=== PATIENT | female | born 1985 | race Caucasian/White ===

== ENCOUNTER → 2016-11-08 | Outpatient (CLI) | payer OTHER ==
[~2016-11-08] MED LIST: AMOX500C3 PO; BUDE1CAP6 PO; GADAVIST IV PRN; GLUCAGON FOR INJ 1 MG VIAL IM SCH; NURSING VERBAL MED ORDER ONE
--- NOTE | 2016-11-08 19:42 | DIAGNOSTIC IMAGING REPORT ---
MRI OF THE ABDOMEN AND PELVIS WITH AND WITHOUT CONTRAST ENTEROGRAPHY PROTOCOL CLINICAL HISTORY: Crohn's disease. COMPARISON STUDY: CT of the abdomen and pelvis July 19, [address] of the pelvis July 25, 2016. TECHNIQUE: Initially, the patient ingested oral contrast. Utilizing 1.5 Amy magnet and dedicated coil, multiplanar, multi echo imaging of the abdomen and pelvis was performed pre and postcontrast administration. Injection of 4.5 cc of Gadavist IV was uneventful. Post contrast imaging was performed utilizing dynamic enhancement. 1 mg of glucagon was administered IM at 11:12 AM. FINDINGS: There is a right lower quadrant diverting ileostomy. There are findings suggestive of a partial colectomy. Anorectal wall thickening and enhancement have likely improved since CT of July 25, 2016. Note is again made of indistinctness of the fat plane between the rectum and the levator musculature. A left perianal fistula with tiny associated 1.1 cm perianal abscess is noted. There is also a right perianal fistula. Several suspected perirectal fistulae are again noted. Associated inflammation is diminished since prior exams. There is no evidence for a bowel obstruction. No additional areas of bowel wall thickening are noted. There is no fluid within the abdomen. The liver, spleen, adrenal glands, kidneys and pancreas are normal. There is no hydronephrosis. Note is made of a cystic septated left adnexal lesion that measures 8.3 x 5.1 x 6 cm. This is similar to CT of July 25, 2016. Skeletal structures are unremarkable. IMPRESSION: 1. Findings consistent with a right lower quadrant diverting ileostomy and suspected partial colectomy. Anorectal wall thickening which has likely improved since CT of July 25, 2016. No additional sites of bowel wall thickening. No bowel obstruction. 2. Bilateral perianal fistulae with a small associated 1 cm left perianal abscess. Several perirectal fistulae. Associated inflammation has improved since prior exam. 3. No change in the 8.3 x 5.1 x 6 cm cystic septated left adnexal lesion. This could reflect a cystic ovarian lesion or peritoneal inclusion cyst. A follow-up pelvic ultrasound in 6 weeks is recommended. Electronically signed by: Car Gong M.D. 11/08/2016 7:40 PM Dictated Date/Time: 11/08/2016 11:57 AM
== END | disposition home or self-care (01) ==
LOC: C.MRI 09:34
PROVIDERS: ATTEND Internal Medicine Gastroenterology
DX: K50.90 Crohn's disease, unspecified, without complications (principal); K60.3 Anal fistula; K61.0 Anal abscess

== ENCOUNTER 2019-06-17 13:55 | Inpatient (IN) ==
--- OUTSIDE RECORDS SUMMARY | 2019-06-17 13:59 | External Medical Summary | Continuity of Care Document ---
:1985 Author Name Racquel Geiger, Provider Address Unavailable Unavailable , Care Team Providers Name Role Phone Mary Ellen Bolaños PA-C Unavailable [email or web address] WALKER Unavailable Unavailable Unavailable Unavailable Unavailable Problems Arthritis (716.90) (M19.90) Crohn's disease (555.9) (K50.90) Tachycardia-bradycardia (427.81) (I49.5) Pelvic mass in female (789.30) (R19.00) Allergies and Adverse Reactions Buffered Aspirin TABS (Allergy) Humira Pen KIT (Allergy) Ibuprofen CAPS (Allergy) Ketorolac TABS (Allergy) NSAIDs (Allergy) Remicade SOLR (Allergy) Sulfa Drugs (Allergy) Ultram TABS (Allergy) Medications Ferrous Sulfate 325 (65 Fe) MG Oral Tablet; TAKE 1 TABLET 3 TIMES DAILY. Start: 05-Jul-2015 Refills: 0 Multi Vitamin/Minerals TABS; TAKE 1 TABLET DAILY. Refills: 0 Procedures History of Small Bowel Resection Status: Completed History of Ileostomy Status: Completed History of Anal Fistulectomy Status: Com pleted Immunizations Immunizations not documented Family History Unknown Family Member Family history of Colon Cancer (V16.0) Status: Active C omments: Family History Family history of Cancer Status: Active Comments: Famil y History Mother Family history of cardiac disorder (V17.49) (Z82.49) Status: Active Grandfather Family history of cardiac disorder (V17.49) (Z82.49) Status: Active Social History - Smoking Status Smoker. current status unknown Plan of Treatment Planned Observations Planned Goals not documented Results No Known Results Results not documented Encounters Appointment; Mary Ellen Bolaños PA-C 03-Dec-2016 15:40 Encounter Diagnosis: Problem not documented
[2019-06-17 14:32] LABS: Partial Thromboplastin Ratio 0.8; Partial Thromboplastin Time 22.8 Seconds (21.0-31.0); Prothrombin Time 9.8 Seconds (9.0-12.0)
--- NOTE | 2019-06-17 14:36 | XRay Report ---
XR chest 1V portable CLINICAL HISTORY: sob dyspnea COMPARISON STUDY: 07/19/2015 FINDINGS: The bones soft tissues and hemidiaphragms are normal. The cardiomediastinal silhouette is n ormal. The lungs are clear. The pulmonary vasculature is normal. IMPRESSION: Negative chest. The above report was generated using voice recognition software. It may contain grammatical, syntax or spelling errors. Electronically signed by: Nathaniel Rivas M.D. 06/17/2019 2:35 PM
[2019-06-17 14:44] LABS: Albumin Level 3.2 gm/dl (3.4-5.0); BUN Creatinine Ratio 10.3 (10-20); Calcium 8.7 mg/dl (8.5-10.1); Creatinine Clr Calc Pharmacy 74.7 ml/min; Est GFR (African American) 107.5; Est GFR (Non-African American) 92.7; Potassium 3.6 mmol/L (3.5-5.1)
[2019-06-17 14:47] LABS: Albumin Globulin Ratio 0.7 (0.9-2); Bilirubin,Total 0.3 mg/dl (0.2-1); Globulin 4.6 gm/dl (2.5-4.0); Total Protein 7.8 gm/dl (6.4-8.2)
[2019-06-17] MEDS ORDERED: SODIUM CHLORIDE 0.9% 250 ML IV PRN (15:05)
[2019-06-17 15:26] LABS: Hematocrit (blood only) 21.3 % (37-47); Hemoglobin 5.3 g/dL (12.0-16.0); Mean Corpuscular Hgb Conc 24.9 g/dL (32-36); Platelet Count 299 K/uL (130-400); Red Blood Count 3.61 M/uL (4.2-5.4); White Blood Count 9.27 K/uL (4.8-10.8)
[2019-06-17 15:27] LABS: Anisocytosis Present; Basophils # (auto) 0.02 K/uL (0-0.2); Basophils % (auto) 0.2 %; Eosinophils % (auto) 1.1 %; Hypochromasia Present; Immature Granulocytes # (auto) 0.03 K/uL (0.00-0.02); Immature Granulocytes % (auto) 0.3 %; Lymphocytes # (auto) 1.11 K/uL (1.2-3.4); Microcytosis Present; Monocytes # (auto) 0.68 K/uL (0.11-0.59); Monocytes % (auto) 7.3 %; Neutrophils # (auto) 7.33 K/uL (1.4-6.5); Neutrophils % (auto) 79.1 %; Ovalocytes 1+; Schistocytes 1+
[2019-06-17 16:33] LABS: NT Pro B Type Natriuretic Pept 195 pg/ml (0-450); Troponin I < 0.015 ng/ml (0-0.045)
--- NOTE | 2019-06-17 17:14 | History & Physical Report ---
Date of Service June 17, 2019 Assessment & Plan (1) Severe anemia: Admit to inpatient on telemetry 3 units of crossmatched blood ordered in the ER and started there, continue orders. CBC every 12 hours DVT prophylaxis KATHRIN pichardo and Scd-s Iron study pending Full code Present on Admission?: Yes (2) Crohn disease: Stable patient is not taking any medication this time. Present on Admission?: Yes History of Present Illness Chief Complaint: severe anemia Primary Care Provider: Salome Molina 33 years old female with past medical history of Crohn disease and stoma placed 20 years ago prior drug abuse now on Suboxone presents to the emergency room after she was called by her PCP and informed that she has very low hemoglobin she will go to the emergency room as soon as possible. Patient reports that last night she went to [facility] [place] where she was checked and discharge in the morning. Patient H&H at that point was 5.2 and rechecked in the ER 5.3 /21.3. While in the ER patient was mildly tachycardic and blood bank was informed to secure 3 units of blood. Since patient received blood in the past and has antibodies 3 units were not given right away. Decision was made to admit patient on telemetry for blood transfusion. Allergies Allergy/AdvReac Type Severity Reaction Status Date / Time aspirin Allergy Severe ANAPHYLAXIS Unverified 06/17/19 14:57 infliximab Allergy Severe ANAPHYLAXIS Verified 06/17/19 14:57 NSAIDS (Non-Steroidal Allergy Unknown THROAT Verified 06/17/19 14:57 Anti-Inflamma SWELLING Sulfa (Sulfonamide Allergy Unknown throat Unverified 06/17/19 14:57 Antibiotics) swelling azathioprine AdvReac Unknown MIGRAINE Verified 06/17/19 14:57 Home Medications Home Medications Medication Instructions Recorded Confirmed Type acetaminophen [Tylenol] 650 - 975 mg PO TID PRN 06/17/19 06/17/19 History buprenorphine-naloxone [Suboxone] 0.5 film SUBLINGUAL TID 06/17/19 06/17/19 History Past Med/Surg History Medical History Crohn disease (Chronic) Rheumatoid arthritis (Chronic) History of MRSA infection (Chronic) "per records" Crohn's disease of colon with fistula (Acute) Endometriosis (Chronic) Surgical History H/O colectomy (Chronic) "total colectomy with ileoanal anastomosis 03/2006" Family History Other Blood clot in vein Social History Preferred Language: Pakistani Communication Ability: Effective 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 Beliefs That Will Affect Care: None Current Living Situation: Family Other Information That Helps Us Care for You: No Feels Safe at Home: Yes Safety Concerns: Feels Safe At This Time Smoking Status: Current every day smoker Tobacco Type: cigarettes ; Do You Dip or Chew Tobacco: No ; Second Hand Exposure: No ; Tobacco Cessation Education Requested by Patient: No Hx Alcohol Use: No Hx Substance Use: No Review of Systems Review of Systems: All systems reviewed & are unremarkable except as noted in HPI & below Physical Exam Constitutional: WD/WN, vitals as above well developed and + frail appearing Eyes: PERRL, conjunctivae normal, anicteric sclerae ENMT: external ear and nose normal, oropharynx normal Neck: trachea midline, no thyromegaly Respiratory: normal respiratory effort, lungs clear to auscultation Cardiovascular: RRR, no murmur, no edema Chest (Breasts): normal inspection/palpation of breasts Gastrointestinal (Abdomen): normal bowel sounds, soft, nontender, no hepatosplenomegaly Right-sided stoma, emptying properly clean dry and intact Musculoskeletal: no cyanosis or clubbing, extremities motor strength 5/5 Skin: no rashes, warm and dry Neurologic: patellar DTR's 2+ bilat, sensation intact Psychiatric: A+Ox3, euthymic affect Genitourinary: no vaginal lesions, no adnexal mass Lymphatic: no cervical or axillary lymphadenopathy Results & Data Vital Signs (Past 12 Hours) Vital Signs Temp Pulse Pulse Resp BP BP Pulse Ox 06/17/19 14:41 105 H 19 107/73 100 06/17/19 13:58 37.4 C 115 H 18 142/82 H 100 Code Status & VTE Plan Code Status Full code VTE Prophylaxis Plan VTE Prophylaxis will be ordered: No PG Care Time/CCT Total # of Minutes Spent Total Time Spent with Patient: Total time spent is greater than 50% in coordination of care (as documented) at patient's floor/unit and/or counseling patient:
[2019-06-17] MEDS ORDERED: POLYETHYLENE (MIRALAX) 17 GM PACK PO PRN (20:17)
[2019-06-17] MEDS ORDERED: ACETAMINOPHEN 325 MG TAB PO PRN (20:17)
[2019-06-17] MEDS ORDERED: ZOLPIDEM TARTRATE 5 MG TAB PO PRN (20:17)
[2019-06-17] MEDS ORDERED: ALUMINUM/MAGNESIUM SUSP 30 ML UDC PO PRN (20:17)
[2019-06-17] MEDS ORDERED: MAGNESIUM HYDROXIDE SUSP 30 ML UDC PO PRN (20:17)
[2019-06-17] MEDS ORDERED: BUPRENORPHINE NALOXONE SL SCH (21:00)
[2019-06-17] MEDS: BUPRENORPHINE/NALOXONE 8/2 MG TAB SL SCH (22:19)
--- NOTE | 2019-06-17 23:45 | Emergency Department Note ---
Entered by Raleigh Wilson acting as a scribe for Ignacio Ruiz MD ED Provider Note CHIEF COMPLAINT: Abnormal labs HISTORY OF PRESENT ILLNESS: The patient is a 33 year old female who presents to the Emergency Room with complaints of a constant low blood count shown on blood work she had done yesterday while at [facility]. The patient states that she originally went to the hospital after 4 days of constant lower extremity swelling. She notes she was on a water pill for 4 days however it did not improve her symptoms. The patient also notes that she has swelling and numbness that extends through her entire left lower extremity up to her hip. The patient reports she has a family history of blood clots so she believed that was the problem. She also notes that she feels some chest heaviness due to the fluid overload. While at [place] she had an unremarkable ultrasound however her lab work suggested that she did have a clot. The patient does have a history of Crohn's disease so she has had multiple blood transfusions for anemia. Since her Crohn's diagnosis, she had a colon resection and an ileostomy placed so she no longer is experiencing any hematochezia. She denies any blood in her ostomy bag. 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 Pt denies LOC, headache, fevers, chills, diaphoresis, visual changes, neck pain, breathing difficulties, nausea, vomiting, abdominal pain, back pain, melena, hematochezia, urinary symptoms, numbness, weakness, lymphadenopathy, rash, or other complaints. REVIEW OF SYSTEMS: See HPI for pertinent positives and negatives. A total of ten systems were reviewed and were otherwise negative. PMHx/PSHx: Crohn disease, RA, MRSA, Colectomy, Endometriosis SOCIAL HISTORY: Patient lives at home. PHYSICAL EXAM: GENERAL: Awake, alert, well-appearing, in no distress HENT: Normocephalic, atraumatic. Oropharynx unremarkable. EYES: Normal conjunctiva. Sclera non-icteric. NECK: Inspection normal. Non-tender. Supple. No nuchal rigidity. FROM. No masses. RESPIRATORY: Clear to auscultation. No wheezes. No rales. Normal respiratory effort. CARDIAC: Tachycardic rate. Normal rhythm. No murmurs. No rubs. Extremities warm and well perfused. Pulses equal. No JVD. GI: Soft, non-distended. No tenderness to palpation. No rebound or guarding. No masses. Ileostomy in the right lower quadrant. RECTAL: Deferred. MUSCULOSKELETAL: Atraumatic. Chest examination reveals no tenderness. The back is symmetrical on inspection without obvious abnormality. There is no CVA tende rness to palpation. No joint edema. LOWER EXTREMITIES: Calves are non-tender. 1+ bilateral edema, worse on the left. No discoloration. NEURO: Normal sensorium. No sensory or motor deficits noted. SKIN: Pale. No rash or jaundice noted. EMERGENCY DEPARTMENT COURSE: 1412: Past medical records reviewed. The patient was evaluated in room C09, and a complete history and physical examination were performed. 1510: I reevaluated and updated the patient. She consented to the blood transfusion. 1517: I spoke to Dr. Abreu - [facility] Hospitalist about the patient's case. She wi ll be accepting the patient for further evaluation. MEDICAL DECISION MAKING: C9 Prior records/ancillary studies reviewed. History of Crohn's. Ileostomy. Nursing notes reviewed and agree them. The patient's history was concerning for abnormal labs, leg swelling, and possi ble severe anemia. Differential diagnosis: Etiologies such as severe anemia, metabolic, infection, hypo/hyperglycemia, electrolyte abnormalities, cardiac sources, intracerebral event, toxicologic, , as well as others were entertained. Physical examination: As above. ER treatment provided: IV Lock Packed red blood cell transfusion. The patient was consented. 3 units of packed red blood cells ordered. On reassessment the patient felt better. Diagnostics interpretation by me: ECG: No acute ischemia. Sinus rhythm. The labs revealed severe anemia on CBC with hemoglobin of 5.3. No leukocytosis. The patient does not have any significant abnormalities for chemistry panel. Imaging studies: Chest x-ray was performed and was negative. Patient has severe anemia. She will need to be transfused. She was consented. I gave my usual and customary discussion regarding this issue. Consultation: A consultation was placed with the [facility] hospitalist. The case was discussed and diagnostics were reviewed. The patient was evaluated in the ER for further treatment. CRITICAL CARE: I have personally spent greater than 30 minutes of critical care time in the direct management of this patient. This includes bedside care, interpretation of diagnostic studies, and testing, discussion with consultants, patient, and family members, and other required patient management activities. This 30 minutes is in excess of all separately billable procedures. IMPRESSION: Severe anemia PLAN: Being evaluated by hospitalist The ivyibe's documentation has been prepared under my direction and personally reviewed by me in its entirety. I confirm that the note above accurately reflects all work, treatment, procedures, and medical decision making performed by me. 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 Beliefs That Will Affect Care: None Current Living Situation: Family Other Information That Helps Us Care for You: No Feels Safe at Home: Yes Safety Concerns: Feels Safe At This Time Smoking Status: Current every day smoker Tobacco Type: cigarettes ; Do You Dip or Chew Tobacco: No ; Second Hand Exposure: No ; Tobacco Cessation Education Requested by Patient: No Hx Alcohol Use: No Hx Substance Use: No Results & Data Vital Signs Vital Signs - 24 hr 06/17/19 13:58 06/17/19 14:41 06/17/19 15:00 Temperature 37.4 C Temperature Source Oral Sepsis Recent Fever Within 48 Hours No Sepsis New/Unexplained Change in Mental Status No Sepsis Action Taken by Nursing No Action Required Pulse Rate 115 H 93 H Pulse Rate [Apical] 105 H Pulse Rate from SpO2 Sensor Respiratory Rate 18 19 18 Respiratory Effort / Characteristics Non-Labored Spontaneous Respiratory Depth Normal Normal Respiratory Pattern Regular Blood Pressure 142/82 H Blood Pressure [Right Arm] 107/73 Blood Pressure Mean 102 Blood Pressure Mean [Right Arm] 84 Pulse Oximetry 100 100 Oxygen Delivery Method Room Air Room Air 06/17/19 15:03 06/17/19 15:30 06/17/19 16:00 Temperature Temperature Source Sepsis Recent Fever Within 48 Hours Sepsis New/Unexplained Change in Mental Status Sepsis Action Taken by Nursing Pulse Rate 108 H 83 82 Pulse Rate [Apical] Pulse Rate from SpO2 Sensor 109 H 82 80 Respiratory Rate 22 14 13 Respiratory Effort / Characteristics Respiratory Depth Respiratory Pattern Blood Pressure 114/62 100/57 L 144/95 H Blood Pressure [Right Arm] Blood Pressure Mean 79 71 111 Blood Pressure Mean [Right Arm] Pulse Oximetry 100 99 100 Oxygen Delivery Method 06/17/19 16:30 06/17/19 17:00 06/17/19 17:15 Temperature Temperature Source Sepsis Recent Fever Within 48 Hours Sepsis New/Unexplained Change in Mental Status Sepsis Action Taken by Nursing Pulse Rate 77 72 88 Pulse Rate [Apical] Pulse Rate from SpO2 Sensor 79 72 Respiratory Rate 13 10 L 15 Respiratory Effort / Characteristics Respiratory Depth Respiratory Pattern Blood Pressure 128/83 Blood Pressure [Right Arm] Blood Pressure Mean 98 Blood Pressure Mean [Right Arm] Pulse Oximetry 100 100 Oxygen Delivery Method Home Medications Current Medication List: was personally reviewed by me Laboratory Data Attestation: I reviewed the patient's lab results. Result diagrams: 06/17/19 14:15 06/17/19 14:15 Lab Results 06/17/19 06/17/19 06/17/19 Range/Units 14:15 14:15 14:15 WBC 9.27 (4.8-10.8) K/uL RBC 3.61 L (4.2-5.4) M/uL Hgb 5.3 L* (12.0-16.0) g/dL Hct 21.3 L (37-47) % MCV 59.0 L (80-100) fL MCH 14.7 L (25-34) pg MCHC 24.9 L (32-36) g/dL Plt Count 299 (130-400) K/uL Immature Gran % (Auto) 0.3 % Neut % (Auto) 79.1 % Lymph % (Auto) 12.0 % [place] % (Auto) 7.3 % Eos % (Auto) 1.1 % Baso % (Auto) 0.2 % Immature Gran # (Auto) 0.03 H (0.00-0.02) K/uL Neut # (Auto) 7.33 H (1.4-6.5) K/uL Lymph # (Auto) 1.11 L (1.2-3.4) K/uL [place] # (Auto) 0.68 H (0.11-0.59) K/uL Eos # (Auto) 0.10 (0-0.5) K/uL Baso # (Auto) 0.02 (0-0.2) K/uL Hypochromasia Present Anisocytosis Present Microcytosis Present Ovalocytes 1+ Schistocytes 1+ PT 9.8 (9.0-12.0) Seconds INR 1.0 (0.9-1.1) APTT 22.8 (21.0-31.0) Seconds PTT Ratio 0.8 Sodium 137 (136-145) mmol/L Potassium 3.6 (3.5-5.1) mmol/L Chloride 105 (98-107) mmol/L Carbon Dioxide 25 (21-32) mmol/L Anion Gap 7.0 (3-11) BUN 8 (7-18) mg/dl Creatinine 0.82 (0.6-1.2) mg/dl Est Cr Clr Drug Dosing 74.7 ml/min Est GFR ( Amer) 107.5 Est GFR (Non-Af Amer) 92.7 BUN/Creatinine Ratio 10.3 (10-20) Glucose 109 H (70-99) mg/dl Calcium 8.7 (8.5-10.1) mg/dl Total Bilirubin 0.3 (0.2-1) mg/dl AST 9 L (15-37) U/L ALT 9 L (12-78) U/L Alkaline Phosphatase 101 (45-117) U/L Troponin I (0-0.045) ng/ml NT-Pro-B Natriuret Pep (0-450) pg/ml Total Protein 7.8 (6.4-8.2) gm/dl Albumin 3.2 L (3.4-5.0) gm/dl Globulin 4.6 H (2.5-4.0) gm/dl Albumin/Globulin Ratio 0.7 L (0.9-2) Blood Type Antibody Screen Crossmatch 06/17/19 06/17/19 Range/Units 14:15 14:15 WBC (4.8-10.8) K/uL RBC (4.2-5.4) M/uL Hgb (12.0-16.0) g/dL Hct (37-47) % MCV (80-100) fL MCH (25-34) pg MCHC (32-36) g/dL Plt Count (130-400) K/uL Immature Gran % (Auto) % Neut % (Auto) % Lymph % (Auto) % [place] % (Auto) % Eos % (Auto) % Baso % (Auto) % Immature Gran # (Auto) (0.00-0.02) K/uL Neut # (Auto) (1.4-6.5) K/uL Lymph # (Auto) (1.2-3.4) K/uL [place] # (Auto) (0.11-0.59) K/uL Eos # (Auto) (0-0.5) K/uL Baso # (Auto) (0-0.2) K/uL Hypochromasia Anisocytosis Microcytosis Ovalocytes Schistocytes PT (9.0-12.0) Seconds INR (0.9-1.1) APTT (21.0-31.0) Seconds PTT Ratio Sodium (136-145) mmol/L Potassium (3.5-5.1) mmol/L Chloride (98-107) mmol/L Carbon Dioxide (21-32) mmol/L Anion Gap (3-11) BUN (7-18) mg/dl Creatinine (0.6-1.2) mg/dl Est Cr Clr Drug Dosing ml/min Est GFR ( Amer) Est GFR (Non-Af Amer) BUN/Creatinine Ratio (10-20) Glucose (70-99) mg/dl Calcium (8.5-10.1) mg/dl Total Bilirubin (0.2-1) mg/dl AST (15-37) U/L ALT (12-78) U/L Alkaline Phosphatase (45-117) U/L Troponin I < 0.015 (0-0.045) ng/ml NT-Pro-B Natriuret Pep 195 (0-450) pg/ml Total Protein (6.4-8.2) gm/dl Albumin (3.4-5.0) gm/dl Globulin (2.5-4.0) gm/dl Albumin/Globulin Ratio (0.9-2) Blood Type B Positive Antibody Screen NEGATIVE Crossmatch See Detail Administered Medications Buprenorphine/Naloxone (Suboxone 8 Mg/2 Mg) 0.5 tab SL TID XENA Stop: 07/17/19 20:59 Last Admin: 06/17/19 22:19 Dose: 0.5 tab Documented by: [id number] Imaging Data Radiologist's Impression: Radiology results as stated below per my review and the radiologist's interpretation: XR chest 1V portable CLINICAL HISTORY: sob dyspnea COMPARISON STUDY: 07/19/2015 FINDINGS: The bones soft tissues and hemidiaphragms are normal. The cardiomediastinal silhouette is normal. The lungs are clear. The pulmonary vasculature is normal. IMPRESSION: Negative chest. The above report was generated using voice recognition software. It may contain grammatical, syntax or spelling errors. Electronically signed by: Nathaniel Rivas M.D. 06/17/2019 2:35 PM ECG Data Attestation: I personally reviewed and interpreted this ECG as follows: Indication: other (Abnormal labs) Rate (beats per minute): 107 Rhythm: sinus tachycardia Findings: + Q waves (Anterioseptal); no PAC, no PVC, no ST depression, no ST elevation and no ectopy Blood Pressure Blood Pressure Findings: Normal blood pressure Discharge Plan Visit Data *Final* Discharge Date/Time: 06/17/19 19:20 Chief Complaint: Abnormal Labs/Diagnostic Testing Stated Complaint: LOW HEMOGLOBIN, INFECTION ED Provider: Ignacio Ruiz Discharge Problem: Severe anemia Patient Disposition: Admitted As Inpatient Discharge Instructions Interventions: ED Discharge Assessment Last Done: 06/17/19 19:20 The scribe's documentation has been prepared under my direction and personally reviewed by me in its entirety. I confirm that the note above accurately reflects all work, treatment, procedures, and medical decision making performed by me.
[2019-06-18 07:06] LABS: Hematocrit (blood only) 33.3 % (37-47); Hemoglobin 9.9 g/dL (12.0-16.0); Mean Corpuscular Hgb Conc 29.7 g/dL (32-36); Mean Corpuscular Volume 70.9 fL (80-100); Platelet Count 217 K/uL (130-400); RDW Coefficient of Variation 28.3 % (11.5-14.5); RDW Standard Deviation 72.9 fL (36.4-46.3)
[2019-06-18 07:29] LABS: Albumin Level 2.7 gm/dl (3.4-5.0); BUN Creatinine Ratio 13.4 (10-20); Calcium 8.1 mg/dl (8.5-10.1); Est GFR (African American) 138.4; Est GFR (Non-African American) 119.4; Potassium 4.1 mmol/L (3.5-5.1)
[2019-06-18 07:31] LABS: Anisocytosis Present; Basophils # (auto) 0.02 K/uL (0-0.2); Basophils % (auto) 0.3 %; Eosinophils # (auto) 0.19 K/uL (0-0.5); Eosinophils % (auto) 2.6 %; Hypochromasia Present; Immature Granulocytes # (auto) 0.01 K/uL (0.00-0.02); Immature Granulocytes % (auto) 0.1 %; Lymphocytes # (auto) 0.97 K/uL (1.2-3.4); Lymphocytes % (auto) 13.1 %; Microcytosis Present; Monocytes # (auto) 0.58 K/uL (0.11-0.59); Monocytes % (auto) 7.8 %; Neutrophils # (auto) 5.63 K/uL (1.4-6.5); Neutrophils % (auto) 76.1 %; Poikilocytosis Present; Polychromasia 2+; Reticulocyte % 0.8 % (0.5-2.0); Reticulocytes # 0.04 10^6/uL (0.02-0.10)
[2019-06-18 07:33] LABS: Albumin Globulin Ratio 0.6 (0.9-2); Bilirubin,Total 0.7 mg/dl (0.2-1); Globulin 4.2 gm/dl (2.5-4.0); Total Protein 6.9 gm/dl (6.4-8.2)
[2019-06-18] MEDS: BUPRENORPHINE/NALOXONE 8/2 MG TAB SL SCH ×2 (08:11→13:16)
[2019-06-18 08:23] LABS: Folate (Folic Acid) 11.74 ng/ml (>5.38)
[2019-06-18] MEDS ORDERED: CYANOCOBALAMIN 500 MCG TABLET (VITAMIN B-12) PO SCH (11:00)
[2019-06-18] MEDS ORDERED: IRON SUCROSE 100 MG in 0.9 % SODIUM CHLORIDE 100 ML IV SCH (11:30)
--- NOTE | 2019-06-20 15:36 | Discharge Summary ---
Date of Service June 20, 2019 Admission HPI Per Admitting Provider 33 year old female with past medical history of Crohn's disease and ileostomy placed 20 years ago along with prior drug abuse (now on Suboxone) presents to the emergency room after she was called by her PCP and informed that she had very low hemoglobin. Hb at time of [facility] ER presentation was 5.3. Denies any recent change in the appearance of her stool (no melena or bright red blood). She also reports her Crohn's has been inactive for some time. Principal Diagnosis severe iron deficiency anemia Discharge Exam Constitutional + thin; no acute distress ENMT external ear and nose normal, oropharynx normal Respiratory normal respiratory effort, lungs clear to auscultation Cardiovascular Rate/Rhythm: regular rate and regular rhythm Heart Sounds: normal S1 and normal S2; no murmur Vessels: posterior tibial pulses present and dorsalis pedis pulses present; no JVD Extremities: no edema Gastrointestinal (Abdomen) normal bowel sounds, soft, nontender, no hepatosplenomegaly ileostomy in place with yellow/brown stool; no gross blood; no melena Skin no rashes, warm and dry Psychiatric A+Ox3, euthymic affect Discharge Data Allergies Allergy/AdvReac Type Severity Reaction Status Date / Time aspirin Allergy Severe ANAPHYLAXIS Unverified 06/17/19 14:57 infliximab Allergy Severe ANAPHYLAXIS Verified 06/17/19 14:57 NSAIDS (Non-Steroidal Allergy Unknown THROAT Verified 06/17/19 14:57 Anti-Inflamma SWELLING Sulfa (Sulfonamide Allergy Unknown throat Unverified 06/17/19 14:57 Antibiotics) swelling azathioprine AdvReac Unknown MIGRAINE Verified 06/17/19 14:57 Procedures Performed 1. 3 units PRBCs 2. fecal occult blood NEGATIVE 3. IV venofer x 1 infusion Hospital Course (1) Iron deficiency anemia: The patient's presenting Hb was 5.3, improving to 9.9 post-transfusion of 3 units PRBCs. She tolerated the blood well without reaction or volume overload. Ferritin was 2 c/w severe iron deficiency B12 level was low-normal in the low 300s. Folate was normal. Stool from her ileostomy was heme negative. She does not have regular menses. She reports having had a total colectomy and also a large portion of her small bowel removed in the past because of her Crohn's disease. Thus, she is likely NOT absorbing any dietary iron (or b12) leading to her anemia. Venofer x 1 was given while hospitalized in addition to the PRBCs. She will be set up with Dr Murray Warren at the [facility] for ongoing treatment of her severe anemia. She will likely need additional runs of IV iron. I asked her to also take oral vitamin B12 daily at home. She may need parentera l injections of this. (2) Crohn disease: quiescent. has not had regular follow-up for this in some time. she was previously followed by GI out of the [facility] in [place]. recommended that she re-establish care with GI. (3) Ileostomy status: no issues. ostomy functioning well. Total Time Total Time Spent Total Time Spent (In Minutes): 40 Total Time Includes: Examination of the Patient, Discharge Planning, Medication Reconciliation and Communication With Other Providers (oncology/hematology) Discharge Plan Discharge Items Patient Disposition: Home - Self-Care Reason For Visit: SEVERE ANEMIA Discharge Diagnosis: severe iron deficiency anemia requiring 3 units of blood Discharge Goals: Diagnostic testing and Therapeutic intervention Activity: As commented below Activity Comment: avoid strenuous activities for 3-4 days then gradually increase activity Non-emergency contact: Primary Care Provider and Specialist Call non-emergency contact if: you have any medication questions, your symptoms worsen and your temperature is above 100.5 Follow-up/Referrals: Murray Warren DO [Physician] - 06/19/19 12:30 pm (An appointment has been made on your behalf with [facility] [place] [facility] to manage your anemia. Your appointment is at 12:30pm but the nurse will need to meet with you beginning at 12:20pm to complete paperwork for first appointment. Please call the office with questions or concerns. Thank you! ) Salome Molina PA-C [Primary Care Provider] - 07/01/19 11:15 am (An appointment has been made at your PCP's office on your behalf. Please call the office with any questions or concerns.) Diet: Low Fiber Addtl Provider Instructions: You were admitted for severe iron deficiency anemia. Your initial hemoglobin was 5.3, improving to 9.9 at time of discharge. Your iron deficiency is likely due to inability to absorb iron from your diet because of prior bowel resections. Your stool was NEGATIVE for blood making blood loss from your GI tract less likely. You will likely need additional IV iron infusions. Your b12 level was also low-normal. Recommendations - 1. see the [facility] at [facility] to discuss additional IV iron infusions. 2. see your GI doctor in [place] to ensure your Crohn's disease is controlled/stable. I would do this in the next 2-3 weeks. 3. take [id number] vitamin B12 1000mcg daily - perhaps indefinitely. You may need injections of this - you can discuss this with the ribbon blocker (blood specialist). 4. follow-up with your family doctor as scheduled (see separate section). Return to [facility] if - -you have dizziness or lightheadedness -you have palpitations/rapid heart beating -you have shortness of breath -you have worsening swelling of your feet/ankles -you have blood in your ostomy bag (dark stool/black stool or bright red blood) -any other concerns Prescriptions: New cyanocobalamin (vitamin B-12) [Vitamin B-12] 500 mcg Tablet 1,000 mcg PO QAM Qty: 60 RF: 0 Continued acetaminophen [Tylenol] 325 mg Tablet 650 - 975 mg PO TID PRN (Reason: Pain) RF: 0 buprenorphine-naloxone [Suboxone] 8-2 mg film 0.5 film sublingual TID RF: 0 Stand-Alone Forms: My [facility] [employer] [facility]/Other Patient Handouts: Vitamin B12 Cyanocobalamin Oral tablet extended- release, Hemoglobin Discharge Orders: Discharge Order (Routine); Ordered 06/18/19 Ordered By: Chapin Garcia Admission Data Admit Date/Time: 06/17/19 17:22 Attending Provider: Chapin Garcia Admit Provider: Deedee Abreu Primary Care Provider: Salome Molina Other Providers: Deedee Abreu Service: Telemetry Other Interventions: Discharge Summary Assessment (RN) Last Done: 06/18/19 15:06 Pending Studies at Discharge: No DC Date/Time DO NOT enter until pt leaves facility: 06/18/19 15:59
== END 2019-06-18 15:59 | disposition home or self-care (01) | DRG 812 ==
LOC: ED 13:55 → SUATTDRO 17:22 → 2S 17:22

== ENCOUNTER 2022-08-26 14:53 | Observation (INO) ==
[2022-08-26 16:06] LABS: Basophils # (auto) 0.01 K/uL (0-0.2); Basophils % (auto) 0.2 %; Eosinophils # (auto) 0.02 K/uL (0-0.50); Eosinophils % (auto) 0.4 %; Hematocrit (blood only) 39.5 % (34.1-44.9); Hemoglobin 12.7 g/dl (12.0-16.0); Immature Granulocytes # (auto) 0.02 K/uL (0.00-0.02); Immature Granulocytes % (auto) 0.4 %; Lymphocytes # (auto) 0.86 K/uL (1.2-3.4); Mean Corpuscular Hemoglobin 26.3 pg (25.0-34.0); Mean Corpuscular Hgb Conc 32.2 g/dL (32.0-36.0); Mean Corpuscular Volume 81.8 fL (80.0-100.0); Monocytes # (auto) 0.35 K/uL (0.24-0.82); Monocytes % (auto) 7.3 %; Neutrophils # (auto) 3.52 K/uL (1.4-6.5); Neutrophils % (auto) 73.7 %; Platelet Count 176 K/uL (130-400); RDW Coefficient of Variation 17.4 % (11.5-14.5); RDW Standard Deviation 51.6 fL (36.4-46.3); Red Blood Count 4.83 M/uL (3.93-5.22); White Blood Count 4.78 K/ul (4.8-10.8)
--- NOTE | 2022-08-26 16:24 | Emergency Department Note ---
Impression & Plan Abdominal pain, Crohn disease, UTI (urinary tract infection), Acute hypokalemia, Metabolic acidosis ED Provider Note NAME: JANAY GIL AGE: 36 SEX: F : 1985 ARRIVES VIA: Ambulance INFORMANT: Patient ED PROVIDER(S): Pérez Vidal DO CHIEF COMPLAINT: abdominal pain HPI: Patient is a 36-year-old female with a past medical history of Crohn's disease with ileostomy, endometriosis, left ovarian mass which she is trying to schedule with [facility] for resection as they believe this is cancerous. This was discovered in May and has tripled in size. She denies any headache or change in vision. No chest pain or shortness of breath. Pain is a 10 out of 10 on the left side where her pain typically is but now has rotated to the right lower quadrant which is new. She has been having normal output through her ileostomy. She admits to dysuria urgency and frequency which has been present the whole time. No other exacerbating or remitting factors. She has not been able to keep anything down for the past 2 days. ROS: See above HPI for pertinent positives & negatives. A total of 10 systems reviewed and were otherwise negative. PAST MEDICAL HISTORY:See Below PAST SURGICAL HISTORY:See Below FAMILY HISTORY:See Below SOCIAL HISTORY:See Below HOME MEDICATIONS:See Below ALLERGIES:See Below VITALS:See Below PHYSICAL EXAMINATION: GENERAL: Sitting up in bed, alert, chronically ill-appearing, malnourished, cachectic EYE EXAM: normal conjunctiva. OROPHARYNX: no exudate, no erythema, lips, buccal mucosa, and tongue normal and mucous membranes are moist NECK: supple, no nuchal rigidity, no adenopathy, non-tender LUNGS: Clear to auscultation. Normal chest wall mechanics HEART: no murmurs, S1 normal and S2 normal ABDOMEN: abdomen soft, mild diffuse tenderness with ileum ostomy in right lower quadrant with the fourth of the bag filled UPPER EXTREMITIES: upper extremities are grossly normal. LOWER EXTREMITIES: No pitting edema. NEURO EXAM: Normal sensorium, cranial nerves II-XII grossly intact, normal speech, no gross weakness of arms, no gross weakness of legs. MEDICAL DECISION MAKING: Patient is a 36-year-old female who presents ER for abdominal pain which is chronic on the left side and new on the right side associate with nausea and vomiting. IV was established blood work was obtained. Labs show no significant anemia. Mild leukopenia at 4. BMP with a hypokalemia 2.7. Metabolic acidosis with a CO2 of 17. Glucose was significant low at 59. She was placed on D5 normal saline. She was given bolus of IV fluids. LFTs was unremarkable. Lipase was normal. UA does suggest a UTI. COVID was negative. Patient was given IV morphine. CT did not appear to be significantly changed from previous. She was updated bedside. Discussed with the hospitalist for further evaluation. Triage Nursing notes reviewed. Limited review of prior medical records performed Vital Signs: reviewed and remarkable for no significant abnormalities Differential diagnosis: Differential diagnoses includes but is not limited to gastritis, peptic ulcer disease, GERD, gallbladder disease, pancreatitis, small bowel obstruction, acute coronary syndrome, pericarditis, ischemic bowel, irritable bowel disease, irritable bowel syndrome, appendicitis, diverticulitis, malignancy, hernia, urinary tract infection, torsion, /ectopic (if female), perforation, trauma, infectious. ER treatment provided: See below Diagnostics interpreted by me: ECG: none Cardiac Monitoring: An order was placed for continuous cardiac monitoring. The monitor shows a rate of 91 with sinus rhythm. Laboratory studies: As stated above and show below. Imaging studies: CT abdomen pelvis without significant change from previous Consultation(s): Discussed with Vanessa Cooper for further evaluation Procedures: none Critical Care: None Past Med/Surg History Medical History (Updated 08/26/22 @ 21:06 by Pérez Vidal DO) Crohn disease Crohn's disease of colon with fistula Endometriosis History of MRSA infection "per records" Rheumatoid arthritis Surgical History H/O colectomy "total colectomy with ileoanal anastomosis 03/2006" Family History Other Blood clot in vein Social History Smoking Status: Current every day smoker Tobacco Type: Cigarettes Second Hand Exposure: No; Hx Alcohol Use: No Hx Substance Use: No Preferred Language: Tajik Communication Ability: Effective [employer] Required: No Beliefs That Will Affect Care: None Current Living Situation: Family Feels Safe at Home: Yes Assistive Devices: None Allergies Allergies Allergy/AdvReac Type Severity Reaction Status Date / Time aspirin Allergy Severe ANAPHYLAXIS Unverified 06/17/19 14:57 infliximab Allergy Severe ANAPHYLAXIS Verified 06/17/19 14:57 NSAIDS (Non-Steroidal Allergy Unknown THROAT Verified 06/17/19 14:57 Anti-Inflamma SWELLING Sulfa (Sulfonamide Allergy Unknown throat Unverified 06/17/19 14:57 Antibiotics) swelling azathioprine AdvReac Unknown MIGRAINE Verified 06/17/19 14:57 Home Meds Home Medications Medication Instructions Recorded Confirmed acetaminophen 500 mg tablet 1,000 mg PO Q6H PRN Pain 08/26/22 08/26/22 (Tylenol Extra Strength) buprenorphine HCl 8 mg sublingual 4 mg sublingual TID 08/26/22 08/26/22 tablet cefpodoxime 200 mg tablet 200 mg PO BID 08/26/22 08/26/22 cyanocobalamin (vitamin B-12) 1,000 mcg IM MO 08/26/22 08/26/22 1,000 mcg/mL injection solution epinephrine 0.3 mg/0.3 mL 0.3 mg IM Q4H PRN Allergic Reaction 08/26/22 08/26/22 injection, auto-injector fluticasone fur. 200 mcg-umeclid 1 inh inhalation DAILY 08/26/22 08/26/22 62.5 mcg-vilant 25 mcg inhalat.powder (Trelegy Ellipta) magnesium oxide 400 mg (241.3 mg 400 mg PO DAILY 08/26/22 08/26/22 magnesium) tablet potassium chloride 20 mEq 20 meq PO DAILY 08/26/22 08/26/22 tablet,extended release(part/cryst) Previous Rx's Medication Instructions Recorded cyanocobalamin (vitamin B-12) 500 1,000 mcg PO QAM #60 tabs 06/18/19 mcg tablet (Vitamin B-12) Results & Data (ED) Vital Signs Vital Signs - 24 hr 08/26/22 15:03 08/26/22 15:42 08/26/22 15:43 Temperature 37.0 C Temperature Source Oral Pulse Rate 112 H 91 H Pulse Rate from SpO2 Sensor Pulse Rhythm Regular Pulse Strength Normal Respiratory Rate 18 14 Respiratory Effort / Characteristics Non-Labored Spontaneous Respiratory Depth Normal Respiratory Pattern Regular Blood Pressure 111/74 100/74 Blood Pressure Mean 86 82 Blood Pressure Position Sitting Pulse Oximetry 98 95 95 Oxygen Delivery Method Room Air Room Air Sepsis Recent Fever Within 48 Hours No Sepsis New/Unexplained Change in Mental Status No Sepsis Action Taken by Nursing No Action Required 08/26/22 16:00 08/26/22 17:00 08/26/22 18:30 Temperature Temperature Source Pulse Rate 86 68 60 Pulse Rate from SpO2 Sensor 66 Pulse Rhythm Pulse Strength Respiratory Rate 14 15 16 Respiratory Effort / Characteristics Respiratory Depth Respiratory Pattern Blood Pressure 103/73 92/57 L 93/69 L Blood Pressure Mean 83 68 77 Blood Pressure Position Pulse Oximetry 96 100 100 Oxygen Delivery Method Sepsis Recent Fever Within 48 Hours Sepsis New/Unexplained Change in Mental Status Sepsis Action Taken by Nursing 08/26/22 19:01 08/26/22 19:30 08/26/22 20:00 Temperature Temperature Source Pulse Rate 55 L 67 71 Pulse Rate from SpO2 Sensor 57 L 66 Pulse Rhythm Pulse Strength Respiratory Rate 15 17 15 Respiratory Effort / Characteristics Respiratory Depth Respiratory Pattern Blood Pressure 81/60 L 109/74 99/65 L Blood Pressure Mean 67 85 76 Blood Pressure Position Pulse Oximetry 100 97 97 Oxygen Delivery Method Room Air Room Air Sepsis Recent Fever Within 48 Hours Sepsis New/Unexplained Change in Mental Status Sepsis Action Taken by Nursing 08/26/22 20:30 08/26/22 21:00 Temperature Temperature Source Pulse Rate 79 75 Pulse Rate from SpO2 Sensor Pulse Rhythm Pulse Strength Respiratory Rate 17 19 Respiratory Effort / Characteristics Respiratory Depth Respiratory Pattern Blood Pressure 113/72 107/75 Blood Pressure Mean 85 85 Blood Pressure Position Pulse Oximetry 96 98 Oxygen Delivery Method Room Air Room Air Sepsis Recent Fever Within 48 Hours Sepsis New/Unexplained Change in Mental Status Sepsis Action Taken by Nursing Laboratory Data Result diagrams: 08/26/22 15:00 08/26/22 17:15 Lab Results 08/26/22 08/26/22 08/26/22 Range/Units 15:00 15:00 15:35 WBC 4.78 L (4.8-10.8) K/ul RBC 4.83 (3.93-5.22) M/uL Hgb 12.7 (12.0-16.0) g/dl POC Hgb (12.0-16.0) g/dl Hct 39.5 (34.1-44.9) % POC Hct (37-47) % MCV 81.8 (80.0-100.0) fL MCH 26.3 (25.0-34.0) pg MCHC 32.2 (32.0-36.0) g/dL RDW Std Deviation 51.6 H (36.4-46.3) fL RDW Coeff of Qu[place] 17.4 H (11.5-14.5) % Plt Count 176 (130-400) K/uL MPV 11.0 (9.4-12.3) fL Immature Gran % (Auto) 0.4 % Neut % (Auto) 73.7 % Lymph % (Auto) 18.0 % Bell % (Auto) 7.3 % Eos % (Auto) 0.4 % Baso % (Auto) 0.2 % Neut # (Auto) 3.52 (1.4-6.5) K/uL Lymph # (Auto) 0.86 L (1.2-3.4) K/uL Bell # (Auto) 0.35 (0.24-0.82) K/uL Eos # (Auto) 0.02 (0-0.50) K/uL Baso # (Auto) 0.01 (0-0.2) K/uL Immature Gran # (Auto) 0.02 (0.00-0.02) K/uL POC Sodium (135-144) mmol/L Sodium Cancelled POC Potassium (3.3-5.0) mmol/L Potassium Cancelled POC Chloride (101-112) mmol/L Chloride Cancelled Carbon Dioxide Cancelled POC Total CO2 (24-31) mmol/L Anion Gap Cancelled POC Anion Gap (16-25) mmol/L POC BUN (7-18) mg/dl BUN Cancelled Creatinine Cancelled POC Creatinine (0.6-1.3) mg/dl Est Cr Clr Drug Dosing Cancelled Est GFR ( Amer) Cancelled Est GFR (Non-Af Amer) Cancelled BUN/Creatinine Ratio Cancelled Glucose Cancelled POC Glucose (70-99) mg/dl POC Glucose (other) (70-99) mg/dl Calcium Cancelled POC Ioniz Calcium Saadia (1.12-1.32) mmol/l Magnesium (1.7-2.4) mg/dl Total Bilirubin Cancelled AST Cancelled ALT Cancelled Alkaline Phosphatase Cancelled Total Protein Cancelled Albumin Cancelled Globulin Cancelled Albumin/Globulin Ratio Cancelled Lipase Cancelled Urine Color Dark Yellow Urine Appearance Cloudy A (Clear) Urine pH 7.0 (4.5-7.5) Ur Specific [place] 1.029 (1.000-1.030) Urine Protein 2+ H (Negative) Urine Glucose (UA) Negative (Negative) Urine Ketones Trace H (Negative) Urine Blood 2+ H (Negative) Urine Nitrite Negative (Negative) Urine Bilirubin Negative (Negative) Urine Urobilinogen Negative (Negative) Ur Leukocyte Esterase 3+ H (Negative) Urine WBC (Auto) >30 H (0-5) /hpf Urine RBC (Auto) 10-30 H (0-4) /hpf U Hyaline Cast (Auto) 1-5 (0-5) /lpf U Epithel Cells (Auto) 10-20 H (0-5) /lpf Urine Bacteria (Auto) Negative (Negative) POC Ur Test (NEG) SARS-CoV-2, RNA, NAAT (NEGATIVE) 08/26/22 08/26/22 08/26/22 Range/Units 15:35 17:15 17:15 WBC (4.8-10.8) K/ul RBC (3.93-5.22) M/uL Hgb (12.0-16.0) g/dl POC Hgb (12.0-16.0) g/dl Hct (34.1-44.9) % POC Hct (37-47) % MCV (80.0-100.0) fL MCH (25.0-34.0) pg MCHC (32.0-36.0) g/dL RDW Std Deviation (36.4-46.3) fL RDW Coeff of Quoc (11.5-14.5) % Plt Count (130-400) K/uL MPV (9.4-12.3) fL Immature Gran % (Auto) % Neut % (Auto) % Lymph % (Auto) % Bell % (Auto) % Eos % (Auto) % Baso % (Auto) % Neut # (Auto) (1.4-6.5) K/uL Lymph # (Auto) (1.2-3.4) K/uL Bell # (Auto) (0.24-0.82) K/uL Eos # (Auto) (0-0.50) K/uL Baso # (Auto) (0-0.2) K/uL Immature Gran # (Auto) (0.00-0.02) K/uL POC Sodium (135-144) mmol/L Sodium 141 POC Potassium (3.3-5.0) mmol/L Potassium 2.7 L POC Chloride (101-112) mmol/L Chloride 119 H Carbon Dioxide 17 L POC Total CO2 (24-31) mmol/L Anion Gap 5 POC Anion Gap (16-25) mmol/L POC BUN (7-18) mg/dl BUN 8 Creatinine 0.48 L POC Creatinine (0.6-1.3) mg/dl Est Cr Clr Drug Dosing 106.6 Est GFR ( Amer) 144.2 Est GFR (Non-Af Amer) 124.4 BUN/Creatinine Ratio 16.7 Glucose 58 L POC Glucose (70-99) mg/dl POC Glucose (other) (70-99) mg/dl Calcium 6.1 L POC Ioniz Calcium Saadia (1.12-1.32) mmol/l Magnesium 1.7 (1.7-2.4) mg/dl Total Bilirubin 0.2 AST 8 L ALT 5 L Alkaline Phosphatase 46 Total Protein 5.1 L Albumin 2.8 L Globulin 2.3 L Albumin/Globulin Ratio 1.2 Lipase 31 Urine Color Urine Appearance (Clear) Urine pH (4.5-7.5) Ur Specific [place] (1.000-1.030) Urine Protein (Negative) Urine Glucose (UA) (Negative) Urine Ketones (Negative) Urine Blood (Negative) Urine Nitrite (Negative) Urine Bilirubin (Negative) Urine Urobilinogen (Negative) Ur Leukocyte Esterase (Negative) Urine WBC (Auto) (0-5) /hpf Urine RBC (Auto) (0-4) /hpf U Hyaline Cast (Auto) (0-5) /lpf U Epithel Cells (Auto) (0-5) /lpf Urine Bacteria (Auto) (Negative) POC Ur Test NEG (NEG) SARS-CoV-2, RNA, NAAT (NEGATIVE) 08/26/22 08/26/22 08/26/22 Range/Units 17:22 19:27 20:25 WBC (4.8-10.8) K/ul RBC (3.93-5.22) M/uL Hgb (12.0-16.0) g/dl POC Hgb 8.8 L (12.0-16.0) g/dl Hct (34.1-44.9) % POC Hct 26 L (37-47) % MCV (80.0-100.0) fL MCH (25.0-34.0) pg MCHC (32.0-36.0) g/dL RDW Std Deviation (36.4-46.3) fL RDW Coeff of Quoc (11.5-14.5) % Plt Count (130-400) K/uL MPV (9.4-12.3) fL Immature Gran % (Auto) % Neut % (Auto) % Lymph % (Auto) % Bell % (Auto) % Eos % (Auto) % Baso % (Auto) % Neut # (Auto) (1.4-6.5) K/uL Lymph # (Auto) (1.2-3.4) K/uL Bell # (Auto) (0.24-0.82) K/uL Eos # (Auto) (0-0.50) K/uL Baso # (Auto) (0-0.2) K/uL Immature Gran # (Auto) (0.00-0.02) K/uL POC Sodium 145 H (135-144) mmol/L Sodium POC Potassium 2.6 L (3.3-5.0) mmol/L Potassium POC Chloride 116 H (101-112) mmol/L Chloride Carbon Dioxide POC Total CO2 16 L (24-31) mmol/L Anion Gap POC Anion Gap 17.0 (16-25) mmol/L POC BUN 6 L (7-18) mg/dl BUN Creatinine POC Creatinine 0.5 L (0.6-1.3) mg/dl Est Cr Clr Drug Dosing Est GFR ( Amer) Est GFR (Non-Af Amer) BUN/Creatinine Ratio Glucose POC Glucose 108 H (70-99) mg/dl POC Glucose (other) 59 L* (70-99) mg/dl Calcium POC Ioniz Calcium [place] 0.93 L (1.12-1.32) mmol/l Magnesium (1.7-2.4) mg/dl Total Bilirubin AST ALT Alkaline Phosphatase Total Protein Albumin Globulin Albumin/Globulin Ratio Lipase Urine Color Urine Appearance (Clear) Urine pH (4.5-7.5) Ur Specific [place] (1.000-1.030) Urine Protein (Negative) Urine Glucose (UA) (Negative) Urine Ketones (Negative) Urine Blood (Negative) Urine Nitrite (Negative) Urine Bilirubin (Negative) Urine Urobilinogen (Negative) Ur Leukocyte Esterase (Negative) Urine WBC (Auto) (0-5) /hpf Urine RBC (Auto) (0-4) /hpf U Hyaline Cast (Auto) (0-5) /lpf U Epithel Cells (Auto) (0-5) /lpf Urine Bacteria (Auto) (Negative) POC Ur Test (NEG) SARS-CoV-2, RNA, NAAT NEGATIVE (NEGATIVE) Administered Medications Dextrose/Sodium Chloride (D5w And Nss) 1,000 mls @ 125 mls/hr IV .Q8H XENA Stop: 09/25/22 18:59 Last Admin: 08/26/22 19:16 Dose: 125 mls/hr Documented By: MILDRED Discontinued Medications Sodium Chloride (Nss 1000ml) 2,000 mls @ 999 mls/hr IV .Q2H1M ONE Stop: 08/26/22 18:25 Last Infusion: 08/26/22 18:40 Dose: 0 mls/hr Documented By: Admin: 08/26/22 16:32 Dose: 999 mls/hr Documented By: TEREZA Potassium Chloride (K Vickey / Wtr) 10 meq in 100 mls @ 100 mls/hr IV Q1H XENA; Protocol Stop: 08/26/22 20:59 Last Admin: 08/26/22 20:18 Dose: 100 mls/hr Documented By: Infusion: 08/26/22 20:16 Dose: 100 mls/hr Documented By: Admin: 08/26/22 19:16 Dose: 100 mls/hr Documented By: MILDRED Magnesium Sulfate/Dextrose (Magnesium Sulfate / D5w) 1 gm in 100 mls @ 50 mls/hr IV ONE ONE Stop: 08/26/22 20:46 Last Infusion: 08/26/22 21:00 Dose: 0 mls/hr Documented By: Admin: 08/26/22 19:16 Dose: 50 mls/hr Documented By: MILDRED Ceftriaxone Sodium (Rocephin) 2,000 mg in 70 mls @ 140 mls/hr IV NOW STA Stop: 08/26/22 20:43 Last Infusion: 08/26/22 20:49 Dose: 0 mls/hr Documented By: Admin: 08/26/22 20:19 Dose: 140 mls/hr Documented By: MILDRED Ioversol (Optiray 350 100ml) 88 ml IV ONCE ONE Stop: 08/26/22 18:04 Last Admin: 08/26/22 18:05 Dose: 88 ml Documented By: JAMIE Morphine Sulfate (Morphine Sulfate 4 Mg/Ml 1 Ml Carp\\Vial) 4 mg IV NOW STA Stop: 08/26/22 16:26 Last Admin: 08/26/22 16:32 Dose: 4 mg Documented By: TEREZA Morphine Sulfate (Morphine Sulfate 10 Mg/Ml Carp/Vial) 6 mg IV NOW STA Stop: 08/26/22 20:11 Last Admin: 08/26/22 20:16 Dose: 6 mg Documented By: MILDRED Ondansetron HCl (Ondansetron Inj 2 Mg/Ml 2 Ml Vial) 4 mg IV NOW STA Stop: 08/26/22 16:26 Last Admin: 08/26/22 16:32 Dose: 4 mg Documented By: TEREZA Ondansetron HCl (Ondansetron Inj 2 Mg/Ml 2 Ml Vial) 4 mg IV NOW STA Stop: 08/26/22 20:11 Last Admin: 08/26/22 20:16 Dose: 4 mg Documented By: MILDRED Imaging Data Radiologist's Impression: Abdomen/Pelvis CT 08/26/22 16:24 CT SCAN OF THE ABDOMEN AND PELVIS WITH IV CONTRAST CLINICAL HISTORY: Generalized abdominal pain. COMPARISON STUDY: Abdominal CT dated 07/19/2015. TECHNIQUE: Following the IV administration of 88 cc of Optiray 350, CT scan of the abdomen and pelvis is performed from the lung bases to the proximal femora. Images are reviewed in the axial, sagittal, and coronal planes. IV contrast was administered without complication. A dose lowering technique was utilized adhering to the principles of ALARA. CT DOSE: 246.84 mGy.cm FINDINGS: Lung bases: The heart is normal in size and without pericardial effusion. The lung bases are clear. Liver: The contrast-enhanced liver is enlarged, measuring 20.0 cm in length. The liver is otherwise normal in contour and attenuation. Fatty infiltration is seen adjacent to the falciform ligament. There is no intrahepatic biliary ductal dilatation. The hepatic veins and portal veins are patent. There is mild periportal edema. Gallbladder: Unremarkable. Spleen: Normal in size and attenuation. Pancreas: Unremarkable. Adrenal glands: Unremarkable. Kidneys: The contrast enhanced kidneys are normal in size and without hydronephrosis. The kidneys enhance symmetrically. Abdominal vasculature: The abdominal aorta is normal in course and caliber. Bowel: There is postoperative change from a subtotal colectomy with a rectal pouch formation and right lower quadrant ileostomy. No bowel obstruction is seen. Productive fatty change is seen surrounding the rectum. No thick-walled or hyperemic small bowel loops are suggested. There are bilateral fluid-containing tract seen extending from the perianal soft tissues to the dermal surface along the inferior gluteal crease consistent with perianal fistulas. There is overly ing dermal thickening. Mild infiltration suggests surrounding cellulitis. Peritoneum: There is no intraperitoneal free air or abdominal ascites. Lymphadenopathy: None. Pelvic viscera: The bladder wall appears circumferentially thickened. The uterus is normal as visualized. An involuting follicle is seen in the right ovary. A cystic lesion containing internal septations is again seen in the left ovary. This measures approximately 12 x 8 x 10 cm and causes mass effect within the pelvis. There is a 1.7 cm enhancing mural nodule seen on image #297. Skeletal structures: No lytic or blastic lesions are seen. IMPRESSION: 1. There is postoperative change from subtotal colectomy with right lower quadrant ileostomy and rectal pouch formation. No bowel obstruction is identified. 2. No thick-walled or hyperemic small bowel is identified. 3. 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 These were also seen on the 2015 examination. Correlate clinically for evidence of surrounding cellulitis. 4. A septated cystic left ovarian lesion linear with enhancing mural nodule is noted in the left adnexa. Ovarian neoplasm is the diagnosis of exclusion. Gynecological surgical assessment is advised. 5. The bladder wall appears circumferentially thickened. Correlate with clinical findings and urinalysis. 6. Hepatomegaly. 7. Additional findings as above. ACT 112: Negative or not required by law. Electronically signed by: Olivier Camarena M.D. 08/26/2022 8:11 PM Discharge Plan Visit Data Chief Complaint: Abdominal Pain ED Provider: Pérez Vidal Discharge Problem: Abdominal pain, Crohn disease, UTI (urinary tract infection), Acute hypokalemia, Metabolic acidosis Forms Stand Alone Forms: My [employer] Prescriptions Prescriptions: No Action cyanocobalamin (vitamin B-12) [Vitamin B-12] 500 mcg Tablet 1,000 mcg PO QAM Qty: 60 0RF Rx Instructions: purchase over the counter cefpodoxime 200 mg tablet 200 mg PO BID acetaminophen [Tylenol Extra Strength] 500 mg Tablet 1,000 mg PO Q6H PRN (Reason: Pain) potassium chloride 20 mEq tablet,ER particles/crystals 20 meq PO DAILY magnesium oxide 400 mg (241.3 mg magnesium) tablet 400 mg PO DAILY cyanocobalamin (vitamin B-12) [Vitamin B-12] 1,000 mcg/mL Solution 1,000 mcg IM MO epinephrine [Epi E-Z Pen] 0.3 mg/0.3 mL Auto-Injector 0.3 mg IM Q4H PRN (Reason: Allergic Reaction) buprenorphine HCl 8 mg tablet, sublingual 4 mg SUBLINGUAL TID Rx Instructions: Dr hopkins says 1/2 tab daily, patient says she takes 1/2 tid. Trelegy Ellipta 200-62.5-25 mcg blister with device 1 inh INHALATION DAILY Referrals Referrals: Salome Molina PA-C [Primary Care Provider] -
[2022-08-26] MEDS ORDERED: MoRPHine SULFATE 4 MG/ML 1 ML CARP\\VIAL IV STA (16:25)
[2022-08-26] MEDS ORDERED: ONDANSETRON INJ 2 MG/ML 2 ML VIAL IV STA ×2 (16:25→20:10)
[2022-08-26] MEDS ORDERED: SODIUM CHLORIDE 0.9% 1000ML 2,000 ML IV ONE (16:25)
[2022-08-26 16:56] LABS: Appearance Urine Cloudy (Clear); Bacteria Urine Automated Negative (Negative); Bilirubin Urine Negative (Negative); Blood Urine 2+ (Negative); Color Urine Dark Yellow; Glucose Urine UA Negative (Negative); Ketones Urine Trace (Negative); Leukocyte Esterase Urine 3+ (Negative); Nitrite Urine Negative (Negative); Protein Urine 2+ (Negative); Specific Gravity Urine 1.029 (1.000-1.030); Urobilinogen Urine Negative (Negative); WBC Urine Automated >30 /hpf (0-5)
[2022-08-26 17:36] LABS: iSTAT Creatinine 0.5 mg/dl (0.6-1.3); iSTAT Hemoglobin 8.8 g/dl (12.0-16.0); iSTAT Ionized Calcium 0.93 mmol/l (1.12-1.32); iSTAT Potassium 2.6 mmol/L (3.3-5.0)
[2022-08-26] MEDS ORDERED: OPTIRAY 350 100ml IV ONE (18:03)
[2022-08-26 18:16] LABS: Albumin Globulin Ratio 1.2 (0.9-2); Albumin Level 2.8 gm/dl (3.4-5.0); BUN Creatinine Ratio 16.7 (10-20); Bilirubin,Total 0.2 mg/dl (0.2-1.0); Calcium 6.1 mg/dl (8.5-10.1); Creatinine Clr Calc Pharmacy 106.6 ml/min; Est GFR (African American) 144.2 ml/min; Est GFR (Non-African American) 124.4 ml/min; Globulin 2.3 gm/dl (2.5-4.0); Potassium 2.7 mmol/L (3.5-5.1); Total Protein 5.1 gm/dl (6.0-8.3)
[2022-08-26] MEDS ORDERED: MAGNESIUM SULFATE / D5W 1 GM/100 ML BAG IV ONE (18:47)
[2022-08-26] MEDS ORDERED: D5W AND NSS 1,000 ML IV SCH ×2 (19:00→23:05)
[2022-08-26] MEDS: POTASSIUM CHLORIDE / WTR 10 MEQ/100 ML PLCT IV SCH ×2 (19:16→20:18)
[2022-08-26] MEDS ORDERED: MoRPHine SULFATE 10 MG/ML CARP/VIAL IV STA (20:10)
--- NOTE | 2022-08-26 20:13 | CT Scan Report ---
CT SCAN OF THE ABDOMEN AND PELVIS WITH IV CONTRAST CLINICAL HISTORY: Generalized abdominal pain. COMPARISON STUDY: Abdominal CT dated 07/19/2015. TECHNIQUE: Following the IV administration of 88 cc of Optiray 350, CT scan of the abdomen and pelvi s is performed from the lung bases to the proximal femora. Images are reviewed in the axial, sagittal , and coronal planes. IV contrast was administered without complication. A dose lowering technique wa s utilized adhering to the principles of ALARA. CT DOSE: 246.84 mGy.cm FINDINGS: Lung bases: The heart is normal in size and without pericardial effusion. The lung bases are clear. Liver: The contrast-enhanced liver is enlarged, measuring 20.0 cm in length. The liver is otherwise n ormal in contour and attenuation. Fatty infiltration is seen adjacent to the falciform ligament. Ther e is no intrahepatic biliary ductal dilatation. The hepatic veins and portal veins are patent. There is mild periportal edema. Gallbladder: Unremarkable. Spleen: Normal in size and attenuation. Pancreas: Unremarkable. Adrenal glands: Unremarkable. Kidneys: The contrast enhanced kidneys are normal in size and without hydronephrosis. The kidneys enh ance symmetrically. Abdominal vasculature: The abdominal aorta is normal in course and caliber. Bowel: There is postoperative change from a subtotal colectomy with a rectal pouch formation and righ t lower quadrant ileostomy. No bowel obstruction is seen. Productive fatty change is seen surrounding the rectum. No thick-walled or hyperemic small bowel loops are suggested. There are bilateral fluid- containing tract seen extending from the perianal soft tissues to the dermal surface along the inferi or gluteal crease consistent with perianal fistulas. There is overlying dermal thickening. Mild infil tration suggests surrounding cellulitis. Peritoneum: There is no intraperitoneal free air or abdominal ascites. Lymphadenopathy: None. Pelvic viscera: The bladder wall appears circumferentially thickened. The uterus is normal as visuali zed. An involuting follicle is seen in the right ovary. A cystic lesion containing internal septation s is again seen in the left ovary. This measures approximately 12 x 8 x 10 cm and causes mass effect within the pelvis. There is a 1.7 cm enhancing mural nodule seen on image #297. Skeletal structures: No lytic or blastic lesions are seen. IMPRESSION: 1. There is postoperative change from subtotal colectomy with right lower quadrant ileostomy and rect al pouch formation. No bowel obstruction is identified. 2. No thick-walled or hyperemic small bowel is identified. 3. 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 These were also seen on the 2015 examination. Correlate cli nically for evidence of surrounding cellulitis. 4. A septated cystic left ovarian lesion linear with enhancing mural nodule is noted in the left adne xa. Ovarian neoplasm is the diagnosis of exclusion. Gynecological surgical assessment is advised. 5. The bladder wall appears circumferentially thickened. Correlate with clinical findings and urinaly sis. 6. Hepatomegaly. 7. Additional findings as above. ACT 112: Negative or not required by law. Electronically signed by: Olivier Camarena M.D. 08/26/2022 8:11 PM
[2022-08-26] MEDS ORDERED: cefTRIAXone SODIUM 2,000 MG/70 ML BAG IV STA (20:14)
--- NOTE | 2022-08-26 20:59 | History & Physical Report ---
Date of Service August 26, 2022 Assessment & Plan (1) Hypoglycemia: Plan: BSG on arrival=54, improving with infusion of D5+NSS -Fingerstick q 2 hours -Continue D5+NSS at 80mL/hr (2) Acute hypokalemia: Plan: K=2.7 -Potassium chloride elixir 80mEq -IVF + 10mEq KCl -Repeat chemistry in AM (3) Hypocalcemia: Plan: Low ionized calcium -2gm calcium -Repeat level in AM (4) Abdominal pain: Plan: Etiology most likely multifactorial. Patient with Crohns, Endometriosis and expanding ovarian mass -Consider Seat Maker Consultation -Morphine PRN based on pain scale -Zofran PRN -Reglan PRN (5) Crohn's disease of colon with fistula: Plan: Noted -Ileostomy management (6) Endometriosis: Plan: Noted (7) Lesion of ovary: Plan: Patient with expanding left ovarian mass, told that it was malignant based on imaging changes, rate of growth. She is supposed to be treated at [facility] -Seat Maker consultation -Consider referral to [facility] after acute issues are managed. History of Present Illness Chief Complaint: abdominal pain, early satiety Primary Care Provider: Salome Jesse Black is a 36yo female with history of Crohns disease s/p colectomy with ileostomy placement over 20 years ago, Endometriosis and RA presenting with abdominal pain and early satiety. Patient was recently found to have a large ovarian mass which has grown quite large on repeat imaging. She has been told that the mass is most likely an ovarian malignancy. She has been referred to [facility] and is to go early next month for resection (September 12). She reports diffuse abdominal pain and pressure after meals as well as early satiety. Lately she notes that if she eats a normal meal then she develops severe abdominal pain, nausea and vomiting. She has been trying to eat frequent small meals. Unfortunately, over the last 2-3 days her symptoms have progressed. Yesterday she tried to eat some [place] yogurt. She took 2 bites and promptly vomited. Throughout the rest of the day she took small sips of clear liquids - broth, juice and water - and was able to tolerate oral intake. This morning she tried again to eat some yogurt - and vomited after the second bite. She has had intermittent nausea since as well as a pulling sensation in her abdomen. She has felt intermittent subjective fevers, chills and shakes as well as dizziness. Denies chest pain, palpitations, cough, SOB, diarrhea. Upon arrival to the ER patient found to be hypoglycemic with BSG of 54. Also with hypokalemia with K=2.7. ER Course: Ceftriaxone 2gm, KCL 20mEq, Zofran 4mg IV x 2L, Morphine 6mg IV + 4mg IV, Magnesium sulfate 1gm, D5 + NSS x 2L Allergies Allergy/AdvReac Type Severity Reaction Status Date / Time aspirin Allergy Severe ANAPHYLAXIS Unverified 08/26/22 21:10 infliximab Allergy Severe ANAPHYLAXIS Verified 08/26/22 21:10 NSAIDS (Non-Steroidal Allergy Unknown THROAT Verified 08/26/22 21:10 Anti-Inflamma SWELLING Sulfa (Sulfonamide Allergy Unknown throat Unverified 08/26/22 21:10 Antibiotics) swelling bee venom protein (honey bee) Allergy Anaphylaxis Verified 08/26/22 21:11 azathioprine AdvReac Unknown MIGRAINE Verified 08/26/22 21:10 Home Medications Medication Instructions Recorded Confirmed Type acetaminophen 500 mg tablet 1,000 mg PO Q6H PRN Pain 08/26/22 08/26/22 History (Tylenol Extra Strength) buprenorphine HCl 8 mg sublingual 4 mg sublingual TID 08/26/22 08/26/22 History tablet cefpodoxime 200 mg tablet 200 mg PO BID 08/26/22 08/26/22 History cyanocobalamin (vitamin B-12) 1,000 mcg IM MO 08/26/22 08/26/22 History 1,000 mcg/mL injection solution epinephrine 0.3 mg/0.3 mL 0.3 mg IM Q4H PRN Allergic Reaction 08/26/22 08/26/22 History injection, auto-injector fluticasone fur. 200 mcg-umeclid 1 inh inhalation DAILY 08/26/22 08/26/22 History 62.5 mcg-vilant 25 mcg inhalat.powder (Trelegy Ellipta) magnesium oxide 400 mg (241.3 mg 400 mg PO DAILY 08/26/22 08/26/22 History magnesium) tablet potassium chloride 20 mEq 20 meq PO DAILY 08/26/22 08/26/22 History tablet,extended release(part/cryst) Past Med/Surg History Medical History (Updated 08/26/22 @ 22:40 by Danelle Cooper DO) Crohn disease Crohn's disease of colon with fistula Endometriosis History of MRSA infection "per records" Rheumatoid arthritis Surgical History H/O colectomy "total colectomy with ileoanal anastomosis 03/2006" Family History Other Blood clot in vein Social History Smoking Status: Current every day smoker Tobacco Type: Cigarettes Second Hand Exposure: No; Hx Alcohol Use: No Hx Substance Use: No Preferred Language: Swiss Communication Ability: Effective Reimbursement Representative Required: No Beliefs That Will Affect Care: None Current Living Situation: Family Feels Safe at Home: Yes Assistive Devices: None Review of Systems Review of Systems: All systems reviewed & are unremarkable except as noted in HPI & below Physical Exam Physical Exam: General: patient frail and cachectic in appearance, tearful, NAD, AA&O x 4 Skin: warm, dry, intact, no rashes or lesions HEENT: NC/AT, PERRL, EOMI, anicteric sclera, conjunctiva without injection, external ear normal to inspection and nontender, nares patent, dry mucus membranes, dentition intact, no oropharyngeal lesions, neck supple, trachea midline, no LAD, no thyromegaly, no JVD Heart: +S1/S2, regular, no m/r/g Lungs: equal air entry bilaterally, no rales/rhonchi/wheezes Abd: +BS, soft, diffusely tender without rebound/guarding or peritoneal signs, ileostomy in place Ext: warm, 2+ pulses in UE/LE bilaterally, no clubbing/cyanosis or edema Neuro: nonfocal, patient AA&O x 4, speech intact, no facial droop, moving all extremities on command with equal strength 5/5 Results & Data Results & Data ([facility]) Vital Signs (Past 12 Hours) Vital Signs Temp Pulse Resp BP Pulse Ox O2 Del Method 08/26/22 20:00 71 15 99/65 L 97 Room Air 08/26/22 19:30 67 17 109/74 97 08/26/22 19:01 55 L 15 81/60 L 100 Room Air 08/26/22 18:30 60 16 93/69 L 100 08/26/22 17:00 68 15 92/57 L 100 08/26/22 16:00 86 14 103/73 96 08/26/22 15:43 91 H 14 100/74 95 08/26/22 15:42 95 Room Air 08/26/22 15:03 37.0 C 112 H 18 111/74 98 Room Air Laboratory Results Laboratory Results WBC 4.78 K/ul (4.8-10.8) L 08/26/22 15:00 RBC 4.83 M/uL (3.93-5.22) 08/26/22 15:00 Hgb 12.7 g/dl (12.0-16.0) 08/26/22 15:00 POC Hgb 8.8 g/dl (12.0-16.0) L 08/26/22 17:22 Hct 39.5 % (34.1-44.9) 08/26/22 15:00 POC Hct 26 % (37-47) L 08/26/22 17:22 MCV 81.8 fL (80.0-100.0) 08/26/22 15:00 MCH 26.3 pg (25.0-34.0) 08/26/22 15:00 MCHC 32.2 g/dL (32.0-36.0) 08/26/22 15:00 RDW Std Deviation 51.6 fL (36.4-46.3) H 08/26/22 15:00 RDW Coeff of Quoc 17.4 % (11.5-14.5) H 08/26/22 15:00 Plt Count 176 K/uL (130-400) 08/26/22 15:00 MPV 11.0 fL (9.4-12.3) 08/26/22 15:00 Immature Gran % (Auto) 0.4 % 08/26/22 15:00 Neut % (Auto) 73.7 % 08/26/22 15:00 Lymph % (Auto) 18.0 % 08/26/22 15:00 [place] % (Auto) 7.3 % 08/26/22 15:00 Eos % (Auto) 0.4 % 08/26/22 15:00 Baso % (Auto) 0.2 % 08/26/22 15:00 Neut # (Auto) 3.52 K/uL (1.4-6.5) 08/26/22 15:00 Lymph # (Auto) 0.86 K/uL (1.2-3.4) L 08/26/22 15:00 [place] # (Auto) 0.35 K/uL (0.24-0.82) 08/26/22 15:00 Eos # (Auto) 0.02 K/uL (0-0.50) 08/26/22 15:00 Baso # (Auto) 0.01 K/uL (0-0.2) 08/26/22 15:00 Immature Gran # (Auto) 0.02 K/uL (0.00-0.02) 08/26/22 15:00 POC Sodium 145 mmol/L (135-144) H 08/26/22 17:22 Sodium 141 mmol/L (136-145) 08/26/22 17:15 POC Potassium 2.6 mmol/L (3.3-5.0) L 08/26/22 17:22 Potassium 2.7 mmol/L (3.5-5.1) L 08/26/22 17:15 POC Chloride 116 mmol/L (101-112) H 08/26/22 17:22 Chloride 119 mmol/L (98-107) H 08/26/22 17:15 Carbon Dioxide 17 mmol/L (21-32) L 08/26/22 17:15 POC Total CO2 16 mmol/L (24-31) L 08/26/22 17:22 Anion Gap 5 (3-11) 08/26/22 17:15 POC Anion Gap 17.0 mmol/L (16-25) 08/26/22 17:22 POC BUN 6 mg/dl (7-18) L 08/26/22 17:22 BUN 8 mg/dl (6-23) 08/26/22 17:15 Creatinine 0.48 mg/dl (0.6-1.2) L 08/26/22 17:15 POC Creatinine 0.5 mg/dl (0.6-1.3) L 08/26/22 17:22 Est Cr Clr Drug Dosing 106.6 ml/min 08/26/22 17:15 Est GFR ( Amer) 144.2 ml/min 08/26/22 17:15 Est GFR (Non-Af Amer) 124.4 ml/min 08/26/22 17:15 BUN/Creatinine Ratio 16.7 (10-20) 08/26/22 17:15 Glucose 58 mg/dl (70-99(Fasting)) L 08/26/22 17:15 POC Glucose 108 mg/dl (70-99) H 08/26/22 20:25 POC Glucose (other) 59 mg/dl (70-99) L* 08/26/22 17:22 Calcium 6.1 mg/dl (8.5-10.1) L 08/26/22 17:15 POC Ioniz Calcium Sa[place] 0.93 mmol/l (1.12-1.32) L 08/26/22 17:22 Magnesium 1.7 mg/dl (1.7-2.4) 08/26/22 17:15 Total Bilirubin 0.2 mg/dl (0.2-1.0) 08/26/22 17:15 AST 8 U/L (13-39) L 08/26/22 17:15 ALT 5 U/L (7-52) L 08/26/22 17:15 Alkaline Phosphatase 46 U/L (34-104) 08/26/22 17:15 Total Protein 5.1 gm/dl (6.0-8.3) L 08/26/22 17:15 Albumin 2.8 gm/dl (3.4-5.0) L 08/26/22 17:15 Globulin 2.3 gm/dl (2.5-4.0) L 08/26/22 17:15 Albumin/Globulin Ratio 1.2 (0.9-2) 08/26/22 17:15 Lipase 31 U/L (11-82) 08/26/22 17:15 Urine Color Dark Yellow 08/26/22 15:35 Urine Appearance Cloudy (Clear) A 08/26/22 15:35 Urine pH 7.0 (4.5-7.5) 08/26/22 15:35 Ur Specific Tell 1.029 (1.000-1.030) 08/26/22 15:35 Urine Protein 2+ (Negative) H 08/26/22 15:35 Urine Glucose (UA) Negative (Negative) 08/26/22 15:35 Urine Ketones Trace (Negative) H 08/26/22 15:35 Urine Blood 2+ (Negative) H 08/26/22 15:35 Urine Nitrite Negative (Negative) 08/26/22 15:35 Urine Bilirubin Negative (Negative) 08/26/22 15:35 Urine Urobilinogen Negative (Negative) 08/26/22 15:35 Ur Leukocyte Esterase 3+ (Negative) H 08/26/22 15:35 Urine WBC (Auto) >30 /hpf (0-5) H 08/26/22 15:35 Urine RBC (Auto) 10-30 /hpf (0-4) H 08/26/22 15:35 U Hyaline Cast (Auto) 1-5 /lpf (0-5) 08/26/22 15:35 U Epithel Cells (Auto) 10-20 /lpf (0-5) H 08/26/22 15:35 Urine Bacteria (Auto) Negative (Negative) 08/26/22 15:35 POC Ur Test NEG (NEG) 08/26/22 15:35 SARS-CoV-2, RNA, NAAT NEGATIVE (NEGATIVE) 08/26/22 19:27 Impressions Abdomen/Pelvis CT 08/26/22 16:24 CT SCAN OF THE ABDOMEN AND PELVIS WITH IV CONTRAST CLINICAL HISTORY: Generalized abdominal pain. COMPARISON STUDY: Abdominal CT dated 07/19/2015. TECHNIQUE: Following the IV administration of 88 cc of Optiray 350, CT scan of the abdomen and pelvis is performed from the lung bases to the proximal femora. Images are reviewed in the axial, sagittal, and coronal planes. IV contrast was administered without complication. A dose lowering technique was utilized adhering to the principles of ALARA. CT DOSE: 246.84 mGy.cm FINDINGS: Lung bases: The heart is normal in size and without pericardial effusion. The lung bases are clear. Liver: The contrast-enhanced liver is enlarged, measuring 20.0 cm in length. The liver is otherwise normal in contour and attenuation. Fatty infiltration is seen adjacent to the falciform ligament. There is no intrahepatic biliary ductal dilatation. The hepatic veins and portal veins are patent. There is mild periportal edema. Gallbladder: Unremarkable. Spleen: Normal in size and attenuation. Pancreas: Unremarkable. Adrenal glands: Unremarkable. Kidneys: The contrast enhanced kidneys are normal in size and without hydronephrosis. The kidneys enhance symmetrically. Abdominal vasculature: The abdominal aorta is normal in course and caliber. Bowel: There is postoperative change from a subtotal colectomy with a rectal pouch formation and right lower quadrant ileostomy. No bowel obstruction is seen. Productive fatty change is seen surrounding the rectum. No thick-walled or hyperemic small bowel loops are suggested. There are bilateral fluid-containing tract seen extending from the perianal soft tissues to the dermal surface along the inferior gluteal crease consistent with perianal fistulas. There is overlying dermal thickening. Mild infiltration suggests surrounding cellulitis. Peritoneum: There is no intraperitoneal free air or abdominal ascites. Lymphadenopathy: None. Pelvic viscera: The bladder wall appears circumferentially thickened. The uterus is normal as visualized. An involuting follicle is seen in the right ovary. A cystic lesion containing internal septations is again seen in the left ovary. This measures approximately 12 x 8 x 10 cm and causes mass effect within the pelvis. There is a 1.7 cm enhancing mural nodule seen on image #[id number]. Skeletal structures: No lytic or blastic lesions are seen. IMPRESSION: 1. There is postoperative change from subtotal colectomy with right lower quadrant ileostomy and rectal pouch formation. No bowel obstruction is identified. 2. No thick-walled or hyperemic small bowel is identified. 3. 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 These were also seen on the 2015 examination. Correlate clinically for evidence of surrounding cellulitis. 4. A septated cystic left ovarian lesion linear with enhancing mural nodule is noted in the left adnexa. Ovarian neoplasm is the diagnosis of exclusion. Gynecological surgical assessment is advised. 5. The bladder wall appears circumferentially thickened. Correlate with clinical findings and urinalysis. 6. Hepatomegaly. 7. Additional findings as above. ACT 112: Negative or not required by law. Electronically signed by: Olivier Camarena M.D. 08/26/2022 8:11 PM Code Status & VTE Plan VTE Prophylaxis Plan VTE Prophylaxis will be ordered: Yes PG Care Time/CCT Total # of Minutes Spent Total Time Spent with Patient: Total time spent is greater than 50% in coordination of care (as documented) at patient's floor/unit and/or counseling patient: Coding Level of Care Code 99092 Initial Inpt Care Lvl 3 Diagnoses Hypoglycemia E16.2 Acute hypokalemia E87.6 Hypocalcemia E83.51 Abdominal pain R10.9 Crohn's disease of colon with fistula K50.113 Endometriosis N80.9 Lesion of ovary N83.9
[2022-08-26] MEDS ORDERED: METOCLOPRAMIDE HCL INJ 5 MG/ML 2 ML VIAL IV PRN (23:05)
[2022-08-26] MEDS ORDERED: GLUCOSE 40% GEL 15 GM TUBE PO PRN (23:05)
[2022-08-26] MEDS ORDERED: ONDANSETRON INJ 2 MG/ML 2 ML VIAL IV PRN (23:05)
[2022-08-26] MEDS ORDERED: GLUCOSE 10 TAB/TUBE PO PRN (23:05)
[2022-08-26] MEDS ORDERED: CARBOHYDRATES FOR HYPOGLYCEMIA PO PRN (23:05)
[2022-08-26] MEDS ORDERED: GLUCAGON FOR INJ 1 MG VIAL SQ PRN (23:05)
[2022-08-26] MEDS ORDERED: STAT IV STA (23:05)
[2022-08-26] MEDS ORDERED: ACETAMINOPHEN 325 MG TAB PO PRN (23:05)
[2022-08-26] MEDS ORDERED: DEXTROSE 50% 50 ML SYRINGE IV PRN (23:05)
[2022-08-26] MEDS ORDERED: CALCIUM GLUCONATE 10% 2,000 MG in DEXTROSE 5% 50 ML IV ONE (23:15)
[2022-08-26] MEDS ORDERED: POTASSIUM CHLORIDE 10 MEQ in D5W AND NSS 1,000 ML IV SCH (23:30)
[2022-08-26] MEDS: MoRPHine SULFATE 4 MG/ML 1 ML CARP\\VIAL IV PRN (23:32)
[2022-08-26] MEDS: POTASSIUM CHLORIDE 20 MEQ/15 ML UDC PO SCH (23:57)
[2022-08-26] MEDS: ENOXAPARIN INJ 30 MG/0.3 ML SYR SQ SCH (23:57)
--- NOTE | 2022-08-27 00:17 | OB/GYN Consultation ---
Date of Consultation August 26, 2022 Assessment & Plan (1) Lesion of ovary: -hard to say exactly how much of pt's symptoms are mass related as I do not have prior records to compare to but pt reports this is significantly larger than it was when first dx over the summer and strongly desires to get to [facility] for mass removal. Pt was able to be fairly active with her crohn's prior to the apparent rapid development and growth of this mass, so suspect a large part of her symptoms are mass related -Would not recommend acute surgical intervention of the mass at [facility] due to concern for malignancy and extent of pt's surgical history. Could consider tumor markers (Ca125, CEA, CA19-9) however pt is not sure if these were done prior and don't know that they would change her clinical course at this point given her plan for procedure at [facility]. Hard to say accuracy of these as well given the pt's GI history and lack of specificity associated with these markers. -Given the rapidity with which her pain has worsened and reported change in mass size, once the pt is medically stable from her other admitting concerns, would suggest either transfer to [facility] from [facility] for surgical management of this mass or more urgent outpatient follow up with [facility] arranged prior to discharge if unable to transfer. Pt reports that she would ideally be transferred to [facility] from [facility]. -Ample time was given to pt for questions, answered to apparent satisfaction. Please let taximeter repairer team know if any further questions arise History of Present Illness Reason for Consultation: Ovarian mass Requesting Physician: Dr. Cooper Attending Physician: Danelle Cooper, History of Present Illness 36 yo with history of crohn's s/p multiple bowel resections with ileostomy in place, endometriosis and ovarian mass is admitted to medicine team due to abdominal pain, early satiety and limited oral intake. Pt has a history of Crohn's s/p multiple bowel resections and surgical clean-outs with ileostomy in place. Reports she has had some surgeries where they examined her pelvis and found spots of endometriosis as well. Pt normally sees Dr. Szymanski's office for gynecology and I do not have any records. Thinks that she was first told about the mass when she was seen in the ER in [place] over the summer. She presented to the ER with chest pains and discharged, but then later told that she had had a heart attack by her outpatient physicians. At some point during this time a CT scan of her abdomen/pelvis was performed and she was told that she had an ovarian mass the size of a small grapefruit. She reports Dr. Szymanski's office consulted another machine tester who was hesitant to remove it and recommended referral elsewhere for surgical consult. She does not recall being told of lab workup/tumor markers She believes this was being arranged however has had worsening abdominal pain, pressure, and early satiety with meals over the last few months. Got to the point that she would vomit anything she tried to eat and so barely had any PO intake. Saw her PCP who encouraged her to try to eat small frequent meals and she has been able to do this. However, despite this, has still lost over 20lbs in the last 6 months unintentionally. notes that even with her Crohn's, she was always able to run and hold her nutrition fairly well. She notes increasing difficulty to maintain her h/h, iron and B12 levels over last few months. Postprandial pain and pressure significantly worsened last week and so she presented for evaluation at [place] again where she was told that the size of the mass had doubled to tripled in size and that they were almost certain of malignancy. Her PCP then attempted to arrange urgent referral to [facility] [place] however pt wanted to try to wait a week to get her house arranged but pain worsened today and so presented here. She says she is scheduled with them september 12. Imaging in the ER notes a large L ovarian cystic lesion measuring 12 x 8 x 10cm with internal septations and enhancing mural nodule. The lesion is causing mass effect within the pelvis She notes worsened early satiety as well as pain with eating, weight loss as above. She notes newly developed thyroid disease and the difficulty with iron and B12 in the last few months. Has had increased utis that she thinks are related to the mass pushing on her bladder. She reports that her ostomy output has actually remained stable throughout all of this. 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 Hx: , hx Reports a hx abnl paps Denies hx STIs Allergies Allergy/AdvReac Type Severity Reaction Status Date / Time aspirin Allergy Severe ANAPHYLAXIS Unverified 08/26/22 21:10 infliximab Allergy Severe ANAPHYLAXIS Verified 08/26/22 21:10 NSAIDS (Non-Steroidal Allergy Unknown THROAT Verified 08/26/22 21:10 Anti-Inflamma SWELLING Sulfa (Sulfonamide Allergy Unknown throat Unverified 08/26/22 21:10 Antibiotics) swelling bee venom protein (honey bee) Allergy Anaphylaxis Verified 08/26/22 21:11 azathioprine AdvReac Unknown MIGRAINE Verified 08/26/22 21:10 Home Medications Medication Instructions Recorded Confirmed Type acetaminophen 500 mg tablet 1,000 mg PO Q6H PRN Pain 08/26/22 08/26/22 History (Tylenol Extra Strength) buprenorphine HCl 8 mg sublingual 4 mg sublingual TID 08/26/22 08/26/22 History tablet cefpodoxime 200 mg tablet 200 mg PO BID 08/26/22 08/26/22 History cyanocobalamin (vitamin B-12) 1,000 mcg IM MO 08/26/22 08/26/22 History 1,000 mcg/mL injection solution epinephrine 0.3 mg/0.3 mL 0.3 mg IM Q4H PRN Allergic Reaction 08/26/22 08/26/22 History injection, auto-injector fluticasone fur. 200 mcg-umeclid 1 inh inhalation DAILY 08/26/22 08/26/22 History 62.5 mcg-vilant 25 mcg inhalat.powder (Trelegy Ellipta) magnesium oxide 400 mg (241.3 mg 400 mg PO DAILY 08/26/22 08/26/22 History magnesium) tablet potassium chloride 20 mEq 20 meq PO DAILY 08/26/22 08/26/22 History tablet,extended release(part/cryst) Patient History Medical History (Updated 08/26/22 @ 22:40 by Danelle Cooper DO) Crohn disease Crohn's disease of colon with fistula Endometriosis History of MRSA infection "per records" Rheumatoid arthritis Surgical History (Updated 08/27/22 @ 00:03 by Ebonie Rosales MD) H/O colectomy "total colectomy with ileoanal anastomosis 03/2006" H/O resection of large bowel multiple resections and clean outs History of rectal surgery "hundreds of fistula surgeries" S/P exploratory laparotomy endometriosis Family History Other Blood clot in vein Social History Smoking Status: Current every day smoker Tobacco Type: Cigarettes Second Hand Exposure: No; Hx Alcohol Use: No Hx Substance Use: No Preferred Language: Monegasque Communication Ability: Effective Stone Carriage Operator Required: No Beliefs That Will Affect Care: None Current Living Situation: Family Feels Safe at Home: Yes Assistive Devices: None Review of Systems Review of Systems: Neg except as noted in HPI Physical Exam Respiratory: normal respiratory effort; no respiratory distress and no labored breathing Gastrointestinal (Abdomen): Abd soft, ileostomy noted in RLQ. Midline vertical incision is noted, well healed -Minimal tenderness in RLQ underneath ostomy bag. LLQ has a fullness that I suspect to be the mass, moderately tender. No rebound or guarding Results & Data ([facility]) Vital Signs (Past 12 Hours) Vital Signs Temp Pulse Resp BP Pulse Ox O2 Del Method 08/26/22 22:00 74 14 106/77 98 Room Air 08/26/22 21:30 80 22 112/72 96 Room Air 08/26/22 22:07 Room Air 08/26/22 21:00 75 19 107/75 98 Room Air 08/26/22 20:30 79 17 113/72 96 Room Air 08/26/22 20:00 71 15 99/65 L 97 Room Air 08/26/22 19:30 67 17 109/74 97 08/26/22 19:01 55 L 15 81/60 L 100 Room Air 08/26/22 18:30 60 16 93/69 L 100 08/26/22 17:00 68 15 92/57 L 100 08/26/22 16:00 86 14 103/73 96 08/26/22 15:43 91 H 14 100/74 95 08/26/22 15:42 95 Room Air 08/26/22 15:03 98.6 F 112 H 18 111/74 98 Room Air Laboratory Results 08/26/22 08/26/22 08/26/22 Range/Units 23:47 20:25 19:27 WBC (4.8-10.8) K/ul RBC (3.93-5.22) M/uL Hgb (12.0-16.0) g/dl POC Hgb (12.0-16.0) g/dl Hct (34.1-44.9) % POC Hct (37-47) % MCV (80.0-100.0) fL MCH (25.0-34.0) pg MCHC (32.0-36.0) g/dL RDW Std Deviation (36.4-46.3) fL RDW Coeff of Quoc (11.5-14.5) % Plt Count (130-400) K/uL MPV (9.4-12.3) fL Immature Gran % (Auto) % Neut % (Auto) % Lymph % (Auto) % Wise % (Auto) % Eos % (Auto) % Baso % (Auto) % Neut # (Auto) (1.4-6.5) K/uL Lymph # (Auto) (1.2-3.4) K/uL Wise # (Auto) (0.24-0.82) K/uL Eos # (Auto) (0-0.50) K/uL Baso # (Auto) (0-0.2) K/uL Immature Gran # (Auto) (0.00-0.02) K/uL POC Sodium (135-144) mmol/L Sodium POC Potassium (3.3-5.0) mmol/L Potassium POC Chloride (101-112) mmol/L Chloride Carbon Dioxide POC Total CO2 (24-31) mmol/L Anion Gap POC Anion Gap (16-25) mmol/L POC BUN (7-18) mg/dl BUN Creatinine POC Creatinine (0.6-1.3) mg/dl Est Cr Clr Drug Dosing Est GFR ( Amer) Est GFR (Non-Af Amer) BUN/Creatinine Ratio Glucose POC Glucose 87 108 H (70-99) mg/dl POC Glucose (other) (70-99) mg/dl Calcium POC Ioniz Calcium [place] (1.12-1.32) mmol/l Phosphorus Magnesium (1.7-2.4) mg/dl Total Bilirubin AST ALT Alkaline Phosphatase Total Protein Albumin Globulin Albumin/Globulin Ratio Lipase Urine Color Urine Appearance (Clear) Urine pH (4.5-7.5) Ur Specific [place] (1.000-1.030) Urine Protein (Negative) Urine Glucose (UA) (Negative) Urine Ketones (Negative) Urine Blood (Negative) Urine Nitrite (Negative) Urine Bilirubin (Negative) Urine Urobilinogen (Negative) Ur Leukocyte Esterase (Negative) Urine WBC (Auto) (0-5) /hpf Urine RBC (Auto) (0-4) /hpf U Hyaline Cast (Auto) (0-5) /lpf U Epithel Cells (Auto) (0-5) /lpf Urine Bacteria (Auto) (Negative) POC Ur Test (NEG) SARS-CoV-2, RNA, NAAT NEGATIVE (NEGATIVE) 08/26/22 08/26/22 08/26/22 Range/Units 17:22 17:15 17:15 WBC (4.8-10.8) K/ul RBC (3.93-5.22) M/uL Hgb (12.0-16.0) g/dl POC Hgb 8.8 L (12.0-16.0) g/dl Hct (34.1-44.9) % POC Hct 26 L (37-47) % MCV (80.0-100.0) fL MCH (25.0-34.0) pg MCHC (32.0-36.0) g/dL RDW Std Deviation (36.4-46.3) fL RDW Coeff of Quoc (11.5-14.5) % Plt Count (130-400) K/uL MPV (9.4-12.3) fL Immature Gran % (Auto) % Neut % (Auto) % Lymph % (Auto) % Wise % (Auto) % Eos % (Auto) % Baso % (Auto) % Neut # (Auto) (1.4-6.5) K/uL Lymph # (Auto) (1.2-3.4) K/uL Wise # (Auto) (0.24-0.82) K/uL Eos # (Auto) (0-0.50) K/uL Baso # (Auto) (0-0.2) K/uL Immature Gran # (Auto) (0.00-0.02) K/uL POC Sodium 145 H (135-144) mmol/L Sodium POC Potassium 2.6 L (3.3-5.0) mmol/L Potassium POC Chloride 116 H (101-112) mmol/L Chloride Carbon Dioxide POC Total CO2 16 L (24-31) mmol/L Anion Gap POC Anion Gap 17.0 (16-25) mmol/L POC BUN 6 L (7-18) mg/dl BUN Creatinine POC Creatinine 0.5 L (0.6-1.3) mg/dl Est Cr Clr Drug Dosing Est GFR ( Amer) Est GFR (Non-Af Amer) BUN/Creatinine Ratio Glucose POC Glucose (70-99) mg/dl POC Glucose (other) 59 L* (70-99) mg/dl Calcium POC Ioniz Calcium [place] 0.93 L (1.12-1.32) mmol/l Phosphorus Pending Magnesium 1.7 (1.7-2.4) mg/dl Total Bilirubin AST ALT Alkaline Phosphatase Total Protein Albumin Globulin Albumin/Globulin Ratio Lipase Urine Color Urine Appearance (Clear) Urine pH (4.5-7.5) Ur Specific [place] (1.000-1.030) Urine Protein (Negative) Urine Glucose (UA) (Negative) Urine Ketones (Negative) Urine Blood (Negative) Urine Nitrite (Negative) Urine Bilirubin (Negative) Urine Urobilinogen (Negative) Ur Leukocyte Esterase (Negative) Urine WBC (Auto) (0-5) /hpf Urine RBC (Auto) (0-4) /hpf U Hyaline Cast (Auto) (0-5) /lpf U Epithel Cells (Auto) (0-5) /lpf Urine Bacteria (Auto) (Negative) POC Ur Test (NEG) SARS-CoV-2, RNA, NAAT (NEGATIVE) 08/26/22 08/26/22 08/26/22 Range/Units 17:15 15:35 15:35 WBC (4.8-10.8) K/ul RBC (3.93-5.22) M/uL Hgb (12.0-16.0) g/dl POC Hgb (12.0-16.0) g/dl Hct (34.1-44.9) % POC Hct (37-47) % MCV (80.0-100.0) fL MCH (25.0-34.0) pg MCHC (32.0-36.0) g/dL RDW Std Deviation (36.4-46.3) fL RDW Coeff of Quoc (11.5-14.5) % Plt Count (130-400) K/uL MPV (9.4-12.3) fL Immature Gran % (Auto) % Neut % (Auto) % Lymph % (Auto) % Wise % (Auto) % Eos % (Auto) % Baso % (Auto) % Neut # (Auto) (1.4-6.5) K/uL Lymph # (Auto) (1.2-3.4) K/uL Wise # (Auto) (0.24-0.82) K/uL Eos # (Auto) (0-0.50) K/uL Baso # (Auto) (0-0.2) K/uL Immature Gran # (Auto) (0.00-0.02) K/uL POC Sodium (135-144) mmol/L Sodium 141 POC Potassium (3.3-5.0) mmol/L Potassium 2.7 L POC Chloride (101-112) mmol/L Chloride 119 H Carbon Dioxide 17 L POC Total CO2 (24-31) mmol/L Anion Gap 5 POC Anion Gap (16-25) mmol/L POC BUN (7-18) mg/dl BUN 8 Creatinine 0.48 L POC Creatinine (0.6-1.3) mg/dl Est Cr Clr Drug Dosing 106.6 Est GFR ( Amer) 144.2 Est GFR (Non-Af Amer) 124.4 BUN/Creatinine Ratio 16.7 Glucose 58 L POC Glucose (70-99) mg/dl POC Glucose (other) (70-99) mg/dl Calcium 6.1 L POC Ioniz Calcium [place] (1.12-1.32) mmol/l Phosphorus Magnesium (1.7-2.4) mg/dl Total Bilirubin 0.2 AST 8 L ALT 5 L Alkaline Phosphatase 46 Total Protein 5.1 L Albumin 2.8 L Globulin 2.3 L Albumin/Globulin Ratio 1.2 Lipase 31 Urine Color Dark Yellow Urine Appearance Cloudy A (Clear) Urine pH 7.0 (4.5-7.5) Ur Specific [place] 1.029 (1.000-1.030) Urine Protein 2+ H (Negative) Urine Glucose (UA) Negative (Negative) Urine Ketones Trace H (Negative) Urine Blood 2+ H (Negative) Urine Nitrite Negative (Negative) Urine Bilirubin Negative (Negative) Urine Urobilinogen Negative (Negative) Ur Leukocyte Esterase 3+ H (Negative) Urine WBC (Auto) >30 H (0-5) /hpf Urine RBC (Auto) 10-30 H (0-4) /hpf U Hyaline Cast (Auto) 1-5 (0-5) /lpf U Epithel Cells (Auto) 10-20 H (0-5) /lpf Urine Bacteria (Auto) Negative (Negative) POC Ur Test NEG (NEG) SARS-CoV-2, RNA, NAAT (NEGATIVE) 08/26/22 08/26/22 Range/Units 15:00 15:00 WBC 4.78 L (4.8-10.8) K/ul RBC 4.83 (3.93-5.22) M/uL Hgb 12.7 (12.0-16.0) g/dl POC Hgb (12.0-16.0) g/dl Hct 39.5 (34.1-44.9) % POC Hct (37-47) % MCV 81.8 (80.0-100.0) fL MCH 26.3 (25.0-34.0) pg MCHC 32.2 (32.0-36.0) g/dL RDW Std Deviation 51.6 H (36.4-46.3) fL RDW Coeff of [place] 17.4 H (11.5-14.5) % Plt Count 176 (130-400) K/uL MPV 11.0 (9.4-12.3) fL Immature Gran % (Auto) 0.4 % Neut % (Auto) 73.7 % Lymph % (Auto) 18.0 % Wise % (Auto) 7.3 % Eos % (Auto) 0.4 % Baso % (Auto) 0.2 % Neut # (Auto) 3.52 (1.4-6.5) K/uL Lymph # (Auto) 0.86 L (1.2-3.4) K/uL Wise # (Auto) 0.35 (0.24-0.82) K/uL Eos # (Auto) 0.02 (0-0.50) K/uL Baso # (Auto) 0.01 (0-0.2) K/uL Immature Gran # (Auto) 0.02 (0.00-0.02) K/uL POC Sodium (135-144) mmol/L Sodium Cancelled POC Potassium (3.3-5.0) mmol/L Potassium Cancelled POC Chloride (101-112) mmol/L Chloride Cancelled Carbon Dioxide Cancelled POC Total CO2 (24-31) mmol/L Anion Gap Cancelled POC Anion Gap (16-25) mmol/L POC BUN (7-18) mg/dl BUN Cancelled Creatinine Cancelled POC Creatinine (0.6-1.3) mg/dl Est Cr Clr Drug Dosing Cancelled Est GFR ( Amer) Cancelled Est GFR (Non-Af Amer) Cancelled BUN/Creatinine Ratio Cancelled Glucose Cancelled POC Glucose (70-99) mg/dl POC Glucose (other) (70-99) mg/dl Calcium Cancelled POC Ioniz Calcium [place] (1.12-1.32) mmol/l Phosphorus Magnesium (1.7-2.4) mg/dl Total Bilirubin Cancelled AST Cancelled ALT Cancelled Alkaline Phosphatase Cancelled Total Protein Cancelled Albumin Cancelled Globulin Cancelled Albumin/Globulin Ratio Cancelled Lipase Cancelled Urine Color Urine Appearance (Clear) Urine pH (4.5-7.5) Ur Specific [place] (1.000-1.030) Urine Protein (Negative) Urine Glucose (UA) (Negative) Urine Ketones (Negative) Urine Blood (Negative) Urine Nitrite (Negative) Urine Bilirubin (Negative) Urine Urobilinogen (Negative) Ur Leukocyte Esterase (Negative) Urine WBC (Auto) (0-5) /hpf Urine RBC (Auto) (0-4) /hpf U Hyaline Cast (Auto) (0-5) /lpf U Epithel Cells (Auto) (0-5) /lpf Urine Bacteria (Auto) (Negative) POC Ur Test (NEG) SARS-CoV-2, RNA, NAAT (NEGATIVE) Diagnostic Findings FINDINGS: Lung bases: The heart is normal in size and without pericardial effusion. The lung bases are clear. Liver: The contrast-enhanced liver is enlarged, measuring 20.0 cm in length. The liver is otherwise normal in contour and attenuation. Fatty infiltration is seen adjacent to the falciform ligament. There is no intrahepatic biliary ductal dilatation. The hepatic veins and portal veins are patent. There is mild periportal edema. Gallbladder: Unremarkable. Spleen: Normal in size and attenuation. Pancreas: Unremarkable. Adrenal glands: Unremarkable. Kidneys: The contrast enhanced kidneys are normal in size and without hydronephrosis. The kidneys enhance symmetrically. Abdominal vasculature: The abdominal aorta is normal in course and caliber. Bowel: There is postoperative change from a subtotal colectomy with a rectal pouch formation and right lower quadrant ileostomy. No bowel obstruction is seen. Productive fatty change is seen surrounding the rectum. No thick-walled or hyperemic small bowel loops are suggested. There are bilateral fluid-containing tract seen extending from the perianal soft tissues to the dermal surface along the inferior gluteal crease consistent with perianal fistulas. There is overlying dermal thickening. Mild infiltration suggests surrounding cellulitis. Peritoneum: There is no intraperitoneal free air or abdominal ascites. Lymphadenopathy: None. Pelvic viscera: The bladder wall appears circumferentially thickened. The uterus is normal as visualized. An involuting follicle is seen in the right ovary. A cystic lesion containing internal septations is again seen in the left ovary. This measures approximately 12 x 8 x 10 cm and causes mass effect within the pelvis. There is a 1.7 cm enhancing mural nodule seen on image #297. Skeletal structures: No lytic or blastic lesions are seen. IMPRESSION: 1. There is postoperative change from subtotal colectomy with right lower quadrant ileostomy and rectal pouch formation. No bowel obstruction is identified. 2. No thick-walled or hyperemic small bowel is identified. 3. 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 These were also seen on the 2015 examination. Correlate clinically for evidence of surrounding cellulitis. 4. A septated cystic left ovarian lesion linear with enhancing mural nodule is noted in the left adnexa. Ovarian neoplasm is the diagnosis of exclusion. Gynecological surgical assessment is advised. 5. The bladder wall appears circumferentially thickened. Correlate with clinical findings and urinalysis. 6. Hepatomegaly. 7. Additional findings as above. ACT 112: Negative or not required by law. PG Care Time/CCT Total # of Minutes Spent Total Time Spent with Patient: Total time spent is greater than 50% in coordination of care (as documented) at patient's floor/unit and/or counseling patient: Coding Level of Care Code 32818 Inpt Consult Level 4 Diagnoses Lesion of ovary N83.9
[2022-08-27] MEDS: POTASSIUM CHLORIDE 20 MEQ/15 ML UDC PO SCH (02:33)
[2022-08-27] MEDS: MoRPHine SULFATE 2 MG/ML CARP IV PRN (02:37)
[2022-08-27 06:44] LABS: Hematocrit (blood only) 31.9 % (34.1-44.9); Hemoglobin 10.1 g/dl (12.0-16.0); Mean Corpuscular Hemoglobin 26.4 pg (25.0-34.0); Mean Corpuscular Hgb Conc 31.7 g/dL (32.0-36.0); Mean Corpuscular Volume 83.3 fL (80.0-100.0); Mean Platelet Volume 10.3 fL (9.4-12.3); Platelet Count 219 K/uL (130-400); RDW Coefficient of Variation 17.2 % (11.5-14.5); RDW Standard Deviation 52.2 fL (36.4-46.3); Red Blood Count 3.83 M/uL (3.93-5.22); White Blood Count 5.42 K/ul (4.8-10.8)
[2022-08-27] MEDS: buprenorphine HCL 2 MG SUBL SL SCH ×3 (08:07→21:04)
[2022-08-27] MEDS: MoRPHine SULFATE 4 MG/ML 1 ML CARP\\VIAL IV PRN ×4 (08:08→21:55)
[2022-08-27 08:20] LABS: BUN Creatinine Ratio 8.2 (10-20); Calcium 8.3 mg/dl (8.5-10.1); Creatinine Clr Calc Pharmacy 84.5 ml/min; Est GFR (African American) 133.3 ml/min; Potassium 4.2 mmol/L (3.5-5.1)
--- NOTE | 2022-08-27 14:39 | Hospitalist Progress Note ---
Date of Service August 27, 2022 Assessment & Plan (1) Abdominal pain: Plan: Etiology most likely multifactorial. Patient with Crohn's, endometriosis, and expanding ovarian mass. - Business Systems Developer consulted -> Advise that patient may have mass effect and recommend transfer to [facility]. However, patient with continued ostomy output, and in the late morning, she felt much better. She did not want acute transfer to [facility] and preferred to attempt to restart feeding and see if she could discharge home with follow-up as planned. She is capable of making this decision, and in this case, I agree in that she is in no distress, eating well, pain is under control. With clinical change, I do not see reason for urgent transfer. - Pain control PRN - Buprenorphine 4 mg SL TID standing for her hx of opiate use (2) Lesion of ovary: Plan: Patient with expanding left ovarian mass, told that it was malignant based on imaging changes, rate of growth. She is supposed to be treated at [place]. - Business Systems Developer consultation as below (3) Hypoglycemia: Plan: BSG on arrival=54, improved with infusion of D5+NSS. - Due to poor PO intake; now will liberalize diet and see how she does. (4) Acute hypokalemia: Plan: K=2.7. S/p potassium chloride elixir & IV repletion. - Monitor (5) Hypocalcemia: Plan: Low ionized calcium. - Replete PRN (6) Crohn's disease of colon with fistula: Plan: Noted. - Ileostomy management (7) Endometriosis: Plan: Noted Plan DVT ppx: Lovenox 30 mg HS Admission and Anticipated Discharge Date Admission Date: August 26, 2022 Subjective Doing well today. No major issues. Eating well and feeling more of an appetite. Reports no fevers/chills, chest pain, shortness of breath, abdominal pain, nausea, or vomiting. Physical Exam Constitutional: + thin and + frail appearing Eyes: EOM intact bilaterally; no conjunctival abnormality ENMT: external ear and nose normal, oropharynx normal Neck: trachea midline, no thyromegaly normal visual inspection Respiratory: normal respiratory effort, lungs clear to auscultation no respiratory distress Cardiovascular: RRR, no murmur, no edema Gastrointestinal (Abdomen): Inspection/Auscultation: abdomen normal to inspection; abdomen not distended Musculoskeletal: no cyanosis or clubbing, extremities motor strength 5/5 Skin: no rashes, warm and dry Neurologic: moves all extremities and awake Psychiatric: Orientation: alert, oriented to person and cooperative Results & Data Results & Data ([facility]) Vital Signs (Past 12 Hours) Vital Signs Temp Pulse Pulse Resp BP Pulse Ox O2 Del Method 08/27/22 11:17 36.8 C 61 16 107/67 95 Room Air 08/27/22 07:25 52 L 08/27/22 06:43 36.8 C 60 18 95/62 L 95 Room Air 08/27/22 04:39 36.8 C 62 18 98/63 L 97 Room Air 08/27/22 03:33 68 PG Care Time/CCT Total # of Minutes Spent Total Time Spent with Patient: Total time spent is greater than 50% in coordination of care (as documented) at patient's floor/unit and/or counseling patient: Coding Level of Care Code 24820 Subseq Hosp Care Lvl 2 Diagnoses Abdominal pain R10.9 Lesion of ovary N83.9 Hypoglycemia E16.2 Acute hypokalemia E87.6 Hypocalcemia E83.51 Crohn's disease of colon with fistula K50.113 Endometriosis N80.9
[2022-08-27] MEDS: ENOXAPARIN INJ 30 MG/0.3 ML SYR SQ SCH (21:05)
[2022-08-28] MEDS: MoRPHine SULFATE 2 MG/ML CARP IV PRN (07:42)
[2022-08-28] MEDS: buprenorphine HCL 2 MG SUBL SL SCH (07:42)
[2022-08-28 07:52] LABS: Hematocrit (blood only) 34.6 % (34.1-44.9); Hemoglobin 11.1 g/dl (12.0-16.0); Mean Corpuscular Hemoglobin 26.2 pg (25.0-34.0); Mean Corpuscular Hgb Conc 32.1 g/dL (32.0-36.0); Mean Corpuscular Volume 81.8 fL (80.0-100.0); Mean Platelet Volume 10.1 fL (9.4-12.3); Platelet Count 226 K/uL (130-400); RDW Coefficient of Variation 17.2 % (11.5-14.5); RDW Standard Deviation 50.7 fL (36.4-46.3); Red Blood Count 4.23 M/uL (3.93-5.22); White Blood Count 5.71 K/ul (4.8-10.8)
[2022-08-28 08:36] LABS: Albumin Globulin Ratio 1.2 (0.9-2); Albumin Level 3.6 gm/dl (3.4-5.0); BUN Creatinine Ratio 16.7 (10-20); Bilirubin,Total 0.2 mg/dl (0.2-1.0); Calcium 8.9 mg/dl (8.5-10.1); Creatinine Clr Calc Pharmacy 71.6 ml/min; Est GFR (African American) 123.1 ml/min; Est GFR (Non-African American) 106.2 ml/min; Magnesium 1.9 mg/dl (1.7-2.4); Phosphorus 4.7 mg/dl (2.5-4.9); Potassium 3.9 mmol/L (3.5-5.1); Total Protein 6.6 gm/dl (6.0-8.3)
--- NOTE | 2022-08-28 14:44 | Discharge Summary ---
Date of Service August 28, 2022 Admission HPI Per Admitting Provider Elsie Black is a 36yo female with history of Crohns disease s/p colectomy with ileostomy placement over 20 years ago, Endometriosis and RA presenting with abdominal pain and early satiety. Patient was recently found to have a large ovarian mass which has grown quite large on repeat imaging. She has been told that the mass is most likely an ovarian malignancy. She has been referred to [facility] and is to go early next month for resection (September 12). She reports diffuse abdominal pain and pressure after meals as well as early satiety. Lately she notes that if she eats a normal meal then she develops sev ere abdominal pain, nausea and vomiting. She has been trying to eat frequent small meals. Unfortunately, over the last 2-3 days her symptoms have progressed. Yesterday she tried to eat some Maltese yogurt. She took 2 bites and promptly vomited. Throughout the rest of the day she took small sips of clear liquids - broth, juice and water - and was able to tolerate oral intake. This morning she tried again to eat some yogurt - and vomited after the second bite. She has had intermittent nausea since as well as a pulling sensation in her abdomen. She has felt intermittent subjective fevers, chills and shakes as well as dizziness. Denies chest pain, palpitations, cough, SOB, diarrhea. Upon arrival to the ER patient found to be hypoglycemic with BSG of 54. Also with hypokalemia with K=2.7. ER Course: Ceftriaxone 2gm, KCL 20mEq, Zofran 4mg IV x 2L, Morphine 6mg IV + 4mg IV, Magnesium sulfate 1gm, D5 + NSS x 2L Principal Diagnosis Large ovarian mass causing nausea and vomiting Discharge Exam Constitutional + thin and + frail appearing Eyes EOM intact bilaterally; no conjunctival abnormality ENMT external ear and nose normal, oropharynx normal Neck trachea midline, no thyromegaly normal visual inspection Respiratory normal respiratory effort, lungs clear to auscultation no respiratory distress Cardiovascular RRR, no murmur, no edema Gastrointestinal (Abdomen) Inspection/Auscultation: abdomen normal to inspection; abdomen not distended Musculoskeletal no cyanosis or clubbing, extremities motor strength 5/5 Skin no rashes, warm and dry Neurologic moves all extremities and awake Psychiatric Orientation: alert, oriented to person and cooperative Discharge Data Allergies Allergy/AdvReac Type Severity Reaction Status Date / Time aspirin Allergy Severe ANAPHYLAXIS Unverified 08/26/22 21:10 infliximab Allergy Severe ANAPHYLAXIS Verified 08/26/22 21:10 NSAIDS (Non-Steroidal Allergy Unknown THROAT Verified 08/26/22 21:10 Anti-Inflamma SWELLING Sulfa (Sulfonamide Allergy Unknown throat Unverified 08/26/22 21:10 Antibiotics) swelling bee venom protein (honey bee) Allergy Anaphylaxis Verified 08/26/22 21:11 azathioprine AdvReac Unknown MIGRAINE Verified 08/26/22 21:10 Consultations 08/26/22 20:14 ED Decision to Admit Stat 08/26/22 22:47 Consult Gynecology Routine Ordered Studies 08/26/22 16:24 CT Abd and Pelvis [CT abd pelvis IV con only] Stat Hospital Course (1) Abdominal pain: Etiology most likely multifactorial. Patient with Crohn's, endometriosis, and expanding ovarian mass. - Intelligence Officer Basic consulted -> Advised that patient may have mass effect and recommend transfer to [facility]. However, patient with continued ostomy output, and in the late morning, she felt much better. She did not want acute transfer to [facility] and preferred to attempt to restart feeding and see if she could discharge home with follow-up as planned. She is capable of making this decision, and in this case, I agree in that she is in no distress, eating well, pain is under control. With clinical change, I do not see reason for urgent transfer. - Pain control PRN - Buprenorphine 4 mg SL TID standing for her hx of opiate use -> By 08/28, patient was eating full diet (small, frequent meals). Ostomy output remained unchanged. Pain under control with low-dose morphine IV. Desired discharge as she is getting tomorrow. Labs and vitals all stable. See no reason she cannot safely be discharged. She reports [facility] coordinator is scheduling her surgery sooner, so will likely be before Sep.12 in any event. I think she can safely be discharged and plan for close follow-up and surgery at [facility]. (2) Lesion of ovary: Patient with expanding left ovarian mass, told that it was malignant based on imaging changes, rate of growth. She is supposed to be treated at [facility]. - Intelligence Officer Basic consultation as above (3) Hypoglycemia: BSG on arrival=54, improved with infusion of D5+NSS. - Due to poor PO intake; resolved. (4) Acute hypokalemia: K=2.7. S/p potassium chloride elixir & IV repletion. - Monitor -> Resolved. (5) Hypocalcemia: Low ionized calcium. - Replete PRN (6) Crohn's disease of colon with fistula: Noted. - Ileostomy management (7) Endometriosis: Noted Plan DVT ppx: Lovenox 30 mg HS Total Time Total Time Spent Total Time Spent (In Minutes): 25 Discharge Plan Discharge Items Patient Disposition: Home - Self-Care Reason For Visit: ABDOMINAL PAIN, EARLY SATIENT Discharge Diagnosis: Abdominal pain, ovarian mass Activity: Resume your previous activity Non-emergency contact: Primary Care Provider Call non-emergency contact if: your pain is not controlled Follow-up/Referrals: Salome Molina PA-C [Primary Care Provider] - (PLEASE CALL YOUR PRIMARY CARE PROVIDER TO SCHEDULE A DISCHARGE FOLLOW-UP APPOINTMENT WITHIN 7-10 DAYS.) Diet: Regular Addtl Attending Provider Instructions: Ms. Black, You were admitted to the hospital with abdominal pain, nausea, and vomiting that all seem related to your known ovarian mass. Initially, we thought we might have to transfer you, but you are doing quite well, and are planning to follow up with [facility] next week. Please continue to eat small bites/small meals to help reduce the chance of further issues before your surgery in [place]. Please come back to the hospital with any further issues. Best of luck on your wed tomorrow! I hope the day is filled with happiness! Pending Studies at Discharge: No Stand-Alone Forms: My [facility] [employer], Smoking Cessation Medications and DC Order Prescriptions: New hydrocodone-acetaminophen 5-325 mg tablet 1 tab PO TID PRN (Reason: pain) Qty: 14 0RF Continued acetaminophen [Tylenol Extra Strength] 500 mg Tablet 1,000 mg PO Q6H PRN (Reason: Pain) potassium chloride 20 mEq tablet,ER particles/crystals 20 meq PO DAILY magnesium oxide 400 mg (241.3 mg magnesium) tablet 400 mg PO DAILY cyanocobalamin (vitamin B-12) 1,000 mcg/mL Solution 1,000 mcg IM MO epinephrine 0.3 mg/0.3 mL Auto-Injector 0.3 mg IM Q4H PRN (Reason: Allergic Reaction) buprenorphine HCl 8 mg tablet, sublingual 4 mg SUBLINGUAL TID Rx Instructions: Dr hopkins says 1/2 tab daily, patient says she takes 1/2 tid. Trelegy Ellipta 200-62.5-25 mcg blister with device 1 inh INHALATION DAILY Discontinued cefpodoxime 200 mg tablet 200 mg PO BID Discharge Orders: Discharge Order (Routine); Ordered 08/28/22 Ordered By: Bertrand Nelson/Other Patient Handouts: Abdominal Pain, ED Endometriosis Admission Data Admit Date/Time: 08/26/22 20:58 Attending Provider: Bertrand Oropeza Admit Provider: Danelle Cooper Primary Care Provider: Salome Molina Other Providers: Danelle Cooper ; Ebonie Rosales Other Interventions: Discharge Summary Assessment (RN) Last Done: 08/28/22 12:46 Coding Level of Care Code D/C DAY MANAGEMENT <30 MINS Diagnoses Abdominal pain R10.9 Lesion of ovary N83.9 Hypoglycemia E16.2 Acute hypokalemia E87.6 Hypocalcemia E83.51 Crohn's disease of colon with fistula K50.113 Endometriosis N80.9
== END 2022-08-28 13:18 | disposition home or self-care (01) ==
LOC: ED 14:53 → 2W 20:58 → INTOOBSV 20:58 → SUATTDRO 20:58 → 2W 22:07

== ENCOUNTER 2023-04-08 13:59 | Inpatient (IN) ==
[2023-04-08] MEDS ORDERED: ONDANSETRON INJ 2 MG/ML 2 ML VIAL IV STA (14:08)
[2023-04-08] MEDS ORDERED: SODIUM CHLORIDE 0.9% 1000ML 1,000 ML IV STA (14:08)
--- NOTE | 2023-04-08 14:13 | Emergency Department Note ---
Impression & Plan Small bowel obstruction, Vomiting ED Provider Note INFORMANT: Patient ED PROVIDER(S): Carlos Keys DO CHIEF COMPLAINT: Abdominal pain, nausea vomiting PLAN: Disposition: [] Outpatient prescription management: [none] Discussion with:[] MEDICAL DECISION MAKING: This is a 37-year-old female who presents to the ED with a chief complaint of abdominal pain, nausea and vomiting. The patient states that she typically has similar symptoms to this when she has a small bowel obstruction or partial small bowel obstruction. The patient has history of an ileostomy, Crohn's disease, colectomy and small bowel obstructions. The patient reports that her nausea and vomiting started this morning. She states that her abdominal pain started yesterday. The pain is in the left lower quadrant. She states that no output from her colostomy has been seen since yesterday morning. The patient has no other complaints at this time. Her vital signs show hypotension with a blood pressure of 86/22. The other vital signs are unremarkable. She is afebrile. She does have a colostomy in place. There is nothing in the bag. The patient has some tenderness primarily to the left lower quadrant on my exam. She does appear to be cachectic. She is otherwise in mild distress due to her pain. Awake alert and oriented. Lungs are clear. Heart is regular rate and rhythm. The patient CT scan shows small bowel obstruction. An EKG shows normal sinus rhythm. CBC did not show leukocytosis or anemia. Chemistry panel showed no electrolyte abnormality or kidney dysfunction. COVID test was negative. The patient was told the results of the test. She was hydrated with IV fluids. She was given 2 L normal saline as her blood pressure was low. She was also given IV Zofran and IV fentanyl. She will be seen by the hospitalist for further evaluation and care for her small bowel obstruction. Triage Nursing notes reviewed. Vital Signs: reviewed Prior /Outside records reviewed: [none] Differential diagnosis: Small bowel obstruction, pancreatitis, diverticulitis, appendicitis, dehydration, electrolyte abnormality, infection, other. Diagnostics, as interpreted by me: 12 lead ECG: Normal sinus rhythm rate of 86. No ST elevation. No PVCs. Normal QTc. Cardiac Monitoring ordered: [none] Medical decision rules: [none] Imaging studies: CT scan of the on pelvis: Small bowel obstruction Procedures: none. Critical care: none. HPI: See MDM above. PAST MEDICAL HISTORY: See Below PAST SURGICAL HISTORY: See Below SOCIAL HISTORY: See Below HOME MEDICATIONS:See Below ALLERGIES: See Below VITALS: See Below PHYSICAL EXAMINATION: See MDM for positive findings otherwise unremarkable. CONSTITUTIONAL/VITAL SIGNS: Reviewed GENERAL:done as appropriate INTEGUMENTARY: done as appropriate HEAD: done as appropriate EYES: done as appropriate RESPIRATORY: done as appropriate CARDIOVASCULAR:done as appropriate GI/ABDOMEN:done as appropriate EXTREMITIES: done as appropriate NEUROLOGICAL: done as appropriate PSYCHIATRIC:done as appropriate MUSCULOSKELETAL:done as appropriate TRIAGE NURSING DOCUMENTATION REVIEWED. Past Med/Surg History Medical History Crohn disease Crohn's disease of colon with fistula Endometriosis History of MRSA infection "per records" Rheumatoid arthritis Surgical History H/O colectomy "total colectomy with ileoanal anastomosis 03/2006" H/O resection of large bowel multiple resections and clean outs History of rectal surgery "hundreds of fistula surgeries" S/P exploratory laparotomy endometriosis Family History Other Blood clot in vein Social History Smoking Status: Current every day smoker Tobacco Type: Cigarettes Second Hand Exposure: No; Do You Dip or Chew Tobacco: No; Hx Alcohol Use: No Hx Substance Use: No Preferred Language: Peruvian Communication Ability: Effective Watch Assembly Inspector Required: No Beliefs That Will Affect Care: None Current Living Situation: Alone and Family Feels Safe at Home: Yes Assistive Devices: None Allergies Allergies Allergy/AdvReac Type Severity Reaction Status Date / Time aspirin Allergy Severe ANAPHYLAXIS Unverified 08/26/22 21:10 infliximab Allergy Severe ANAPHYLAXIS Verified 08/26/22 21:10 NSAIDS (Non-Steroidal Allergy Unknown THROAT Verified 08/26/22 21:10 Anti-Inflamma SWELLING Sulfa (Sulfonamide Allergy Unknown throat Unverified 08/26/22 21:10 Antibiotics) swelling bee venom protein (honey bee) Allergy Anaphylaxis Verified 08/26/22 21:11 azathioprine AdvReac Unknown MIGRAINE Verified 08/26/22 21:10 Home Meds Home Medications Medication Instructions Recorded Confirmed acetaminophen 500 mg tablet 1,000 mg PO Q6H PRN Pain 08/26/22 08/26/22 (Tylenol Extra Strength) buprenorphine HCl 8 mg sublingual 4 mg sublingual TID 08/26/22 08/26/22 tablet cyanocobalamin (vitamin B-12) 1,000 mcg IM MO 08/26/22 08/26/22 1,000 mcg/mL injection solution epinephrine 0.3 mg/0.3 mL 0.3 mg IM Q4H PRN Allergic Reaction 08/26/22 08/26/22 injection, auto-injector fluticasone fur. 200 mcg-umeclid 1 inh inhalation DAILY 08/26/22 08/26/22 62.5 mcg-vilant 25 mcg inhalat.powder (Trelegy Ellipta) magnesium oxide 400 mg (241.3 mg 400 mg PO DAILY 08/26/22 08/26/22 magnesium) tablet potassium chloride 20 mEq 20 meq PO DAILY 08/26/22 08/26/22 tablet,extended release(part/cryst) Previous Rx's Medication Instructions Recorded hydrocodone 5 mg-acetaminophen 325 1 tab PO TID PRN pain #14 tabs 08/28/22 mg tablet Results & Data (ED) Vital Signs Vital Signs - 24 hr 04/08/23 14:08 04/08/23 14:13 04/08/23 14:11 Temperature 36.5 C Temperature Source Oral Pulse Rate 91 H 85 85 Pulse Rate [Apical] Pulse Rate from SpO2 Sensor 85 Respiratory Rate 18 14 Respiratory Effort / Characteristics Non-Labored Respiratory Depth Normal Respiratory Pattern Regular Blood Pressure 86/62 L Blood Pressure [Left Arm] Blood Pressure Mean 70 Blood Pressure Mean [Left Arm] Pulse Oximetry 97 95 Oxygen Delivery Method Room Air Sepsis Recent Fever Within 48 Hours No Sepsis New/Unexplained Change in Mental Status N/A Sepsis Action Taken by Nursing No Action Required 04/08/23 14:30 04/08/23 15:21 04/08/23 15:22 Temperature Temperature Source Pulse Rate 85 Pulse Rate [Apical] 90 Pulse Rate from SpO2 Sensor 84 Respiratory Rate 15 16 Respiratory Effort / Characteristics Respiratory Depth Respiratory Pattern Blood Pressure Blood Pressure [Left Arm] 89/63 L Blood Pressure Mean Blood Pressure Mean [Left Arm] 71 Pulse Oximetry 98 98 98 Oxygen Delivery Method Room Air Room Air Sepsis Recent Fever Within 48 Hours Sepsis New/Unexplained Change in Mental Status Sepsis Action Taken by Nursing Laboratory Data 04/08/23 14:00 04/08/23 14:00 Lab Results 04/08/23 04/08/23 04/08/23 Range/Units 14:00 14:00 14:37 WBC 7.95 (4.8-10.8) K/ul RBC 4.25 (4.20-5.40) M/uL Hgb 9.3 L (12.0-16.0) g/dl Hct 30.4 L (37.0-47.0) % MCV 71.5 L (80.0-100.0) fL MCH 21.9 L (25.0-34.0) pg MCHC 30.6 L (32.0-36.0) g/dL RDW Std Deviation 46.1 (36.4-46.3) fL RDW Coeff of [place] 17.9 H (11.5-14.5) % Plt Count 461 H (130-400) K/uL MPV 9.3 L (9.4-12.4) fL Immature Gran % (Auto) 0.5 % Neut % (Auto) 85.3 % Lymph % (Auto) 5.8 % [place] % (Auto) 8.2 % Eos % (Auto) 0.1 % Baso % (Auto) 0.1 % Neut # (Auto) 6.78 H (1.40-6.50) K/uL Lymph # (Auto) 0.46 L (1.2-3.4) K/uL [place] # (Auto) 0.65 H (0.11-0.59) K/uL Eos # (Auto) 0.01 (0-0.50) K/uL Baso # (Auto) 0.01 (0-0.2) K/uL Immature Gran # (Auto) 0.04 (0.01-0.20) K/uL Ovalocytes 1+ Sodium 133 L (136-145) mmol/L Potassium 4.3 (3.5-5.1) mmol/L Chloride 98 (98-107) mmol/L Carbon Dioxide 25 (21-32) mmol/L Anion Gap 10 (3-11) BUN 21 (6-23) mg/dl Creatinine 0.68 (0.6-1.2) mg/dl Est Cr Clr Drug Dosing 67.0 ml/min Est GFR ( Amer) 127.7 ml/min Est GFR (Non-Af Amer) 110.2 ml/min BUN/Creatinine Ratio 30.9 H (10-20) Glucose 93 (70-99(Fasting)) mg/dl Calcium 8.3 L (8.6-10.3) mg/dl Total Bilirubin 0.5 (0.2-1.0) mg/dl AST 5 L (13-39) U/L ALT 4 L (7-52) U/L Alkaline Phosphatase 93 (34-104) U/L Total Protein 6.0 (6.0-8.3) gm/dl Albumin 2.5 L (3.4-5.0) gm/dl Globulin 3.5 (2.5-4.0) gm/dl Albumin/Globulin Ratio 0.7 L (0.9-2) Lipase 13 (11-82) U/L SARS-CoV-2, RNA, NAAT NEGATIVE (NEGATIVE) Administered Medications Fentanyl Citrate (Fentanyl Citrate Pf 100 Mcg/2 Ml Vial) 50 mcg IV Q15M PRN PRN Reason: Pain Stop: 04/22/23 14:07 Last Admin: 04/08/23 15:18 Dose: 50 mcg Documented By: ML Discontinued Medications Sodium Chloride (Nss 1000ml) 1,000 mls @ 999 mls/hr IV .Q1H1M STA Stop: 04/08/23 15:08 Last Admin: 04/08/23 15:18 Dose: 999 mls/hr Documented By: ML Ondansetron HCl (Ondansetron Inj 2 Mg/Ml 2 Ml Vial) 4 mg IV NOW STA Stop: 04/08/23 14:09 Last Admin: 04/08/23 15:18 Dose: 4 mg Documented By: ML Imaging Data Radiologist's Impression: Abdomen/Pelvis CT 04/08/23 14:[address] WITHOUT CONTRAST CT DOSE: 478.72 mGy.cm HISTORY: Acute nausea and vomiting vomiting, no colostomy output,?sbo TECHNIQUE: Multiaxial CT images of the abdomen and pelvis were performed without contrast. A dose lowering technique was utilized adhering to the principles of ALARA. COMPARISON STUDY: 02/23/2023 FINDINGS: Limited exam without the use of IV contrast. Decreased attenuation of the cardiac blood pool suggestive of anemia. Clear lung bases. No pneumatosis or pneumoperitoneum. The spleen measures 13.7 cm in length. Unremarkable pancreas, gallbladder and adrenal glands. Focal fatty infiltration of the left hepatic lobe adjacent to the falciform ligament again noted. Liver is otherwise unremarkable. Unremarkable kidneys. No hydronephrosis. Urinary bladder wall thickening with partial distention. Unremarkable uterus. Septated cystic left ovarian mass measures up to 7.6 x 4.9 cm, previously 11.9 x 9.3 cm. Posterior mural nodular focus measures 3.9 cm which appears new versus change from the prior study where there is a 1.7 cm mural nodule present. No abdominal aortic aneurysm or new lymphadenopathy. Postoperative changes of subtotal colectomy with right lower quadrant ileostomy and rectal pouch. 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 Circumferential wall thickening of the anus. Several loops of small bowel demonstrate air-fluid levels and are dilated measuring up to approximately 4 cm. Borderline enlarged mesenteric lymph nodes measure up to 11 mm., Stable Interloop edema with trace abdominal pelvic ascites. Several loops of small bowel demonstrate circumferential wall thickening. Transitioned decompressed loops again noted within the left lower abdomen. Unremarkable soft tissues. No acute fracture. IMPRESSION: 1. Limited exam without the use of contrast. Prior subtotal colectomy with right lower quadrant ileostomy and rectal pouch formation. 2. Small bowel obstruction is similar in appearance to the study from 02/23/2023, likely with transition point in the left lower quadrant. 3. Interloop edema with small volume of abdominal pelvic ascites. 4. Several borderline enlarged mesenteric lymph nodes may be reactive. 5. 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 6. Complex cystic left adnexal mass has decreased in size from prior with possible increased size of a mural nodule versus intralesional hemorrhage. Attention at follow-up recommended. 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 ACT 112: Negative or not required by law. The above report was generated using voice recognition software. It may contain grammatical, syntax or spelling errors. Electronically signed by: Renny Colon M.D. 04/08/2023 3:30 PM Discharge Plan Visit Data Chief Complaint: Abdominal Pain Stated Complaint: AB PAIN ED Provider: Carlos Keys Problem: Small bowel obstruction, Vomiting Patient Disposition: Being Evaluated by Hospitalist Forms Stand Alone Forms: [facility], [facility] Emergency Department, Important Visit Information Prescriptions Prescriptions: No Action acetaminophen [Tylenol Extra Strength] 500 mg Tablet 1,000 mg PO Q6H PRN (Reason: Pain) potassium chloride 20 mEq tablet,ER particles/crystals 20 meq PO DAILY magnesium oxide 400 mg (241.3 mg magnesium) tablet 400 mg PO DAILY cyanocobalamin (vitamin B-12) 1,000 mcg/mL Solution 1,000 mcg IM MO epinephrine 0.3 mg/0.3 mL Auto-Injector 0.3 mg IM Q4H PRN (Reason: Allergic Reaction) buprenorphine HCl 8 mg tablet, sublingual 4 mg SUBLINGUAL TID Rx Instructions: Dr hopkins says 1/2 tab daily, patient says she takes 1/2 tid. Trelegy Ellipta 200-62.5-25 mcg blister with device 1 inh INHALATION DAILY hydrocodone-acetaminophen 5-325 mg tablet 1 tab PO TID PRN (Reason: pain) Qty: 14 0RF Referrals Referrals: Salome Molina PA-C [Primary Care Provider] -
[2023-04-08 15:02] LABS: Hematocrit (blood only) 30.4 % (37.0-47.0); Hemoglobin 9.3 g/dl (12.0-16.0); Mean Corpuscular Hemoglobin 21.9 pg (25.0-34.0); Mean Corpuscular Hgb Conc 30.6 g/dL (32.0-36.0); Mean Corpuscular Volume 71.5 fL (80.0-100.0); Mean Platelet Volume 9.3 fL (9.4-12.4); Platelet Count 461 K/uL (130-400); RDW Coefficient of Variation 17.9 % (11.5-14.5); RDW Standard Deviation 46.1 fL (36.4-46.3); Red Blood Count 4.25 M/uL (4.20-5.40); White Blood Count 7.95 K/ul (4.8-10.8)
[2023-04-08 15:10] LABS: Albumin Globulin Ratio 0.7 (0.9-2); Albumin Level 2.5 gm/dl (3.4-5.0); BUN Creatinine Ratio 30.9 (10-20); Bilirubin,Total 0.5 mg/dl (0.2-1.0); Calcium 8.3 mg/dl (8.6-10.3); Est GFR (African American) 127.7 ml/min; Est GFR (Non-African American) 110.2 ml/min; Globulin 3.5 gm/dl (2.5-4.0); Potassium 4.3 mmol/L (3.5-5.1)
[2023-04-08] MEDS: fentaNYL citrate PF 100 MCG/2 ML VIAL IV PRN ×2 (15:18→19:41)
[2023-04-08 15:24] LABS: Basophils # (auto) 0.01 K/uL (0-0.2); Basophils % (auto) 0.1 %; Eosinophils # (auto) 0.01 K/uL (0-0.50); Eosinophils % (auto) 0.1 %; Immature Granulocytes # (auto) 0.04 K/uL (0.01-0.20); Immature Granulocytes % (auto) 0.5 %; Lymphocytes # (auto) 0.46 K/uL (1.2-3.4); Lymphocytes % (auto) 5.8 %; Monocytes # (auto) 0.65 K/uL (0.11-0.59); Monocytes % (auto) 8.2 %; Neutrophils # (auto) 6.78 K/uL (1.40-6.50); Neutrophils % (auto) 85.3 %; Ovalocytes 1+
--- NOTE | 2023-04-08 15:32 | CT Scan Report ---
ABDOMEN AND PELVIS CT WITHOUT CONTRAST CT DOSE: 478.72 mGy.cm HISTORY: Acute nausea and vomiting vomiting, no colostomy output,?sbo TECHNIQUE: Multiaxial CT images of the abdomen and pelvis were performed without contrast. A dose lo wering technique was utilized adhering to the principles of ALARA. COMPARISON STUDY: 02/23/2023 FINDINGS: Limited exam without the use of IV contrast. Decreased attenuation of the cardiac blood poo l suggestive of anemia. Clear lung bases. No pneumatosis or pneumoperitoneum. The spleen measures 13.7 cm in length. Unremarkable pancreas, gal lbladder and adrenal glands. Focal fatty infiltration of the left hepatic lobe adjacent to the falcif orm ligament again noted. Liver is otherwise unremarkable. Unremarkable kidneys. No hydronephrosis. U rinary bladder wall thickening with partial distention. Unremarkable uterus. Septated cystic left ova jack mass measures up to 7.6 x 4.9 cm, previously 11.9 x 9.3 cm. Posterior mural nodular focus measur es 3.9 cm which appears new versus change from the prior study where there is a 1.7 cm mural nodule p resent. No abdominal aortic aneurysm or new lymphadenopathy. Postoperative changes of subtotal colectomy with right lower quadrant ileostomy and rectal pouch. Unchanged appearance of the chronic bilateral peria nal fistulas which are fluid-filled. Circumferential wall thickening of the anus. Several loops of sm all bowel demonstrate air-fluid levels and are dilated measuring up to approximately 4 cm. Borderline enlarged mesenteric lymph nodes measure up to 11 mm., Stable Interloop edema with trace abdominal pe lvic ascites. Several loops of small bowel demonstrate circumferential wall thickening. Transitioned decompressed loops again noted within the left lower abdomen. Unremarkable soft tissues. No acute fra cture. IMPRESSION: 1. Limited exam without the use of contrast. Prior subtotal colectomy with right lower quadrant ileos ranjit and rectal pouch formation. 2. Small bowel obstruction is similar in appearance to the study from 02/23/2023, likely with transiti on point in the left lower quadrant. 3. Interloop edema with small volume of abdominal pelvic ascites. 4. Several borderline enlarged mesenteric lymph nodes may be reactive. 5. 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 6. Complex cystic left adnexal mass has decreased in size from prior with possible increased size of a mural nodule versus intralesional hemorrhage. Attention at follow-up recommended. Ovarian epithelia l neoplasm remains the diagnosis of exclusion. ACT 112: Negative or not required by law. The above report was generated using voice recognition software. It may contain grammatical, syntax o r spelling errors. Electronically signed by: Renny Colon M.D. 04/08/2023 3:30 PM
[2023-04-08] MEDS ORDERED: SODIUM CHLORIDE 0.9% 1000ML 1,000 ML IV ONE (15:42)
--- NOTE | 2023-04-08 16:20 | History & Physical Report ---
Date of Service April 08, 2023 Assessment & Plan (1) Small bowel obstruction: Plan: IV fluids, NPO, if further vomiting will consider NG tube but generally recurent episode have resolved without this with conservative management Consult general surgery. (2) Crohn disease: Plan: Patient reports stable not on any active treatment for this. (3) Iron deficiency anemia: Plan: Worsening microcytosis on labs. Suspect nutritional. No melena or bright red blood in stool. FOB ordered. Ferritin, iron sats, B12 and folate with AM labs (4) Severe protein-calorie malnutrition: Plan: Consult sponge buffer (5) Lesion of ovary: Plan: Follow up at [facility] - reportedly recently performed aspiration there - unknown results at time of admission. Plan VTE Prophylaxis - low risk Diet - NPO Disposition - admit to med/tele Admission and Anticipated Discharge Date Admission Date: April 08, 2023 History of Present Illness Chief Complaint: Abdominal pain Primary Care Provider: Salome Jesse Black is a 37 year old female with recurrent small bowel obstruction, ovarian mass (being worked up at [facility]) and Crohn's disease who presents to the ER with 2 days of worsening abdominal pain, nausea and vomiting. Pain in left lower quadrant, no radiation, worse on palpation. Possibly exacerbated after eating eggs. Reduced output from her ileostomy. No melena or bright red blood in stool. Allergies Allergy/AdvReac Type Severity Reaction Status Date / Time aspirin Allergy Severe ANAPHYLAXIS Unverified 08/26/22 21:10 infliximab Allergy Severe ANAPHYLAXIS Verified 08/26/22 21:10 NSAIDS (Non-Steroidal Allergy Unknown THROAT Verified 08/26/22 21:10 Anti-Inflamma SWELLING Sulfa (Sulfonamide Allergy Unknown throat Unverified 08/26/22 21:10 Antibiotics) swelling bee venom protein (honey bee) Allergy Anaphylaxis Verified 08/26/22 21:11 ketorolac [From Toradol] Allergy Swelling Verified 04/08/23 22:53 of Lip/Tongue/Throat azathioprine AdvReac Unknown MIGRAINE Verified 08/26/22 21:10 Home Medications Medication Instructions Recorded Confirmed Type acetaminophen 500 mg tablet 1,000 mg PO Q6H PRN Pain 08/26/22 08/26/22 History (Tylenol Extra Strength) cyanocobalamin (vitamin B-12) 1,000 mcg IM MO 08/26/22 08/26/22 History 1,000 mcg/mL injection solution epinephrine 0.3 mg/0.3 mL 0.3 mg IM Q4H PRN Allergic Reaction 08/26/22 08/26/22 History injection, auto-injector fluticasone fur. 200 mcg-umeclid 1 inh inhalation DAILY 08/26/22 08/26/22 History 62.5 mcg-vilant 25 mcg inhalat.powder (Trelegy Ellipta) magnesium oxide 400 mg (241.3 mg 400 mg PO DAILY 08/26/22 08/26/22 History magnesium) tablet potassium chloride 20 mEq 20 meq PO DAILY 08/26/22 08/26/22 History tablet,extended release(part/cryst) hydrocodone 5 mg-acetaminophen 325 1 tab PO TID PRN pain #14 tabs 08/28/22 Rx mg tablet buprenorphine HCl 8 mg sublingual mg sublingual BID 04/08/23 History tablet Past Med/Surg History Medical History Crohn disease Crohn's disease of colon with fistula Endometriosis History of MRSA infection "per records" Rheumatoid arthritis Surgical History H/O colectomy "total colectomy with ileoanal anastomosis 03/2006" H/O resection of large bowel multiple resections and clean outs History of rectal surgery "hundreds of fistula surgeries" S/P exploratory laparotomy endometriosis Family History Other Blood clot in vein Social History Smoking Status: Former smoker Tobacco Type: Cigarettes Second Hand Exposure: No; Do You Dip or Chew Tobacco: No; Hx Alcohol Use: No Hx Substance Use: No Preferred Language: Bengali Communication Ability: Effective 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 Beliefs That Will Affect Care: None Current Living Situation: Family Current Living Situation Comment: Lives at home with daughter Feels Safe at Home: Yes Safety Concerns: Feels Safe At This Time Assistive Devices: None Review of Systems Review of Systems: All systems reviewed & are unremarkable except as noted in HPI & below Physical Exam Constitutional: well developed; + not well nourished and no acute distress Eyes: + anicteric sclerae; normal pupil size ENMT: Mouth: + dry oral mucous membranes Neck: trachea midline, no thyromegaly Respiratory: normal respiratory effort, lungs clear to auscultation Cardiovascular: RRR, no murmur, no edema Gastrointestinal (Abdomen): Inspection/Auscultation: abdomen normal to inspection; abdomen not distended Percussion/Palpation: + abdomen tender and abdomen soft; no guarding and abdomen not rigid Musculoskeletal: Severe chronic muscle wasting Skin: no rashes, warm and dry Neurologic: moves all extremities and awake; not confused Psychiatric: A+Ox3, euthymic affect Genitourinary: no CVA tenderness Results & Data Results & Data Vital Signs (Past 12 Hours) Vital Signs Temp Pulse Pulse Resp BP BP Pulse Ox 04/08/23 15:49 95/62 L 04/08/23 15:22 98 04/08/23 15:21 90 16 89/63 L 98 04/08/23 14:30 85 15 98 04/08/23 14:11 85 14 95 04/08/23 14:13 85 04/08/23 14:08 36.5 C 91 H 18 86/62 L 97 O2 Del Method 04/08/23 15:49 04/08/23 15:22 Room Air 04/08/23 15:21 Room Air 04/08/23 14:30 04/08/23 14:11 04/08/23 14:13 04/08/23 14:08 Room Air Laboratory Results Abnormal lab results 04/08/23 04/08/23 Range/Units 14:00 14:00 Hgb 9.3 L (12.0-16.0) g/dl Hct 30.4 L (37.0-47.0) % MCV 71.5 L (80.0-100.0) fL MCH 21.9 L (25.0-34.0) pg MCHC 30.6 L (32.0-36.0) g/dL RDW Coeff of [place] 17.9 H (11.5-14.5) % Plt Count 461 H (130-400) K/uL MPV 9.3 L (9.4-12.4) fL Neut # (Auto) 6.78 H (1.40-6.50) K/uL Lymph # (Auto) 0.46 L (1.2-3.4) K/uL [place] # (Auto) 0.65 H (0.11-0.59) K/uL Sodium 133 L (136-145) mmol/L BUN/Creatinine Ratio 30.9 H (10-20) Calcium 8.3 L (8.6-10.3) mg/dl AST 5 L (13-39) U/L ALT 4 L (7-52) U/L Albumin 2.5 L (3.4-5.0) gm/dl Albumin/Globulin Ratio 0.7 L (0.9-2) Diagnostic Findings ABDOMEN AND PELVIS CT WITHOUT CONTRAST CT DOSE: 478.72 mGy.cm HISTORY: Acute nausea and vomiting vomiting, no colostomy output,?sbo TECHNIQUE: Multiaxial CT images of the abdomen and pelvis were performed without contrast. A dose lowering technique was utilized adhering to the principles of ALARA. COMPARISON STUDY: 02/23/2023 FINDINGS: Limited exam without the use of IV contrast. Decreased attenuation of the cardiac blood pool suggestive of anemia. Clear lung bases. No pneumatosis or pneumoperitoneum. The spleen measures 13.7 cm in length. Unremarkable pancreas, gallbladder and adrenal glands. Focal fatty infiltration of the left hepatic lobe adjacent to the falciform ligament again noted. Liver is otherwise unremarkable. Unremarkable kidneys. No hydronephrosis. Urinary bladder wall thickening with partial distention. Unremarkable uterus. Septated cystic left ovarian mass measures up to 7.6 x 4.9 cm, previously 11.9 x 9.3 cm. Posterior mural nodular focus measures 3.9 cm which appears new versus change from the prior study where there is a 1.7 cm mural nodule present. No abdominal aortic aneurysm or new lymphadenopathy. Postoperative changes of subtotal colectomy with right lower quadrant ileostomy and rectal pouch. 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 Circumferential wall thickening of the anus. Several loops of small bowel demonstrate air-fluid levels and are dilated measuring up to approximately 4 cm. Borderline enlarged mesenteric lymph nodes measure up to 11 mm., Stable Interloop edema with trace abdominal pelvic ascites. Several loops of small bowel demonstrate circumferential wall thickening. Transitioned decompressed loops again noted within the left lower abdomen. Unremarkable soft tissues. No acute fracture. IMPRESSION: 1. Limited exam without the use of contrast. Prior subtotal colectomy with right lower quadrant ileostomy and rectal pouch formation. 2. Small bowel obstruction is similar in appearance to the study from 02/23/2023, likely with transition point in the left lower quadrant. 3. Interloop edema with small volume of abdominal pelvic ascites. 4. Several borderline enlarged mesenteric lymph nodes may be reactive. 5. 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 6. Complex cystic left adnexal mass has decreased in size from prior with possib le increased size of a mural nodule versus intralesional hemorrhage. Attention at follow-up recommended. 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 Medications Administered ER Medications Given: NSS 1L bolus Fentanyl 50 mcg IV NSS 1L bolus Ondansetron 4mg IV ECG Rate (beats per minute): 86 Rhythm: normal sinus Findings: no acute ischemic change Comparison ECG Date: from (September 24, 2022) Change: the following changes noted (QRS shifted right) Code Status & VTE Plan Code Status Full PG Care Time/CCT Total # of Minutes Spent Total Time Spent with Patient: Total time spent is greater than 50% in coordination of care (as documented) at patient's floor/unit and/or counseling patient: Coding Level of Care Code 78789 INT INP/OBS CARE 2/55MIN Diagnoses Small bowel obstruction K56.609 Crohn disease K50.90 Iron deficiency anemia D50.9 Severe protein-calorie malnutrition E43 Lesion of ovary N83.9
--- NOTE | 2023-04-08 20:24 | Surgery Consultation ---
This case was discussed with the surgical PA. I agree with this plan. Date of Consultation April 08, 2023 Assessment & Plan (1) Small bowel obstruction: Patient has been admitted on the hospitalist service. We recommend proceeding as follows: Provide IV fluid for hydration Provide analgesics Provide antiemetics Implement n.p.o. status. I did explain to the patient the rationale for making her n.p.o. as any oral intake could exacerbate her abdominal pain due to her small bowel obstruction. I did discuss with the patient the possibility of placing an NG tube for gastric decompression to improve her symptomatology. The patient has refused this modality. If the patient does have worsening symptomatology we can potentially revisit this modality with the patient if she is agreeable. We will continue to follow along with additional recommendations to follow based on her clinical course as it unfolds History of Present Illness Reason for Consultation: Small bowel obstruction History of Present Illness This is a 37-year-old female with a complex medical history. The patient has a history of Crohn's disease for which she has undergone a total colectomy with an ileostomy and a rectal pouch performed greater than 20 years ago. Patient has also had multiple surgeries for perianal fistulas. The patient notes that she currently follows with a colorectal surgeon at the [facility] and she has an appointment this the this person in 2 days. The patient has a history of a left ovarian mass that she follows at [facility]. This mass was diagnosed approximately 1 year ago. The patient was supposed to have surgery to have this removed at [facility] but this was not yet accomplished. Patient was most recently seen in the [facility] emergency department on 02/23/2023 secondary to a small bowel obstruction. She was evaluated by Dr. Sally Duenas of [facility] gastroenterology and she felt that the patient's ovarian mass was contributing to small bowel obstruction and recommended transfer to [facility]. She was transferred [facility] where the patient says that she had her ovarian mass aspirated for approximately 600 cc of fluid. She says she was also treated with bowel rest and fluids and her small bowel obstruction resolved without surgical intervention. Patient presented to the emergency department at [facility] today secondary to decreased ostomy output over the past 24 hours along with nausea and vomiting and abdominal pain. She denies any fevers, shakes, or chills. Patient notes that prior to 02/23/2023 she has not had a small bowel obstruction in 10 years and is never required any additional abdominal surgeries since her total colectomy and ileostomy other than surgeries for perianal fistulas. Since arrival to the hospital today the patient has had labs and imaging which independent reviewed. A CT scan abdomen pelvis showed the patient had a small bowel obstruction which appeared similar to comparison study from 02/23/2023. There is felt to be a transition point in the left lower quadrant. There is no pneumatosis or pneumoperitoneum. The patient was noted to have chronic bilateral perianal fistulas which are fluid-filled and these also appeared unchanged when compared to prior imaging. There is some trace abdominal pelvic ascites. Patient is also noted to have a complex cystic lesion in the left adnexa which is decreased in size from a CT scan on 02/23/2023. Labs include a CBC her white blood cell count was normal. Her hemoglobin and hematocrit were 9.3 and 30.4. Platelet count is 461,000. Chemistry profile showed sodium was 133 with a potassium of 4.3. BUN and creatinine are both normal. A COVID test was negative. At the time of my interview the patient was resting comfortably in bed and she was in no distress Allergies Allergy/AdvReac Type Severity Reaction Status Date / Time aspirin Allergy Severe ANAPHYLAXIS Unverified 08/26/22 21:10 infliximab Allergy Severe ANAPHYLAXIS Verified 08/26/22 21:10 NSAIDS (Non-Steroidal Allergy Unknown THROAT Verified 08/26/22 21:10 Anti-Inflamma SWELLING Sulfa (Sulfonamide Allergy Unknown throat Unverified 08/26/22 21:10 Antibiotics) swelling bee venom protein (honey bee) Allergy Anaphylaxis Verified 08/26/22 21:11 azathioprine AdvReac Unknown MIGRAINE Verified 08/26/22 21:10 Home Medications Medication Instructions Recorded Confirmed Type acetaminophen 500 mg tablet 1,000 mg PO Q6H PRN Pain 08/26/22 08/26/22 History (Tylenol Extra Strength) buprenorphine HCl 8 mg sublingual 4 mg sublingual TID 08/26/22 08/26/22 History tablet cyanocobalamin (vitamin B-12) 1,000 mcg IM MO 08/26/22 08/26/22 History 1,000 mcg/mL injection solution epinephrine 0.3 mg/0.3 mL 0.3 mg IM Q4H PRN Allergic Reaction 08/26/22 08/26/22 History injection, auto-injector fluticasone fur. 200 mcg-umeclid 1 inh inhalation DAILY 08/26/22 08/26/22 History 62.5 mcg-vilant 25 mcg inhalat.powder (Trelegy Ellipta) magnesium oxide 400 mg (241.3 mg 400 mg PO DAILY 08/26/22 08/26/22 History magnesium) tablet potassium chloride 20 mEq 20 meq PO DAILY 08/26/22 08/26/22 History tablet,extended release(part/cryst) hydrocodone 5 mg-acetaminophen 325 1 tab PO TID PRN pain #14 tabs 08/28/22 Rx mg tablet Patient History Medical History Crohn disease Crohn's disease of colon with fistula Endometriosis History of MRSA infection "per records" Rheumatoid arthritis Surgical History H/O colectomy "total colectomy with ileoanal anastomosis 03/2006" H/O resection of large bowel multiple resections and clean outs History of rectal surgery "hundreds of fistula surgeries" S/P exploratory laparotomy endometriosis Family History Other Blood clot in vein Social History Smoking Status: Current every day smoker Tobacco Type: Cigarettes Second Hand Exposure: No; Do You Dip or Chew Tobacco: No; Hx Alcohol Use: No Hx Substance Use: No Preferred Language: Hungarian Communication Ability: Effective 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 Beliefs That Will Affect Care: None Current Living Situation: Alone and Family Feels Safe at Home: Yes Assistive Devices: None Review of Systems 2 Constitutional: no fever and no chills Ear, Nose, Mouth, Throat: no hearing loss Respiratory: no cough and no dyspnea Cardiovascular: no chest pain Gastrointestinal: as per Subjective / HPI Genitourinary: no dysuria Musculoskeletal: no back pain Integumentary: no rash Neurologic: no localized weakness Physical Exam Constitutional: + thin; no acute distress Eyes: no conjunctival abnormality ENMT: Ears: no hearing impairment Mouth: no oropharynx abnormality Neck: trachea midline Respiratory: normal respiratory effort; no respiratory distress and no labored breathing Cardiovascular: Rate/Rhythm: regular rate and regular rhythm Gastrointestinal (Abdomen): Abdomen is soft and nondistended. The patient did have some generalized pain throughout her abdomen but this appears to be greatest just to the left of her ileostomy. There is no rebound tenderness. Musculoskeletal: No calf tenderness Skin: no rashes Neurologic: moves all extremities Psychiatric: A+Ox3, euthymic affect Results & Data Vital Signs (Past 12 Hours) Vital Signs Temp Pulse Pulse Resp BP BP Pulse Ox 04/08/23 19:30 77 15 84/55 L 98 04/08/23 19:00 79 19 86/55 L 98 04/08/23 18:34 72 20 87/63 L 98 04/08/23 18:09 79 04/08/23 16:40 75 17 87/57 L 96 04/08/23 15:49 95/62 L 04/08/23 15:22 98 04/08/23 15:21 90 16 89/63 L 98 04/08/23 14:30 85 15 98 04/08/23 14:11 85 14 95 04/08/23 14:13 85 04/08/23 14:08 36.5 C 91 H 18 86/62 L 97 O2 Del Method 04/08/23 19:30 Room Air 04/08/23 19:00 Room Air 04/08/23 18:34 Room Air 04/08/23 18:09 04/08/23 16:40 Room Air 04/08/23 15:49 04/08/23 15:22 Room Air 04/08/23 15:21 Room Air 04/08/23 14:30 04/08/23 14:11 04/08/23 14:13 04/08/23 14:08 Room Air PG Care Time/CCT Total # of Minutes Spent Total Time Spent with Patient: Total time spent is greater than 50% in coordination of care (as documented) at patient's floor/unit and/or counseling patient: Coding Level of Care Code 01533 IN/OBS CONSULT LVL 5,80M Diagnoses Small bowel obstruction K56.609
[2023-04-08] MEDS ORDERED: ACETAMINOPHEN 1,000 MG/100 ML VIAL IV PRN (20:43)
[2023-04-08] MEDS: LACTATED RINGER'S 1,000 ML IV SCH (21:17)
[2023-04-08] MEDS ORDERED: PANTOprazole 40 MG TAB PO SCH (21:45)
[2023-04-08] MEDS ORDERED: FAMOTIDINE 20 MG in SYRINGE 3 ML IV ONE (21:45)
[2023-04-08] MEDS ORDERED: ALBUMIN 5% 250 ML IV ONE (22:08)
[2023-04-08] MEDS ORDERED: KETOROLAC TROMETHAMINE 15 MG/ML VIAL IV ONE (22:37)
[2023-04-08] MEDS ORDERED: HYDROmorphone INJ 0.5 MG/0.5 ML SYR IV PRN (23:08)
[2023-04-08] MEDS ORDERED: ONDANSETRON INJ 2 MG/ML 2 ML VIAL IV PRN (23:08)
[2023-04-08] MEDS: PANTOprazole 40 MG in SYRINGE 0 ML IV SCH (23:28)
[2023-04-08] MEDS ORDERED: LACTATED RINGER'S 500 ML IV ONE (23:33)
[2023-04-08 23:38] LABS: Hemoglobin 6.9 g/dl (12.0-16.0); Mean Corpuscular Hemoglobin 22.1 pg (25.0-34.0); Mean Corpuscular Volume 73.7 fL (80.0-100.0); Mean Platelet Volume 8.8 fL (9.4-12.4); Platelet Count 296 K/uL (130-400); RDW Coefficient of Variation 18.1 % (11.5-14.5); RDW Standard Deviation 47.9 fL (36.4-46.3); Red Blood Count 3.12 M/uL (4.20-5.40); White Blood Count 5.27 K/ul (4.8-10.8)
[2023-04-08] MEDS: buprenorphine HCL 8 MG SUBL SL SCH (23:39)
[2023-04-08] MEDS: HYDROmorphone INJ 0.5 MG/0.5 ML SYR IV PRN (23:42)
[2023-04-09 00:27] LABS: Hematocrit (blood only) 24.3 % (37.0-47.0); Hemoglobin 7.2 g/dl (12.0-16.0)
[2023-04-09] MEDS ORDERED: SODIUM CHLORIDE 0.9% 250 ML IV PRN (00:37)
[2023-04-09] MEDS: HYDROmorphone INJ 0.5 MG/0.5 ML SYR IV PRN ×2 (05:07→20:09)
[2023-04-09] MEDS: buprenorphine HCL 8 MG SUBL SL SCH ×3 (08:58→21:46)
--- NOTE | 2023-04-09 09:56 | Surgery Progress Note ---
I saw and examined this patient. Held off on diet advancement at this time, otherwise, I agreed with the plan. Date of Service April 09, 2023 Assessment & Plan (1) Small bowel obstruction: Plan: Patient here with n/v/abdominal pain with CT concerning for SBO She is feeling much better today and self reports + ileostomy output Abdomen is soft with some discomfort elicited in the LLQ which is ongoing for her given history of ovarian mass Is noted to have a hbg drop to 7.2(9.3) and is having some asymptomatic hypotension which appears to be stable for her Can consider clear liquids later today and see how she fairs Apparently was previously scheduled for an appt at [facility] tomorrow for further workup/plans of her ovarian mass Admission and Anticipated Discharge Date Admission Date: April 08, 2023 Subjective Patient reports feeling much better than yesterday. Denies nausea/vomiting since being in the ER. Abdominal pain's improved as she was previously dealing with what she described as labor like pains. Has LLQ discomfort that she says has been present since her mass was diagnosed. She states her ostomy has started to function. Physical Exam Physical Exam: awake/alert, no distress Gastrointestinal (Abdomen): Inspection/Auscultation: + abdomen distended (mild) Percussion/Palpation: + abdomen tender (some discomfort noted in LLQ region) and abdomen soft + ileostomy, recently emptied, no stool/gas in bag upon interview Results & Data Vital Signs (Past 12 Hours) Vital Signs Temp Pulse Pulse Resp BP BP Pulse Ox 04/09/23 08:08 36.4 C L 68 16 81/54 L 97 04/09/23 07:00 36.4 C L 68 14 81/54 L 97 04/09/23 06:00 36.7 C 63 14 75/46 L 97 04/09/23 05:00 36.4 C 74 18 61/41 L 98 04/09/23 04:30 36.6 C 72 18 83/55 L 97 04/09/23 04:15 36.5 C 67 16 77/48 L 97 04/09/23 03:55 36.6 C 71 16 71/42 L 97 04/09/23 00:47 74 O2 Del Method 04/09/23 08:08 Room Air 04/09/23 07:00 04/09/23 06:00 04/09/23 05:00 04/09/23 04:30 04/09/23 04:15 04/09/23 03:55 04/09/23 00:47 PG Care Time/CCT Total # of Minutes Spent Total Time Spent with Patient: Total time spent is greater than 50% in coordination of care (as documented) at patient's floor/unit and/or counseling patient: Coding Level of Care Code 36449 SUB INP/OBS CARE 11/28MIN Diagnoses Small bowel obstruction K56.609
[2023-04-09 10:41] LABS: Hematocrit (blood only) 30.8 % (37.0-47.0); Hemoglobin 9.6 g/dl (12.0-16.0); Mean Corpuscular Hemoglobin 23.6 pg (25.0-34.0); Mean Corpuscular Hgb Conc 31.2 g/dL (32.0-36.0); Mean Corpuscular Volume 75.9 fL (80.0-100.0); Mean Platelet Volume 8.8 fL (9.4-12.4); Platelet Count 359 K/uL (130-400); RDW Coefficient of Variation 18.6 % (11.5-14.5); RDW Standard Deviation 51.1 fL (36.4-46.3); Red Blood Count 4.06 M/uL (4.20-5.40); Reticulocyte % 1.3 % (0.5-2.0); Reticulocytes # 0.05 10^6/uL (0.02-0.10); White Blood Count 5.65 K/ul (4.8-10.8)
[2023-04-09 10:55] LABS: Anion Gap 6 (3-11); BUN Creatinine Ratio 29.3 (10-20); Blood Urea Nitrogen 17 mg/dl (6-23); Carbon Dioxide 24 mmol/L (21-32); Chloride 105 mmol/L (98-107); Creatinine Clr Calc Pharmacy 79.8 ml/min; Est GFR (African American) 134.6 ml/min; Est GFR (Non-African American) 116.1 ml/min; Glucose 73 mg/dl (70-99(Fasting)); Potassium 3.9 mmol/L (3.5-5.1); Sodium 135 mmol/L (136-145)
[2023-04-09 11:10] LABS: Ferritin 54.8 ng/ml (8-388)
[2023-04-09 11:12] LABS: Alanine Aminotransferase 3 U/L (7-52); Albumin Globulin Ratio 0.8 (0.9-2); Albumin Level 2.4 gm/dl (3.4-5.0); Alkaline Phosphatase 71 U/L (34-104); Aspartate Aminotransferase 5 U/L (13-39); Bilirubin,Total 0.9 mg/dl (0.2-1.0); Globulin 2.9 gm/dl (2.5-4.0); Iron 105 mcg/dl (35-150); Magnesium 1.5 mg/dl (1.7-2.4); Phosphorus 2.9 mg/dl (2.5-4.9); Total Protein 5.3 gm/dl (6.0-8.3); Unsaturated Iron Binding Cap < 55 mcg/dl (155-355)
[2023-04-09 11:14] LABS: Basophils # (auto) 0.03 K/uL (0-0.2); Basophils % (auto) 0.5 %; Echinocytes 1+; Eosinophils % (auto) 1.8 %; Immature Granulocytes # (auto) 0.04 K/uL (0.01-0.20); Immature Granulocytes % (auto) 0.7 %; Lymphocytes % (auto) 14.2 %; Monocytes # (auto) 0.61 K/uL (0.11-0.59); Monocytes % (auto) 10.8 %; Neutrophils # (auto) 4.07 K/uL (1.40-6.50)
[2023-04-09] MEDS: LACTATED RINGER'S 1,000 ML IV SCH ×2 (12:13→23:35)
[2023-04-09] MEDS: PANTOprazole 40 MG in SYRINGE 0 ML IV SCH (12:14)
--- NOTE | 2023-04-09 15:00 | Hospitalist Progress Note ---
Date of Service April 09, 2023 Assessment & Plan (1) Small bowel obstruction: Plan: IV fluids, NPO Continue analgesics Patient is refusing NG tube placement Continue n.p.o. until pain-free Continue conservative management General surgery on board (2) Crohn disease: Plan: Patient reports stable not on any active treatment for this. (3) Iron deficiency anemia: Plan: Worsening microcytosis on labs. Suspect nutritional. No melena or bright red blood in stool. FOB ordered. Ferritin, iron sats, B12 and folate with AM labs (4) Severe protein-calorie malnutrition: Plan: Consult acid dumper (5) Lesion of ovary: Plan: Follow up at [facility] - reportedly recently performed aspiration there - unknown results at time of admission. Plan VTE Prophylaxis - low risk Diet - NPO Disposition - admit to med/tele Admission and Anticipated Discharge Date Admission Date: April 08, 2023 Subjective Patient feels slightly better. Still has the abdominal pain and nausea. No vomiting. Says that she has had some ostomy output. Review of Systems Review of Systems: All systems reviewed & are unremarkable except as noted in Subjective Physical Exam Physical Exam: General: Awake, conversant Heart: S1, S2/regular rate and rhythm, no murmur rubs or gallops Lungs: Clear to auscultation bilaterally. Normal effort Abdomen: Soft/nondistended. Mild tenderness to palpation diffusely. No rebound, rigidity or guarding. Ostomy in place. No hepatosplenomegaly. Bowel sounds heard Extremities: No clubbing/cyanosis. No edema Behavior: Appropriate, cooperative Results & Data Results & Data Vital Signs (Past 12 Hours) Vital Signs Temp Pulse Pulse Resp BP BP Pulse Ox 04/09/23 11:41 36.7 C 64 16 80/57 L 98 04/09/23 08:08 36.4 C L 68 16 81/54 L 97 04/09/23 07:00 36.4 C L 68 14 81/54 L 97 04/09/23 06:00 36.7 C 63 14 75/46 L 97 04/09/23 05:00 36.4 C 74 18 61/41 L 98 04/09/23 04:30 36.6 C 72 18 83/55 L 97 04/09/23 04:15 36.5 C 67 16 77/48 L 97 04/09/23 03:55 36.6 C 71 16 71/42 L 97 O2 Del Method 04/09/23 11:41 Room Air 04/09/23 08:08 Room Air 04/09/23 07:00 04/09/23 06:00 04/09/23 05:00 04/09/23 04:30 04/09/23 04:15 04/09/23 03:55 Laboratory Results Abnormal lab results 04/08/23 04/08/23 04/08/23 Range/Units 14:00 14:00 23:05 RBC 3.12 L (4.20-5.40) M/uL Hgb 9.3 L 6.9 L* (12.0-16.0) g/dl Hct 30.4 L 23.0 L (37.0-47.0) % MCV 71.5 L 73.7 L (80.0-100.0) fL MCH 21.9 L 22.1 L (25.0-34.0) pg MCHC 30.6 L 30.0 L (32.0-36.0) g/dL RDW Std Deviation 47.9 H (36.4-46.3) fL RDW Coeff of Quoc 17.9 H 18.1 H (11.5-14.5) % Plt Count 461 H (130-400) K/uL MPV 9.3 L 8.8 L (9.4-12.4) fL Neut # (Auto) 6.78 H (1.40-6.50) K/uL Lymph # (Auto) 0.46 L (1.2-3.4) K/uL Ferry # (Auto) 0.65 H (0.11-0.59) K/uL Sodium 133 L (136-145) mmol/L Creatinine (0.6-1.2) mg/dl BUN/Creatinine Ratio 30.9 H (10-20) Calcium 8.3 L (8.6-10.3) mg/dl Magnesium (1.7-2.4) mg/dl Unsaturated IBC (155-355) mcg/dl AST 5 L (13-39) U/L ALT 4 L (7-52) U/L Total Protein (6.0-8.3) gm/dl Albumin 2.5 L (3.4-5.0) gm/dl Albumin/Globulin Ratio 0.7 L (0.9-2) Crossmatch 04/08/23 04/09/23 04/09/23 Range/Units 23:05 00:03 09:48 RBC 4.06 L (4.20-5.40) M/uL Hgb 7.2 L 9.6 L (12.0-16.0) g/dl Hct 24.3 L 30.8 L (37.0-47.0) % MCV 75.9 L (80.0-100.0) fL MCH 23.6 L (25.0-34.0) pg MCHC 31.2 L (32.0-36.0) g/dL RDW Std Deviation 51.1 H (36.4-46.3) fL RDW Coeff of Quoc 18.6 H (11.5-14.5) % Plt Count (130-400) K/uL MPV 8.8 L (9.4-12.4) fL Neut # (Auto) (1.40-6.50) K/uL Lymph # (Auto) 0.80 L (1.2-3.4) K/uL Ferry # (Auto) 0.61 H (0.11-0.59) K/uL Sodium (136-145) mmol/L Creatinine (0.6-1.2) mg/dl BUN/Creatinine Ratio (10-20) Calcium (8.6-10.3) mg/dl Magnesium (1.7-2.4) mg/dl Unsaturated IBC (155-355) mcg/dl AST (13-39) U/L ALT (7-52) U/L Total Protein (6.0-8.3) gm/dl Albumin (3.4-5.0) gm/dl Albumin/Globulin Ratio (0.9-2) Crossmatch See Detail 04/09/23 Range/Units 09:48 RBC (4.20-5.40) M/uL Hgb (12.0-16.0) g/dl Hct (37.0-47.0) % MCV (80.0-100.0) fL MCH (25.0-34.0) pg MCHC (32.0-36.0) g/dL RDW Std Deviation (36.4-46.3) fL RDW Coeff of Quoc (11.5-14.5) % Plt Count (130-400) K/uL MPV (9.4-12.4) fL Neut # (Auto) (1.40-6.50) K/uL Lymph # (Auto) (1.2-3.4) K/uL Ferry # (Auto) (0.11-0.59) K/uL Sodium 135 L (136-145) mmol/L Creatinine 0.58 L (0.6-1.2) mg/dl BUN/Creatinine Ratio 29.3 H (10-20) Calcium 8.0 L (8.6-10.3) mg/dl Magnesium 1.5 L (1.7-2.4) mg/dl Unsaturated IBC < 55 L (155-355) mcg/dl AST 5 L (13-39) U/L ALT 3 L (7-52) U/L Total Protein 5.3 L (6.0-8.3) gm/dl Albumin 2.4 L (3.4-5.0) gm/dl Albumin/Globulin Ratio 0.8 L (0.9-2) Crossmatch Diagnostic Findings Abdomen/Pelvis CT 04/08/23 14:[address] WITHOUT CONTRAST CT DOSE: 478.72 mGy.cm HISTORY: Acute nausea and vomiting vomiting, no colostomy output,?sbo TECHNIQUE: Multiaxial CT images of the abdomen and pelvis were performed without contrast. A dose lowering technique was utilized adhering to the principles of ALARA. COMPARISON STUDY: 02/23/2023 FINDINGS: Limited exam without the use of IV contrast. Decreased attenuation of the cardiac blood pool suggestive of anemia. Clear lung bases. No pneumatosis or pneumoperitoneum. The spleen measures 13.7 cm in length. Unremarkable pancreas, gallbladder and adrenal glands. Focal fatty infiltration of the left hepatic lobe adjacent to the falciform ligament again noted. Liver is otherwise unremarkable. Unremarkable kidneys. No hydronephrosis. Urinary bladder wall thickening with partial distention. Unremarkable uterus. Septated cystic left ovarian mass measures up to 7.6 x 4.9 cm, previously 11.9 x 9.3 cm. Posterior mural nodular focus measures 3.9 cm which appears new versus change from the prior study where there is a 1.7 cm mural nodule present. No abdominal aortic aneurysm or new lymphadenopathy. Postoperative changes of subtotal colectomy with right lower quadrant ileostomy and rectal pouch. 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 Circumferential wall thickening of the anus. Several loops of small lisa l demonstrate air-fluid levels and are dilated measuring up to approximately 4 cm. Borderline enlarged mesenteric lymph nodes measure up to 11 mm., Stable Interloop edema with trace abdominal pelvic ascites. Several loops of small bowel demonstrate circumferential wall thickening. Transitioned decompressed loops again noted within the left lower abdomen. Unremarkable soft tissues. No acute fracture. IMPRESSION: 1. Limited exam without the use of contrast. Prior subtotal colectomy with right lower quadrant ileostomy and rectal pouch formation. 2. Small bowel obstruction is similar in appearance to the study from 02/23/2023, likely with transition point in the left lower quadrant. 3. Interloop edema with small volume of abdominal pelvic ascites. 4. Several borderline enlarged mesenteric lymph nodes may be reactive. 5. 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 6. Complex cystic left adnexal mass has decreased in size from prior with possible increased size of a mural nodule versus intralesional hemorrhage. Attention at follow-up recommended. 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 ACT 112: Negative or not required by law. The above report was generated using voice recognition software. It may contain grammatical, syntax or spelling errors. Electronically signed by: Renny Colon M.D. 04/08/2023 3:30 PM PG Care Time/CCT Total # of Minutes Spent Total Time Spent with Patient: Total time spent is greater than 50% in coordination of care (as documented) at patient's floor/unit and/or counseling patient: Coding Level of Care Code 56204 SUB INP/OBS CARE 235MIN Diagnoses Small bowel obstruction K56.609 Crohn disease K50.90 Iron deficiency anemia D50.9 Severe protein-calorie malnutrition E43 Lesion of ovary N83.9
[2023-04-09 19:18] LABS: Appearance Urine Cloudy (Clear); Bilirubin Urine 3+ (Negative); Blood Urine 2+ (Negative); Color Urine Brown; Glucose Urine UA Negative (Negative); Ketones Urine 1+ (Negative); Leukocyte Esterase Urine 3+ (Negative); Nitrite Urine Negative (Negative); Protein Urine 3+ (Negative); Specific Gravity Urine 1.025 (1.000-1.030); Urobilinogen Urine Negative (Negative)
[2023-04-09 19:25] LABS: Bacteria Urine 4+ (Negative)
[2023-04-09 19:26] LABS: Epithelial Cell Urine 0-5 /lpf (0-5)
--- NOTE | 2023-04-10 05:50 | Electrocardiogram Report ---
Test Reason : Blood Pressure : / mmHG Vent. Rate : 086 BPM Atrial Rate : 086 BPM P-R Int : 186 ms QRS Dur : 076 ms QT Int : 370 ms P-R-T Axes : 061 066 077 degrees QTc Int : 442 ms Normal sinus rhythm Septal infarct (cited on or before 21-JUL-2015) Abnormal ECG When compared with ECG of 24-SEP-2022 16:01, QRS axis Shifted right Confirmed by Beltran Aragon ([id number]) on 04/10/2023 5:50:07 AM Referred By: REFERRED SELF Confirmed By:Beltran Aragon
[2023-04-10] MEDS: buprenorphine HCL 8 MG SUBL SL SCH (08:19)
--- NOTE | 2023-04-10 09:35 | Surgery Progress Note ---
I saw and examined this patient today and I agree with the plan. Date of Service April 10, 2023 Assessment & Plan (1) Small bowel obstruction: Plan: Patient here with n/v/abdominal pain with CT concerning for SBO She is feeling much better today and self reports + ileostomy output. She is hungry. Has been ambulating no issues Abdomen is soft with improved LLQ discomfort Labs this AM are pending.. She remains with asymptomatic hypotension. she did receive 1u pRBC yesterday AM We will advance diet to clears and see how she fairs Will need close follow up at [place] for further workup/plans of her ovarian mass Admission and Anticipated Discharge Date Admission Date: April 08, 2023 Subjective Patient states she is feeling much better. Pain is improved and she is able to ambulate the halls without issues. Denies nausea/vomiting. Ostomy output with gas and stool. Reports hunger. Denies dizziness/lightheadedness. Physical Exam Physical Exam: awake/alert, no distress Respiratory: normal respiratory effort Gastrointestinal (Abdomen): Inspection/Auscultation: abdomen not distended Percussion/Palpation: + abdomen tender (llq discomfort improved) and abdomen soft ostomy with opaque bag but appears to have a small amount of liquid stool in bag Results & Data Vital Signs (Past 12 Hours) Vital Signs Temp Pulse Resp BP Pulse Ox O2 Del Method 04/10/23 07:44 36.4 C L 61 18 82/56 L 97 Room Air 04/10/23 03:52 36.8 C 65 18 80/49 L 97 Room Air 04/09/23 23:41 36.6 C 68 18 94/62 L 98 Room Air PG Care Time/CCT Total # of Minutes Spent Total Time Spent with Patient: Total time spent is greater than 50% in coordination of care (as documented) at patient's floor/unit and/or counseling patient: Coding Level of Care Code 33735 SUB INP/OBS CARE 11/28MIN Diagnoses Small bowel obstruction K56.609
--- NOTE | 2023-04-10 09:47 | Hospitalist Progress Note ---
Date of Service April 10, 2023 Assessment & Plan (1) Small bowel obstruction: Plan: Will defer fluids now in favor of clear liquid diet, advance as tolerated Asked patient to get info for [facility] provider, so we can discuss regarding plan for follow up as patient missed an appointment today at [facility] Continue analgesics as needed NGT deferred at this time General surgery consulted and following (2) Crohn disease: Plan: Patient reports stable; not on any active treatment for this (3) Iron deficiency anemia: Plan: Worsening microcytosis on labs. Suspect nutritional. 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 (4) Severe protein-calorie malnutrition: Plan: Consult packing room worker appreciated (5) Lesion of ovary: Plan: Follow up at [facility] - reportedly recently performed aspiration there - unknown results at time of admission, will try to get records Concern for malignancy, concurrent weight loss (though also in the setting of (6) Hypotension: Plan: subacute, has been ongoing since February, not symptomatic Nutritional support and care of SBO above Plan VTE Prophylaxis - low risk Diet - NPO Disposition - continue med/tele Admission and Anticipated Discharge Date Admission Date: April 08, 2023 Subjective Tolerating clears well. Worried because for last 2 months has not been able to escalate diet past full liquids/pudding/jello/mashed potatoes. Has had di fficulty with seeing someone locally because "since her surgery was done in [place], nobody will touch me". Review of Systems Review of Systems: All systems reviewed & are unremarkable except as noted in Subjective Physical Exam Constitutional: WD/WN, vitals as above Respiratory: normal respiratory effort, lungs clear to auscultation Cardiovascular: RRR, no murmur, no edema Gastrointestinal (Abdomen): normal bowel sounds, some small amount of stool in ostomy, mild abdominal tenderness without rebound or guarding Skin: no rashes, warm and dry Psychiatric: A+Ox3, euthymic affect Results & Data Results & Data Vital Signs (Past 12 Hours) Vital Signs Temp Pulse Resp BP Pulse Ox O2 Del Method 04/10/23 07:44 36.4 C L 61 18 82/56 L 97 Room Air 04/10/23 03:52 36.8 C 65 18 80/49 L 97 Room Air 04/09/23 23:41 36.6 C 68 18 94/62 L 98 Room Air PG Care Time/CCT Total # of Minutes Spent Total Time Spent with Patient: Total time spent is greater than 50% in coordination of care (as documented) at patient's floor/unit and/or counseling patient: Coding Level of Care Code 87783 SUB INP/OBS CARE 3/50MIN Diagnoses Small bowel obstruction K56.609 Crohn disease K50.90 Iron deficiency anemia D50.9 Severe protein-calorie malnutrition E43 Lesion of ovary N83.9 Hypotension I95.9
[2023-04-10] MEDS: PANTOprazole 40 MG in SYRINGE 0 ML IV SCH (10:51)
[2023-04-10] MEDS: LACTATED RINGER'S 1,000 ML IV SCH ×2 (10:51→22:48)
[2023-04-10] MEDS: buprenorphine HCL 2 MG SUBL SL SCH ×2 (11:25→22:14)
[2023-04-10 11:51] LABS: Basophils # (auto) 0.02 K/uL (0-0.2); Basophils % (auto) 0.4 %; Eosinophils # (auto) 0.07 K/uL (0-0.50); Eosinophils % (auto) 1.4 %; Hematocrit (blood only) 30.2 % (37.0-47.0); Hemoglobin 9.2 g/dl (12.0-16.0); Immature Granulocytes # (auto) 0.04 K/uL (0.01-0.20); Immature Granulocytes % (auto) 0.8 %; Lymphocytes # (auto) 0.75 K/uL (1.2-3.4); Lymphocytes % (auto) 14.6 %; Mean Corpuscular Hemoglobin 23.4 pg (25.0-34.0); Mean Corpuscular Hgb Conc 30.5 g/dL (32.0-36.0); Mean Corpuscular Volume 76.8 fL (80.0-100.0); Mean Platelet Volume 8.6 fL (9.4-12.4); Monocytes # (auto) 0.55 K/uL (0.11-0.59); Monocytes % (auto) 10.7 %; Neutrophils # (auto) 3.72 K/uL (1.40-6.50); Neutrophils % (auto) 72.1 %; Platelet Count 290 K/uL (130-400); RDW Coefficient of Variation 18.9 % (11.5-14.5); RDW Standard Deviation 52.5 fL (36.4-46.3); Red Blood Count 3.93 M/uL (4.20-5.40); White Blood Count 5.15 K/ul (4.8-10.8)
[2023-04-10 12:07] LABS: BUN Creatinine Ratio 27.6 (10-20); Calcium 7.8 mg/dl (8.6-10.3); Creatinine Clr Calc Pharmacy 85.3 ml/min; Est GFR (African American) 134.6 ml/min; Est GFR (Non-African American) 116.1 ml/min; Potassium 3.5 mmol/L (3.5-5.1)
[2023-04-10 19:59] LABS: Prealbumin 5.5 mg/dl (20-40)
[2023-04-11] MEDS: buprenorphine HCL 8 MG SUBL SL SCH (08:07)
--- NOTE | 2023-04-11 08:31 | Hospitalist Progress Note ---
Date of Service April 11, 2023 Assessment & Plan (1) Small bowel obstruction: Plan: Diet advanced to low fiber diet Asked patient to get info for [facility] provider, so we can discuss regarding plan for follow up as patient missed an appointment today at [facility], awaiting information to help schedule Continue analgesics as needed NGT deferred at this time General surgery consulted and following (2) Crohn disease: Plan: Patient reports stable; not on any active treatment for this (3) Iron deficiency anemia: Plan: Worsening microcytosis on labs. Suspect nutritional. No melena or bright red blood in stool FOB negative B12 and folate normal Transferrin saturation low, will give Venofer 300 mg IV x1 (4) Severe protein-calorie malnutrition: Plan: With low albumin and prealbumin, patient is 38.7 kg with a BMI of 15.6, cachectic appearing Also with dependent edema, due to low serum protein With reported weight loss of around 20 pounds in the last 2 months due to recurrent SBO, also undergoing evaluation for concerning ovarian mass Consult micro paleontologist appreciated (5) Lesion of ovary: Plan: Follow up at [facility] - reportedly recently performed aspiration there - unknown results at time of admission, will try to get records Concern for malignancy, concurrent weight loss (though also in the setting of recurrent SBO) (6) Hypotension: Plan: Subacute, has been ongoing since February, not symptomatic Nutritional support and care of SBO above Sharad [email or web address] added Plan VTE Prophylaxis - low risk, ambulating on demand Diet - NPO Disposition - continue med/tele Admission and Anticipated Discharge Date Admission Date: April 08, 2023 Subjective No acute events overnight, does report some bilateral lower extremity swelling but otherwise no complaints. Does not have abdominal pain at this time. Very nervous about escalating diet, but did tolerate mashed potatoes thinned out with cream of chicken soup without any issues. She does note output from her ostomy. Denies chest pain or shortness of breath. Review of Systems Review of Systems: All systems reviewed & are unremarkable except as noted in Subjective Physical Exam Constitutional: WD/WN, vitals as above Respiratory: normal respiratory effort, lungs clear to auscultation Cardiovascular: RRR, no murmur, no edema Gastrointestinal (Abdomen): normal bowel sounds, some stool in ostomy, no abdominal tenderness without rebound or guarding Skin: no rashes, warm and dry Psychiatric: A+Ox3, euthymic affect Results & Data Results & Data Vital Signs (Past 12 Hours) Vital Signs Temp Pulse Resp BP Pulse Ox O2 Del Method 04/11/23 07:52 36.6 C 55 L 18 92/63 L 100 Room Air 04/11/23 04:00 36.5 C 63 18 97/65 L 99 Room Air 04/10/23 23:00 36.7 C 68 18 97/65 L 99 Room Air PG Care Time/CCT Total # of Minutes Spent Total Time Spent with Patient: Total time spent is greater than 50% in coordination of care (as documented) at patient's floor/unit and/or counseling patient: Coding Level of Care Code 41734 SUB INP/OBS CARE 3/50MIN Diagnoses Small bowel obstruction K56.609 Crohn disease K50.90 Iron deficiency anemia D50.9 Severe protein-calorie malnutrition E43 Lesion of ovary N83.9 Hypotension I95.9
[2023-04-11 08:49] LABS: Hematocrit (blood only) 33.5 % (37.0-47.0); Mean Corpuscular Hgb Conc 29.9 g/dL (32.0-36.0); Mean Platelet Volume 8.5 fL (9.4-12.4); Platelet Count 332 K/uL (130-400); RDW Coefficient of Variation 19.5 % (11.5-14.5); RDW Standard Deviation 53.9 fL (36.4-46.3); Red Blood Count 4.35 M/uL (4.20-5.40); White Blood Count 4.81 K/ul (4.8-10.8)
--- NOTE | 2023-04-11 09:40 | Surgery Progress Note ---
Date of Service April 11, 2023 Assessment & Plan (1) Small bowel obstruction: Plan: We will advance her diet this am to low fiber, soft. Leg swelling, patient questioning a very small dose of Lasix as she has used in the past. Likely secondary to blood transfusion and fluids. Will leave this decision and timing to medicine considering her soft blood pressures. She is progressing well from a surgical standpoint. H/H stable. Will see her tomorrow. Admission and Anticipated Discharge Date Admission Date: April 08, 2023 Subjective Patient was seen and examined this am. She feels even more improved than she felt yesterday. States if it had not been for some LE swelling she started experiencing today, she would feel great! She says she has hardly any abdominal pain, no N/V and her ileostomy is still funtioning. Physical Exam Constitutional: cooperative and comfortable; no acute distress and not ill appearing Respiratory: normal respiratory effort; no respiratory distress, no labored breathing and does not use accessory muscles Gastrointestinal (Abdomen): Inspection/Auscultation: abdomen not distended Percussion/Palpation: abdomen soft; abdomen nontender, no guarding and abdomen not rigid Neurologic: moves all extremities; no focal motor deficits, + not awake and not confused Results & Data Vital Signs (Past 12 Hours) Vital Signs Temp Pulse Resp BP Pulse Ox O2 Del Method 04/11/23 07:52 36.6 C 55 L 18 92/63 L 100 Room Air 04/11/23 04:00 36.5 C 63 18 97/65 L 99 Room Air 04/10/23 23:00 36.7 C 68 18 97/65 L 99 Room Air PG Care Time/CCT Total # of Minutes Spent Total Time Spent with Patient: Total time spent is greater than 50% in coordination of care (as documented) at patient's floor/unit and/or counseling patient: Coding [place] [address] SUB INP/OBS CARE 125MIN Patient Type Established History Problem Focused Exam Problem Focused Medical Decision Making Straight Forward Diagnoses Small bowel obstruction K56.609
[2023-04-11 09:57] LABS: Calcium 7.7 mg/dl (8.6-10.3); Potassium 3.4 mmol/L (3.5-5.1)
[2023-04-11 10:02] LABS: Creatinine Clr Calc Pharmacy 92.3 ml/min; Est GFR (African American) 141.3 ml/min; Est GFR (Non-African American) 121.9 ml/min
[2023-04-11] MEDS: PANTOprazole 40 MG in SYRINGE 0 ML IV SCH (10:34)
[2023-04-11] MEDS: buprenorphine HCL 2 MG SUBL SL SCH ×2 (11:35→21:11)
[2023-04-11] MEDS ORDERED: IRON SUCROSE 300 MG in SODIUM CHLORIDE 0.9% 250 ML IV ONE (18:30)
[2023-04-11] MEDS ORDERED: POTASSIUM CHLORIDE PWD 20 MEQ PACK PO SCH (18:45)
[2023-04-12 06:38] LABS: BUN Creatinine Ratio 12.8 (10-20); Calcium 7.8 mg/dl (8.6-10.3); Creatinine Clr Calc Pharmacy 98.2 ml/min; Est GFR (African American) 144.2 ml/min; Est GFR (Non-African American) 124.4 ml/min; Magnesium 1.5 mg/dl (1.7-2.4); Phosphorus 1.7 mg/dl (2.5-4.9); Potassium 3.3 mmol/L (3.5-5.1)
--- NOTE | 2023-04-12 08:25 | Surgery Progress Note ---
I have seen and examined this patient this am. She may be discharged from a surgical standpoint once deemed medically cleared, with outpatient follow up to her colorectal surgeon in [place]. Please re-consult surgery as needed. Date of Service April 12, 2023 Assessment & Plan (1) Small bowel obstruction: Plan: Patient is feeling well. Appears to be recovering well from SBO with supportive care Continue on a low fiber diet as tolerates. She is having + bowel function and denies abdominal symptoms She will need close follow up in regards to her L pelvic mass We will follow peripherally, but please call with any questions/concerns Admission and Anticipated Discharge Date Admission Date: April 08, 2023 Subjective Patient is feeling well. Says she is mostly doing full liquids but tolerating this well. Denies abdominal pain/nausea/vomiting. Still having + ostomy output. Physical Exam Physical Exam: awake/alert, no distress Respiratory: normal respiratory effort Gastrointestinal (Abdomen): Inspection/Auscultation: abdomen not distended Percussion/Palpation: abdomen soft; abdomen nontender (llq discomfort improved) Results & Data Vital Signs (Past 12 Hours) Vital Signs Temp Pulse Resp BP BP Pulse Ox O2 Del Method 04/12/23 07:49 36.7 C 69 15 79/58 L 82/58 L 98 Room Air 04/12/23 04:00 36.8 C 64 18 94/65 L 98 Room Air 04/11/23 23:00 36.7 C 71 18 89/63 L 97 Room Air PG Care Time/CCT Total # of Minutes Spent Total Time Spent with Patient: Total time spent is greater than 50% in coordination of care (as documented) at patient's floor/unit and/or counseling patient: Coding Level of Care Code 37193 SUB INP/OBS CARE 25MIN Diagnoses Small bowel obstruction K56.609
--- NOTE | 2023-04-12 08:51 | Discharge Summary ---
Discharge Summary Date of Service April 12, 2023 Admission HPI Per Admitting Provider Elsie Black is a 37 year old female with recurrent small bowel obstruction, ovarian mass (being worked up at [facility]) and Crohn's disease who presents to the ER with 2 days of worsening abdominal pain, nausea and vomiting. Pain in left lower quadrant, no radiation, worse on palpation. Possibly exacerbated after eating eggs. Reduced output from her ileostomy. No melena or bright red blood in stool. Admission Exam Per Admitting Provider Constitutional: well developed; + not well nourished and no acute distress Eyes: + anicteric sclerae; normal pupil size ENMT: Mouth: + dry oral mucous membranes Neck: trachea midline, no thyromegaly Respiratory: normal respiratory effort, lungs clear to auscultation Cardiovascular: RRR, no murmur, no edema Gastrointestinal (Abdomen): Inspection/Auscultation: abdomen normal to inspection; abdomen not distended Percussion/Palpation: + abdomen tender and abdomen soft; no guarding and abdomen not rigid Musculoskeletal: Severe chronic muscle wasting Skin: no rashes, warm and dry Neurologic: moves all extremities and awake; not confused Psychiatric: A+Ox3, euthymic affect Genitourinary: no CVA tenderness Principal Dx & Hospital Course #1 = Principal Diagnosis (1) Small bowel obstruction: Diet advanced to low fiber diet, tolerated well without issues Dr. Chou (patient's colorectal surgeon through [facility]) contacted as patient missed appointment while admitted, records also sent to them for continuity (2) Crohn disease: Patient reports stable; not on any active treatment for this (3) Iron deficiency anemia: Microcytosis on labs, likely nutritional. No melena or bright red blood in stool FOB negative B12 and folate normal Transferrin saturation low, recommended IV Venofer, patient declined but has infusions with PCP, recommend follow up in this regard (4) Severe protein-calorie malnutrition: With low albumin and prealbumin, patient is 38.7 kg with a BMI of 15.6, cachectic appearing Also with dependent edema, due to low serum protein With reported weight loss of around 20 pounds in the last 2 months due to recurrent SBO, and also undergoing evaluation for concerning ovarian mass Consult dry food products mixer appreciated, provided information for SBO diet and meal supplement shakes (5) Lesion of ovary: Follow up at [facility] - reportedly recently performed aspiration there - unknown results at time of admission, unable to get records prior to discharge Concern for malignancy, concurrent weight loss (though also in the setting of recurrent SBO) (6) Hypotension: Subacute, has been ongoing since February, not symptomatic Nutritional support and care of SBO above Sharad deras added Recommend avoidance of Lasix Plan Dispo: discharge home, follow up with PCP and [facility] providers Discharge Exam Constitutional Well-developed, thin, no acute distress Gastrointestinal (Abdomen) Abdomen soft, nontender, bowel sounds noted, some liquid stool noted in ostomy bag Psychiatric A+Ox3, euthymic affect Updated Medication List Medication Instructions Recorded Confirmed Type acetaminophen 500 mg tablet 1,000 mg PO Q6H PRN Pain 08/26/22 04/09/23 History (Tylenol Extra Strength) cyanocobalamin (vitamin B-12) 1,000 mcg IM MO 08/26/22 04/09/23 History 1,000 mcg/mL injection solution epinephrine 0.3 mg/0.3 mL 0.3 mg IM Q4H PRN Allergic Reaction 08/26/22 04/09/23 History injection, auto-injector fluticasone fur. 200 mcg-umeclid 1 inh inhalation DAILY 08/26/22 04/09/23 History 62.5 mcg-vilant 25 mcg inhalat.powder (Trelegy Ellipta) magnesium oxide 400 mg (241.3 mg 400 mg PO DAILY 08/26/22 04/09/23 History magnesium) tablet potassium chloride 20 mEq 20 meq PO DAILY 08/26/22 04/09/23 History tablet,extended release(part/cryst) buprenorphine HCl 8 mg sublingual 8 mg sublingual BID 04/08/23 04/09/23 History tablet pediatric [id number] 1 tab PO QAM #0 tabs 04/12/23 Rx (Flintstones Complete (iron) chewable tablet) thiamine HCl (vitamin B1) 100 mg 100 mg PO QAM 30 days #30 tabs 04/12/23 Rx tablet Hospital Stay Data Consultations 04/08/23 15:48 ED Decision to Admit Stat 04/08/23 20:43 Consult General Surgery Routine Diagnostic Imagining Performed 04/08/23 14:08 CT abd pelvis wo con Stat Discharge Instructions Given to Patient (Per Discharging Provider) You were admitted to the hospital for evaluation and management of a small bowel obstruction. With time, and bowel rest, your symptoms improved and we were able to get you up to a soft semiliquid diet. We recommend continuing this until you are followed up with your [facility] providers. You were also prescribed a multivitamin, and thiamine. These are both critical in helping with wound healing and nutrition given difficulty with eating substantive food. Nutrition also saw you, and recommended things like shakes and ileostomy diet. Please follow-up with your primary care provider regarding your recurrent small bowel obstructions, your iron deficiency, and following up regarding your ovarian mass. Regarding Lasix, I highly highly recommend that you do not take Lasix given your low blood pressures. The edema in your legs is due to malnutrition, and if you can get your malnutrition under better control with multivitamins, shakes, and diet, that fluid in your legs will improve. I also recommend Sharad compression stockings for leg swelling. They can also help with low blood pressures. Dr. Chou's office was called, and they were made aware that you need a new appointment. You should receive a call from them. If you do not get a call, please call the number that you have on file in order to get a new appointment as soon as possible. Your records from this hospitalization including your CT imaging are also going to be sent to Dr. Chou's office so that they are aware of your hospitalization and can look at your imaging studies. Total Time Total Time Spent Total Time Spent (In Minutes): 40 minutes Coding Level of Care Code 75496 INP/OBS DISCH >30 MIN Diagnoses Small bowel obstruction K56.609 Crohn disease K50.90 Iron deficiency anemia D50.9 Severe protein-calorie malnutrition E43 Lesion of ovary N83.9 Hypotension I95.9
[2023-04-12] MEDS ORDERED: POTASSIUM PHOS 3 MMOL/1 ML INFUSION IV STA (08:59)
[2023-04-12] MEDS ORDERED: MULTIVITAMIN CHEWABLE TAB PO SCH (09:00)
[2023-04-12] MEDS ORDERED: THIAMINE HCL 100 MG TAB PO SCH (09:00)
[2023-04-12] MEDS ORDERED: POTASSIUM PHOSPHATE 21 MMOL in SODIUM CHLORIDE 0.9% 500 ML IV ONE (09:15)
[2023-04-12] MEDS: MAGNESIUM SULFATE / D5W 1 GM/100 ML BAG IV SCH ×2 (10:00→11:50)
[2023-04-12] MEDS: buprenorphine HCL 8 MG SUBL SL SCH (10:00)
[2023-04-12] MEDS: PANTOprazole 40 MG in SYRINGE 0 ML IV SCH (11:51)
[2023-04-12] MEDS: buprenorphine HCL 2 MG SUBL SL SCH (11:55)
[2023-04-12] MEDS ORDERED: POTASSIUM CHLORIDE CRTAB 20 MEQ TABCR PO ONE (12:00)
== END 2023-04-12 14:41 | disposition home or self-care (01) | DRG 388 ==
LOC: ED 13:59 → SUATTDRO 18:07 → 2W 18:07

== ENCOUNTER 2023-07-06 11:12 | Inpatient (IN) ==
[2023-07-06] MEDS ORDERED: SODIUM CHLORIDE 0.9% 1,000 ML IV ONE ×2 (11:51→12:55)
--- NOTE | 2023-07-06 11:55 | Emergency Department Note ---
Impression & Plan Acute hypotension, Shortness of breath, Acute dehydration, Hypomagnesemia ED Provider Note HISTORY OF PRESENT ILLNESS: Patient is a 37-year-old female presenting with shortness of breath and palpitations. Patient reports symptoms have been ongoing for the last 3 weeks, but more notably in the last week. Reports she gets like this when her potassium and magnesium levels are low. She denies any chest pain. Reports fevers up to 103 over the last 3 weeks. Denies any dysuria or hematuria. Denies any nausea or vomiting. ROS: as above PHYSICAL EXAM: Constitutional: Patient appears in no acute distress. HENT: Head: Normocephalic and atraumatic. Eyes: EOMI, PERRL Mouth/Throat: Mucous membranes moist. Neck: Trachea midline. Neck supple. Cardiovascular: Tachycardic with regular rhythm. No murmurs, rubs or gallops. Intact distal pulses. Pulmonary/Chest: No respiratory distress. Breath sounds clear and equal bilaterally. No wheezes or rales. Abdominal: Abdomen soft, no tenderness, rebound or guarding. Ileostomy in place Musculoskeletal: No edema, tenderness or deformity noted. Skin: Warm and dry. No rash, erythema, pallor or cyanosis Psychiatric: Appropriate mood and affect for situation. Neurological: Alert and keenly responsive. CN II-XII grossly intact, moving all extremities equally and fully. MDM: - Vitals signs showed hypotension and tachycardia - History obtained via patient. Patient presents with shortness of breath and palpitations. Patient reports symptoms been ongoing the last 3 weeks but more notably in the last week. She reports she gets like this when her electrolytes are abnormal. Denies any chest pain. Reports fevers up to 103 over the last 3 weeks. Denies any dysuria or hematuria. - Chronic conditions affecting care: Crohn's disease - Differential diagnoses include, but are not limited to: Electrolyte abnormality; ACS; PE; pneumonia; viral syndrome; sepsis - Order placed for continuous cardiac monitoring. At this time, monitor showed rate of 81 bpm with normal sinus rhythm, per my interpretation. - External medical records reviewed. - EKG reviewed by myself showed normal sinus rhythm. Rate tachycardic at 106 bpm. QTc 406. No acute ischemic changes. - Laboratory workup interpreted by myself showed normal WBC; chronic anemia (Hgb 9.2); elevated dimer (570); hyponatremia (Na 131); normal potassium; elevated lactate (3.1); chronic hypocalcemia; slight hypomagnesemia (Mg 1.6); normal procalcitonin - Patient given 2L NS in ER. Her blood pressures remained hypotensive. However, repeat lactate within normal limits fluid resuscitation. - CXR negative for pneumonia, per my interpretation - CTA chest negative for PE. - CT abdomen/pelvis with IV contrast noted to have findings concerning for possible cystitis. - On review of patient's recent hospitalist progress note from April 2023, her blood pressures run in the 90s systolic. - IV albumin was ordered for further fluid resuscitation - Random cortisol level drawn. Patient has not been on any recent steroids. She was given 125 mg of IV Solu-Medrol. - Discussion was had with professor of social work about patient's case and need for admission - Hospitalist consulted for admission - [facility] ASSESSMENT AND PLAN: Diagnosis: hypotension; shortness of breath; palpitations; dehydration; hypomagnesemia; hyponatremia Plan: admit Past Med/Surg History Medical History Crohn disease Crohn's disease of colon with fistula Endometriosis History of MRSA infection "per records" Rheumatoid arthritis Surgical History H/O colectomy "total colectomy with ileoanal anastomosis 03/2006" H/O resection of large bowel multiple resections and clean outs History of rectal surgery "hundreds of fistula surgeries" S/P exploratory laparotomy endometriosis Family History Other Blood clot in vein Social History Smoking Status: Former smoker Tobacco Type: Cigarettes Second Hand Exposure: No; Do You Dip or Chew Tobacco: No; Hx Alcohol Use: No Hx Substance Use: No Preferred Language: Thai Communication Ability: Effective Hand Miter Operator Required: No Beliefs That Will Affect Care: None Current Living Situation: Family Current Living Situation Comment: Lives at home with daughter Feels Safe at Home: Yes Assistive Devices: None Allergies Allergies Allergy/AdvReac Type Severity Reaction Status Date / Time aspirin Allergy Severe ANAPHYLAXIS Unverified 04/09/23 16:11 infliximab Allergy Severe ANAPHYLAXIS Verified 04/09/23 16:11 NSAIDS (Non-Steroidal Allergy Unknown THROAT Verified 04/09/23 16:11 Anti-Inflamma SWELLING Sulfa (Sulfonamide Allergy Unknown throat Unverified 04/09/23 16:11 Antibiotics) swelling bee venom protein (honey bee) Allergy Anaphylaxis Verified 04/09/23 16:11 ketorolac [From Toradol] Allergy Swelling Verified 04/09/23 16:11 of Lip/Tongue/Throat azathioprine AdvReac Unknown MIGRAINE Verified 04/09/23 16:11 Home Meds Home Medications Medication Instructions Recorded Confirmed acetaminophen 500 mg tablet 1,000 mg PO Q6H PRN Pain 08/26/22 04/09/23 (Tylenol Extra Strength) cyanocobalamin (vitamin B-12) 1,000 mcg IM MO 08/26/22 04/09/23 1,000 mcg/mL injection solution epinephrine 0.3 mg/0.3 mL 0.3 mg IM Q4H PRN Allergic Reaction 08/26/22 04/09/23 injection, auto-injector fluticasone fur. 200 mcg-umeclid 1 inh inhalation DAILY 08/26/22 04/09/23 62.5 mcg-vilant 25 mcg inhalat.powder (Trelegy Ellipta) magnesium oxide 400 mg (241.3 mg 400 mg PO DAILY 08/26/22 04/09/23 magnesium) tablet potassium chloride 20 mEq 20 meq PO DAILY 08/26/22 04/09/23 tablet,extended release(part/cryst) buprenorphine HCl 8 mg sublingual 8 mg sublingual BID 04/08/23 04/09/23 tablet Previous Rx's Medication Instructions Recorded pediatric aakpdzgt-wqqq-epb 1 tab PO QAM #0 tabs 04/12/23 (Flintstones Complete (iron) chewable tablet) Results & Data (ED) Vital Signs Vital Signs - 24 hr 07/06/23 11:21 07/06/23 11:52 07/06/23 12:16 Temperature 36.1 C L Temperature Source Temporal Artery Scan Pulse Rate 124 H 100 H Pulse Rate [Apical] Pulse Rhythm [Apical] Pulse Strength [Apical] Respiratory Rate 16 Respiratory Effort / Characteristics Non-Labored Respiratory Depth Normal Respiratory Pattern Blood Pressure 93/68 L Blood Pressure [Right Arm] Blood Pressure Mean 76 Blood Pressure Mean [Right Arm] Blood Pressure Position [Right Arm] Pulse Oximetry 96 Oxygen Delivery Method Room Air Room Air Sepsis Recent Fever Within 48 Hours No Sepsis New/Unexplained Change in Mental Status No Sepsis Action Taken by Nursing No Action Required 07/06/23 12:25 07/06/23 13:00 07/06/23 14:00 Temperature Temperature Source Pulse Rate Pulse Rate [Apical] 108 H 79 66 Pulse Rhythm [Apical] Regular Regular Regular Pulse Strength [Apical] Respiratory Rate 18 18 18 Respiratory Effort / Characteristics Non-Labored Non-Labored Non-Labored Respiratory Depth Normal Normal Normal Respiratory Pattern Regular Regular Regular Blood Pressure Blood Pressure [Right Arm] 73/53 L 80/56 L 84/58 L Blood Pressure Mean Blood Pressure Mean [Right Arm] 59 64 66 Blood Pressure Position [Right Arm] Pulse Oximetry 98 97 97 Oxygen Delivery Method Room Air Room Air Room Air Sepsis Recent Fever Within 48 Hours Sepsis New/Unexplained Change in Mental Status Sepsis Action Taken by Nursing 07/06/23 15:03 07/06/23 15:28 07/06/23 16:18 Temperature 36.3 C L Temperature Source Oral Pulse Rate Pulse Rate [Apical] 81 57 L Pulse Rhythm [Apical] Regular Regular Pulse Strength [Apical] Normal Normal Respiratory Rate 17 Respiratory Effort / Characteristics Non-Labored Spontaneous Respiratory Depth Normal Respiratory Pattern Regular Blood Pressure Blood Pressure [Right Arm] 78/42 L 80/52 L Blood Pressure Mean Blood Pressure Mean [Right Arm] 54 61 Blood Pressure Position [Right Arm] Semi-fowlers Semi-fowlers Semi-fowlers Pulse Oximetry 99 Oxygen Delivery Method Room Air Sepsis Recent Fever Within 48 Hours Sepsis New/Unexplained Change in Mental Status Sepsis Action Taken by Nursing Laboratory Data 07/06/23 12:25 07/06/23 12:25 Lab Results 07/06/23 07/06/23 07/06/23 Range/Units 12:25 12:25 12:25 WBC 7.74 (4.8-10.8) K/ul RBC 4.28 (4.20-5.40) M/uL Hgb 9.2 L (12.0-16.0) g/dl Hct 31.1 L (37.0-47.0) % MCV 72.7 L (80.0-100.0) fL MCH 21.5 L (25.0-34.0) pg MCHC 29.6 L (32.0-36.0) g/dL RDW Std Deviation 50.4 H (36.4-46.3) fL RDW Coeff of Quoc 19.8 H (11.5-14.5) % Plt Count 534 H (130-400) K/uL MPV 8.2 L (9.4-12.4) fL Immature Gran % (Auto) 0.6 % Neut % (Auto) 80.5 % Lymph % (Auto) 12.4 % Karnes % (Auto) 5.9 % Eos % (Auto) 0.3 % Baso % (Auto) 0.3 % Neut # (Auto) 6.23 (1.40-6.50) K/uL Lymph # (Auto) 0.96 L (1.20-3.40) K/uL Karnes # (Auto) 0.46 (0.11-0.59) K/uL Eos # (Auto) 0.02 (0.00-0.50) K/uL Baso # (Auto) 0.02 (0.00-0.20) K/uL Immature Gran # (Auto) 0.05 (0.01-0.20) K/uL PT 11.7 (9.0-12.0) Seconds INR 1.1 (0.9-1.1) APTT 28.2 (21.0-31.0) Seconds PTT Ratio 1.0 D-Dimer 570 H* (0-500) ug/L FEU Sodium 131 L (136-145) mmol/L Potassium 3.6 (3.5-5.1) mmol/L Chloride 98 (98-107) mmol/L Carbon Dioxide 28 (21-32) mmol/L Anion Gap 5 (3-11) BUN 10 (6-23) mg/dl Creatinine 0.62 (0.6-1.2) mg/dl Est Cr Clr Drug Dosing Not Reportable Est GFR ( Amer) 131.6 ml/min Est GFR (Non-Af Amer) 113.6 ml/min BUN/Creatinine Ratio 16.1 (10-20) Glucose 98 (70-99(Fasting)) mg/dl Lactate (0.4-2.0) mmol/L Calcium 7.7 L (8.6-10.3) mg/dl Phosphorus 3.6 (2.5-4.9) mg/dl Magnesium 1.6 L (1.7-2.4) mg/dl Total Bilirubin 0.2 (0.2-1.0) mg/dl AST 6 L (13-39) U/L ALT 5 L (7-52) U/L Alkaline Phosphatase 104 (34-104) U/L Troponin I High Sens 3.9 (0-14) pg/ml Total Protein 5.5 L (6.0-8.3) gm/dl Albumin 2.0 L (3.4-5.0) gm/dl Globulin 3.5 (2.5-4.0) gm/dl Albumin/Globulin Ratio 0.6 L (0.9-2) Procalcitonin (0-0.5) ng/ml 07/06/23 07/06/23 07/06/23 Range/Units 12:25 12:25 14:57 WBC (4.8-10.8) K/ul RBC (4.20-5.40) M/uL Hgb (12.0-16.0) g/dl Hct (37.0-47.0) % MCV (80.0-100.0) fL MCH (25.0-34.0) pg MCHC (32.0-36.0) g/dL RDW Std Deviation (36.4-46.3) fL RDW Coeff of Quoc (11.5-14.5) % Plt Count (130-400) K/uL MPV (9.4-12.4) fL Immature Gran % (Auto) % Neut % (Auto) % Lymph % (Auto) % Karnes % (Auto) % Eos % (Auto) % Baso % (Auto) % Neut # (Auto) (1.40-6.50) K/uL Lymph # (Auto) (1.20-3.40) K/uL Karnes # (Auto) (0.11-0.59) K/uL Eos # (Auto) (0.00-0.50) K/uL Baso # (Auto) (0.00-0.20) K/uL Immature Gran # (Auto) (0.01-0.20) K/uL PT (9.0-12.0) Seconds INR (0.9-1.1) APTT (21.0-31.0) Seconds PTT Ratio D-Dimer (0-500) ug/L FEU Sodium (136-145) mmol/L Potassium (3.5-5.1) mmol/L Chloride (98-107) mmol/L Carbon Dioxide (21-32) mmol/L Anion Gap (3-11) BUN (6-23) mg/dl Creatinine (0.6-1.2) mg/dl Est Cr Clr Drug Dosing Est GFR ( Amer) ml/min Est GFR (Non-Af Amer) ml/min BUN/Creatinine Ratio (10-20) Glucose (70-99(Fasting)) mg/dl Lactate 3.1 H* 0.8 (0.4-2.0) mmol/L Calcium (8.6-10.3) mg/dl Phosphorus (2.5-4.9) mg/dl Magnesium (1.7-2.4) mg/dl Total Bilirubin (0.2-1.0) mg/dl AST (13-39) U/L ALT (7-52) U/L Alkaline Phosphatase (34-104) U/L Troponin I High Sens (0-14) pg/ml Total Protein (6.0-8.3) gm/dl Albumin (3.4-5.0) gm/dl Globulin (2.5-4.0) gm/dl Albumin/Globulin Ratio (0.9-2) Procalcitonin 0.09 (0-0.5) ng/ml Administered Medications Sodium Chloride (Nss 1000ml) 1,000 mls @ 125 mls/hr IV .Q8H STA Stop: 07/06/23 23:09 Last Admin: 07/06/23 15:29 Dose: 125 mls/hr Documented By: ROSY Discontinued Medications Sodium Chloride (Nss 1000ml) 1,000 mls @ 999 mls/hr IV .Q1H1M ONE Stop: 07/06/23 12:51 Last Infusion: 07/06/23 13:49 Dose: 0 mls/hr Documented By: Admin: 07/06/23 12:24 Dose: 999 mls/hr Documented By: SUAD Sodium Chloride (Nss 1000ml) 1,000 mls @ 999 mls/hr IV .Q1H1M ONE Stop: 07/06/23 13:55 Last Infusion: 07/06/23 14:34 Dose: 0 mls/hr Documented By: Admin: 07/06/23 13:19 Dose: 999 mls/hr Documented By: CLAUS Albumin Human (Albumin 5%) 250 mls @ 500 mls/hr IV ONE ONE Stop: 07/06/23 15:49 Last Infusion: 07/06/23 16:20 Dose: 0 mls/hr Documented By: Admin: 07/06/23 15:45 Dose: 500 mls/hr Documented By: ROSY Ioversol (Ioversol 350 Mg 125ml Prefilled Syringe) 118 ml IV ONCE ONE Stop: 07/06/23 14:43 Last Admin: 07/06/23 14:42 Dose: 118 ml Documented By: JAMIE Imaging Data Radiologist's Impression: Chest X-Ray 07/06/23 11:25 XR chest 1V portable CLINICAL HISTORY: Chest pain, nonspecific TECHNIQUE: Single frontal radiograph of the chest was obtained. Comparison: Comparison is made to chest radiograph 09/24/2022 FINDINGS: No lines and tubes are seen. The cardiomediastinal silhouette is normal. The lungs are clear. No evidence of pleural effusion or pneumothorax. IMPRESSION: No acute chest disease. ACT 112: Negative or not required by law. Electronically signed by: Rufino Donahue M.D. 07/06/2023 12:11 PM Abdomen/Pelvis CT 07/06/23 13:01 CT abd pelvis IV con only CLINICAL HISTORY: abdominal pain TECHNIQUE: Helical axial images of the abdomen and pelvis were obtained and displayed. Automated dose lowering techniques and/or adjustment according to patient size were utilized for this exam. This exam was performed with int ravenous contrast. COMPARISON: Comparison is made to CT abdomen pelvis 04/08/2023 FINDINGS: Lower chest: No acute abnormality. Liver: Focal fatty changes are noted about the falciform ligament. Gallbladder and biliary tree: The gallbladder is contracted. No intra- or e xtrahepatic biliary ductal dilation. Oral edema is noted. Pancreas: Unremarkable, no focal lesions. Spleen: Unremarkable. Adrenals: Unremarkable. Kidneys and ureters: Unremarkable. Bladder: There is thickening of the bladder with a small amount of intraluminal gas. Reproductive organs: Redemonstration of left adnexal cystic lesion. Bowel: Surgical changes of subtotal colectomy. Previously noted perianal fistulas remain present but are somewhat less conspicuous than on the prior exam. Lymph nodes Retroperitoneal: Subcentimeter lymph nodes are noted. Pelvic: Unremarkable. Mesenteric: Subcentimeter lymph nodes are noted. Peritoneum: Small amount of ascites is seen. Vessels: Unremarkable. Abdominal wall: Unremarkable. Bones: Degenerative changes in the visualized spine. IMPRESSION: 1. Nonspecific ascites and periportal edema. 2. Thickening of the bladder wall with air-fluid level, correlation with urinalysis is recommended to exclude cystitis. 3. Stable left adnexal cystic lesion. 4. Additional findings as above. ACT 112: Negative or not required by law. Electronically signed by: Rufino Donahue M.D. 07/06/2023 3:29 PM Chest CTA 07/06/23 13:27 CT angio chest PE protocol CLINICAL HISTORY: PE TECHNIQUE: Multidetector row helical CT of the chest was performed with angiographic protocol. Coronal and sagittal reformations were obtained. Coronal and sagittal MIPS were obtained from the axial data set and were submitted for review. Automated dose lowering techniques and/or adjustment according to patient size were utilized for this exam. CT DOSE: 523.38 mGy.cm Comparison: None available at the time of this dictation. FINDINGS: Lungs and pleura: Normal. Heart and pericardium: Heart size is normal. No pericardial effusion. Vessels: No evidence of pulmonary embolism. Mediastinum and robbi: Unremarkable. Chest wall and lower neck: Unremarkable. Abdomen: For findings below the diaphragm, please refer to CT of the abdomen dated the same. Bones: Unremarkable. IMPRESSION: No acute abnormality and in particular no evidence of pulmonary embolus. ACT 112: Negative or not required by law. Electronically signed by: Rufino Donahue M.D. 07/06/2023 2:59 PM Discharge Plan Visit Data Chief Complaint: Arrhythmia/Palpitations Stated Complaint: PALPITATIONS, SHORTNESS OF BREATH ED Provider: Court Jean Discharge Problem: Acute hypotension, Shortness of breath, Acute dehydration, Hypomagnesemia Forms Stand Alone Forms: [employer] Prescriptions Prescriptions: No Action acetaminophen [Tylenol Extra Strength] 500 mg Tablet 1,000 mg PO Q6H PRN (Reason: Pain) potassium chloride 20 mEq tablet,ER particles/crystals 20 meq PO DAILY magnesium oxide 400 mg (241.3 mg magnesium) tablet 400 mg PO DAILY cyanocobalamin (vitamin B-12) 1,000 mcg/mL Solution 1,000 mcg IM MO epinephrine 0.3 mg/0.3 mL Auto-Injector 0.3 mg IM Q4H PRN (Reason: Allergic Reaction) Trelegy Ellipta 200-62.5-25 mcg blister with device 1 inh INHALATION DAILY buprenorphine HCl 8 mg tablet, sublingual 8 mg SUBLINGUAL BID Rx Instructions: 8mg in AM, 4mg lunch time, 4mg in evening Flintstones Complete (iron) Tablet,Chewable 1 tab PO QAM Qty: 0 0RF Referrals Referrals: Salome Molina PA-C [Primary Care Provider] -
--- NOTE | 2023-07-06 12:13 | XRay Report ---
XR chest 1V portable CLINICAL HISTORY: Chest pain, nonspecific TECHNIQUE: Single frontal radiograph of the chest was obtained. Comparison: Comparison is made to chest radiograph 09/24/2022 FINDINGS: No lines and tubes are seen. The cardiomediastinal silhouette is normal. The lungs are clear. No evid ence of pleural effusion or pneumothorax. IMPRESSION: No acute chest disease. ACT 112: Negative or not required by law. Electronically signed by: Rufino Donahue M.D. 07/06/2023 12:11 PM
[2023-07-06 13:00] LABS: Basophils # (auto) 0.02 K/uL (0.00-0.20); Basophils % (auto) 0.3 %; Eosinophils # (auto) 0.02 K/uL (0.00-0.50); Eosinophils % (auto) 0.3 %; Hematocrit (blood only) 31.1 % (37.0-47.0); Hemoglobin 9.2 g/dl (12.0-16.0); Immature Granulocytes # (auto) 0.05 K/uL (0.01-0.20); Immature Granulocytes % (auto) 0.6 %; Lymphocytes # (auto) 0.96 K/uL (1.20-3.40); Lymphocytes % (auto) 12.4 %; Mean Corpuscular Hemoglobin 21.5 pg (25.0-34.0); Mean Corpuscular Hgb Conc 29.6 g/dL (32.0-36.0); Mean Corpuscular Volume 72.7 fL (80.0-100.0); Mean Platelet Volume 8.2 fL (9.4-12.4); Monocytes # (auto) 0.46 K/uL (0.11-0.59); Monocytes % (auto) 5.9 %; Neutrophils # (auto) 6.23 K/uL (1.40-6.50); Neutrophils % (auto) 80.5 %; Platelet Count 534 K/uL (130-400); RDW Coefficient of Variation 19.8 % (11.5-14.5); RDW Standard Deviation 50.4 fL (36.4-46.3); Red Blood Count 4.28 M/uL (4.20-5.40); White Blood Count 7.74 K/ul (4.8-10.8)
[2023-07-06 13:24] LABS: Alanine Aminotransferase 5 U/L (7-52); Albumin Globulin Ratio 0.6 (0.9-2); Alkaline Phosphatase 104 U/L (34-104); Anion Gap 5 (3-11); Aspartate Aminotransferase 6 U/L (13-39); BUN Creatinine Ratio 16.1 (10-20); Bilirubin,Total 0.2 mg/dl (0.2-1.0); Blood Urea Nitrogen 10 mg/dl (6-23); Calcium 7.7 mg/dl (8.6-10.3); Carbon Dioxide 28 mmol/L (21-32); Chloride 98 mmol/L (98-107); Est GFR (African American) 131.6 ml/min; Est GFR (Non-African American) 113.6 ml/min; Globulin 3.5 gm/dl (2.5-4.0); Glucose 98 mg/dl (70-99(Fasting)); Magnesium 1.6 mg/dl (1.7-2.4); Phosphorus 3.6 mg/dl (2.5-4.9); Potassium 3.6 mmol/L (3.5-5.1); Sodium 131 mmol/L (136-145); Total Protein 5.5 gm/dl (6.0-8.3)
[2023-07-06 13:25] LABS: INR 1.1 (0.9-1.1); Partial Thromboplastin Time 28.2 Seconds (21.0-31.0); Prothrombin Time 11.7 Seconds (9.0-12.0)
[2023-07-06 13:26] LABS: D Dimer 570 ug/L FEU (0-500)
[2023-07-06 13:30] LABS: Troponin I High Sensitivity 3.9 pg/ml (0-14)
[2023-07-06] MEDS ORDERED: IOVERSOL 350 MG 125mL Prefilled Syringe IV ONE (14:42)
--- NOTE | 2023-07-06 15:00 | CT Scan Report ---
CT angio chest PE protocol CLINICAL HISTORY: PE TECHNIQUE: Multidetector row helical CT of the chest was performed with angiographic protocol. Martin l and sagittal reformations were obtained. Coronal and sagittal MIPS were obtained from the axial lulu a set and were submitted for review. Automated dose lowering techniques and/or adjustment according to patient size were utilized for this exam. CT DOSE: 523.38 mGy.cm Comparison: None available at the time of this dictation. FINDINGS: Lungs and pleura: Normal. Heart and pericardium: Heart size is normal. No pericardial effusion. Vessels: No evidence of pulmonary embolism. Mediastinum and robbi: Unremarkable. Chest wall and lower neck: Unremarkable. Abdomen: For findings below the diaphragm, please refer to CT of the abdomen dated the same. Bones: Unremarkable. IMPRESSION: No acute abnormality and in particular no evidence of pulmonary embolus. ACT 112: Negative or not required by law. Electronically signed by: Rufino Donahue M.D. 07/06/2023 2:59 PM
[2023-07-06] MEDS ORDERED: SODIUM CHLORIDE 0.9% 1,000 ML IV STA (15:10)
[2023-07-06] MEDS ORDERED: ALBUMIN 5% 250 ML IV ONE (15:20)
--- NOTE | 2023-07-06 15:31 | CT Scan Report ---
CT abd pelvis IV con only CLINICAL HISTORY: abdominal pain TECHNIQUE: Helical axial images of the abdomen and pelvis were obtained and displayed. Automated dose lowering techniques and/or adjustment according to patient size were utilized for this exam. This e xam was performed with intravenous contrast. COMPARISON: Comparison is made to CT abdomen pelvis 04/08/2023 FINDINGS: Lower chest: No acute abnormality. Liver: Focal fatty changes are noted about the falciform ligament. Gallbladder and biliary tree: The gallbladder is contracted. No intra- or extrahepatic biliary ductal dilation. Oral edema is noted. Pancreas: Unremarkable, no focal lesions. Spleen: Unremarkable. Adrenals: Unremarkable. Kidneys and ureters: Unremarkable. Bladder: There is thickening of the bladder with a small amount of intraluminal gas. Reproductive organs: Redemonstration of left adnexal cystic lesion. Bowel: Surgical changes of subtotal colectomy. Previously noted perianal fistulas remain present but are somewhat less conspicuous than on the prior exam. Lymph nodes Retroperitoneal: Subcentimeter lymph nodes are noted. Pelvic: Unremarkable. Mesenteric: Subcentimeter lymph nodes are noted. Peritoneum: Small amount of ascites is seen. Vessels: Unremarkable. Abdominal wall: Unremarkable. Bones: Degenerative changes in the visualized spine. IMPRESSION: 1. Nonspecific ascites and periportal edema. 2. Thickening of the bladder wall with air-fluid level, correlation with urinalysis is recommended t o exclude cystitis. 3. Stable left adnexal cystic lesion. 4. Additional findings as above. ACT 112: Negative or not required by law. Electronically signed by: Rufino Donahue M.D. 07/06/2023 3:29 PM
--- NOTE | 2023-07-06 16:56 | History & Physical Report ---
Date of Service July 06, 2023 Assessment & Plan (1) Protein calorie malnutrition: Plan: Hypotension No infectious symptoms, no fevers, no leukocytosis, and Pro-Toni is negative ? Cystitis on CT, has not had symptoms of this UA pending. Patient has a colovesicular fistula so urine is always infected appearing, she has not had any urinary symptoms. Is empirically covered with 1 dose of Rocephin will defer additional and follow-up for any unusual speciatio n's nonuse Lactate initially elevated, normalized following IV FM CTA: No acute abnormality, no PE, no pneumonia CTA/P with IV contrast: Nonspecific ascites/periportal edema. Thickening of bladder wall. Stable left adnexal cystic lesion. Previously noted perianal fistulas remain present, no worsening. Given persistent hypotension despite fluids and without clear infectious source patient was given methylprednisolone 125 load for possible AI. Random cortisol was drawn prior BC pending Given CT findings with possible cystitis and hypertension with elevated lactate single dose of Rocephin given for empiric coverage. Additional antibiotics deferred pending UA and clinical progression Suspect overall patient's hypotension and periods of sweating following hours of not eating are due to severe protein calorie malnutrition and solute depletion. She has a loss of oncotic pressure both due to anemia and hypoalbuminemia. We will continue 24 hours of albumin 5% every 6 hours. Normal blood pressure is 90 systolic, following albumin she has improved to 80s90s. As her lactate has normalized and she is not showing signs of endorgan ischemia at time of hospitalist assessment do not feel that she needs ICU or pressors at this time, but will follow closely on PCU overnight Nutrition consulted She has not been on steroids in the last year for her Crohn's, lowering suspi cion for secondary AI. Random cortisol is pending, did receive a single dose of methylprednisolone given persistent hypotension. Crohn's disease Patient denies current/active treatment for this No bowel obstruction is noted on admitting CT Has an ileostomy in place, functioning normally without increased output No recent GI bleeding Severe protein calorie malnutrition Cachectic, low BMI, with edema likely due to low albumin Continue albumin as noted Nutrition consulted, continue boost as noted Iron deficiency anemia Microcytic to 72.7, hemoglobin 9.2. Baseline around 910 Iron panel ordered, if infection treated/ruled out INR remains low patient would benefit from IV iron protocol up to 1 g total over 3 days. She cannot tolerate venofer brand and need sslow infusion due to shortness of breath/allergic rxn in the past. Discuss w/ hemeonc prior to infusion DVT prophylaxis: Heparin, SCDs. Defer full dose Lovenox due to extremely low BMI CODE STATUS: Full code Disposition: PCU Diet: Regular plus boost (2) Hypotension: (3) Severe protein-calorie malnutrition: (4) Crohn disease: (5) Crohn's disease of colon with fistula: History of Present Illness Primary Care Provider: Salome Hutchinson is a 37-year-old female with past medical history of protein calorie malnutrition, Crohn's disease, severe anemia, iron deficiency anemia, ileostomy status 2/2 Crohn's disease and fistulas, and COPD who presents with severe fatigue and weakness. She is hypotensive on ER evaluation despite 30 cc/kg of fluid resuscitation, at baseline blood pressures run [id number] Patient last discharged 04/12/2023 after an admission for recurrent small bowel obstruction and Crohn's disease. Also noted to have an ovarian mass being worked up at [facility]. Elsie reports she has just been tired and weak. Has had trouble with weight gain. Got up to 80lbs at last admission, and did ok after did charge for a few days but then had a hard time keeping weight on. Notes she is eating and drinking 'OK.' NO increased output from ostomy. No bleeding/melena into ostomy. Endorses intermittent palpitations with some fluttering "fish out of water' transient pain, none at time of admission. Denies SoB, but feels tired and fatigues easily. Denies urinary symtpms. Denies cough and respiratory sx. Endorses intermittent clear runny nose without congestion. She also is worreid about diabetes, notes if she goes for a while without eating she gets very lightheaded, sweaty, and tired which improves after eating. No steroid tx in the last year. Last time she was on these was 10 years ago. No current tx for Crohns, is following next month with [facility]. Denies current or recent flares but notes does have a chronic narrowin gand recent SBO which feels 'fine' at time of admit Pt notes ovarian mass was removed at OSH. Doing well since. [facility] too k mass out, will have elective resection of a related area of restricted bowel, but no blockage nd this is not urgent. Mass by verbal report was not malignant. Medical History: Reviewed Medications: Reviewed Surgical History: Reviewed Family history: Reviewed Allergies: Reviewed Social History: Denies tobacco/etoh. Code Status: Full Allergies Allergy/AdvReac Type Severity Reaction Status Date / Time aspirin Allergy Severe ANAPHYLAXIS Unverified 04/09/23 16:11 infliximab Allergy Severe ANAPHYLAXIS Verified 04/09/23 16:11 NSAIDS (Non-Steroidal Allergy Unknown THROAT Verified 04/09/23 16:11 Anti-Inflamma SWELLING Sulfa (Sulfonamide Allergy Unknown throat Unverified 04/09/23 16:11 Antibiotics) swelling bee venom protein (honey bee) Allergy Anaphylaxis Verified 04/09/23 16:11 ketorolac [From Toradol] Allergy Swelling Verified 04/09/23 16:11 of Lip/Tongue/Throat azathioprine AdvReac Unknown MIGRAINE Verified 04/09/23 16:11 Home Medications Medication Instructions Recorded Confirmed Type acetaminophen 500 mg tablet 1,000 mg PO Q6H PRN Pain 08/26/22 04/09/23 History (Tylenol Extra Strength) cyanocobalamin (vitamin B-12) 1,000 mcg IM MO 08/26/22 04/09/23 History 1,000 mcg/mL injection solution epinephrine 0.3 mg/0.3 mL 0.3 mg IM Q4H PRN Allergic Reaction 08/26/22 04/09/23 History injection, auto-injector fluticasone fur. 200 mcg-umeclid 1 inh inhalation DAILY 08/26/22 04/09/23 History 62.5 mcg-vilant 25 mcg inhalat.powder (Trelegy Ellipta) magnesium oxide 400 mg (241.3 mg 400 mg PO DAILY 08/26/22 04/09/23 History magnesium) tablet potassium chloride 20 mEq 20 meq PO DAILY 08/26/22 04/09/23 History tablet,extended release(part/cryst) buprenorphine HCl 8 mg sublingual 8 mg sublingual BID 04/08/23 04/09/23 History tablet pediatric [id number] 1 tab PO QAM #0 tabs 04/12/23 Rx (Flintstones Complete (iron) chewable tablet) Past Med/Surg History Medical History Crohn disease Crohn's disease of colon with fistula Endometriosis History of MRSA infection "per records" Rheumatoid arthritis Surgical History H/O colectomy "total colectomy with ileoanal anastomosis 03/2006" H/O resection of large bowel multiple resections and clean outs History of rectal surgery "hundreds of fistula surgeries" S/P exploratory laparotomy endometriosis Family History Other Blood clot in vein Social History Smoking Status: Former smoker Tobacco Type: Cigarettes Second Hand Exposure: No; Do You Dip or Chew Tobacco: No; Hx Alcohol Use: No Hx Substance Use: No Preferred Language: Macedonian Communication Ability: Effective Dip [place]ier Required: No Beliefs That Will Affect Care: None Current Living Situation: Family Current Living Situation Comment: Lives at home with daughter Feels Safe at Home: Yes Assistive Devices: None Review of Systems Review of Systems: All systems reviewed & are unremarkable except as noted in HPI & below Physical Exam Physical Exam: General: A&Ox3. Frail, cachectic HEENT: Atraumatic, normocephalic. Vision/hearing at Pulm: CTAB A&P. -wheezes, -rales, -rhonchi. Symmetrical chest rise. No increased work of breathing. No respiratory distress. Cardiac: RRR, -mrg. Radial pulses intact and symmetrical. Abdominal: Nontender, nondistended, soft. BS present. Ileostomy present, without increased output. Abdomen soft, nontender. Extremities: Trace pretibial pitting edema bilaterally. Results & Data Results & Data Vital Signs (Past 12 Hours) Vital Signs Temp Pulse Pulse Resp BP BP Pulse Ox 07/06/23 16:18 36.3 C L 57 L 80/52 L 07/06/23 15:28 78/42 L 07/06/23 15:03 81 17 99 07/06/23 14:00 66 18 84/58 L 97 07/06/23 13:00 79 18 80/56 L 97 07/06/23 12:25 108 H 18 73/53 L 98 07/06/23 12:16 100 H 07/06/23 11:52 07/06/23 11:21 36.1 C L 124 H 16 93/68 L 96 O2 Del Method 07/06/23 16:18 07/06/23 15:28 07/06/23 15:03 Room Air 07/06/23 14:00 Room Air 07/06/23 13:00 Room Air 07/06/23 12:25 Room Air 07/06/23 12:16 07/06/23 11:52 Room Air 07/06/23 11:21 Room Air PG Care Time/CCT Total # of Minutes Spent Total Time Spent with Patient: Total time spent is greater than 50% in coordination of care (as documented) at patient's floor/unit and/or counseling patient: Coding Level of Care Code 21736 INT INP/OBS CARE 3/75MIN Diagnoses Protein calorie malnutrition E46 Hypotension I95.9 Severe protein-calorie malnutrition E43 Crohn disease K50.90 Crohn's disease of colon with fistula K50.113
[2023-07-06] MEDS ORDERED: methylPREDNISolone 125 MG/2 ML VIAL IV STA (17:01)
[2023-07-06] MEDS ORDERED: cefTRIAXone SODIUM 2000MG/70ML D5W IV STA (17:27)
[2023-07-06] MEDS ORDERED: MAGNESIUM OXIDE 400 MG TAB PO STA (17:28)
[2023-07-06 17:33] LABS: Iron < 10 mcg/dl (35-150); Unsaturated Iron Binding Cap 74 mcg/dl (155-355)
[2023-07-06 17:52] LABS: Ferritin 81.4 ng/ml (8-388)
[2023-07-06] MEDS: MAGNESIUM OXIDE 400 MG TAB PO SCH ×2 (21:32→21:33)
[2023-07-06] MEDS: ALBUMIN 5% 250 ML IV SCH (21:41)
[2023-07-06] MEDS ORDERED: buprenorphine HCL 8 MG SUBL SL SCH (22:00)
[2023-07-07] MEDS: MAGNESIUM OXIDE 400 MG TAB PO SCH ×3 (01:55→20:35)
[2023-07-07] MEDS: ALBUMIN 5% 250 ML IV SCH ×2 (02:01→09:30)
[2023-07-07 02:39] LABS: Appearance Urine Turbid (Clear); Bilirubin Urine 1+ (Negative); Blood Urine 3+ (Negative); Color Urine Brown; Glucose Urine UA Negative (Negative); Ketones Urine Negative (Negative); Leukocyte Esterase Urine 3+ (Negative); Nitrite Urine Negative (Negative); Protein Urine 2+ (Negative); Specific Gravity Urine 1.015 (1.000-1.030); Urobilinogen Urine Negative (Negative)
[2023-07-07 02:43] LABS: Bacteria Urine 4+ (Negative); Epithelial Cell Urine 0-5 /lpf (0-5); WBC Urine >30 /hpf (0-5)
[2023-07-07 08:11] LABS: Hematocrit (blood only) 23.1 % (37.0-47.0); Hemoglobin 6.8 g/dl (12.0-16.0); Mean Corpuscular Hemoglobin 21.7 pg (25.0-34.0); Mean Corpuscular Hgb Conc 29.4 g/dL (32.0-36.0); Mean Corpuscular Volume 73.6 fL (80.0-100.0); Mean Platelet Volume 8.6 fL (9.4-12.4); Platelet Count 327 K/uL (130-400); RDW Coefficient of Variation 19.6 % (11.5-14.5); RDW Standard Deviation 52.1 fL (36.4-46.3); Red Blood Count 3.14 M/uL (4.20-5.40); White Blood Count 5.68 K/ul (4.8-10.8)
[2023-07-07 08:17] LABS: Immature Granulocytes # (auto) 0.04 K/uL (0.01-0.20); Immature Granulocytes % (auto) 0.7 %; Lymphocytes # (auto) 0.84 K/uL (1.20-3.40); Lymphocytes % (auto) 14.8 %; Monocytes # (auto) 0.31 K/uL (0.11-0.59); Monocytes % (auto) 5.5 %; Neutrophils # (auto) 4.49 K/uL (1.40-6.50); RBC Morphology Unremarkable
[2023-07-07] MEDS ORDERED: SODIUM CHLORIDE 0.9% 250 ML IV PRN (08:27)
[2023-07-07 08:59] LABS: Albumin Level 2.3 gm/dl (3.4-5.0); BUN Creatinine Ratio 11.6 (10-20); Bilirubin,Total 0.1 mg/dl (0.2-1.0); Calcium 7.5 mg/dl (8.6-10.3); Creatinine Clr Calc Pharmacy 97.6 ml/min; Est GFR (African American) 148.5 ml/min; Est GFR (Non-African American) 128.1 ml/min; Globulin 2.2 gm/dl (2.5-4.0); Magnesium 1.5 mg/dl (1.7-2.4); Phosphorus 3.9 mg/dl (2.5-4.9); Potassium 3.7 mmol/L (3.5-5.1); Total Protein 4.5 gm/dl (6.0-8.3)
[2023-07-07] MEDS ORDERED: NON-FORMULARY MEDICATION (Fluticasone-Umeclidin-Vilanter [Trelegy Ellipta] 200-62.5-25 mcg INH SCH (09:00)
[2023-07-07] MEDS: FLUTICASONE FUROATE 200MCG 14 PUFFS/INHALER INH SCH (09:17)
[2023-07-07] MEDS: UMECLIDINIUM/VILANTEROL 62.5/25MCG 7 PUFFS/INHALER INH SCH (09:18)
[2023-07-07] MEDS: buprenorphine HCL 8 MG SUBL SL SCH ×2 (09:29→20:35)
--- NOTE | 2023-07-07 11:08 | Hospitalist Progress Note ---
Date of Service July 07, 2023 Assessment & Plan (1) FTT (failure to thrive) in adult: Plan: Due to severe protein calorie malnutrition Patient has lost a lot of weight over the past several months Although she claimed her weight loss of 45 pounds was as a result of removal of her ovarian tumor But she also admits to high volume and mostly watery output from her ileostomy (2) Protein calorie malnutrition: Plan: -Poor nutrition for poor oral intake and poor absorption due to high output from ileostomy CTA/P with IV contrast: Nonspecific ascites/periportal edema. Thickening of bladder wall. Stable left adnexal cystic lesion. Previously noted perianal fistulas remain present, no worsening. Given persistent hypotension despite fluids and without clear infectious source patient was given methylprednisolone 125 load for possible AI. Random cortisol was drawn prior Given CT findings with possible cystitis and hypertension with elevated lactate single dose of Rocephin given for empiric coverage. Will hold off further antibiotics We will continue 24 hours of albumin 5% every 6 hours. Normal blood pressure is 90 systolic, following albumin she has improved to 80s90s. Nutrition consulted She has not been on steroids in the last year for her Crohn's, lowering suspicion for secondary AI. Random cortisol is pending, did receive a single dose of methylprednisolone given persistent hypotension. Crohn's disease Patient denies current/active treatment for this No bowel obstruction is noted on admitting CT Has an ileostomy in place, functioning normally without increased output No recent GI bleeding Severe protein calorie malnutrition Cachectic, low BMI, with edema likely due to low albumin Continue albumin as noted Nutrition consulted, continue boost as noted Iron deficiency anemia Microcytic to 72.7, hemoglobin 9.2. Baseline around 910 Iron panel ordered, if infection treated/ruled out INR remains low patient would benefit from IV iron protocol up to 1 g total over 3 days. She cannot tolerate venofer brand and need sslow infusion due to shortness of breath/allergic rxn in the past. Discuss w/ hemeonc prior to infusion. has been started on PO Iron for now DVT prophylaxis: Heparin, SCDs. Defer full dose Lovenox due to extremely low BMI CODE STATUS: Full code Disposition: PCU Diet: Regular plus boost (3) Hypotension: (4) Severe protein-calorie malnutrition: (5) Crohn disease: (6) Crohn's disease of colon with fistula: Plan continue to monitor PT/OT Admission and Anticipated Discharge Date Admission Date: July 06, 2023 Subjective patient seen and examined, still feels very weak Review of Systems Review of Systems: All systems reviewed are negative, apart from the ones contained in the history. Physical Exam Physical Exam: The patient is awake, alert and oriented 3, cachectic HEENT--PERRL, EOMI, mucous membranes and oropharynx mildly dry Neck--supple. No JVD. No bruits. Thyroid normal, trachea midline, no adenopathy. Heart--normal S1 and S2. No murmurs, rubs or gallops. Lungs--clear bilaterally, no respiratory distress, no accessory muscle use. Abdomen--normal bowel sounds and soft. Mild epigastric and left sided abdominal pain, ileostomy Extremities--no cyanosis or clubbing. No edema. Dermatologic--normal skin turgor, normal color, no abnormal lymph nodes, no rash. Neurologic--cranial nerves II through XII grossly intact. Rheumatologic--normal range of motion. Psychiatric--normal affect. Results & Data Results & Data Vital Signs (Past 12 Hours) Vital Signs Temp Pulse Pulse Resp BP BP Pulse Ox 07/07/23 10:36 97.7 F 53 L 18 80/48 L 98 07/07/23 07:54 97.7 F 98 H 18 89/57 L 98 07/07/23 03:20 97.5 F L 62 16 78/53 L 99 O2 Del Method 07/07/23 10:36 07/07/23 07:54 Room Air 07/07/23 03:20 Room Air PG Care Time/CCT Total # of Minutes Spent Total Time Spent with Patient: Total time spent is greater than 50% in coordination of care (as documented) at patient's floor/unit and/or counseling patient: Coding Level of Care Code 41098 SUB INP/OBS CARE 2/35MIN Diagnoses FTT (failure to thrive) in adult R62.7 Protein calorie malnutrition E46 Hypotension I95.9 Severe protein-calorie malnutrition E43 Crohn disease K50.90 Crohn's disease of colon with fistula K50.113 Time Spent (min) 35
[2023-07-07 13:11] LABS: Blood Urine 3+ (Negative)
[2023-07-07] MEDS: MIDODRINE HCL 10 MG TAB PO SCH ×2 (13:17→17:36)
[2023-07-07 13:23] LABS: Prealbumin 4.4 mg/dl (20-40)
[2023-07-07] MEDS ORDERED: SIMETHICONE 80 MG CHEW PO PRN (16:31)
[2023-07-07] MEDS ORDERED: cefTRIAXone SODIUM 2,000 MG in DEXTROSE 5% 50 ML IV SCH (17:00)
[2023-07-07] MEDS: FERROUS SULFATE 325 MG TAB PO SCH (17:36)
[2023-07-08 07:58] LABS: Basophils # (auto) 0.01 K/uL (0.00-0.20); Basophils % (auto) 0.2 %; Eosinophils # (auto) 0.01 K/uL (0.00-0.50); Eosinophils % (auto) 0.2 %; Hematocrit (blood only) 27.9 % (37.0-47.0); Hemoglobin 8.6 g/dl (12.0-16.0); Immature Granulocytes # (auto) 0.03 K/uL (0.01-0.20); Immature Granulocytes % (auto) 0.7 %; Lymphocytes # (auto) 1.09 K/uL (1.20-3.40); Lymphocytes % (auto) 24.1 %; Mean Corpuscular Hemoglobin 23.5 pg (25.0-34.0); Mean Corpuscular Hgb Conc 30.8 g/dL (32.0-36.0); Mean Corpuscular Volume 76.2 fL (80.0-100.0); Mean Platelet Volume 8.4 fL (9.4-12.4); Monocytes # (auto) 0.43 K/uL (0.11-0.59); Monocytes % (auto) 9.5 %; Neutrophils # (auto) 2.96 K/uL (1.40-6.50); Neutrophils % (auto) 65.3 %; Platelet Count 319 K/uL (130-400); RDW Coefficient of Variation 19.8 % (11.5-14.5); RDW Standard Deviation 53.7 fL (36.4-46.3); Red Blood Count 3.66 M/uL (4.20-5.40); White Blood Count 4.53 K/ul (4.8-10.8)
[2023-07-08 08:14] LABS: BUN Creatinine Ratio 13.2 (10-20); Calcium 7.5 mg/dl (8.6-10.3); Creatinine Clr Calc Pharmacy 82.6 ml/min; Est GFR (African American) 138.6 ml/min; Est GFR (Non-African American) 119.6 ml/min; Potassium 3.6 mmol/L (3.5-5.1)
[2023-07-08] MEDS: buprenorphine HCL 8 MG SUBL SL SCH (08:58)
[2023-07-08] MEDS: FERROUS SULFATE 325 MG TAB PO SCH (09:02)
[2023-07-08] MEDS: FLUTICASONE FUROATE 200MCG 14 PUFFS/INHALER INH SCH (09:02)
[2023-07-08] MEDS: MAGNESIUM OXIDE 400 MG TAB PO SCH (09:02)
[2023-07-08] MEDS: MIDODRINE HCL 10 MG TAB PO SCH ×2 (09:02→12:42)
[2023-07-08] MEDS: UMECLIDINIUM/VILANTEROL 62.5/25MCG 7 PUFFS/INHALER INH SCH (09:03)
[2023-07-08] MEDS ORDERED: SIMETHICONE 80 MG CHEW PO ONE (10:11)
[2023-07-08] MEDS ORDERED: cefTRIAXone SODIUM 1,000 MG in DEXTROSE 5% 50 ML IV SCH (10:15)
--- NOTE | 2023-07-08 14:13 | Discharge Summary ---
Date of Service July 08, 2023 Admission HPI Per Admitting Provider Evangelina is a 37-year-old female with past medical history of protein calorie malnutrition, Crohn's disease, severe anemia, iron deficiency anemia, ileostomy status 2/2 Crohn's disease and fistulas, and COPD who presents with severe fatigue and weakness. She is hypotensive on ER evaluation despite 30 cc/kg of fluid resuscitation, at baseline blood pressures run [id number] Patient last discharged 04/12/2023 after an admission for recurrent small bowel obstruction and Crohn's disease. Also noted to have an ovarian mass being worked up at [place] [facility]. Elsie reports she has just been tired and weak. Has had trouble with weight gain. Got up to 80lbs at last admission, and did ok after did charge for a few days but then had a hard time keeping weight on. Notes she is eating and drinking 'OK.' NO increased output from ostomy. No bleeding/melena into ostomy. Endorses intermittent palpitations with some fluttering "fish out of water' transient pain, none at time of admission. Denies SoB, but feels tired and fatigues easily. Denies urinary symtpms. Denies cough and respiratory sx. Endorses intermittent clear runny nose without congestion. She also is worreid about diabetes, notes if she goes for a while without eating she gets very lightheaded, sweaty, and tired which improves after eating. No steroid tx in the last year. Last time she was on these was 10 years ago. No current tx for Crohns, is following next month with [facility]. Denies current or recent flares but notes does have a chronic narrowin gand recent SBO which feels 'fine' at time of admit Pt notes ovarian mass was removed at OSH. Doing well since. [facility] took mass out, will have elective resection of a related area of restricted bowel, but no blockage nd this is not urgent. Mass by verbal report was not malignant. Medical History: Reviewed Medications: Reviewed Surgical History: Reviewed Family history: Reviewed Allergies: Reviewed Social History: Denies tobacco/etoh. Code Status: Full Principal Diagnosis Failure to thrive, iron deficiency anemia, chronic hypotension, hypomagnesemia Discharge Exam General-alert and oriented x3, no fevers, no chills. Cachectic appearing HEENT-head atraumatic and normocephalic, pupils equal and reactive to light, extraocular muscles intact Neck-no lymphadenopathy or thyromegaly, trachea midline Chest-clear to auscultation percussion. No rales wheezing or rhonchi Cardiac-regular rate and rhythm, normal S1 and S2 Abdomen-normal bowel sounds, nontender, no hepatosplenomegaly Extremities-no cyanosis, clubbing, or edema Neuro-cranial nerves II through XII intact, motor and sensory function within normal limits, strength symmetrical but with generalized weakness, no focal deficits Psych-normal affect, normal mood Discharge Data Allergies Allergy/AdvReac Type Severity Reaction Status Date / Time aspirin Allergy Severe ANAPHYLAXIS Unverified 07/06/23 20:07 infliximab Allergy Severe ANAPHYLAXIS Verified 07/06/23 20:07 NSAIDS (Non-Steroidal Allergy Unknown THROAT Verified 07/06/23 20:07 Anti-Inflamma SWELLING Sulfa (Sulfonamide Allergy Unknown throat Unverified 07/06/23 20:07 Antibiotics) swelling bee venom protein (honey bee) Allergy Anaphylaxis Verified 07/06/23 20:07 ketorolac [From Toradol] Allergy Swelling Verified 07/06/23 20:07 of Lip/Tongue/Throat azathioprine AdvReac Unknown MIGRAINE Verified 07/06/23 20:07 Consultations 07/06/23 17:11 ED Decision to Admit Stat Ordered Studies 07/06/23 13:01 CT Abd and Pelvis [CT abd pelvis IV con only] Stat 07/06/23 13:27 CT for pulmonary embolism PE [CT angio chest PE protocol] Stat Hospital Course (1) FTT (failure to thrive) in adult: Due to severe protein calorie malnutrition. She is now eating well and taking supplements. This appears to be a chronic problem for her (2) Protein calorie malnutrition: Continue dietary supplements. Encourage p.o. intake. CTA/P with IV contrast: Nonspecific ascites/periportal edema. Thickening of bladder wall. Stable left adnexal cystic lesion. Previously noted perianal fistulas remain present, no worsening. She received intravenous albumin this admission (3) Hypotension: Chronic. She is now on midodrine. (4) Severe protein-calorie malnutrition: Continue dietary supplementation (5) Crohn's disease of colon with fistula: Chronic. No acute flare. No intervention necessary at this time Plan Home today, July 08, on midodrine and oral iron supplementation and magnesium supplementation PT/OT Total Time Total Time Spent Total Time Spent (In Minutes): 45 minutes Discharge Plan Discharge Items Patient Disposition: Home - Self-Care Reason For Visit: HYPOTENSION, PROTEIN-CALORIE MALNUTRITION Discharge Diagnosis: Failure to thrive, iron deficiency anemia, hypomagnesemia, chronic hypotension, chronic malnutrition Activity: Resume your previous activity Non-emergency contact: Primary Care Provider Call non-emergency contact if: you have any medication questions Follow-up/Referrals: Salome Molina PA-C [Primary Care Provider] - Diet: Regular and Other - See Diet Comment Diet Comment: Take dietary supplements with every meal Addtl Attending Provider Instructions: Take midodrine 3 times a day for blood pressure support. Take oral iron and magnesium as directed Pending Studies at Discharge: No Stand-Alone Forms: My [employer], Smoking Cessation Medications and DC Order Prescriptions: New ferrous sulfate 325 mg (65 mg iron) Tablet,Delayed Release (Dr/Ec) 325 mg PO BIDM Qty: 60 0RF midodrine 10 mg Tablet 10 mg PO TID@0800,1200,1700 Qty: 100 0RF magnesium oxide 400 mg (241.3 mg magnesium) Tablet 400 mg PO BID Qty: 60 0RF Continued cyanocobalamin (vitamin B-12) 1,000 mcg/mL Solution 1,000 mcg IM MO epinephrine 0.3 mg/0.3 mL Auto-Injector 0.3 mg IM Q4H PRN (Reason: Allergic Reaction) Trelegy Ellipta 200-62.5-25 mcg blister with device 1 inh INHALATION DAILY PRN (Reason: Shortness Of Breath Or Wheezing) buprenorphine HCl 8 mg tablet, sublingual 8 mg SUBLINGUAL DIRECTED Rx Instructions: 8mg in AM, 4mg lunch time, 4mg in evening Flintstones Complete (iron) Tablet,Chewable 2 tab PO QAM acetaminophen [Tylenol] 325 mg Tablet 650 mg PO QID PRN (Reason: Pain) Discharge Orders: Discharge Order (Routine); Ordered 07/08/23 Ordered By: Raleigh Loving Admission Data Admit Date/Time: 07/06/23 17:31 Attending Provider: Raleigh Loving Admit Provider: Barrie Marquez Primary Care Provider: Salome Molina Other Providers: Barrie Marquez Coding Level of Care Code 82270 INP/OBS DISCH >30 MIN Diagnoses FTT (failure to thrive) in adult R62.7 Protein calorie malnutrition E46 Hypotension I95.9 Severe protein-calorie malnutrition E43 Crohn's disease of colon with fistula K50.113
--- NOTE | 2023-07-08 20:37 | Electrocardiogram Report ---
Test Reason : Blood Pressure : / mmHG Vent. Rate : 106 BPM Atrial Rate : 106 BPM P-R Int : 154 ms QRS Dur : 058 ms QT Int : 306 ms P-R-T Axes : 080 080 -54 degrees QTc Int : 406 ms Sinus tachycardia Anteroseptal infarct (cited on or before 21-JUL-2015) Abnormal ECG When compared with ECG of 08-APR-2023 14:38, Questionable change in initial forces of Anterior leads T wave inversion now evident in Inferior leads T wave inversion more evident in Anterior leads Confirmed by Beltran Aragon ([id number]) on 07/08/2023 8:37:19 PM Referred By: Confirmed By:Beltran Aragon
== END 2023-07-08 15:33 | disposition home or self-care (01) | DRG 641 ==
LOC: ED 11:12 → SUATTDRO 17:31 → 2S 17:31

== ENCOUNTER 2023-08-21 21:23 | Inpatient (IN) ==
[2023-08-21 22:28] LABS: Albumin Globulin Ratio 1.1 (0.9-2); Albumin Level 3.6 gm/dl (3.4-5.0); BUN Creatinine Ratio 24.5 (10-20); Bilirubin,Total 0.4 mg/dl (0.2-1.0); Calcium 9.3 mg/dl (8.6-10.3); Creatinine Clr Calc Pharmacy 89.3 ml/min; Est GFR (African American) 138.6 ml/min; Est GFR (Non-African American) 119.6 ml/min; Globulin 3.4 gm/dl (2.5-4.0); Potassium 4.2 mmol/L (3.5-5.1)
[2023-08-21 22:33] LABS: Troponin I High Sensitivity 4.2 pg/ml (0-14)
[2023-08-21 23:12] LABS: Basophils # (auto) 0.02 K/uL (0.00-0.20); Basophils % (auto) 0.1 %; Hematocrit (blood only) 25.4 % (37.0-47.0); Hemoglobin 7.2 g/dl (12.0-16.0); Hypochromasia Present; Immature Granulocytes # (auto) 0.26 K/uL (0.01-0.20); Immature Granulocytes % (auto) 1.5 %; Lymphocytes # (auto) 0.51 K/uL (1.20-3.40); Lymphocytes % (auto) 2.9 %; Mean Corpuscular Hemoglobin 22.7 pg (25.0-34.0); Mean Corpuscular Hgb Conc 28.3 g/dL (32.0-36.0); Mean Corpuscular Volume 80.1 fL (80.0-100.0); Mean Platelet Volume 8.7 fL (9.4-12.4); Monocytes # (auto) 0.65 K/uL (0.11-0.59); Monocytes % (auto) 3.6 %; Neutrophils # (auto) 16.45 K/uL (1.40-6.50); Neutrophils % (auto) 91.9 %; Platelet Count 371 K/uL (130-400); Polychromasia 1+; RDW Coefficient of Variation 21.7 % (11.5-14.5); RDW Standard Deviation 63.1 fL (36.4-46.3); Red Blood Count 3.17 M/uL (4.20-5.40); White Blood Count 17.89 K/ul (4.8-10.8)
[2023-08-22] MEDS ORDERED: SODIUM CHLORIDE 0.9% 1,000 ML IV ONE (00:01)
[2023-08-22] MEDS ORDERED: SODIUM CHLORIDE 0.9% 250 ML IV PRN (00:20)
[2023-08-22] MEDS ORDERED: BUPRENORPHINE/NALOXONE 8/2 MG TAB SL STA (00:28)
[2023-08-22] MEDS ORDERED: TPN/PPN CONSULT PHARMACY PRN (03:06)
--- NOTE | 2023-08-22 03:12 | History & Physical Report ---
Date of Service August 22, 2023 Assessment & Plan (1) Severe anemia: Plan: Patient with anemia. Likely chronic blood loss with history of Crohns and on Fondiparinux injections. Tachycardic and hypotensive prior to arrival - doubt this is secondary to her anemia, fairly chronic, not far from baseline, no acute large volume blood loss -Transfusion 1u PRBCs when product is available -Continue IVF - Plasmalyte at 80mL/hr x 2L -Repeat CBC following transfusion (2) FTT (failure to thrive) in adult: Plan: Continue TPN and fat emulsion therapy Consult placed to Nutrition (3) Crohn's disease of colon with fistula: Plan: Considering patient's recent decrease in Prednisone as possibly contributing to her symptoms. Blood pressure is acceptable now. Electrolytes WNL -Will continue Prednisoone 30mg po daily (4) History of DVT (deep vein thrombosis): Plan: Patient with history of DVT. On home Fondaparinux. She has been administering this medication every 2-3 days - does note a pink tinge to her ostomy and fistula output after her injection. -Continue Fondaparinux q 48 hours History of Present Illness Chief Complaint: generalized weakness, fatigue, dizziness Primary Care Provider: SARAY Pascal Elsie Black is a 37yo female with complex medical history to include Crohns disease s/p colectomy with ileostomy and mucus fistula, failure to thrive, on TPN and Fat emulsion QOD presenting with generalized illness. She reports that over the last several days she has been having alternating hot and cold flashes as well as episodes of dizziness/lightheadedness and confusion. Yesterday AM she woke at 02:30 and thought that she had a fever. She felt ill throughout the day with episodes of dizziness. She checked her blood pressure and found it to be low at 75/52 with elevated HR of 129. She ultimately called EMS and came to the ER. She additionally reports pink-tinged output from her ileostomy and fistula after she administers her Fondaparinux injection. She has been on Prednisone 40mg po daily for over 1 month. Her surgeon recently mentioned that she would like the patient to begin weaning her steroids. She did take 30mg of Prednisone the last 2 days. In the ER she is afebrile, tachycardic Noted to be anemic with Hgb of 7.2. Blood transfusion x 1 unit ordered - patient with antibodies and blood is being cross matched at the [facility] Allergies Allergy/AdvReac Type Severity Reaction Status Date / Time aspirin Allergy Severe ANAPHYLAXIS Unverified 07/06/23 20:07 infliximab Allergy Severe ANAPHYLAXIS Verified 07/06/23 20:07 NSAIDS (Non-Steroidal Allergy Unknown THROAT Verified 07/06/23 20:07 Anti-Inflamma SWELLING Sulfa (Sulfonamide Allergy Unknown throat Unverified 07/06/23 20:07 Antibiotics) swelling bee venom protein (honey bee) Allergy Anaphylaxis Verified 07/06/23 20:07 ketorolac [From Toradol] Allergy Swelling Verified 07/06/23 20:07 of Lip/Tongue/Throat azathioprine AdvReac Unknown MIGRAINE Verified 07/06/23 20:07 Home Medications Medication Instructions Recorded Confirmed Type cyanocobalamin (vitamin B-12) 1,000 mcg IM MO 08/26/22 08/04/23 History 1,000 mcg/mL injection solution epinephrine 0.3 mg/0.3 mL 0.3 mg IM Q4H PRN Allergic Reaction 08/26/22 08/04/23 History injection, auto-injector fluticasone fur. 200 mcg-umeclid 1 inh inhalation DAILY PRN 08/26/22 08/04/23 History 62.5 mcg-vilant 25 mcg Shortness Of Breath Or Wheezing inhalat.powder (Trelegy Ellipta) buprenorphine HCl 8 mg sublingual 8 mg sublingual DIRECTED 04/08/23 08/04/23 History tablet pediatric [id number] 2 tab PO QAM 07/06/23 08/04/23 History (Flintstones Complete (iron) chewable tablet) Tpn Solution See Rx Instructions .Route .COMPLEX 08/04/23 08/04/23 History fat emulsion See Rx Instructions .Route .COMPLEX 08/04/23 08/04/23 History fondaparinux 5 mg/0.4 mL 5 mg subcut PM 08/04/23 08/04/23 History subcutaneous solution syringe Past Med/Surg History Medical History (Updated 08/22/23 @ 03:10 by Danelle Cooper DO) Crohn's disease of colon with fistula Endometriosis History of MRSA infection "per records" Protein calorie malnutrition Rheumatoid arthritis Severe protein-calorie malnutrition Small bowel obstruction Surgical History H/O colectomy "total colectomy with ileoanal anastomosis 03/2006" H/O resection of large bowel multiple resections and clean outs History of rectal surgery "hundreds of fistula surgeries" S/P exploratory laparotomy endometriosis Family History Other Blood clot in vein Social History Smoking Status: Current every day smoker Tobacco Type: E-cigarettes / Vaping Cigarettes Per Day: 1 cigarette per day; Second Hand Exposure: No; Do You Dip or Chew Tobacco: No; Hx Alcohol Use: Yes (hx alcoholism) Hx Substance Use: No Preferred Language: New Zealander Communication Ability: Effective Tennis Coach Required: No Beliefs That Will Affect Care: None Current Living Situation: Family Current Living Situation Comment: Lives at home with daughter Feels Safe at Home: Yes Assistive Devices: Walker Review of Systems Review of Systems: All systems reviewed & are unremarkable except as noted in HPI & below Physical Exam Physical Exam: General: frail, cachectic appearing female, NAD, resting comfortably Skin: dry, flaking, no rash HEENT: NC/AT, anicteric sclera, conjunctiva without injection, external ear normal to inspection and nontender, nares patent, moist mucus membranes, dentition intact, no oropharyngeal lesions, neck supple, trachea midline, no LAD, no thyromegaly, no JVD Heart: +S1/S2, regular, no m/r/g Lungs: equal air entry bilaterally, no rales/rhonchi/wheezes Abd: +BS, soft, NT/ND, ileostomy in place with some output, fistula in place with some output, no bleeding, stomas appear healthy Ext: warm, 2+ pulses in UE/LE bilaterally, no clubbing/cyanosis or edema Neuro: nonfocal, patient AA&O x 4, speech intact, no facial droop, moving all extremities on command with equal strength 5/5 Results & Data Results & Data Vital Signs (Past 12 Hours) Vital Signs Temp Pulse Resp BP Pulse Ox O2 Del Method O2 Flow Rate 08/22/23 01:30 107 H 20 100 08/22/23 01:00 110 H 16 103/66 100 08/22/23 00:30 105 H 18 110/78 100 08/22/23 01:09 98 Room Air 08/22/23 00:00 109 H 14 90/64 L 99 08/21/23 23:37 98 Room Air 0 08/21/23 23:32 106 H 08/21/23 21:26 36.7 C 119 H 20 110/69 98 Room Air Laboratory Results Laboratory Results WBC 17.89 K/ul (4.8-10.8) H 08/21/23 21:58 RBC 3.17 M/uL (4.20-5.40) L 08/21/23 21:58 Hgb 7.2 g/dl (12.0-16.0) L 08/21/23 21:58 Hct 25.4 % (37.0-47.0) L 08/21/23 21:58 MCV 80.1 fL (80.0-100.0) 08/21/23 21:58 MCH 22.7 pg (25.0-34.0) L 08/21/23 21:58 MCHC 28.3 g/dL (32.0-36.0) L 08/21/23 21:58 RDW Std Deviation 63.1 fL (36.4-46.3) H 08/21/23 21:58 RDW Coeff of Quoc 21.7 % (11.5-14.5) H 08/21/23 21:58 Plt Count 371 K/uL (130-400) 08/21/23 21:58 MPV 8.7 fL (9.4-12.4) L 08/21/23 21:58 Immature Gran % (Auto) 1.5 % 08/21/23 21:58 Neut % (Auto) 91.9 % 08/21/23 21:58 Lymph % (Auto) 2.9 % 08/21/23 21:58 Mora % (Auto) 3.6 % 08/21/23 21:58 Eos % (Auto) 0.0 % 08/21/23 21:58 Baso % (Auto) 0.1 % 08/21/23 21:58 Neut # (Auto) 16.45 K/uL (1.40-6.50) H 08/21/23 21:58 Lymph # (Auto) 0.51 K/uL (1.20-3.40) L 08/21/23 21:58 Mora # (Auto) 0.65 K/uL (0.11-0.59) H 08/21/23 21:58 Eos # (Auto) 0.00 K/uL (0.00-0.50) 08/21/23 21:58 Baso # (Auto) 0.02 K/uL (0.00-0.20) 08/21/23 21:58 Immature Gran # (Auto) 0.26 K/uL (0.01-0.20) H 08/21/23 21:58 Polychromasia 1+ 08/21/23 21:58 Hypochromasia Present 08/21/23 21:58 Sodium 134 mmol/L (136-145) L 08/21/23 21:58 Potassium 4.2 mmol/L (3.5-5.1) 08/21/23 21:58 Chloride 98 mmol/L (98-107) 08/21/23 21:58 Carbon Dioxide 29 mmol/L (21-32) 08/21/23 21:58 Anion Gap 7 (3-11) 08/21/23 21:58 BUN 13 mg/dl (6-23) 08/21/23 21:58 Creatinine 0.53 mg/dl (0.6-1.2) L 08/21/23 21:58 Est Cr Clr Drug Dosing 89.3 ml/min 08/21/23 21:58 Est GFR ( Amer) 138.6 ml/min 08/21/23 21:58 Est GFR (Non-Af Amer) 119.6 ml/min 08/21/23 21:58 BUN/Creatinine Ratio 24.5 (10-20) H 08/21/23 21:58 Glucose 112 mg/dl (70-99(Fasting)) H 08/21/23 21:58 Calcium 9.3 mg/dl (8.6-10.3) 08/21/23 21:58 Total Bilirubin 0.4 mg/dl (0.2-1.0) 08/21/23 21:58 AST 8 U/L (13-39) L 08/21/23 21:58 ALT 11 U/L (7-52) 08/21/23 21:58 Alkaline Phosphatase 80 U/L (34-104) 08/21/23 21:58 Troponin I High Sens 4.2 pg/ml (0-14) 08/21/23 21:58 Total Protein 7.0 gm/dl (6.0-8.3) 08/21/23 21:58 Albumin 3.6 gm/dl (3.4-5.0) 08/21/23 21:58 Globulin 3.4 gm/dl (2.5-4.0) 08/21/23 21:58 Albumin/Globulin Ratio 1.1 (0.9-2) 08/21/23 21:58 Lipase 16 U/L (11-82) 08/21/23 21:58 POC Stool Occult Blood Positive (Negative) A 08/22/23 01:49 Crossmatch See Detail 08/22/23 00:37 PG Care Time/CCT Total # of Minutes Spent Total Time Spent with Patient: Total time spent is greater than 50% in coordination of care (as documented) at patient's floor/unit and/or counseling patient: Coding Level of Care Code 82794 INT INP/OBS CARE 2/55MIN Diagnoses Severe anemia D64.9 FTT (failure to thrive) in adult R62.7 Crohn's disease of colon with fistula K50.113 History of DVT (deep vein thrombosis) Z86.718
[2023-08-22] MEDS ORDERED: TPN SCH (03:15)
[2023-08-22] MEDS ORDERED: FAT EMULSION SCH (03:15)
--- NOTE | 2023-08-22 03:50 | Ultrasound Report ---
Exam(s): US VENOUS LEFT LOWER EXTREMITY EXAM: US Duplex Left Lower Extremity Veins CLINICAL HISTORY: Reason for exam: known DVT,. TECHNIQUE: Real-time duplex ultrasound scan of the left lower extremity veins integrating B-mode two-dimensional vascular structure, Doppler spectral analysis, color flow Doppler imaging and compression. COMPARISON: None. FINDINGS: Deep veins: Unremarkable. No DVT in the visualized common femoral, femoral, proximal deep femoral or popliteal veins. The veins demonstrate normal color flow, are normally compressible, with normal phasic flow and/or augmentation response. Superficial veins: Unremarkable. No thrombus in the visualized great saphenous vein. Soft tissues: No acute findings. No popliteal cyst. IMPRESSION: No ultrasonographic evidence of deep venous thrombosis involving the left lower extremity. Electronically signed by: Radha Jones MD 08/22/23 03:49 AM
[2023-08-22] MEDS: PLASMA-LYTE A 1,000 ML IV SCH (04:09)
[2023-08-22] MEDS ORDERED: ACETAMINOPHEN 325 MG TAB PO PRN (05:55)
--- NOTE | 2023-08-22 05:56 | Emergency Department Note ---
ED Provider Note CHIEF COMPLAINT: Shortness of breath HISTORY OF PRESENT ILLNESS: This 37-year-old female patient past medical history of DVT, Crohn's disease status post colostomy, severe protein deficit malnutrition, UTI, MRSA, presents to the emergency department [] REVIEW OF SYSTEMS: A review of systems was performed with positives and pertinent negatives listed in the history of present illness. 10 systems were reviewed and are otherwise negative. ALLERGIES: see below MEDICATIONS: see below PMH: see below SOCIAL HISTORY: see below DDx: [] PHYSICAL EXAM: Vital signs reviewed. General: Well-appearing, in no significant distress. HEENT: No scleral icterus, PERRLA, neck supple. Atraumatic. Cardiovascular: Regular rate and rhythm, no extra sounds. Pulmonary: Clear to auscultation bilaterally, normal work of breathing. Abdomen: Soft, nontender, nondistended, positive bowel sounds. Musculoskeletal: Atraumatic, no peripheral edema. Neurologic: Patient awake alert and oriented x 3, speech is clear Skin: Warm, dry, no rash EMERGENCY DEPARTMENT COURSE/MDM: [] MONITORING: An order for cardiac monitoring was placed and the patient is noted to be in a [] at [] beats per minute. RADIOLOGY: EKG: DISPOSITION: Past Med/Surg History Medical History (Updated 08/22/23 @ 03:10 by Danelle Cooper DO) Crohn's disease of colon with fistula Endometriosis History of MRSA infection "per records" Protein calorie malnutrition Rheumatoid arthritis Severe protein-calorie malnutrition Small bowel obstruction Surgical History H/O colectomy "total colectomy with ileoanal anastomosis 03/2006" H/O resection of large bowel multiple resections and clean outs History of rectal surgery "hundreds of fistula surgeries" S/P exploratory laparotomy endometriosis Family History Other Blood clot in vein Social History Smoking Status: Current every day smoker Tobacco Type: E-cigarettes / Vaping Cigarettes Per Day: 1 cigarette per day; Second Hand Exposure: No; Do You Dip or Chew Tobacco: No; Hx Alcohol Use: Yes (hx alcoholism) Hx Substance Use: No Preferred Language: Ecuadorean Communication Ability: Effective Certified Composites Technician Required: No Beliefs That Will Affect Care: None Current Living Situation: Family Current Living Situation Comment: Lives at home with daughter Feels Safe at Home: Yes Assistive Devices: Walker Allergies Allergies Allergy/AdvReac Type Severity Reaction Status Date / Time aspirin Allergy Severe ANAPHYLAXIS Unverified 07/06/23 20:07 infliximab Allergy Severe ANAPHYLAXIS Verified 07/06/23 20:07 NSAIDS (Non-Steroidal Allergy Unknown THROAT Verified 07/06/23 20:07 Anti-Inflamma SWELLING Sulfa (Sulfonamide Allergy Unknown throat Unverified 07/06/23 20:07 Antibiotics) swelling bee venom protein (honey bee) Allergy Anaphylaxis Verified 07/06/23 20:07 ketorolac [From Toradol] Allergy Swelling Verified 07/06/23 20:07 of Lip/Tongue/Throat azathioprine AdvReac Unknown MIGRAINE Verified 07/06/23 20:07 Home Meds Home Medications Medication Instructions Recorded Confirmed cyanocobalamin (vitamin B-12) 1,000 mcg IM MO 08/26/22 08/04/23 1,000 mcg/mL injection solution epinephrine 0.3 mg/0.3 mL 0.3 mg IM Q4H PRN Allergic Reaction 08/26/22 08/04/23 injection, auto-injector fluticasone fur. 200 mcg-umeclid 1 inh inhalation DAILY PRN 08/26/22 08/04/23 62.5 mcg-vilant 25 mcg Shortness Of Breath Or Wheezing inhalat.powder (Trelegy Ellipta) buprenorphine HCl 8 mg sublingual 8 mg sublingual DIRECTED 04/08/23 08/04/23 tablet pediatric [id number]-[id number] 2 tab PO QAM 07/06/23 08/04/23 (Flintstones Complete (iron) chewable tablet) Tpn Solution See Rx Instructions .Route .COMPLEX 08/04/23 08/04/23 fat emulsion See Rx Instructions .Route .COMPLEX 08/04/23 08/04/23 fondaparinux 5 mg/0.4 mL 5 mg subcut PM 08/04/23 08/04/23 subcutaneous solution syringe Results & Data (ED) Vital Signs Vital Signs - 24 hr 08/21/23 21:26 08/21/23 23:32 08/21/23 23:37 Temperature 36.7 C Temperature Source Skin Pulse Rate 119 H 106 H Respiratory Rate 20 Blood Pressure 110/69 Blood Pressure Mean 82 Pulse Oximetry 98 98 Oxygen Delivery Method Room Air Room Air Oxygen Flow Rate 0 Sepsis Recent Fever Within 48 Hours No Sepsis New/Unexplained Change in Mental Status No Sepsis Action Taken by Nursing No Action Required Oxygen Flow Rate - Titration 0 08/22/23 00:00 08/22/23 01:09 08/22/23 00:30 Temperature Temperature Source Pulse Rate 109 H 105 H Respiratory Rate 14 18 Blood Pressure 90/64 L 110/78 Blood Pressure Mean 72 88 Pulse Oximetry 99 98 100 Oxygen Delivery Method Room Air Oxygen Flow Rate Sepsis Recent Fever Within 48 Hours Sepsis New/Unexplained Change in Mental Status Sepsis Action Taken by Nursing Oxygen Flow Rate - Titration 08/22/23 01:00 08/22/23 01:30 08/22/23 03:00 Temperature Temperature Source Pulse Rate 110 H 107 H 104 H Respiratory Rate 16 20 20 Blood Pressure 103/66 88/67 L Blood Pressure Mean 78 74 Pulse Oximetry 100 100 98 Oxygen Delivery Method Oxygen Flow Rate Sepsis Recent Fever Within 48 Hours Sepsis New/Unexplained Change in Mental Status Sepsis Action Taken by Nursing Oxygen Flow Rate - Titration Laboratory Data 08/21/23 21:58 08/21/23 21:58 Lab Results 08/21/23 08/21/23 08/22/23 Range/Units 21:58 21:58 00:37 WBC 17.89 H (4.8-10.8) K/ul RBC 3.17 L (4.20-5.40) M/uL Hgb 7.2 L (12.0-16.0) g/dl Hct 25.4 L (37.0-47.0) % MCV 80.1 (80.0-100.0) fL MCH 22.7 L (25.0-34.0) pg MCHC 28.3 L (32.0-36.0) g/dL RDW Std Deviation 63.1 H (36.4-46.3) fL RDW Coeff of Quoc 21.7 H (11.5-14.5) % Plt Count 371 (130-400) K/uL MPV 8.7 L (9.4-12.4) fL Immature Gran % (Auto) 1.5 % Neut % (Auto) 91.9 % Lymph % (Auto) 2.9 % Eddy % (Auto) 3.6 % Eos % (Auto) 0.0 % Baso % (Auto) 0.1 % Neut # (Auto) 16.45 H (1.40-6.50) K/uL Lymph # (Auto) 0.51 L (1.20-3.40) K/uL Eddy # (Auto) 0.65 H (0.11-0.59) K/uL Eos # (Auto) 0.00 (0.00-0.50) K/uL Baso # (Auto) 0.02 (0.00-0.20) K/uL Immature Gran # (Auto) 0.26 H (0.01-0.20) K/uL Polychromasia 1+ Hypochromasia Present Sodium 134 L (136-145) mmol/L Potassium 4.2 (3.5-5.1) mmol/L Chloride 98 (98-107) mmol/L Carbon Dioxide 29 (21-32) mmol/L Anion Gap 7 (3-11) BUN 13 (6-23) mg/dl Creatinine 0.53 L (0.6-1.2) mg/dl Est Cr Clr Drug Dosing 89.3 ml/min Est GFR ( Amer) 138.6 ml/min Est GFR (Non-Af Amer) 119.6 ml/min BUN/Creatinine Ratio 24.5 H (10-20) Glucose 112 H (70-99(Fasting)) mg/dl Calcium 9.3 (8.6-10.3) mg/dl Total Bilirubin 0.4 (0.2-1.0) mg/dl AST 8 L (13-39) U/L ALT 11 (7-52) U/L Alkaline Phosphatase 80 (34-104) U/L Troponin I High Sens 4.2 (0-14) pg/ml Total Protein 7.0 (6.0-8.3) gm/dl Albumin 3.6 (3.4-5.0) gm/dl Globulin 3.4 (2.5-4.0) gm/dl Albumin/Globulin Ratio 1.1 (0.9-2) Lipase 16 (11-82) U/L POC Stool Occult Blood (Negative) Blood Type B Positive Antibody Screen POSITIVE A Crossmatch See Detail 08/22/23 Range/Units 01:49 WBC (4.8-10.8) K/ul RBC (4.20-5.40) M/uL Hgb (12.0-16.0) g/dl Hct (37.0-47.0) % MCV (80.0-100.0) fL MCH (25.0-34.0) pg MCHC (32.0-36.0) g/dL RDW Std Deviation (36.4-46.3) fL RDW Coeff of Qouc (11.5-14.5) % Plt Count (130-400) K/uL MPV (9.4-12.4) fL Immature Gran % (Auto) % Neut % (Auto) % Lymph % (Auto) % Eddy % (Auto) % Eos % (Auto) % Baso % (Auto) % Neut # (Auto) (1.40-6.50) K/uL Lymph # (Auto) (1.20-3.40) K/uL Eddy # (Auto) (0.11-0.59) K/uL Eos # (Auto) (0.00-0.50) K/uL Baso # (Auto) (0.00-0.20) K/uL Immature Gran # (Auto) (0.01-0.20) K/uL Polychromasia Hypochromasia Sodium (136-145) mmol/L Potassium (3.5-5.1) mmol/L Chloride (98-107) mmol/L Carbon Dioxide (21-32) mmol/L Anion Gap (3-11) BUN (6-23) mg/dl Creatinine (0.6-1.2) mg/dl Est Cr Clr Drug Dosing ml/min Est GFR ( Amer) ml/min Est GFR (Non-Af Amer) ml/min BUN/Creatinine Ratio (10-20) Glucose (70-99(Fasting)) mg/dl Calcium (8.6-10.3) mg/dl Total Bilirubin (0.2-1.0) mg/dl AST (13-39) U/L ALT (7-52) U/L Alkaline Phosphatase (34-104) U/L Troponin I High Sens (0-14) pg/ml Total Protein (6.0-8.3) gm/dl Albumin (3.4-5.0) gm/dl Globulin (2.5-4.0) gm/dl Albumin/Globulin Ratio (0.9-2) Lipase (11-82) U/L POC Stool Occult Blood Positive A (Negative) Blood Type Antibody Screen Crossmatch Administered Medications Parenteral Electrolytes (Plasma-Lyte A Ph 7.4) 1,000 mls @ 80 mls/hr IV .[id number] XENA Stop: 08/23/23 04:14 Last Admin: 08/22/23 04:09 Dose: 80 mls/hr Documented By: DEDRICK Discontinued Medications Buprenorphine/Naloxone (Buprenorphine/Naloxone 8/2 Mg Tab) 1 tab SL NOW STA Stop: 08/22/23 00:29 Last Admin: 08/22/23 00:47 Dose: 1 tab Documented By: DEDRICK Sodium Chloride (Nss) 1,000 mls @ 999 mls/hr IV .Q1H1M ONE Stop: 08/22/23 01:01 Last Infusion: 08/22/23 02:03 Dose: 0 mls/hr Documented By: Admin: 08/22/23 00:39 Dose: 999 mls/hr Documented By: DEDRICK Imaging Data Radiologist's Impression: Venous Doppler Study 08/22/23 00:22 Exam(s): US VENOUS LEFT LOWER EXTREMITY EXAM: US Duplex Left Lower Extremity Veins CLINICAL HISTORY: Reason for exam: known DVT,. TECHNIQUE: Real-time duplex ultrasound scan of the left lower extremity veins integrating B-mode two-dimensional vascular structure, Doppler spectral analysis, color flow Doppler imaging and compression. COMPARISON: None. FINDINGS: Deep veins: Unremarkable. No DVT in the visualized common femoral, femoral, proximal deep femoral or popliteal veins. The veins demonstrate normal color flow, are normally compressible, with normal phasic flow and/or augmentation response. Superficial veins: Unremarkable. No thrombus in the visualized great saphenous vein. Soft tissues: No acute findings. No popliteal cyst. IMPRESSION: No ultrasonographic evidence of deep venous thrombosis involving the left lower extremity. Electronically signed by: Radha Jones MD 08/22/23 03:49 AM Discharge Plan Visit Data Chief Complaint: Shortness of Breath/Dyspnea Stated Complaint: SHORTNESS OF BREATH, WARM FEELING ED Provider: Kassi Wu Discharge Instructions Interventions: ED Discharge Assessment Last Done: 08/22/23 05:55
[2023-08-22] MEDS ORDERED: FONDAPARINUX 2.5 MG/0.5 ML SYR SQ SCH (07:00)
[2023-08-22 08:10] LABS: Anion Gap 4 (3-11); BUN Creatinine Ratio 30.8 (10-20); Blood Urea Nitrogen 12 mg/dl (6-23); Calcium 8.1 mg/dl (8.6-10.3); Carbon Dioxide 29 mmol/L (21-32); Chloride 102 mmol/L (98-107); Creatinine Clr Calc Pharmacy 121.4 ml/min; Est GFR (African American) > 150.0 ml/min; Est GFR (Non-African American) 132.3 ml/min; Glucose 113 mg/dl (70-99(Fasting)); Magnesium 1.9 mg/dl (1.7-2.4); Phosphorus 3.6 mg/dl (2.5-4.9); Potassium 3.9 mmol/L (3.5-5.1); Sodium 135 mmol/L (136-145); Triglycerides 81 mg/dl (0-150)
[2023-08-22 08:23] LABS: Hematocrit (blood only) 20.5 % (37.0-47.0); Hemoglobin 5.8 g/dl (12.0-16.0); Mean Corpuscular Hemoglobin 22.9 pg (25.0-34.0); Mean Corpuscular Hgb Conc 28.3 g/dL (32.0-36.0); Mean Platelet Volume 8.4 fL (9.4-12.4); Platelet Count 273 K/uL (130-400); RDW Coefficient of Variation 21.3 % (11.5-14.5); RDW Standard Deviation 63.1 fL (36.4-46.3); Red Blood Count 2.53 M/uL (4.20-5.40); White Blood Count 10.96 K/ul (4.8-10.8)
--- NOTE | 2023-08-22 08:25 | XRay Report ---
XR chest 1V portable HISTORY: 37 years-old Female Chest pain, nonspecific COMPARISON: 07/06/2023 TECHNIQUE: PA view of the chest FINDINGS: Cardiac mediastinal and hilar silhouettes are within normal limits. No pneumothorax, pleural effusion , airspace consolidation or pulmonary edema. A left-sided PICC is noted with distal tip in the expect ed location of the inferior SVC. Bones appear grossly intact. IMPRESSION: 1. No acute process of the chest. 2. Left-sided PICC in place. ACT 112: Negative or not required by law. The above report was generated using voice recognition software. It may contain grammatical, syntax o r spelling errors. Electronically signed by: Renny Colon M.D. 08/22/2023 8:24 AM
[2023-08-22] MEDS: AMOXICILLIN 875 MG TAB PO SCH ×2 (08:40→21:07)
[2023-08-22] MEDS: buprenorphine HCL 8 MG SUBL SL SCH ×3 (08:40→18:30)
[2023-08-22] MEDS: PANTOprazole 40 MG TAB PO SCH (08:41)
[2023-08-22] MEDS: FONDAPARINUX 5 MG/0.4 ML SQ SCH (08:42)
[2023-08-22] MEDS ORDERED: predniSONE 10 MG TABLET PO SCH (09:00)
[2023-08-22 10:22] LABS: Iron < 10 mcg/dl (35-150); Unsaturated Iron Binding Cap 256 mcg/dl (155-355)
[2023-08-22 10:39] LABS: Ferritin 29.7 ng/ml (8-388)
[2023-08-22 13:01] LABS: C Reactive Protein 10.95 mg/dl (0-0.5)
--- NOTE | 2023-08-22 13:10 | Electrocardiogram Report ---
Test Reason : Blood Pressure : / mmHG Vent. 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
--- NOTE | 2023-08-22 13:28 | Gastrointestinal Consultation ---
Date of Consultation August 22, 2023 Assessment & Plan (1) Crohn's disease of colon with fistula: (2) Iron deficiency anemia: Plan Given medical complexity, suspect the patient's anemia is combination of nutritional deficiency, reduced absorptive ability and bleeding from anticoa gulation. -Recommend blood transfusion with goal of ~8. -No plan for emergent GI work up as no current GIB. -Follow up with [facility] for more definitive work up and surgical intervention as planned. -Continue supportive care with corticosteroids as prescribed. Thank you for allowing us to participate in the care of this patient. If you have any questions or concerns, please do not hesitate to contact us. Supervising Physician Co-Signing Physician Notes I saw the patient and agree with the findings as documented by SARAY Caldwell History of Present Illness Reason for Consultation: Anemia, Crohn's disease Requesting Physician: Dr. Galvez Attending Physician: Fabian Galvez History of Present Illness Patient is a 37 y.o. female with a history of fistulizing Crohn's colitis diagnosed at the age of 11 admitted with anemia. She is status post resection with diverting loop ostomy and has an abdominal wall fistula that is actively draining into an ostomy bag as well. She reports she has been noticing bright red blood intermittently in her ostomy bag for the past several weeks and states she has reported this symptom to her surgical team at [facility] and therefore has been using her Fondaparinux every other day. She is planned for repair of the fistula and revision of her ostomy at [facility] once she is improved from a nutrition standpoint. States she has been receiving home health TPN for nutritional support. She is not on any chronic therapy for Crohn's but is currently on high dose steroids. She is admitted with symptoms of symptomatic anemia with dizziness, fatigue and PAUL. H&H was noted to be 5.8 and 20.5. She is ordered a blood transfusion. No abdominal pain, vomiting or other GI complaints. Allergies Allergy/AdvReac Type Severity Reaction Status Date / Time aspirin Allergy Severe ANAPHYLAXIS Unverified 07/06/23 20:07 infliximab Allergy Severe ANAPHYLAXIS Verified 07/06/23 20:07 NSAIDS (Non-Steroidal Allergy Unknown THROAT Verified 07/06/23 20:07 Anti-Inflamma SWELLING Sulfa (Sulfonamide Allergy Unknown throat Unverified 07/06/23 20:07 Antibiotics) swelling bee venom protein (honey bee) Allergy Anaphylaxis Verified 07/06/23 20:07 ketorolac [From Toradol] Allergy Swelling Verified 07/06/23 20:07 of Lip/Tongue/Throat azathioprine AdvReac Unknown MIGRAINE Verified 07/06/23 20:07 Home Medications Medication Instructions Recorded Confirmed Type epinephrine 0.3 mg/0.3 mL 0.3 mg IM Q4H PRN Allergic Reaction 08/26/22 08/22/23 History injection, auto-injector buprenorphine HCl 8 mg sublingual 8 mg sublingual TID 04/08/23 08/22/23 History tablet Tpn Solution See Rx Instructions .Route .COMPLEX 08/04/23 08/22/23 History fat emulsion See Rx Instructions .Route .COMPLEX 08/04/23 08/22/23 History fondaparinux 5 mg/0.4 mL See Rx Instructions .Route .COMPLEX 08/04/23 08/22/23 History subcutaneous solution syringe amoxicillin 875 mg tablet 875 mg PO BID 08/22/23 08/22/23 History pantoprazole 20 mg tablet,delayed 20 mg PO DAILY 08/22/23 08/22/23 History release prednisone 20 mg tablet 30 mg PO DAILY 08/22/23 08/22/23 History Patient History Medical History Crohn's disease of colon with fistula Endometriosis History of MRSA infection "per records" Protein calorie malnutrition Rheumatoid arthritis Severe protein-calorie malnutrition Small bowel obstruction Surgical History H/O colectomy "total colectomy with ileoanal anastomosis 03/2006" H/O resection of large bowel multiple resections and clean outs History of rectal surgery "hundreds of fistula surgeries" S/P exploratory laparotomy endometriosis Family History Other Blood clot in vein Social History Smoking Status: Former smoker Tobacco Type: Cigarettes Cigarettes Per Day: 1 cigarette per day; Second Hand Exposure: No; Do You Dip or Chew Tobacco: No; Hx Alcohol Use: No Hx Substance Use: No Preferred Language: Vietnamese Communication Ability: Effective Telephone Exchange Operator Required: No Beliefs That Will Affect Care: None Current Living Situation: Family Current Living Situation Comment: Lives at home with daughter Feels Safe at Home: Yes Assistive Devices: None Review of Systems Constitutional: as per Subjective / HPI; no fever and no chills Gastrointestinal: as per Subjective / HPI Physical Exam Constitutional: + cachectic; no acute distress Eyes: EOM intact bilaterally Neck: normal visual inspection Respiratory: normal respiratory effort, lungs clear to auscultation Cardiovascular: Rate/Rhythm: regular rate and regular rhythm Gastrointestinal (Abdomen): Inspection/Auscultation: normal bowel sounds; abdomen not distended Percussion/Palpation: abdomen soft; abdomen nontender ostomy with no blood noted. Psychiatric: A+Ox3, euthymic affect Results & Data Vital Signs (Past 12 Hours) Vital Signs Temp Pulse Pulse Resp BP BP Pulse Ox 08/22/23 11:22 36.3 C L 100 H 17 96/67 L 100 08/22/23 10:06 111 H 18 100/65 100 08/22/23 08:59 116 H 08/22/23 07:36 101 H 16 91/57 L 08/22/23 06:53 97 H 08/22/23 06:00 108 H 14 92/62 L 97 08/22/23 05:30 103 H 14 95/60 L 96 08/22/23 04:30 102 H 14 96/68 L 98 08/22/23 04:00 96 H 16 87/62 L 95 08/22/23 03:00 104 H 20 88/67 L 98 08/22/23 03:44 96 H 08/22/23 01:30 107 H 20 100 O2 Del Method 08/22/23 11:22 Room Air 08/22/23 10:06 Room Air 08/22/23 08:59 08/22/23 07:36 08/22/23 06:53 08/22/23 06:00 08/22/23 05:30 08/22/23 04:30 08/22/23 04:00 08/22/23 03:00 08/22/23 03:44 08/22/23 01:30 Diagnostic Findings Laboratory Results WBC 10.96 K/ul (4.8-10.8) H 08/22/23 07:37 RBC 2.53 M/uL (4.20-5.40) L 08/22/23 07:37 Hgb 5.8 g/dl (12.0-16.0) L* 08/22/23 07:37 Hct 20.5 % (37.0-47.0) L* 08/22/23 07:37 MCV 81.0 fL (80.0-100.0) 08/22/23 07:37 MCH 22.9 pg (25.0-34.0) L 08/22/23 07:37 MCHC 28.3 g/dL (32.0-36.0) L 08/22/23 07:37 RDW Std Deviation 63.1 fL (36.4-46.3) H 08/22/23 07:37 RDW Coeff of Quoc 21.3 % (11.5-14.5) H 08/22/23 07:37 Plt Count 273 K/uL (130-400) 08/22/23 07:37 MPV 8.4 fL (9.4-12.4) L 08/22/23 07:37 Immature Gran % (Auto) 1.5 % 08/21/23 21:58 Neut % (Auto) 91.9 % 08/21/23 21:58 Lymph % (Auto) 2.9 % 08/21/23 21:58 Ripley % (Auto) 3.6 % 08/21/23 21:58 Eos % (Auto) 0.0 % 08/21/23 21:58 Baso % (Auto) 0.1 % 08/21/23 21:58 Neut # (Auto) 16.45 K/uL (1.40-6.50) H 08/21/23 21:58 Lymph # (Auto) 0.51 K/uL (1.20-3.40) L 08/21/23 21:58 Ripley # (Auto) 0.65 K/uL (0.11-0.59) H 08/21/23 21:58 Eos # (Auto) 0.00 K/uL (0.00-0.50) 08/21/23 21:58 Baso # (Auto) 0.02 K/uL (0.00-0.20) 08/21/23 21:58 Immature Gran # (Auto) 0.26 K/uL (0.01-0.20) H 08/21/23 21:58 Polychromasia 1+ 08/21/23 21:58 Hypochromasia Present 08/21/23 21:58 Sodium 135 mmol/L (136-145) L 08/22/23 07:37 Potassium 3.9 mmol/L (3.5-5.1) 08/22/23 07:37 Chloride 102 mmol/L (98-107) 08/22/23 07:37 Carbon Dioxide 29 mmol/L (21-32) 08/22/23 07:37 Anion Gap 4 (3-11) 08/22/23 07:37 BUN 12 mg/dl (6-23) 08/22/23 07:37 Creatinine 0.39 mg/dl (0.6-1.2) L 08/22/23 07:37 Est Cr Clr Drug Dosing 121.4 ml/min 08/22/23 07:37 Est GFR ( Amer) > 150.0 ml/min 08/22/23 07:37 Est GFR (Non-Af Amer) 132.3 ml/min 08/22/23 07:37 BUN/Creatinine Ratio 30.8 (10-20) H 08/22/23 07:37 Glucose 113 mg/dl (70-99(Fasting)) H 08/22/23 07:37 Calcium 8.1 mg/dl (8.6-10.3) L 08/22/23 07:37 Phosphorus 3.6 mg/dl (2.5-4.9) 08/22/23 07:37 Magnesium 1.9 mg/dl (1.7-2.4) 08/22/23 07:37 Iron < 10 mcg/dl (35-150) L 08/22/23 07:37 TIBC TNP 08/22/23 07:37 Unsaturated IBC 256 mcg/dl (155-355) 08/22/23 07:37 Transferrin % Sat TNP 08/22/23 07:37 Ferritin 29.7 ng/ml (8-388) 08/22/23 07:37 Total Bilirubin 0.4 mg/dl (0.2-1.0) 08/21/23 21:58 AST 8 U/L (13-39) L 08/21/23 21:58 ALT 11 U/L (7-52) 08/21/23 21:58 Alkaline Phosphatase 80 U/L (34-104) 08/21/23 21:58 Troponin I High Sens 4.2 pg/ml (0-14) 08/21/23 21:58 C-Reactive Protein 10.95 mg/dl (0-0.5) H 08/22/23 07:37 Total Protein 7.0 gm/dl (6.0-8.3) 08/21/23 21:58 Albumin 3.6 gm/dl (3.4-5.0) 08/21/23 21:58 Globulin 3.4 gm/dl (2.5-4.0) 08/21/23 21:58 Albumin/Globulin Ratio 1.1 (0.9-2) 08/21/23 21:58 Triglycerides 81 mg/dl (0-150) 08/22/23 07:37 Lipase 16 U/L (11-82) 08/21/23 21:58 Nasal Screen MRSA (PCR) Negative (Negative) 08/22/23 05:20 POC Stool Occult Blood Positive (Negative) A 08/22/23 01:49 Blood Type B Positive 08/22/23 00:37 Antibody Screen POSITIVE A 08/22/23 00:37 Antibody Identification Anti-E Anti-K 08/22/23 00:37 Antibody Identification Anti-E Anti-K 08/22/23 00:37 Antibody ID Comment 08/22/23 00:37 Crossmatch See Detail 08/22/23 00:37 Impressions Chest X-Ray 08/21/23 21:30 XR chest 1V portable HISTORY: 37 years-old Female Chest pain, nonspecific COMPARISON: 07/06/2023 TECHNIQUE: PA view of the chest FINDINGS: Cardiac mediastinal and hilar silhouettes are within normal limits. No pneumothorax, pleural effusion, airspace consolidation or pulmonary edema. A left-sided PICC is noted with distal tip in the expected location of the inferior SVC. Bones appear grossly intact. IMPRESSION: 1. No acute process of the chest. 2. Left-sided PICC in place. ACT 112: Negative or not required by law. The above report was generated using voice recognition software. It may contain grammatical, syntax or spelling errors. Electronically signed by: Renny Colon M.D. 08/22/2023 8:24 AM Venous Doppler Study 08/22/23 00:22 Exam(s): US VENOUS LEFT LOWER EXTREMITY EXAM: US Duplex Left Lower Extremity Veins CLINICAL HISTORY: Reason for exam: known DVT,. TECHNIQUE: Real-time duplex ultrasound scan of the left lower extremity veins integrating B-mode two-dimensional vascular structure, Doppler spectral analysis, color flow Doppler imaging and compression. COMPARISON: None. FINDINGS: Deep veins: Unremarkable. No DVT in the visualized common femoral, femoral, proximal deep femoral or popliteal veins. The veins demonstrate normal color flow, are normally compressible, with normal phasic flow and/or augmentation response. Superficial veins: Unremarkable. No thrombus in the visualized great saphenous vein. Soft tissues: No acute findings. No popliteal cyst. IMPRESSION: No ultrasonographic evidence of deep venous thrombosis involving the left lower extremity. Electronically signed by: Radha Jones MD 08/22/23 03:49 AM PG Care Time/CCT Total # of Minutes Spent Total Time Spent with Patient: Total time spent is greater than 50% in coordination of care (as documented) at patient's floor/unit and/or counseling patient: Coding Level of Care Code 89271 IN/OBS CONSULT LVL 4,60M Diagnoses Crohn's disease of colon with fistula K50.113 Iron deficiency anemia D50.9
--- NOTE | 2023-08-22 14:54 | Pharmacy Report ---
Pharmacy PN Initial Consult - Date of Service August 22, 2023 - Scope Pharmacy has been consulted to manage parenteral nutrition orders and order appropriate labs. As part of the Nutrition Support Team guidelines, pharmacy will work in conjunction with dietary when determining the patients caloric needs. - Subjective The patient is a 37 year old F admitted on 08/22/23 03:04 for anemia, failure to thrive, Crohn's disease. Patient is to continue parenteral nutrition as she was receiving prior to admission. Pertinent PMH: * Crohn's disease * Total colectomy, ileostomy * Severe protein-calorie malnutrition, on TPN * Exp lap for endometriosis * Rheumatoid arthritis * H/O DVT - Objective Height: 5 ft 2 in Weight: 39.7 kg Diet: Regular Vascular Access:: PICC Intake & Output (Last 24Hrs): Intake & Output 08/20/23 08/21/23 08/22/23 08/23/23 06:59 06:59 06:59 06:59 Intake Total 1000 / 1000 0 / 0 Balance 1000 / 1000 0 / 0 Weight 39.7 kg 39.7 kg Additional Fluid Losses/Gains:: Plasmalyte A 80cc/hr x 2 liters total Laboratory Data (Last 24 Hrs):: 08/21/23 08/22/23 21:58 07:37 Sodium 134 L 135 L Potassium 4.2 3.9 Chloride 98 102 Carbon Dioxide 29 29 BUN 13 12 Creatinine 0.53 L 0.39 L Glucose 112 H 113 H Calcium 9.3 8.1 L Phosphorus 3.6 Magnesium 1.9 Total Bilirubin 0.4 AST 8 L ALT 11 Alkaline Phosphatase 80 Albumin 3.6 Triglycerides 81 Recent Pertinent Medications:: Methylprednisolone 20mg IV Q 8 hrs Pantoprazole 40mg PO daily Nutrition Assessment:: Please refer to the Notes section of the EMR for the most recent cargoman note. - Assessment Patient admitted overnight for severe anemia, failure to thrive, malnutrition, Crohn's dz with TPN needs. Electrolytes reviewed. No abnormalities noted. Consulted with [employer] regarding macronutrient needs (see note) Plan to provide macros as recommended by Dietary, will give lipids as 50grams every other day as was done in outpt setting. TGs reviewed and not elevated. Patient has central access (PICC line). Standard TPN lab monitoring has been ordered. - Plan For day 1 of PN administration, the following will be ordered: Macronutrients Amino acids 80 grams/day Dextrose 140 grams/day Lipids 50 grams/day (will provide every other day) Micronutrients Combined electrolytes 40 mL - contains 35 mEq Na, 20 meq K, 4.5 mEq Ca, 5 mEq Mg, 35 mEq Cl, 29.5 mEq acetate per 20 mL Sodium phosphate 12 MMol Sodium chloride 0 mEq Sodium acetate 0 mEq Potassium phosphate 0 mMol Potassium chloride 0 mEq Potassium acetate 0 mEq Magnesium sulfate 0 mEq Calcium gluconate 0 mEq Multivitamins 10 mL Trace Elements 1 mL Additional additives: Folic Acid 1mg, Thiamine 100mg Total volume 1056.2 mL + 250mL Lipids (1306.2mL) to be infused over 12 hrs (2200 thur 1000) will provide 1296 kcal/day Labs to be ordered per PN order protocol Pharmacy will follow and adjust parenteral nutrition orders on a daily basis. Thank you.
--- NOTE | 2023-08-22 15:50 | XRay Report ---
KUB CLINICAL HISTORY: Crohn's disease. FINDINGS: 2 AP, portable, supine abdominal radiographs are correlated with abdominal CT dated 3. There is a nonobstructed abdominal bowel gas pattern. No evidence of intraperitoneal free air is s een on these supine images. There are no abnormal abdominal calcifications. The bony structures appea r intact. The lung bases are clear as imaged. IMPRESSION: No acute abnormality is identified. Electronically signed by: Olivier Camarena M.D. 08/22/2023 3:49 PM
[2023-08-22] MEDS: methylPREDNISolone 20 MG in SYRINGE 0 ML IV SCH ×2 (16:27→21:14)
[2023-08-22 18:10] LABS: Adenovirus F 40/41 PCR Not Detected (NotDetected); Astrovirus PCR Not Detected (NotDetected); Campylobacter PCR Not Detected (NotDetected); Cryptosporidium PCR Not Detected (NotDetected); Cyclospora cayetanensis PCR Not Detected (NotDetected); Entamoeba histolytica PCR Not Detected (NotDetected); Enteroaggregative E.coli(EAEC) Not Detected (NotDetected); Enteropathogenic E.coli (EPEC) Not Detected (NotDetected); Enterotoxigenic E.coli (ETEC) Not Detected (NotDetected); Giardia lamblia PCR Not Detected (NotDetected); Norovirus GI/GII PCR Not Detected (NotDetected); Plesiomonas shigelloides PCR Not Detected (NotDetected); Rotavirus A PCR Not Detected (NotDetected); Salmonella PCR Not Detected (NotDetected); Sapovirus PCR Not Detected (NotDetected); Shiga-like Toxin E.coli (STEC) Not Detected (NotDetected); Shigella/Enteroinvasive E.coli Not Detected (NotDetected); Vibrio cholerae PCR Not Detected (NotDetected); Vibrio species PCR Not Detected (NotDetected); Yersinia enterocolitica PCR Not Detected (NotDetected)
[2023-08-22 18:24] LABS: Hematocrit (blood only) 27.9 % (37.0-47.0); Hemoglobin 8.5 g/dl (12.0-16.0)
[2023-08-22] MEDS ORDERED: [UNRECOGNIZED DRUG - OTHER] IV SCH (22:00)
[2023-08-22] MEDS ORDERED: CLINOLIPID 20% IV FAT EMULSION 250 ML IV SCH (22:00)
[2023-08-22] MEDS ORDERED: CENTRAL TPN IV SCH (22:00)
[2023-08-23] MEDS: LIDOCAINE 5% 1 PATCH TD SCH ×2 (00:53→21:40)
[2023-08-23] MEDS: STOP CLINOLIPID SCH (04:33)
[2023-08-23] MEDS: methylPREDNISolone 20 MG in SYRINGE 0 ML IV SCH ×3 (06:17→21:49)
[2023-08-23 07:18] LABS: Hematocrit (blood only) 26.6 % (37.0-47.0); Hemoglobin 7.6 g/dl (12.0-16.0); Mean Corpuscular Hemoglobin 24.2 pg (25.0-34.0); Mean Corpuscular Hgb Conc 28.6 g/dL (32.0-36.0); Mean Corpuscular Volume 84.7 fL (80.0-100.0); Mean Platelet Volume 8.9 fL (9.4-12.4); Platelet Count 290 K/uL (130-400); RDW Coefficient of Variation 20.7 % (11.5-14.5); Red Blood Count 3.14 M/uL (4.20-5.40)
[2023-08-23 07:39] LABS: Alanine Aminotransferase 8 U/L (7-52); Albumin Level 2.9 gm/dl (3.4-5.0); Alkaline Phosphatase 56 U/L (34-104); Anion Gap 5 (3-11); Aspartate Aminotransferase 6 U/L (13-39); Bilirubin,Total 0.4 mg/dl (0.2-1.0); Blood Urea Nitrogen 22 mg/dl (6-23); C Reactive Protein 4.67 mg/dl (0-0.5); Calcium 8.5 mg/dl (8.6-10.3); Carbon Dioxide 25 mmol/L (21-32); Chloride 105 mmol/L (98-107); Creatinine Clr Calc Pharmacy 165.4 ml/min; Est GFR (African American) > 150.0 ml/min; Est GFR (Non-African American) 142.7 ml/min; Globulin 2.8 gm/dl (2.5-4.0); Glucose 116 mg/dl (70-99(Fasting)); Phosphorus 2.8 mg/dl (2.5-4.9); Potassium 4.7 mmol/L (3.5-5.1); Sodium 135 mmol/L (136-145); Total Protein 5.7 gm/dl (6.0-8.3)
[2023-08-23] MEDS: buprenorphine HCL 8 MG SUBL SL SCH ×3 (08:19→17:48)
[2023-08-23] MEDS: PANTOprazole 40 MG TAB PO SCH (08:19)
[2023-08-23] MEDS: AMOXICILLIN 875 MG TAB PO SCH ×2 (08:19→21:49)
[2023-08-23] MEDS: [UNRECOGNIZED DRUG - REMARK] SCH (10:14)
[2023-08-23] MEDS: PLASMA-LYTE A 1,000 ML IV SCH (10:22)
[2023-08-23 16:40] LABS: Hematocrit (blood only) 29.7 % (37.0-47.0); Hemoglobin 8.7 g/dl (12.0-16.0)
[2023-08-23] MEDS ORDERED: CENTRAL TPN IV SCH (22:00)
[2023-08-23] MEDS ORDERED: [UNRECOGNIZED DRUG - OTHER] IV SCH (22:00)
--- NOTE | 2023-08-23 23:21 | Hospitalist Progress Note ---
Date of Service August 23, 2023 Assessment & Plan (1) Severe anemia: Plan: Patient with anemia. Likely chronic blood loss with history of Crohns and on Fondiparinux injections. Tachycardic and hypotensive prior to arrival -doubt this is secondary to her anemia, fairly chronic, not far from baseline, no acute large volume blood loss -Transfusion 1u PRBCs when product is available -Hemoglobin appears stable, will monitor. If lower than 8 willl transfuse. (2) FTT (failure to thrive) in adult: Plan: Continue TPN and fat emulsion therapy Consult placed to Nutrition (3) Crohn's disease of colon with fistula: Plan: Considering patient's recent decrease in Prednisone as possibly contributing to her symptoms. Blood pressure is acceptable now. Electrolytes WNL -Increased corticosteroids. CRP is downtrending. (4) History of DVT (deep vein thrombosis): Plan: Patient with history of DVT. On home Fondaparinux. She has been administering this medication every 2-3 days - does note a pink tinge to her ostomy and fistula output after her injection. -Continue Fondaparinux q 48 hours Admission and Anticipated Discharge Date Admission Date: August 22, 2023 Subjective Patient reports her stool is now more brown. Review of Systems Review of Systems: All systems reviewed & are unremarkable except as noted in HPI & below Physical Exam Physical Exam: General: NAD Skin: dry HEENT: NC/AT Heart: +S1/S2, regular, no m/r/g Lungs: equal air entry bilaterally, no rales/rhonchi/wheezes Abd: +BS, soft, NT/ND, ileostomy in place with some output, fistula in place with some output, no bleeding, stomas appear healthy Ext: warm, 2+ pulses in UE/LE bilaterally, no clubbing/cyanosis or edema Neuro: nonfocal, patient AA&O x 4 Results & Data Results & Data Vital Signs (Past 12 Hours) Vital Signs Temp Pulse Pulse Resp BP Pulse Ox O2 Del Method 08/23/23 20:44 36.9 C 82 18 108/71 100 Room Air 08/23/23 15:59 36.8 C 89 18 99/63 L 98 Room Air 08/23/23 11:58 36.7 C 98 H 17 95/60 L 99 Room Air PG Care Time/CCT Total # of Minutes Spent Total Time Spent with Patient: Total time spent is greater than 50% in coordination of care (as documented) at patient's floor/unit and/or counseling patient: Coding Level of Care Code 74268 SUB INP/OBS CARE 2/35MIN Diagnoses Severe anemia D64.9 FTT (failure to thrive) in adult R62.7 Crohn's disease of colon with fistula K50.113 History of DVT (deep vein thrombosis) Z86.718
[2023-08-24] MEDS: STOP CLINOLIPID SCH (04:16)
[2023-08-24] MEDS: methylPREDNISolone 20 MG in SYRINGE 0 ML IV SCH ×2 (06:05→13:00)
[2023-08-24 07:14] LABS: Hematocrit (blood only) 28.3 % (37.0-47.0); Hemoglobin 8.2 g/dl (12.0-16.0); Mean Corpuscular Hemoglobin 24.2 pg (25.0-34.0); Mean Corpuscular Volume 83.5 fL (80.0-100.0); Mean Platelet Volume 8.8 fL (9.4-12.4); Platelet Count 324 K/uL (130-400); RDW Coefficient of Variation 21.2 % (11.5-14.5); RDW Standard Deviation 65.1 fL (36.4-46.3); Red Blood Count 3.39 M/uL (4.20-5.40); White Blood Count 10.33 K/ul (4.8-10.8)
[2023-08-24] MEDS: FONDAPARINUX 5 MG/0.4 ML SQ SCH ×2 (08:07→08:38)
[2023-08-24 08:22] LABS: Albumin Level 3.1 gm/dl (3.4-5.0); Bilirubin,Total 0.3 mg/dl (0.2-1.0); Magnesium 1.9 mg/dl (1.7-2.4); Potassium 4.3 mmol/L (3.5-5.1)
[2023-08-24] MEDS: [UNRECOGNIZED DRUG - REMARK] SCH (08:26)
[2023-08-24] MEDS: AMOXICILLIN 875 MG TAB PO SCH (08:37)
[2023-08-24] MEDS: buprenorphine HCL 8 MG SUBL SL SCH ×3 (08:37→16:33)
[2023-08-24 08:38] LABS: Albumin Globulin Ratio 1.1 (0.9-2); BUN Creatinine Ratio 64.3 (10-20); C Reactive Protein 1.71 mg/dl (0-0.5); Creatinine Clr Calc Pharmacy 123.2 ml/min; Est GFR (African American) 149.6 ml/min; Est GFR (Non-African American) 129.1 ml/min; Globulin 2.9 gm/dl (2.5-4.0)
[2023-08-24] MEDS: PANTOprazole 40 MG TAB PO SCH (08:38)
[2023-08-24] MEDS ORDERED: CLINOLIPID 20% IV FAT EMULSION 250 ML IV SCH (16:00)
--- NOTE | 2023-08-24 17:01 | Discharge Summary ---
Date of Service August 24, 2023 Admission HPI Per Admitting Provider Elsie Black is a 37yo female with complex medical history to include Crohns disease s/p colectomy with ileostomy and mucus fistula, failure to thrive, on TPN and Fat emulsion QOD presenting with generalized illness. She reports that over the last several days she has been having alternating hot and cold flashes as well as episodes of dizziness/lightheadedness and confusion. Yesterday AM she woke at 02:30 and thought that she had a fever. She felt ill throughout the day with episodes of dizziness. She checked her blood pressure and found it to be low at 75/52 with elevated HR of 129. She ultimately called EMS and came to the ER. She additionally reports pink-tinged output from her ileostomy and fistula after she administers her Fondaparinux injection. She has been on Prednisone 40mg po daily for over 1 month. Her surgeon recently mentioned that she would like the patient to begin weaning her steroids. She did take 30mg of Prednisone the last 2 days. In the ER she is afebrile, tachycardic Noted to be anemic with Hgb of 7.2. Blood transfusion x 1 unit ordered - patient with antibodies and blood is being cross matched at the [place] [place] Discharge Data Allergies Allergy/AdvReac Type Severity Reaction Status Date / Time aspirin Allergy Severe ANAPHYLAXIS Unverified 07/06/23 20:07 infliximab Allergy Severe ANAPHYLAXIS Verified 07/06/23 20:07 NSAIDS (Non-Steroidal Allergy Unknown THROAT Verified 07/06/23 20:07 Anti-Inflamma SWELLING Sulfa (Sulfonamide Allergy Unknown throat Unverified 07/06/23 20:07 Antibiotics) swelling bee venom protein (honey bee) Allergy Anaphylaxis Verified 07/06/23 20:07 ketorolac [From Toradol] Allergy Swelling Verified 07/06/23 20:07 of Lip/Tongue/Throat azathioprine AdvReac Unknown MIGRAINE Verified 07/06/23 20:07 Consultations 08/22/23 01:46 ED Decision to Admit Stat 08/22/23 12:05 Consult Gastroenterology Routine Ordered Studies 08/22/23 00:22 US venous doppler LE LT Stat Hospital Course (1) Severe anemia: Patient with anemia. Likely chronic blood loss with history of Crohns and on Fondiparinux injections. Tachycardic and hypotensive prior to arrival -doubt this is secondary to her anemia, fairly chronic, not far from baseline, no acute large volume blood loss -Transfusion 1u PRBCs when product is available -Hemoglobin appears stable, will monitor. If lower than 8 willl transfuse. (2) FTT (failure to thrive) in adult: Continue TPN and fat emulsion therapy Consult placed to Nutrition (3) Crohn's disease of colon with fistula: Considering patient's recent decrease in Prednisone as possibly contributing to her symptoms. Blood pressure is acceptable now. Electrolytes WNL -Increased corticosteroids. CRP is downtrending. (4) History of DVT (deep vein thrombosis): Patient with history of DVT. On home Fondaparinux. She has been administering this medication every 2-3 days - does note a pink tinge to her ostomy and fistula output after her injection. -Continue Fondaparinux q 48 hours Discharge Plan Discharge Items Patient Disposition: Home - Self-Care Reason For Visit: ANEMIA Discharge Diagnosis: Anemia Activity: Resume your previous activity Non-emergency contact: Primary Care Provider Call non-emergency contact if: you have any medication questions Follow-up/Referrals: Katie Okeefe CRNP [Primary Care Provider] - Diet: Regular Addtl Attending Provider Instructions: Recommend followup with PCP in 1-2 weeks. Recommend rechecking your hemoglobin within 1 week. Recommend cutting back your fondaparinux to q3 days in the short term. Will increase prednisone to 60 mg Daily for 7 days and then will titrate 5 mg e ach week. Pending Studies at Discharge: No Stand-Alone Forms: [employer], Smoking Cessation Medications and DC Order Prescriptions: New prednisone 10 mg tablet 10 mg PO DAILY Qty: 120 0RF Rx Instructions: Take 6 tablets once a day for 7 days, then 5 tablets and a half for 7 days, then 5 tabs for 7 days, then 4 tablets and a half Continued epinephrine 0.3 mg/0.3 mL Auto-Injector 0.3 mg IM Q4H PRN (Reason: Allergic Reaction) fondaparinux 5 mg/0.4 mL syringe See Rx Instructions .ROUTE .COMPLEX Rx Instructions: Inject 5mg every other day Tpn Solution See Rx Instructions .ROUTE .COMPLEX Rx Instructions: TPN solution every other day fat emulsion See Rx Instructions .ROUTE .COMPLEX Rx Instructions: opposite days of TPN buprenorphine HCl 8 mg tablet, sublingual 8 mg SUBLINGUAL TID pantoprazole 20 mg Tablet,Delayed Release (Dr/Ec) 20 mg PO DAILY amoxicillin 875 mg Tablet 875 mg PO BID Discontinued prednisone 20 mg Tablet 30 mg PO DAILY Discharge Orders: Discharge Order (Routine); Ordered 08/24/23 Ordered By: Fabian Galvez Admission Data Admit Date/Time: 08/22/23 03:04 Attending Provider: Fabian Galvez Admit Provider: Angy Zeng Primary Care Provider: Katie Okeefe Other Providers: Danelle Cooper ; Tess Najera ; Luis Miguel Hernández ; Citlalli Atkins ; Lulu Encinas ; Renetta Elias ; Claudia España ; Darrell Lopez ; Giuseppe Magallon ; Andrew Duenas ; Edmar Britton ; Yuval Pandey ; Kiesha Damon ; Katie Duran ; Nayely Birmingham ; Angelica Medina ; Curtis Hall ; Ander Blount ; Ceferino Sebastian ; Lorena Baig ; Juany Quintero Jr Other Interventions: Discharge Summary Assessment (RN) Last Done: 08/24/23 16:26 Coding Diagnoses Severe anemia D64.9 FTT (failure to thrive) in adult R62.7 Crohn's disease of colon with fistula K50.113 History of DVT (deep vein thrombosis) Z86.718
[2023-08-24] MEDS ORDERED: [UNRECOGNIZED DRUG - OTHER] IV SCH (22:00)
[2023-08-24] MEDS ORDERED: CENTRAL TPN IV SCH (22:00)
== END 2023-08-24 17:29 | disposition home health service (06) | DRG 812 ==
LOC: ED 21:23 → EDINP 08-22 03:04 → SUATTDRO 08-22 03:04 → 2N 08-22 05:55

== ENCOUNTER 2023-10-02 09:49 | Inpatient (IN) ==
[2023-10-02 11:45] LABS: Alanine Aminotransferase 23 U/L (7-52); Albumin Level 3.7 gm/dl (3.4-5.0); Alkaline Phosphatase 94 U/L (34-104); Anion Gap 11 (3-11); Aspartate Aminotransferase 9 U/L (13-39); BUN Creatinine Ratio 18.9 (10-20); Bilirubin,Total 1.4 mg/dl (0.2-1.0); Blood Urea Nitrogen 14 mg/dl (6-23); Calcium 9.3 mg/dl (8.6-10.3); Carbon Dioxide 28 mmol/L (21-32); Chloride 94 mmol/L (98-107); Est GFR (African American) 117.5 ml/min; Est GFR (Non-African American) 101.3 ml/min; Globulin 3.6 gm/dl (2.5-4.0); Glucose 91 mg/dl (70-99(Fasting)); Hematocrit (blood only) 26.9 % (37.0-47.0); Hemoglobin 7.2 g/dl (12.0-16.0); Magnesium 1.7 mg/dl (1.7-2.4); Mean Corpuscular Hemoglobin 18.7 pg (25.0-34.0); Mean Corpuscular Hgb Conc 26.8 g/dL (32.0-36.0); Mean Corpuscular Volume 69.9 fL (80.0-100.0); Mean Platelet Volume 9.2 fL (9.4-12.4); Nucleated RBC # (auto) 0.02 K/uL (0.00-0.12); Nucleated RBC % (auto) 0.1 %; Platelet Count 428 K/uL (130-400); Potassium 3.9 mmol/L (3.5-5.1); RDW Coefficient of Variation 22.3 % (11.5-14.5); RDW Standard Deviation 55.5 fL (36.4-46.3); Red Blood Count 3.85 M/uL (4.20-5.40); Sodium 133 mmol/L (136-145); Total Protein 7.3 gm/dl (6.0-8.3); White Blood Count 17.24 K/ul (4.8-10.8)
[2023-10-02] MEDS ORDERED: cefTRIAXone SODIUM 2,000 MG/50 ML BAG IV STA (11:46)
[2023-10-02 11:51] LABS: Troponin I High Sensitivity 5.3 pg/ml (0-14)
[2023-10-02 11:55] LABS: Anisocytosis Present; Basophils # (auto) 0.03 K/uL (0.00-0.20); Basophils % (auto) 0.2 %; Eosinophils # (auto) 0.02 K/uL (0.00-0.50); Eosinophils % (auto) 0.1 %; Immature Granulocytes # (auto) 0.24 K/uL (0.01-0.20); Immature Granulocytes % (auto) 1.4 %; Lymphocytes # (auto) 0.87 K/uL (1.20-3.40); Microcytosis Present; Monocytes # (auto) 0.79 K/uL (0.11-0.59); Monocytes % (auto) 4.6 %; Neutrophils # (auto) 15.29 K/uL (1.40-6.50); Neutrophils % (auto) 88.7 %; Polychromasia 1+; Stomatocytes 1+; Tear Drop Cells 1+
[2023-10-02 12:00] LABS: INR 1.1 (0.9-1.1); Partial Thromboplastin Ratio 0.9; Partial Thromboplastin Time 24.2 Seconds (21.0-31.0); Prothrombin Time 11.5 Seconds (9.0-12.0)
[2023-10-02] MEDS ORDERED: PIPERACILLIN/TAZOBACTAM 4.5 GM/100 ML BAG IV ONE (12:02)
[2023-10-02] MEDS ORDERED: SODIUM CHLORIDE 0.9% 1,000 ML IV ONE (12:02)
[2023-10-02] MEDS: SODIUM CHLORIDE 0.9% 1,000 ML IV SCH ×2 (12:06→13:52)
--- NOTE | 2023-10-02 12:06 | Emergency Department Note ---
Impression & Plan Sepsis, Acute cellulitis, Leukocytosis, Anemia ED Provider Note NAME: JANAY GIL AGE: 38 SEX: F : 1985 ARRIVES VIA: Ambulance INFORMANT: Patient ED PROVIDER(S): Pérez Vidal DO CHIEF COMPLAINT: back pain HPI: Patient is a 38-year-old female with a past medical history of Crohn's, history of DVT, failure to thrive who presents to the ER for back pain associated with dysuria, urgency, or frequency which has been present for the past 2 weeks. She notes it has been getting worse. She was prescribed Keflex and took this but no improvement. She also notes that over the past 2 days she has an abscess on her buttocks. She notes a history of Crohn's and ileostomy as well as a fistulous tract to the abdomen. Previous surgeries were performed [facility]. She notes that she has an abdominal wall fistula as well as a perirectal fistula. ADDITIONAL HISTORY OBTAINED: Per HPI Chronic Medical/Social Conditions Affecting Care: Per HPI PAST MEDICAL HISTORY:See Below PAST SURGICAL HISTORY:See Below FAMILY HISTORY:See Below SOCIAL HISTORY:See Below HOME MEDICATIONS:See Below ALLERGIES:See Below VITALS:See Below PHYSICAL EXAMINATION: GENERAL: Sitting up in bed, alert, ill-appearing, disheveled EYE EXAM: normal conjunctiva. OROPHARYNX: mucous membranes are moist NECK: supple, no nuchal rigidity, no adenopathy, non-tender LUNGS: Clear to auscultation. Normal chest wall mechanics HEART: no murmurs, S1 normal and S2 normal ABDOMEN: abdomen soft, non-tender, normo-active bowel sounds, no masses, no rebound or guarding. BACK: Back is symmetrical on inspection and there is no deformity, no midline tenderness, no CVA tenderness. RECTAL: Large amount of erythema and drainage from left gluteal muscles. Green purulent material. UPPER EXTREMITIES: upper extremities are grossly normal. LOWER EXTREMITIES: No pitting edema. NEURO EXAM: Normal sensorium, cranial nerves II-XII grossly intact, normal speech, no gross weakness of arms, no gross weakness of legs. MEDICAL DECISION MAKING: Patient is a 38-year-old female who presents ER for the above-stated complaint. IV was established blood work is obtained. Patient has extensive history of inflammatory bowel disease as well as fistulas with one going to the abdomen and one perirectally. She notes she does have pain in her back and perirectally she has some new pain. Labs show leukocytosis of 17,000. Anemia at 7 down from 8. INR unremarkable. BMP was unremarkable. Lactate was elevated at nearly 3. LFTs and troponin were negative. Patient was typed and crossed and ordered for [address] abdomen pelvis showed fistulous tracts in combination with a perirectal abscess which is currently draining. Discussed with radiology in regards to these findings. Discussed with general surgery who evaluated the patient at bedside. They were agreeable with keeping the patient here as she notes that she does not want to be transferred anywhere. I discussed with the hospitalist and they are agreeable to admit the patient. Patient was given Zosyn and vancomycin. Patient notes that this is fairly consistent with what she has been had before in the past. She was hypotensive with systolics in the 80s and dropped in the 70s for short period time. She is given 3 L of IV fluids and her heart rate trended down from the 140s to low 100s. Systolic pressures improved to the 100s. Patient was updated bedside admitted for further work-up of her sepsis likely secondary to cellulitis and fistulous. External Records Reviewed: Admission Dr. Mcdowell at the end of August 2023 for anemia Consults/Care Managements Discussions: Per [facility] Triage Nursing notes reviewed. Limited review of prior medical records performed Vital Signs: reviewed and remarkable for hypotension and tachycardic Differential diagnosis: Differential diagnosis includes etiologies such as sepsis, UTI, pneumonia, metabolic, electrolyte abnormalities, cardiac sources, intracerebral event, toxicologic, neurological, as well as others were entertained. ER treatment provided: See below Diagnostics interpreted by me include EKG and cardiac monitoring as listed below: -Cardiac Monitoring: An order was placed for continuous cardiac monitoring. The monitor shows a rate of 140 with sinus rhythm. -ECG: Sinus tachycardia rate of 143 Normal axis No PVCs QTc 518 -Laboratory studies:Interpreted by me as stated above in MDM and shown below. Imaging studies: Xrays: As interpreted by me:none CTs show: CT abdomen pelvis per my preliminary interpretation showed large amount of inflammation perirectally CT abdomen pelvis is described above in the MDM Procedures:none Critical Care: I have personally spent 31 minutes of critical care time in the direct management of this patient. This includes bedside care, interpretation of diagnostic studies, and testing, discussion with consultants, patient, and family members, and other required patient management activities. This 31 minutes is in excess of all separately billable procedures. Past Med/Surg History Medical History Protein calorie malnutrition Severe protein-calorie malnutrition Small bowel obstruction Endometriosis Crohn's disease of colon with fistula History of MRSA infection "per records" Rheumatoid arthritis Surgical History History of rectal surgery "hundreds of fistula surgeries" S/P exploratory laparotomy endometriosis H/O resection of large bowel multiple resections and clean outs H/O colectomy "total colectomy with ileoanal anastomosis 03/2006" Family History Other Blood clot in vein Social History Smoking Status: Never smoker Tobacco Type: Cigarettes Cigarettes Per Day: 1 cigarette per day; Second Hand Exposure: No; Do You Dip or Chew Tobacco: No; Hx Alcohol Use: No Hx Substance Use: No Preferred Language: Cameroonian Communication Ability: Effective Classified Copy Control Clerk Required: No Beliefs That Will Affect Care: None Current Living Situation: Family Current Living Situation Comment: Lives at home with daughter Feels Safe at Home: Yes Assistive Devices: Walker Allergies Allergies Allergy/AdvReac Type Severity Reaction Status Date / Time adalimumab [From Humira] Allergy Severe Anaphylaxis Unverified 10/02/23 13:02 aspirin Allergy Severe ANAPHYLAXIS Unverified 10/02/23 13:02 infliximab Allergy Severe ANAPHYLAXIS Verified 10/02/23 13:02 NSAIDS (Non-Steroidal Allergy Unknown THROAT Verified 10/02/23 13:02 Anti-Inflamma SWELLING Sulfa (Sulfonamide Allergy Unknown throat Unverified 10/02/23 13:02 Antibiotics) swelling bee venom protein (honey bee) Allergy Anaphylaxis Verified 10/02/23 13:02 ketorolac [From Toradol] Allergy Swelling Verified 10/02/23 13:02 of Lip/Tongue/Throat azathioprine AdvReac Unknown MIGRAINE Verified 10/02/23 13:02 Home Meds Home Medications Medication Instructions Recorded Confirmed epinephrine 0.3 mg/0.3 mL 0.3 mg IM Q4H PRN Allergic Reaction 08/26/22 10/02/23 injection, auto-injector fondaparinux 5 mg/0.4 mL 5 mg subcut .EVERY OTHER DAY 08/04/23 10/02/23 subcutaneous solution syringe pantoprazole 20 mg tablet,delayed 20 mg PO BID 08/22/23 10/02/23 release acetaminophen 325 mg tablet 650 mg PO QID PRN Pain 10/02/23 10/02/23 (Tylenol) buprenorphine HCl 8 mg sublingual 8 mg sublingual BID 10/02/23 10/02/23 tablet prednisone 10 mg tablet 0 mg PO DAILY 10/02/23 10/02/23 Results & Data (ED) Vital Signs Vital Signs - 24 hr 10/02/23 10:10 10/02/23 11:51 10/02/23 12:33 Temperature 36.7 C Temperature Source Temporal Artery Scan Pulse Rate 145 H 117 H Pulse Rate [Apical] 114 H Pulse Rate from SpO2 Sensor Respiratory Rate 17 18 Respiratory Effort / Characteristics Non-Labored Spontaneous Respiratory Depth Normal Blood Pressure 99/71 L Blood Pressure [Left Arm] 106/84 Blood Pressure Mean 80 Blood Pressure Mean [Left Arm] 91 Blood Pressure Position Sitting Pulse Oximetry 100 96 Oxygen Delivery Method Room Air Room Air Sepsis Recent Fever Within 48 Hours Yes Sepsis New/Unexplained Change in Mental Status No Sepsis Action Taken by Nursing No Action Required 10/02/23 12:33 10/02/23 12:47 10/02/23 13:00 Temperature Temperature Source Pulse Rate Pulse Rate [Apical] 114 H 112 H Pulse Rate from SpO2 Sensor Respiratory Rate 18 18 Respiratory Effort / Characteristics Respiratory Depth Blood Pressure 87/58 L Blood Pressure [Left Arm] 88/47 L 92/52 L Blood Pressure Mean 67 Blood Pressure Mean [Left Arm] 60 65 Blood Pressure Position Pulse Oximetry 98 99 Oxygen Delivery Method Room Air Room Air Sepsis Recent Fever Within 48 Hours Sepsis New/Unexplained Change in Mental Status Sepsis Action Taken by Nursing 10/02/23 13:00 10/02/23 13:30 10/02/23 13:30 Temperature Temperature Source Pulse Rate 106 H 104 H Pulse Rate [Apical] Pulse Rate from SpO2 Sensor 106 H 103 H Respiratory Rate 17 16 Respiratory Effort / Characteristics Respiratory Depth Blood Pressure 89/56 L Blood Pressure [Left Arm] Blood Pressure Mean 76 Blood Pressure Mean [Left Arm] Blood Pressure Position Pulse Oximetry 100 99 Oxygen Delivery Method Sepsis Recent Fever Within 48 Hours Sepsis New/Unexplained Change in Mental Status Sepsis Action Taken by Nursing 10/02/23 13:48 10/02/23 13:59 10/02/23 14:03 Temperature Temperature Source Pulse Rate Pulse Rate [Apical] 108 H 102 H Pulse Rate from SpO2 Sensor Respiratory Rate 18 Respiratory Effort / Characteristics Respiratory Depth Blood Pressure Blood Pressure [Left Arm] 87/60 L 101/71 Blood Pressure Mean Blood Pressure Mean [Left Arm] 69 81 Blood Pressure Position Pulse Oximetry 99 98 98 Oxygen Delivery Method Room Air Room Air Room Air Sepsis Recent Fever Within 48 Hours Sepsis New/Unexplained Change in Mental Status Sepsis Action Taken by Nursing 10/02/23 14:45 10/02/23 15:00 10/02/23 15:30 Temperature Temperature Source Pulse Rate 98 H Pulse Rate [Apical] Pulse Rate from SpO2 Sensor Respiratory Rate 16 Respiratory Effort / Characteristics Respiratory Depth Blood Pressure 95/72 L 99/66 L Blood Pressure [Left Arm] Blood Pressure Mean 77 79 Blood Pressure Mean [Left Arm] Blood Pressure Position Pulse Oximetry Oxygen Delivery Method Sepsis Recent Fever Within 48 Hours Sepsis New/Unexplained Change in Mental Status Sepsis Action Taken by Nursing 10/02/23 15:30 10/02/23 15:45 10/02/23 15:45 Temperature Temperature Source Pulse Rate 100 H 96 H Pulse Rate [Apical] Pulse Rate from SpO2 Sensor Respiratory Rate 13 20 Respiratory Effort / Characteristics Respiratory Depth Blood Pressure 98/66 L Blood Pressure [Left Arm] Blood Pressure Mean 75 Blood Pressure Mean [Left Arm] Blood Pressure Position Pulse Oximetry Oxygen Delivery Method Sepsis Recent Fever Within 48 Hours Sepsis New/Unexplained Change in Mental Status Sepsis Action Taken by Nursing Laboratory Data 10/02/23 11:14 10/02/23 11:14 Lab Results 10/02/23 10/02/23 Range/Units 11:14 13:59 WBC 17.24 H (4.8-10.8) K/ul RBC 3.85 L (4.20-5.40) M/uL Hgb 7.2 L (12.0-16.0) g/dl Hct 26.9 L (37.0-47.0) % MCV 69.9 L (80.0-100.0) fL MCH 18.7 L (25.0-34.0) pg MCHC 26.8 L (32.0-36.0) g/dL RDW Std Deviation 55.5 H (36.4-46.3) fL RDW Coeff of [place] 22.3 H (11.5-14.5) % Plt Count 428 H (130-400) K/uL MPV 9.2 L (9.4-12.4) fL Immature Gran % (Auto) 1.4 % Neut % (Auto) 88.7 % Lymph % (Auto) 5.0 % [place] % (Auto) 4.6 % Eos % (Auto) 0.1 % Baso % (Auto) 0.2 % Neut # (Auto) 15.29 H (1.40-6.50) K/uL Lymph # (Auto) 0.87 L (1.20-3.40) K/uL [place] # (Auto) 0.79 H (0.11-0.59) K/uL Eos # (Auto) 0.02 (0.00-0.50) K/uL Baso # (Auto) 0.03 (0.00-0.20) K/uL Immature Gran # (Auto) 0.24 H (0.01-0.20) K/uL Absolute Nucleated RBC 0.02 (0.00-0.12) K/uL Nucleated RBC % (auto) 0.1 % Polychromasia 1+ Anisocytosis Present Microcytosis Present Tear Drop Cells 1+ Stomatocytes 1+ PT 11.5 (9.0-12.0) Seconds INR 1.1 (0.9-1.1) APTT 24.2 (21.0-31.0) Seconds PTT Ratio 0.9 Sodium 133 L (136-145) mmol/L Potassium 3.9 (3.5-5.1) mmol/L Chloride 94 L (98-107) mmol/L Carbon Dioxide 28 (21-32) mmol/L Anion Gap 11 (3-11) BUN 14 (6-23) mg/dl Creatinine 0.74 (0.6-1.2) mg/dl Est Cr Clr Drug Dosing Not Reportable Est GFR ( Amer) 117.5 ml/min Est GFR (Non-Af Amer) 101.3 ml/min BUN/Creatinine Ratio 18.9 (10-20) Glucose 91 (70-99(Fasting)) mg/dl Lactate 2.7 H* 1.7 (0.4-2.0) mmol/L Calcium 9.3 (8.6-10.3) mg/dl Magnesium 1.7 (1.7-2.4) mg/dl Total Bilirubin 1.4 H (0.2-1.0) mg/dl AST 9 L (13-39) U/L ALT 23 (7-52) U/L Alkaline Phosphatase 94 (34-104) U/L Troponin I High Sens 5.3 (0-14) pg/ml Total Protein 7.3 (6.0-8.3) gm/dl Albumin 3.7 (3.4-5.0) gm/dl Globulin 3.6 (2.5-4.0) gm/dl Albumin/Globulin Ratio 1.0 (0.9-2) Procalcitonin 0.25 (0-0.5) ng/ml Crossmatch See Detail Administered Medications Vancomycin HCl 1,000 mg/ (Sodium Chloride) 520 mls @ 200 mls/hr IV NOW ONE Stop: 10/02/23 16:37 Last Admin: 10/02/23 14:53 Dose: 200 mls/hr Documented By: OL Discontinued Medications Sodium Chloride (Nss) 1,000 mls @ 999 mls/hr IV .Q1H1M XENA Stop: 10/02/23 14:00 Last Infusion: 10/02/23 14:56 Dose: Infused Documented By: Admin: 10/02/23 13:52 Dose: 999 mls/hr Documented By: Infusion: 10/02/23 13:40 Dose: Infused Documented By: Admin: 10/02/23 12:06 Dose: 999 mls/hr Documented By: OL Ceftriaxone Sodium (Rocephin) 2,000 mg in 50 mls @ 100 mls/hr IV NOW STA Stop: 10/02/23 12:15 Last Infusion: 10/02/23 12:36 Dose: Infused Documented By: Admin: 10/02/23 12:06 Dose: 100 mls/hr Documented By: OL Sodium Chloride (Nss) 1,000 mls @ 999 mls/hr IV .Q1H1M ONE Stop: 10/02/23 13:02 Last Infusion: 10/02/23 13:33 Dose: Infused Documented By: Admin: 10/02/23 12:29 Dose: 999 mls/hr Documented By: OL Piperacillin Sod/Tazobactam Sod (Zosyn) 4.5 gm in 100 mls @ 200 mls/hr IV NOW ONE Stop: 10/02/23 12:31 Last Infusion: 10/02/23 13:33 Dose: Infused Documented By: Admin: 10/02/23 12:29 Dose: 200 mls/hr Documented By: JOHANNA Ioversol (Optiray 320 500ml) 84 ml IV ONCE ONE Stop: 10/02/23 12:23 Last Admin: 10/02/23 12:23 Dose: 84 ml Documented By: LEXIE Morphine Sulfate (Morphine Sulfate 4 Mg/Ml 1 Ml Carp\\Vial) 4 mg IV NOW STA Stop: 10/02/23 12:49 Last Admin: 10/02/23 12:57 Dose: 4 mg Documented By: LIA Imaging Data Radiologist's Impression: Abdomen/Pelvis CT 10/02/23 11:46 CT OF THE ABDOMEN AND PELVIS WITH CONTRAST CLINICAL HISTORY: Sepsis. Back pain. Rectal abscess. COMPARISON STUDY: CT of the abdomen and pelvis July 06, 2023. TECHNIQUE: Following IV administration of 84 mL of Optiray, axial images of the abdomen and pelvis were obtained from the lung bases to the proximal femurs. Images were reviewed in the axial, sagittal, and coronal planes. IV contrast was administered without complication. Automated exposure control was utilized for the study. A dose lowering technique was utilized adhering to the principles of ALARA. CT DOSE: 437.47 mGy.cm FINDINGS: Lung bases are unremarkable. No pneumatosis, free air or portal venous gas is present. There are no hepatic lesions. There is no biliary or pancreatic ductal dilatation. Adrenal glands, kidneys and pancreas are unremarkable. There is no peripancreatic or pericholecystic infiltration. There are postoperative findings consistent with subtotal colectomy and right lower quadrant double barrel ileostomy. There is no evidence for a bowel obstruction. There is suspected mild wall thickening of several small bowel loops which are clustered within the lower abdomen and upper pelvis. Trace associated ascites is present. 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 The findings suggest a complex fistula with involvement of the anterior abdominal wall. Several small associated gas and fluid containing collections within the deep subcutaneous tissues of the anterior abdominal wall measure up to 1.5 x 0.6 cm. These are likely related to the fistula. In addition, there is a left perirectal fistula which extends through the levator ani. There is an associated 3.3 x 1.1 cm rim-enhancing fluid collection within the medial left gluteal fold with adjacent stranding. This contains trace gas. This represents an abscess. Prominent left inguinal lymph node is likely reactive. Cystic left adnexal lesion has slightly decreased in size. This measures 7 x 4.4 cm. An enhancing nodular focus within this lesion may reflect the left ovary. Major vasculature is patent. Bladder wall thickening has slightly decreased since prior exam. IMPRESSION: 1. Status post subtotal colectomy with right lower quadrant ileostomy. No evidence for a bowel obstruction. Mild wall thickening of several clustered small bowel loops with trace associated ascites. This may reflect active inflammatory bowel disease. 2. 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 Several small associated gas and fluid containing collections within the subcutaneous tissues of the anterior abdominal wall measure up to 1.5 x 0.6 cm. Sterility cannot be assessed by CT. 3. Left perirectal fistula with associated 3.3 x 1.1 cm rim enhancing fluid collection within the medial left gluteal fold consistent with an abscess. Adjacent stranding represents cellulitis. 4. Decrease in size of the 7 x 4.4 cm cystic left adnexal lesion. This remains indeterminate although is probably benign and could reflect a paraovarian cyst or a peritoneal inclusion cyst. 5. Decrease in bladder wall thickening. 6. Prominent left inguinal lymph node, likely reactive. ACT 112: Negative or not required by law. Electronically signed by: Car Gong M.D. 10/02/2023 1:17 PM Discharge Plan Visit Data Chief Complaint: Back Injury/Pain Stated Complaint: LOWER BACK PAIN ED Provider: Pérez Vidal Discharge Problem: Sepsis, Acute cellulitis, Leukocytosis, Anemia Forms Stand Alone Forms: My [facility] Prescriptions Prescriptions: No Action epinephrine 0.3 mg/0.3 mL Auto-Injector 0.3 mg IM Q4H PRN (Reason: Allergic Reaction) fondaparinux 5 mg/0.4 mL syringe 5 mg subcut .EVERY OTHER DAY acetaminophen [Tylenol] 325 mg Tablet 650 mg PO QID PRN (Reason: Pain) buprenorphine HCl 8 mg tablet, sublingual 8 mg SUBLINGUAL BID prednisone 10 mg tablet 0 mg PO DAILY pantoprazole 20 mg Tablet,Delayed Release (Dr/Ec) 20 mg PO BID Referrals Referrals: Katie Okeefe, SARAY [Primary Care Provider] - Discharge Problem: Sepsis Qualifiers: Sepsis type: sepsis due to unspecified organism Sepsis acute organ dysfunction status: unspecified Qualified Code(s): A41.9 - Sepsis, unspecified organism Leukocytosis Qualifiers: Leukocytosis type: unspecified Qualified Code(s): D72.829 - Elevated white blood cell count, unspecified Anemia Qualifiers: Anemia type: unspecified type Qualified Code(s): D64.9 - Anemia, unspecified
[2023-10-02] MEDS ORDERED: OPTIRAY 320 500ml IV ONE (12:22)
[2023-10-02] MEDS ORDERED: MoRPHine SULFATE 4 MG/ML 1 ML CARP\\VIAL IV STA (12:48)
--- NOTE | 2023-10-02 13:18 | CT Scan Report ---
CT OF THE ABDOMEN AND PELVIS WITH CONTRAST CLINICAL HISTORY: Sepsis. Back pain. Rectal abscess. COMPARISON STUDY: CT of the abdomen and pelvis July 06, 2023. TECHNIQUE: Following IV administration of 84 mL of Optiray, axial images of the abdomen and pelvis we re obtained from the lung bases to the proximal femurs. Images were reviewed in the axial, sagittal, and coronal planes. IV contrast was administered without complication. Automated exposure control wa s utilized for the study. A dose lowering technique was utilized adhering to the principles of ALARA . CT DOSE: 437.47 mGy.cm FINDINGS: Lung bases are unremarkable. No pneumatosis, free air or portal venous gas is present. Ther e are no hepatic lesions. There is no biliary or pancreatic ductal dilatation. Adrenal glands, kidney s and pancreas are unremarkable. There is no peripancreatic or pericholecystic infiltration. There ar e postoperative findings consistent with subtotal colectomy and right lower quadrant double barrel il eostomy. There is no evidence for a bowel obstruction. There is suspected mild wall thickening of sev eral small bowel loops which are clustered within the lower abdomen and upper pelvis. Trace associate d ascites is present. 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 The findings suggest a complex fistula with involvement of the anterior abdominal wall. Several small associated gas and fluid containing collections within the de ep subcutaneous tissues of the anterior abdominal wall measure up to 1.5 x 0.6 cm. These are likely r elated to the fistula. In addition, there is a left perirectal fistula which extends through the leva tor ani. There is an associated 3.3 x 1.1 cm rim-enhancing fluid collection within the medial left gl uteal fold with adjacent stranding. This contains trace gas. This represents an abscess. Prominent le ft inguinal lymph node is likely reactive. Cystic left adnexal lesion has slightly decreased in size. This measures 7 x 4.4 cm. An enhancing nodular focus within this lesion may reflect the left ovary. Major vasculature is patent. Bladder wall thickening has slightly decreased since prior exam. IMPRESSION: 1. Status post subtotal colectomy with right lower quadrant ileostomy. No evidence for a bowel obstru ction. Mild wall thickening of several clustered small bowel loops with trace associated ascites. Thi s may reflect active inflammatory bowel disease. 2. 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 Several small associated gas and fluid containing collections withi n the subcutaneous tissues of the anterior abdominal wall measure up to 1.5 x 0.6 cm. Sterility canno t be assessed by CT. 3. Left perirectal fistula with associated 3.3 x 1.1 cm rim enhancing fluid collection within the med ial left gluteal fold consistent with an abscess. Adjacent stranding represents cellulitis. 4. Decrease in size of the 7 x 4.4 cm cystic left adnexal lesion. This remains indeterminate although is probably benign and could reflect a paraovarian cyst or a peritoneal inclusion cyst. 5. Decrease in bladder wall thickening. 6. Prominent left inguinal lymph node, likely reactive. ACT 112: Negative or not required by law. Electronically signed by: Car Gong M.D. 10/02/2023 1:17 PM
[2023-10-02] MEDS ORDERED: SODIUM CHLORIDE 0.9% 250 ML IV PRN (13:42)
[2023-10-02] MEDS ORDERED: VANCOMYCIN CONSULT ACTIVE PRN (14:02)
[2023-10-02] MEDS ORDERED: VANCOMYCIN HCL 1,000 MG in SODIUM CHLORIDE 0.9% 500 ML IV ONE (14:02)
--- NOTE | 2023-10-02 15:35 | Surgery Consultation ---
Date of Consultation October 02, 2023 Assessment & Plan (1) Crohn's disease of colon with fistula: Her CT images and results were personally viewed and interpreted by myself She has no obstruction and no signs of abdominal wall abscess Her EC and perianal fistulas are being managed by [facility] GI and colorectal There are no indications for any surgical intervention I would suggest to touch base with her colorectal surgeon and GI team in [place] to see if they have any suggestions Would also consult GI here to help with her IBD management while admitted I think IV ABX are reasonable to try to help with her chronic infections Will follow (2) Severe anemia: (3) Enterocutaneous fistula: History of Present Illness Reason for Consultation: Sepsis History of Present Illness This is a 38-year-old female with a complex medical history involving Crohn's disease status post subtotal colectomy with ileostomy in 2014 at the [facility] in [place]. She was doing well up until about February of this year when she developed increased bouts of abdominal pain and then later developed EC fistulas a few months ago. She was on TPN but is now off of that and tolerating PO intake and gaining weight. She does follow with both colorectal surgery and GI at the [facility]. She came to the ER today with overall malaise and complaints of back pain. She denies any abdominal pain, nausea or vomiting. She states her known perianal fistula is at baseline and chronically draining. She does not complain of any decreased ostomy output. Allergies Allergy/AdvReac Type Severity Reaction Status Date / Time adalimumab [From Humira] Allergy Severe Anaphylaxis Unverified 10/02/23 13:02 aspirin Allergy Severe ANAPHYLAXIS Unverified 10/02/23 13:02 infliximab Allergy Severe ANAPHYLAXIS Verified 10/02/23 13:02 NSAIDS (Non-Steroidal Allergy Unknown THROAT Verified 10/02/23 13:02 Anti-Inflamma SWELLING Sulfa (Sulfonamide Allergy Unknown throat Unverified 10/02/23 13:02 Antibiotics) swelling bee venom protein (honey bee) Allergy Anaphylaxis Verified 10/02/23 13:02 ketorolac [From Toradol] Allergy Swelling Verified 10/02/23 13:02 of Lip/Tongue/Throat azathioprine AdvReac Unknown MIGRAINE Verified 10/02/23 13:02 Home Medications Medication Instructions Recorded Confirmed Type epinephrine 0.3 mg/0.3 mL 0.3 mg IM Q4H PRN Allergic Reaction 08/26/22 10/02/23 History injection, auto-injector fondaparinux 5 mg/0.4 mL 5 mg subcut .EVERY OTHER DAY 08/04/23 10/02/23 History subcutaneous solution syringe pantoprazole 20 mg tablet,delayed 20 mg PO BID 08/22/23 10/02/23 History release acetaminophen 325 mg tablet 650 mg PO QID PRN Pain 10/02/23 10/02/23 History (Tylenol) buprenorphine HCl 8 mg sublingual 8 mg sublingual BID 10/02/23 10/02/23 History tablet prednisone 10 mg tablet 0 mg PO DAILY 10/02/23 10/02/23 History Patient History Medical History Protein calorie malnutrition Severe protein-calorie malnutrition Small bowel obstruction Endometriosis Crohn's disease of colon with fistula History of MRSA infection "per records" Rheumatoid arthritis Surgical History History of rectal surgery "hundreds of fistula surgeries" S/P exploratory laparotomy endometriosis H/O resection of large bowel multiple resections and clean outs H/O colectomy "total colectomy with ileoanal anastomosis 03/2006" Family History Other Blood clot in vein Social History Smoking Status: Never smoker Tobacco Type: Cigarettes Cigarettes Per Day: 1 cigarette per day; Second Hand Exposure: No; Do You Dip or Chew Tobacco: No; Hx Alcohol Use: No Hx Substance Use: No Preferred Language: Ukrainian Communication Ability: Effective Risk Adjustment Specialist Required: No Beliefs That Will Affect Care: None Current Living Situation: Family Current Living Situation Comment: Lives at home with daughter Feels Safe at Home: Yes Assistive Devices: Walker Review of Systems Constitutional: no fever and no chills Eyes: no blind spots, no discharge and no worsening vision Ear, Nose, Mouth, Throat: no ear pain, no tinnitus and no sore throat Respiratory: no cough and no dyspnea Cardiovascular: no chest pain and no dyspnea on exertion Gastrointestinal: no abdominal pain, no nausea, no vomiting and no constipation Genitourinary: no dysuria, no urinary urgency and no nocturia Musculoskeletal: + back pain; no neck pain Integumentary: no acne, no skin ulcer and no erythema Neurologic: no headache(s) and no abnormal speech Psychiatric: no behavioral changes and no depression Hematologic / Lymphatic: no easy bleeding and no easy bruising Physical Exam Constitutional: comfortable; no acute distress Eyes: PERRL, conjunctivae normal, anicteric sclerae ENMT: external ear and nose normal, oropharynx normal Neck: trachea midline, no thyromegaly Respiratory: normal respiratory effort, lungs clear to auscultation Cardiovascular: RRR, no murmur, no edema Gastrointestinal (Abdomen): Ileostomy pink with output EC fistula in center of abdomen with output Abdomen is soft and nontender, no erythema or signs of abscess Left buttock with chronically indurated and draining fistula, tender to touch Musculoskeletal: no cyanosis or clubbing, extremities motor strength 5/5 Skin: no rashes, warm and dry Neurologic: PERRL, EOMI, accommodation nl, no face palsy, no dysarthria Psychiatric: A+Ox3, euthymic affect Results & Data Vital Signs (Past 12 Hours) Vital Signs Temp Pulse Pulse Resp BP BP Pulse Ox 10/02/23 14:03 102 H 101/71 98 10/02/23 13:59 98 10/02/23 13:48 108 H 18 87/60 L 99 10/02/23 13:30 104 H 16 99 10/02/23 13:30 89/56 L 10/02/23 13:00 106 H 17 100 10/02/23 13:00 87/58 L 10/02/23 12:47 112 H 18 92/52 L 99 10/02/23 12:33 114 H 18 88/47 L 98 10/02/23 12:33 117 H 10/02/23 11:51 114 H 18 106/84 96 10/02/23 10:10 36.7 C 145 H 17 99/71 L 100 O2 Del Method 10/02/23 14:03 Room Air 10/02/23 13:59 Room Air 10/02/23 13:48 Room Air 10/02/23 13:30 10/02/23 13:30 10/02/23 13:00 10/02/23 13:00 10/02/23 12:47 Room Air 10/02/23 12:33 Room Air 10/02/23 12:33 10/02/23 11:51 Room Air 10/02/23 10:10 Room Air PG Care Time/CCT Total # of Minutes Spent Total Time Spent with Patient: Total time spent is greater than 50% in coordination of care (as documented) at patient's floor/unit and/or counseling patient: Coding Level of Care Code 60366 OFFICE CONSULT LVL M Diagnoses Crohn's disease of colon with fistula K50.113 Severe anemia D64.9 Enterocutaneous fistula K63.2
--- NOTE | 2023-10-02 15:42 | Electrocardiogram Report ---
Test Reason : Blood Pressure : / mmHG Vent. Rate : 143 BPM Atrial Rate : 143 BPM P-R Int : 128 ms QRS Dur : 058 ms QT Int : 336 ms P-R-T Axes : 069 065 060 degrees QTc Int : 518 ms Sinus tachycardia Otherwise normal ECG When compared with ECG of 20-SEP-2023 12:55, Nonspecific T wave abnormality, worse in Inferior leads Nonspecific T wave abnormality no longer evident in Anterior leads Confirmed by Emiliano Garcia ([id number]) on 10/02/2023 3:42:07 PM Referred By: Confirmed By:Stiven Garcia
--- NOTE | 2023-10-02 16:15 | History & Physical Report ---
Date of Service October 02, 2023 Assessment & Plan (1) Sepsis: Plan: -Admit to med/tele -Patient currently with soft BP of 87/58 but otherwise stable and mentating well -Patient presented with progressive generalized weakness, low back pain, and increased swell/pain at her chronic left gluteal enterocutaneous fistula -Noted to have a leukocytosis of 17, tachycardic in the 120's-140's on arrival, and CT evidence of abscess formation at the left gluteal enterocutaneous fistual -Initial concern for possible abdominal wall abscess on CT, General Surgery evaluated and does not believe this to be the case -Will obtain chest xray and follow UA obtained on admission to rule out other possible sources -S/P 2.5L NSS, Ceftriaxone, Zosyn, and Vancomycin in the ED -Will give 100 mg IV hydrocortisone stat for stress dose steroids as she is on chronic prednisone therapy but has not had a dose in the past 48 hours -Will give 1L LR on admission as well -Will continue with Vancomycin and Zosyn for now, follow blood and urine cultures -Will need further discussions with General Surgery regarding the need for I&D for the abscess as the patient's Colorectal Surgeon believes it can be performed at our facility -Will continue home Fondaparinux for now for DVT PPX (Takes every other day; next dose is tomorrow) -Clear liquid diet for now then NPO at midnight in case of procedure tomorrow -AM CBC, CMP, Mag, PT/INR -Please ensure patient is reminded of her 4:30 pm telemedicine appointment with her Colorectal Surgeon tomorrow, 10/03 >Patient uses her phone and has a phone crime lab technician with her (2) Abscess, gluteal, left: Plan: -Continue broad spectrum abx for now -Follow blood cultures -Will continue to discuss possibility of surgical drainage at our facility -Low air loss mattress (3) Anemia: Plan: -Hgb of 7.2 today, down from 7.9 as of 09/20 -Has a long hx of of malnutrition and JARET requiring blood transfusions -No signs of active bleeding at this time -Has been consented by the ED who ordered 1 unit of PRBC's -Her transfusion will need to come from [place] -Monitor post transfusion CBC (4) Lactate blood increased: Plan: -Initial lactate elevated at 2.7, cleared to 1.7 on repeat after initial fluid resuscitation -Likely due to dehydration and acute infection (5) Acute cellulitis: Plan: -See left gluteal abscess (6) History of DVT (deep vein thrombosis): Plan: -Will continue every other day Fondaparinux for now with next dose tomorrow (10/03) (7) Crohn's disease of colon with fistula: Plan: -Patient appears to be having a Chron's flare on CT of the abd/pelvis today -Has not had prednisone in the past 48 hours -GI Consult placed -Will discuss if continued stress dosed steroids will be sufficient to cover chron's flare for now -Will start daily 40 mg IV Protonix daily -Clear liquid diet for now then NPO at midnight (8) Rheumatoid arthritis: Plan: -PO prednisone on hold while on IV stress dosed steroids (9) Chronic pain: Plan: -Continue SL buprenorphine Plan The patient was discussed with Dr. Carrillo at the time of the admission History of Present Illness Chief Complaint: Low back pain with radiation to the legs Primary Care Provider: SARAY Pascal Elsie Black is a 38 yo female with complex medical history to include Crohns disease s/p colectomy with ileostomy and mucus fistula, chronic perianal fistula, chronic anemia, failure to thrive (Previously on TPN and Fat emulsion therapy), hx of DVT (On Fundaparinux) who presented to the [facility] ED on 10/02 with complaints of generalized weakness and low back pain with radiation down the BL leg. On arrival she was noted to have soft BP's with systolics in the 90's and HR in the 110's but otherwise stable. Labs were significant for a leukocytosis of 17 with neutrophil predominance of 15, Hgb of 7.2 (down from 7.9 as of 09/20), MCV of 69, MCHC of 26, sodium of 133, initial lactate of 2.7 which decreased to 1.7 on repeat, and total bili of 1.4. CT of the abd/pelvis w/IV con was read as "1. Status post subtotal colectomy with right lower quadrant ileostomy. No evidence for a bowel obstruction. Mild wall thickening of several clustered small bowel loops with trace associated ascites. This may reflect active inflammatory bowel disease. 2. 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 Several small associated gas and fluid containing collections within the subcutaneous tissues of the anterior abdominal wall measure up to 1.5 x 0.6 cm. Sterility cannot be assessed by CT. 3. Left perirectal fistula with associated 3.3 x 1.1 cm rim enhancing fluid collection within the medial left gluteal fold consistent with an abscess. Adjacent stranding represents cellulitis. 4. Decrease in size of the 7 x 4.4 cm cystic left adnexal lesion. This remains indeterminate although is probably benign and could reflect a paraovarian cyst or a peritoneal inclusion cyst. 5. Decrease in bladder wall thickening. 6. Prominent left inguinal lymph node, likely reactive.". General surgery was consulted and evaluated the patient. At this time they do not believe that she has an abdominal wall abscess and believes she could be treated conservatively for her enterocutaneous fistula with IV antibiotics. The ED staff spoke with her Colorectal Surgeon at the [facility] (Dr. Allison Yee). She explained that the patient's enterocutaneous abscess could be safely drained by our surgical team here. She agrees with IV antibiotics and actually has a telemedicine appointment with the patient tomorrow at 4:30pm. Prior to admission the patient was given 2.5 L NSS, a dose of ceftriaxone, Zosyn, and Vancomycin. At the time of the exam the patient was sitting in bed in no acute distress. She states that she has had the left gluteal enterocutaneous fistual for approximately 10+ years. Typically it remains open and drains. Approximately 3-4 days she started to notice increased swelling and discomfort at the fistula site with significantly less drainage. She states that she was treated for a UTI/"Kidney Infection" from an acute care clinic approximately 2 weeks ago. She confirms that she completed her course of abx. Over the past week she developed symptoms such as generalized weakness, chills, body aches, and a subjective fever. She initially thought she had a respiratory virus. Las night she developed acute onset of low back pain which she thought could be related to her recent UTI. She was unable to tolerate PO intake today prompting her to come to the ED. She states that she has not had a dose of her chronic prednisone over the past 48 hours and did not have her am dose of Buprenorphine today. She fells slightly improved compared to her arrival to the ED. She is adamant that she would not want to be transferred to the [facility] at this time and would not want to restart TPN if recommended. Please refer to Dr. Carrillo's attestation for any changes to the treatment plan Allergies Allergy/AdvReac Type Severity Reaction Status Date / Time adalimumab [From Humira] Allergy Severe Anaphylaxis Unverified 10/02/23 13:02 aspirin Allergy Severe ANAPHYLAXIS Unverified 10/02/23 13:02 infliximab Allergy Severe ANAPHYLAXIS Verified 10/02/23 13:02 NSAIDS (Non-Steroidal Allergy Unknown THROAT Verified 10/02/23 13:02 Anti-Inflamma SWELLING Sulfa (Sulfonamide Allergy Unknown throat Unverified 10/02/23 13:02 Antibiotics) swelling bee venom protein (honey bee) Allergy Anaphylaxis Verified 10/02/23 13:02 ketorolac [From Toradol] Allergy Swelling Verified 10/02/23 13:02 of Lip/Tongue/Throat azathioprine AdvReac Unknown MIGRAINE Verified 10/02/23 13:02 Home Medications Medication Instructions Recorded Confirmed Type epinephrine 0.3 mg/0.3 mL 0.3 mg IM Q4H PRN Allergic Reaction 08/26/22 10/02/23 History injection, auto-injector fondaparinux 5 mg/0.4 mL 5 mg subcut .EVERY OTHER DAY 08/04/23 10/02/23 History subcutaneous solution syringe pantoprazole 20 mg tablet,delayed 20 mg PO BID 08/22/23 10/02/23 History release acetaminophen 325 mg tablet 650 mg PO QID PRN Pain 10/02/23 10/02/23 History (Tylenol) buprenorphine HCl 8 mg sublingual 8 mg sublingual BID 10/02/23 10/02/23 History tablet prednisone 10 mg tablet 0 mg PO DAILY 10/02/23 10/02/23 History Past Med/Surg History Medical History Protein calorie malnutrition Severe protein-calorie malnutrition Small bowel obstruction Endometriosis Crohn's disease of colon with fistula History of MRSA infection "per records" Rheumatoid arthritis Surgical History History of rectal surgery "hundreds of fistula surgeries" S/P exploratory laparotomy endometriosis H/O resection of large bowel multiple resections and clean outs H/O colectomy "total colectomy with ileoanal anastomosis 03/2006" Family History Other Blood clot in vein Social History Smoking Status: Current every day smoker Tobacco Type: E-cigarettes / Vaping Cigarettes Per Day: 1 cigarette per day; Second Hand Exposure: No; Do You Dip or Chew Tobacco: No; Hx Alcohol Use: No Hx Substance Use: No Preferred Language: Spanish Communication Ability: Effective Radiotelephone Operator Required: No Beliefs That Will Affect Care: None Current Living Situation: Family Current Living Situation Comment: Lives at home with daughter Feels Safe at Home: Yes Safety Concerns: Feels Safe At This Time Assistive Devices: None Physical Exam 2 Physical Exam: Physical Exam: General: In no acute distress, stated age, chronically ill appearing but non- toxic HEENT: Normocephalic, atraumatic, no scleral icterus, pupils around round, symmetrical, and reactive to light, moist mucus membranes, trachea midline, no thyromegaly Chest/Pulm: No respiratory distress, symmetrical chest expansion, clear breath sounds throughout Cardiac: RRR, no murmurs noted Abdomen: Ileostomy located in the RLQ which appears intact and baseline drainage (per the patient), hypoactive bowel sounds, soft and non-tender througout Musculoskeletal: Symmetrical and without signs of acute trauma, upper and lower extremities with full ROM, no atrophy, spasticity, or flaccidity Extremities: Radial, dorsalis pedis, and posterior tibial pulses are intact and symmetrical, no edema noted in the BL LE's Skin: See picture below of left gluteal abscess Neuro: Alert and oriented to person, place, month, year, and president, no focal defects,no tremors noted Psych: No acute distress, calm and cooperative during the exam Results & Data Results & Data Vital Signs (Past 12 Hours) Vital Signs Temp Pulse Pulse Resp BP BP Pulse Ox 10/02/23 15:45 96 H 20 10/02/23 15:45 98/66 L 10/02/23 15:30 100 H 13 10/02/23 15:30 99/66 L 10/02/23 15:00 98 H 16 10/02/23 14:45 95/72 L 10/02/23 14:03 102 H 101/71 98 10/02/23 13:59 98 10/02/23 13:48 108 H 18 87/60 L 99 10/02/23 13:30 104 H 16 99 10/02/23 13:30 89/56 L 10/02/23 13:00 106 H 17 100 10/02/23 13:00 87/58 L 10/02/23 12:47 112 H 18 92/52 L 99 10/02/23 12:33 114 H 18 88/47 L 98 10/02/23 12:33 117 H 10/02/23 11:51 114 H 18 106/84 96 10/02/23 10:10 36.7 C 145 H 17 99/71 L 100 O2 Del Method 10/02/23 15:45 10/02/23 15:45 10/02/23 15:30 10/02/23 15:30 10/02/23 15:00 10/02/23 14:45 10/02/23 14:03 Room Air 10/02/23 13:59 Room Air 10/02/23 13:48 Room Air 10/02/23 13:30 10/02/23 13:30 10/02/23 13:00 10/02/23 13:00 10/02/23 12:47 Room Air 10/02/23 12:33 Room Air 10/02/23 12:33 10/02/23 11:51 Room Air 10/02/23 10:10 Room Air Laboratory Results Abnormal lab results 10/02/23 10/02/23 Range/Units 11:14 13:59 WBC 17.24 H (4.8-10.8) K/ul RBC 3.85 L (4.20-5.40) M/uL Hgb 7.2 L (12.0-16.0) g/dl Hct 26.9 L (37.0-47.0) % MCV 69.9 L (80.0-100.0) fL MCH 18.7 L (25.0-34.0) pg MCHC 26.8 L (32.0-36.0) g/dL RDW Std Deviation 55.5 H (36.4-46.3) fL RDW Coeff of [place] 22.3 H (11.5-14.5) % Plt Count 428 H (130-400) K/uL MPV 9.2 L (9.4-12.4) fL Neut # (Auto) 15.29 H (1.40-6.50) K/uL Lymph # (Auto) 0.87 L (1.20-3.40) K/uL [place] # (Auto) 0.79 H (0.11-0.59) K/uL Immature Gran # (Auto) 0.24 H (0.01-0.20) K/uL Sodium 133 L (136-145) mmol/L Chloride 94 L (98-107) mmol/L Lactate 2.7 H* (0.4-2.0) mmol/L Total Bilirubin 1.4 H (0.2-1.0) mg/dl AST 9 L (13-39) U/L Crossmatch See Detail Diagnostic Findings Abdomen/Pelvis CT 10/02/23 11:46 CT OF THE ABDOMEN AND PELVIS WITH CONTRAST CLINICAL HISTORY: Sepsis. Back pain. Rectal abscess. COMPARISON STUDY: CT of the abdomen and pelvis July 06, 2023. TECHNIQUE: Following IV administration of 84 mL of Optiray, axial images of the abdomen and pelvis were obtained from the lung bases to the proximal femurs. Images were reviewed in the axial, sagittal, and coronal planes. IV contrast was administered without complication. Automated exposure control was utilized for the study. A dose lowering technique was utilized adhering to the principles of ALARA. CT DOSE: 437.47 mGy.cm FINDINGS: Lung bases are unremarkable. No pneumatosis, free air or portal venous gas is present. There are no hepatic lesions. There is no biliary or pancreatic ductal dilatation. Adrenal glands, kidneys and pancreas are unremarkable. There is no peripancreatic or pericholecystic infiltration. There are postoperative findings consistent with subtotal colectomy and right lower quadrant double barrel ileostomy. There is no evidence for a bowel obstruction. There is suspected mild wall thickening of several small bowel loops which are clustered within the lower abdomen and upper pelvis. Trace associated ascites is present. 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 The findings suggest a complex fistula with involvement of the anterior abdominal wall. Several small associated gas and fluid containing collections within the deep subcutaneous tissues of the anterior abdominal wall measure up to 1.5 x 0.6 cm. These are likely related to the fistula. In addition, there is a left perirectal fistula which extends through the levator ani. There is an associated 3.3 x 1.1 cm rim-enhancing fluid collection within the medial left gluteal fold with adjacent stranding. This contains trace gas. This represents an abscess. Prominent left inguinal lymph node is likely reactive. Cystic left adnexal lesion has slightly decreased in size. This measures 7 x 4.4 cm. An enhancing nodular focus within this lesion may reflect the left ovary. Major vasculature is patent. Bladder wall thickening has slightly decreased since prior exam. IMPRESSION: 1. Status post subtotal colectomy with right lower quadrant ileostomy. No evidence for a bowel obstruction. Mild wall thickening of several clustered small bowel loops with trace associated ascites. This may reflect active inflammatory bowel disease. 2. 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 Several small associated gas and fluid containing collections within the subcutaneous tissues of the anterior abdominal wall measure up to 1.5 x 0.6 cm. Sterility cannot be assessed by CT. 3. Left perirectal fistula with associated 3.3 x 1.1 cm rim enhancing fluid collection within the medial left gluteal fold consistent with an abscess. Adjacent stranding represents cellulitis. 4. Decrease in size of the 7 x 4.4 cm cystic left adnexal lesion. This remains indeterminate although is probably benign and could reflect a paraovarian cyst or a peritoneal inclusion cyst. 5. Decrease in bladder wall thickening. 6. Prominent left inguinal lymph node, likely reactive. ACT 112: Negative or not required by law. Electronically signed by: Car Gong M.D. 10/02/2023 1:17 PM ECG Additional Comments: Sinus tachycardia Otherwise normal ECG When compared with ECG of 20-SEP-2023 12:55, Nonspecific T wave abnormality, worse in Inferior leads Nonspecific T wave abnormality no longer evident in Anterior leads Confirmed by Emiliano Garcia ([id number]) on 10/02/2023 3:42:07 PM Code Status & VTE Plan Code Status Full code VTE Prophylaxis Plan VTE Prophylaxis will be ordered: Yes Supervising Physician Co-Signing Physician Notes I personally saw and examined the patient. I verified all silverio points and agree with Carlos Spence PA-C with the following exceptions and/or additions: 38 year old female medically complex patient with Crohn's disease and chronic fistula who presents to the ER with low back pain following recent course of Keflex antibiotics with concern for UTI although no dysuria. Her specialist care is at [facility]. She has known iron deficiency anemia requiring 3 units of blood since April. She reports generalized fatigue and weakness but no chest pain, shortness of breath or dizziness. O/E Pale and frail appearing, HS RRR, no murmurs, A/P Sepsis with source gluteal abscess - management per surgery. IV antibiotics (Zosyn/vancomycin). Patient refuses transfer too [facility] at this time but will have a telemedicine appointment with colorectal surgery there tomorrow. Iron deficiency anemia - she is not far from her baseline and no acute melena/hematochezia noted by the patient. Transfuse 1 unit packed RBCs and repeat CBC. Aim Hgb > 8 per prior GI recommendations. PG Care Time/CCT Total # of Minutes Spent Total Time Spent with Patient: Total time spent is greater than 50% in coordination of care (as documented) at patient's floor/unit and/or counseling patient: [place] [id number] INT INP/OBS CARE 3/75MIN Patient Type Established Medical Decision Making High Complexity Diagnoses Sepsis A41.9 Sepsis acute organ dysfunction status: unspecified Sepsis type: sepsis due to unspecified organism Abscess, gluteal, left L02.31 Iron deficiency anemia due to chronic blood loss D50.0 Anemia type: iron deficiency Iron deficiency anemia type: chronic blood loss Lactate blood increased R79.89 Acute cellulitis L03.90 History of DVT (deep vein thrombosis) Z86.718 Crohn's disease of colon with fistula K50.113 Rheumatoid arthritis M06.9 Chronic pain G89.29 (1) Sepsis Sepsis acute organ dysfunction status: unspecified Sepsis type: sepsis due to unspecified organism Qualified Code(s): A41.9 - Sepsis, unspecified organism (3) Anemia Anemia type: iron deficiency Iron deficiency anemia type: chronic blood loss Qualified Code(s): D50.0 - Iron deficiency anemia secondary to blood loss (chronic)
[2023-10-02] MEDS ORDERED: HYDROCORTISONE SOD SUCCINATE 100 MG/2 ML VIAL IV STA (17:07)
[2023-10-02] MEDS ORDERED: buprenorphine HCL 8 MG SUBL SL STA (17:12)
[2023-10-02] MEDS ORDERED: LACTATED RINGER'S 1,000 ML IV ONE (17:14)
[2023-10-02] MEDS ORDERED: PANTOprazole 40 MG in SYRINGE 0 ML IV ONE (17:45)
--- NOTE | 2023-10-02 19:05 | XRay Report ---
SINGLE VIEW CHEST CLINICAL HISTORY: Sepsis. FINDINGS: An AP, portable, semierect chest radiograph is compared to study dated 09/20/2023. Correlat ion is made with chest CT dated 08/04/2023. A left PICC line has been removed. The cardiomediastinal s ilhouette is unremarkable. There is diffuse coarsening of interstitium. No airspace consolidation or pleural effusion is identified. No pneumothorax is seen. The bony thorax is grossly intact. IMPRESSION: 1. There is nonspecific coarsening of the interstitium. Correlate clinically. 2. No airspace consolidation or large pleural effusion is identified. ACT 112: Negative or not required by law. Electronically signed by: Olivier Camarena M.D. 10/02/2023 7:04 PM
[2023-10-02 19:09] LABS: Appearance Urine Cloudy (Clear); Bacteria Urine Automated Negative (Negative); Bilirubin Urine Negative (Negative); Blood Urine 2+ (Negative); Cast Urine Automated 0 /lpf (0-5); Color Urine Yellow; Epithelial Cell Urine Auto 0-5 /lpf (0-5); Glucose Urine UA Negative (Negative); Ketones Urine Negative (Negative); Leukocyte Esterase Urine 2+ (Negative); Nitrite Urine Positive (Negative); Protein Urine Negative (Negative); Specific Gravity Urine > 1.045 (1.000-1.030); Urobilinogen Urine Negative (Negative); WBC Urine Automated >30 /hpf (0-5); pH Urine 6.5 (4.5-7.5)
[2023-10-02] MEDS ORDERED: ACETAMINOPHEN 325 MG TAB PO PRN (19:30)
--- NOTE | 2023-10-02 20:23 | Pharmacy Report ---
Pharmacy PK ABX Note - Date of Service October 02, 2023 - Assessment and Plan Assessment 38 year old F receiving Zosyn/vancomycin for treatment of gluteal abscess/fistulas secondary to Chron's disease. Pertinent microbiologic data includes: blood and urine cultures pending. Day # 1 of antimicrobial therapy. Plan Vancomycin * Loading dose: 1000 mg IV x 1 * Maintenance dose: 750 mg IV every 8 hours * Regimen is predicted to achieve target AUC/HU of 400-600 mg/L.hr * Random level ordered for: 10/03/23 @ 1200 Pharmacy will continue to follow and will adjust dose/frequency as necessary. Thank you. Pharmacy has transitioned to AUC monitoring for vancomycin. AUC/HU is the preferred PK/PD target and is associated with decreased risk of nephrotoxicity compared to traditional trough targets.
[2023-10-02] MEDS: PIPERACILLIN/TAZOBACTAM 4.5 GM in DEXTROSE 5% MINI-B 100 ML IV SCH (20:42)
[2023-10-02] MEDS ORDERED: HYDROCORTISONE SOD SUCCINATE 100 MG/2 ML VIAL IV SCH (22:00)
[2023-10-03] MEDS: VANCOMYCIN HCL 750 MG in SODIUM CHLORIDE 0.9% 250 ML IV SCH ×3 (00:13→15:19)
[2023-10-03] MEDS: buprenorphine HCL 8 MG SUBL SL SCH ×3 (00:23→20:53)
[2023-10-03] MEDS: HYDROCORTISONE SOD 50 MG in SYRINGE 0 ML IV SCH ×4 (00:58→20:51)
[2023-10-03] MEDS: PIPERACILLIN/TAZOBACTAM 4.5 GM in DEXTROSE 5% MINI-B 100 ML IV SCH ×3 (03:10→20:45)
[2023-10-03 04:50] LABS: Albumin Level 2.8 gm/dl (3.4-5.0); BUN Creatinine Ratio 16.7 (10-20); Bilirubin,Total 0.7 mg/dl (0.2-1.0); Calcium 8.4 mg/dl (8.6-10.3); Creatinine Clr Calc Pharmacy 109.5 ml/min; Est GFR (African American) 136.8 ml/min; Globulin 2.7 gm/dl (2.5-4.0); Magnesium 1.7 mg/dl (1.7-2.4); Potassium 3.8 mmol/L (3.5-5.1); Total Protein 5.5 gm/dl (6.0-8.3)
[2023-10-03 04:53] LABS: Anisocytosis Present; Basophils # (auto) 0.02 K/uL (0.00-0.20); Basophils % (auto) 0.2 %; Eosinophils # (auto) 0.01 K/uL (0.00-0.50); Eosinophils % (auto) 0.1 %; Hematocrit (blood only) 25.1 % (37.0-47.0); Hypochromasia Present; Immature Granulocytes % (auto) 1.6 %; Lymphocytes # (auto) 0.43 K/uL (1.20-3.40); Lymphocytes % (auto) 3.5 %; Mean Corpuscular Hemoglobin 20.6 pg (25.0-34.0); Mean Corpuscular Hgb Conc 27.9 g/dL (32.0-36.0); Mean Corpuscular Volume 73.8 fL (80.0-100.0); Mean Platelet Volume 9.1 fL (9.4-12.4); Monocytes # (auto) 0.23 K/uL (0.11-0.59); Monocytes % (auto) 1.9 %; Neutrophils % (auto) 92.7 %; Platelet Count 268 K/uL (130-400); RDW Coefficient of Variation 22.5 % (11.5-14.5); RDW Standard Deviation 60.3 fL (36.4-46.3); Tear Drop Cells 1+; White Blood Count 12.29 K/ul (4.8-10.8)
[2023-10-03 04:54] LABS: INR 1.1 (0.9-1.1); Prothrombin Time 11.6 Seconds (9.0-12.0)
[2023-10-03] MEDS ORDERED: FONDAPARINUX 5 MG/0.4 ML SQ SCH ×2 (09:00→11:45)
[2023-10-03] MEDS: PANTOprazole 40 MG TAB PO SCH ×2 (09:03→20:51)
--- NOTE | 2023-10-03 10:08 | Gastrointestinal Consultation ---
Date of Consultation October 03, 2023 Assessment & Plan (1) Enterocutaneous fistula: (2) Sepsis: (3) Crohn's disease of colon with fistula: (4) Abscess, gluteal, left: Plan -Given concern for abscess, would not recommend high-dose steroids. Consider reducing to her maintenance dose of Prednisone 20 mg daily. -Diet advanced to low fiber per patient request. -Continue IV abx as prescribed. -Continue supportive care. -Outpatient follow up with [facility] upon d/c. Thank you for allowing me to participate in the care of this patient. If you have any questions or concerns, please do not hesitate to contact us. Supervising Physician Co-Signing Physician Notes I saw the patient and agree with the findings as documented by SARAY Caldwell History of Present Illness Reason for Consultation: Crohn's flare Requesting Physician: Carlos Spence PA-C Attending Physician: Chapin Carrillo MD History of Present Illness Patient is a 37 y.o. female with a history of fistulizing Crohn's colitis diagnosed at the age of 11 admitted with low back pain and weakness. She is status post resection with diverting loop ostomy. She is pending a colorectal surgery at the end of October at [facility] for repair of fistulas. Reports she was on treatment with oral antibiotics for UTI which was diagnosed last week. On arrival, she was reporting significant back pain and concerned that her urinary infection was worsening. She underwent a CT in the ER with the following findings noted: [place], [place] [phone] CT Scan Report Patient: JANAY GIL Admit Date: 10/02/23 MR#: [id number] Address1: [address] [place] [address] Acct ID:[id number] Address2: Date: 1985 [facility] Zip: [place] [address] Age: 38 Location: ED Sex: F Room/Bed: Att Phy: Diagnosis: LOWER BACK PAIN Juani Phy: Katie Okeefe CRNP Service Date: 10/02/23 Fam Phy: Interpreting Phy: Car Gong MDAdmit Phy: Ordering Phy: Pérez Vidal DO cc: ~ CT OF THE ABDOMEN AND PELVIS WITH CONTRAST CLINICAL HISTORY: Sepsis. Back pain. Rectal abscess. COMPARISON STUDY: CT of the abdomen and pelvis July 06, 2023. TECHNIQUE: Following IV administration of 84 mL of Optiray, axial images of the abdomen and pelvis were obtained from the lung bases to the proximal femurs. Images were reviewed in the axial, sagittal, and coronal planes. IV contrast was administered without complication. Automated exposure control was utilized for the study. A dose lowering technique was utilized adhering to the principles of ALARA. CT DOSE: 437.47 mGy.cm FINDINGS: Lung bases are unremarkable. No pneumatosis, free air or portal venous gas is present. There are no hepatic lesions. There is no biliary or pancreatic ductal dilatation. Adrenal glands, kidneys and pancreas are unremarkable. There is no peripancreatic or pericholecystic infiltration. There are postoperative findings consistent with subtotal colectomy and right lower quadrant double barrel ileostomy. There is no evidence for a bowel obstruction. There is suspected mild wall thickening of several small bowel loops which are clustered within the lower abdomen and upper pelvis. Trace associated ascites is present. 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 The findings suggest a complex fistula with involvement of the anterior abdominal wall. Several small associated gas and fluid containing collections within the deep subcutaneous tissues of the anterior abdominal wall measure up to 1.5 x 0.6 cm. These are likely related to the fistula. In addition, there is a left perirectal fistula which extends through the levator ani. There is an associated 3.3 x 1.1 cm rim-enhancing fluid collection within the medial left gluteal fold with adjacent stranding. This contains trace gas. This represents an abscess. Prominent left inguinal lymph node is likely reactive. Cystic left adnexal lesion has slightly decreased in size. This measures 7 x 4.4 cm. An enhancing nodular focus within this lesion may reflect the left ovary. Major vasculature is patent. Bladder wall thickening has slightly decreased since prior exam. IMPRESSION: 1. Status post subtotal colectomy with right lower quadrant ileostomy. No evidence for a bowel obstruction. Mild wall thickening of several clustered small bowel loops with trace associated ascites. This may reflect active inflammatory bowel disease. 2. 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 Several small associa clemencia gas and fluid containing collections within the subcutaneous tissues of the anterior abdominal wall measure up to 1.5 x 0.6 cm. Sterility cannot be assessed by CT. 3. Left perirectal fistula with associated 3.3 x 1.1 cm rim enhancing fluid collection within the medial left gluteal fold consistent with an abscess. Adjacent stranding represents cellulitis. 4. Decrease in size of the 7 x 4.4 cm cystic left adnexal lesion. This remains indeterminate although is probably benign and could reflect a paraovarian cyst or a peritoneal inclusion cyst. 5. Decrease in bladder wall thickening. 6. Prominent left inguinal lymph node, likely reactive. She was evaluated by general surgery and no surgical intervention was recommended. She has been started on IV antibiotics in this regard. She is currently on a clear liquid diet and requesting diet advancement as no surgical intervention is recommended. Patient has been taking Prednisone 20 mg daily at home. Has been started on high dose IV steroids by hospitalist on admission. No abdominal pain, n/v, or blood in ostomy reported. Allergies Allergy/AdvReac Type Severity Reaction Status Date / Time adalimumab [From Humira] Allergy Severe Anaphylaxis Unverified 10/02/23 13:02 aspirin Allergy Severe ANAPHYLAXIS Unverified 10/02/23 13:02 infliximab Allergy Severe ANAPHYLAXIS Verified 10/02/23 13:02 NSAIDS (Non-Steroidal Allergy Unknown THROAT Verified 10/02/23 13:02 Anti-Inflamma SWELLING Sulfa (Sulfonamide Allergy Unknown throat Unverified 10/02/23 13:02 Antibiotics) swelling bee venom protein (honey bee) Allergy Anaphylaxis Verified 10/02/23 13:02 ketorolac [From Toradol] Allergy Swelling Verified 10/02/23 13:02 of Lip/Tongue/Throat azathioprine AdvReac Unknown MIGRAINE Verified 10/02/23 13:02 Home Medications Medication Instructions Recorded Confirmed Type epinephrine 0.3 mg/0.3 mL 0.3 mg IM Q4H PRN Allergic Reaction 08/26/22 10/02/23 History injection, auto-injector fondaparinux 5 mg/0.4 mL 5 mg subcut .EVERY OTHER DAY 08/04/23 10/02/23 History subcutaneous solution syringe pantoprazole 20 mg tablet,delayed 20 mg PO BID 08/22/23 10/02/23 History release acetaminophen 325 mg tablet 650 mg PO QID PRN Pain 10/02/23 10/02/23 History (Tylenol) buprenorphine HCl 8 mg sublingual 8 mg sublingual BID 10/02/23 10/02/23 History tablet prednisone 10 mg tablet 0 mg PO DAILY 10/02/23 10/02/23 History Patient History Medical History Protein calorie malnutrition Severe protein-calorie malnutrition Small bowel obstruction Endometriosis Crohn's disease of colon with fistula History of MRSA infection "per records" Rheumatoid arthritis Surgical History History of rectal surgery "hundreds of fistula surgeries" S/P exploratory laparotomy endometriosis H/O resection of large bowel multiple resections and clean outs H/O colectomy "total colectomy with ileoanal anastomosis 03/2006" Family History Other Blood clot in vein Social History Smoking Status: Current every day smoker Tobacco Type: E-cigarettes / Vaping Cigarettes Per Day: 1 cigarette per day; Second Hand Exposure: No; Do You Dip or Chew Tobacco: No; Hx Alcohol Use: No Hx Substance Use: No Preferred Language: Romanian Communication Ability: Effective Foster Care Therapist Required: No Beliefs That Will Affect Care: None Current Living Situation: Family Current Living Situation Comment: Lives at home with daughter Feels Safe at Home: Yes Assistive Devices: None Review of Systems Constitutional: no fever and no chills Respiratory: no problem reported Cardiovascular: no problem reported Gastrointestinal: as per Subjective / HPI Physical Exam Constitutional: WD/WN, vitals as above Respiratory: normal respiratory effort, lungs clear to auscultation Cardiovascular: RRR, no murmur, no edema Gastrointestinal (Abdomen): normal bowel sounds, soft, nontender, no hepatosplenomegaly ostomy in RLQ Psychiatric: A+Ox3, euthymic affect Results & Data Vital Signs (Past 12 Hours) Vital Signs Temp Pulse Pulse Resp BP BP Pulse Ox 10/03/23 09:06 73 18 93/65 L 98 10/03/23 07:07 59 L 10/03/23 06:00 66 12 97 10/03/23 06:00 90/59 L 10/03/23 05:30 67 14 96 10/03/23 05:00 66 12 98 10/03/23 05:00 93/63 L 10/03/23 04:34 101/54 L 10/03/23 04:34 85 10/03/23 04:00 62 16 97 10/03/23 04:00 93/64 L 10/03/23 03:30 62 13 98 10/03/23 03:21 66 12 97 10/03/23 03:21 95/64 L 10/03/23 03:20 36.8 C 65 12 95/64 L 97 10/03/23 03:00 63 13 98 10/03/23 02:30 69 14 97 10/03/23 02:09 65 17 97 10/03/23 01:30 68 13 97 10/03/23 01:00 68 12 97 10/03/23 00:30 68 12 96 10/03/23 00:10 68 18 97 10/03/23 00:01 36.6 C 69 20 86/60 L 10/03/23 00:00 69 20 97 10/03/23 00:00 86/60 L 10/02/23 23:43 68 10/02/23 23:30 89/54 L 10/02/23 23:30 71 13 96 10/02/23 23:01 36.8 C 73 16 90/63 L 10/02/23 23:00 73 15 96 10/02/23 23:00 90/63 L 10/02/23 22:45 93/61 L 10/02/23 22:45 76 12 96 10/02/23 22:31 36.8 C 69 13 93/57 L 96 10/02/23 22:30 93/57 L 10/02/23 22:30 78 16 96 10/02/23 22:16 36.9 C 77 16 89/56 L 96 10/02/23 22:15 80 15 10/02/23 22:15 89/56 L O2 Del Method 10/03/23 09:06 Room Air 10/03/23 07:07 10/03/23 06:00 10/03/23 06:00 10/03/23 05:30 10/03/23 05:00 10/03/23 05:00 10/03/23 04:34 10/03/23 04:34 10/03/23 04:00 10/03/23 04:00 10/03/23 03:30 10/03/23 03:21 10/03/23 03:21 10/03/23 03:20 Room Air 10/03/23 03:00 10/03/23 02:30 10/03/23 02:09 10/03/23 01:30 10/03/23 01:00 10/03/23 00:30 10/03/23 00:10 10/03/23 00:01 10/03/23 00:00 10/03/23 00:00 10/02/23 23:43 10/02/23 23:30 10/02/23 23:30 10/02/23 23:01 10/02/23 23:00 10/02/23 23:00 10/02/23 22:45 10/02/23 22:45 10/02/23 22:31 10/02/23 22:30 10/02/23 22:30 10/02/23 22:16 10/02/23 22:15 10/02/23 22:15 Diagnostic Findings Abnormal lab results 10/02/23 10/02/23 10/02/23 Range/Units 11:14 13:59 18:30 WBC 17.24 H (4.8-10.8) K/ul RBC 3.85 L (4.20-5.40) M/uL Hgb 7.2 L (12.0-16.0) g/dl Hct 26.9 L (37.0-47.0) % MCV 69.9 L (80.0-100.0) fL MCH 18.7 L (25.0-34.0) pg MCHC 26.8 L (32.0-36.0) g/dL RDW Std Deviation 55.5 H (36.4-46.3) fL RDW Coeff of [place] 22.3 H (11.5-14.5) % Plt Count 428 H (130-400) K/uL MPV 9.2 L (9.4-12.4) fL Neut # (Auto) 15.29 H (1.40-6.50) K/uL Lymph # (Auto) 0.87 L (1.20-3.40) K/uL [place] # (Auto) 0.79 H (0.11-0.59) K/uL Immature Gran # (Auto) 0.24 H (0.01-0.20) K/uL Sodium 133 L (136-145) mmol/L Chloride 94 L (98-107) mmol/L Creatinine (0.6-1.2) mg/dl Lactate 2.7 H* (0.4-2.0) mmol/L Calcium (8.6-10.3) mg/dl Iron (35-150) mcg/dl Total Bilirubin 1.4 H (0.2-1.0) mg/dl AST 9 L (13-39) U/L Total Protein (6.0-8.3) gm/dl Albumin (3.4-5.0) gm/dl Urine Appearance Cloudy A (Clear) Ur Specific [place] > 1.045 H (1.000-1.030) Urine Blood 2+ H (Negative) Urine Nitrite Positive A (Negative) Ur Leukocyte Esterase 2+ H (Negative) Urine WBC (Auto) >30 H (0-5) /hpf Urine RBC (Auto) 10-30 H (0-4) /hpf Antibody Screen POSITIVE A Crossmatch See Detail 10/03/23 Range/Units 04:10 WBC 12.29 H (4.8-10.8) K/ul RBC 3.40 L (4.20-5.40) M/uL Hgb 7.0 L (12.0-16.0) g/dl Hct 25.1 L (37.0-47.0) % MCV 73.8 L D (80.0-100.0) fL MCH 20.6 L (25.0-34.0) pg MCHC 27.9 L (32.0-36.0) g/dL RDW Std Deviation 60.3 H (36.4-46.3) fL RDW Coeff of [place] 22.5 H (11.5-14.5) % Plt Count (130-400) K/uL MPV 9.1 L (9.4-12.4) fL Neut # (Auto) 11.40 H (1.40-6.50) K/uL Lymph # (Auto) 0.43 L (1.20-3.40) K/uL [place] # (Auto) (0.11-0.59) K/uL Immature Gran # (Auto) (0.01-0.20) K/uL Sodium 135 L (136-145) mmol/L Chloride (98-107) mmol/L Creatinine 0.54 L (0.6-1.2) mg/dl Lactate (0.4-2.0) mmol/L Calcium 8.4 L (8.6-10.3) mg/dl Iron 27 L (35-150) mcg/dl Total Bilirubin (0.2-1.0) mg/dl AST 8 L (13-39) U/L Total Protein 5.5 L D (6.0-8.3) gm/dl Albumin 2.8 L (3.4-5.0) gm/dl Urine Appearance (Clear) Ur Specific [place] (1.000-1.030) Urine Blood (Negative) Urine Nitrite (Negative) Ur Leukocyte Esterase (Negative) Urine WBC (Auto) (0-5) /hpf Urine RBC (Auto) (0-4) /hpf Antibody Screen Crossmatch PG Care Time/CCT Total # of Minutes Spent Total Time Spent with Patient: Total time spent is greater than 50% in coordination of care (as documented) at patient's floor/unit and/or counseling patient: Coding Level of Care Code 66913 INT INP/OBS CARE MIN Diagnoses Enterocutaneous fistula K63.2 Sepsis A41.9 Sepsis acute organ dysfunction status: unspecified Sepsis type: sepsis due to unspecified organism Crohn's disease of colon with fistula K50.113 Abscess, gluteal, left L02.31 (2) Sepsis Sepsis acute organ dysfunction status: unspecified Sepsis type: sepsis due to unspecified organism Qualified Code(s): A41.9 - Sepsis, unspecified organism
--- NOTE | 2023-10-03 10:40 | Surgery Progress Note ---
Date of Service October 03, 2023 Assessment & Plan (1) Abscess, gluteal, left: Plan: Her vital signs are much improved today, leukocytosis improved Clinically she is doing better with less pain her chronic fistula is draining she is having less pain She is tolerating a diet function without abdominal pain There is really nothing for me to add at this point, no plans for an I&D of chronic fistula as it is draining She is encouraged to follow-up with her surgeons this afternoon General surgery will sign off at this time, please call with any questions or concerns (2) Enterocutaneous fistula: Admission and Anticipated Discharge Date Admission Date: October 02, 2023 Subjective Patient seen and examined. Feeling much better. Her buttock fistula drained a bunch yesterday and is less painful. She states her back pain is better as well. She received some blood last night for hemoglobin of 7. Afebrile. Review of Systems Constitutional: no fever and no chills Physical Exam Constitutional: no acute distress Eyes: PERRL, conjunctivae normal, anicteric sclerae ENMT: external ear and nose normal, oropharynx normal Neck: trachea midline, no thyromegaly Respiratory: normal respiratory effort, lungs clear to auscultation Cardiovascular: RRR, no murmur, no edema Gastrointestinal (Abdomen): Ileostomy pink with output EC fistula in center of abdomen with output Abdomen is soft and nontender, no erythema or signs of abscess Left buttock with chronically indurated and draining fistula, tender to touch Musculoskeletal: no cyanosis or clubbing, extremities motor strength 5/5 Skin: no rashes, warm and dry Neurologic: PERRL, EOMI, accommodation nl, no face palsy, no dysarthria Psychiatric: A+Ox3, euthymic affect Results & Data Vital Signs (Past 12 Hours) Vital Signs Temp Pulse Pulse Resp BP BP Pulse Ox 10/03/23 09:06 73 18 93/65 L 98 10/03/23 07:07 59 L 10/03/23 06:00 66 12 97 10/03/23 06:00 90/59 L 10/03/23 05:30 67 14 96 10/03/23 05:00 66 12 98 10/03/23 05:00 93/63 L 10/03/23 04:34 101/54 L 10/03/23 04:34 85 11/30/23 04:00 62 16 97 10/03/23 04:00 93/64 L 10/03/23 03:30 62 13 98 10/03/23 03:21 66 12 97 10/03/23 03:21 95/64 L 10/03/23 03:20 36.8 C 65 12 95/64 L 97 10/03/23 03:00 63 13 98 10/03/23 02:30 69 14 97 10/03/23 02:09 65 17 97 10/03/23 01:30 68 13 97 10/03/23 01:00 68 12 97 10/03/23 00:30 68 12 96 10/03/23 00:10 68 18 97 10/03/23 00:01 36.6 C 69 20 86/60 L 10/03/23 00:00 69 20 97 10/03/23 00:00 86/60 L 10/02/23 23:43 68 10/02/23 23:30 89/54 L 10/02/23 23:30 71 13 96 10/02/23 23:01 36.8 C 73 16 90/63 L 10/02/23 23:00 73 15 96 10/02/23 23:00 90/63 L 10/02/23 22:45 93/61 L 10/02/23 22:45 76 12 96 O2 Del Method 10/03/23 09:06 Room Air 10/03/23 07:07 10/03/23 06:00 10/03/23 06:00 10/03/23 05:30 10/03/23 05:00 10/03/23 05:00 10/03/23 04:34 10/03/23 04:34 10/03/23 04:00 10/03/23 04:00 10/03/23 03:30 10/03/23 03:21 10/03/23 03:21 10/03/23 03:20 Room Air 10/03/23 03:00 10/03/23 02:30 10/03/23 02:09 10/03/23 01:30 10/03/23 01:00 10/03/23 00:30 10/03/23 00:10 10/03/23 00:01 10/03/23 00:00 10/03/23 00:00 10/02/23 23:43 10/02/23 23:30 10/02/23 23:30 10/02/23 23:01 10/02/23 23:00 10/02/23 23:00 10/02/23 22:45 10/02/23 22:45 PG Care Time/CCT Total # of Minutes Spent Total Time Spent with Patient: Total time spent is greater than 50% in coordination of care (as documented) at patient's floor/unit and/or counseling patient: Coding Level of Care Code 73061 SUB INP/OBS CARE 25MIN Diagnoses Abscess, gluteal, left L02.31 Enterocutaneous fistula K63.2
[2023-10-03] MEDS ORDERED: PANTOprazole 40 MG in SYRINGE 0 ML IV SCH (11:00)
[2023-10-03] MEDS ORDERED: VANCOMYCIN LEVEL ONE (12:00)
--- NOTE | 2023-10-03 13:14 | Pharmacy Report ---
Pharmacy PK ABX Note - Date of Service October 03, 2023 - Assessment and Plan Assessment 38 year old F receiving Zosyn/vancomycin for treatment of gluteal abscess/fistulas secondary to Chron's disease. Pertinent microbiologic data includes: blood cultures negative at 24 hours, urine culture no growth. Random level today 13.8 mcg/mL, suggests therapeutic dosing. Will continue current dosing, get level closer to steady state. Leukocytosis improving. Appears no plans for I&D at this time. Day # 2 of antimicrobial therapy. Plan Vancomycin * Random level 13.8 mcg/mL * Loading dose: 1000 mg IV x 1 * Continue Maintenance dose: 750 mg IV every 8 hours * Regimen is predicted to achieve target AUC/HU of 400-600 mg/L.hr * Random level ordered for: 10/04/23 @ 1200 Pharmacy will continue to follow and will adjust dose/frequency as necessary. Thank you. Pharmacy has transitioned to AUC monitoring for vancomycin. AUC/HU is the preferred PK/PD target and is associated with decreased risk of nephrotoxicity compared to traditional trough targets.
--- NOTE | 2023-10-03 15:39 | Hospitalist Progress Note ---
Date of Service October 03, 2023 Assessment & Plan (1) Sepsis: Plan: Present on admission. No septic shock. She is on parenteral antibiotic therapy. (2) Abscess, gluteal, left: Plan: General surgery consultation noted. They believe she does not have an abscess and there is no operative intervention necessary at this time. She remains on intravenous vancomycin and Zosyn however. She will eventually follow-up with her physicians at the [facility] (3) Anemia: Plan: Chronic. Iron deficiency documented. She states she is allergic to parenteral iron however. She has received 1 unit packed red blood cells and ferrous sulfate has been started orally. Will monitor daily. No evidence of GI bleeding. (4) Lactate blood increased: Plan: Due to sepsis present on admission. Now normalized. (5) Acute cellulitis: Plan: Suspected and left gluteal region. General surgery consultation and recommendations appreciated. No apparent abscess formation and no indication for surgical intervention. She currently is on intravenous Zosyn and vancomycin. (6) History of DVT (deep vein thrombosis): Plan: continue every other day Fondaparinux for now (7) Crohn's disease of colon with fistula: Plan: appears to be having a Chron's flare on CT of the abd/pelvis today . She states she has not had prednisone in the past 48 hours prior to admission. She is now on parenteral steroid therapy. This will be switched back to oral therapy when her home dose is confirmed (8) Rheumatoid arthritis: Plan: PO prednisone on hold while on IV steroids (9) Chronic pain: Plan: Continue SL buprenorphine prn Plan Hopeful discharge to home on oral antibiotic tomorrowOctober 04 Admission and Anticipated Discharge Date Admission Date: October 02, 2023 Subjective Alert and oriented. Surgery consultation noted. No operative intervention necessary at this time. She remains on vancomycin and Zosyn. She received 1 unit of packed red blood cells. She states she cannot take parenteral iron. Iron levels are low. Start ferrous sulfate orally. Will switch back to oral prednisone when usual home dose is confirmed. Hopefully home tomorrowOctober 04 Review of Systems 2 Review of Systems: Constitutional-no fever or chills ENT-no blurred vision, no double vision, no epistaxis, no sore throat Respiratory-no cough, no wheezing, no shortness of breath Cardiac-no palpitations, no chest pain, no syncope GI-no nausea, vomiting, diarrhea, melena, hematochezia -no urinary retention, no urinary incontinence, no dysuria, no hematuria Musculoskeletal-Charlene- rectal discomfort which is chronic but has worsened recently. Skin-no bruising, no rashes, no pruritus Neuro-no isolated weakness, no paresthesia, no weakness Psych-no depression, no anxiety Physical Exam 2 Physical Exam: General-alert and oriented x3, no fevers, no chills HEENT-head atraumatic and normocephalic, pupils equal and reactive to light, extraocular muscles intact Neck-no lymphadenopathy or thyromegaly, trachea midline Chest-clear to auscultation percussion. No rales wheezing or rhonchi Cardiac-regular rate and rhythm, normal S1 and S2 Abdomen-normal bowel sounds, nontender, no hepatosplenomegaly Extremities-no cyanosis, clubbing, or edema Neuro-cranial nerves II through XII intact, motor and sensory function within normal limits, strength symmetrical, no focal deficits Psych-normal affect, normal mood Results & Data Results & Data Vital Signs (Past 12 Hours) Vital Signs Pulse Pulse Resp BP BP Pulse Ox O2 Del Method 10/03/23 14:00 100 H 20 10/03/23 13:30 95 H 15 10/03/23 13:00 89 14 10/03/23 12:30 73 15 10/03/23 12:00 82 17 10/03/23 11:39 81 16 99 10/03/23 11:39 99/71 L 10/03/23 11:30 81 20 100 10/03/23 11:00 79 15 100 10/03/23 10:48 92 H 22 100 10/03/23 10:00 87 23 100 10/03/23 09:30 73 17 10/03/23 09:06 73 18 93/65 L 98 Room Air 10/03/23 09:00 93/65 L 10/03/23 09:00 63 14 97 10/03/23 08:30 63 15 97 10/03/23 08:00 61 16 98 10/03/23 08:00 103/69 10/03/23 07:30 59 L 12 97 10/03/23 07:07 59 L 10/03/23 07:00 58 L 12 97 10/03/23 07:00 106/66 10/03/23 06:30 65 12 97 10/03/23 06:00 66 12 97 10/03/23 06:00 90/59 L 10/03/23 05:30 67 14 96 10/03/23 05:00 66 12 98 10/03/23 05:00 93/63 L 10/03/23 04:34 101/54 L 10/03/23 04:34 85 10/03/23 04:00 62 16 97 10/03/23 04:00 93/64 L Laboratory Results 10/03/23 04:10 10/03/23 04:10 PG Care Time/CCT Total # of Minutes Spent Total Time Spent with Patient: Total time spent is greater than 50% in coordination of care (as documented) at patient's floor/unit and/or counseling patient: Coding Level of Care Code 87129 SUB INP/OBS CARE 3/50MIN Diagnoses Sepsis A41.9 Sepsis acute organ dysfunction status: unspecified Sepsis type: sepsis due to unspecified organism Abscess, gluteal, left L02.31 Iron deficiency anemia due to chronic blood loss D50.0 Anemia type: iron deficiency Iron deficiency anemia type: chronic blood loss Lactate blood increased R79.89 Acute cellulitis L03.90 History of DVT (deep vein thrombosis) Z86.718 Crohn's disease of colon with fistula K50.113 Rheumatoid arthritis M06.9 Chronic pain G89.29 (1) Sepsis Sepsis acute organ dysfunction status: unspecified Sepsis type: sepsis due to unspecified organism Qualified Code(s): A41.9 - Sepsis, unspecified organism (3) Anemia Anemia type: iron deficiency Iron deficiency anemia type: chronic blood loss Qualified Code(s): D50.0 - Iron deficiency anemia secondary to blood loss (chronic)
[2023-10-03] MEDS: FERROUS SULFATE 325 MG TAB PO SCH (18:33)
[2023-10-04] MEDS: VANCOMYCIN HCL 750 MG in SODIUM CHLORIDE 0.9% 250 ML IV SCH ×2 (00:32→10:39)
[2023-10-04] MEDS ORDERED: Nursing to Pharmacy Communication SCH (00:45)
[2023-10-04] MEDS: PIPERACILLIN/TAZOBACTAM 4.5 GM in DEXTROSE 5% MINI-B 100 ML IV SCH ×2 (03:02→12:26)
[2023-10-04] MEDS: HYDROCORTISONE SOD 50 MG in SYRINGE 0 ML IV SCH (05:14)
[2023-10-04 06:19] LABS: Hematocrit (blood only) 24.1 % (37.0-47.0); Mean Corpuscular Hemoglobin 20.3 pg (25.0-34.0); Mean Corpuscular Hgb Conc 27.4 g/dL (32.0-36.0); Mean Corpuscular Volume 74.2 fL (80.0-100.0); Mean Platelet Volume 9.2 fL (9.4-12.4); Platelet Count 297 K/uL (130-400); RDW Coefficient of Variation 23.2 % (11.5-14.5); RDW Standard Deviation 61.8 fL (36.4-46.3); Red Blood Count 3.25 M/uL (4.20-5.40)
[2023-10-04 06:28] LABS: Albumin Level 2.8 gm/dl (3.4-5.0); Bilirubin,Total 0.3 mg/dl (0.2-1.0); Calcium 8.3 mg/dl (8.6-10.3); Est GFR (African American) 131.4 ml/min; Est GFR (Non-African American) 113.4 ml/min; Globulin 2.7 gm/dl (2.5-4.0); Potassium 3.6 mmol/L (3.5-5.1); Total Protein 5.5 gm/dl (6.0-8.3)
[2023-10-04] MEDS ORDERED: SODIUM CHLORIDE 0.9% 250 ML IV PRN (06:30)
[2023-10-04 06:45] LABS: Anisocytosis Present; Basophils # (auto) 0.01 K/uL (0.00-0.20); Basophils % (auto) 0.2 %; Eosinophils # (auto) 0.01 K/uL (0.00-0.50); Eosinophils % (auto) 0.2 %; Hypochromasia Present; Immature Granulocytes % (auto) 1.5 %; Lymphocytes # (auto) 1.01 K/uL (1.20-3.40); Lymphocytes % (auto) 15.3 %; Monocytes # (auto) 0.31 K/uL (0.11-0.59); Monocytes % (auto) 4.7 %; Neutrophils # (auto) 5.16 K/uL (1.40-6.50); Neutrophils % (auto) 78.1 %; Polychromasia 2+
[2023-10-04 07:45] LABS: Hemoglobin 6.6 g/dl (12.0-16.0)
[2023-10-04] MEDS: PANTOprazole 40 MG TAB PO SCH (08:25)
[2023-10-04] MEDS: FERROUS SULFATE 325 MG TAB PO SCH (08:25)
[2023-10-04] MEDS: buprenorphine HCL 8 MG SUBL SL SCH (08:25)
[2023-10-04] MEDS ORDERED: VANCOMYCIN LEVEL ONE (12:00)
[2023-10-04] MEDS ORDERED: AMOXICILLIN/CLAVULANATE 875 MG TAB PO ONE (12:32)
[2023-10-04] MEDS ORDERED: predniSONE 20 MG TAB PO SCH (12:45)
--- NOTE | 2023-10-04 13:23 | Discharge Summary ---
Date of Service October 04, 2023 Admission HPI Per Admitting Provider Elsie Black is a 38 yo female with complex medical history to include Crohns disease s/p colectomy with ileostomy and mucus fistula, chronic perianal fistula, chronic anemia, failure to thrive (Previously on TPN and Fat emulsion therapy), hx of DVT (On Fundaparinux) who presented to the [facility] ED on 10/02 with complaints of generalized weakness and low back pain with radiation down the BL leg. On arrival she was noted to have soft BP's with systolics in the 90's and HR in the 110's but otherwise stable. Labs were significant for a leukocytosis of 17 with neutrophil predominance of 15, Hgb of 7.2 (down from 7.9 as of 09/20), MCV of 69, MCHC of 26, sodium of 133, initial lactate of 2.7 which decreased to 1.7 on repeat, and total bili of 1.4. CT of the abd/pelvis w/IV con was read as "1. Status post subtotal colectomy with right lower quadrant ileostomy. No evidence for a bowel obstruction. Mild wall thickening of several clustered small bowel loops with trace associated ascites. This may reflect active inflammatory bowel disease. 2. 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 Several small associated gas and fluid containing collections within the subcutaneous tissues of the anterior abdominal wall measure up to 1.5 x 0.6 cm. Sterility cannot be assessed by CT. 3. Left perirectal fistula with associated 3.3 x 1.1 cm rim enhancing fluid collection within the medial left gluteal fold consistent with an abscess. Adjacent stranding represents cellulitis. 4. Decrease in size of the 7 x 4.4 cm cystic left adnexal lesion. This remains indeterminate although is probably benign and could reflect a paraovarian cyst or a peritoneal inclusion cyst. 5. Decrease in bladder wall thickening. 6. Prominent left inguinal lymph node, likely reactive.". General surgery was consulted and evaluated the patient. At this time they do not believe that she has an abdominal wall abscess and believes she could be treated conservatively for her enterocutaneous fistula with IV antibiotics. The ED staff spoke with her Colorectal Surgeon at the [facility] (Dr. Alilson Yee). She explained that the patient's enterocutaneous abscess could be safely drained by our surgical team here. She agrees with IV antibiotics and actually has a telemedicine appointment with the patient tomorrow at 4:30pm. Prior to admission the patient was given 2.5 L NSS, a dose of ceftriaxone, Zosyn, and Vancomycin. At the time of the exam the patient was sitting in bed in no acute distress. She states that she has had the left gluteal enterocutaneous fistual for approximately 10+ years. Typically it remains open and drains. Approximately 3-4 days she started to notice increased swelling and discomfort at the fistula site with significantly less drainage. She states that she was treated for a UTI/"Kidney Infection" from an acute care clinic approximately 2 weeks ago. She confirms that she completed her course of abx. Over the past week she developed symptoms such as generalized weakness, chills, body aches, and a subjective fever. She initially thought she had a respiratory virus. Las night she developed acute onset of low back pain which she thought could be related to her recent UTI. She was unable to tolerate PO intake today prompting her to come to the ED. She states that she has not had a dose of her chronic prednisone over the past 48 hours and did not have her am dose of Buprenorphine today. She fells slightly improved compared to her arrival to the ED. She is adamant that she would not want to be transferred to the [facility] at this time and would not want to restart TPN if recommended. Please refer to Dr. Carrillo's attestation for any changes to the treatment plan Principal Diagnosis Left gluteal cellulitis, iron deficiency anemia Discharge Exam General-alert and oriented x3, no fevers, no chills HEENT-head atraumatic and normocephalic, pupils equal and reactive to light, extraocular muscles intact Neck-no lymphadenopathy or thyromegaly, trachea midline Chest-clear to auscultation percussion. No rales wheezing or rhonchi Cardiac-regular rate and rhythm, normal S1 and S2 Abdomen-normal bowel sounds, nontender, no hepatosplenomegaly Extremities-no cyanosis, clubbing, or edema Neuro-cranial nerves II through XII intact, motor and sensory function within normal limits, strength symmetrical, no focal deficits Psych-normal affect, normal mood Discharge Data Allergies Allergy/AdvReac Type Severity Reaction Status Date / Time adalimumab [From Humira] Allergy Severe Anaphylaxis Unverified 10/02/23 13:02 aspirin Allergy Severe ANAPHYLAXIS Unverified 10/02/23 13:02 infliximab Allergy Severe ANAPHYLAXIS Verified 10/02/23 13:02 NSAIDS (Non-Steroidal Allergy Unknown THROAT Verified 10/02/23 13:02 Anti-Inflamma SWELLING Sulfa (Sulfonamide Allergy Unknown throat Unverified 10/02/23 13:02 Antibiotics) swelling bee venom protein (honey bee) Allergy Anaphylaxis Verified 10/02/23 13:02 ketorolac [From Toradol] Allergy Swelling Verified 10/02/23 13:02 of Lip/Tongue/Throat azathioprine AdvReac Unknown MIGRAINE Verified 10/02/23 13:02 Consultations 10/02/23 16:40 ED Decision to Admit Stat 10/02/23 17:15 Consult Gastroenterology Routine Ordered Studies 10/02/23 11:46 CT abd pelvis IV con only Stat Hospital Course (1) Sepsis: Present on admission. No septic shock. Treated with vancomycin and Zosyn while hospitalized. She will be discharged on oral Augmentin . (2) Abscess, gluteal, left: General surgery consultation noted. They believe she does not have an abscess and there is no operative intervention necessary at this time. Treated while hospitalized with vancomycin and Zosyn. She will eventually follow-up with her physicians at the [facility]. Augmentin at discharge (3) Anemia: Chronic. Iron deficiency documented. She states she is allergic to parenteral iron however. She has received 1 unit packed red blood cells and ferrous sulfate has been started orally. Will monitor daily. No evidence of GI bleeding. (4) Lactate blood increased: Due to sepsis present on admission. Now normalized. (5) Acute cellulitis: Suspected and left gluteal region. General surgery consultation and recommendations appreciated. No apparent abscess formation and no indication for surgical intervention. She was treated while hospitalized with Zosyn and vancomycin. Discharged on Augmentin (6) History of DVT (deep vein thrombosis): continue every other day Fondaparinux for now (7) Crohn's disease of colon with fistula: appears to be having a Chron's flare on CT of the abd/pelvis today . She states she has not had prednisone in the past 48 hours prior to admission. Treated while hospitalized with parenteral steroid therapy. Now switched back to oral therapy (8) Rheumatoid arthritis: PO prednisone dependent (9) Chronic pain: Continue SL buprenorphine prn Plan Home today, October 04, on Augmentin Total Time Total Time Spent Total Time Spent (In Minutes): 45-minute Discharge Plan Discharge Items Patient Disposition: Home - Self-Care Reason For Visit: GENERALIZED WEAKNESS, PROGRESSIVE ENTEROCUTANEOUS Discharge Diagnosis: Left gluteal cellulitis, iron deficiency anemia Activity: Resume your previous activity Non-emergency contact: Primary Care Provider Call non-emergency contact if: you have any medication questions and your symptoms worsen Follow-up/Referrals: Katie Okeefe CRNP [Primary Care Provider] - (PLEASE CALL YOUR PRIMARY CARE PROVIDER TO SCHEDULE A HOSPITAL FOLLOW-UP DISCHARGE APPOINTMENT WITHIN 7-10 DAYS.) Diet: Regular Addtl Attending Provider Instructions: Take Augmentin (amoxicillin/clavulanate) twice daily for 10 days. Take ferrous sulfate tablets twice daily for iron Pending Studies at Discharge: No Stand-Alone Forms: ADENTS HTI, Smoking Cessation Medications and DC Order Prescriptions: New prednisone 20 mg Tablet 20 mg PO DAILY Qty: 30 0RF ferrous sulfate 325 mg (65 mg iron) Tablet,Delayed Release (Dr/Ec) 325 mg PO BIDM Qty: 6 0RF amoxicillin-pot clavulanate 875-125 mg Tablet 1 tab PO BIDM Qty: 20 0RF Continued epinephrine 0.3 mg/0.3 mL Auto-Injector 0.3 mg IM Q4H PRN (Reason: Allergic Reaction) fondaparinux 5 mg/0.4 mL syringe 5 mg subcut .EVERY OTHER DAY acetaminophen [Tylenol] 325 mg Tablet 650 mg PO QID PRN (Reason: Pain) buprenorphine HCl 8 mg tablet, sublingual 8 mg SUBLINGUAL BID pantoprazole 20 mg Tablet,Delayed Release (Dr/Ec) 20 mg PO BID Discontinued prednisone 10 mg tablet 0 mg PO DAILY Discharge Orders: Discharge Order (Routine); Ordered 10/04/23 Ordered By: Raeligh Loving Admission Data Admit Date/Time: 10/02/23 16:45 Attending Provider: Raleigh Loving Admit Provider: Chapin Carrillo Primary Care Provider: Katie Okeefe Other Providers: Chapin Carrillo; Luis Miguel Hernández Coding Level of Care Code 16998 INP/OBS DISCH >30 MIN Diagnoses Sepsis A41.9 Sepsis acute organ dysfunction status: unspecified Sepsis type: sepsis due to unspecified organism Abscess, gluteal, left L02.31 Iron deficiency anemia due to chronic blood loss D50.0 Anemia type: iron deficiency Iron deficiency anemia type: chronic blood loss Lactate blood increased R79.89 Acute cellulitis L03.90 History of DVT (deep vein thrombosis) Z86.718 Crohn's disease of colon with fistula K50.113 Rheumatoid arthritis M06.9 Chronic pain G89.29
[2023-10-04] MEDS ORDERED: AMOXICILLIN/CLAVULANATE 875 MG TAB PO SCH (17:00)
[2023-10-05] MEDS ORDERED: FONDAPARINUX 5 MG/0.4 ML SQ SCH (09:00)
[2023-10-05] MEDS ORDERED: VANCOMYCIN LEVEL ONE (09:30)
--- NOTE | 2023-10-08 13:58 | Coding Query ---
MALNUTRITION To promote full compliance with coding requirements relating to patient care, physician participation is requested in all cases of health information coder uncertainty. Please assist us with the question(s) below: Please place an X within the parenthesis (x). If other, please document: "Malnutrition" is documented in this record.- * Patient presents with Sepsis, weakness, Iron deficiency anemia and dehydration. Has a history of malnutrition and Crohns disease with fistula. . History of TPN. If possible, please check the box that provides a more specific diagnosis: ( ) Mild malnutrition (x ) Moderate malnutrition ( ) Severe malnutrition ( ) Protein malnutrition (kwashiorkor) ( ) Severe protein calorie malnutrition ( ) Protein calorie malnutrition, unspecified ( ) Other (please specify): Was this diagnosis present on admission? Please place an X within the parenthesis (x). (x ) Present on admission ( ) Not present on admission ( ) Unable to be clinically determined Thank you NINOSKA Anders [facility]
== END 2023-10-04 14:13 | disposition home or self-care (01) | DRG 872 ==
LOC: ED 09:49 → SUATTDRO 16:45 → EDINP 16:45 → 2N 10-03 15:52

== ENCOUNTER 2023-12-07 13:44 | Inpatient (IN) ==
--- NOTE | 2023-12-07 14:12 | Emergency Department Note ---
History of Present Illness General Chief complaint: Dizziness Stated complaint: DIZZY, LIGHTHEADED, FEELS COLD Time Seen by Provider: 12/07/23 13:52 History of Present Illness This 38-year-old female seen today for evaluation of generalized ill feeling has been present for about a week. She states she feels mildly dizzy when upright. She feels better with laying down. She thinks her blood counts may be off, and says this happens from time to time. She states her body does not make blood cells like normal people. She thinks she may have been sick for more than a week with cold type symptoms, but over the last week believes she has had worsening anemia. She has a history of multiple episodes of anemia requiring admission. She describes feeling as though her ears are clogged when she is upright or ambulatory. It resolves when she lays down. She has no known recent ill contacts. She denies any headache, nausea, vomiting, diarrhea, rhinorrhea, sore throat, shortness of breath, or ear pain. No treatment yet. She feels thirsty, and states she has been drinking a lot. She has a known ilio-colostomy due to resection of Crohn's disease, and a second bag for fistula. She feels she is peeing normally. She had bilateral back pain a few days ago and was concerned she may have a kidney stone or UTI. She denies any current burning, hematuria, or urgency. She has received transfusions in the past, and states she requires special blood from [facility]. Home Medications Medication Instructions Recorded Confirmed Type epinephrine 0.3 mg/0.3 mL 0.3 mg IM Q4H PRN Allergic Reaction 08/26/22 12/07/23 History injection, auto-injector fondaparinux 5 mg/0.4 mL 5 mg subcut .EVERY OTHER DAY 08/04/23 12/07/23 History subcutaneous solution syringe pantoprazole 20 mg tablet,delayed 20 mg PO BID 08/22/23 12/07/23 History release acetaminophen 325 mg tablet 650 mg PO QID PRN Pain 10/02/23 12/07/23 History (Tylenol) buprenorphine HCl 8 mg sublingual 8 mg sublingual BID 10/02/23 12/07/23 History tablet prednisone 20 mg tablet 20 mg PO DAILY #30 tabs 10/04/23 12/07/23 Rx Allergies Allergy/AdvReac Type Severity Reaction Status Date / Time adalimumab [From Humira] Allergy Severe Anaphylaxis Verified 12/07/23 16:07 aspirin Allergy Severe ANAPHYLAXIS Verified 12/07/23 16:07 bee venom protein (honey bee) Allergy Severe Anaphylaxis Verified 12/07/23 16:07 infliximab Allergy Severe ANAPHYLAXIS Verified 12/07/23 16:07 ketorolac [From Toradol] Allergy Severe Swelling Verified 12/07/23 16:07 of Lip/Tongue/Throat NSAIDS (Non-Steroidal Allergy Severe THROAT Verified 12/07/23 16:07 Anti-Inflamma SWELLING Penicillins Allergy Severe Anaphylaxis/FULL Verified 12/07/23 16:07 BODY RASH Sulfa (Sulfonamide Allergy Severe throat Verified 12/07/23 16:07 Antibiotics) swelling azathioprine AdvReac Intermediate MIGRAINE Verified 12/07/23 16:07 Past Med/Surg History Medical History History of DVT (deep vein thrombosis) Crohn's disease of colon with fistula Severe protein-calorie malnutrition Chronic pain Anemia Enterocutaneous fistula Severe anemia Protein calorie malnutrition Small bowel obstruction Endometriosis History of MRSA infection "per records" Rheumatoid arthritis Surgical History History of rectal surgery "hundreds of fistula surgeries" S/P exploratory laparotomy endometriosis H/O resection of large bowel multiple resections and clean outs H/O colectomy "total colectomy with ileoanal anastomosis 03/2006" Family History Other Blood clot in vein Social History Smoking Status: Former smoker Tobacco Type: E-cigarettes / Vaping Second Hand Exposure: No; Hx Alcohol Use: No Hx Substance Use: No Preferred Language: Argentine Communication Ability: Effective Manager Account Management Required: No Beliefs That Will Affect Care: None Current Living Situation: Family Current Living Situation Comment: Lives at home with daughter Other Information That Helps Us Care for You: No Feels Safe at Home: Yes Safety Concerns: Feels Safe At This Time Assistive Devices: Walker and Other Review of Systems A total of 10 systems reviewed and were otherwise negative Physical Exam Vital Signs Vital Signs - 24 hr 12/07/23 13:47 12/07/23 15:24 12/07/23 15:28 Temperature 36.5 C Temperature Source Temporal Artery Scan Pulse Rate 148 H Pulse Rate [Apical] 104 H Respiratory Rate 18 18 Respiratory Effort / Characteristics Non-Labored Respiratory Depth Normal Normal Respiratory Pattern Regular Blood Pressure 90/68 L Blood Pressure [Right Arm] 102/72 Blood Pressure Mean 75 Blood Pressure Mean [Right Arm] 82 Pulse Oximetry 96 99 98 Oxygen Delivery Method Room Air Room Air Room Air Sepsis Recent Fever Within 48 Hours No Sepsis New/Unexplained Change in Mental Status No Sepsis Action Taken by Nursing No Action Required General: Well-developed, cachectic, thin middle-aged female, in no acute distress. Laying on the bed. Alert and oriented. Conversive. Skin: Warm and dry with fair turgor. No rashes. Skin is dry and somewhat scaly. No intra-articular effusions. HEENT: Normocephalic atraumatic. Eyes PERRLA, EOMI. No conjunctiva or scleral injection. Ears TMs intact bilaterally with good light reflexes. No erythema or bulging. No hemotympanum. Canals are patent. Nares patent bilaterally without turbinate enlargement. No significant drainage. No epistaxis. Oropharynx without erythema or exudate. Uvula midline, oral mucosa moist. No lesions present. Few teeth remaining. Heart: Heart tachycardic with regular rhythm. No MGR. Peripheral pulses are 2+. Lungs: Lungs are clear to auscultation. No crackles rhonchi or wheezing. Good air movement. The patient is able to take a deep breath. Abdomen: Abdomen was inspected, auscultated, and palpated. Colostomy bags are present. Bowel sounds present x 4. Hyperactive. Soft, mild diffuse tenderness to palpation. No hepato-splenomegaly. No masses noted. No rebound. Bilateral CVA tenderness. Musculoskeletal: Gross motor function of the upper and lower extremities is intact and unremarkable. Neurologic: Gross sensation is intact across the upper and lower extremities by soft touch. Course Administered Medications Acetaminophen (Acetaminophen 500 Mg Tab) 1,000 mg PO Q8H XENA Stop: 01/07/24 12:59 Last Admin: 12/09/23 12:18 Dose: Not Given Documented By: Admin: 12/09/23 05:07 Dose: Not Given Documented By: Admin: 12/08/23 20:55 Dose: Not Given Documented By: Admin: 12/08/23 12:29 Dose: Not Given Documented By: CAL Al Hydrox/Mg Hydrox/Simethicone (Aluminum/Magnesium Susp 30 Ml Udc) 15 ml PO Q6 XENA Stop: 12/11/23 06:01 Last Admin: 12/09/23 16:48 Dose: 15 ml Documented By: Admin: 12/09/23 11:24 Dose: 15 ml Documented By: KADEN Buprenorphine HCl (Buprenorphine Hcl 8 Mg Subl) 8 mg SL BID XENA Stop: 01/06/24 20:59 Last Admin: 12/09/23 09:01 Dose: 8 mg Documented By: Admin: 12/08/23 20:53 Dose: 8 mg Documented By: Admin: 12/08/23 08:51 Dose: 8 mg Documented By: CAL Co-signed By: KADEN Admin: 12/07/23 20:54 Dose: 8 mg Documented By: RUSSELL Heparin Sodium (Porcine) (Heparin Sod 5,000 Unit/0.5 Ml Vial) 5,000 units SQ Q12 XENA Stop: 01/06/24 20:59 Last Admin: 12/09/23 08:59 Dose: Not Given Documented By: Admin: 12/08/23 19:30 Dose: Not Given Documented By: Admin: 12/08/23 08:44 Dose: Not Given Documented By: Admin: 12/07/23 20:54 Dose: 5,000 units Documented By: RUSSELL Pantoprazole Sodium (Pantoprazole 40 Mg Tab) 40 mg PO BID XENA Stop: 01/06/24 20:59 Last Admin: 12/09/23 08:59 Dose: 40 mg Documented By: Admin: 12/08/23 20:54 Dose: 40 mg Documented By: Admin: 12/08/23 08:41 Dose: 40 mg Documented By: CAL Co-signed By: KADEN Admin: 12/07/23 20:44 Dose: 40 mg Documented By: RUSSELL Prednisone (Prednisone 20 Mg Tab) 20 mg PO DAILY XENA Stop: 01/07/24 08:59 Last Admin: 12/09/23 08:59 Dose: 20 mg Documented By: Admin: 12/08/23 08:40 Dose: 20 mg Documented By: CAL Co-signed By: KADEN Discontinued Medications Sodium Chloride (Nss) 1,000 mls @ 999 mls/hr IV .Q1H1M ONE Stop: 12/07/23 15:26 Last Infusion: 12/07/23 15:54 Dose: Infused Documented By: Admin: 12/07/23 14:38 Dose: 999 mls/hr Documented By: NATA Sodium Chloride (Nss) 1,000 mls @ 125 mls/hr IV .Q8H [facility] Stop: 01/06/24 15:59 Last Infusion: 12/07/23 18:56 Dose: Infused Documented By: Admin: 12/07/23 18:38 Dose: 125 mls/hr Documented By: KADEN Magnesium Sulfate/Dextrose (Magnesium Sulfate / D5w) 1 gm in 100 mls @ 50 mls/hr IV ONE ONE Stop: 12/07/23 18:58 Last Infusion: 12/07/23 20:40 Dose: Infused Documented By: Admin: 12/07/23 18:40 Dose: 50 mls/hr Documented By: KADEN Lactated Ringer's (Lr) 1,000 mls @ 150 mls/hr IV .Q6H40M [facility] Stop: 01/07/24 12:14 Last Admin: 12/09/23 16:49 Dose: Not Given Documented By: Infusion: 12/09/23 16:15 Dose: Infused Documented By: Admin: 12/09/23 09:01 Dose: 150 mls/hr Documented By: Infusion: 12/09/23 08:47 Dose: Infused Documented By: Admin: 12/09/23 02:06 Dose: 150 mls/hr Documented By: Infusion: 12/09/23 02:06 Dose: Infused Documented By: Admin: 12/08/23 19:29 Dose: 150 mls/hr Documented By: Infusion: 12/08/23 19:29 Dose: Infused Documented By: Admin: 12/08/23 12:28 Dose: 150 mls/hr Documented By: CAL Co-signed By: KADEN Medical Decision Making Differential Diagnosis Dehydration, electrolyte abnormality, acute renal failure, anemia, viral illness, sepsis Medical Records Attestation: I reviewed the patient's medical records. Home Medications Current Medication List: was personally reviewed by me Laboratory Data CBC, chemistry panel, and type and screen were obtained. CBC shows a normal white count with low H&H of 7.6 and 27.9. This is lower than her typical baseline. MCV and MCH are also low. Platelets are normal. She has some teardrop cells with microcytosis. Chemistry panel has sodium 135, potassium 4.2, chloride 98, CO2 24. Anion gap mildly elevated at 13. BUN of 22 with creatinine 3.19. This is significantly higher than her baseline. LFTs are unremarkable. Lipase of 29. TSH normal at 1.999. Blood type is B positive antibody screen is negative. Iron panel was also ordered. 12/09/23 06:03 12/09/23 06:03 Lab Results 12/07/23 Range/Units 14:11 WBC 7.46 (4.8-10.8) K/ul RBC 3.84 L (4.20-5.40) M/uL Hgb 7.6 L (12.0-16.0) g/dl Hct 27.9 L (37.0-47.0) % MCV 72.7 L (80.0-100.0) fL MCH 19.8 L (25.0-34.0) pg MCHC 27.2 L (32.0-36.0) g/dL RDW Std Deviation 47.6 H (36.4-46.3) fL RDW Coeff of [place] 18.1 H (11.5-14.5) % Plt Count 343 (130-400) K/uL MPV 9.1 L (9.4-12.4) fL Immature Gran % (Auto) 0.4 % Neut % (Auto) 79.4 % Lymph % (Auto) 11.5 % [place] % (Auto) 7.8 % Eos % (Auto) 0.8 % Baso % (Auto) 0.1 % Neut # (Auto) 5.92 (1.40-6.50) K/uL Lymph # (Auto) 0.86 L (1.20-3.40) K/uL [place] # (Auto) 0.58 (0.11-0.59) K/uL Eos # (Auto) 0.06 (0.00-0.50) K/uL Baso # (Auto) 0.01 (0.00-0.20) K/uL Immature Gran # (Auto) 0.03 (0.01-0.20) K/uL Hypochromasia Present Microcytosis Present Tear Drop Cells 1+ Sodium 135 L (136-145) mmol/L Potassium 4.2 (3.5-5.1) mmol/L Chloride 98 (98-107) mmol/L Carbon Dioxide 24 (21-32) mmol/L Anion Gap 13 H (3-11) BUN 22 (6-23) mg/dl Creatinine 3.19 H (0.6-1.2) mg/dl Est Cr Clr Drug Dosing 17.6 ml/min Est GFR ( Amer) 20.1 ml/min Est GFR (Non-Af Amer) 17.3 ml/min BUN/Creatinine Ratio 6.9 L (10-20) Glucose 103 H (70-99(Fasting)) mg/dl Calcium 9.8 (8.6-10.3) mg/dl Magnesium 1.7 (1.7-2.4) mg/dl Iron 15 L (35-150) mcg/dl TIBC 298 (250-450) mcg/dl Unsaturated IBC 283 (155-355) mcg/dl Transferrin % Sat 5 L (15-50) % Ferritin 45.9 (8-388) ng/ml Total Bilirubin 0.3 (0.2-1.0) mg/dl AST 8 L (13-39) U/L ALT 16 (7-52) U/L Alkaline Phosphatase 88 (34-104) U/L Total Protein 7.3 (6.0-8.3) gm/dl Albumin 3.6 (3.4-5.0) gm/dl Globulin 3.7 (2.5-4.0) gm/dl Albumin/Globulin Ratio 1.0 (0.9-2) Lipase 29 (11-82) U/L TSH 1.999 (0.300-4.500) uIu/ml Blood Type B Positive Antibody Screen NEGATIVE Crossmatch See Detail ECG Data Additional Comments: EKG obtained today shows a sinus tachycardia with a rate of 129. No acute ST or T wave changes are present. This was reviewed with Dr. Beaver. Blood Pressure Blood Pressure Findings: Normal blood pressure Blood Pressure Disposition: did not require urgent referral MDM Narrative The patient was evaluated in room B9. Conservative care measures were discussed. IV was established. Labs were obtained. EKG was also obtained. EKG showed tachycardia. The patient was placed on a buttonhole maker and remained in a sinus tachycardia during her ED evaluation. She had no episodes of ectopy. Labs are consistent with acute kidney injury as well as iron deficiency anemia. She was hydrated with 1 L normal sterile saline IV bolus. She was then given a second liter at 125 mL/h. She did not require any medication for pain or nausea. The patient verbalized feeling better after her first liter. Concern for further dilution and a drop in her H&H was considered. Blood type and screen was obtained in anticipation of transfusion. She remained stable while in the ED. Given her lab abnormalities, admission was recommended. Through shared decision-making with the patient, the hospitalist service was consulted for admission. Please see that dictation for final management. The patient remained stable while in the ED. Care plan was discussed with Dr. Beaver. Impression & Plan ARIANNE (acute kidney injury), Iron deficiency anemia The patient will require admission. Case was discussed with Dr. Beaver. Hospitalist service was contacted and I spoke with Dr. Marquez regarding admission. Please see his dictation for final management. Discharge Plan Visit Data Chief Complaint: Dizziness Stated Complaint: DIZZY, LIGHTHEADED, FEELS COLD ED Provider: Sebastien Salmon ED Midlevel Provider: Jerry Garcia Discharge Problem: ARIANNE (acute kidney injury), Iron deficiency anemia Patient Disposition: Admitted As Inpatient Discharge Instructions Interventions: ED Discharge Assessment Last Done: 12/07/23 17:34
[2023-12-07] MEDS: SODIUM CHLORIDE 0.9% 1,000 ML IV ONE (14:38)
[2023-12-07 14:47] LABS: Albumin Level 3.6 gm/dl (3.4-5.0); BUN Creatinine Ratio 6.9 (10-20); Bilirubin,Total 0.3 mg/dl (0.2-1.0); Calcium 9.8 mg/dl (8.6-10.3); Creatinine Clr Calc Pharmacy 17.6 ml/min; Est GFR (African American) 20.1 ml/min; Est GFR (Non-African American) 17.3 ml/min; Globulin 3.7 gm/dl (2.5-4.0); Magnesium 1.7 mg/dl (1.7-2.4); Potassium 4.2 mmol/L (3.5-5.1); Total Protein 7.3 gm/dl (6.0-8.3)
[2023-12-07 15:01] LABS: Basophils # (auto) 0.01 K/uL (0.00-0.20); Basophils % (auto) 0.1 %; Eosinophils # (auto) 0.06 K/uL (0.00-0.50); Eosinophils % (auto) 0.8 %; Hematocrit (blood only) 27.9 % (37.0-47.0); Hemoglobin 7.6 g/dl (12.0-16.0); Hypochromasia Present; Immature Granulocytes # (auto) 0.03 K/uL (0.01-0.20); Immature Granulocytes % (auto) 0.4 %; Lymphocytes # (auto) 0.86 K/uL (1.20-3.40); Lymphocytes % (auto) 11.5 %; Mean Corpuscular Hemoglobin 19.8 pg (25.0-34.0); Mean Corpuscular Hgb Conc 27.2 g/dL (32.0-36.0); Mean Corpuscular Volume 72.7 fL (80.0-100.0); Mean Platelet Volume 9.1 fL (9.4-12.4); Microcytosis Present; Monocytes # (auto) 0.58 K/uL (0.11-0.59); Monocytes % (auto) 7.8 %; Neutrophils # (auto) 5.92 K/uL (1.40-6.50); Neutrophils % (auto) 79.4 %; Platelet Count 343 K/uL (130-400); RDW Coefficient of Variation 18.1 % (11.5-14.5); RDW Standard Deviation 47.6 fL (36.4-46.3); Red Blood Count 3.84 M/uL (4.20-5.40); Tear Drop Cells 1+; Thyroid Stimulating Hormone 1.999 uIu/ml (0.300-4.500); White Blood Count 7.46 K/ul (4.8-10.8)
--- NOTE | 2023-12-07 15:53 | History & Physical Report ---
Date of Service December 07, 2023 Assessment & Plan (1) Iron deficiency anemia: Plan: Dizziness, fatigue, and chills x 1 week Hgb 7.6 and HCT 47.9 on arrival Trend H&H MCV 72.7 on arrival Iron low at 15 Trends ferritin saturation low at 5% TBIC, unsaturated IBC, and ferritin levels WNL Dizziness is likely secondary to her chronic JARET Hx of blood transfusions at [facility] Hx of Venofer reactions (hives, burning rash, throat swelling -even with pretreatment such as Benadryl/steroids) She follows with drilling fluids specialist at [facility], and is trying to see someone specialist in [place] as well She is unsure if she has had for Ferrlecit infusion in the past, but has been told to avoid all parenteral iron by specialists P.o. iron does not absorb, and she has stopped taking supplements Blood consent obtained 2u pRBCs ordered in advance; due to her special antibodies, they usually need to come from [place] 1u to be transfused upon arrival (repeat Hgb 6.6) No signs of active bleeding at this time Hematology consulted And CBC, BMP, mag (2) ARIANNE (acute kidney injury): Plan: BUN 22, creatinine 3.99 (baseline 0.69), and EGFR 17.[address] A/P revealed no obstruction ?Secondary to hypoperfusion UA ordered, pending Mild anion gap elevation at 13 Avoid nephrotoxic agents Continue IV fluid resuscitation (3) Severe protein-calorie malnutrition: Plan: Cachectic, low BMI Boost supplementation with diet Dietitian consulted (4) History of DVT (deep vein thrombosis): Plan: Patient takes Fondaparinex injections every other day at home Hold Fondaparienx injections while inpatient given CrCl<30 Heparin 5000u SQ q12h (5) Crohn's disease of colon with fistula: Plan: Continue prednisone Plan Disposition: Admit to PCU telemetry Full code Regular diet (boost/protein supplementation) DVT PPx: HOLD home Fondaparinex, which is contraindicated for CrCl<30; Heparin 5000u SQ q12h History of Present Illness Chief Complaint: Dizziness Primary Care Provider: SARAY Pascal Elsie is a 38-year-old female with PMH of iron deficiency anemia, endometriosis, Crohn's disease, ileostomy status, microcytic anemia, FTT, and sepsis. She presented for dizziness, fatigue, and chills x 1 week. She reports that she been sick or for longer than 1 week; originally she thought that she had the flu. However, within the past week she has had symptoms similar to past episodes of symptomatic anemia (fatigue, dizziness, chills). She has had blood transfusions in the past, which required extra time to arrive due to a special antibody. She is on Fondaparinex at home for a blood clot in her leg that was discovered in April 2023. She has had intermittent fevers at home over the past week, with the highest being 103 F (for which she takes Tylenol 1 tablet when needed). History of a recent kidney stone 1 month ago; this was the first occurrence. She has been taking cranberry pills/Azo for the last 3 days and feeling lots of water. She reports she has had recurrent UTIs in the past. She also notes left-sided flank pain and back pain x 1 week. She has not had her menstrual period in the past 3-4 years due to her endometriosis; mass on her left ovary. She took all of her regular morning medications today. She is mildly tachycardic at 102 bpm at time of admission; vitals otherwise stable. ED course: NSS 1000 mL IV x 2 ROS: Patient endorses fever, chills, nightsweats, body ache, headaches, visual disturbance (spots in eyes, blurry; with fever), light sensitivity, sore throat, sinus congestion, chest palpitations (intermittent; every few days; lasts for minutes - hours), back pain (chronic), left sided flank pain, and cold intolerance in legs. Patient denies lightheadedness, loss of vision, diplopia, cough, chest pain, SOB, abdominal pain, N/V/D, dysuria, blood in the urine/stool, burning with urination, urinary retention, saddle anesthesia, or numbness/tingling in the legs. Allergies Allergy/AdvReac Type Severity Reaction Status Date / Time adalimumab [From Humira] Allergy Severe Anaphylaxis Verified 12/07/23 16:07 aspirin Allergy Severe ANAPHYLAXIS Verified 12/07/23 16:07 bee venom protein (honey bee) Allergy Severe Anaphylaxis Verified 12/07/23 16:07 infliximab Allergy Severe ANAPHYLAXIS Verified 12/07/23 16:07 ketorolac [From Toradol] Allergy Severe Swelling Verified 12/07/23 16:07 of Lip/Tongue/Throat NSAIDS (Non-Steroidal Allergy Severe THROAT Verified 12/07/23 16:07 Anti-Inflamma SWELLING Penicillins Allergy Severe Anaphylaxis/FULL Verified 12/07/23 16:07 BODY RASH Sulfa (Sulfonamide Allergy Severe throat Verified 12/07/23 16:07 Antibiotics) swelling azathioprine AdvReac Intermediate MIGRAINE Verified 12/07/23 16:07 Home Medications Medication Instructions Recorded Confirmed Type epinephrine 0.3 mg/0.3 mL 0.3 mg IM Q4H PRN Allergic Reaction 08/26/22 12/07/23 History injection, auto-injector fondaparinux 5 mg/0.4 mL 5 mg subcut .EVERY OTHER DAY 08/04/23 12/07/23 History subcutaneous solution syringe pantoprazole 20 mg tablet,delayed 20 mg PO BID 08/22/23 12/07/23 History release acetaminophen 325 mg tablet 650 mg PO QID PRN Pain 10/02/23 12/07/23 History (Tylenol) buprenorphine HCl 8 mg sublingual 8 mg sublingual BID 10/02/23 12/07/23 History tablet prednisone 20 mg tablet 20 mg PO DAILY #30 tabs 10/04/23 12/07/23 Rx Past Med/Surg History Medical History (Updated 12/07/23 @ 17:05 by Kiran Cunningham PA-C) History of DVT (deep vein thrombosis) Crohn's disease of colon with fistula Severe protein-calorie malnutrition Chronic pain Anemia Enterocutaneous fistula Severe anemia Protein calorie malnutrition Small bowel obstruction Endometriosis History of MRSA infection "per records" Rheumatoid arthritis Surgical History History of rectal surgery "hundreds of fistula surgeries" S/P exploratory laparotomy endometriosis H/O resection of large bowel multiple resections and clean outs H/O colectomy "total colectomy with ileoanal anastomosis 03/2006" Family History Other Blood clot in vein Social History Smoking Status: Former smoker Tobacco Type: E-cigarettes / Vaping Second Hand Exposure: No; Hx Alcohol Use: No Hx Substance Use: No Preferred Language: [place] Communication Ability: Effective Legal Research Analyst Required: No Beliefs That Will Affect Care: None Current Living Situation: Family Current Living Situation Comment: Lives at home with daughter Other Information That Helps Us Care for You: No Feels Safe at Home: Yes Safety Concerns: Feels Safe At This Time Assistive Devices: None Review of Systems Review of Systems: See HPI above Physical Exam Physical Exam: General: no acute distress; lethargic; pale; non-toxic appearing; frail; cachectic; cooperative; SpO2 98% on RA HEENT: normocephalic, atraumatic; no scleral icterus; PERRLA w/ EOMs intact; moist mucus membrane; vision and hearing grossly intact Neck: supple; no JVD; no lymphadenopathy; trachea midline Skin: warm, dry without signs of tenting; no cyanosis; no rashes, bruising, lesions, or erythema noted CV: chest wall NTP; RR, tachycardic in the 100-110 bpm range; S1/S2 normal; no murmurs/rubs/gallops; pulses intact and symmetric at radial, DP, and PT Lungs: no acute respiratory distress; symmetrical chest wall expansion; clear breath sounds across all lung maldonado w/o adventitious sounds; no wheezing ABD: Ostomy status; soft, NTP; BS present; no rebound/guarding; no ascites; no distention; positive for left flank TTP; positive for bilateral CVA tenderness; no rashes, bruising, or signs of active bleeding MSK: no tics or fasciculations; no edema noted in the LEs b/l, nonerythematous Neuro: A&Ox3; normal mood and affect; fluent speech; no focal deficits; sensation grossly intact in the LEs b/l Results & Data Results & Data Vital Signs (Past 12 Hours) Vital Signs Temp Pulse Pulse Resp BP BP Pulse Ox 12/07/23 15:28 98 12/07/23 15:24 104 H 18 102/72 99 12/07/23 13:47 36.5 C 148 H 18 90/68 L 96 O2 Del Method 12/07/23 15:28 Room Air 12/07/23 15:24 Room Air 12/07/23 13:47 Room Air Laboratory Results Abnormal lab results 12/07/23 Range/Units 14:11 RBC 3.84 L (4.20-5.40) M/uL Hgb 7.6 L (12.0-16.0) g/dl Hct 27.9 L (37.0-47.0) % MCV 72.7 L (80.0-100.0) fL MCH 19.8 L (25.0-34.0) pg MCHC 27.2 L (32.0-36.0) g/dL RDW Std Deviation 47.6 H (36.4-46.3) fL RDW Coeff of [place]oc 18.1 H (11.5-14.5) % MPV 9.1 L (9.4-12.4) fL Lymph # (Auto) 0.86 L (1.20-3.40) K/uL Sodium 135 L (136-145) mmol/L Anion Gap 13 H (3-11) Creatinine 3.19 H (0.6-1.2) mg/dl BUN/Creatinine Ratio 6.9 L (10-20) Glucose 103 H (70-99(Fasting)) mg/dl Iron 15 L (35-150) mcg/dl Transferrin % Sat 5 L (15-50) % AST 8 L (13-39) U/L Diagnostic Findings Abdomen/Pelvis CT 12/07/23 16:[address] WITHOUT CONTRAST CT DOSE: 521.25 mGy.cm HISTORY: Acute left-sided flank pain with acute kidney injury . Prior subtotal colectomy with right lower quadrant ileostomy and rectal pouch. ARIANNE, left- flank/back pain, hx of nephrolithiasis TECHNIQUE: Multiaxial CT images of the abdomen and pelvis were performed without contrast. A dose lowering technique was utilized adhering to the principles of ALARA. COMPARISON STUDY: 10/16/2023 FINDINGS: Decreased attenuation of the cardiac blood pool suggestive of anemia. No acute lower thoracic abnormality. No pneumoperitoneum. The unenhanced spleen is mildly enlarged at 14.7 cm. Unremarkable pancreas, contracted gallbladder, and adrenal glands. The liver is within normal limits. No renal or ureteral calculi or hydronephrosis. There is minimal bilateral perinephric stranding. Unremarkable urinary bladder. A complex cystic lesion is again seen in the left adnexum measuring approximately 7.5 x 4.0 cm as seen on image #252-containing and associated mural nodule. Aorta and IVC are unremarkable. There is no new or progressive lymphadenopathy. Unchanged borderline enlarged left inguinal chain lymph node on image 268.a There is postoperative change from a subtotal colectomy with a rectal pouch formation and right lower quadrant ileostomy. No bowel obstruction is seen. Mildly thick-walled loops of bowel in the left pelvis appear generally stable. A complex enterocutaneous fistula is again seen in the region of the umbilicus. Again seen are bilateral perianal fistulas as well as a left perirectal fistula. The perirectal fistula extends to the dermal surface. Fluid and surrounding inflammation is generally unchanged. There is no intraperitoneal free air or abdominal ascites. A tiny pocket of gas and fluid within the left abdominal wall near the enterocutaneous fistula seen on image 188 has increased in size from 10/16/2023 measuring 2.2 cm. Additionally, infiltration with air within the left abdominal wall on image 195 series 3 is new/progressed. No acute osseous abn ormality. IMPRESSION: 1. No renal or ureteral calculi or hydronephrosis. 2. Prior subtotal colectomy with right lower quadrant ileostomy and rectal pouch formation. 3. Complex enterocutaneous fistulas are again noted with increased size of the left abdominal wall air and fluid filled collections. No drainable fluid collection identified by CT. 4. Bilateral perianal fistulas with left perirectal fistula redemonstrated. 5. Complex left adnexal lesion redemonstrated. 6. Additional findings as above. ACT 112: Negative or not required by law. The above report was generated using voice recognition software. It may contain grammatical, syntax or spelling errors. Electronically signed by: Renny Colon M.D. 12/07/2023 5:28 PM Code Status & VTE Plan Code Status Full code VTE Prophylaxis Plan VTE Prophylaxis will be ordered: Yes Supervising Physician Co-Signing Physician Notes Patient seen and examined, chart reviewed, case discussed with LISA Ribera and I agree with the assessment and plan as above except as otherwise noted Labs and images reviewed The brain is a 38-year-old female with history of iron deficiency anemia intolerant to parenteral iron formulations with multiple anaphylactic reactions to Venofer, severe iron deficiency, Crohn's, ileostomy, and malnutrition who presents for fatigue/dizziness/chills and fatigue. She is volume contracted with an ARIANNE and anemic with a hemoglobin of 7.6 on admission. No active bleeding. Iron studies obtained and she is severely iron deficient and microcytic at 72.7. Unfortunately she is not able to tolerate IV iron with multiple anaphylactic reactions despite pretreatment; however oral iron is also with extremely poor absorption and she is further limited with history of inflammatory bowel disease and ileostomy. Patient is a complicated crossmatch, 2 units of blood has been crossmatched and will likely be required to be transported from [facility]. Repeat hemoglobin is pending she is likely to have a dilutional drop after fluid rehydration. Will continue to monitor for symptoms. She is mildly tachycardic but not hypotensive. Mentating normally.Ct shows is without acute findings,no signs of obstructive kidney disease, perirectal/perianal fisultas redomonstrated, complex enterocutaneous fitulas redemonstrated without drainable fluid collection. Hematology oncology con sulted for assistance with anemia and? Whether alternative IV iron formulations may be more tolerable to her it is unclear if she has ever tried for Ferlicet or other formulations. Recommend transfusing 1 unit at this time for symptomatic anemia with signs of decreased perfusion(elevated cr/hypotension) and continuing to trend BMP/hemoglobin and following clinically for signs of bleeding. Ailey parinux held for creatinine clearance. otherwise agree with assessment and management above PG Care Time/CCT Total # of Minutes Spent Total Time Spent with Patient: Total time spent is greater than 50% in coordination of care (as documented) at patient's floor/unit and/or counseling patient: Coding [place] [address] INT INP/OBS CARE 3/75MIN Patient Type Established Medical Decision Making High Complexity Diagnoses Iron deficiency anemia D50.9 ARIANNE (acute kidney injury) N17.9 Severe protein-calorie malnutrition E43 History of DVT (deep vein thrombosis) Z86.718 Crohn's disease of colon with fistula K50.113
[2023-12-07 16:37] LABS: Ferritin 45.9 ng/ml (8-388)
[2023-12-07] MEDS ORDERED: SODIUM CHLORIDE 0.9% 250 ML IV PRN ×2 (16:47→22:02)
[2023-12-07 17:25] LABS: Appearance Urine Clear (Clear); Bacteria Urine Automated Negative (Negative); Bilirubin Urine Negative (Negative); Blood Urine 1+ (Negative); Color Urine Yellow; Epithelial Cell Urine Auto >30 /lpf (0-5); Glucose Urine UA Negative (Negative); Ketones Urine Negative (Negative); Leukocyte Esterase Urine 2+ (Negative); Nitrite Urine Negative (Negative); Protein Urine Negative (Negative); RBC Urine Automated 0-4 /hpf (0-4); Specific Gravity Urine 1.006 (1.000-1.030); Urobilinogen Urine Negative (Negative); WBC Urine Automated >30 /hpf (0-5)
--- NOTE | 2023-12-07 17:31 | CT Scan Report ---
ABDOMEN AND PELVIS CT WITHOUT CONTRAST CT DOSE: 521.25 mGy.cm HISTORY: Acute left-sided flank pain with acute kidney injury . Prior subtotal colectomy with right l ower quadrant ileostomy and rectal pouch. ARIANNE, left-flank/back pain, hx of nephrolithiasis TECHNIQUE: Multiaxial CT images of the abdomen and pelvis were performed without contrast. A dose lo wering technique was utilized adhering to the principles of ALARA. COMPARISON STUDY: 10/16/2023 FINDINGS: Decreased attenuation of the cardiac blood pool suggestive of anemia. No acute lower thorac ic abnormality. No pneumoperitoneum. The unenhanced spleen is mildly enlarged at 14.7 cm. Unremarkabl e pancreas, contracted gallbladder, and adrenal glands. The liver is within normal limits. No renal o r ureteral calculi or hydronephrosis. There is minimal bilateral perinephric stranding. Unremarkable urinary bladder. A complex cystic lesion is again seen in the left adnexum measuring approximately 7. 5 x 4.0 cm as seen on image #252-containing and associated mural nodule. Aorta and IVC are unremarkab le. There is no new or progressive lymphadenopathy. Unchanged borderline enlarged left inguinal chain lymph node on image 268.a There is postoperative change from a subtotal colectomy with a rectal pouch formation and right lower quadrant ileostomy. No bowel obstruction is seen. Mildly thick-walled loops of bowel in the left pel vis appear generally stable. A complex enterocutaneous fistula is again seen in the region of the umb ilicus. Again seen are bilateral perianal fistulas as well as a left perirectal fistula. The perirect al fistula extends to the dermal surface. Fluid and surrounding inflammation is generally unchanged. There is no intraperitoneal free air or abdominal ascites. A tiny pocket of gas and fluid within the left abdominal wall near the enterocutaneous fistula seen on image 188 has increased in size from measuring 2.2 cm. Additionally, infiltration with air within the left abdominal wall on image 195 series 3 is new/progressed. No acute osseous abnormality. IMPRESSION: 1. No renal or ureteral calculi or hydronephrosis. 2. Prior subtotal colectomy with right lower quadrant ileostomy and rectal pouch formation. 3. Complex enterocutaneous fistulas are again noted with increased size of the left abdominal wall ai r and fluid filled collections. No drainable fluid collection identified by CT. 4. Bilateral perianal fistulas with left perirectal fistula redemonstrated. 5. Complex left adnexal lesion redemonstrated. 6. Additional findings as above. ACT 112: Negative or not required by law. The above report was generated using voice recognition software. It may contain grammatical, syntax o r spelling errors. Electronically signed by: Renny Colon M.D. 12/07/2023 5:28 PM
[2023-12-07 17:44] LABS: Hematocrit (blood only) 27.5 % (37.0-47.0); Hemoglobin 7.6 g/dl (12.0-16.0)
[2023-12-07] MEDS ORDERED: ACETAMINOPHEN 325 MG TAB PO PRN (18:36)
[2023-12-07] MEDS ORDERED: ONDANSETRON INJ 2 MG/ML 2 ML VIAL IV PRN (18:36)
[2023-12-07] MEDS ORDERED: EPINEPHrine INJ 1 MG/ML AMP IM PRN (18:36)
[2023-12-07] MEDS: SODIUM CHLORIDE 0.9% 1,000 ML IV SCH (18:38)
[2023-12-07] MEDS: MAGNESIUM SULFATE / D5W 1 GM/100 ML BAG IV ONE (18:40)
[2023-12-07] MEDS: PANTOprazole 40 MG TAB PO SCH (20:44)
[2023-12-07] MEDS: HEPARIN SOD 5,000 UNIT/0.5 ML VIAL SQ SCH (20:54)
[2023-12-07] MEDS: buprenorphine HCL 8 MG SUBL SL SCH (20:54)
[2023-12-07] MEDS ORDERED: PANTOprazole 40 MG TAB PO SCH (21:00)
[2023-12-07 21:58] LABS: Hematocrit (blood only) 23.5 % (37.0-47.0); Hemoglobin 6.6 g/dl (12.0-16.0)
--- NOTE | 2023-12-07 22:21 | Electrocardiogram Report ---
Test Reason : Blood Pressure : / mmHG Vent. Rate : 129 BPM Atrial Rate : 129 BPM P-R Int : 156 ms QRS Dur : 060 ms QT Int : 290 ms P-R-T Axes : 072 015 074 degrees QTc Int : 424 ms Sinus tachycardia Possible Left atrial enlargement Septal infarct (cited on or before 07-DEC-2023) Nonspecific T wave abnormality Abnormal ECG When compared with ECG of 16-OCT-2023 07:58, Vent. rate has increased BY 54 BPM Nonspecific T wave abnormality now evident in Inferior leads T wave inversion now evident in Lateral leads Confirmed by Beltran Aragon ([id number]) on 12/07/2023 10:20:41 PM Referred By: REFERRED SELF Confirmed By:Beltran Aragon
[2023-12-08 01:09] LABS: Hematocrit (blood only) 22.2 % (37.0-47.0); Hemoglobin 6.2 g/dl (12.0-16.0)
[2023-12-08] MEDS ORDERED: SODIUM CHLORIDE 0.9% 250 ML IV PRN (02:08)
[2023-12-08 07:24] LABS: Basophils # (auto) 0.01 K/uL (0.00-0.20); Basophils % (auto) 0.2 %; Eosinophils # (auto) 0.09 K/uL (0.00-0.50); Eosinophils % (auto) 1.7 %; Hematocrit (blood only) 30.3 % (37.0-47.0); Hemoglobin 8.9 g/dl (12.0-16.0); Immature Granulocytes # (auto) 0.04 K/uL (0.01-0.20); Immature Granulocytes % (auto) 0.8 %; Lymphocytes # (auto) 1.13 K/uL (1.20-3.40); Lymphocytes % (auto) 21.2 %; Mean Corpuscular Hemoglobin 22.4 pg (25.0-34.0); Mean Corpuscular Hgb Conc 29.4 g/dL (32.0-36.0); Mean Corpuscular Volume 76.1 fL (80.0-100.0); Mean Platelet Volume 9.1 fL (9.4-12.4); Monocytes # (auto) 0.48 K/uL (0.11-0.59); Neutrophils # (auto) 3.57 K/uL (1.40-6.50); Neutrophils % (auto) 67.1 %; Platelet Count 277 K/uL (130-400); RDW Coefficient of Variation 18.1 % (11.5-14.5); Red Blood Count 3.98 M/uL (4.20-5.40); White Blood Count 5.32 K/ul (4.8-10.8)
[2023-12-08 07:39] LABS: BUN Creatinine Ratio 7.1 (10-20); Calcium 8.8 mg/dl (8.6-10.3); Creatinine Clr Calc Pharmacy 19.6 ml/min; Est GFR (African American) 24.9 ml/min; Est GFR (Non-African American) 21.5 ml/min; Potassium 4.3 mmol/L (3.5-5.1)
[2023-12-08] MEDS: predniSONE 20 MG TAB PO SCH (08:40)
[2023-12-08] MEDS ORDERED: FONDAPARINUX 5 MG/0.4 ML SQ SCH ×2 (09:00)
--- NOTE | 2023-12-08 11:54 | Hospitalist Progress Note ---
Date of Service December 08, 2023 Assessment & Plan (1) Iron deficiency anemia: Plan: -Severe symptomatic microcytic anemia Hgb 7.6 on admission, MCV 73, iron 15 -Noted history of poor absorption of PO iron supplementation and seemingly anaphylaxis to Venofer + pretreatment with Benadryl/steroids -CTAP does not suggest any acute bleeding sources -Hgb downtrend to 6.2 overnight, improved to 8.9 s/p 2u pRBC -Low suspicion for active bleeding at present. Currently hemodynamically stable -Hematology consulted, awaiting recommendations -Monitor CBC (2) ARIANNE (acute kidney injury): Plan: -Cr 3.99 on admission -Likely pre-renal source from intravascular depletion -Cr improved to 3.2 with fluid repletion -Continue IVF for now -Monitor BMP (3) Severe protein-calorie malnutrition: Plan: -Cachectic, low BMI -Boost supplementation with diet -Dietitian consulted, awaiting recommendations (4) History of DVT (deep vein thrombosis): Plan: -Patient takes Fondaparinex injections every other day at home -Hold Fondaparienx injections while inpatient given CrCl<30 -Heparin 5000u SQ q12h (5) Crohn's disease of colon with fistula: Plan: -Continue prednisone (6) Back pain: Plan: -Likely biomechanical source given exam -CTAP does not suggest kidney stone or pyelonephritis -Supportive care- heating pad ordered, scheduled Tylenol, pt would like to avoid muscle relaxer given side effect intolerance in past -Continue to monitor (7) Adnexal cyst: Plan: -CTAP noting complex L 7.5 x 4.0 cm adnexal cyst -Outpatient f/u Plan Disposition: PCU Full code Regular diet (boost/protein supplementation) DVT PPx: Hold home Fondaparinex, which is contraindicated for CrCl<30; Heparin 5000u SQ q12h Admission and Anticipated Discharge Date Admission Date: December 07, 2023 Supervising Physician Co-Signing Physician Notes I personally examined the patient and verified all silverio points of history and exam, discussed case, and agree with decision making with Dr Fall feeling better less weak less dizzy. notes that she's really needed transfusion about once a month for the last many many months vitals noted nad heent nc at mmm breathing unlabored no accessory muscles good effort skin no rashes no pallor or icterus neuro no focal deficits anemia - multifactorial but crohn's really drives the factors. more stable post transfusion ARF - due to above - improved some but still not at baseline -> IVF and follow await hematology input otherwise as above Subjective Acute events overnight- none. Pt examined at bedside. Seen shortly after completion of 2u pRBC. Pt reports lower back pain greater on L side than R. Denies dyspnea, chest pain, lightheadedness or other acute complaints. Review of Systems Review of Systems: Per HPI/Subjective Physical Exam Physical Exam: General: no acute distress, tired, cachectic HEENT: normocephalic, atraumatic; no scleral icterus, moist mucus membrane; vision and hearing grossly intact Neck: supple, trachea midline Skin: warm, dry without signs of tenting; no cyanosis; no rashes, bruising, lesions, or erythema noted CV: Regular rate and rhythm, S1/S2 normal; no murmurs/rubs/gallops Lungs: no acute respiratory distress; symmetrical chest wall expansion; clear breath sounds across all lung maldonado w/o adventitious sounds; no wheezing Abd: Ostomy status; soft, nontender, no rebound/guarding; no ascites; no distention MSK: tight lower paraspinal musculature L > R Neuro: normal mood and affect; fluent speech Results & Data Results & Data Vital Signs (Past 12 Hours) Vital Signs Temp Pulse Pulse Resp BP BP Pulse Ox 12/08/23 08:07 36.8 C 81 18 92/61 L 97 12/08/23 07:35 79 12/08/23 05:15 36.8 C 83 16 104/67 98 12/08/23 04:15 36.8 C 80 16 92/63 L 100 12/08/23 03:45 36.8 C 80 18 89/62 L 100 12/08/23 03:30 36.9 C 79 16 96/63 L 100 12/08/23 03:13 36.8 C 90 16 95/64 L 100 12/08/23 03:00 37.0 C 93 H 13 94/62 L 98 12/08/23 02:31 36.7 C 90 16 95/64 L 100 12/08/23 02:01 36.6 C 86 16 93/65 L 100 12/08/23 01:46 36.8 C 92 H 18 107/75 99 12/08/23 01:29 36.8 C 89 16 76/52 L 99 O2 Del Method 12/08/23 08:07 Room Air 12/08/23 07:35 12/08/23 05:15 12/08/23 04:15 12/08/23 03:45 12/08/23 03:30 12/08/23 03:13 12/08/23 03:00 Room Air 12/08/23 02:31 12/08/23 02:01 12/08/23 01:46 12/08/23 01:29 Resident Activity Tracking Resident Involvement: Resident Care Provided Care Provided: Adult Hospital Medicine
[2023-12-08] MEDS: LACTATED RINGER'S 1,000 ML IV SCH (12:28)
[2023-12-08] MEDS: ACETAMINOPHEN 500 MG TAB PO SCH (12:29)
--- NOTE | 2023-12-08 14:05 | Billing Data ---
Date of Service December 08, 2023 Coding Level of Care Code 50428 SUB INP/OBS CARE
[2023-12-09 06:28] LABS: Basophils # (auto) 0.01 K/uL (0.00-0.20); Basophils % (auto) 0.2 %; Eosinophils # (auto) 0.03 K/uL (0.00-0.50); Eosinophils % (auto) 0.6 %; Hematocrit (blood only) 29.4 % (37.0-47.0); Hemoglobin 8.6 g/dl (12.0-16.0); Immature Granulocytes # (auto) 0.05 K/uL (0.01-0.20); Mean Corpuscular Hemoglobin 22.4 pg (25.0-34.0); Mean Corpuscular Hgb Conc 29.3 g/dL (32.0-36.0); Mean Corpuscular Volume 76.6 fL (80.0-100.0); Mean Platelet Volume 9.1 fL (9.4-12.4); Neutrophils # (auto) 3.52 K/uL (1.40-6.50); Neutrophils % (auto) 70.2 %; Platelet Count 289 K/uL (130-400); RDW Coefficient of Variation 17.7 % (11.5-14.5); RDW Standard Deviation 49.3 fL (36.4-46.3); Red Blood Count 3.84 M/uL (4.20-5.40); White Blood Count 5.01 K/ul (4.8-10.8)
[2023-12-09 06:50] LABS: BUN Creatinine Ratio 9.1 (10-20); Creatinine Clr Calc Pharmacy 22.3 ml/min; Est GFR (African American) 29.5 ml/min; Est GFR (Non-African American) 25.5 ml/min; Potassium 4.3 mmol/L (3.5-5.1)
--- NOTE | 2023-12-09 07:14 | Hospitalist Progress Note ---
Date of Service December 09, 2023 Assessment & Plan (1) Iron deficiency anemia: Plan: -Severe symptomatic microcytic anemia Hgb 7.6 on admission, MCV 73, iron 15 -Noted history of poor absorption of PO iron supplementation and seemingly anaphylaxis to Venofer + pretreatment with Benadryl/steroids -CTAP does not suggest any acute bleeding sources -Hgb downtrend to 6.2 2/3, now s/p 2 units pRBCs with hemoglobin stable at 8.6 -Low suspicion for active bleeding at present. Currently hemodynamically stable -Hematology consulted, awaiting recommendations -Monitor CBC (2) ARIANNE (acute kidney injury): Plan: -Cr 3.19 on admission -Likely pre-renal source from intravascular depletion -Cr improved to 2.32 with fluid repletion -Continue IVF for now; LR @150ml/hr -Monitor BMP (3) Chest pressure: Plan: - noted 2/5 qAM - EKG without acute ischemic changes, evidence of prior septal infarct - troponin <2.3, repeat in q6 hours - Will order TTE - so far cardiac work-up negative; GERD on differential on PPI, trial of Maalox (4) B12 deficiency: Plan: - B12= 148 - given GI history, will likely have poor absorption with oral B12 supplementation - heme consulted (5) Severe protein-calorie malnutrition: Plan: -Cachectic, low BMI -Boost supplementation with diet -Dietitian consulted, awaiting recommendations (6) History of DVT (deep vein thrombosis): Plan: -Patient takes Fondaparinex injections every other day at home -Hold Fondaparienx injections while inpatient given CrCl<30 -Heparin 5000u SQ q12h (7) Crohn's disease of colon with fistula: Plan: -Continue prednisone (8) Back pain: Plan: -Likely biomechanical- improving -Supportive care- heating pad ordered, scheduled Tylenol, pt would like to avoid muscle relaxer given side effect intolerance in past -Continue to monitor (9) Adnexal cyst: Plan: -CTAP noting complex L 7.5 x 4.0 cm adnexal cyst -Outpatient f/u Plan Full code Regular diet (boost/protein supplementation) DVT PPx: Hold home Fondaparinex, which is contraindicated for CrCl<30; Heparin 5000u SQ q12h Admission and Anticipated Discharge Date Admission Date: December 07, 2023 Supervising Physician Co-Signing Physician Notes Attending Physician Supervision Note: I independently interviewed and examined the patient and verified the silverio history and physical, reviewed labs and image studies and agree with findings and care plan noted above. chest pain this am. resolved on it's own. no other concerns. vitals noted nad heent nc at mmm breathing unlabored no accessory muscles good effort skin no rashes no pallor or icterus neuro no focal deficits anemia - iron deficiency and underlying anemia of chronic ds. intolerance to IV iron and has received prbc in past. symptoms and h/h stable post transfusion ARF - prerenal with ? ATN. UA from admission noted. will recheck. CT abdomen admission reviewed. consult nephro if creatinine persistently elevated. await hematology input otherwise as above Subjective Pt seen at bedside this morning. Complaining of chest heaviness with associated dyspnea. States that it feels similar to when she had a heart attack in the past. Review of Systems Review of Systems: As per above Physical Exam Physical Exam: Constitutional: well-appearing, no acute distress HEENT: NCAT, no conjunctival injection CV: regular rhythm, no murmur appreciated, extremities well-perfused, no LE edema Resp: CTABL, no wheezes/rales/rhonchi appreciated, no increased work of breathing GI: soft, nondistended, nontender MSK: no gross deformities appreciated Skin: warm, dry, no rash appreciated Neuro: alert, oriented, no focal neurologic deficit appreciated Results & Data Results & Data Vital Signs (Past 12 Hours) Vital Signs Temp Pulse Resp BP Pulse Ox O2 Del Method 12/09/23 03:00 36.7 C 65 17 110/67 97 Room Air 12/08/23 23:00 36.9 C 59 L 14 115/70 98 Room Air
--- NOTE | 2023-12-09 08:37 | Oncology Consultation ---
Date of Consultation December 09, 2023 Assessment & Plan (1) Iron deficiency anemia: (2) B12 deficiency: Plan - Would recommend obtaining records from hematology at [facility] to see what iron formulation she received that resulted in anaphylaxis. She had previously received IV Feraheme at [facility] in 2020 but did not have a reaction to this. If her allergic reaction was to a different formulation of IV iron, would recommend IV Feraheme 510 mg x 2 doses with premedication with Pepcid 20 mg IV, Tylenol 650 mg IV and dexamethasone 20 mg IV -Consider parenteral B12 supplementation 1000 mcg daily while in the hospital and can switch to weekly x 4 doses upon discharge from hospital followed by monthly maintenance parenteral B12. -Continue close follow-up with colorectal surgery and GI Thank you for this consult. Hematology will peripherally follow patient while in the hospital. Please feel free to call if you have any further questions History of Present Illness Reason for Consultation: Iron deficiency anemia Attending Physician: Cordelia Baldwin MD History of Present Illness 38-year-old female with history of Crohn's disease s/p total colectomy as well as small bowel resection with resultant malabsorption for which she has required IV iron supplementation and B12 supplementation. Also has a history of DVT for which she is on fondaparinux. Patient was previously followed at [facility] for several years and required IV iron supplementation. Per documentation, she received 3 doses of IV Feraheme in January, from 01/04/2021 to 01/18/2021 and prior to that had received IV Feraheme x 3 doses from 07/02/2019 to 07/16/2019 with no reports of reaction to iron infusions. She subsequently failed to follow-up at [facility] and states that she was followed up by hematology at [place] where she received IV iron but is unsure of what formulation and developed anaphylaxis.Presented to the ER at [facility] with fatigue, dizziness. Labs reviewed severe anemia with hemoglobin of 6.6, hematocrit of 23.5 and MCV of 72.7. Iron studies revealed ferritin of 45, transferrin saturation of 5% and serum iron of 15 B12 was low at 148. Allergies Allergy/AdvReac Type Severity Reaction Status Date / Time adalimumab [From Humira] Allergy Severe Anaphylaxis Verified 12/07/23 16:07 aspirin Allergy Severe ANAPHYLAXIS Verified 12/07/23 16:07 bee venom protein (honey bee) Allergy Severe Anaphylaxis Verified 12/07/23 16:07 infliximab Allergy Severe ANAPHYLAXIS Verified 12/07/23 16:07 ketorolac [From Toradol] Allergy Severe Swelling Verified 12/07/23 16:07 of Lip/Tongue/Throat NSAIDS (Non-Steroidal Allergy Severe THROAT Verified 12/07/23 16:07 Anti-Inflamma SWELLING Penicillins Allergy Severe Anaphylaxis/FULL Verified 12/07/23 16:07 BODY RASH Sulfa (Sulfonamide Allergy Severe throat Verified 12/07/23 16:07 Antibiotics) swelling azathioprine AdvReac Intermediate MIGRAINE Verified 12/07/23 16:07 Home Medications Medication Instructions Recorded Confirmed Type epinephrine 0.3 mg/0.3 mL 0.3 mg IM Q4H PRN Allergic Reaction 08/26/22 12/07/23 History injection, auto-injector fondaparinux 5 mg/0.4 mL 5 mg subcut .EVERY OTHER DAY 08/04/23 12/07/23 History subcutaneous solution syringe pantoprazole 20 mg tablet,delayed 20 mg PO BID 08/22/23 12/07/23 History release acetaminophen 325 mg tablet 650 mg PO QID PRN Pain 10/02/23 12/07/23 History (Tylenol) buprenorphine HCl 8 mg sublingual 8 mg sublingual BID 10/02/23 12/07/23 History tablet prednisone 20 mg tablet 20 mg PO DAILY #30 tabs 10/04/23 12/07/23 Rx Patient History Medical History History of DVT (deep vein thrombosis) Crohn's disease of colon with fistula Severe protein-calorie malnutrition Chronic pain Anemia Enterocutaneous fistula Severe anemia Protein calorie malnutrition Small bowel obstruction Endometriosis History of MRSA infection "per records" Rheumatoid arthritis Surgical History History of rectal surgery "hundreds of fistula surgeries" S/P exploratory laparotomy endometriosis H/O resection of large bowel multiple resections and clean outs H/O colectomy "total colectomy with ileoanal anastomosis 03/2006" Family History Other Blood clot in vein Social History Smoking Status: Former smoker Tobacco Type: E-cigarettes / Vaping Second Hand Exposure: No; Hx Alcohol Use: No Hx Substance Use: No Preferred Language: [place] Verdean Communication Ability: Effective Production 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
[2023-12-09] MEDS: ALUMINUM/MAGNESIUM SUSP 30 ML UDC PO SCH (11:24)
--- NOTE | 2023-12-09 12:28 | Electrocardiogram Report ---
Test Reason : Blood Pressure : / mmHG Vent. Rate : 071 BPM Atrial Rate : 071 BPM P-R Int : 198 ms QRS Dur : 064 ms QT Int : 374 ms P-R-T Axes : 029 018 045 degrees QTc Int : 406 ms Normal sinus rhythm with sinus arrhythmia Possible Old Septal infarct (cited on or before 07-DEC-2023) Abnormal ECG When compared with ECG of 07-DEC-2023 14:00, Vent. rate has decreased BY 58 BPM T wave inversion no longer evident in Lateral leads Confirmed by Donta Gomez ([id number]) on 12/09/2023 12:27:24 PM Referred By: REFERRED SELF Confirmed By:Donta Gomez
--- NOTE | 2023-12-09 13:55 | XCELERA ---
[id number]
[2023-12-09 20:35] LABS: Appearance Urine Clear (Clear); Bacteria Urine Automated Negative (Negative); Bilirubin Urine Negative (Negative); Blood Urine 1+ (Negative); Color Urine Yellow; Glucose Urine UA Negative (Negative); Ketones Urine Negative (Negative); Leukocyte Esterase Urine 3+ (Negative); Nitrite Urine Negative (Negative); Protein Urine Negative (Negative); RBC Urine Automated 0-4 /hpf (0-4); Specific Gravity Urine 1.007 (1.000-1.030); Urobilinogen Urine Negative (Negative); WBC Urine Automated >30 /hpf (0-5)
[2023-12-10 06:55] LABS: Basophils # (auto) 0.01 K/uL (0.00-0.20); Basophils % (auto) 0.2 %; Eosinophils # (auto) 0.05 K/uL (0.00-0.50); Hematocrit (blood only) 29.8 % (37.0-47.0); Hemoglobin 8.8 g/dl (12.0-16.0); Immature Granulocytes # (auto) 0.06 K/uL (0.01-0.20); Immature Granulocytes % (auto) 1.2 %; Lymphocytes # (auto) 1.04 K/uL (1.20-3.40); Lymphocytes % (auto) 20.1 %; Mean Corpuscular Hemoglobin 22.4 pg (25.0-34.0); Mean Corpuscular Hgb Conc 29.5 g/dL (32.0-36.0); Mean Corpuscular Volume 75.8 fL (80.0-100.0); Mean Platelet Volume 9.3 fL (9.4-12.4); Monocytes # (auto) 0.46 K/uL (0.11-0.59); Monocytes % (auto) 8.9 %; Neutrophils # (auto) 3.56 K/uL (1.40-6.50); Neutrophils % (auto) 68.6 %; Platelet Count 346 K/uL (130-400); RDW Coefficient of Variation 18.3 % (11.5-14.5); RDW Standard Deviation 50.4 fL (36.4-46.3); Red Blood Count 3.93 M/uL (4.20-5.40); White Blood Count 5.18 K/ul (4.8-10.8)
[2023-12-10 07:15] LABS: Calcium 9.4 mg/dl (8.6-10.3); Creatinine Clr Calc Pharmacy 22.8 ml/min; Est GFR (African American) 29.7 ml/min; Est GFR (Non-African American) 25.6 ml/min; Potassium 3.8 mmol/L (3.5-5.1)
[2023-12-10 07:24] LABS: Troponin I High Sensitivity 2.6 pg/ml (0-14)
[2023-12-10] MEDS: LACTATED RINGER'S 1,000 ML IV SCH (09:00)
--- NOTE | 2023-12-10 10:05 | Hospitalist Progress Note ---
Date of Service December 10, 2023 Assessment & Plan (1) Iron deficiency anemia: Plan: -Severe symptomatic microcytic anemia Hgb 7.6 on admission, MCV 73, iron 15 -Noted history of poor absorption of PO iron supplementation. Spoke with hematology in [place] and they confirmed that she had a anaphylactic reaction to Venofer -CTAP does not suggest any acute bleeding sources -Hgb downtrend to 6.2 2/, now s/p 2 units pRBCs with hemoglobin stable at 8.8 -Low suspicion for active bleeding at present. Currently hemodynamically stable -Hematology consulted, recommended IV Feraheme 510 mg x 2 doses with premedication with Pepcid 20 mg IV, Tylenol 650 mg IV and dexamethasone 20 mg IV. Spoke with pharmacy and Feraheme is not formulary -Monitor CBC (2) ARIANNE (acute kidney injury): Plan: -Cr 3.19 on admission -Vesta that initially likely pre-renal source from intravascular depletion as Cr initially improved fluid repletion, but now remains stable at 2.31 - UA + blood, WBC, LE but no urinary symptoms and urine culture from 12/07 without growth - nephrology consulted and feel it is likely hemodynamically medicated given hypotensive, hypovolemia and anemia -Monitor BMP (3) Chest pressure: Plan: - EKG without acute ischemic changes, evidence of prior septal infarct - troponin wnl, TTE wnl - so far cardiac work-up negative; GERD on differential on PPI, trial of Maalox with some improvement, also improvement with d/c of IVF (4) B12 deficiency: Plan: - B12= 148 - given GI history, will likely have poor absorption with oral B12 supplementation - plan for 1000mcg IM while in the hospital and then weekly x 4 doses, followed by monthly maintenance dosing (5) Severe protein-calorie malnutrition: Plan: -Cachectic, low BMI -Boost supplementation with diet -Dietitian consulted, awaiting recommendations (6) History of DVT (deep vein thrombosis): Plan: -Patient takes Fondaparinex injections every other day at home -Hold Fondaparienx injections while inpatient given CrCl<30 -Heparin 5000u SQ q12h switch to Lovenox renally dosed (7) Crohn's disease of colon with fistula: Plan: -Continue prednisone (8) Back pain: Plan: -Likely biomechanical- improving -Supportive care- heating pad ordered, scheduled Tylenol, pt would like to avoid muscle relaxer given side effect intolerance in past -Continue to monitor (9) Adnexal cyst: Plan: -CTAP noting complex L 7.5 x 4.0 cm adnexal cyst -Outpatient f/u Plan Full code Regular diet (boost/protein supplementation) DVT PPx: Lovenox Admission and Anticipated Discharge Date Admission Date: December 07, 2023 Supervising Physician Co-Signing Physician Notes Attending Physician Supervision Note: I independently interviewed and examined the patient and verified the silverio history and physical, reviewed labs and image studies and agree with findings and care plan noted above. reported having highout from ostomy every 3-4 days - ongoing. no other concerns. vitals noted nad heent nc at mmm breathing unlabored no accessory muscles good effort skin no rashes no pallor or icterus neuro no focal deficits severe anemia - iron deficiency and underlying anemia of chronic ds. intolerance to IV iron and has received prbc in past. symptoms and h/h stable post transfusion. per heme - has tolerated Ferrlecit in past - not formulary. ARIANNE - prerenal with ? ATN. UA from admission noted. will recheck. CT abdomen admission reviewed. nephro consulted - continue to maintain positive fluid balance. avoid nephrotoxics. crohn's ds/subtotal colectomy/ileostomy/enterocutaneous fistulas - will need close outpatient monitoring for fluid balance and prn IV fluid resuscitation; nutritional assessment and support. Subjective Pt continues to complain of chest heaviness, worse when laying flat. Improved after stopping IVF. Notes that she has had a lot of watery output from ostomy. Review of Systems Review of Systems: As per above Physical Exam Physical Exam: Constitutional: well-appearing, no acute distress HEENT: NCAT, no conjunctival injection CV: regular rhythm, no murmur appreciated, extremities well-perfused, no LE edema Resp: CTABL, no wheezes/rales/rhonchi appreciated, no increased work of breathing GI: + ostomy MSK: no gross deformities appreciated Skin: warm, dry, no rash appreciated Neuro: alert, oriented, no focal neurologic deficit appreciated Results & Data Results & Data Vital Signs (Past 12 Hours) Vital Signs Temp Pulse Pulse Resp BP Pulse Ox O2 Del Method 12/10/23 07:54 64 12/10/23 07:48 37.5 C 91 H 12 98/63 L 99 Room Air 12/10/23 03:28 36.6 C 71 20 103/63 96 Room Air 12/09/23 22:36 36.8 C 59 L 20 122/73 97 Room Air Resident Activity Tracking Resident Involvement: Resident Care Provided Care Provided: Adult Hospital Medicine
[2023-12-10] MEDS: CYANOCOBALAMIN 1000 MCG/ML VIAL IM SCH (11:18)
[2023-12-10] MEDS: ENOXAPARIN INJ 30 MG/0.3 ML SYR SQ SCH (13:02)
--- NOTE | 2023-12-10 14:15 | Nephrology Consultation ---
Date of Consultation December 10, 2023 Assessment & Plan (1) ARIANNE (acute kidney injury): (2) Acute dehydration: (3) Ileostomy status: Plan 38-year-old female with history of Crohn's disease s/p subtotal colectomy, small bowel resection, ileostomy, enterocutaneous fistula and chronic anemia with malabsorption, requiring blood transfusion, admitted to the hospital with generalized weakness, anemia and ARIANNE. Baseline creatinine has been 0.5-0.6, on admission creatinine 3.2 which slowly improved to 2.3 over last few days. Urinalysis with no proteinuria. Imaging showed otherwise normal kidney. ARIANNE most likely hemodynamically mediated with significant hypotension since admission, profound anemia and possibly some volume depletion with ostomy and enterocutaneous fistula. Received lactated Ringer's, blood pressure improved. -- Expect kidney function to slowly improve, continue to monitor electrolyte, volume status, intake and output while monitor for recovery of kidney function. Aim to keep in positive balance. Avoid nephrotoxic medications. Thank you for allowing me to participate in your patient's care. It was a pleasure to see Elsie. History of Present Illness Reason for Consultation: ARIANNE Attending Physician: Cordelia Baldwin MD History of Present Illness Ms. Elsie Black is a 38-year-old female with PMH of Crohn's disease s/p ileostomy, history of malabsorption and iron deficiency anemia admitted to the hospital with generalized weakness, acute anemia, ARIANNE. Nephrology consult was requested for management of ARIANNE. Electronic medical records were reviewed in detail during patient's visit. Evangelina presented to hospital on 12/07/2023 with 1 week history of fatigue, chills, generalized weakness and dizziness. She was hypotensive on admission with lowest blood pressure 76/52. on admission her hemoglobin was 6.2 with history of chronic anemia requiring blood transfusion. Last blood transfusion was almost a month ago. She received 2 units of PRBC and hemoglobin improved to 8.8 this morning. On admission she was noted to have ARIANNE with creatinine 3.2 which slowly improved over last few days and now down to 2.3. At baseline she had normal renal function, baseline creatinine around 0.5-0.6. Urinalysis was negative for proteinuria but noted to have microscopic hematuria and more than 30 WBC/HPF. CT abdomen pelvis showed otherwise normal kidney. She had an episode of nephrolithiasis a month ago but currently asymptomatic. She has complex past medical history including history of Crohn's disease and previous history of subtotal colectomy and right lower quadrant ileostomy, small bowel resection and enterocutaneous fistula. She continues to have Crohn's dise ase flareup and she has been on prednisone 10 mg daily. Past medical history also significant for history of recurrent UTIs. She also has been on Fondaparinex with history of DVT of lower extremity found in April 2023. She has not had her menstrual period in the past 3-4 years due to her endometriosis; mass on her left ovary. She took all of her regular morning medications today. She is mildly tachycardic at 102 bpm at time of admission; vitals otherwise stable. This morning she complains of ongoing generalized weakness but no shortness of breath, fever, chills. Denies dysuria. Allergies Allergy/AdvReac Type Severity Reaction Status Date / Time adalimumab [From Humira] Allergy Severe Anaphylaxis Verified 12/07/23 16:07 aspirin Allergy Severe ANAPHYLAXIS Verified 12/07/23 16:07 bee venom protein (honey bee) Allergy Severe Anaphylaxis Verified 12/07/23 16:07 infliximab Allergy Severe ANAPHYLAXIS Verified 12/07/23 16:07 ketorolac [From Toradol] Allergy Severe Swelling Verified 12/07/23 16:07 of Lip/Tongue/Throat NSAIDS (Non-Steroidal Allergy Severe THROAT Verified 12/07/23 16:07 Anti-Inflamma SWELLING Penicillins Allergy Severe Anaphylaxis/FULL Verified 12/07/23 16:07 BODY RASH Sulfa (Sulfonamide Allergy Severe throat Verified 12/07/23 16:07 Antibiotics) swelling azathioprine AdvReac Intermediate MIGRAINE Verified 12/07/23 16:07 Home Medications Medication Instructions Recorded Confirmed Type epinephrine 0.3 mg/0.3 mL 0.3 mg IM Q4H PRN Allergic Reaction 08/26/22 12/07/23 History injection, auto-injector fondaparinux 5 mg/0.4 mL 5 mg subcut .EVERY OTHER DAY 08/04/23 12/07/23 History subcutaneous solution syringe pantoprazole 20 mg tablet,delayed 20 mg PO BID 08/22/23 12/07/23 History release acetaminophen 325 mg tablet 650 mg PO QID PRN Pain 10/02/23 12/07/23 History (Tylenol) buprenorphine HCl 8 mg sublingual 8 mg sublingual BID 10/02/23 12/07/23 History tablet prednisone 20 mg tablet 20 mg PO DAILY #30 tabs 10/04/23 12/07/23 Rx Patient History Medical History History of DVT (deep vein thrombosis) Crohn's disease of colon with fistula Severe protein-calorie malnutrition Chronic pain Anemia Enterocutaneous fistula Severe anemia Protein calorie malnutrition Small bowel obstruction Endometriosis History of MRSA infection "per records" Rheumatoid arthritis Surgical History History of rectal surgery "hundreds of fistula surgeries" S/P exploratory laparotomy endometriosis H/O resection of large bowel multiple resections and clean outs H/O colectomy "total colectomy with ileoanal anastomosis 03/2006" Family History Other Blood clot in vein Social History Smoking Status: Former smoker Tobacco Type: E-cigarettes / Vaping Second Hand Exposure: No; Hx Alcohol Use: No Hx Substance Use: No Preferred Language: Australian Communication Ability: Effective Radio Maintainer Required: No Beliefs That Will Affect Care: None Current Living Situation: Family Current Living Situation Comment: Lives at home with daughter Other Information That Helps Us Care for You: No Feels Safe at Home: Yes Safety Concerns: Feels Safe At This Time Assistive Devices: Walker and Other Review of Systems Review of Systems: All systems reviewed & are unremarkable except as noted in Subjective Physical Exam Constitutional: WD/WN, vitals as above no acute distress Eyes: + anicteric sclerae Neck: normal visual inspection Respiratory: no respiratory distress Auscultation: lungs clear to auscultation bilaterally Cardiovascular: Rate/Rhythm: regular rate and regular rhythm Heart Sounds: normal S1 and normal S2 Extremities: no edema Gastrointestinal (Abdomen): Ileostomy in right lower quadrant. Musculoskeletal: Extremities: extremities normal to inspection Neurologic: no focal motor deficits Psychiatric: Orientation: alert and oriented x 3 Affect: euthymic affect Results & Data Vital Signs (Past 12 Hours) Vital Signs Temp Pulse Pulse Resp BP Pulse Ox O2 Del Method 12/10/23 11:53 36.9 C 77 19 93/56 L 95 Room Air 12/10/23 07:54 64 12/10/23 07:48 37.5 C 91 H 12 98/63 L 99 Room Air 12/10/23 03:28 36.6 C 71 20 103/63 96 Room Air PG Care Time/CCT Total # of Minutes Spent Total Time Spent with Patient: Total time spent is greater than 50% in coordination of care (as documented) at patient's floor/unit and/or counseling patient: Coding Level of Care Code 13139 IN/OBS CONSULT LVL 4,60M Diagnoses ARIANNE (acute kidney injury) N17.9 Acute dehydration E86.0 Ileostomy status Z93.2
[2023-12-11 06:57] LABS: Hematocrit (blood only) 29.3 % (37.0-47.0); Hemoglobin 8.8 g/dl (12.0-16.0); Mean Corpuscular Volume 76.7 fL (80.0-100.0); Mean Platelet Volume 9.1 fL (9.4-12.4); Platelet Count 358 K/uL (130-400); RDW Coefficient of Variation 18.7 % (11.5-14.5); RDW Standard Deviation 51.7 fL (36.4-46.3); Red Blood Count 3.82 M/uL (4.20-5.40)
[2023-12-11 07:07] LABS: Albumin Level 3.1 gm/dl (3.4-5.0); BUN Creatinine Ratio 18.1 (10-20); Bilirubin,Total 0.2 mg/dl (0.2-1.0); Calcium 9.3 mg/dl (8.6-10.3); Creatinine Clr Calc Pharmacy 29.7 ml/min; Est GFR (African American) 40.9 ml/min; Est GFR (Non-African American) 35.3 ml/min; Globulin 3.2 gm/dl (2.5-4.0); Magnesium 1.5 mg/dl (1.7-2.4); Phosphorus 3.3 mg/dl (2.5-4.9); Potassium 4.2 mmol/L (3.5-5.1); Total Protein 6.3 gm/dl (6.0-8.3)
[2023-12-11] MEDS: MAGNESIUM SULFATE / D5W 1 GM/100 ML BAG IV ONE (09:58)
--- NOTE | 2023-12-11 10:20 | Nephrology Progress Note ---
Date of Service December 11, 2023 Assessment & Plan (1) ARIANNE (acute kidney injury): (2) Acute dehydration: (3) Ileostomy status: Plan 38-year-old female with history of Crohn's disease s/p subtotal colectomy, small bowel resection, ileostomy, enterocutaneous fistula and chronic anemia with malabsorption, requiring blood transfusion, admitted to the hospital with generalized weakness, anemia and ARIANNE. Baseline creatinine has been 0.5-0.6, on admission creatinine 3.2 which slowly improved to 2.3 over last few days. Urinalysis with no proteinuria. Imaging showed otherwise normal kidney. ARIANNE most likely hemodynamically mediated with significant hypotension since admission, profound anemia and possibly some volume depletion with ostomy and enterocutaneous fistula. Received lactated Ringer's, blood pressure improved. Kidney function continues to improve, creatinine down to 1.7 this morning, electrolyte improved. --Although kidney function still far from baseline however creatinine continue to trend to improve and expect to continue to improve. Encouraged to keep well- hydrated. --Avoid regular use of NSAIDs --Okay to be discharged with close outpatient lab monitoring by PCP, no nephrology follow-up needed at this time unless any further worsening of kidney function. Admission and Anticipated Discharge Date Admission Date: December 07, 2023 Kassandra Zimmerman was seen and evaluated this morning. Overall she has been feeling well, denies any abdominal pain, fever, chills. Hemoglobin improved and stable. Kidney function continues to improve, creatinine down to 1.8, electrolyte acceptable. Blood pressure relatively low, chronic and asymptomatic. Has been having decent urine output. Review of Systems Review of Systems: All systems reviewed & are unremarkable except as noted in Subjective Physical Exam Constitutional: WD/WN, vitals as above no acute distress Eyes: + anicteric sclerae Neck: normal visual inspection Respiratory: no respiratory distress Auscultation: lungs clear to auscultation bilaterally Cardiovascular: Rate/Rhythm: regular rate and regular rhythm Heart Sounds: normal S1 and normal S2 Extremities: no edema Musculoskeletal: Extremities: extremities normal to inspection Neurologic: no focal motor deficits Psychiatric: Orientation: alert and oriented x 3 Affect: euthymic affect Results & Data Vital Signs (Past 12 Hours) Vital Signs Temp Pulse Resp BP Pulse Ox O2 Del Method 12/11/23 08:31 36.8 C 83 18 98/69 L 99 Room Air 12/11/23 03:07 36.7 C 62 20 108/68 98 Room Air 12/10/23 23:36 36.6 C 64 18 104/61 98 Room Air PG Care Time/CCT Total # of Minutes Spent Total Time Spent with Patient: Total time spent is greater than 50% in coordination of care (as documented) at patient's floor/unit and/or counseling patient: Coding Level of Care Code 70395 SUB INP/OBS CARE 2/35MIN Diagnoses ARIANNE (acute kidney injury) N17.9 Acute dehydration E86.0 Ileostomy status Z93.2
[2023-12-11] MEDS: ENOXAPARIN INJ 40 MG/0.4 ML SYR SQ SCH (14:07)
--- NOTE | 2023-12-11 15:22 | Discharge Summary ---
Date of Service December 11, 2023 Admission HPI Per Admitting Provider Elsie is a 38-year-old female with PMH of iron deficiency anemia, endometriosis, Crohn's disease, ileostomy status, microcytic anemia, FTT, and sepsis. She presented for dizziness, fatigue, and chills x 1 week. She reports that she been sick or for longer than 1 week; originally she thought that she had the flu. However, within the past week she has had symptoms similar to past episodes of symptomatic anemia (fatigue, dizziness, chills). She has had blood transfusions in the past, which required extra time to arrive due to a special antibody. She is on Fondaparinex at home for a blood clot in her leg that was discovered in April 2023. She has had intermittent fevers at home over the past week, with the highest being 103 F (for which she takes Tylenol 1 tablet when needed). History of a recent kidney stone 1 month ago; this was the first occurrence. She has been taking cranberry pills/Azo for the last 3 days and feeling lots of water. She reports she has had recurrent UTIs in the past. She also notes left-sided flank pain and back pain x 1 week. She has not had her menstrual period in the past 3-4 years due to her endometriosis; mass on her left ovary. She took all of her regular morning medications today. She is mildly tachycardic at 102 bpm at time of admission; vitals otherwise stable. ED course: NSS 1000 mL IV x 2 ROS: Patient endorses fever, chills, nightsweats, body ache, headaches, visual disturbance (spots in eyes, blurry; with fever), light sensitivity, sore throat, sinus congestion, chest palpitations (intermittent; every few days; lasts for minutes - hours), back pain (chronic), left sided flank pain, and cold intolerance in legs. Patient denies lightheadedness, loss of vision, diplopia, cough, chest pain, SOB, abdominal pain, N/V/D, dysuria, blood in the urine/stool, burning with urination, urinary retention, saddle anesthesia, or numbness/tingling in the legs. Principal Diagnosis Iron def anemia, ARIANNE Discharge Exam Constitutional: well-appearing, no acute distress HEENT: NCAT, no conjunctival injection CV: regular rhythm, no murmur appreciated, extremities well-perfused, no LE edema Resp: CTABL, no wheezes/rales/rhonchi appreciated, no increased work of breathing GI: + ostomy MSK: no gross deformities appreciated Skin: warm, dry, no rash appreciated Neuro: alert, oriented, no focal neurologic deficit appreciated Discharge Data Allergies Allergy/AdvReac Type Severity Reaction Status Date / Time adalimumab [From Humira] Allergy Severe Anaphylaxis Verified 12/07/23 16:07 aspirin Allergy Severe ANAPHYLAXIS Verified 12/07/23 16:07 bee venom protein (honey bee) Allergy Severe Anaphylaxis Verified 12/07/23 16:07 infliximab Allergy Severe ANAPHYLAXIS Verified 12/07/23 16:07 ketorolac [From Toradol] Allergy Severe Swelling Verified 12/07/23 16:07 of Lip/Tongue/Throat NSAIDS (Non-Steroidal Allergy Severe THROAT Verified 12/07/23 16:07 Anti-Inflamma SWELLING Penicillins Allergy Severe Anaphylaxis/FULL Verified 12/07/23 16:07 BODY RASH Sulfa (Sulfonamide Allergy Severe throat Verified 12/07/23 16:07 Antibiotics) swelling azathioprine AdvReac Intermediate MIGRAINE Verified 12/07/23 16:07 Consultations 12/07/23 15:48 ED Decision to Admit Stat 12/07/23 17:34 Consult Hematology Routine 12/10/23 08:57 Consult Nephrology Routine Ordered Studies 12/07/23 16:19 CT Abdomen and Pelvis [CT abd pelvis wo con] Urgent Hospital Course (1) Iron deficiency anemia: -Severe symptomatic microcytic anemia Hgb 7.6 on admission, MCV 73, iron 15 -Noted history of poor absorption of PO iron supplementation. Spoke with hematology in [place] and they confirmed that she had a anaphylactic reaction to Venofer -CTAP does not suggest any acute bleeding sources -Hgb downtrend to 6.2 2/3, now s/p 2 units pRBCs with hemoglobin stable at 8.8 -Low suspicion for active bleeding at present. Currently hemodynamically stable -Hematology consulted, recommended IV Feraheme 510 mg x 2 doses with premedication with Pepcid 20 mg IV, Tylenol 650 mg IV and dexamethasone 20 mg IV. Spoke with pharmacy and Feraheme is not formulary, so will plan to f/u with CCP for OP infusion -Repeat CBC in 2-3 days, results sent to PCP (2) ARIANNE (acute kidney injury): -Cr 3.19 on admission -Likely pre-renal source from intravascular depletion as Cr initially improved fluid repletion, done to 1.77 prior to d/c - UA + blood, WBC, LE but no urinary symptoms and urine culture from 12/07 without growth - nephrology consulted and feel it is likely hemodynamically medicated given hypotensive, hypovolemia and anemia - encouraged good hydration -Repeat BMP in 2-3 days, results sent to PCP (3) Chest pressure: - EKG without acute ischemic changes, evidence of prior septal infarct - troponin wnl, TTE wnl - cardiac work-up negative; GERD on differential on PPI, trial of Maalox with some improvement, also improvement with d/c of IVF - resolved prior to d/c (4) B12 deficiency: - B12= 148 - given GI history, will likely have poor absorption with oral B12 supplementation - plan for 1000mcg IM while in the hospital and then weekly x 4 doses, followed by monthly maintenance dosing (5) Severe protein-calorie malnutrition: -Cachectic, low BMI -Boost supplementation with diet (6) History of DVT (deep vein thrombosis): -Patient takes Fondaparinex injections every other day at home -Hold Fondaparienx injections while inpatient given CrCl<30; CrCl= 29 prior to d/c plan to resume 12/13 (7) Crohn's disease of colon with fistula: -Continue prednisone - should get established with a GI locally (8) Adnexal cyst: -CTAP noting complex L 7.5 x 4.0 cm adnexal cyst -Outpatient f/u Total Time Total Time Spent Total Time Spent (In Minutes): See attending attestation Discharge Plan Discharge Items Patient Disposition: Home - Self-Care Reason For Visit: DIZZINESS, ANEMIA, BACK PAIN Discharge Diagnosis: ARIANNE, Anemia Activity: Per Instructions section Non-emergency contact: Primary Care Provider Call non-emergency contact if: you have any medication questions and your symptoms worsen Follow-up/Referrals: Katie Okeefe CRNP [Primary Care Provider] - 12/13/23 9:00 am Janina Almanzar MD [Physician] - Diet: Regular Ambulatory Orders: Complete Blood Count no Diff (Routine) Timeframe: 2 Days Location: Determined by Patient Ordered By: Kellen Hudson Complete Blood Count no Diff (Timed) Timeframe: 2 Days Location: Determined by Patient Ordered By: Kellen Hudson Add Attending Provider Instructions: Anemia Both your iron and B12 were low, which we believe has been contributing to your anemia. We are going to send a prescription for B12 injections to your pharmacy, you should use these once per week for the next month (next due 12/18) and then once per month with closer monitoring on B12 levels. WE would like you to follow up with hematology to arrange iron transfusion. I have asked for them to reach out to you to make an appointment. Acute Kidney Injury We feel that this was likely caused by both your anemia and dehydration. Please ensure that you are drinking plenty of fluids. You should get repeat lab work , we have placed the order for it and will have the results sent to your primary care provider. Anticoagulation Pending Studies at Discharge: No Stand-Alone Forms: [facility], Smoking Cessation Medications and DC Order Prescriptions: New cyanocobalamin (vitamin B-12) 1,000 mcg/mL kit 1,000 mcg IM .weekly 28 Days Qty: 1 0RF Continued epinephrine 0.3 mg/0.3 mL Auto-Injector 0.3 mg IM Q4H PRN (Reason: Allergic Reaction) acetaminophen [Tylenol] 325 mg Tablet 650 mg PO QID PRN (Reason: Pain) buprenorphine HCl 8 mg tablet, sublingual 8 mg SUBLINGUAL BID pantoprazole 20 mg Tablet,Delayed Release (Dr/Ec) 20 mg PO BID prednisone 20 mg Tablet 20 mg PO DAILY 30 Days Qty: 30 0RF Held fondaparinux 5 mg/0.4 mL syringe 5 mg subcut .EVERY OTHER DAY Hold Instructions: Resume on 12/13/23. Discharge Orders: Discharge Order (Routine); Ordered 12/11/23 Ordered By: Kellen Hudson Admission Data Admit Date/Time: 12/07/23 16:37 Attending Provider: Cordelia Baldwin Admit Provider: Barrie Marquez Primary Care Provider: Katie Okeefe Other Providers: Barrie Marquez; Janina Almanzar; Pérez Lindo; Lamar Anand Other Interventions: Discharge Summary Assessment (RN) Last Done: 12/11/23 14:51 Supervising Physician Co-Signing Physician Notes Attending Physician Supervision Note: I independently interviewed and examined the patient and verified the silverio history and physical, reviewed labs and image studies and agree with findings and care plan noted above. feeling much better this morning. wanting to go home. vitals noted nad heent nc at mmm breathing unlabored no accessory muscles good effort skin no rashes no pallor or icterus neuro no focal deficits severe anemia - iron deficiency and underlying anemia of chronic ds. intolerance to IV venofer. s/p prbc and symptoms and h/h stable post transfusion. per heme - has tolerated Ferrlecit in past - not formulary. outpt heme f/u. ARIANNE - likely prerenal from fluid loss. nephro consulted. recommended maintaining positive fluid balance. avoid nephrotoxics. improved creatinine from >3 to 1.77 on day of discharge. crohn's ds/subtotal colectomy/ileostomy/enterocutaneous fistulas and with highout from ostomy every 3-4 days -will need close outpatient monitoring for fluid balance and prn IV fluid resuscitation; nutritional assessment and suppo rt. Resident Activity Tracking Resident Involvement: Resident Care Provided Care Provided: Adult Hospital Medicine
== END 2023-12-11 16:10 | disposition home or self-care (01) | DRG 811 ==
LOC: ED 13:44 → 2E 16:37 → SUATTDRO 16:37 → 2E 17:34

== ENCOUNTER 2024-05-23 12:32 | Observation (INO) ==
[2024-05-23] MEDS: SODIUM CHLORIDE 0.9% 500 ML IV SCH (13:30)
[2024-05-23 13:51] LABS: Basophils # (auto) 0.03 K/uL (0.00-0.20); Basophils % (auto) 0.3 %; Eosinophils # (auto) 0.07 K/uL (0.00-0.50); Eosinophils % (auto) 0.6 %; Hematocrit (blood only) 40.3 % (37.0-47.0); Hemoglobin 12.4 g/dl (12.0-16.0); Immature Granulocytes # (auto) 0.06 K/uL (0.01-0.20); Immature Granulocytes % (auto) 0.5 %; Lymphocytes # (auto) 0.94 K/uL (1.20-3.40); Lymphocytes % (auto) 8.1 %; Mean Corpuscular Hemoglobin 25.5 pg (25.0-34.0); Mean Corpuscular Hgb Conc 30.8 g/dL (32.0-36.0); Mean Corpuscular Volume 82.9 fL (80.0-100.0); Mean Platelet Volume 10.6 fL (9.4-12.4); Monocytes # (auto) 0.48 K/uL (0.11-0.59); Monocytes % (auto) 4.2 %; Neutrophils # (auto) 9.96 K/uL (1.40-6.50); Neutrophils % (auto) 86.3 %; Platelet Count 288 K/uL (130-400); RDW Coefficient of Variation 15.6 % (11.5-14.5); RDW Standard Deviation 47.3 fL (36.4-46.3); Red Blood Count 4.86 M/uL (4.20-5.40); White Blood Count 11.54 K/ul (4.8-10.8)
[2024-05-23] MEDS: HYDROmorphone INJ 0.5 MG/0.5 ML SYR IV STA (13:56)
[2024-05-23] MEDS: ONDANSETRON INJ 2 MG/ML 2 ML VIAL IV STA (13:56)
--- NOTE | 2024-05-23 14:04 | Emergency Department Note ---
Impression & Plan Postoperative abdominal pain, Bilateral flank pain ED Provider Note NAME: JANAY GIL AGE: 38 SEX: Female INFORMANT: Patient ED PROVIDER(S): Ignacio Ruiz MD CHIEF COMPLAINT: Abdominal pain and infection PLAN: Disposition admitted: Outpatient prescription management: none Referral: None MEDICAL DECISION MAKING: Patient presented because of abdominal pain. Complaining of drainage and pain at her incision site from 3 months ago. There is some mild drainage and erythema noted. Ostomy present. Functioning. No bloody output. Patient does have some flank tenderness on palpation. Patient was hydrated. She was treated with IV Zofran and IV Dilaudid. CT imaging performed. No signs of obstruction. Mild inflammation in the perianal area without definitive abscess. Given the patient's inability to tolerate oral antibiotics patient was given IV Rocephin and vancomycin after consultation with the ED pharmacist. Record review indicated that she is tolerated the ceftriaxone in the past given her allergies to penicillin. On reassessment patient was doing well and was agreeable for admission. Consultation was made with Dr. Barrie Marquez of the [facility] service. Patient was evaluated in the ER for further management. Care/management discussed with: gift manager Level of care consideration(s): After review of the information above and other included data, I feel the patient requires escalation of care to admission Triage Nursing notes: reviewed and agree them. Vital Signs: reviewed and remarkable for no significant abnormalities Additional History obtained from: none Chronic Medical/Social Conditions affecting care: Failure to thrive, ileostomy status Prior/ Outside/ External records reviewed: No recent cultures noted. Urinary cultures present showing a Klebsiella and Streptococcus Differential Diagnosis: Postoperative infection, postoperative pain, renal colic, UTI, appendicitis, diverticulitis, mesenteric ischemia, aortic pathology, infections, inflammatory bowel disease, PUD, biliary pathology, as well as other pathologies. Diagnostics, independently interpreted by me: ECG: none Cardiac Monitoring: Cardiac monitoring ordered by me: The patient was placed on continuous cardiac monitoring and observed. It revealed a normal sinus rhythm at 74 beats per minute without ectopy or evidence of dysrhythmia. Medical decision rules: none Imaging studies: I refer you to the EMR for further details. HPI: 38 year old Female arrives for evaluation of abdominal pain and wound infection. Patient states that in February [facility] she had abdominal surgery. She has a history of bowel resection and ostomy. Patient states she has been having drainage and pain at site. She did contact the clinic and was referred to the ER for IV antibiotics. Patient states that she is unable to tolerate oral antibiotics as she has such a short gut that there is no absorption that takes place. She also notes nausea and vomiting. Patient also notes fever at home as well as flank pain. Pt denies headache, neck pain, chest pain, breathing difficulties, melena, hematochezia, urinary symptoms, numbness, weakness, lymphadenopathy, rash, or other complaints.. PAST MEDICAL HISTORY: See Below, UTI, sepsis PAST SURGICAL HISTORY: See Below, bowel resection, ostomy SOCIAL HISTORY: See Below, vapes HOME MEDICATIONS: See Below ALLERGIES: See Below VITALS: See Below PHYSICAL EXAMINATION: GENERAL: Awake, alert, uncomfortable-appearing, in no distress HENT: Normocephalic, atraumatic. Oropharynx unremarkable. EYES: Normal conjunctiva. Sclera non-icteric. NECK: Inspection normal. Non-tender. Supple. No nuchal rigidity. FROM. No masses. RESPIRATORY: Clear to auscultation. No wheezes. No rales. Normal respiratory effort. CARDIAC: Normal rate. Normal rhythm. No murmurs. No rubs. Extremities warm and well perfused. Pulses equal. No JVD. GI: Soft, non-distended. Midline tenderness to palpation. Ostomy present in the right lower quadrant and functioning. No blood in the bag. There is some mild drainage from the incision at the midline with associated erythema. MUSCULOSKELETAL: Atraumatic. Chest examination reveals no tenderness. The back is symmetrical on inspection without obvious abnormality. There is bilateral CVA tenderness to palpation. No joint edema. LOWER EXTREMITIES: Calves are equal size bilaterally and non-tender. No edema. No discoloration. NEURO: Normal sensorium. No sensory or motor deficits noted. SKIN: No rash or jaundice noted. PROCEDURES: none CRITICAL CARE: none OBSERVATION NOTE: none Past Med/Surg History Problem List (Updated 01/11/24 @ 00:11 by Background Daemon) Lower back pain Abdominal infection Bilateral flank pain (Acute) Postoperative abdominal pain (Acute) Anemia B12 deficiency Chest pressure Adnexal cyst Back pain Adrenal cyst Crohn's disease of colon with fistula History of DVT (deep vein thrombosis) Severe protein-calorie malnutrition ARIANNE (acute kidney injury) (Acute) Acute cellulitis (Acute) Sepsis (Acute) FTT (failure to thrive) in adult Acute hypotension (Acute) Shortness of breath (Acute) Acute dehydration (Acute) Hypomagnesemia (Acute) Microcytic anemia Hypocalcemia Hypoglycemia Lesion of ovary Abdominal pain (Acute) UTI (urinary tract infection) (Acute) Acute hypokalemia (Acute) Metabolic acidosis (Acute) Ileostomy status Iron deficiency anemia (Acute) History of MRSA infection (Chronic) "per records" Endometriosis (Chronic) H/O colectomy (Chronic) "total colectomy with ileoanal anastomosis 03/2006" Medical History (Updated 05/23/24 @ 18:13 by Kiran Cunningham PA-C) Chronic pain Enterocutaneous fistula Severe anemia Protein calorie malnutrition Small bowel obstruction Rheumatoid arthritis Surgical History (Updated 01/11/24 @ 00:11 by Chasidy Giraldo) History of rectal surgery "hundreds of fistula surgeries" S/P exploratory laparotomy endometriosis H/O resection of large bowel multiple resections and clean outs Family History Other Blood clot in vein Social History Smoking Status: Never smoker Tobacco Type: E-cigarettes / Vaping Second Hand Exposure: No; Hx Alcohol Use: No Hx Substance Use: No Preferred Language: Citizen Of [place] Communication Ability: Effective Cut Off Worker Required: No Beliefs That Will Affect Care: None Current Living Situation: Family Current Living Situation Comment: Lives at home with daughter Feels Safe at Home: Yes Assistive Devices: Walker and Other Allergies Allergies Allergy/AdvReac Type Severity Reaction Status Date / Time adalimumab [From Humira] Allergy Severe Anaphylaxis Verified 03/12/24 17:30 aspirin Allergy Severe ANAPHYLAXIS Verified 03/12/24 17:30 bee venom protein (honey bee) Allergy Severe Anaphylaxis Verified 03/12/24 17:30 infliximab Allergy Severe ANAPHYLAXIS Verified 03/12/24 17:30 ketorolac [From Toradol] Allergy Severe Swelling Verified 03/12/24 17:30 of Lip/Tongue/Throat NSAIDS (Non-Steroidal Allergy Severe THROAT Verified 03/12/24 17:30 Anti-Inflamma SWELLING Penicillins Allergy Severe Anaphylaxis/FULL Verified 03/12/24 17:30 BODY RASH Sulfa (Sulfonamide Allergy Severe throat Verified 03/12/24 17:30 Antibiotics) swelling azathioprine AdvReac Intermediate MIGRAINE Verified 03/12/24 17:30 Home Meds Home Medications Medication Instructions Recorded Confirmed epinephrine 0.3 mg/0.3 mL 0.3 mg IM Q4H PRN Allergic Reaction 08/26/22 05/23/24 injection, auto-injector buprenorphine HCl 8 mg sublingual 8 mg sublingual BID 10/02/23 05/23/24 tablet lansoprazole 30 mg delayed 30 mg PO DAILY 03/12/24 05/23/24 release,disintegrating tablet fondaparinux 2.5 mg/0.5 mL 2.5 mg subcut Q24H 05/23/24 05/23/24 subcutaneous solution syringe prednisone 20 mg tablet 10 mg PO DAILY 05/23/24 05/23/24 Results & Data (ED) Vital Signs Vital Signs - 24 hr 05/23/24 12:33 05/23/24 13:00 05/23/24 13:12 Temperature 36.6 C Temperature Source Temporal Artery Scan Pulse Rate 120 H 92 H 97 H Respiratory Rate 18 14 Blood Pressure 124/85 108/72 Blood Pressure Mean 98 87 Pulse Oximetry 99 Oxygen Delivery Method Room Air Sepsis Recent Fever Within 48 Hours No Sepsis New/Unexplained Change in Mental Status N/A Sepsis Action Taken by Nursing No Action Required 05/23/24 13:30 05/23/24 14:00 05/23/24 14:00 Temperature Temperature Source Pulse Rate 82 Respiratory Rate 13 Blood Pressure 105/75 112/80 Blood Pressure Mean 89 91 Pulse Oximetry 100 99 Oxygen Delivery Method Room Air Sepsis Recent Fever Within 48 Hours Sepsis New/Unexplained Change in Mental Status Sepsis Action Taken by Nursing 05/23/24 15:00 05/23/24 17:02 05/23/24 17:18 Temperature Temperature Source Pulse Rate 79 78 74 Respiratory Rate 18 11 L Blood Pressure 95/68 L Blood Pressure Mean 77 Pulse Oximetry 97 Oxygen Delivery Method Sepsis Recent Fever Within 48 Hours Sepsis New/Unexplained Change in Mental Status Sepsis Action Taken by Nursing Laboratory Data 05/23/24 12:55 05/23/24 14:02 Lab Results 05/23/24 05/23/24 05/23/24 Range/Units 12:55 14:02 14:21 WBC 11.54 H (4.8-10.8) K/ul RBC 4.86 (4.20-5.40) M/uL Hgb 12.4 (12.0-16.0) g/dl Hct 40.3 (37.0-47.0) % MCV 82.9 (80.0-100.0) fL MCH 25.5 (25.0-34.0) pg MCHC 30.8 L (32.0-36.0) g/dL RDW Std Deviation 47.3 H (36.4-46.3) fL RDW Coeff of [place] 15.6 H (11.5-14.5) % Plt Count 288 (130-400) K/uL MPV 10.6 (9.4-12.4) fL Immature Gran % (Auto) 0.5 % Neut % (Auto) 86.3 % Lymph % (Auto) 8.1 % [place] % (Auto) 4.2 % Eos % (Auto) 0.6 % Baso % (Auto) 0.3 % Neut # (Auto) 9.96 H (1.40-6.50) K/uL Lymph # (Auto) 0.94 L (1.20-3.40) K/uL [place] # (Auto) 0.48 (0.11-0.59) K/uL Eos # (Auto) 0.07 (0.00-0.50) K/uL Baso # (Auto) 0.03 (0.00-0.20) K/uL Immature Gran # (Auto) 0.06 (0.01-0.20) K/uL Sodium TNP 140 Potassium TNP 3.4 L Chloride 102 (98-107) mmol/L Carbon Dioxide 26 (21-32) mmol/L Anion Gap TNP BUN 10 (6-23) mg/dl Creatinine 0.89 (0.6-1.2) mg/dl Est Cr Clr Drug Dosing 66.5 ml/min Est GFR ( Amer) 94.0 ml/min Est GFR (Non-Af Amer) 81.1 ml/min BUN/Creatinine Ratio 11.2 (10-20) Glucose 88 (70-99(Fasting)) mg/dl Lactate 0.8 (0.4-2.0) mmol/L Calcium 9.5 (8.6-10.3) mg/dl Magnesium TNP 1.7 Total Bilirubin 0.6 (0.2-1.0) mg/dl Direct Bilirubin TNP 0.1 AST TNP 17 ALT 30 (7-52) U/L Alkaline Phosphatase 85 (34-104) U/L Troponin I High Sens < 2.3 (0-14) pg/ml Total Protein 7.6 (6.0-8.3) gm/dl Albumin 4.3 (3.4-5.0) gm/dl Procalcitonin Cancelled < 0.02 Administered Medications Potassium Chloride (K Vickey / Wtr) 10 meq in 100 mls @ 100 mls/hr IV Q1H XENA Stop: 05/23/24 19:44 Last Admin: 05/23/24 18:08 Dose: 100 mls/hr Documented By: OAC Magnesium Sulfate/Dextrose (Magnesium Sulfate / D5w) 1 gm in 100 mls @ 50 mls/hr IV ONE ONE Stop: 05/23/24 19:30 Last Admin: 05/23/24 18:08 Dose: 50 mls/hr Documented By: OAC Discontinued Medications Hydromorphone HCl (Hydromorphone Inj 0.5 Mg/0.5 Ml Syr) 0.5 mg IV NOW STA Stop: 05/23/24 13:43 Last Admin: 05/23/24 13:56 Dose: 0.5 mg Documented By: BS Sodium Chloride (Nss) 500 mls @ 999 mls/hr IV .Q31M XENA Stop: 05/23/24 14:00 Last Infusion: 05/23/24 14:02 Dose: Infused Documented By: Admin: 05/23/24 13:30 Dose: 999 mls/hr Documented By: BS Ceftriaxone Sodium (Rocephin) 2,000 mg in 50 mls @ 100 mls/hr IV NOW STA Stop: 05/23/24 17:29 Last Infusion: 05/23/24 17:39 Dose: Infused Documented By: Admin: 05/23/24 17:07 Dose: 100 mls/hr Documented By: CASIMIRO Vancomycin HCl 1,250 mg/ (Sodium Chloride) 275 mls @ 200 mls/hr IV NOW STA Stop: 05/23/24 18:23 Last Admin: 05/23/24 18:08 Dose: 200 mls/hr Documented By: CASIMIRO Ioversol (Optiray 320 100ml) 94 ml IV ONCE ONE Stop: 05/23/24 14:26 Last Admin: 05/23/24 14:25 Dose: 94 ml Documented By: NGOZI Lansoprazole (Lansoprazole 30 Mg Soltab) 30 mg PO NOW STA Stop: 05/23/24 18:06 Last Admin: 05/23/24 18:22 Dose: 30 mg Documented By: OAC Ondansetron HCl (Ondansetron Inj 2 Mg/Ml 2 Ml Vial) 4 mg IV NOW STA Stop: 05/23/24 13:43 Last Admin: 05/23/24 13:56 Dose: 4 mg Documented By: BS Prednisone (Prednisone 10 Mg Tablet) 10 mg PO NOW STA Stop: 05/23/24 18:05 Last Admin: 05/23/24 18:21 Dose: 10 mg Documented By: OAC Imaging Data Radiologist's Impression: Abdomen/Pelvis CT 05/23/24 13:42 CT abd pelvis IV con only CLINICAL HISTORY: anterior abd incision drainage TECHNIQUE: Helical axial images of the abdomen and pelvis were obtained and displayed. Automated dose lowering techniques and/or adjustment according to patient size were utilized for this exam. This exam was performed with intravenous contrast. CT DOSE: 856.63 mGy.cm COMPARISON: Comparison is made to CT abdomen pelvis before FINDINGS: Lower chest: No acute abnormality. Liver: Unremarkable. No focal lesions are seen. Gallbladder and biliary tree: No calcified gallstones. Normal caliber wall. No intra- or extrahepatic biliary ductal dilation. Pancreas: Unremarkable, no focal lesions. Spleen: Unremarkable. Adrenals: Unremarkable. Kidneys and ureters: Unremarkable. Bladder: Unremarkable. Reproductive organs: Left ovarian cyst is seen. Bowel: Postoperative changes of colectomy with right lower quadrant ostomy. Lymph nodes Retroperitoneal: Unremarkable. Pelvic: Unremarkable. Mesenteric: Unremarkable. Peritoneum: Normal. Vessels: Unremarkable. Abdominal wall: Left abdominal wall drain is seen. Right perianal soft tissue stranding is seen without definite drainable fluid collection. Bones: Degenerative changes in the visualized spine. IMPRESSION: Right perirenal soft tissue stranding is again, possibly a fistula/abscess but with no large drainable abscess. Postsurgical changes of colectomy and ostomy formation with a left abdominal wall drain. ACT 112: Negative or not required by law. Electronically signed by: Rufino Donahue M.D. 05/23/2024 2:45 PM Discharge Plan Visit Data Chief Complaint: Infection Stated Complaint: INFECTION ON ABDOMEN S/P ABD SURGERY IN FEBRUARY ED Provider: Ignacio Ruiz Discharge Problem: Postoperative abdominal pain, Bilateral flank pain Forms Stand Alone Forms: My [facility] [employer] Prescriptions Prescriptions: No Action epinephrine 0.3 mg/0.3 mL Auto-Injector 0.3 mg IM Q4H PRN (Reason: Allergic Reaction) buprenorphine HCl 8 mg tablet, sublingual 8 mg SUBLINGUAL BID prednisone 20 mg tablet 10 mg PO DAILY Rx Instructions: per patient she does 10 mg instead of 20 mg daily fondaparinux 2.5 mg/0.5 mL syringe 2.5 mg subcut Q24H lansoprazole 30 mg tablet,disintegrat, delay rel 30 mg PO DAILY Rx Instructions: dissolve 1 tablet under tongue 30 min to 1 hour prior to meals Referrals Referrals: Katie Okeefe CRNP [Primary Care Provider] -
[2024-05-23 14:07] LABS: Blood Urea Nitrogen 10 mg/dl (6-23); Carbon Dioxide 26 mmol/L (21-32); Chloride 102 mmol/L (98-107)
[2024-05-23 14:08] LABS: Alanine Aminotransferase 30 U/L (7-52); Albumin Level 4.3 gm/dl (3.4-5.0); Alkaline Phosphatase 85 U/L (34-104); BUN Creatinine Ratio 11.2 (10-20); Bilirubin,Total 0.6 mg/dl (0.2-1.0); Calcium 9.5 mg/dl (8.6-10.3); Creatinine Clr Calc Pharmacy 66.5 ml/min; Est GFR (Non-African American) 81.1 ml/min; Glucose 88 mg/dl (70-99(Fasting)); Total Protein 7.6 gm/dl (6.0-8.3)
[2024-05-23 14:09] LABS: Troponin I High Sensitivity < 2.3 pg/ml (0-14)
[2024-05-23] MEDS: OPTIRAY 320 100ml IV ONE (14:25)
--- NOTE | 2024-05-23 14:47 | CT Scan Report ---
CT abd pelvis IV con only CLINICAL HISTORY: anterior abd incision drainage TECHNIQUE: Helical axial images of the abdomen and pelvis were obtained and displayed. Automated dose lowering techniques and/or adjustment according to patient size were utilized for this exam. This e xam was performed with intravenous contrast. CT DOSE: 856.63 mGy.cm COMPARISON: Comparison is made to CT abdomen pelvis before FINDINGS: Lower chest: No acute abnormality. Liver: Unremarkable. No focal lesions are seen. Gallbladder and biliary tree: No calcified gallstones. Normal caliber wall. No intra- or extrahepatic biliary ductal dilation. Pancreas: Unremarkable, no focal lesions. Spleen: Unremarkable. Adrenals: Unremarkable. Kidneys and ureters: Unremarkable. Bladder: Unremarkable. Reproductive organs: Left ovarian cyst is seen. Bowel: Postoperative changes of colectomy with right lower quadrant ostomy. Lymph nodes Retroperitoneal: Unremarkable. Pelvic: Unremarkable. Mesenteric: Unremarkable. Peritoneum: Normal. Vessels: Unremarkable. Abdominal wall: Left abdominal wall drain is seen. Right perianal soft tissue stranding is seen witho ut definite drainable fluid collection. Bones: Degenerative changes in the visualized spine. IMPRESSION: Right perirenal soft tissue stranding is again, possibly a fistula/abscess but with no large drainabl e abscess. Postsurgical changes of colectomy and ostomy formation with a left abdominal wall drain. ACT 112: Negative or not required by law. Electronically signed by: Rufino Donahue M.D. 05/23/2024 2:45 PM
[2024-05-23 14:55] LABS: Bilirubin Direct 0.1 mg/dl (0-0.2); Magnesium 1.7 mg/dl (1.7-2.4); Potassium 3.4 mmol/L (3.5-5.1)
[2024-05-23] MEDS: cefTRIAXone SODIUM 2,000 MG/50 ML BAG IV STA (17:07)
--- NOTE | 2024-05-23 17:27 | History & Physical Report ---
Date of Service May 23, 2024 Assessment & Plan (1) Abdominal infection: Plan: Ongoing abdominal infection x 3 weeks Patient has short gut and does not do well on p.o. antibiotics; sent in for IV antibiotics Leukocytosis 11.54 on arrival with intra-abdominal; afebrile A/P CT without drainable fluid Wound culture ordered, pending Rocephin 2000 mg IV q24h Has done well on this despite listed PCN allergy Vancomycin 1250 mg IV q12h Acetaminophen as needed for pain/fever Dilaudid IV q4h as needed for breakthrough pain A.m. CBC, BMP, PTT, mag (2) Sepsis: Plan: Abdominal source; reported fever at home, leukocytosis, and hypotensive in the ED Lactate and PCT WNL Blood cultures drawn NSS 500 mL + Plasma-Lyte 1000 mL given in the ED to meet 30cc/kg today for ideal body weight (3) Crohn's disease of colon with fistula: Plan: Patient is on chronic steroids Will increase prednisone 10 mg p.o. --> 20mg p.o. daily due to stress Continue lansoprazole to help protect stomach lining (4) Lower back pain: Plan: Patient reports it feels like someone "punched in the back" Right CVA tenderness, and concern for kidneys; unclear if secondary to abdominal infection Renal function okay on arrival UA ordered, pending Antibiotics (as above) (5) History of MRSA infection: Plan: Vancomycin (above) Given purulent drainage from abdominal site, will add on contact precautions for now Follow wound culture (6) History of DVT (deep vein thrombosis): Plan: Continue fondaparinux (7) Ileostomy status: Plan: Daily wound/ostomy care (8) H/O colectomy: Plan Disposition: Admit to PCU telemetry Full code Regular diet VTE PX: Continue fondaparinux History of Present Illness Chief Complaint: Infection, abdominal pain Primary Care Provider: SARAY Pascal Elsie is a pleasant 38-year-old female with PMH of DVT, colectomy s/p ileostomy status, endometriosis, MRSA infection, iron deficiency anemia, Crohn's disease with fistula, and severe protein calorie malnutrition. She presented on 05/23 for an ongoing abdominal infection x 3 weeks. History of short gut, and she reports she does not do well on oral antibiotics; she called [facility], who recommended she come in for IV antibiotics. Patient reports she started to have purulent drainage from her wound site 2 weeks ago. She has been applying cream to abdomen, which was recommended by home nursing; however she forgets what the cream is called; and is supposed to make it dry out and protect her skin. Patient reports periumbilical abdominal pain which she rates 7/10 at present, and 10/10 at worst. She has not been taking pain medication for it. The pain radiates to her right lower back, and down her right leg. She reports that the pain in her stomach is sharp, stabbing, however the pain in her right lower back feels like someone "punched her in the back". The pain has been so bad at times that she has vomited. No hemoptysis. She reports she had a fever of 101.2 F at home; took children's Tylenol, because this was the only formulation available; she is okay to take p.o. Tylenol. No recent change in diet. She denies smoking, tobacco use, or recent alcohol use. Patient did not take her regular morning medications today; she has been on prednisone for an extended period of time; she was previously on 70 mg but has been weaning down. She takes fondaparinux for history of DVT in the left leg. Despite PCN allergy, patient reports she has taken amoxicillin orally before without concerns; she had 1 instance of IV PCN when she developed red rash in throat swelling and was given Benadryl, but this was around the time of other medications and she is unsure if it is a true penicillin allergy; despite this she reports she has done well on Rocephin in the past. Patient is hypotensive at 95/68, and bradypneic 11 RPM. ED Course: Vancomycin 1250 mg IV Ceftriaxone 2000 mg IV NSS 500 mL IV Zofran 4 mg IV Dilaudid 0.5 mg IV ROS: Patient endorses fevers, chills, night-sweats, VO, abdominal pain, nausea/vomiting (which patient attributes to pain), lower back pain, and swelling in legs. Patient denies dizziness, lightheadedness, changes in vision, chest pain, SOB, cough, hemoptysis, burning with urination, dysuria, or blood in urine or colostomy, Allergies Allergy/AdvReac Type Severity Reaction Status Date / Time [facility] Allergy Severe Anaphylaxis Verified 03/12/24 17:30 aspirin Allergy Severe ANAPHYLAXIS Verified 03/12/24 17:30 bee venom protein (honey bee) Allergy Severe Anaphylaxis Verified 03/12/24 17:30 infliximab Allergy Severe ANAPHYLAXIS Verified 03/12/24 17:30 ketorolac [From Toradol] Allergy Severe Swelling Verified 03/12/24 17:30 of Lip/Tongue/Throat NSAIDS (Non-Steroidal Allergy Severe THROAT Verified 03/12/24 17:30 Anti-Inflamma SWELLING Penicillins Allergy Severe Anaphylaxis/FULL Verified 03/12/24 17:30 BODY RASH Sulfa (Sulfonamide Allergy Severe throat Verified 03/12/24 17:30 Antibiotics) swelling azathioprine AdvReac Intermediate MIGRAINE Verified 03/12/24 17:30 Home Medications Medication Instructions Recorded Confirmed Type epinephrine 0.3 mg/0.3 mL 0.3 mg IM Q4H PRN Allergic Reaction 08/26/22 05/23/24 History injection, auto-injector buprenorphine HCl 8 mg sublingual 8 mg sublingual BID 10/02/23 05/23/24 History tablet lansoprazole 30 mg delayed 30 mg PO DAILY 03/12/24 05/23/24 History release,disintegrating tablet fondaparinux 2.5 mg/0.5 mL 2.5 mg subcut Q24H 05/23/24 05/23/24 History subcutaneous solution syringe prednisone 20 mg tablet 10 mg PO DAILY 05/23/24 05/23/24 History Past Med/Surg History Problem List (Updated 01/11/24 @ 00:11 by Chasidy Giraldo) Lower back pain Abdominal infection Bilateral flank pain (Acute) Postoperative abdominal pain (Acute) Anemia B12 deficiency Chest pressure Adnexal cyst Back pain Adrenal cyst Crohn's disease of colon with fistula History of DVT (deep vein thrombosis) Severe protein-calorie malnutrition ARIANNE (acute kidney injury) (Acute) Acute cellulitis (Acute) Sepsis (Acute) FTT (failure to thrive) in adult Acute hypotension (Acute) Shortness of breath (Acute) Acute dehydration (Acute) Hypomagnesemia (Acute) Microcytic anemia Hypocalcemia Hypoglycemia Lesion of ovary Abdominal pain (Acute) UTI (urinary tract infection) (Acute) Acute hypokalemia (Acute) Metabolic acidosis (Acute) Ileostomy status Iron deficiency anemia (Acute) History of MRSA infection (Chronic) "per records" Endometriosis (Chronic) H/O colectomy (Chronic) "total colectomy with ileoanal anastomosis 03/2006" Medical History (Updated 05/23/24 @ 18:13 by Kiran Cunningham PA-C) Chronic pain Enterocutaneous fistula Severe anemia Protein calorie malnutrition Small bowel obstruction Rheumatoid arthritis Surgical History (Updated 01/11/24 @ 00:11 by Chasidy Giraldo) History of rectal surgery "hundreds of fistula surgeries" S/P exploratory laparotomy endometriosis H/O resection of large bowel multiple resections and clean outs Family History Other Blood clot in vein Social History Smoking Status: Never smoker Tobacco Type: E-cigarettes / Vaping Second Hand Exposure: No; Hx Alcohol Use: No Hx Substance Use: No Preferred Language: Occitan Communication Ability: Effective Pharmacy Delivery Driver Required: No Beliefs That Will Affect Care: None Current Living Situation: Family Current Living Situation Comment: Lives at home with daughter Feels Safe at Home: Yes Assistive Devices: Walker and Other Review of Systems Review of Systems: See HPI above Physical Exam Physical Exam: General: no acute distress; pleasant affect; non-toxic appearing; well- nourished; cooperative; SpO2 97% on RA HEENT: normocephalic, atraumatic; no scleral icterus; PERRLA; vision and hearing grossly intact Neck: supple; no lymphadenopathy; trachea midline Skin: warm, dry without signs of tenting; no cyanosis; no rashes, bruising, lesions, or erythema noted CV: chest wall NTP; RRR; S1/S2 normal; no murmurs/rubs/gallops; pulses intact and symmetric at radial, DP, and PT Lungs: no acute respiratory distress; symmetrical chest wall expansion; clear breath sounds across all lung maldonado w/o adventitious sounds; no wheezing ABD: Erythema and purulent drainage from the drain site periumbilically; periumbilical TTP; colostomy without acute drainage or signs of infection; left flank TTP: BS present; no rebound/guarding; no distention Back: Positive CVA tenderness (R>L) MSK: no tics or fasciculations; no edema noted in the LEs b/l, nonerythematous Neuro: A&Ox3; normal mood and affect; fluent speech; no focal deficits; patient reports diminished sensation on the right leg when compared to the left assessed via light touch Results & Data Results & Data Vital Signs (Past 12 Hours) Vital Signs Temp Pulse Resp BP Pulse Ox O2 Del Method 05/23/24 17:18 74 11 L 95/68 L 97 05/23/24 17:02 78 05/23/24 15:00 79 18 05/23/24 14:00 82 13 112/80 99 05/23/24 14:00 100 Room Air 05/23/24 13:30 105/75 05/23/24 13:12 97 H 05/23/24 13:00 92 H 14 108/72 05/23/24 12:33 36.6 C 120 H 18 124/85 99 Room Air Laboratory Results Abnormal lab results 05/23/24 05/23/24 Range/Units 12:55 14:02 WBC 11.54 H (4.8-10.8) K/ul MCHC 30.8 L (32.0-36.0) g/dL RDW Std Deviation 47.3 H (36.4-46.3) fL RDW Coeff of [place] 15.6 H (11.5-14.5) % Neut # (Auto) 9.96 H (1.40-6.50) K/uL Lymph # (Auto) 0.94 L (1.20-3.40) K/uL Potassium 3.4 L (3.5-5.1) mmol/L Diagnostic Findings Abdomen/Pelvis CT 05/23/24 13:42 CT abd pelvis IV con only CLINICAL HISTORY: anterior abd incision drainage TECHNIQUE: Helical axial images of the abdomen and pelvis were obtained and displayed. Automated dose lowering techniques and/or adjustment according to patient size were utilized for this exam. This exam was performed with intravenous contrast. CT DOSE: 856.63 mGy.cm COMPARISON: Comparison is made to CT abdomen pelvis before FINDINGS: Lower chest: No acute abnormality. Liver: Unremarkable. No focal lesions are seen. Gallbladder and biliary tree: No calcified gallstones. Normal caliber wall. No intra- or extrahepatic biliary ductal dilation. Pancreas: Unremarkable, no focal lesions. Spleen: Unremarkable. Adrenals: Unremarkable. Kidneys and ureters: Unremarkable. Bladder: Unremarkable. Reproductive organs: Left ovarian cyst is seen. Bowel: Postoperative changes of colectomy with right lower quadrant ostomy. Lymph nodes Retroperitoneal: Unremarkable. Pelvic: Unremarkable. Mesenteric: Unremarkable. Peritoneum: Normal. Vessels: Unremarkable. Abdominal wall: Left abdominal wall drain is seen. Right perianal soft tissue stranding is seen without definite drainable fluid collection. Bones: Degenerative changes in the visualized spine. IMPRESSION: Right perirenal soft tissue stranding is again, possibly a fistula/abscess but with no large drainable abscess. Postsurgical changes of colectomy and ostomy formation with a left abdominal wall drain. ACT 112: Negative or not required by law. Electronically signed by: Rufino Donahue M.D. 05/23/2024 2:45 PM Code Status & VTE Plan Code Status Full code VTE Prophylaxis Plan VTE Prophylaxis will be ordered: Yes Supervising Physician Co-Signing Physician Notes Patient seen and examined, chart reviewed, case discussed with Kiran Cunningham PA-C and I agree with the assessment and plan as above except as otherwise noted Labs and images reviewed 38-year-old female with a past medical history of Crohn's with fistula, ileostomy, iron deficiency anemia who presents with right abdominal wall drain site infection without drainable abscess, and who was oral antibiotic research limited due to short gut syndrome. She is recommended for admission and IV antibiotics. Past cultures reviewed, agree with admission on Ezekiel patient tends to be with low pressures at baseline, does present with hypotension, source of infection, leukocytosis. Given this we will add an additional 1 L bolus to bring up to sepsis IBW recommendations. Blood cultures have been ordered. Seen at the bedside. She reports that she has had continued discharge from her drain site and when the pain started to spread into her flank she came in for assessment for antibiotics. She has not been on any p.o. or IV antibiotics in the last 2 weeks since the drainage has increased. Abdomen is without rebound/guarding. There is erythema and purulent appearing discharge around her drain site. Wound culture collected and sent. Ostomy bag is in place, seal is compromised by drainage with underlying skin irritation. Ostomy care ordered. Hypomagnesemic, hypokalemic with poor absorption. IV potassium and magnesium repletion ordered. Agree with above. PG Care Time/CCT Total # of Minutes Spent Total Time Spent with Patient: Total time spent is greater than 50% in coordination of care (as documented) at patient's floor/unit and/or counseling patient: C[place] [address] INT INP/OBS CARE MIN Patient Type Established History Comprehensive Exam Comprehensive Medical Decision Making High Complexity Diagnoses Abdominal infection K65.9 Sepsis A41.9 Sepsis acute organ dysfunction status: unspecified Sepsis type: sepsis due to unspecified organism Crohn's disease of colon with fistula K50.113 Lower back pain M54.50 History of MRSA infection Z86.14 History of DVT (deep vein thrombosis) Z86.718 Ileostomy status Z93.2 H/O colectomy Z90.49 (2) Sepsis Sepsis acute organ dysfunction status: unspecified Sepsis type: sepsis due to unspecified organism Qualified Code(s): A41.9 - Sepsis, unspecified organism
[2024-05-23] MEDS: POTASSIUM CHLORIDE / WTR 10 MEQ/100 ML PLCT IV SCH (18:08)
[2024-05-23] MEDS: MAGNESIUM SULFATE / D5W 1 GM/100 ML BAG IV ONE (18:08)
[2024-05-23] MEDS: VANCOMYCIN HCL 1,250 MG in SODIUM CHLORIDE 0.9% 250 ML IV STA (18:08)
[2024-05-23] MEDS: predniSONE 10 MG TABLET PO STA (18:21)
[2024-05-23] MEDS: LANSOPRAZOLE 30 MG SOLTAB PO STA (18:22)
[2024-05-23 18:59] LABS: Partial Thromboplastin Ratio 0.9; Partial Thromboplastin Time 23 Seconds (21-31)
[2024-05-23] MEDS: PLASMA-LYTE A 1,000 ML IV ONE (19:51)
[2024-05-23] MEDS ORDERED: HYDROmorphone INJ 0.5 MG/0.5 ML SYR IV PRN (21:38)
[2024-05-23] MEDS ORDERED: VANCOMYCIN CONSULT ACTIVE PRN (21:38)
[2024-05-23] MEDS ORDERED: EPINEPHrine INJ 1 MG/ML AMP IM PRN (22:33)
[2024-05-23] MEDS: HYDROmorphone INJ 1 MG/ML SYRINGE IV PRN (22:33)
[2024-05-23] MEDS: FONDAPARINUX 2.5 MG/0.5 ML SYR SQ SCH (23:17)
[2024-05-23] MEDS: buprenorphine HCL 8 MG SUBL SL SCH (23:22)
[2024-05-24 00:10] LABS: Appearance Urine Clear (Clear); Bilirubin Urine Negative (Negative); Blood Urine Negative (Negative); Color Urine Yellow; Glucose Urine UA Negative (Negative); Ketones Urine Negative (Negative); Leukocyte Esterase Urine Negative (Negative); Nitrite Urine Negative (Negative); Protein Urine Negative (Negative); Specific Gravity Urine 1.013 (1.000-1.030); Urobilinogen Urine Negative (Negative)
[2024-05-24] MEDS: VANCOMYCIN HCL 750 MG in SODIUM CHLORIDE 0.9% 250 ML IV SCH (03:51)
[2024-05-24] MEDS ORDERED: VANCOMYCIN HCL 750 MG in SODIUM CHLORIDE 0.9% 500 ML IV SCH (06:00)
[2024-05-24 07:16] LABS: Basophils # (auto) 0.02 K/uL (0.00-0.20); Basophils % (auto) 0.3 %; Eosinophils # (auto) 0.04 K/uL (0.00-0.50); Eosinophils % (auto) 0.6 %; Hematocrit (blood only) 34.5 % (37.0-47.0); Hemoglobin 10.3 g/dl (12.0-16.0); Immature Granulocytes # (auto) 0.04 K/uL (0.01-0.20); Immature Granulocytes % (auto) 0.6 %; Lymphocytes # (auto) 1.14 K/uL (1.20-3.40); Lymphocytes % (auto) 16.9 %; Mean Corpuscular Hemoglobin 25.1 pg (25.0-34.0); Mean Corpuscular Hgb Conc 29.9 g/dL (32.0-36.0); Mean Corpuscular Volume 83.9 fL (80.0-100.0); Mean Platelet Volume 10.1 fL (9.4-12.4); Monocytes # (auto) 0.42 K/uL (0.11-0.59); Monocytes % (auto) 6.2 %; Neutrophils # (auto) 5.09 K/uL (1.40-6.50); Neutrophils % (auto) 75.4 %; Platelet Count 261 K/uL (130-400); RDW Coefficient of Variation 15.2 % (11.5-14.5); RDW Standard Deviation 46.5 fL (36.4-46.3); Red Blood Count 4.11 M/uL (4.20-5.40); White Blood Count 6.75 K/ul (4.8-10.8)
[2024-05-24 07:39] LABS: Partial Thromboplastin Ratio 0.9; Partial Thromboplastin Time 24 Seconds (21-31)
[2024-05-24 07:41] LABS: BUN Creatinine Ratio 15.1 (10-20); Calcium 8.7 mg/dl (8.6-10.3); Creatinine Clr Calc Pharmacy 68.8 ml/min; Est GFR (African American) 97.9 ml/min; Est GFR (Non-African American) 84.5 ml/min; Magnesium 2.2 mg/dl (1.7-2.4); Potassium 3.9 mmol/L (3.5-5.1)
[2024-05-24] MEDS: LANSOPRAZOLE 30 MG SOLTAB PO SCH (08:54)
[2024-05-24] MEDS: predniSONE 20 MG TAB PO SCH (08:54)
[2024-05-24] MEDS: ACETAMINOPHEN 325 MG TAB PO PRN (08:55)
--- NOTE | 2024-05-24 10:30 | Pharmacy Report ---
Pharmacy PK ABX Note - Date of Service May 24, 2024 - Assessment and Plan Assessment * 38 year old F receiving ceftriaxone and vancomycin for treatment of surgical site infection w purulent drainage. * History of MRSA, short gut, colectomy * Pertinent microbiologic data includes: blood cultures and abdomen cultures pending. Plan Vancomycin * Loading dose: 1250 mg IV x 1 * Maintenance dose: 750 mg IV every 12 hours * Regimen is predicted to achieve target AUC/HU of 400-600 mg/L.hr * Random level ordered for: 05/25 @ 1000 Pharmacy will continue to follow and will adjust dose/frequency as necessary. Thank you. Pharmacy has transitioned to AUC monitoring for vancomycin. AUC/HU is the preferred PK/PD target and is associated with decreased risk of nephrotoxicity compared to traditional trough targets.
--- NOTE | 2024-05-24 13:48 | Hospitalist Progress Note ---
Date of Service May 24, 2024 Assessment & Plan (1) Abdominal infection: Plan: Ongoing abdominal infection x 3 weeks Patient has short gut and does not do well on p.o. antibiotics; sent in for IV antibiotics - skin and soft tissue, staph or strep high probability, Gram stain shows gram- positive cocciwas admitted on vancomycin and ceftriaxonehold ceftriaxone for now continue vancomycin pending further growth check MRSA nares (2) Sepsis: Plan: appears to have improved. Initially was fluid bolused and chronic prednisone was increased from 10 mg to 20no clear need for ongoing fluid boluses, reduce steroids back to her home dosing of 10 mg (3) Crohn's disease of colon with fistula: Plan: on chronic steroids. Discussed CT findings with question of some perirectal fat strandingshe denies any new symptoms with this. Nothing on CT that appears clearly evident of fistula or abscessshe is expecting telehealth follow-up with her [facility] inflammatory bowel disease team this coming weekwe both agreed that it would be most prudent to currently follow with watchful waiting, and then to discuss further with her [facility] team (4) Lower back pain: Plan: appears to be almost entirely biomechanical. She does note some degree of leg issue that seems to be causing the tight pelvic musculature that seems to be causing the low back pain. Notes that she does not really have a PCP that she follows with. Discussed that with her back pain appearing to be heavily biomechanical she would do well to follow-up with one of our DO family physicians in the community who could look after from a primary care standpoint as well as to work on her somatic dysfunction and try to evaluate for root cause. She likes this plan. Acutely we discussed utilizing magnesium IV (she noted that she gets itchy with itholding off), we discussed utilizing benzodiazepines as a muscle relaxant (she expressed concern about drug interaction with her Subutex and opted to not proceed with this line of treatment), and we discussed Voltaren gel (but then on review of her med list she had what sounded to be rather significant reactions to fairly similar medicationshold off on that). Ambulation/movement, outpatient follow-up. (5) History of MRSA infection: Plan: Vancomycin (above) Follow wound culture (6) History of DVT (deep vein thrombosis): Plan: Continue fondaparinux (7) Ileostomy status: Plan: Daily wound/ostomy care (8) H/O colectomy: Plan Given her short gut syndrome and inability to really absorb oral antibiotics, but given that the abdominal infection appears to be improving fairly quickly, likely hospital stay of several more days Admission and Anticipated Discharge Date Admission Date: May 23, 2024 Subjective ongoing belly redness and drainage, but seems to be less than before. Low back pain that has been going on for quite a while. Does have some perirectal symptoms, but nothing seems to be worsening, no clear fistula that she knows of. Review of Systems Review of Systems: All systems reviewed & are unremarkable except as noted in HPI & below Physical Exam Physical Exam: In general she is awake and alert pleasant no distress. HEENT normocephalic atraumatic mucous membranes moist. Midline abdominal incision with wound with draina dull degree of surrounding erythema and seems to be somewhat tender, does have exudative drainage. Musculoskeletal shows right greater than left paraspinal hypertonicity that is fairly tender, as well as bilateral pelvic musculature that is high tone, tender in the region of piriformis. Neuro without focal deficits Results & Data Results & Data Vital Signs (Past 12 Hours) Vital Signs Temp Pulse Resp BP Pulse Ox O2 Del Method 05/24/24 11:57 97.7 F 99 H 18 131/85 98 Room Air 05/24/24 07:52 97.9 F 85 15 94/73 L 99 Room Air 05/24/24 03:16 97.9 F 72 17 107/73 99 Room Air PG Care Time/CCT Total # of Minutes Spent Total Time Spent with Patient: Total time spent is greater than 50% in coordination of care (as documented) at patient's floor/unit and/or counseling patient: Coding Level of Care Code 69993 SUB INP/OBS CARE 3/50MIN Diagnoses Abdominal infection K65.9 Sepsis A41.9 Sepsis acute organ dysfunction status: unspecified Sepsis type: sepsis due to unspecified organism Crohn's disease of colon with fistula K50.113 Lower back pain M54.50 History of MRSA infection Z86.14 History of DVT (deep vein thrombosis) Z86.718 Ileostomy status Z93.2 H/O colectomy Z90.49 (2) Sepsis Sepsis acute organ dysfunction status: unspecified Sepsis type: sepsis due to unspecified organism Qualified Code(s): A41.9 - Sepsis, unspecified organism
[2024-05-24] MEDS ORDERED: cefTRIAXone SODIUM 2,000 MG/50 ML BAG IV SCH (17:00)
--- NOTE | 2024-05-25 04:12 | Communication Note ---
Date of Service: May 25, 2024 Was notified that patient was experiencing chest pressure, no SOB. Vitals stable. EKG obtained, no acute ST changes noted. Went to bedside, heart RRR, lungs CTAB. Ordered troponin which was negative, CMP unrevealing. Ordered dose of Pepcid to try due to possibility of reflux symptoms, patient agreeable to plan. Resident Activity Tracking Resident Involvement: Resident Care Provided Care Provided: Adult [facility]
[2024-05-25] MEDS: FAMOTIDINE 20MG IV PUSH 20 MG/5 ML SYR IV STA (04:30)
[2024-05-25 04:59] LABS: Basophils # (auto) 0.02 K/uL (0.00-0.20); Basophils % (auto) 0.4 %; Eosinophils # (auto) 0.06 K/uL (0.00-0.50); Eosinophils % (auto) 1.1 %; Hematocrit (blood only) 33.6 % (37.0-47.0); Hemoglobin 10.1 g/dl (12.0-16.0); Immature Granulocytes # (auto) 0.02 K/uL (0.01-0.20); Immature Granulocytes % (auto) 0.4 %; Lymphocytes # (auto) 1.09 K/uL (1.20-3.40); Lymphocytes % (auto) 19.4 %; Mean Corpuscular Hemoglobin 25.2 pg (25.0-34.0); Mean Corpuscular Hgb Conc 30.1 g/dL (32.0-36.0); Mean Corpuscular Volume 83.8 fL (80.0-100.0); Mean Platelet Volume 9.9 fL (9.4-12.4); Monocytes # (auto) 0.51 K/uL (0.11-0.59); Monocytes % (auto) 9.1 %; Neutrophils # (auto) 3.91 K/uL (1.40-6.50); Neutrophils % (auto) 69.6 %; Platelet Count 240 K/uL (130-400); RDW Coefficient of Variation 15.1 % (11.5-14.5); RDW Standard Deviation 46.5 fL (36.4-46.3); Red Blood Count 4.01 M/uL (4.20-5.40); White Blood Count 5.61 K/ul (4.8-10.8)
[2024-05-25 05:10] LABS: Alanine Aminotransferase 39 U/L (7-52); Albumin Globulin Ratio 1.4 (0.9-2); Albumin Level 3.7 gm/dl (3.4-5.0); Alkaline Phosphatase 85 U/L (34-104); Anion Gap 8 (3-11); Aspartate Aminotransferase 27 U/L (13-39); BUN Creatinine Ratio 10.5 (10-20); Bilirubin,Total 0.4 mg/dl (0.2-1.0); Blood Urea Nitrogen 9 mg/dl (6-23); Carbon Dioxide 26 mmol/L (21-32); Chloride 101 mmol/L (98-107); Creatinine Clr Calc Pharmacy 68.8 ml/min; Est GFR (African American) 97.9 ml/min; Est GFR (Non-African American) 84.5 ml/min; Globulin 2.7 gm/dl (2.5-4.0); Glucose 89 mg/dl (70-99(Fasting)); Magnesium 1.7 mg/dl (1.7-2.4); Potassium 3.5 mmol/L (3.5-5.1); Sodium 135 mmol/L (136-145); Total Protein 6.4 gm/dl (6.0-8.3)
[2024-05-25 05:16] LABS: Troponin I High Sensitivity < 2.3 pg/ml (0-14)
--- NOTE | 2024-05-25 06:52 | Hospitalist Progress Note ---
Date of Service May 25, 2024 Assessment & Plan (1) Abdominal infection: Plan: Ongoing abdominal infection x 3 weeks with wound culture shows GBS, not MRSA. Patient has short gut and does not do well on p.o. antibiotics. Pt has anaphylaxis reaction to penicillin - Pt is on IV vancomycin 750mg, q12h. - Consulted pharmacy regarding switch of abx to PO clindamycin, advised to await sensitivities prior to changing abx. (2) Sepsis: Plan: Appears resolved as patient is currently afebrile, respiratory rate and heart rate stable and WBC 5.61. No longer on IV fluids - Will continue to monitor vitals, CBC (3) Crohn's disease of colon with fistula: Plan: Patient has history of Crohn's disease with history of colectomy and ileostomy. On this admission, CT findings with question of some perirectal fat stranding. She denies any new symptoms with this. Nothing on CT that appears clearly evident of fistula or abscess. - Pt has telehealth follow-up with her [facility] inflammatory bowel disease team this coming week. Pt to discuss further with her [facility] team - Continue home does of steroids 10mg prednisone (4) Lower back pain: Plan: Appears to be biomechanical in origin. - Continue with Tylenol and hydromorphone 1 or 0.5mg for pain - Will encourage outpatient follow up with a PCP who can perform OMT to reduce pain upon D/C from hospital. (5) History of MRSA infection: Plan: MRSA not found in would culture. Awaiting blood cultures. Nares were also negative for MRSA on this admission. - Follow blood culture (6) History of DVT (deep vein thrombosis): Plan: History of DVT in left leg. No current symptoms of DVT. - Continue fondaparinux - Monitor for signs of DVT (7) Chest tightness: Plan: Reoccurring chest tightness with reported SOB and posterior neck pain that resolves on it own. Pt is not in acute distress and without noted SOB. ECG demonstrated no ST changes at this time. - Pt has lansoprazole 30mg for acid reflux - Will continue to monitor (8) Ileostomy status: Plan: Daily wound/ostomy care (9) H/O colectomy: Plan Admission and Anticipated Discharge Date Admission Date: May 23, 2024 Supervising Physician Co-Signing Physician Notes Attending Physician Supervision Note: I independently interviewed and examined the patient and verified the silverio history and physical, reviewed labs and image studies and agree with findings a nd care plan noted above. Abdominal wound infection with history of short gut syndrome - -Continue IV antibiotics -Follow culture -Pain control Sepsis -resolved. Off stress dose steroids Crohn's disease -continue prednisone 10 mg History of DVT -on fondaparinux. Subjective Pt is a 38 yo female with history of Crohns disease with fistula, colectomy, s/p ileostomy, hx of DVT in left leg, hx of MRSA who presented to ED with 3 week history of ongoing belly redness and drainage from incision sites. This morning, pt reports she is noting less drainage from her incision sites, but an increase in abdominal pain. She also reported having chest tightness overnight. She reports SOB, posterior neck pain and tightness, and lightheadedness with her chest tightness. Denies palpitations and syncope. She has had previous episodes that resolve on their own. Physical Exam Physical Exam: Constitutional: A & O x 3, no acute distress Respiratory: Lungs clear to ascultation bilaterally. No SOB or labored breathing noted Cardiovascular: RRR, no murmur, no edema Gastrointestinal (Abdomen): Percussion/Palpation: + abdomen tender and abdomen soft 2 incisions at L anterior abdomen with s erous drainage notes from L> midline incision. Tender and redness between incision sites. No other tenderness notes with palpation. Results & Data Results & Data Vital Signs (Past 12 Hours) Vital Signs Temp Pulse Resp BP Pulse Ox Pulse Ox O2 Del Method 05/25/24 03:05 36.8 C 81 18 132/89 96 Room Air 05/24/24 22:38 36.8 C 82 18 132/82 100 Room Air 05/24/24 21:38 95 05/24/24 19:24 36.9 C 76 18 99/59 L 95 Room Air O2 Del Method 05/25/24 03:05 05/24/24 22:38 05/24/24 21:38 Room Air 05/24/24 19:24 Laboratory Results 05/25/24 05/25/24 05/24/24 Range/Units 09:55 04:13 Unknown WBC 5.61 (4.8-10.8) K/ul RBC 4.01 L (4.20-5.40) M/uL Hgb 10.1 L (12.0-16.0) g/dl Hct 33.6 L (37.0-47.0) % MCV 83.8 (80.0-100.0) fL MCH 25.2 (25.0-34.0) pg MCHC 30.1 L (32.0-36.0) g/dL RDW Std Deviation 46.5 H (36.4-46.3) fL RDW Coeff of [place] 15.1 H (11.5-14.5) % Plt Count 240 (130-400) K/uL MPV 9.9 (9.4-12.4) fL Immature Gran % (Auto) 0.4 % Neut % (Auto) 69.6 % Lymph % (Auto) 19.4 % [place] % (Auto) 9.1 % Eos % (Auto) 1.1 % Baso % (Auto) 0.4 % Neut # (Auto) 3.91 (1.40-6.50) K/uL Lymph # (Auto) 1.09 L (1.20-3.40) K/uL [place] # (Auto) 0.51 (0.11-0.59) K/uL Eos # (Auto) 0.06 (0.00-0.50) K/uL Baso # (Auto) 0.02 (0.00-0.20) K/uL Immature Gran # (Auto) 0.02 (0.01-0.20) K/uL Sodium 135 L (136-145) mmol/L Potassium 3.5 (3.5-5.1) mmol/L Chloride 101 (98-107) mmol/L Carbon Dioxide 26 (21-32) mmol/L Anion Gap 8 (3-11) BUN 9 (6-23) mg/dl Creatinine 0.86 (0.6-1.2) mg/dl Est Cr Clr Drug Dosing 68.8 ml/min Est GFR ( Amer) 97.9 ml/min Est GFR (Non-Af Amer) 84.5 ml/min BUN/Creatinine Ratio 10.5 (10-20) Glucose 89 (70-99(Fasting)) mg/dl Calcium 9.0 (8.6-10.3) mg/dl Magnesium 1.7 (1.7-2.4) mg/dl Total Bilirubin 0.4 (0.2-1.0) mg/dl AST 27 (13-39) U/L ALT 39 (7-52) U/L Alkaline Phosphatase 85 (34-104) U/L Troponin I High Sens < 2.3 (0-14) pg/ml Total Protein 6.4 (6.0-8.3) gm/dl Albumin 3.7 (3.4-5.0) gm/dl Globulin 2.7 (2.5-4.0) gm/dl Albumin/Globulin Ratio 1.4 (0.9-2) Nasal Screen MRSA (PCR) Negative (Negative) Random Vancomycin Pending (2) Sepsis Sepsis acute organ dysfunction status: unspecified Sepsis type: sepsis due to unspecified organism Qualified Code(s): A41.9 - Sepsis, unspecified organism
[2024-05-25] MEDS: predniSONE 10 MG TABLET PO SCH (08:23)
--- NOTE | 2024-05-25 11:40 | Pharmacy Report ---
Pharmacy PK ABX Note - Date of Service May 25, 2024 - Assessment and Plan Assessment * 38 year old F receiving ceftriaxone and vancomycin for treatment of surgical site infection w purulent drainage. * History of MRSA, short gut, colectomy * Pertinent microbiologic data includes: blood cultures and abdomen cultures pending. 05/25: Abdominal culture growing staph species and group B beta strep today. WBC normalized. Plan Vancomycin * Current regimen: 750 mg IV every 12 hours * Random level obtained 05/25/24 resulted as 16.4 mcg/mL. This is predicted to achieve target AUC/HU of 400-600 mg/L.hr * Predicted AUC at steady state: 462 mg/L.hr * Continue 750 mg IV every 12 hours * Will repeat level in the next 48-72 hours if therapy is continued and/or change in patient clinical status Pharmacy will continue to follow and will adjust dose/frequency as necessary. Thank you. Pharmacy has transitioned to AUC monitoring for vancomycin. AUC/UH is the preferred PK/PD target and is associated with decreased risk of nephrotoxicity compared to traditional trough targets.
[2024-05-25 19:30] VITALS: TEMP 98.1
[2024-05-26 06:35] LABS: Basophils # (auto) 0.02 K/uL (0.00-0.20); Basophils % (auto) 0.3 %; Eosinophils # (auto) 0.07 K/uL (0.00-0.50); Eosinophils % (auto) 1.2 %; Hematocrit (blood only) 34.3 % (37.0-47.0); Hemoglobin 10.3 g/dl (12.0-16.0); Immature Granulocytes # (auto) 0.03 K/uL (0.01-0.20); Immature Granulocytes % (auto) 0.5 %; Lymphocytes # (auto) 1.39 K/uL (1.20-3.40); Lymphocytes % (auto) 23.2 %; Mean Corpuscular Hemoglobin 24.9 pg (25.0-34.0); Mean Corpuscular Volume 83.1 fL (80.0-100.0); Monocytes # (auto) 0.36 K/uL (0.11-0.59); Neutrophils # (auto) 4.12 K/uL (1.40-6.50); Neutrophils % (auto) 68.8 %; Platelet Count 252 K/uL (130-400); RDW Coefficient of Variation 15.3 % (11.5-14.5); RDW Standard Deviation 46.5 fL (36.4-46.3); Red Blood Count 4.13 M/uL (4.20-5.40); White Blood Count 5.99 K/ul (4.8-10.8)
--- NOTE | 2024-05-26 06:35 | Hospitalist Progress Note ---
Date of Service May 26, 2024 Assessment & Plan (1) Abdominal infection: Plan: Ongoing abdominal infection x 3 weeks with wound culture shows GBS, not MRSA. Patient has short gut and does not do well on p.o. antibiotics. Pt has anaphylaxis reaction to penicillin - Pt is on IV vancomycin 750mg, q12h. - Consulted pharmacy regarding switch of abx to PO clindamycin, advised to await sensitivities prior to changing abx. (2) Sepsis: Plan: Appears resolved as patient is currently afebrile, respiratory rate and heart rate stable and WBC 5.61. No longer on IV fluids - Will continue to monitor vitals, CBC (3) Crohn's disease of colon with fistula: Plan: Patient has history of Crohn's disease with history of colectomy and ileostomy. On this admission, CT findings with question of some perirectal fat stranding. She denies any new symptoms with this. Nothing on CT that appears clearly evident of fistula or abscess. - Pt has telehealth follow-up with her [facility] inflammatory bowel disease team this coming week. Pt to discuss further with her [facility] team - Continue home does of steroids 10mg prednisone (4) Lower back pain: Plan: Appears to be biomechanical in origin. - Continue with Tylenol and hydromorphone 1 or 0.5mg for pain - Will encourage outpatient follow up with a PCP who can perform OMT to reduce pain upon D/C from hospital. (5) History of MRSA infection: Plan: MRSA not found in would culture. Awaiting blood cultures. Nares were also negative for MRSA on this admission. - Follow blood culture (6) History of DVT (deep vein thrombosis): Plan: History of DVT in left leg. No current symptoms of DVT. - Continue fondaparinux - Monitor for signs of DVT (7) Chest tightness: Plan: Reoccurring chest tightness with reported SOB and posterior neck pain that resolves on it own. Pt is not in acute distress and without noted SOB. ECG demonstrated no ST changes at this time. - Pt has lansoprazole 30mg for acid reflux - Will continue to monitor (8) Ileostomy status: Plan: Daily wound/ostomy care (9) H/O colectomy: Plan Admission and Anticipated Discharge Date Admission Date: May 23, 2024 Subjective Pt is a 38 yo female with history of Crohns disease with fistula, colectomy, s/p ileostomy, hx of DVT in left leg, hx of MRSA who presented to ED with 3 week history of ongoing belly redness and drainage from incision sites. This morning, pt reports she is noting less drainage from her incision sites, but an increase in abdominal pain. She also reported having chest tightness overnight. She reports SOB, posterior neck pain and tightness, and lightheadedness with her chest tightness. Denies palpitations and syncope. She has had previous episodes that resolve on their own. Review of Systems 2 Review of Systems: See HPI above Physical Exam Physical Exam: Cardiovascular: RRR, no murmur, no edema Gastrointestinal (Abdomen): Percussion/Palpation: + abdomen tender and abdomen soft Results & Data Results & Data Vital Signs (Past 12 Hours) Vital Signs Temp Pulse Pulse Resp BP Pulse Ox O2 Del Method 05/26/24 03:38 36.7 C 63 18 119/84 99 Room Air 05/25/24 23:06 36.7 C 69 18 111/76 97 Room Air 05/25/24 23:00 73 05/25/24 19:30 36.7 C 73 18 95/65 L 98 Room Air (2) Sepsis Sepsis acute organ dysfunction status: unspecified Sepsis type: sepsis due to unspecified organism Qualified Code(s): A41.9 - Sepsis, unspecified organism
[2024-05-26 06:55] LABS: Creatinine Clr Calc Pharmacy 82.1 ml/min; Est GFR (African American) 121.4 ml/min; Est GFR (Non-African American) 104.8 ml/min; Potassium 3.9 mmol/L (3.5-5.1)
--- NOTE | 2024-05-26 06:57 | Electrocardiogram Report ---
Test Reason : Blood Pressure : / mmHG Vent. Rate : 070 BPM Atrial Rate : 070 BPM P-R Int : 168 ms QRS Dur : 066 ms QT Int : 398 ms P-R-T Axes : 028 004 018 degrees QTc Int : 429 ms Normal sinus rhythm Septal infarct (cited on or before 07-DEC-2023) Abnormal ECG When compared with ECG of 12-MAR-2024 15:24, Vent. rate has decreased BY 48 BPM Confirmed by Gurwinder Joy ([id number]) on 05/26/2024 6:57:00 AM Referred By: REFERRED SELF Confirmed By:Gurwinder Joy
--- NOTE | 2024-05-26 07:36 | Discharge Summary ---
Date of Service May 26, 2024 Admission HPI Per Admitting Provider Elsie is a pleasant 38-year-old female with PMH of DVT, colectomy s/p ileostomy status, endometriosis, MRSA infection, iron deficiency anemia, Crohn's disease with fistula, and severe protein calorie malnutrition. She presented on 05/23 for an ongoing abdominal infection x 3 weeks. History of short gut, and she reports she does not do well on oral antibiotics; she called [facility], who recommended she come in for IV antibiotics. Patient reports she started to have purulent drainage from her wound site 2 weeks ago. She has been applying cream to abdomen, which was recommended by home nursing; however she forgets what the cream is called; and is supposed to make it dry out and protect her skin. Patient reports periumbilical abdominal pain which she rates 7/10 at present, and 10/10 at worst. She has not been taking pain medication for it. The pain radiates to her right lower back, and down her right leg. She reports that the pain in her stomach is sharp, stabbing, however the pain in her right lower back feels like someone "punched her in the back". The pain has been so bad at times that she has vomited. No hemoptysis. She reports she had a fever of 101.2 F at home; took children's Tylenol, because this was the only formulation available; she is okay to take p.o. Tylenol. No recent change in diet. She denies smoking, tobacco use, or recent alcohol use. Patient did not take her regular morning medications today; she has been on prednisone for an extended period of time; she was previously on 70 mg but has been weaning down. She takes fondaparinux for history of DVT in the left leg. Despite PCN allergy, patient reports she has taken amoxicillin orally before without concerns; she had 1 instance of IV PCN when she developed red rash in throat swelling and was given Benadryl, but this was around the time of other medications and she is unsure if it is a true penicillin allergy; despite this she reports she has done well on Rocephin in the past. Patient is hypotensive at 95/68, and bradypneic 11 RPM. ED Course: Vancomycin 1250 mg IV Ceftriaxone 2000 mg IV NSS 500 mL IV Zofran 4 mg IV Dilaudid 0.5 mg IV ROS: Patient endorses fevers, chills, night-sweats, VO, abdominal pain, nausea/vomiting (which patient attributes to pain), lower back pain, and swelling in legs. Patient denies dizziness, lightheadedness, changes in vision, chest pain, SOB, cough, hemoptysis, burning with urination, dysuria, or blood in urine or colostomy, Principal Diagnosis Abdominal wound infection Discharge Exam Constitutional well developed; no acute distress Respiratory normal respiratory effort, lungs clear to auscultation Cardiovascular RRR, no murmur, no edema Gastrointestinal (Abdomen) Percussion/Palpation: + abdomen tender and abdomen soft Skin Incisions at L abdomen are dry with grecia drain in place. Redness continues around incision closest to midline. Psychiatric A+Ox3, euthymic affect Discharge Data Allergies Allergy/AdvReac Type Severity Reaction Status Date / Time adalimumab [From Humira] Allergy Severe Anaphylaxis Verified 03/12/24 17:30 aspirin Allergy Severe ANAPHYLAXIS Verified 03/12/24 17:30 bee venom protein (honey bee) Allergy Severe Anaphylaxis Verified 03/12/24 17:30 infliximab Allergy Severe ANAPHYLAXIS Verified 03/12/24 17:30 ketorolac [From Toradol] Allergy Severe Swelling Verified 03/12/24 17:30 of Lip/Tongue/Throat NSAIDS (Non-Steroidal Allergy Severe THROAT Verified 03/12/24 17:30 Anti-Inflamma SWELLING Penicillins Allergy Severe Anaphylaxis/FULL Verified 03/12/24 17:30 BODY RASH Sulfa (Sulfonamide Allergy Severe throat Verified 03/12/24 17:30 Antibiotics) swelling azathioprine AdvReac Intermediate MIGRAINE Verified 03/12/24 17:30 Consultations 05/23/24 17:53 ED Decision to Admit Stat Ordered Studies 05/23/24 13:42 CT Abd and Pelvis [CT abd pelvis IV con only] Stat Hospital Course (1) Abdominal infection: Ongoing abdominal infection x 3 weeks with wound culture shows GBS, not MRSA. Patient has short gut and does not do well on p.o. antibiotics. Pt has anaphylaxis reaction to penicillin - Pt was on IV vancomycin 750mg, q12h. - Consulted pharmacy regarding switch of abx to PO clindamycin 450mg suspension, TID x 4 days. - Recommended to follow up with air export logistics manager in outpatient for assessment of penicillin allergy (2) Sepsis: Appears resolved No longer on IV fluids - Will continue to monitor vitals, CBC (3) Crohn's disease of colon with fistula: Patient has history of Crohn's disease with history of colectomy and ileostomy. On this admission, CT findings with question of some perirectal fat stranding. She denies any new symptoms with this. Nothing on CT that appears clearly evident of fistula or abscess. - Pt has telehealth follow-up with her [facility] inflammatory bowel disease team this coming week. Pt to discuss further with her [facility] team - Continue home does of steroids 10mg prednisone (4) Lower back pain: Appears to be biomechanical in origin. - Continue with Tylenol and hydromorphone 1 or 0.5mg for pain - Will encourage outpatient follow up with a PCP who can perform OMT to reduce pain upon D/C from hospital. (5) History of MRSA infection: MRSA not found in would culture. Awaiting blood cultures. Nares were also negative for MRSA on this admission. - Follow blood culture (6) History of DVT (deep vein thrombosis): History of DVT in left leg. No current symptoms of DVT. - Continue fondaparinux - Monitor for signs of DVT (7) Chest tightness: Reoccurring chest tightness with reported SOB and posterior neck pain that resolves on it own. Pt is not in acute distress and without noted SOB. ECG demonstrated no ST changes at this time. - Pt has lansoprazole 30mg for acid reflux - Will continue to monitor (8) Ileostomy status: Daily wound/ostomy care (9) H/O colectomy: Total Time Total Time Spent Total Time Spent (In Minutes): Refer to attending physician attestation Discharge Plan Discharge Items Patient Disposition: Home - Self-Care Reason For Visit: ABDOMINAL INFECTION Discharge Diagnosis: Abdominal wound infection Activity: Resume your previous activity Non-emergency contact: Primary Care Provider Call non-emergency contact if: your symptoms worsen, your temperature is above 101.5, your wound has increased redness and your wound has increased drainage Follow-up/Referrals: Robb Zhang MD [Physician] - (Penicillin allergy? ) Katie Okeefe CRNP [Primary Care Provider] - (patient has already made follow up appointment with her PCP per nurse.) Diet: Regular Addtl Attending Provider Instructions: You were admitted to the hospital for [abdominal wound infection_]. You were treated with [IV vancomycin_]. A discharge summary will be sent to your primary care physician to ensure continuity of care. Please bring this discharge summary with you to your next office appointment so that your provider can review it at that time. Follow-up appointments: * [Make a follow-up appointment with your PCP within the next week. It is very important that you follow up with them shortly after discharge from the hospital.] Medications: Your medication list has been reviewed and reconciled upon discharge to ensure accuracy and continuity of care. An updated list of all your medications is included with your hospital discharge paperwork. Please review this list closely, and make note of any changes. * We sent a new medication called Clindamycin to your pharmacy. Take Clindamycin ( 450 mg) [suspension] 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 [for 4 days. * If you have any issues filling these prescriptions, please call [phone] and ask to leave a message for Dr. Antonio. * Take your medications as instructed; do not skip a dose of your medicines. Make sure all of your doctors know every medicine you are taking (including [id number] medicines, vitamins, and supplements). Call your primary care provider before taking any new medicines (including over- the-counter medicines, vitamins, and supplements), because some of these may interact with your current medications, or may make your symptoms worse. Tell your primary care provider if you cannot afford your medications. CONTACT YOUR PRIMARY CARE PROVIDER if you experience any of the following: * Worsening of symptoms * Fever, chills, or fatigue * Difficulty following your treatment plan, or difficulty taking medications CALL 911 OR GO TO THE EMERGENCY DEPARTMENT if you experience any of the following: * Sudden, severe abdominal pain or nausea/vomiting * Severe chest pain, or chest pain that radiates (moves) to your jaw or arm * Sudden, severe shortness of breath or difficulty breathing Thank you for allowing us to participate in your care. Pending Studies at Discharge: No Stand-Alone Forms: My [employer], Smoking Cessation Medications and DC Order Prescriptions: New clindamycin HCl 150 mg capsule 450 mg PO TID Qty: 36 0RF Continued epinephrine 0.3 mg/0.3 mL Auto-Injector 0.3 mg IM Q4H PRN (Reason: Allergic Reaction) buprenorphine HCl 8 mg tablet, sublingual 8 mg SUBLINGUAL BID prednisone 20 mg tablet 10 mg PO DAILY Rx Instructions: per patient she does 10 mg instead of 20 mg daily fondaparinux 2.5 mg/0.5 mL syringe 2.5 mg subcut Q24H lansoprazole 30 mg tablet,disintegrat, delay rel 30 mg PO DAILY Rx Instructions: dissolve 1 tablet under tongue 30 min to 1 hour prior to meals Discharge Orders: Discharge Order (Routine); Ordered 05/26/24 Ordered By: Deann Antonio Admission Data Admit Date/Time: 05/23/24 18:03 Attending Provider: Cordelia Baldwin Admit Provider: Barrie Marquez Primary Care Provider: Katie Okeefe Other Providers: Barrie Marquez Other Interventions: Discharge Summary Assessment (RN) Last Done: 05/26/24 13:57 Supervising Physician Co-Signing Physician Notes Attending Physician Supervision Note: I independently interviewed and examined the patient and verified the silverio history and physical, reviewed labs and image studies and agree with findings and care plan noted above. Abdominal wound infection with history of short gut syndrome - -Received IV antibiotics - vancomycin. Culture showed group B strep and MSSA. -d/t penicillin allergy - home on liquid formulation of clindamycin to finish the course. Sepsis -resolved. Weaned Off stress dose steroids Crohn's disease -continue prednisone 10 mg History of DVT -on fondaparinux.
[2024-05-26 11:48] VITALS: BP 108/75; PULSE 92; RESP 22; O2SAT 97
== END 2024-05-26 14:12 | disposition home or self-care (01) | DRG 872 ==
LOC: ED 12:32 → INTOOBSV 18:03 → SUATTDRO 18:03 → 2E 18:03

== ENCOUNTER 2024-09-12 12:34 | Inpatient (IN) ==
[2024-09-12 13:19] LABS: Basophils # (auto) 0.01 K/uL (0.00-0.20); Basophils % (auto) 0.2 %; Eosinophils # (auto) 0.12 K/uL (0.00-0.50); Hematocrit (blood only) 35.1 % (37.0-47.0); Hemoglobin 10.6 g/dl (12.0-16.0); Immature Granulocytes # (auto) 0.02 K/uL (0.01-0.20); Immature Granulocytes % (auto) 0.3 %; Lymphocytes # (auto) 1.13 K/uL (1.20-3.40); Lymphocytes % (auto) 18.8 %; Mean Corpuscular Hemoglobin 23.3 pg (25.0-34.0); Mean Corpuscular Hgb Conc 30.2 g/dL (32.0-36.0); Mean Corpuscular Volume 77.1 fL (80.0-100.0); Mean Platelet Volume 10.2 fL (9.4-12.4); Monocytes # (auto) 0.36 K/uL (0.11-0.59); Neutrophils # (auto) 4.37 K/uL (1.40-6.50); Neutrophils % (auto) 72.7 %; Platelet Count 296 K/uL (130-400); RDW Coefficient of Variation 17.1 % (11.5-14.5); RDW Standard Deviation 46.9 fL (36.4-46.3); Red Blood Count 4.55 M/uL (4.20-5.40); White Blood Count 6.01 K/ul (4.8-10.8)
--- NOTE | 2024-09-12 13:25 | XRay Report ---
XR chest 1V not portable CLINICAL HISTORY: Chest pain, nonspecific COMPARISON STUDY: Chest radiograph and chest CT March 12, 2024. FINDINGS: Lung volumes are normal. There is no consolidation to suggest pneumonia. Linear density mag ng the left heart border favors atelectasis. There is no pneumothorax or pleural effusion. Cardiac si ze is normal. Mediastinal contours are normal. There is no evidence for pulmonary edema. IMPRESSION: No acute cardiopulmonary findings. ACT 112: Negative or not required by law. Electronically signed by: Car Gong M.D. 09/12/2024 1:23 PM
[2024-09-12 13:33] LABS: Albumin Globulin Ratio 1.2 (0.9-2); BUN Creatinine Ratio 10.8 (10-20); Bilirubin,Total 0.4 mg/dl (0.2-1.0); Calcium 10.1 mg/dl (8.6-10.3); Globulin 3.3 gm/dl (2.5-4.0); Potassium 3.1 mmol/L (3.5-5.1); Total Protein 7.3 gm/dl (6.0-8.3)
[2024-09-12 13:39] LABS: Troponin I High Sensitivity 2.5 pg/ml (0-14)
[2024-09-12 13:50] LABS: D Dimer 480 ug/L FEU (0-500); Partial Thromboplastin Ratio 0.8; Partial Thromboplastin Time 22 Seconds (21-31); Prothrombin Time 10.9 Seconds (9.0-12.0)
[2024-09-12] MEDS ORDERED: CEFEPIME 2,000 MG in SYRINGE 7.5 ML IV STA (14:32)
[2024-09-12 14:55] LABS: Magnesium 1.5 mg/dl (1.7-2.4)
--- NOTE | 2024-09-12 15:00 | Emergency Department Note ---
Impression & Plan Precordial chest pain, Acute dehydration, Hypomagnesemia, Cellulitis, Hypokalemia, Failure of outpatient treatment, Immunocompromised ED Provider Note NAME: JANAY GIL AGE: 38 SEX: F : 1985 ARRIVES VIA: Ambulance INFORMANT: [Patient] ED PROVIDER(S): [Olivier Chavez MD] CHIEF COMPLAINT: Cardiac assessment, illness HISTORY OF PRESENT ILLNESS: The patient is a 38-year-old female who is on immunosuppressive medications. She has a colostomy. The patient states that 3 weeks ago, she cut her left upper anterior leg. 2 weeks ago, there was concern for infection and she was placed on Keflex. About a week into the Keflex, she was itchy and the Keflex was stopped. She has now been on doxycycline for the last 4 days. Despite the antibiotics, the leg is still reddened, she is still having chills and sweats. Of note, the patient has noticed the pills of antibiotic in her colostomy bag, she does not think that she has enough gut to absorb the medication. The patient has noticed decreased urine output, she is concerned that she may have a UTI or be dehydrated. Additionally, the patient has a history of DVT/PE, she has noticed some heaviness across the chest the last few days and some mild shortness of breath. She is concerned that she may have developed another PE. The patient has been out of her Lovenox injections for around a week. The patient's outpatient urgent care center sent her to the ER today for a workup and admission. They feel she needs IV antibiotics to clear her leg infection. PMHx/PSHx/Social Hx: See Below PHYSICAL EXAM: GENERAL: Patient is in no acute distress. HEENT: No acute trauma, normocephalic atraumatic, mucous membranes moist, no nasal congestion. NECK: No stridor, no adenopathy, no meningismus, trachea is midline. LUNGS: Clear to auscultation bilaterally, no wheeze, no rhonchi, breath sounds equal. HEART: Without murmurs gallops or rubs, regular rate and rhythm. ABDOMEN: Soft, nontender, no peritonitis. There is a colostomy with liquidy stool in the right lower quadrant. EXTREMITIES: No cyanosis. She has dry skin to the lower legs bilaterally. She has a open lesion with some surrounding erythema and some discharge to the left anterior proximal leg. A culture was obtained. NEUROLOGIC: Oriented x 3, no acute motor or sensory deficits, no focal weakness. SKIN: No jaundice, no diaphoresis. DIFFERENTIAL DIAGNOSIS: Failed outpatient management, cellulitis, immunocompromise, UTI, PE or DVT, dehydration, electrolyte imbalance, among others. EMERGENCY DEPARTMENT PROCEDURES: MEDICAL DECISION MAKING: There is no leukocytosis. The patient is anemic however, this is a chronic finding. There was a normal platelet count. No coagulopathy. D-dimer was not elevated making PE less likely. Renal panel testing shows a lower potassium, no renal failure. Magnesium is low 1.5. No worrisome liver enzyme elevation. ECG showed a sinus rhythm, no obvious ST elevation. Cardiac enzyme testing x 1 was not consistent with acute cardiac injury. Urinalysis show potential infection, urine culture is pending. Chest x-ray did not show pneumonia or CHF. On exam, the patient did have an open wound to the left lower extremity with some surrounding erythema. A culture was obtained. The patient has been on antibiotics for 2 weeks and is still suffering from an infection in the left lower leg. She has been noticing the antibiotic tablets in her colostomy bag. At this point, I do think admission with IV antibiotic therapy is indicated. In the ED, she was given IV ceftriaxone and IV vancomycin as antibiotic coverage. She was given IV potassium and IV magnesium. She received a liter of IV saline for hydration. A chest CT was done because of her chest pressure complaints and her history of previous clotting, no PE found. No focal pneumonia. The patient was reassured by the negative chest CT. She understands the reason for a hospital stay given the persistent cellulitis of the left lower extremity--she is somewhat immunocompromised. I did speak with case management, the on-call hospitalist was consulted. Prior/Outside records/notes reviewed: Today's EMS notes describing her presentation and transport to this hospital. ECG per my interpretation: Indication was chest heaviness/pain. The ECG shows a normal sinus rhythm with a rate of 94. There is a potential old septal infarct. There is some nonspecific ST change. No ST elevation. There is some baseline artifact. No PVCs. The QTc is 460. Continuous Cardiac Monitoring per my interpretation: An order was placed for continuous cardiac monitoring. The monitor shows a rate of 89 with normal sinus rhythm. Imaging/x-ray results per my interpretation: Chest x-ray does not show mediastinal widening, pneumonia or pneumothorax. Chronic Medical/Social conditions affecting care: Immunocompromise. Care/Management discussed with: Case management, the on-call hospitalist. Level of care consideration(s): After review of the information above and other included data: --I believe the patient requires escalation of care to admission DISPOSITION: Admission Past Med/Surg History Problem List (Updated 09/12/24 @ 15:54 by Olivier Chavez MD) Immunocompromised (Acute) Failure of outpatient treatment (Acute) Hypokalemia (Acute) Cellulitis (Acute) Hypomagnesemia (Acute) Acute dehydration (Acute) Precordial chest pain (Acute) Abdominal infection Anemia B12 deficiency Chest pressure Adnexal cyst Back pain Adrenal cyst Crohn's disease of colon with fistula Severe protein-calorie malnutrition ARIANNE (acute kidney injury) (Acute) Acute cellulitis (Acute) FTT (failure to thrive) in adult Acute hypotension (Acute) Shortness of breath (Acute) Acute dehydration (Acute) Hypomagnesemia (Acute) Microcytic anemia Hypocalcemia Hypoglycemia Lesion of ovary Abdominal pain (Acute) UTI (urinary tract infection) (Acute) Acute hypokalemia (Acute) Metabolic acidosis (Acute) Ileostomy status Iron deficiency anemia (Acute) Endometriosis (Chronic) Medical History Chest tightness Lower back pain Bilateral flank pain Postoperative abdominal pain Sepsis History of DVT (deep vein thrombosis) History of MRSA infection "per records" Chronic pain Enterocutaneous fistula Severe anemia Protein calorie malnutrition Small bowel obstruction Rheumatoid arthritis Surgical History H/O colectomy "total colectomy with ileoanal anastomosis 03/2006" History of rectal surgery "hundreds of fistula surgeries" S/P exploratory laparotomy endometriosis H/O resection of large bowel multiple resections and clean outs Family History Other Blood clot in vein Social History Smoking Status: Never smoker Tobacco Type: E-cigarettes / Vaping Second Hand Exposure: No; Hx Alcohol Use: No Hx Substance Use: No Preferred Language: Portuguese Communication Ability: Effective Bee Tender Required: No Beliefs That Will Affect Care: None Current Living Situation: Family Current Living Situation Comment: Lives at home with daughter Feels Safe at Home: Yes Assistive Devices: Cane and Walker Allergies Allergies Allergy/AdvReac Type Severity Reaction Status Date / Time adalimumab [From Humira] Allergy Severe Anaphylaxis Verified 03/12/24 17:30 aspirin Allergy Severe ANAPHYLAXIS Verified 03/12/24 17:30 bee venom protein (honey bee) Allergy Severe Anaphylaxis Verified 03/12/24 17:30 infliximab Allergy Severe ANAPHYLAXIS Verified 03/12/24 17:30 ketorolac [From Toradol] Allergy Severe Swelling Verified 03/12/24 17:30 of Lip/Tongue/Throat NSAIDS (Non-Steroidal Allergy Severe THROAT Verified 03/12/24 17:30 Anti-Inflamma SWELLING Penicillins Allergy Severe Anaphylaxis/FULL Verified 03/12/24 17:30 BODY RASH Sulfa (Sulfonamide Allergy Severe throat Verified 03/12/24 17:30 Antibiotics) swelling azathioprine AdvReac Intermediate MIGRAINE Verified 03/12/24 17:30 Home Meds Home Medications Medication Instructions Recorded Confirmed epinephrine 0.3 mg/0.3 mL 0.3 mg IM Q4H PRN Allergic Reaction 08/26/22 05/23/24 injection, auto-injector buprenorphine HCl 8 mg sublingual 8 mg sublingual BID 10/02/23 09/12/24 tablet lansoprazole 30 mg delayed 30 mg PO DAILY 03/12/24 09/12/24 release,disintegrating tablet fondaparinux 2.5 mg/0.5 mL 2.5 mg subcut Q24H 05/23/24 05/23/24 subcutaneous solution syringe prednisone 10 mg tablet 5 mg PO DAILY 09/12/24 09/12/24 Previous Rx's Medication Instructions Recorded clindamycin HCl 150 mg capsule 450 mg (3 x 150 mg) PO TID #36 caps 05/26/24 Results & Data (ED) Vital Signs Vital Signs - 24 hr 09/12/24 12:34 09/12/24 12:54 09/12/24 12:55 Temperature 36.8 C Temperature Source Oral Pulse Rate 95 H 85 Pulse Rate [Right Finger] 88 Pulse Rhythm Pulse Rhythm [Right Finger] Respiratory Rate 14 14 Respiratory Effort / Characteristics Non-Labored Non-Labored Spontaneous Respiratory Depth Normal Respiratory Pattern Regular Blood Pressure 124/87 Blood Pressure [Right Arm] 123/79 Blood Pressure Mean 99 Blood Pressure Mean [Right Arm] 93 Pulse Oximetry 100 100 Oxygen Delivery Method Room Air Room Air Sepsis Recent Fever Within 48 Hours No Sepsis New/Unexplained Change in Mental Status N/A Sepsis Action Taken by Nursing No Action Required 09/12/24 13:05 09/12/24 13:05 09/12/24 14:00 Temperature Temperature Source Pulse Rate 85 Pulse Rate [Right Finger] 89 Pulse Rhythm Regular Pulse Rhythm [Right Finger] Regular Respiratory Rate 14 18 Respiratory Effort / Characteristics Non-Labored Respiratory Depth Normal Respiratory Pattern Regular Blood Pressure Blood Pressure [Right Arm] 100/74 Blood Pressure Mean Blood Pressure Mean [Right Arm] 82 Pulse Oximetry 100 100 100 Oxygen Delivery Method Room Air Room Air Room Air Sepsis Recent Fever Within 48 Hours Sepsis New/Unexplained Change in Mental Status Sepsis Action Taken by Nursing 09/12/24 15:00 Temperature Temperature Source Pulse Rate Pulse Rate [Right Finger] 81 Pulse Rhythm Pulse Rhythm [Right Finger] Respiratory Rate 16 Respiratory Effort / Characteristics Respiratory Depth Respiratory Pattern Blood Pressure Blood Pressure [Right Arm] 109/80 Blood Pressure Mean Blood Pressure Mean [Right Arm] 89 Pulse Oximetry 98 Oxygen Delivery Method Room Air Sepsis Recent Fever Within 48 Hours Sepsis New/Unexplained Change in Mental Status Sepsis Action Taken by Detention Medications Current Medication List: was personally reviewed by me Laboratory Data Attestation: I reviewed the patient's lab results. 09/12/24 12:50 09/12/24 12:50 Lab Results 09/12/24 09/12/24 Range/Units 12:50 14:56 WBC 6.01 (4.8-10.8) K/ul RBC 4.55 (4.20-5.40) M/uL Hgb 10.6 L (12.0-16.0) g/dl Hct 35.1 L (37.0-47.0) % MCV 77.1 L (80.0-100.0) fL MCH 23.3 L (25.0-34.0) pg MCHC 30.2 L (32.0-36.0) g/dL RDW Std Deviation 46.9 H (36.4-46.3) fL RDW Coeff of [place] 17.1 H (11.5-14.5) % Plt Count 296 (130-400) K/uL MPV 10.2 (9.4-12.4) fL Immature Gran % (Auto) 0.3 % Neut % (Auto) 72.7 % Lymph % (Auto) 18.8 % Bennett % (Auto) 6.0 % Eos % (Auto) 2.0 % Baso % (Auto) 0.2 % Neut # (Auto) 4.37 (1.40-6.50) K/uL Lymph # (Auto) 1.13 L (1.20-3.40) K/uL Bennett # (Auto) 0.36 (0.11-0.59) K/uL Eos # (Auto) 0.12 (0.00-0.50) K/uL Baso # (Auto) 0.01 (0.00-0.20) K/uL Immature Gran # (Auto) 0.02 (0.01-0.20) K/uL PT 10.9 (9.0-12.0) Seconds INR 1.0 (0.9-1.1) APTT 22 (21-31) Seconds PTT Ratio 0.8 D-Dimer 480 (0-500) ug/L FEU Sodium 140 (136-145) mmol/L Potassium 3.1 L (3.5-5.1) mmol/L Chloride 97 L (98-107) mmol/L Carbon Dioxide 31 (21-32) mmol/L Anion Gap 12 H (3-11) BUN 9 (6-23) mg/dl Creatinine 0.83 (0.6-1.2) mg/dl Est Cr Clr Drug Dosing 77.0 ml/min eGFR 91.34 BUN/Creatinine Ratio 10.8 (10-20) Glucose 91 (70-99(Fasting)) mg/dl Calcium 10.1 (8.6-10.3) mg/dl Magnesium 1.5 L (1.7-2.4) mg/dl Total Bilirubin 0.4 (0.2-1.0) mg/dl AST 32 (13-39) U/L ALT 35 (7-52) U/L Alkaline Phosphatase 110 H (34-104) U/L Troponin I High Sens 2.5 (0-14) pg/ml Total Protein 7.3 (6.0-8.3) gm/dl Albumin 4.0 (3.4-5.0) gm/dl Globulin 3.3 (2.5-4.0) gm/dl Albumin/Globulin Ratio 1.2 (0.9-2) Procalcitonin 0.04 (0-0.5) ng/ml Urine Color Yellow Urine Appearance Clear (Clear) Urine pH >= 9.0 H (4.5-7.5) Ur Specific Norman 1.007 (1.000-1.030) Urine Protein Negative (Negative) Urine Glucose (UA) Negative (Negative) Urine Ketones Negative (Negative) Urine Blood Negative (Negative) Urine Nitrite Negative (Negative) Urine Bilirubin Negative (Negative) Urine Urobilinogen Negative (Negative) Ur Leukocyte Esterase 2+ H (Negative) Urine WBC (Auto) 11-20 H (0-5) /hpf Urine RBC (Auto) 0-2 (0-2) /hpf U Hyaline Cast (Auto) 0-2 (0-2) /lpf U Epithel Cells (Auto) 3-5 H (0-2) /hpf Urine Bacteria (Auto) None Seen (None Seen) Administered Medications Magnesium Sulfate/Dextrose (Magnesium Sulfate / D5w) 1 gm in 100 mls @ 100 mls/hr IV NOW STA Stop: 09/12/24 16:00 Last Admin: 09/12/24 15:35 Dose: 100 mls/hr Documented By: GUMARO Discontinued Medications Sodium Chloride (Nss) 1,000 mls @ 999 mls/hr IV .Q1H1M ONE Stop: 09/12/24 15:32 Last Admin: 09/12/24 15:41 Dose: 999 mls/hr Documented By: GUMARO Ceftriaxone Sodium (Rocephin) 2,000 mg in 50 mls @ 100 mls/hr IV NOW ONE Stop: 09/12/24 15:14 Last Infusion: 09/12/24 15:41 Dose: Infused Documented By: Admin: 09/12/24 15:30 Dose: 100 mls/hr Documented By: GUMARO Potassium Chloride (K Vickey / Wtr) 10 meq in 100 mls @ 100 mls/hr IV ONE ONE; Protocol Stop: 09/12/24 15:36 Last Admin: 09/12/24 15:38 Dose: 100 mls/hr Documented By: GUMARO Ioversol (Optiray 320 125ml) 119 ml IV ONCE ONE Stop: 09/12/24 15:10 Last Admin: 09/12/24 15:10 Dose: 119 ml Documented By: EDK Imaging Data Radiologist's Impression: Chest X-Ray 09/12/24 13:05 XR chest 1V not portable CLINICAL HISTORY: Chest pain, nonspecific COMPARISON STUDY: Chest radiograph and chest CT March 12, 2024. FINDINGS: Lung volumes are normal. There is no consolidation to suggest pneumonia. Linear density along the left heart border favors atelectasis. There is no pneumothorax or pleural effusion. Cardiac size is normal. Mediastinal contours are normal. There is no evidence for pulmonary edema. IMPRESSION: No acute cardiopulmonary findings. ACT 112: Negative or not required by law. Electronically signed by: Car Gong M.D. 09/12/2024 1:23 PM Chest CTA 09/12/24 14:32 EXAM: CT Angiography Chest With Intravenous Contrast INDICATION: Chest pain and shortness of breath TECHNIQUE: Axial computed tomographic angiography images of the chest with intravenous contrast. Sagittal and coronal reformatted images were created and reviewed. This CT exam was performed using one or more of the following dose reduction techniques: automated exposure control, adjustment of the mA and/or kV according to patient size, and/or use of iterative reconstruction technique. MIP reconstructed images were created and reviewed. CONTRAST: 119ml of Optiray 320 was administered intravenously. COMPARISON: No relevant prior studies available. FINDINGS: Pulmonary arteries: No abnormality noted. No pulmonary embolism. Aorta: No acute change noted. No thoracic aortic aneurysm or dissection. Lungs and pleural spaces: There is minimal diffuse airway thickening which could be acute or chronic. There is no consolidation. No bronchiectasis, honeycombing or reticulation. Mild bilateral apical scarring noted. No pleural effusion or pneumothorax. Heart: No abnormality noted. No cardiomegaly. No significant pericardial effusion. No evidence of RV dysfunction. Bones/joints: No acute or atypical chronic changes. Soft tissues: No abnormality noted. Lymph nodes: No abnormality noted. No enlarged lymph nodes. IMPRESSION: Minimal acute and/or chronic diffuse airway thickening without pneumonia or pulmonary embolus. ACT 112: Negative or not required by law. Electronically signed by Jazmin Avila 09-12-2024 3:27 PM Discharge Plan Visit Data Chief Complaint: Cardiac Assessment Stated Complaint: CHEST PRESSURE ED Provider: Olivier Chavez Discharge Problem: Precordial chest pain, Acute dehydration, Hypomagnesemia, Cellulitis, Hypokalemia, Failure of outpatient treatment, Immunocompromised Patient Disposition: Admitted As Inpatient Condition: Fair Forms Stand Alone Forms: [facility] Prescriptions Prescriptions: No Action epinephrine 0.3 mg/0.3 mL Auto-Injector 0.3 mg IM Q4H PRN (Reason: Allergic Reaction) buprenorphine HCl 8 mg tablet, sublingual 8 mg SUBLINGUAL BID fondaparinux 2.5 mg/0.5 mL syringe 2.5 mg subcut Q24H clindamycin HCl 150 mg capsule 450 mg PO TID Qty: 36 0RF prednisone 10 mg tablet 5 mg PO DAILY lansoprazole 30 mg tablet,disintegrat, delay rel 30 mg PO DAILY Rx Instructions: dissolve 1 tablet under tongue 30 min to 1 hour prior to meal Referrals Referrals: Katie Okeefe CRNP [Primary Care Provider] - Discharge Problem: Cellulitis Qualifiers: Site of cellulitis: extremity Site of cellulitis of extremity: lower extremity Laterality: left Qualified Code(s): L03.116 - Cellulitis of left lower limb
[2024-09-12] MEDS: OPTIRAY 320 125ml IV ONE (15:10)
[2024-09-12 15:24] LABS: Appearance Urine Clear (Clear); Bacteria Urine Automated None Seen (None Seen); Bilirubin Urine Negative (Negative); Blood Urine Negative (Negative); Cast Urine Automated 0-2 /lpf (0-2); Color Urine Yellow; Glucose Urine UA Negative (Negative); Ketones Urine Negative (Negative); Leukocyte Esterase Urine 2+ (Negative); Nitrite Urine Negative (Negative); Protein Urine Negative (Negative); RBC Urine Automated 0-2 /hpf (0-2); Specific Gravity Urine 1.007 (1.000-1.030); Urobilinogen Urine Negative (Negative); pH Urine >= 9.0 (4.5-7.5)
--- NOTE | 2024-09-12 15:27 | CT Scan Report ---
EXAM: CT Angiography Chest With Intravenous Contrast INDICATION: Chest pain and shortness of breath TECHNIQUE: Axial computed tomographic angiography images of the chest with intravenous contrast. Sagittal and coronal reformatted images were created and reviewed. This CT exam was performed using one or more of the following dose reduction techniques: automated exposure control, adjustment of the mA and/or kV according to patient size, and/or use of iterative reconstruction technique. MIP reconstructed images were created and reviewed. CONTRAST: 119ml of Optiray 320 was administered intravenously. COMPARISON: No relevant prior studies available. FINDINGS: Pulmonary arteries: No abnormality noted. No pulmonary embolism. Aorta: No acute change noted. No thoracic aortic aneurysm or dissection. Lungs and pleural spaces: There is minimal diffuse airway thickening which could be acute or chronic. There is no consolidation. No bronchiectasis, honeycombing or reticulation. Mild bilateral apical scarring noted. No pleural effusion or pneumothorax. Heart: No abnormality noted. No cardiomegaly. No significant pericardial effusion. No evidence of RV dysfunction. Bones/joints: No acute or atypical chronic changes. Soft tissues: No abnormality noted. Lymph nodes: No abnormality noted. No enlarged lymph nodes. IMPRESSION: Minimal acute and/or chronic diffuse airway thickening without pneumonia or pulmonary embolus. ACT 112: Negative or not required by law. Electronically signed by Jazmin Avila 09-12-2024 3:27 PM
[2024-09-12] MEDS: cefTRIAXone SODIUM 2,000 MG/50 ML BAG IV ONE (15:30)
[2024-09-12] MEDS: MAGNESIUM SULFATE / D5W 1 GM/100 ML BAG IV STA (15:35)
[2024-09-12] MEDS: POTASSIUM CHLORIDE / WTR 10 MEQ/100 ML PLCT IV ONE (15:38)
[2024-09-12] MEDS: SODIUM CHLORIDE 0.9% 1,000 ML IV ONE (15:41)
[2024-09-12] MEDS: VANCOMYCIN 1,500 MG in D5W 500mL (Use w/ NSS Shortage) IV ONE (15:58)
--- NOTE | 2024-09-12 15:58 | History & Physical Report ---
Date of Service September 12, 2024 Assessment & Plan (1) Cellulitis: Plan: Left leg cellulitis No leukocytosis, hypotension, tachycardia, or tachypnea. She does not meet sepsis criteria on admission Has had worsening leg infection with orals limited by development of allergy to Keflex with a history of penicillin anaphylaxis, and subsequent inability to absorb doxycycline tablets.. She was able to tolerate ceftriaxone 05/2024 without allergic reaction Leg use with some purulent appearing discharge. Wound culture has been sent. Given purulent appearance has been covered with vancomycin. Borders of erythema marked with a surgical pen. Flexion extension of her knee is intact passively and actively although she does have some tightness and pain she feels radiates deep into her knee most painful over the lateral tubercle but also around into the back of her knee. Patient has already received 1 dose of contrast for chest CTA. If this is persistent and not improving consider CT with contrast of the knee 09/13. Could consider arthrocentesis as extension of the infection to the knee is within the differential; however given knee flexion and extension is intact paperless agent to move through the limited motion with most of the tightness and mild to moderate but not severe pain feel is reasonable to follow clinical progression at time of admission Continue Rocephin/vancomycin CRP added Trend white count daily Wound culture pending She is not toxic or septic on admission. Lactate and blood cultures deferred (2) Failure of outpatient treatment: Plan: Converted to IV antibiotics as above. (3) Hypokalemia: Plan: Hypomagnesemic, hypokalemic. 1 g magnesium IV ordered an additional to oral for 100 mg now and daily. 1K rider ordered in addition to 40 mEq p.o. x 1. Trend. (4) Short gut syndrome: Plan: Short gut syndrome With hypokalemia and hypomagnesemia on admission. IV repletion ordered with additional supplemental p.o. (5) History of DVT (deep vein thrombosis): Plan: Dyspnea Patient ran out of fondaparinux a week ago and has had heaviness in the chest and shortness of breath CTA is minimal airway thickening without pneumonia or PE is noted Supportive care Fondaparinux 2.5 mg daily resumed Plan Chronic stable issues: Subutex use. 8 mg twice daily continued DVT prophylaxis: On Photrexa Diet: Regular Disposition: MSO CODE STATUS: Full code History of Present Illness Primary Care Provider: SARAY Pascal Evangelina is a 38-year-old female with a past medical history of DVT, colectomy with ileostomy, iron deficiency anemia, Crohn's disease with fistula, severe malnutrition last admitted and discharged 05/26/2024 after a group B strep abdominal infection who presents today for left upper leg cellulitis. She was treated with Keflex as an outpatient however had itching and an allergic reaction was transition to doxycycline however has had progressive erythema warmth tenderness and has now developed chills and sweats. Patient's pills have passed hole into her colostomy bag and is not able to absorb these due to her short gut syndrome. Evangelina is seen at the bedside. She reports that she has had leg swelling for around 2 to 3 weeks. Pain and swelling and erythema started at a abrasion on her left anterior lower leg. She feels the discomfort and swelling has moved slightly proximal to this around her knee. She is able to flex and extend her k nee on exam but does endorse some discomfort on palpation worst over the lateral tubercle. She reports she has had some feeling of chills and sweats in the last 2 weeks. She had taken Keflex but developed itching on this and notes that she has had a penicillin allergy in the past but had also tolerated amoxicillin at 1 point. She was switched to doxycycline but the pills have passed through her undigested into her ostomy bag and she does not think she can absorb these due to her short gut syndrome. She overall feels tired and washed out. Denies abdominal pain. Denies chest pain chest pressure. She does have some shortness of breath and reports he felt very anxious as she ran out of her fondaparinux last week and was worried about forming a potential blood clot. She confirms that she takes fondaparinux 2.5 mg daily, this has been resumed. Medical History: Reviewed Medications: Reviewed Surgical History: Reviewed Family history: Reviewed Allergies: Reviewed Social History: Reviewed Code Status: Full Allergies Allergy/AdvReac Type Severity Reaction Status Date / Time adalimumab [From Humira] Allergy Severe Anaphylaxis Verified 09/12/24 15:58 aspirin Allergy Severe ANAPHYLAXIS Verified 09/12/24 15:58 bee venom protein (honey bee) Allergy Severe Anaphylaxis Verified 09/12/24 15:58 infliximab Allergy Severe ANAPHYLAXIS Verified 09/12/24 15:58 ketorolac [From Toradol] Allergy Severe Swelling Verified 09/12/24 15:58 of Lip/Tongue/Throat NSAIDS (Non-Steroidal Allergy Severe THROAT Verified 09/12/24 15:58 Anti-Inflamma SWELLING Penicillins Allergy Severe Anaphylaxis/FULL Verified 09/12/24 15:58 BODY RASH Sulfa (Sulfonamide Allergy Severe throat Verified 09/12/24 15:58 Antibiotics) swelling azathioprine AdvReac Intermediate MIGRAINE Verified 09/12/24 15:58 Home Medications Medication Instructions Recorded Confirmed Type epinephrine 0.3 mg/0.3 mL 0.3 mg IM Q4H PRN Allergic Reaction 08/26/22 09/12/24 History injection, auto-injector buprenorphine HCl 8 mg sublingual 8 mg sublingual BID 10/02/23 09/12/24 History tablet lansoprazole 30 mg delayed 30 mg PO QAM 03/12/24 09/12/24 History release,disintegrating tablet fondaparinux 2.5 mg/0.5 mL 2.5 mg subcut .EVERY 24 HOURS 09/12/24 09/12/24 History subcutaneous solution syringe prednisone 10 mg tablet 5 mg PO QAM 09/12/24 09/12/24 History Past Med/Surg History Problem List (Updated 09/12/24 @ 16:19 by Barrie Marquez MD) Short gut syndrome Immunocompromised (Acute) Failure of outpatient treatment (Acute) Hypokalemia (Acute) Cellulitis (Acute) Hypomagnesemia (Acute) Acute dehydration (Acute) Precordial chest pain (Acute) Abdominal infection Anemia B12 deficiency Chest pressure Adnexal cyst Back pain Adrenal cyst Crohn's disease of colon with fistula Severe protein-calorie malnutrition ARIANNE (acute kidney injury) (Acute) Acute cellulitis (Acute) FTT (failure to thrive) in adult Acute hypotension (Acute) Shortness of breath (Acute) Acute dehydration (Acute) Hypomagnesemia (Acute) Microcytic anemia Hypocalcemia Hypoglycemia Lesion of ovary Abdominal pain (Acute) UTI (urinary tract infection) (Acute) Acute hypokalemia (Acute) Metabolic acidosis (Acute) Ileostomy status Iron deficiency anemia (Acute) Endometriosis (Chronic) Medical History Chest tightness Lower back pain Bilateral flank pain Postoperative abdominal pain Sepsis History of DVT (deep vein thrombosis) History of MRSA infection "per records" Chronic pain Enterocutaneous fistula Severe anemia Protein calorie malnutrition Small bowel obstruction Rheumatoid arthritis Surgical History H/O colectomy "total colectomy with ileoanal anastomosis 03/2006" History of rectal surgery "hundreds of fistula surgeries" S/P exploratory laparotomy endometriosis H/O resection of large bowel multiple resections and clean outs Family History Other Blood clot in vein Social History Smoking Status: Never smoker Tobacco Type: E-cigarettes / Vaping Second Hand Exposure: No; Hx Alcohol Use: No Hx Substance Use: No Preferred Language: Nigerian Communication Ability: Effective Physical Education Instructor Required: No Beliefs That Will Affect Care: None Current Living Situation: Family Current Living Situation Comment: Lives at home with daughter Feels Safe at Home: Yes Assistive Devices: Cane and Walker Physical Exam Physical Exam: General: A&Ox3. NAD. Cooperative. HEENT: Atraumatic, normocephalic. Vision and hearing grossly intact Pulm: CTAB A&P. -wheezes, -rales, -rhonchi. Symmetrical chest rise. No increased work of breathing. No respiratory distress. Cardiac: RRR, -mrg. Radial pulses intact and symmetrical. Abdominal: Nontender, nondistended. Colostomy in place. Left lower extremity with demarcated erythema at the proximal lower leg and greatest area of tenderness overlying the lateral tubercle. Knee flexion/extens ion passively and actively is intact with some discomfort but tolerable to patient. Overlying wound distal to the tubercle is present with some purulent discharge and bleeding. No fluctuance is appreciated Results & Data Results & Data Vital Signs (Past 12 Hours) Vital Signs Temp Pulse Pulse Resp BP BP Pulse Ox 09/12/24 15:00 81 16 109/80 98 09/12/24 14:00 89 18 100/74 100 09/12/24 13:05 85 14 100 09/12/24 13:05 100 09/12/24 12:55 85 09/12/24 12:54 88 14 123/79 100 09/12/24 12:34 36.8 C 95 H 14 124/87 100 O2 Del Method 09/12/24 15:00 Room Air 09/12/24 14:00 Room Air 09/12/24 13:05 Room Air 09/12/24 13:05 Room Air 09/12/24 12:55 09/12/24 12:54 Room Air 09/12/24 12:34 Room Air PG Care Time/CCT Total # of Minutes Spent Total Time Spent with Patient: Total time spent is greater than 50% in coordination of care (as documented) at patient's floor/unit and/or counseling patient: Coding Level of Care Code 32456 INT INP/OBS CARE MIN Diagnoses Cellulitis L03.116 Laterality: left Site of cellulitis: extremity Site of cellulitis of extremity: lower extremity Failure of outpatient treatment Z78.9 Hypokalemia E87.6 Short gut syndrome K90.829 History of DVT (deep vein thrombosis) Z86.718 (1) Cellulitis Laterality: left Site of cellulitis: extremity Site of cellulitis of extremity: lower extremity Qualified Code(s): L03.116 - Cellulitis of left lower limb
[2024-09-12 16:34] LABS: Magnesium 2.1 mg/dl (1.7-2.4)
[2024-09-12 16:52] LABS: C Reactive Protein 1.58 mg/dl (0-0.5)
[2024-09-12] MEDS: PANTOprazole 40 MG/10 ML SYR IV SCH (16:56)
[2024-09-12] MEDS: MAGNESIUM OXIDE 400 MG TAB PO SCH (17:05)
[2024-09-12] MEDS: POTASSIUM CHLORIDE 20 MEQ/15 ML UDC PO STA (17:05)
[2024-09-12] MEDS: FONDAPARINUX 2.5 MG/0.5 ML SYR SQ SCH (18:31)
[2024-09-12] MEDS ORDERED: POLYETHYLENE (MIRALAX) 17 GM PACK PO PRN (19:02)
[2024-09-12] MEDS ORDERED: ACETAMINOPHEN 325 MG TAB PO PRN (19:02)
[2024-09-12] MEDS ORDERED: ONDANSETRON INJ 2 MG/ML 2 ML VIAL IV PRN (19:02)
[2024-09-12] MEDS ORDERED: VANCOMYCIN CONSULT ACTIVE PRN (19:02)
[2024-09-12] MEDS: predniSONE 5 MG TAB PO ONE (20:30)
[2024-09-12] MEDS: buprenorphine HCL 8 MG SUBL SL SCH (22:00)
[2024-09-12] MEDS: VANCOMYCIN HCL 1,000 MG in DEXTROSE 5% 250 ML IV SCH (22:00)
[2024-09-13 06:05] LABS: Basophils # (auto) 0.01 K/uL (0.00-0.20); Basophils % (auto) 0.2 %; Eosinophils % (auto) 1.5 %; Hematocrit (blood only) 36.2 % (37.0-47.0); Hemoglobin 10.5 g/dl (12.0-16.0); Immature Granulocytes # (auto) 0.03 K/uL (0.01-0.20); Immature Granulocytes % (auto) 0.5 %; Lymphocytes # (auto) 0.82 K/uL (1.20-3.40); Lymphocytes % (auto) 12.4 %; Mean Corpuscular Volume 79.4 fL (80.0-100.0); Mean Platelet Volume 9.3 fL (9.4-12.4); Monocytes # (auto) 0.26 K/uL (0.11-0.59); Monocytes % (auto) 3.9 %; Neutrophils % (auto) 81.5 %; Platelet Count 293 K/uL (130-400); RDW Coefficient of Variation 17.2 % (11.5-14.5); Red Blood Count 4.56 M/uL (4.20-5.40); White Blood Count 6.62 K/ul (4.8-10.8)
[2024-09-13 06:25] LABS: C Reactive Protein 1.3 mg/dl (0-0.5); Calcium 9.2 mg/dl (8.6-10.3); Creatinine Clr Calc Pharmacy 84.5 ml/min; Magnesium 1.9 mg/dl (1.7-2.4); Potassium 4.4 mmol/L (3.5-5.1)
[2024-09-13] MEDS: predniSONE 5 MG TAB PO SCH (08:46)
--- NOTE | 2024-09-13 09:34 | Pharmacy Report ---
Pharmacy PK ABX Note - Date of Service September 13, 2024 - Assessment and Plan Assessment 38 year old F receiving vancomycin and ceftriaxone for treatment of SSTI. Immunocompromised at baseline with failure of outpatient treatment (Keflex, doxycycline). Leg culture pending. Renal function stable. Day #2 of antimicrobial therapy. Plan Vancomycin * Loading dose: 1500 mg IV x 1 * Maintenance dose: 1250 mg IV every 12 hours * Regimen is predicted to achieve target AUC/HU of 400-600 mg/L.hr * Random level tomorrow AM Pharmacy will continue to follow and will adjust dose/frequency as necessary. Thank you. Pharmacy has transitioned to AUC monitoring for vancomycin. AUC/HU is the preferred PK/PD target and is associated with decreased risk of nephrotoxicity compared to traditional trough targets.
--- NOTE | 2024-09-13 10:00 | Hospitalist Progress Note ---
Date of Service September 13, 2024 Assessment & Plan (1) Cellulitis: Plan: Left leg cellulitis No leukocytosis, hypotension, tachycardia, or tachypnea. She does not meet sepsis criteria on admission Has had worsening leg infection with orals limited by development of allergy to Keflex with a history of penicillin anaphylaxis, and subsequent inability to absorb doxycycline tablets.. She was able to tolerate ceftriaxone 05/2024 without allergic reaction Wound on left lower extremity is improving, no discharge observed today. Wound culture pending. Given purulent appearance on initial presentation, has been covered with vancomycin. - Flexion extension of her knee is intact passively and actively although she does have some tightness and pain in the back of her knee/upper calf that she feels radiates to her posterior knee/posterior lower thigh. Feels that there is swelling within the back of the knee/upper calf and tenderness. - Patient has already received 1 dose of contrast for chest CTA. If this is persistent and not improving consider CT with contrast of the knee. Could consider arthrocentesis as extension of the infection to the knee is within the differential; however given knee flexion and extension is intact paperless agent to move through the limited motion with most of the tightness and mild to moderate but not severe pain feel is reasonable to follow clinical progression at time of admission. Given negative CTA and normal d-dimer, DVT/PE unlikely. Continue to monitor knee. Discontinue rocephin, continue vancomycin CRP added --> still elevated, but has decreased to 1.3 today Trend white count daily with CBC She is not toxic or septic on admission. Lactate and blood cultures deferred (2) Failure of outpatient treatment: Plan: Converted to IV antibiotics as above (3) Hypokalemia: Plan: Hypomagnesemic, hypokalemic. 1 g magnesium IV ordered an additional to oral for 100 mg now and daily. 1K rider ordered in addition to 40 mEq p.o. x 1. Trend. - Potassium normalized to 4.4 on 09/13, Mg now normal at 1.9 as well. - BMP morning labs (4) Short gut syndrome: Plan: chronic Short gut syndrome With hypokalemia and hypomagnesemia on admission. IV repletion ordered with additional supplemental p.o. - Potassium and Mg levels normalized as of 09/13. (5) History of DVT (deep vein thrombosis): Plan: Dyspnea Patient ran out of fondaparinux a week ago and has had heaviness in the chest and shortness of breath CTA is minimal airway thickening without pneumonia or PE is noted Supportive care Fondaparinux 2.5 mg daily resumed - D-dimer normal (480) - Continue to monitor chest pain/heaviness/shortness of breath symptoms Plan Chronic stable issues: Subutex use. 8 mg twice daily continued DVT prophylaxis: On Photrexa Diet: Regular Disposition: MSO CODE STATUS: Full code Admission and Anticipated Discharge Date Admission Date: September 12, 2024 Supervising Physician Co-Signing Physician Notes I personally examined the patient and verified all silverio points of history and exam, discussed case, and agree with decision making with Dr Fernandez and Margy Beard MS3 leg feeling better than before. Left arm pain since phlebotomy at the outside hospital. vitals noted nad L leg no erythema scab appears healing. no pallor or icterus cellulitis - did worsen on PO abx - but with short gut i harbor concerns that she may not have adequately absorbed any of it, making it hard to truly call it treatment failure. no severe sepsis/septic shock on admission - so no real need for empiric MRSA/gram negative coverage (and no noted urinary sx so no need to cover urine at this time either) - narrow to cefazolin and follow. serial exams, follow knee pain but suspect relates to soft tissue inflammation not joint infection or DVT. prior VTE - Ddimer negative, CTA negative. back on fondaparinux at proph dosing (and no clear need for treatment dosing at this time) - needs PCP//has run out of this at home and does not have current medication at home - as she gets closer to dc will need to work on setting up PCP, ensure Rx for anticoagulation/etc short gut - treatment issues due to needing parenteral route for many/most meds arm paresthesiae - suspect needlestick did irritate median nerve. time. supportive care. Kassandra Zimmerman was seen and evaluated at bedside this AM, VSS. Overnight, she endorses poor sleep due to Left leg and Left arm pain. Her LLE has improved significantly in terms of area of erythema and swelling but remains exquisitely tender to palpation and with flexion and full extension. Endorses the pain within and slightly beyond the border marked by pen, as well as the posterior portion of L knee. She notes similarly feeling symptoms have occurred in the same leg in the past when she had a DVT/PE. Additionally, her arm has been hurting ever since she had a blood draw at [facility] within a week ago prior to admission here. As soon as the needle was inserted, she endorses feeling a pop and shocklike pain radiating to her volar wrist, which spreads to her thumb, index, middle finger, and slightly in her ring finger. Reproduction of these symptoms occurs with extension of the L elbow. Her urine output has remained low, denies other UTI symptoms. She has increased her water intake while inpatient. She still experiences chest pain/chest heaviness, but does not feel it to be as frequent now. Shortness of breath is still present, but she is able to speak in full sentences in comparison to yesterday. Still feels cold sweats, denies fever. Tolerating ambulation with pain upon LE weight-bearing, tolerating diet. Denies dizziness, headache, chest pain, abdominal pain, nausea/vomiting. Review of Systems Review of Systems: As noted in HPI Physical Exam Physical Exam: General: Patient appears in no acute distress Cardiovascular: Regular rate and rhythm. No murmurs, rubs, or gallops. Respiratory: Clear to auscultation bilaterally. No rales, wheezing, or rhonchi. Abdominal: Nontender, nondistended. Colostomy in place. MSK: LLE- healing 2x2cm wound on anterior aspect of proximal tibial tubercle, present with dry scab. No discharge observed, greatest area of tenderness overlying the lateral tubercle. Knee flexion/extension passively and actively is intact with some discomfort but tolerable to patient. Slight swelling noted in the posterior knee. Tenderness to palpation of the posterior upper calf, anterior knee, b/l joint lines, popliteal region, and lower thigh. Skin: see MSK for LE findings; otherwise dry skin noted all throughout the body, particularly b/l LE which have extensive flaking but no bleeding seen Psych: Appropriate mood and affect. Neuro exam: Diminished strength and sensation in the left upper extremity (4/5) compared to the right (5/5). ROM intact, but painful. Tenderness to palpation of the antecubital fossa, small bruise is visible. Tingling, numbness, and pain reproduced in the first three digits and shocklike radiating pain to the anterior forearm on elbow extension. Results & Data Results & Data Vital Signs (Past 12 Hours) Vital Signs Temp Pulse Resp BP Pulse Ox O2 Del Method 09/13/24 07:05 36.7 C 79 16 107/74 99 Room Air 09/12/24 22:38 Room Air (1) Cellulitis Laterality: left Site of cellulitis: extremity Site of cellulitis of extremity: lower extremity Qualified Code(s): L03.116 - Cellulitis of left lower limb
[2024-09-13] MEDS: VANCOMYCIN 1,250mg in D5W 250mL (Use w/ NSS Shortage) IV SCH (10:46)
[2024-09-13] MEDS: cefTRIAXone SODIUM 2,000 MG/50 ML BAG IV SCH (14:31)
--- NOTE | 2024-09-13 16:28 | Billing Data ---
Date of Service September 13, 2024 Coding Level of Care Code 03506 SUB INP/OBS CARE MIN
[2024-09-13] MEDS ORDERED: NALOXONE HCL INJ 1 MG/ML 2ML SYR INTNAS PRN (16:54)
[2024-09-13] MEDS: MoRPHine SULFATE 2 MG/ML CARP IV STA (16:55)
[2024-09-13] MEDS: MoRPHine SULFATE 4 MG/ML 1 ML CARP\\VIAL IV STA (17:03)
[2024-09-13] MEDS ORDERED: NALOXONE HCL 0.4 MG/1 ML VIAL/CARP IV PRN (17:10)
[2024-09-13] MEDS: ceFAZolin 2000MG 2,000 MG/15 ML SYR IV SCH (17:45)
[2024-09-14] MEDS: hydrOXYzine HCl 10 MG TAB PO ONE (02:02)
[2024-09-14 06:01] LABS: Basophils # (auto) 0.02 K/uL (0.00-0.20); Basophils % (auto) 0.4 %; Eosinophils # (auto) 0.13 K/uL (0.00-0.50); Eosinophils % (auto) 2.5 %; Hematocrit (blood only) 32.6 % (37.0-47.0); Hemoglobin 9.9 g/dl (12.0-16.0); Immature Granulocytes # (auto) 0.01 K/uL (0.01-0.20); Immature Granulocytes % (auto) 0.2 %; Lymphocytes % (auto) 26.8 %; Mean Corpuscular Hemoglobin 23.5 pg (25.0-34.0); Mean Corpuscular Hgb Conc 30.4 g/dL (32.0-36.0); Mean Corpuscular Volume 77.3 fL (80.0-100.0); Mean Platelet Volume 9.7 fL (9.4-12.4); Monocytes # (auto) 0.33 K/uL (0.11-0.59); Monocytes % (auto) 6.3 %; Neutrophils # (auto) 3.34 K/uL (1.40-6.50); Neutrophils % (auto) 63.8 %; Platelet Count 318 K/uL (130-400); RDW Standard Deviation 47.4 fL (36.4-46.3); Red Blood Count 4.22 M/uL (4.20-5.40); White Blood Count 5.23 K/ul (4.8-10.8)
[2024-09-14 06:19] LABS: BUN Creatinine Ratio 14.3 (10-20); Calcium 9.5 mg/dl (8.6-10.3); Creatinine Clr Calc Pharmacy 76.8 ml/min; Potassium 3.7 mmol/L (3.5-5.1)
--- NOTE | 2024-09-14 07:21 | Hospitalist Progress Note ---
Date of Service September 14, 2024 Assessment & Plan (1) Cellulitis: Plan: Left leg cellulitis -Does not meet Sepsis criteria Left leg wound improving; no Purulent discharge anymore, No surrounding Edema. - Negative CTA and normal d-dimer, DVT/PE unlikely. Continue to monitor knee. Started on Ancef; tolerated well today; Continue Ancef - Wound swab C/S: Staph aureus sensitive to Clindamycin, Linezolid, vancomycin, daptomycin, oxacillin, TMP-SMX. (2) Failure of outpatient treatment: Plan: Converted to IV antibiotics as above (3) Hypokalemia: Plan: - Potassium normalized to 4.4----3.7 today, Mg now normal at 1.9 as well. - BMP morning labs (4) Short gut syndrome: Plan: Chronic Short gut syndrome With hypokalemia and hypomagnesemia on admission. - Potassium and Mg levels normalized as of 09/14. (5) History of DVT (deep vein thrombosis): Plan: Dyspnea Patient ran out of fondaparinux a week ago and has had heaviness in the chest and shortness of breath CTA is minimal airway thickening without pneumonia or PE is noted Supportive care Fondaparinux 2.5 mg daily resumed - D-dimer normal (480) - Continue to monitor chest pain/heaviness/shortness of breath symptoms Plan Chronic stable issues: Subutex use. 8 mg twice daily continued DVT prophylaxis: On Fondaparinux 2.5 mg Daily. Diet: Regular Disposition: MSO CODE STATUS: Full code Admission and Anticipated Discharge Date Admission Date: September 12, 2024 Supervising Physician Co-Signing Physician Notes Attending Physician Supervision Note: I independently interviewed and examined the patient and verified the silverio history and physical, reviewed labs and image studies and agree with findings and care plan noted above. left leg redness/swelling with improvement. moving around in the room without difficulty. vitals noted nad heent nc at mmm breathing unlabored no accessory muscles good effort skin no rashes no pallor or icterus neuro no focal deficits. left leg - mostly improved redness and swelling cellulitis - worsen on outpatient PO abx - likely from poor oral absorption d/t short gut - continue cefazolin. serial exams, follow knee pain - suspect relates to soft tissue inflammation not joint infection or DVT. prior VTE - Ddimer negative, CTA negative. back on fondaparinux at proph dosing - has run out of this at home - as she gets closer to dc will need to work on setting up PCP, ensure Rx for anticoagulation/etc short gut - treatment issues due to needing parenteral route for many/most meds anticipate d/c home in am. Subjective Today morning, Elsie is comfortable in bedside. She mentions he has hives and itches after her dose of Ancef yesterday; hence she refused Ancef initially. However she decided to take this AM and she is fine after morning dose. She was kind of scared as she had bouts of Anaphylaxis in past. She tolerated with Ceftriaxone before Ancef.. Her cellulitis is getting better as per her. No fever, discharge coming out. Review of Systems Review of Systems: As per HPI Physical Exam Physical Exam: Constitutional: Well appearing, No acute distress, PILCCOD: Negative HEENT: Atraumatic, Normocephalic, No conjunctival injection CVS: S1 S2 no murmur, Regular Rhythm, no LE edema Respiratory: BL equal air entry with NVBS. No rhonchi, wheezes, or crackles. No increased work of breathing. Abdominal: Nontender, nondistended. Colostomy in place. MSK and Skin : LLE- 2x2cm wound on anterior aspect tibia, present with dry scab. No surrounding erythema now. No discharge observed.Knee flexion/extension passively and actively is intact with some discomfort but tolerable to patient. Slight swelling noted in the posterior knee. Tenderness to palpation of the posterior upper calf, anterior knee, b/l joint lines, popliteal region, and lower thigh. Skin:dry skin noted all throughout the body, particularly b/l LE which have extensive flaking but no bleeding seen Psych: Appropriate mood and affect. Neuro exam: Diminished strength and sensation in the left upper extremity (4/5) compared to the right (5/5). ROM intact, but painful. Tenderness to palpation of the antecubital fossa, small bruise is visible. Tingling, numbness, and pain reproduced in the first three digits and shocklike radiating pain to the anterior forearm on elbow extension. Psych: Mood and Affect congruent, Cooperative on exam Results & Data Results & Data Vital Signs (Past 12 Hours) Vital Signs Temp Pulse Resp BP Pulse Ox O2 Del Method 09/14/24 06:53 36.5 C 72 16 93/61 L 98 Room Air 09/13/24 20:46 36.7 C 69 16 103/70 98 Room Air (1) Cellulitis Laterality: left Site of cellulitis: extremity Site of cellulitis of e xtremity: lower extremity Qualified Code(s): L03.116 - Cellulitis of left lower limb
--- NOTE | 2024-09-14 15:31 | Electrocardiogram Report ---
Test Reason : Blood Pressure : */* mmHG Vent. Rate : 94 BPM Atrial Rate : 94 BPM P-R Int : 158 ms QRS Dur : 70 ms QT Int : 368 ms P-R-T Axes : 60 14 -5 degrees QTcB Int : 460 ms Normal sinus rhythm Septal infarct (cited on or before 16-Oct-2023) Abnormal ECG When compared with ECG of 25-May-2024 03:26, T wave inversion more evident in Inferior leads Nonspecific T wave abnormality now evident in Lateral leads Confirmed by Gurwinder Joy ([id number]) on 09/14/2024 3:30:27 PM Referred By: REFERRED SELF Confirmed By: Gurwinder Joy
--- NOTE | 2024-09-15 06:52 | Hospitalist Progress Note ---
Date of Service September 15, 2024 Assessment & Plan (1) Cellulitis: Plan: Left leg cellulitis -Does not meet Sepsis criteria Left leg wound improving; no Purulent discharge anymore, No surrounding Edema. - Negative CTA and normal d-dimer, DVT/PE unlikely. - USG Doppler Left lower leg: No evidence of deep venous thrombus within the left lower extremity. Ancef: D3, Abx( inclyding Ceftriaxone and Vanco) D4 - Wound swab C/S: Staph aureus sensitive to Clindamycin, Linezolid, vancomycin, daptomycin, oxacillin, TMP-SMX. - Plan to discharge her tomorrow after completion of D5 of Abx. Her short gut makes IV over oral as route of choice for Abx for her. (2) Failure of outpatient treatment: Plan: Converted to IV antibiotics as above (3) Hypokalemia: Plan: - Potassium normalized to 4.4----3.7----> 4.0 today, Mg now normal at 1.9 as well. - BMP morning labs (4) Short gut syndrome: Plan: Chronic Short gut syndrome With hypokalemia and hypomagnesemia on admission. - Potassium and Mg levels normalized as of 09/15 (5) History of DVT (deep vein thrombosis): Plan: Patient ran out of fondaparinux a week ago and has had heaviness in the chest and shortness of breath CTA is minimal airway thickening without pneumonia or PE is noted Supportive care Fondaparinux 2.5 mg daily resumed - D-dimer normal (480) USG Doppler Left lower leg: No evidence of deep venous thrombus within the left lower extremity. - Continue to monitor chest pain/heaviness/shortness of breath symptoms Plan Chronic stable issues: Subutex use. 8 mg twice daily continued DVT prophylaxis: On Fondaparinux 2.5 mg Daily. Diet: Regular Disposition: MSO CODE STATUS: Full code Admission and Anticipated Discharge Date Admission Date: September 12, 2024 Subjective Today morning, Elsie is comfortable in bedside She is tolerating Ancef well and continues to feel better today as well. She mentions about remote H/O RTA when she had injury on her left knee and was a dvised to undergo surgery and she never opted that. She had seen PT long time ago, was better until last year, used to run some miles. Wants to go back to PT and chiropractor. She mentioned about her blood thinner ran out for some time recently and had hard time filling that out. Hence she wants to set up appointment with PCP here in [facility]. She wants to go home anytime today as she has plans with her daughter. They are moving to new home. No fever, discharge coming out. Physical Exam Physical Exam: Constitutional: Well appearing, No acute distress, PILCCOD: Negative HEENT: Atraumatic, Normocephalic, No conjunctival injection CVS: S1 S2 no murmur, Regular Rhythm, no LE edema Respiratory: BL equal air entry with NVBS. No rhonchi, wheezes, or crackles. No increased work of breathing. Abdominal: Nontender, nondistended. Colostomy in place. MSK and Skin : LLE- 2x2cm wound on anterior aspect tibia, present with dry scab. No surrounding erythema now. No discharge observed.Knee flexion/extension passively and actively is intact with some discomfort but tolerable to patient. Slight swelling noted in the posterior knee. Tenderness to palpation of the posterior upper calf, anterior knee, b/l joint lines, popliteal region, and lower thigh. Skin:dry skin noted all throughout the body, particularly b/l LE which have extensive flaking but no bleeding seen Psych: Appropriate mood and affect. Neuro exam: Diminished strength and sensation in the left upper extremity (4/5) compared to the right (5/5). ROM intact, but painful. Tenderness to palpation of the antecubital fossa, small bruise is visible. Tingling, numbness, and pain reproduced in the first three digits and shocklike radiating pain to the anterior forearm on elbow extension. Psych: Mood and Affect congruent, Cooperative on exam Results & Data Results & Data Vital Signs (Past 12 Hours) Vital Signs Temp Pulse Resp BP Pulse Ox O2 Del Method 09/14/24 19:31 36.7 C 81 16 106/74 99 Room Air Resident Activity Tracking Resident Involvement: Resident Care Provided Care Provided: Adult Hospital Medicine (1) Cellulitis Laterality: left Site of cellulitis: extremity Site of cellulitis of extremity: lower extremity Qualified Code(s): L03.116 - Cellulitis of left lower limb
[2024-09-15 07:26] VITALS: RESP 14
[2024-09-15 07:53] LABS: Basophils # (auto) 0.02 K/uL (0.00-0.20); Basophils % (auto) 0.3 %; Eosinophils # (auto) 0.14 K/uL (0.00-0.50); Eosinophils % (auto) 2.4 %; Hemoglobin 10.4 g/dl (12.0-16.0); Immature Granulocytes # (auto) 0.02 K/uL (0.01-0.20); Immature Granulocytes % (auto) 0.3 %; Lymphocytes # (auto) 1.43 K/uL (1.20-3.40); Lymphocytes % (auto) 24.4 %; Mean Corpuscular Hemoglobin 23.3 pg (25.0-34.0); Mean Corpuscular Hgb Conc 29.7 g/dL (32.0-36.0); Mean Corpuscular Volume 78.5 fL (80.0-100.0); Monocytes # (auto) 0.41 K/uL (0.11-0.59); Neutrophils # (auto) 3.84 K/uL (1.40-6.50); Neutrophils % (auto) 65.6 %; Platelet Count 327 K/uL (130-400); RDW Standard Deviation 47.8 fL (36.4-46.3); Red Blood Count 4.46 M/uL (4.20-5.40); White Blood Count 5.86 K/ul (4.8-10.8)
[2024-09-15 08:08] LABS: BUN Creatinine Ratio 22.4 (10-20); Calcium 9.6 mg/dl (8.6-10.3); Creatinine Clr Calc Pharmacy 77.8 ml/min
--- NOTE | 2024-09-15 09:01 | Ultrasound Report ---
LEFT LOWER EXTREMITY VENOUS DOPPLER CLINICAL HISTORY: Left calf pain. COMPARISON STUDY: Left lower extremity venous Doppler ultrasound March 12, 2024. TECHNIQUE: Sonography of the deep venous system of the left lower extremity was performed. Compressi on and augmentation were evaluated. FINDINGS: The left common femoral, superficial femoral and popliteal veins were compressible. Augmen tation was normal. Flow was shown within the deep calf vessels. IMPRESSION: No evidence of deep venous thrombus within the left lower extremity. ACT 112: Negative or not required by law. Electronically signed by: Car Gong M.D. 09/15/2024 8:59 AM
[2024-09-15 11:15] VITALS: PULSE 84; TEMP 97; O2SAT 98
[2024-09-15 13:43] VITALS: BP 106/74
--- NOTE | 2024-09-15 14:55 | Discharge Summary ---
Date of Service September 15, 2024 Admission HPI Per Admitting Provider Evangelina is a 38-year-old female with a past medical history of DVT, colectomy with ileostomy, iron deficiency anemia, Crohn's disease with fistula, severe malnutrition last admitted and discharged 05/26/2024 after a group B strep abdominal infection who presents today for left upper leg cellulitis. She was treated with Keflex as an outpatient however had itching and an allergic reaction was transition to doxycycline however has had progressive erythema warmth tenderness and has now developed chills and sweats. Patient's pills have passed hole into her colostomy bag and is not able to absorb these due to her s hort gut syndrome. Evangelina is seen at the bedside. She reports that she has had leg swelling for around 2 to 3 weeks. Pain and swelling and erythema started at a abrasion on her left anterior lower leg. She feels the discomfort and swelling has moved slightly proximal to this around her knee. She is able to flex and extend her knee on exam but does endorse some discomfort on palpation worst over the lateral tubercle. She reports she has had some feeling of chills and sweats in the last 2 weeks. She had taken Keflex but developed itching on this and notes that she has had a penicillin allergy in the past but had also tolerated amoxicillin at 1 point. She was switched to doxycycline but the pills have passed through her undigested into her ostomy bag and she does not think she can absorb these due to her short gut syndrome. She overall feels tired and washed out. Denies abdominal pain. Denies chest pain chest pressure. She does have some shortness of breath and reports he felt very anxious as she ran out of her fondaparinux last week and was worried about forming a potential blood clot. She confirms that she takes fondaparinux 2.5 mg daily, this has been resumed. Medical History: Reviewed Medications: Reviewed Surgical History: Reviewed Family history: Reviewed Allergies: Reviewed Social History: Reviewed Code Status: Full Admission Exam Per Admitting Provider General: A&Ox3. NAD. Cooperative. HEENT: Atraumatic, normocephalic. Vision and hearing grossly intact Pulm: CTAB A&P. -wheezes, -rales, -rhonchi. Symmetrical chest rise. No increased work of breathing. No respiratory distress. Cardiac: RRR, -mrg. Radial pulses intact and symmetrical. Abdominal: Nontender, nondistended. Colostomy in place. Left lower extremity with demarcated erythema at the proximal lower leg and greatest area of tenderness overlying the lateral tubercle. Knee flexion/extension passively and actively is intact with some discomfort but tolerable to patient. Overlying wound distal to the tubercle is present with some purulent discharge and bleeding. No fluctuance is appreciated Principal Diagnosis Cellulitis left leg Short Gut syndrome Discharge Exam Constitutional: Well appearing, No acute distress, PILCCOD: Negative HEENT: Atraumatic, Normocephalic, No conjunctival injection CVS: S1 S2 no murmur, Regular Rhythm, no LE edema Respiratory: BL equal air entry with NVBS. No rhonchi, wheezes, or crackles. No increased work of breathing. Abdominal: Nontender, nondistended. Colostomy in place. MSK and Skin : LLE- 2x2cm wound on anterior aspect tibia, present with dry scab. No surrounding erythema now. No discharge observed.Knee flexion/extension passively and actively is intact with some discomfort but tolerable to patient. Slight swelling noted in the posterior knee. Tenderness to palpation of the posterior upper calf, anterior knee, b/l joint lines, popliteal region, and lower thigh. Skin:dry skin noted all throughout the body, particularly b/l LE which have extensive flaking but no bleeding seen Psych: Appropriate mood and affect. Neuro exam: Diminished strength and sensation in the left upper extremity (4/5) compared to the right (5/5). ROM intact, but painful. Tenderness to palpation of the antecubital fossa, small bruise is visible. Tingling, numbness, and pain reproduced in the first three digits and shocklike radiating pain to the anterior forearm on elbow extension. Psych: Mood and Affect congruent, Cooperative on exam Discharge Data Allergies Allergy/AdvReac Type Severity Reaction Status Date / Time adalimumab [From Humira] Allergy Severe Anaphylaxis Verified 09/12/24 15:58 aspirin Allergy Severe ANAPHYLAXIS Verified 09/12/24 15:58 bee venom protein (honey bee) Allergy Severe Anaphylaxis Verified 09/12/24 15:58 infliximab Allergy Severe ANAPHYLAXIS Verified 09/12/24 15:58 ketorolac [From Toradol] Allergy Severe Swelling Verified 09/12/24 15:58 of Lip/Tongue/Throat NSAIDS (Non-Steroidal Allergy Severe THROAT Verified 09/12/24 15:58 Anti-Inflamma SWELLING Penicillins Allergy Severe Anaphylaxis/FULL Verified 09/12/24 15:58 BODY RASH Sulfa (Sulfonamide Allergy Severe throat Verified 09/12/24 15:58 Antibiotics) swelling azathioprine AdvReac Intermediate MIGRAINE Verified 09/12/24 15:58 Consultations 09/12/24 15:40 ED Decision to Admit Stat Ordered Studies 09/12/24 14:32 CT angio chest PE protocol Stat 09/15/24 07:25 US venous duplex leg [US venous doppler LE LT] Urgent Hospital Course (1) Cellulitis: Left leg cellulitis -Does not meet Sepsis criteria Left leg wound improving; no Purulent discharge anymore, No surrounding Edema. - Negative CTA and normal d-dimer, DVT/PE unlikely. - USG Doppler Left lower leg: No evidence of deep venous thrombus within the left lower extremity. Ancef: D3, Abx( including Ceftriaxone and Vanco) D4 today - Wound swab C/S: Staph aureus sensitive to Clindamycin, Linezolid, vancomycin, daptomycin, oxacillin, TMP-SMX. - Plan to discharge her after completion of D5 of Abx. Her short gut makes IV over oral as route of choice for Abx for her. - However patient insists on getting discharged today; cellulitis is improved. - Discussed possible options; patient agrees to completing D5 Abx with oral dose of Kflex at home tomorrow. (2) Failure of outpatient treatment: Converted to IV antibiotics as above (3) Hypokalemia: - Potassium normalized to 4.4----3.7----> 4.0 today, Mg now normal at 1.9 as well (4) Short gut syndrome: Chronic Short gut syndrome With hypokalemia and hypomagnesemia on admission. - Potassium and Mg levels normalized as of 09/15 (5) History of DVT (deep vein thrombosis): Patient ran out of fondaparinux a week ago and has had heaviness in the chest and shortness of breath CTA is minimal airway thickening without pneumonia or PE is noted Supportive care Fondaparinux 2.5 mg daily resumed - D-dimer normal (480) USG Doppler Left lower leg: No evidence of deep venous thrombus within the left lower extremity. - Continue to monitor chest pain/heaviness/shortness of breath symptoms Plan Chronic stable issues: Subutex use. 8 mg twice daily continued Total Time Total Time Spent Total Time Spent (In Minutes): See Attending's attestation Discharge Plan Discharge Items Patient Disposition: Home - Self-Care Reason For Visit: LLE CELLULITIS, HYPOKALEMIA Discharge Diagnosis: Left leg cellulitis Condition on Discharge: Fair Activity: Resume your previous activity Non-emergency contact: Primary Care Provider Call non-emergency contact if: you have any medication questions Follow-up/Referrals: Katie Okeefe CRNP [Primary Care Provider] - Diet: Regular Addtl Attending Provider Instructions: Please follow up with family physician in one week Pending Studies at Discharge: No Stand-Alone Forms: [employer], Smoking Cessation Medications and DC Order Prescriptions: New cephalexin 250 mg capsule 250 mg PO TID Qty: 6 0RF Continued epinephrine 0.3 mg/0.3 mL Auto-Injector 0.3 mg IM Q4H PRN (Reason: Allergic Reaction) buprenorphine HCl 8 mg tablet, sublingual 8 mg SUBLINGUAL BID prednisone 10 mg tablet 5 mg PO QAM fondaparinux 2.5 mg/0.5 mL syringe 2.5 mg subcut .EVERY 24 HOURS Qty: 30 0RF lansoprazole 30 mg tablet,disintegrat, delay rel 30 mg PO QAM Rx Instructions: dissolve 1 tablet under tongue 30 min to 1 hour prior to meal Discharge Orders: Discharge Order (Routine); Ordered 09/15/24 Ordered By: Cordelia Baldwin Admission Data Admit Date/Time: 09/12/24 16:16 Attending Provider: Cordelia Baldwin Admit Provider: Barrie Marquez Primary Care Provider: Katie Okeefe Other Providers: Barrie Marquez; Pérez Lindo; Scott Higgins [facility] Other Interventions: Discharge Summary Assessment (RN) Last Done: 09/15/24 13:42 Supervising Physician Co-Signing Physician Notes Attending Physician Supervision Note: I independently interviewed and examined the patient and verified the silverio history and physical, reviewed labs and image studies and agree with findings and care plan noted above. mostly resolved left leg redness/swelling. moving around in the room without difficulty. vitals noted nad heent nc at mmm breathing unlabored no accessory muscles good effort skin no rashes no pallor or icterus neuro no focal deficits. left leg - mostly improved redness and swelling. central scab present. cellulitis - worsen on outpatient PO abx - likely from poor oral absorption d/t short gut - started on cefazolin. considering almost resolved cellulitis - home on 1 more day of oral abx. prior VTE - Ddimer negative, CTA negative. had ran out of fondaparinux. resumed fondaparinux here at proph dosing. Rx sent to pharmacy. follow up with pcp. Resident Activity Tracking Resident Involvement: Resident Care Provided Care Provided: Adult Hospital Medicine
[2024-09-16] MEDS ORDERED: cefTRIAXone SODIUM 2,000 MG/50 ML BAG IV SCH (09:00)
== END 2024-09-15 13:51 | disposition home or self-care (01) | DRG 602 ==
LOC: ED 12:34 → SUATTDRO 16:16 → 3N 16:16

== ENCOUNTER 2025-03-12 13:40 | Inpatient (IN) ==
--- NOTE | 2025-03-12 14:07 | XRay Report ---
XR chest 1V portable CLINICAL HISTORY: syncope COMPARISON STUDY: 09/12/2024 FINDINGS: Heart size and pulmonary vasculature are normal. No effusion, consolidation, or pneumothora x. IMPRESSION: No acute findings. ACT 112: Negative or not required by law. Electronically signed by: Genaro Mcgill M.D. 03/12/2025 2:06 PM
[2025-03-12 14:12] LABS: Basophils # (auto) 0.01 K/uL (0.00-0.20); Basophils % (auto) 0.1 %; Eosinophils # (auto) 0.01 K/uL (0.00-0.50); Eosinophils % (auto) 0.1 %; Hematocrit (blood only) 38.8 % (37.0-47.0); Hemoglobin 11.6 g/dl (12.0-16.0); Immature Granulocytes # (auto) 0.11 K/uL (0.01-0.20); Immature Granulocytes % (auto) 1.4 %; Lymphocytes # (auto) 0.71 K/uL (1.20-3.40); Lymphocytes % (auto) 9.4 %; Mean Corpuscular Hemoglobin 23.5 pg (25.0-34.0); Mean Corpuscular Hgb Conc 29.9 g/dL (32.0-36.0); Mean Corpuscular Volume 78.7 fL (80.0-100.0); Mean Platelet Volume 10.4 fL (9.4-12.4); Monocytes # (auto) 0.25 K/uL (0.11-0.59); Monocytes % (auto) 3.3 %; Neutrophils % (auto) 85.7 %; Platelet Count 221 K/uL (130-400); RDW Coefficient of Variation 16.7 % (11.5-14.5); RDW Standard Deviation 46.5 fL (36.4-46.3); Red Blood Count 4.93 M/uL (4.20-5.40); White Blood Count 7.59 K/ul (4.8-10.8)
[2025-03-12 14:27] LABS: Pregnancy Test, Serum Negative (Negative)
[2025-03-12 14:29] LABS: Albumin Level 4.4 gm/dl (3.4-5.0); Anion Gap 8 (3-11); Bilirubin,Total 0.4 mg/dl (0.2-1.0); Calcium 9.9 mg/dl (8.6-10.3); Carbon Dioxide 40 mmol/L (21-32); Chloride 87 mmol/L (98-107); Magnesium 1.8 mg/dl (1.7-2.4); Potassium 2.6 mmol/L (3.5-5.1); Sodium 135 mmol/L (136-145)
[2025-03-12 14:31] LABS: Appearance Urine Clear (Clear); Bacteria Urine Automated None Seen (None Seen); Bilirubin Urine Negative (Negative); Blood Urine Negative (Negative); Cast Urine Automated 0-2 /lpf (0-2); Color Urine Yellow; Epithelial Cell Urine Auto 0-2 /hpf (0-2); Glucose Urine UA Negative (Negative); Ketones Urine Negative (Negative); Leukocyte Esterase Urine Trace (Negative); Nitrite Urine Negative (Negative); Protein Urine Negative (Negative); RBC Urine Automated 0-2 /hpf (0-2); Specific Gravity Urine 1.017 (1.000-1.030); Urobilinogen Urine Negative (Negative); WBC Urine Automated 0-5 /hpf (0-5)
--- NOTE | 2025-03-12 14:32 | Emergency Department Note ---
Impression & Plan Syncope and collapse, Acute hypokalemia, Infection due to human metapneumovirus (hMPV) ED Provider Note HISTORY OF PRESENT ILLNESS: Patient is a 39-year-old female presenting with multiple complaints. Patient reports that she has been "having a fever every day for the last few weeks." She reports she has been sick with an upper respiratory infection for the last few days. She states that the last thing she remembers today was being in the kitchen doing some dishes. However, she reportedly went upstairs to put things away and her daughter stated that she passed out and her daughter caught her. Unsure if the patient hit her head. She states that she has not been on any recent oral antibiotics, as "my infections always require IV antibiotics." Patient is on fondaparinux for anticoagulation for history of DVT. Patient denies recent nausea or vomiting. She reports she has been having good ostomy output. She does not remember the episode of passing out. She states she does not remember even going up stairs. ROS: as above PHYSICAL EXAM: Constitutional: Patient appears in no acute distress. HENT: Head: Normocephalic and atraumatic. Eyes: EOMI, PERRL Mouth/Throat: Mucous membranes moist. Neck: Trachea midline. Neck supple. Cardiovascular: RRR, No murmurs, rubs or gallops. Intact distal pulses. Pulmonary/Chest: No respiratory distress. Breath sounds clear and equal bilaterally. No wheezes or rales. Abdominal: Abdomen soft, no tenderness, rebound or guarding. Ostomy in RLQ Musculoskeletal: No edema, tenderness or deformity noted. Skin: Warm and dry. No rash, erythema, pallor or cyanosis Psychiatric: Appropriate mood and affect for situation. Neurological: Alert and keenly responsive. CN II-XII grossly intact, moving all extremities equally and fully. MDM: - Vitals signs stable. - History obtained via patient. History as above. - Chronic conditions affecting care: failure to thrive; Crohn's disease; Rheumatoid arthritis; hx of DVT - Differential diagnoses include, but are not limited to: ACS; dysrhythmia; electrolyte abnormality; pneumonia; viral syndrome; PE - Order placed for continuous cardiac monitoring. At this time, monitor showed rate of 103 bpm with normal sinus rhythm, per my interpretation. - External medical records reviewed. Discharge summary dated 09/15/2024 was reviewed. Patient was admitted that time for short gut syndrome and cellulitis of her left leg. - EKG image interpreted by myself showed normal sinus rhythm. Rate 79 bpm. QT 386. No acute ischemic changes. - Laboratory workup interpreted by myself showed normal WBC; normal PT/INR; hypokalemia (K 2.6); elevated bicarb (40); normal CK; normal troponin; normal lipase; normal TSH; negative hCG - UA negative for infection - CXR image reviewed by myself negative for pneumonia, per my interpretation. - Viral respiratory panel positive for Human metapneumovirus - Patient given 10 mEq IV potassium x3 and 20 mEq PO potassium for electrolyte replacement. - Unclear etiology for patient's syncopal episode at this time, though may be secondary to a potential dysrhythmia from her electrolyte abnormality. - Discussion was had with case management associate about patient's case and need for admission - Hospitalist consulted for admission - [facility] for further evaluation and management. ASSESSMENT AND PLAN: Diagnosis: syncope and collapse; acute hypokalemia; infection due to human metapneumovirus Plan: admit Past Med/Surg History Problem List (Updated 03/12/25 @ 18:18 [address] Jean MD) Infection due to human metapneumovirus (hMPV) (Acute) Acute hypokalemia (Acute) Syncope and collapse (Acute) Hyponatremia Infection due to human metapneumovirus (hMPV) Syncope Short gut syndrome Immunocompromised (Acute) Failure of outpatient treatment (Acute) Hypokalemia (Acute) Cellulitis (Acute) Hypomagnesemia (Acute) Acute dehydration (Acute) Precordial chest pain (Acute) Abdominal infection Anemia B12 deficiency Chest pressure Adnexal cyst Back pain Adrenal cyst Crohn's disease of colon with fistula Severe protein-calorie malnutrition ARIANNE (acute kidney injury) (Acute) Acute cellulitis (Acute) FTT (failure to thrive) in adult Acute hypotension (Acute) Shortness of breath (Acute) Acute dehydration (Acute) Hypomagnesemia (Acute) Microcytic anemia Hypocalcemia Hypoglycemia Lesion of ovary Abdominal pain (Acute) UTI (urinary tract infection) (Acute) Acute hypokalemia (Acute) Metabolic acidosis (Acute) Ileostomy status Iron deficiency anemia (Acute) Endometriosis (Chronic) Medical History Chest tightness Lower back pain Bilateral flank pain Postoperative abdominal pain Sepsis History of DVT (deep vein thrombosis) History of MRSA infection "per records" Chronic pain Enterocutaneous fistula Severe anemia Protein calorie malnutrition Small bowel obstruction Rheumatoid arthritis Surgical History H/O colectomy "total colectomy with ileoanal anastomosis 03/2006" History of rectal surgery "hundreds of fistula surgeries" S/P exploratory laparotomy endometriosis H/O resection of large bowel multiple resections and clean outs Family History Other Blood clot in vein Social History Smoking Status: Former smoker Tobacco Type: Cigarettes Cigarettes Per Day: Unknown.; Second Hand Exposure: No; Do You Dip or Chew Tobacco: No; Hx Alcohol Use: No Hx Substance Use: No Preferred Language: Hebrew Communication Ability: Effective [employer] Required: No Beliefs That Will Affect Care: None Current Living Situation: Family Current Living Situation Comment: Lives with Daughter. Feels Safe at Home: Yes Assistive Devices: Walker Allergies Allergies Allergy/AdvReac Type Severity Reaction Status Date / Time adalimumab [From Humira] Allergy Severe Anaphylaxis Verified 12/30/24 15:51 aspirin Allergy Severe ANAPHYLAXIS Verified 12/30/24 15:51 bee venom protein (honey bee) Allergy Severe Anaphylaxis Verified 12/30/24 15:51 infliximab Allergy Severe ANAPHYLAXIS Verified 12/30/24 15:51 ketorolac [From Toradol] Allergy Severe Swelling Verified 12/30/24 15:51 of Lip/Tongue/Throat NSAIDS (Non-Steroidal Allergy Severe THROAT Verified 12/30/24 15:51 Anti-Inflamma SWELLING Penicillins Allergy Severe Anaphylaxis/FULL Verified 12/30/24 15:51 BODY RASH Sulfa (Sulfonamide Allergy Severe throat Verified 12/30/24 15:51 Antibiotics) swelling azathioprine AdvReac Intermediate MIGRAINE Verified 12/30/24 15:51 Home Meds Home Medications Medication Instructions Recorded Confirmed epinephrine 0.3 mg/0.3 mL 0.3 mg IM Q4H PRN Allergic Reaction 08/26/22 12/30/24 injection, auto-injector buprenorphine HCl 8 mg sublingual 8 mg sublingual BID 10/02/23 12/30/24 tablet lansoprazole 30 mg delayed 30 mg PO QAM 03/12/24 12/30/24 release,disintegrating tablet prednisone 10 mg tablet 10 mg PO QAM 09/12/24 12/30/24 calcium carbonate 500 mg PO QDL 12/30/24 12/30/24 Previous Rx's Medication Instructions Recorded fondaparinux 2.5 mg/0.5 mL 2.5 mg (0.5 mL) subcut .EVERY 24 09/15/24 subcutaneous solution syringe HOURS #30 mL epinephrine 0.3 mg/0.3 mL 0.3 mg (0.3 mL) IM Q30M PRN 12/30/24 injection, auto-injector (EpiPen) anaphylaxis #2 ea fondaparinux 2.5 mg/0.5 mL 2.5 mg (0.5 mL) subcut DAILY #5 mL 12/30/24 subcutaneous solution syringe lansoprazole 30 mg capsule,delayed 30 mg PO DAILY #30 caps 12/30/24 release prednisone 10 mg tablet 10 mg PO DAILY #30 tabs 12/30/24 Results & Data (ED) Vital Signs Vital Signs - 24 hr 03/12/25 13:53 03/12/25 14:00 03/12/25 15:00 Temperature 36.6 C Temperature Source Oral Pulse Rate 76 Pulse Rate [Apical] 77 Respiratory Rate 19 20 Respiratory Effort / Characteristics Non-Labored Spontaneous Non-Labored Spontaneous Respiratory Depth Normal Normal Respiratory Pattern Regular Regular Blood Pressure 125/90 Blood Pressure [Right Arm] 118/78 Blood Pressure Mean 101 Blood Pressure Mean [Right Arm] 91 Blood Pressure Position [Right Arm] Sitting Pulse Oximetry 94 94 95 Oxygen Delivery Method Room Air Room Air Sepsis Recent Fever Within 48 Hours No Sepsis New/Unexplained Change in Mental Status No Sepsis Action Taken by Nursing No Action Required 03/12/25 15:04 03/12/25 15:08 03/12/25 16:04 Temperature 36.6 C Temperature Source Oral Pulse Rate 76 Pulse Rate [Apical] 77 81 Respiratory Rate 20 20 Respiratory Effort / Characteristics Non-Labored Spontaneous Non-Labored Spontaneous Respiratory Depth Normal Normal Respiratory Pattern Regular Regular Blood Pressure Blood Pressure [Right Arm] 118/78 118/65 Blood Pressure Mean Blood Pressure Mean [Right Arm] 91 82 Blood Pressure Position [Right Arm] Sitting Pulse Oximetry 96 97 Oxygen Delivery Method Room Air Room Air Sepsis Recent Fever Within 48 Hours Sepsis New/Unexplained Change in Mental Status Sepsis Action Taken by Nursing 03/12/25 17:00 03/12/25 18:00 Temperature Temperature Source Pulse Rate Pulse Rate [Apical] 90 103 H Respiratory Rate 18 18 Respiratory Effort / Characteristics Non-Labored Spontaneous Respiratory Depth Normal Respiratory Pattern Regular Blood Pressure Blood Pressure [Right Arm] 125/78 107/67 Blood Pressure Mean Blood Pressure Mean [Right Arm] 93 80 Blood Pressure Position [Right Arm] Sitting Pulse Oximetry 97 98 Oxygen Delivery Method Room Air Room Air Sepsis Recent Fever Within 48 Hours Sepsis New/Unexplained Change in Mental Status Sepsis Action Taken by Nursing Laboratory Data 03/12/25 13:50 03/12/25 13:50 Lab Results 03/12/25 03/12/25 Range/Units 13:50 Unknown WBC 7.59 (4.8-10.8) K/ul RBC 4.93 (4.20-5.40) M/uL Hgb 11.6 L (12.0-16.0) g/dl Hct 38.8 (37.0-47.0) % MCV 78.7 L (80.0-100.0) fL MCH 23.5 L (25.0-34.0) pg MCHC 29.9 L (32.0-36.0) g/dL RDW Std Deviation 46.5 H (36.4-46.3) fL RDW Coeff of Qu[place] 16.7 H (11.5-14.5) % Plt Count 221 (130-400) K/uL MPV 10.4 (9.4-12.4) fL Immature Gran % (Auto) 1.4 % Neut % (Auto) 85.7 % Lymph % (Auto) 9.4 % Cobb % (Auto) 3.3 % Eos % (Auto) 0.1 % Baso % (Auto) 0.1 % Neut # (Auto) 6.50 (1.40-6.50) K/uL Lymph # (Auto) 0.71 L (1.20-3.40) K/uL Cobb # (Auto) 0.25 (0.11-0.59) K/uL Eos # (Auto) 0.01 (0.00-0.50) K/uL Baso # (Auto) 0.01 (0.00-0.20) K/uL Immature Gran # (Auto) 0.11 (0.01-0.20) K/uL PT 10.3 (9.0-12.0) Seconds INR 0.9 (0.9-1.1) Sodium 135 L (136-145) mmol/L Potassium 2.6 L (3.5-5.1) mmol/L Chloride 87 L (98-107) mmol/L Carbon Dioxide 40 H (21-32) mmol/L Anion Gap 8 (3-11) BUN 22 (6-23) mg/dl Creatinine 0.86 (0.6-1.2) mg/dl Est Cr Clr Drug Dosing 71.2 ml/min eGFR 86.98 BUN/Creatinine Ratio 25.6 H (10-20) Glucose 86 (70-99(Fasting)) mg/dl Calcium 9.9 (8.6-10.3) mg/dl Magnesium 1.8 (1.7-2.4) mg/dl Total Bilirubin 0.4 (0.2-1.0) mg/dl AST 22 (13-39) U/L ALT 30 (7-52) U/L Alkaline Phosphatase 85 (34-104) U/L Total Creatine Kinase 63 (26-192) U/L Troponin I High Sens < 2.3 (0-14) pg/ml Total Protein 7.5 (6.0-8.3) gm/dl Albumin 4.4 (3.4-5.0) gm/dl Globulin 3.1 (2.5-4.0) gm/dl Albumin/Globulin Ratio 1.4 (0.9-2) Lipase 29 (11-82) U/L TSH 0.355 (0.300-4.500) uIu/ml HCG, Qual Negative (Negative) Urine Color Yellow Urine Appearance Clear (Clear) Urine pH 7.0 (4.5-7.5) Ur Specific [place] 1.017 (1.000-1.030) Urine Protein Negative (Negative) Urine Glucose (UA) Negative (Negative) Urine Ketones Negative (Negative) Urine Blood Negative (Negative) Urine Nitrite Negative (Negative) Urine Bilirubin Negative (Negative) Urine Urobilinogen Negative (Negative) Ur Leukocyte Esterase Trace H (Negative) Urine WBC (Auto) 0-5 (0-5) /hpf Urine RBC (Auto) 0-2 (0-2) /hpf U Hyaline Cast (Auto) 0-2 (0-2) /lpf U Epithel Cells (Auto) 0-2 (0-2) /hpf Urine Bacteria (Auto) None Seen (None Seen) Adenovirus (PCR) Not Detected (NotDetected) B. pertussis DNA (PCR) Not Detected (NotDetected) B.parapertussis DNA PCR Not Detected (NotDetected) C. pneumoniae DNA (PCR) Not Detected (NotDetected) Coronavirus OC43 (PCR) Not Detected (NotDetected) Coronavirus HKU1 (PCR) Not Detected (NotDetected) Coronavirus 229E (PCR) Not Detected (NotDetected) SARS-CoV-2 (PCR) Not Detected (NotDetected) Coronavirus NL63 (PCR) Not Detected (NotDetected) Human Metapneumovir PCR DETECTED A (NotDetected) Influenza Type A (PCR) Not Detected (NotDetected) Influenza Type B (PCR) Not Detected (NotDetected) M. pneumoniae (PCR) Not Detected (NotDetected) Parainfluenza 1 (PCR) Not Detected (NotDetected) Parainfluenza 2 (PCR) Not Detected (NotDetected) Parainfluenza 3 (PCR) Not Detected (NotDetected) Parainfluenza 4 (PCR) Not Detected (NotDetected) RSV (PCR) Not Detected (NotDetected) Entero/Rhino (PCR) Not Detected (NotDetected) Administered Medications Discontinued Medications Potassium Chloride (K Vickey / Wtr) 10 meq in 100 mls @ 100 mls/hr IV Q1H XENA Stop: 03/12/25 16:59 Last Infusion: 03/12/25 17:57 Dose: Infused Documented By: Admin: 03/12/25 16:44 Dose: 100 mls/hr Documented By: Infusion: 03/12/25 16:30 Dose: Infused Documented By: Admin: 03/12/25 15:21 Dose: 100 mls/hr Documented By: ANGELINA Potassium Chloride (Potassium Chloride Crtab 20 Meq Tabcr) 20 meq PO NOW STA Stop: 03/12/25 14:58 Last Admin: 03/12/25 15:21 Dose: 20 meq Documented By: KR Imaging Data Radiologist's Impression: Chest X-Ray 03/12/25 13:53 XR chest 1V portable CLINICAL HISTORY: syncope COMPARISON STUDY: 09/12/2024 FINDINGS: Heart size and pulmonary vasculature are normal. No effusion, consolidation, or pneumothorax. IMPRESSION: No acute findings. ACT 112: Negative or not required by law. Electronically signed by: Genaro Mcgill M.D. 03/12/2025 2:06 PM Discharge Plan Visit Data Chief Complaint: Syncope ED Provider: Court Jean Discharge Problem: Syncope and collapse, Acute hypokalemia, Infection due to human metapneumovirus (hMPV) Condition: Fair Forms Stand Alone Forms: [facility] Prescriptions Prescriptions: No Action epinephrine 0.3 mg/0.3 mL Auto-Injector 0.3 mg IM Q4H PRN (Reason: Allergic Reaction) buprenorphine HCl 8 mg tablet, sublingual 8 mg SUBLINGUAL BID prednisone 10 mg tablet 10 mg PO QAM fondaparinux 2.5 mg/0.5 mL syringe 2.5 mg subcut .EVERY 24 HOURS Qty: 30 0RF Rx Instructions: TAKE AT BEDTIME calcium carbonate [Tums 500] 500 mg calcium (1,250 mg) Tablet,Chewable 500 mg PO QDL epinephrine [EpiPen] 0.3 mg/0.3 mL auto-injector 0.3 mg IM Q30M PRN (Reason: anaphylaxis) Qty: 2 0RF lansoprazole 30 mg capsule,delayed release(DR/EC) 30 mg PO DAILY Qty: 30 0RF prednisone 10 mg tablet 10 mg PO DAILY Qty: 30 0RF fondaparinux 2.5 mg/0.5 mL syringe 2.5 mg subcut DAILY Qty: 5 0RF lansoprazole 30 mg tablet,disintegrat, delay rel 30 mg PO QAM Rx Instructions: dissolve 1 tablet under tongue 30 min to 1 hour prior to meal Referrals Referrals: Katie Okeefe CRNP [Outside Practitioners] -
[2025-03-12 14:35] LABS: Alanine Aminotransferase 30 U/L (7-52); Albumin Globulin Ratio 1.4 (0.9-2); Alkaline Phosphatase 85 U/L (34-104); Aspartate Aminotransferase 22 U/L (13-39); BUN Creatinine Ratio 25.6 (10-20); Blood Urea Nitrogen 22 mg/dl (6-23); Creatine Kinase 63 U/L (26-192); Creatinine Clr Calc Pharmacy 71.2 ml/min; Globulin 3.1 gm/dl (2.5-4.0); Glucose 86 mg/dl (70-99(Fasting)); Lipase 29 U/L (11-82); Total Protein 7.5 gm/dl (6.0-8.3)
[2025-03-12 14:40] LABS: Troponin I High Sensitivity < 2.3 pg/ml (0-14)
[2025-03-12 14:42] LABS: INR 0.9 (0.9-1.1); Prothrombin Time 10.3 Seconds (9.0-12.0)
[2025-03-12 14:49] LABS: Thyroid Stimulating Hormone 0.355 uIu/ml (0.300-4.500)
[2025-03-12] MEDS: POTASSIUM CHLORIDE CRTAB 20 MEQ TABCR PO STA (15:21)
[2025-03-12] MEDS: POTASSIUM CHLORIDE / WTR 10 MEQ/100 ML PLCT IV SCH ×2 (15:21→19:44)
[2025-03-12 15:43] LABS: Adenovirus PCR Not Detected (NotDetected); Bordetella parapertussis PCR Not Detected (NotDetected); Bordetella pertussis PCR Not Detected (NotDetected); Chlamydia pneumoniae PCR Not Detected (NotDetected); Coronavirus 229E PCR Not Detected (NotDetected); Coronavirus CoV-2 (COVID19)PCR Not Detected (NotDetected); Coronavirus HKU1 PCR Not Detected (NotDetected); Coronavirus NL63 PCR Not Detected (NotDetected); Coronavirus OC43PCR Not Detected (NotDetected); Human Metapneumovirus PCR DETECTED (NotDetected); Influenza A PCR Not Detected (NotDetected); Influenza B PCR Not Detected (NotDetected); Mycoplasma pneumoniae PCR Not Detected (NotDetected); Parainfluenza Virus 1 PCR Not Detected (NotDetected); Parainfluenza Virus 2 PCR Not Detected (NotDetected); Parainfluenza Virus 3 PCR Not Detected (NotDetected); Parainfluenza Virus 4 PCR Not Detected (NotDetected); Respiratory Syncytial VirusPCR Not Detected (NotDetected); Rhinovirus/Enterovirus PCR Not Detected (NotDetected)
--- NOTE | 2025-03-12 17:46 | History & Physical Report ---
Date of Service March 12, 2025 Assessment & Plan (1) Syncope: (2) Infection due to human metapneumovirus (hMPV): (3) Hypokalemia: (4) Hyponatremia: (5) Ileostomy status: Plan Mrs. Black is a 39-year-old female who presented on 03/12 for syncopal episode. Found to have human metapneumovirus on arrival with significant electrolyte normalities on arrival. #Syncope Syncopal episode on 03/12; on blood thinners Patient denies head strike, she did land hard on her right arm, and believes she hit her arm on her head/the hardwood floor Head CT ordered, pending Orthostatic vitals ordered, pending Patient reports she has been lightheaded all week Suspect this episode of syncope was secondary to acute upper respiratory illness and electrolyte abnormalities Continuous telemetry monitoring #Human metapneumovirus hMPV (+) on arrival CXR revealed no acute findings Droplet/contact isolation precautions Supportive care Acetaminophen as needed for pain/fever IS, flutter valve Scheduled DuoNebs 3mL q6r Guaifenesin 600 mg p.o. BID #Hypokalemia K 2.6 on arrival History of hypokalemia, and patient reports she is normally on potassium supplements daily K riders 10 mEq x 5 Potassium supplementation p.o. 20mEq Trend BMP q6h; signed out to overnight team If refractory will consider urine electrolytes for renal wasting #Elevated carbon dioxide level Suspected metabolic alkalosis VBG ordered, pending #Hyponatremia | Hypochloremia | Dehydration Mild; Na 135 on arrival Ur Osm, Ur sodium, serum osm ordered NSS 1000 mL IV x 1 Additional fluids with NSS at 80mL/hr x 1L #Anemia Chronic; Hgb 11.6 on arrival Clinically, no signs of active bleeding on physical exam Trend CBC #Crohn's disease | short gut syndrome | ileostomy status | chronic steroid use Patient currently takes prednisone 10 mg daily; however, 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 She presented on 03/12 following a syncopal episode. She was feeling lightheaded, and was "hauling totes" up the stairs when she entered into her room and passed out. This was witnessed by her daughter. Patient is unsure if her daughter caught her; she reports that she does not remember walking up the steps, and the events are fuzzy. She does feel pain in her right arm and shoulder, and believes she struck them when she fell. While the patient denies head strike, she does report that she hit her head on her right arm. Fall occurred onto a hardwood floor. Full LOC. She does currently take blood thinners. She has had upper respiratory symptoms for the past 2 weeks, but they became increasingly better over this past week. She has been walk around feeling "lightheaded", and like she has the "flu". She endorses both SOB at rest and with exertion. Ongoing productive cough. Additionally, she feels like her skin is "on fire". While her neck hurts a little, as well as the right side of her head, she reports the pain is not too bad. She denies any recent change in her ostomy consistency, but feels like it has been increased frequency over the past week. She has been drinking a ton of water this week, but still feels dehydrated with dry mouth and decreased urine output. Patient has not been taking anything additional for her symptoms. She has had low-grade fevers at home, but reports these are never above 100 degrees Fahrenheit, and she is not taking Tylenol. No prior history of COPD or asthma. She is a former tobacco cigarette smoker but quit 4 years ago. No recent alcohol use. Patient did not take her regular morning medicines today. She takes a blood thinner (fondaparinux) every day at 7 PM for history of DVTs. H/o blood clot disorder. She denies missed doses of her blood thinner. Over the past week, she has been taking prednisone 10 mg 2-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; she takes this chronically for her Crohn's/to keep inflammation down, but reports that she also takes it for "blood regeneration, and to help her anemia levels. Patient also takes potassium supplements daily, but is unsure if this helps. Patient's daughter is also sick at home with similar symptoms. Patient's vitals are stable at time of admission. ED course: K rider 10 mEq x 2 Potassium chloride 20mEq p.o. ROS: Patient endorses low-grade fevers, chills, body aches, SOB at rest, PAUL, pleuritic CP, productive cough, wheezing, lower back pain, increased amounts of ostomy output (takes immodium to slow it down), and numbness/tingling in the arms and legs (chronic). Patient denies chest pain, chest palpitations, hemoptysis, change in ostomy input, nausea, vomiting, burning with urination, and blood in the urine. Allergies Allergy/AdvReac Type Severity Reaction Status Date / Time adalimumab [From Humira] Allergy Severe Anaphylaxis Verified 12/30/24 15:51 aspirin Allergy Severe ANAPHYLAXIS Verified 12/30/24 15:51 bee venom protein (honey bee) Allergy Severe Anaphylaxis Verified 12/30/24 15:51 infliximab Allergy Severe ANAPHYLAXIS Verified 12/30/24 15:51 ketorolac [From Toradol] Allergy Severe Swelling Verified 12/30/24 15:51 of Lip/Tongue/Throat NSAIDS (Non-Steroidal Allergy Severe THROAT Verified 12/30/24 15:51 Anti-Inflamma SWELLING Penicillins Allergy Severe Anaphylaxis/FULL Verified 12/30/24 15:51 BODY RASH Sulfa (Sulfonamide Allergy Severe throat Verified 12/30/24 15:51 Antibiotics) swelling azathioprine AdvReac Intermediate MIGRAINE Verified 12/30/24 15:51 Home Medications Medication Instructions Recorded Confirmed Type epinephrine 0.3 mg/0.3 mL 0.3 mg IM Q4H PRN Allergic Reaction 08/26/22 03/12/25 History injection, auto-injector buprenorphine HCl 8 mg sublingual 8 mg sublingual UD 10/02/23 03/12/25 History tablet fondaparinux 2.5 mg/0.5 mL 2.5 mg (0.5 mL) subcut .EVERY 24 09/15/24 03/12/25 Rx subcutaneous solution syringe HOURS #30 mL calcium carbonate 500 mg PO QDL 12/30/24 03/12/25 History pantoprazole 40 mg tablet,delayed 40 mg PO DAILY 03/12/25 03/12/25 History release (Protonix) potassium 1 tab PO QAM 03/12/25 03/12/25 History prednisone 10 mg tablet 10 mg PO QAM 03/12/25 03/12/25 History Past Med/Surg History Problem List (Updated 03/13/25 @ 05:25 by Chapin Garcia MD) Infection due to human metapneumovirus (hMPV) (Acute) Acute hypokalemia (Acute) Syncope and collapse (Acute) Hyponatremia Infection due to human metapneumovirus (hMPV) Syncope Immunocompromised (Acute) Failure of outpatient treatment (Acute) Hypokalemia (Acute) Cellulitis (Acute) Hypomagnesemia (Acute) Acute dehydration (Acute) Precordial chest pain (Acute) Abdominal infection Anemia B12 deficiency Chest pressure Adnexal cyst Back pain Adrenal cyst Severe protein-calorie malnutrition ARIANNE (acute kidney injury) (Acute) Acute cellulitis (Acute) FTT (failure to thrive) in adult Acute hypotension (Acute) Shortness of breath (Acute) Acute dehydration (Acute) Hypomagnesemia (Acute) Microcytic anemia Hypocalcemia Hypoglycemia Lesion of ovary Abdominal pain (Acute) UTI (urinary tract infection) (Acute) Acute hypokalemia (Acute) Metabolic acidosis (Acute) Iron deficiency anemia (Acute) Endometriosis (Chronic) Medical History (Updated 03/13/25 @ 05:25 by Chapin Garcia MD) Short gut syndrome Crohn's disease of colon with fistula Chest tightness Lower back pain Bilateral flank pain Postoperative abdominal pain Sepsis History of DVT (deep vein thrombosis) History of MRSA infection "per records" Chronic pain Enterocutaneous fistula Severe anemia Protein calorie malnutrition Small bowel obstruction Rheumatoid arthritis Surgical History (Updated 03/13/25 @ 05:25 by Chapin Garcia MD) Ileostomy status H/O colectomy "total colectomy with ileoanal anastomosis 03/2006" History of rectal surgery "hundreds of fistula surgeries" S/P exploratory laparotomy endometriosis H/O resection of large bowel multiple resections and clean outs Family History Other Blood clot in vein Social History Smoking Status: Former smoker Tobacco Type: Cigarettes Cigarettes Per Day: Unknown.; Second Hand Exposure: No; Do You Dip or Chew Tobacco: No; Hx Alcohol Use: No Hx Substance Use: No Preferred Language: Mosotho Communication Ability: Effective Service Now Developer Required: No Beliefs That Will Affect Care: None Current Living Situation: Family Current Living Situation Comment: Lives with daughter Other Information That Helps Us Care for You: No Feels Safe at Home: Yes Safety Concerns: Feels Safe At This Time Assistive Devices: None Review of Systems Review of Systems: See HPI above Physical Exam Physical Exam: General: Nonacute respiratory distress; hacking cough; ill-appearing; cachectic; cooperative; SpO2 98% on RA HEENT: mild temporal tenderness on the right forehead; no bruising appreciated - otherwise normocephalic; eyes mildly erythematous bilaterally; PERRLA; vision and hearing grossly intact Neck: supple; no lymphadenopathy; trachea midline Skin: warm, dry without signs of tenting; no cyanosis; no rashes, bruising, lesions, or erythema noted CV: chest wall NTP; RR, mildly tachycardic around 107 bpm; S1/S2 normal; no murmurs/rubs/gallops; pulses intact and symmetric at radial, DP, and PT Lungs: Mild acute respiratory distress; symmetrical chest wall expansion; bibasilar crackles and expiratory wheeze auscultated in the lower lung maldonado bilaterally ABD: Soft, NTP in all 4 quadrants; ileostomy in place, mild erythema noted surrounding the pouch; BS present; no rebound/guarding; no distention MSK: no tics or fasciculations; no edema noted in the LEs b/l, nonerythematous Neuro: A&Ox3; normal mood and affect; fluent speech; no focal deficits; patient reports that she has decreased sensation in the left lower extremity when compared to the right; pulses intact in the lower extremities bilaterally; neuro vascularly intact; patient demonstrates ability to wiggle toes bilaterally Results & Data Results & Data Vital Signs (Past 12 Hours) Vital Signs Temp Pulse Pulse Resp BP BP Pulse Ox 03/12/25 17:00 90 18 125/78 97 03/12/25 16:04 36.6 C 81 20 118/65 97 03/12/25 15:08 76 03/12/25 15:04 77 20 118/78 96 03/12/25 15:00 77 20 118/78 95 05/09/25 14:00 36.6 C 76 19 125/90 94 03/12/25 13:53 94 O2 Del Method 03/12/25 17:00 Room Air 03/12/25 16:04 Room Air 03/12/25 15:08 03/12/25 15:04 Room Air 03/12/25 15:00 Room Air 03/12/25 14:00 Room Air 03/12/25 13:53 Laboratory Results Abnormal lab results 03/12/25 03/12/25 Range/Units 13:50 Unknown Hgb 11.6 L (12.0-16.0) g/dl MCV 78.7 L (80.0-100.0) fL MCH 23.5 L (25.0-34.0) pg MCHC 29.9 L (32.0-36.0) g/dL RDW Std Deviation 46.5 H (36.4-46.3) fL RDW Coeff of Quoc 16.7 H (11.5-14.5) % Lymph # (Auto) 0.71 L (1.20-3.40) K/uL Sodium 135 L (136-145) mmol/L Potassium 2.6 L (3.5-5.1) mmol/L Chloride 87 L (98-107) mmol/L Carbon Dioxide 40 H (21-32) mmol/L BUN/Creatinine Ratio 25.6 H (10-20) Ur Leukocyte Esterase Trace H (Negative) Human Metapneumovir PCR DETECTED A (NotDetected) Diagnostic Findings Chest X-Ray 03/12/25 13:53 XR chest 1V portable CLINICAL HISTORY: syncope COMPARISON STUDY: 09/12/2024 FINDINGS: Heart size and pulmonary vasculature are normal. No effusion, consolidation, or pneumothorax. IMPRESSION: No acute findings. ACT 112: Negative or not required by law. Electronically signed by: Genaro Mcgill M.D. 03/12/2025 2:06 PM ECG Additional Comments: ECG ordered, pending Code Status & VTE Plan Code Status Full code VTE Prophylaxis Plan VTE Prophylaxis will be ordered: Yes Supervising Physician Co-Signing Physician Notes Attending Attestation and Admit Note: Pt seen/examined, chart reviewed, care plan d/w LISA Cunningham. I agree w/ the silverio components of his admission documentation. 39-year-old female with short gut syndrome, ileostomy status, prior subtotal colectomy, hypokalemia, B12 deficiency, Crohn's disease, severe proteincalorie malnutrition, endometriosis. She presented on 03/12 following a syncopal episode at home. Had been dizzy/lightheaded for several days at home prior to the syncopal event today. Has been sick with URI symptoms for at least a week or longer. Initially was cold symptoms, then "moved into my chest" and she now has cough/wheezing. No h/o asthma. During the visit also c/o numbness of left leg, especially distally, present for several days. No RLE numbness. States she does not have a local GI physician; previously followed by the [facility] in [place]. Is on chronic prednisone 10mg daily for her Crohn's. Was stress dosing last few days - she increased the prednisone to 10mg TID. Of note - she states she empties her ostomy bag at least 5-7x's/day, often more. Bag is typically filled fully with liquid stool. Takes imodium sometimes 20mg+ each day without any changes in the stool. PMH/PSH/allergies/meds/sochx reviewed VSS, afebrile, o2 sats wnl gen - lying comfortably on bed, NAD, looks dehydrated mouth - MM dry, no lesions neck - no JVD heart - RRR, s1 s2 lungs - mild end-exp wheezes b/l, no rales abd - soft, NT, ND, BS+; multiple surgical scars; ileostomy RLQ with pure liquid stool in bag ext - no edema, pulses 2+ b/l neuro - DTRs on right leg 2-3+; left leg 2+; strength 5/5 x b/l LEs labs reviewed imaging reviewed biofire +human metapneumovirus A/P: 1. human metapneumovirus bronchitis - chronic steroids for Crohn's will help wheezing to some degree; will be stress dosed at 20mg BID. Add albuterol 2 puffs BID. Add robitussin QID. Droplet precautions. 2. hypokalemia - 2nd to GI losses, poor po intake, etc. Replace. 3. LLE numbness - check B12 level am. Could be related to low K - she reports issues with cramps of legs. 4. microcytosis - check Fe studies while here. 5. syncope - likely 2nd to volume depletion. Hydrate w/ IVF. 6. short gut syndrome with dumping - will ask nursing to quantitate her ostomy output. May need lomotil, octreotide, or bile acid sequestrant to help with dumping. Chapin Garcia MD PG Care Time/CCT Total # of Minutes Spent Total Time Spent with Patient: Total time spent is greater than 50% in coordination of care (as documented) at patient's floor/unit and/or counseling patient: C[place] [address] INT INP/OBS CARE 3/75MIN Patient Type Established Medical Decision Making High Complexity Diagnoses Syncope R55 Infection due to human metapneumovirus (hMPV) B34.8 Hypokalemia E87.6 Hyponatremia E87.1 Ileostomy status Z93.2
[2025-03-12] MEDS: MAGNESIUM SULFATE / D5W 1 GM/100 ML BAG IV STA (18:26)
--- NOTE | 2025-03-12 19:20 | CT Scan Report ---
Clinical History: Syncope. Injury. Technique: Axial computed tomography images were obtained of the brain from the vertex to the skull base without intravenous contrast. Findings: There is no sign of intracranial hemorrhage. There is normal dukes-white matter differentiation with no sign of acute or old infarction. No midline shift or other form of herniation is identified. There is no hydrocephalus. No obvious mass lesion is seen on this noncontrast examination. The visualized portions of the orbits and paranasal sinuses appear unremarkable. The mastoid air cells appear clear Impression: Unremarkable noncontrast CT of the brain Electronically signed by Trace Patterson 03-12-2025 7:18 PM
[2025-03-12 19:27] LABS: Base Excess VBG 11.6 mEq/L; HCO3 VBG 38 mmol/L; Oxygen Saturation VBG < 60.0 %; PCO2 VBG 56 mmHg (38-50); PO2 VBG 26 mmHg; pH VBG 7.44 (7.36-7.41)
[2025-03-12] MEDS: SODIUM CHLORIDE 0.9% 1,000 ML IV SCH (19:44)
[2025-03-12 19:48] LABS: BUN Creatinine Ratio 16.5 (10-20); Calcium 8.9 mg/dl (8.6-10.3); Creatinine Clr Calc Pharmacy 59.5 ml/min; Potassium 3.1 mmol/L (3.5-5.1)
[2025-03-12] MEDS: guaiFENesin 600 MG TABCR PO SCH (21:11)
[2025-03-12] MEDS: predniSONE 20 MG TAB PO SCH (21:11)
[2025-03-12] MEDS ORDERED: ACETAMINOPHEN 325 MG TAB PO PRN (21:31)
[2025-03-12] MEDS ORDERED: guaiFENesin SUGAR FREE 100 MG/5 ML UDC PO PRN (21:31)
[2025-03-12] MEDS ORDERED: EPINEPHrine INJ 1 MG/ML AMP IM PRN (21:47)
[2025-03-12] MEDS: buprenorphine HCL 2 MG SUBL SL SCH (22:12)
[2025-03-12] MEDS: ALBUT/IPRATROP 3MG/0.5MG NEB 3 ML VIAL INH SCH (22:21)
[2025-03-12] MEDS: BENZONATATE 100 MG CAPSULE PO SCH (22:58)
[2025-03-12] MEDS: FONDAPARINUX 2.5 MG/0.5 ML SYR SQ SCH (22:58)
[2025-03-13 01:42] LABS: BUN Creatinine Ratio 19.8 (10-20); Calcium 8.7 mg/dl (8.6-10.3); Creatinine Clr Calc Pharmacy 63.8 ml/min; Potassium 3.9 mmol/L (3.5-5.1)
[2025-03-13 06:09] LABS: Basophils # (auto) 0.01 K/uL (0.00-0.20); Basophils % (auto) 0.2 %; Eosinophils # (auto) 0.01 K/uL (0.00-0.50); Eosinophils % (auto) 0.2 %; Hemoglobin 11.8 g/dl (12.0-16.0); Immature Granulocytes # (auto) 0.06 K/uL (0.01-0.20); Immature Granulocytes % (auto) 1.1 %; Lymphocytes # (auto) 0.75 K/uL (1.20-3.40); Lymphocytes % (auto) 13.5 %; Mean Corpuscular Hemoglobin 23.7 pg (25.0-34.0); Mean Corpuscular Hgb Conc 29.5 g/dL (32.0-36.0); Mean Corpuscular Volume 80.5 fL (80.0-100.0); Mean Platelet Volume 10.6 fL (9.4-12.4); Monocytes # (auto) 0.13 K/uL (0.11-0.59); Monocytes % (auto) 2.3 %; Neutrophils # (auto) 4.59 K/uL (1.40-6.50); Neutrophils % (auto) 82.7 %; Platelet Count 193 K/uL (130-400); RDW Standard Deviation 48.2 fL (36.4-46.3); Red Blood Count 4.97 M/uL (4.20-5.40); White Blood Count 5.55 K/ul (4.8-10.8)
[2025-03-13 06:27] LABS: Magnesium 2.1 mg/dl (1.7-2.4)
[2025-03-13 06:47] LABS: Ferritin 12.2 ng/ml (8-388)
[2025-03-13 06:53] LABS: Folate (Folic Acid),Ser orPlas 15.62 ng/ml (>5.38)
[2025-03-13 07:19] LABS: BUN Creatinine Ratio 19.3 (10-20); Calcium 9.9 mg/dl (8.6-10.3); Creatinine Clr Calc Pharmacy 73.8 ml/min; Potassium 4.4 mmol/L (3.5-5.1)
[2025-03-13] MEDS: ALBUT/IPRATROP 3MG/0.5MG NEB 3 ML VIAL INH SCH (07:22)
--- NOTE | 2025-03-13 08:06 | Hospitalist Progress Note ---
Date of Service March 13, 2025 Assessment & Plan (1) Syncope: (2) Infection due to human metapneumovirus (hMPV): (3) Hypokalemia: (4) Hyponatremia: (5) Ileostomy status: Plan Mrs. Black is a 39-year-old female who presented on 03/12 for syncopal episode. Positive for human metapneumovirus on arrival with significant electrolyte normalities on arrival. 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 BID #Hypokalemia Potassium trend 2.6 -> 4.4 H/o hypokalemia; on daily supplements S/p K riders 10 mEq x 5 S/p potassium supplementation p.o. 20mEq Continue to trend BMP If refractory to above treatments, could consider urine electrolytes for renal wasting #Hyponatremia | Hypochloremia | Dehydration (resolved) Na 135 -> 140 on arrival Additional IVF as needed Suspect that her dehydration is largely secondary to ostomy output and dumping syndrome # Iron deficiency anemia Chronic; Hgb 11.6 on arrival Clinically, no signs of active bleeding on physical exam Iron panel: Iron 25, TIBC 620, transferrin 443 Poor candidate for p.o. given short gut syndrome/ileostomy status Patient reports she has anaphylactic reactions to IV Venofer infusions Per review of prior hematology notes, it has been recommended that Feraheme 510 mg IV x 2 doses to be administered with premedication (Pepcid 20 mg IV, Tylenol 650 mg p.o., dexamethasone 20 mg IV) Feraheme is currently non-formulary here Recommend following up with his PCP for outpatient infusion Trend CBC #Vitamin B12 deficiency Vitamin B12 low at 167 on arrival Cyanocobalamin 1000 mcg IM x 1 #Crohn's disease | short gut syndrome | ileostomy status | chronic steroid use Patient currently takes prednisone 10 mg daily; however, 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, 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-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 While patient is not hypotensive on admission, given acute illness + low/normal blood pressure, will increase prednisone dosage to 20 mg BID while inpatient Daily ileostomy care Strict I&O monitoring of ostomy output Added on loperamide 4 mg QID (max of 16 mg daily) to slow patient's frequent ostomy output in the setting of acute illness, volume loss, and electrolyte deficiencies #Left lower extremity neuropathy Patient reports decreased sensation in the left lower extremity when compared to the right, as well as it being cold to touch with throbbing pain at times Left lower extremity arterial Doppler ordered, pending AM vitamin B6 level Disposition: Continued stay on [facility] telemetry VTE PPx: Fondaparinux 2.5 mg SQ q24h Would benefit from referral/being set up with [facility] as well as PCP referral on discharge. Admission and Anticipated Discharge Date Admission Date: March 12, 2025 Supervising Physician Co-Signing Physician Notes Attending Attestation: Chart reviewed, care plan d/w LISA [place]. I agree w/ the silverio components of his documentation. Of note - I did not perform a personal bedside visit today. Replace low B12 with IM injections. Due to short gut syndrome will need lifelong IM injections. Severe Fe def - will also need parenteral Fe indefinitely; will not absorb PO Fe. Left leg numbness - check B1, B6 levels - could easily have def of such. Cont stress dose steroids. Need to quantitate her ileostomy output to determine next steps for treatment of dumping. Chapin Garcia MD Subjective Mrs. Black reports improvement in her symptoms this morning. While she slept poorly, she is feeling when her breathing is better this morning. Ate toast and a banana for breakfast, and is currently "hungry". She is still feeling lightheaded when she gets up to go to the bathroom, and is coughing up lots of mucus. She also thinks that she might have "overdid it" with a nebulizer this morning. Her wheezing has started to resolve, and she is requesting that we decrease her DuoNeb frequency. In regard to her dumping syndrome, patient reports that she takes "48 mg" of Imodium daily to stop her frequent ostomy output. She does not currently follow with a GI doctor around here, and reports she needs help getting connected with a new PCP. ROS: Patient endorses low-grade fever overnight, productive cough, lightheadedness with movements, achiness, chills, PAUL, rib pain from coughing, and lower abdominal pressure (which she attributes to the pressure from her left ovary mass). Patient denies SOB at rest, hemoptysis, chest pain, chest palpitations, and N/V/D. Review of Systems Review of Systems: See HPI above Physical Exam Physical Exam: General: no acute distress; resting in bed; non-toxic appearing; well-nourished; cooperative; SpO2 97% on RA HEENT: normocephalic, atraumatic; no scleral icterus; PERRLA w/ EOMs intact; vision and hearing grossly intact Neck: supple; no lymphadenopathy; trachea midline Skin: warm, dry without signs of tenting; no cyanosis; no rashes, bruising, lesions, or erythema noted CV: chest wall NTP; RRR around 60 bpm; S1/S2 normal; no murmurs/rubs/gallops; pulses intact and symmetric at radial, DP, and PT Lungs: no acute respiratory distress; mild cough symmetrical chest wall expansion; minimal wheezing in the lower lung maldonado bilaterally (R>L) ABD: Soft, NTP in all 4 quadrants; ileostomy in place, mild erythema noted surrounding the pouch; BS present MSK: no tics or fasciculations; no edema noted in the LEs b/l, nonerythematous; patient demonstrated to wiggle toes bilaterally and lift legs off the bed bilaterally with equal strength Neuro: A&Ox3; normal mood and affect; fluent speech; no focal deficits; patient reports diminished sensation in her left lower extremity when compared to her right; patient's left lower extremity is slightly colder than right; pulses intact at DP/PT; neurovascular intact Results & Data Results & Data Vital Signs (Past 12 Hours) Vital Signs Temp Pulse Pulse Pulse Resp BP BP 03/13/25 07:56 36.5 C 59 L 17 112/73 03/13/25 07:23 56 L 18 03/13/25 07:04 54 L 03/13/25 03:57 36.6 C 56 L 20 124/79 03/12/25 23:38 36.6 C 70 20 03/12/25 22:37 85 03/12/25 22:21 72 17 03/12/25 21:49 03/12/25 21:49 36.6 C 74 20 03/12/25 21:15 75 16 120/87 03/12/25 20:50 75 18 BP Pulse Ox O2 Del Method 03/13/25 07:56 97 Room Air 03/13/25 07:23 96 Room Air 03/13/25 07:04 03/13/25 03:57 98 Room Air 03/12/25 23:38 106/68 99 Room Air 03/12/25 22:37 03/12/25 22:21 97 Room Air 03/12/25 21:49 Room Air 03/12/25 21:49 111/75 97 Room Air 03/12/25 21:15 98 03/12/25 20:50 121/83 97 Room Air PG Care Time/CCT Total # of Minutes Spent Total Time Spent with Patient: Total time spent is greater than 50% in coordination of care (as documented) at patient's floor/unit and/or counseling patient: Coding [place] [address] SUB INP/OBS CARE 3/50MIN Patient Type Established Medical Decision Making High Complexity Diagnoses Syncope R55 Infection due to human metapneumovirus (hMPV) B34.8 Hypokalemia E87.6 Hyponatremia E87.1 Ileostomy status Z93.2
[2025-03-13] MEDS ORDERED: CYANOCOBALAMIN 1000 MCG/ML VIAL IM SCH (09:00)
[2025-03-13] MEDS: LOPERAMIDE HCL 2 MG CAP PO SCH (09:29)
[2025-03-13] MEDS: CYANOCOBALAMIN 1000 MCG/ML VIAL IM ONE (09:29)
[2025-03-13] MEDS: POTASSIUM CHLORIDE CRTAB 20 MEQ TABCR PO SCH (09:29)
[2025-03-13] MEDS: PANTOprazole 40 MG TAB PO SCH (09:30)
[2025-03-13] MEDS: buprenorphine HCL 8 MG SUBL SL SCH (09:39)
[2025-03-13] MEDS ORDERED: ALBUT/IPRATROP 3MG/0.5MG NEB 3 ML VIAL NEB PRN (10:59)
[2025-03-13] MEDS ORDERED: IRON SUCROSE 300 MG in SODIUM CHLORIDE 0.9% 250 ML IV ONE (12:00)
--- NOTE | 2025-03-13 12:22 | Ultrasound Report ---
US arterial duplex LE LT CLINICAL HISTORY: LLE dimished sensation, throbbing pain, cold COMPARISON STUDY: None FINDINGS: There are normal velocities and waveforms at the arteries of the left lower extremity. IMPRESSION: No arterial narrowing or occlusion seen at the left lower extremity. ACT 112: Negative or not required by law. Electronically signed by: Genaro Mcgill M.D. 03/13/2025 12:20 PM
[2025-03-13] MEDS: CALCIUM CARBONATE 1250MG TAB PO SCH (12:45)
[2025-03-13] MEDS: THIAMINE HCL 100 MG in SYRINGE 9 ML IV STA (13:27)
[2025-03-13] MEDS: LACTATED RINGER'S 1,000 ML IV SCH (17:10)
[2025-03-14 06:30] LABS: Hematocrit (blood only) 35.7 % (37.0-47.0); Hemoglobin 10.6 g/dl (12.0-16.0); Mean Corpuscular Hgb Conc 29.7 g/dL (32.0-36.0); Mean Corpuscular Volume 80.8 fL (80.0-100.0); Mean Platelet Volume 10.2 fL (9.4-12.4); Platelet Count 210 K/uL (130-400); RDW Coefficient of Variation 16.7 % (11.5-14.5); RDW Standard Deviation 48.8 fL (36.4-46.3); Red Blood Count 4.42 M/uL (4.20-5.40); White Blood Count 6.56 K/ul (4.8-10.8)
[2025-03-14 06:33] LABS: Calcium 9.5 mg/dl (8.6-10.3); Creatinine Clr Calc Pharmacy 83.9 ml/min; Potassium 4.3 mmol/L (3.5-5.1)
--- NOTE | 2025-03-14 07:22 | Electrocardiogram Report ---
Test Reason : Blood Pressure : */* mmHG Vent. Rate : 79 BPM Atrial Rate : 79 BPM P-R Int : 178 ms QRS Dur : 82 ms QT Int : 386 ms P-R-T Axes : 70 80 59 degrees QTcB Int : 442 ms Normal sinus rhythm When compared with ECG of 30-Dec-2024 14:26, Nonspecific T wave abnormality no longer evident in Inferior leads Confirmed by Emiliano Garcia ([id number] on 03/14/2025 7:21:52 AM Referred By: REFERRED SELF Confirmed By: Emiliano Garcia
[2025-03-14] MEDS: THIAMINE HCL 100 MG in SYRINGE 9 ML IV SCH (08:52)
--- NOTE | 2025-03-14 14:24 | Hospitalist Progress Note ---
Date of Service March 14, 2025 Assessment & Plan (1) Syncope: (2) Infection due to human metapneumovirus (hMPV): (3) Hypokalemia: (4) Hyponatremia: (5) Ileostomy status: (6) Neuropathy of left lower extremity: Plan Mrs. Black is a 39-year-old female who presented on 03/12 for syncopal episode. Positive for human metapneumovirus on arrival with significant electrolyte normalities on arrival. #Syncope Syncopal episode on 03/12; on blood thinners Patient denies head strike, she did land hard on her right arm, and believes she hit her arm on her head/the hardwood floor Head CT revealed no acute findings Orthostatic vitals negative on arrival Patient reports she has been lightheaded all week SOLE FILLER Suspect this episode of syncope was secondary to acute upper respiratory illness and electrolyte abnormalities Continuous telemetry monitoring #Human metapneumovirus hMPV (+) on arrival CXR revealed no acute findings Droplet/contact isolation precautions Supportive care Acetaminophen as needed for pain/fever IS, flutter valve DuoNebs 3 mL PRN Guaifenesin 600 mg p.o. BID #Left lower extremity neuropathy Patient reports that she cannot feel anything in her left lower extremity when compared to the right, and she occasionally has "throbbing" pain in her leg Clinically, LLE is neurovascularly intact Arterial LLE duplex ultrasound revealed no arterial narrowing or occlusion Vitamin B6 level ordered, pending While suspect this is paresthesia secondary to vitamin deficiencies (in the setting of short gut syndrome and ileostomy status), patient does relay a family history of MS/blurry vision She is requesting a brain MRI with and without contrast if vitamin B6 level comes back negative #Hypokalemia Potassium trend 2.6 -> 4.4 -> 4.3 H/o hypokalemia; on daily supplements S/p K riders 10 mEq x 5 S/p potassium supplementation p.o. 20mEq Continue to trend BMP Urine electrolytes ordered, pending Upon discharge, patient is concerned that she will become hypokalemic again, and that her home p.o. supplementation is not working May consider changing to powder or liquid formulation upon discharge #Hyponatremia | Hypochloremia | Dehydration (resolved) Na 135 -> 140 on arrival Additional IVF as needed Suspect that her dehydration is largely secondary to ostomy output and dumping syndrome Imodium 4 mg QID (patient reports she takes Imodium 48 mg at home daily); max dose 16 mg while in the hospital # Iron deficiency anemia Chronic; Hgb 11.6 on arrival Clinically, no signs of active bleeding on physical exam Iron panel: Iron 25, TIBC 620, transferrin 443 Poor candidate for p.o. given short gut syndrome/ileostomy status Patient reports she has anaphylactic reactions to IV Venofer infusions Per review of prior hematology notes, it has been recommended that Feraheme 510 mg IV x 2 doses to be administered with premedication (Pepcid 20 mg IV, Tylenol 650 mg p.o., dexamethasone 20 mg IV) Feraheme is currently non-formulary here Recommend following up with his PCP for outpatient infusion Trend CBC #Vitamin B12 deficiency Vitamin B12 low at 167 on arrival Cyanocobalamin 1000 mcg IM x 1 #Crohn's disease | short gut syndrome | ileostomy status | chronic steroid use Patient currently takes prednisone 10 mg daily; however, in the week SOLE FILLER, 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-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 While patient is not hypotensive on admission, given acute illness + low/normal blood pressure, will increase prednisone dosage to 20 mg BID while inpatient Daily ileostomy care Strict I&O monitoring of ostomy output Added on loperamide 4 mg QID (max of 16 mg daily) to slow patient's frequent ostomy output in the setting of acute illness, volume loss, and electrolyte deficiencies Disposition: Continued stay on [facility] telemetry; from a respiratory standpoint, she has had significant since arrival; possible D/C on 03/14 or 03/15 pending clinical progression and slowing of ostomy output/dumping VTE PPx: Fondaparinux 2.5 mg SQ q24h Would benefit from referral/being set up with [facility] as well as PCP referral on discharge. Admission and Anticipated Discharge Date Admission Date: March 12, 2025 Supervising Physician Co-Signing Physician Notes Attending Attestation: Chart reviewed, care plan d/w LISA Cunningham. I agree w/ the silverio components of his documentation. Of note - I did not perform a personal bedside visit today. Replace low B12 with IM injections. Give another injection today. Due to short gut syndrome will need lifelong IM injections of such. Severe Fe def - will also need parenteral Fe indefinitely; will not absorb PO Fe. Unfortunately she has venofer allergy; see Mr Cunningham's documentation re: this. Left leg numbness - check B1, B6 levels - could easily have def of such. Replace low B12. Arterial duplex study of LLE - normal. Cont stress dose steroids. Need to quantitate her ileostomy output to determine next steps for treatment of presumed ileostomy high-output. Imodium in meantime. Chapin Garcia MD Subjective Mrs. Black reports her respiratory symptoms have largely improved. She is still having difficulty sleeping, but she reports she is eating well, and her shortness of breath is improving a bit each day. She still experiencing mild cough, wheezing, and pleuritic CP, but believes that her ribs might be hurting due to coughing so much. Additionally, she expresses some concern for her left lower extremity, which still has sensation deficits when compared to the right. She does report she has a family history of MS, and is concerned regarding lapses in memory as well as ongoing blurry vision. While her ostomy output is improving and slowing down, she does have concerns that things will not improve after she leaves the hospital, and would like to gain plan a long-term plan for her ongoing hypokalemia. ROS: Patient endorses mild PAUL, dry cough, pleuritic CP (rib pain from coughing), LLE numbness/tingling, ongoing blurry vision, and generalized weakness. Patient denies fever, chills, night sweats, dizziness/lightheadedness with ambulation, chest pain, chest palpitations, SOB at rest, abdominal pain, or chris ges in urinary habits. Touched base with nursing staff and patient about quantifying I&O of the ostomy to measure GI losses. While output is improving today, would like to see slowing prior to discharge. Review of Systems Review of Systems: See HPI above Physical Exam Physical Exam: General: no acute distress; resting in bed; nursing staff bedside; non-toxic appearing; well-nourished; cooperative; SpO2 96% on RA HEENT: normocephalic, atraumatic; no scleral icterus; PERRLA w/ EOMs intact; vision and hearing grossly intact Neck: supple; no lymphadenopathy; trachea midline Skin: warm, dry without signs of tenting; no cyanosis; no rashes, bruising, lesions, or erythema noted CV: chest wall NTP; RRR around 60 bpm; S1/S2 normal; no murmurs/rubs/gallops; pulses intact and symmetric at radial, DP, and PT Lungs: no acute respiratory distress; mild cough; symmetrical chest wall expansion; no adventitious lung sounds auscultated; no wheezing ABD: Soft, NTP in all 4 quadrants; ileostomy in place, mild erythema noted surrounding the pouch; BS present MSK: no tics or fasciculations; no edema noted in the LEs b/l, nonerythematous; patient demonstrated to wiggle toes bilaterally and lift legs off the bed bilaterally with equal strength Neuro: A&Ox3; normal mood and affect; fluent speech; no focal deficits; patient reports diminished sensation in her left lower extremity when compared to her right; patient's left lower extremity is slightly colder than right; pulses intact at DP/PT; neurovascular intact Results & Data Results & Data Vital Signs (Past 12 Hours) Vital Signs Temp Pulse Resp BP Pulse Ox O2 Del Method 03/14/25 11:28 36.7 C 55 L 17 115/75 96 Room Air 03/14/25 07:43 36.5 C 73 17 119/78 98 Room Air 03/14/25 03:30 36.8 C 59 L 18 108/65 98 Room Air PG Care Time/CCT Total # of Minutes Spent Total Time Spent with Patient: Total time spent is greater than 50% in coordination of care (as documented) at patient's floor/unit and/or counseling patient: Coding [place] [address] SUB INP/OBS CARE 3/50MIN Patient Type Established Medical Decision Making High Complexity Diagnoses Syncope R55 Infection due to human metapneumovirus (hMPV) B34.8 Hypokalemia E87.6 Hyponatremia E87.1 Ileostomy status Z93.2 Neuropathy of left lower extremity G57.92
[2025-03-14 14:57] LABS: Urine Chloride < 15 mmol/L; Urine Potassium 62.2 mmol/L; Urine Sodium 25 mmol/L
[2025-03-14] MEDS ORDERED: FAMOTIDINE 20 MG TAB PO PRN (20:51)
[2025-03-14] MEDS: CALCIUM CARBONATE 500 MG CHEWABLE TAB PO ONE (21:28)
--- NOTE | 2025-03-15 08:50 | Hospitalist Progress Note ---
Date of Service March 15, 2025 Assessment & Plan (1) Syncope: (2) Infection due to human metapneumovirus (hMPV): (3) Hypokalemia: (4) Hyponatremia: (5) Ileostomy status: (6) Neuropathy of left lower extremity: Plan Mrs. Black is a 39-year-old female who presented on 03/12 for syncopal episode. Positive for human metapneumovirus on arrival with significant electrolyte normalities on arrival. #Syncope Syncopal episode on 03/12; on blood thinners Patient denies head strike, she did land hard on her right arm, and believes she hit her arm on her head/the hardwood floor Head CT revealed no acute findings Orthostatic vitals negative on arrival Patient reports she has been lightheaded all week AUDIT LEAD Suspect this episode of syncope was secondary to acute upper respiratory illness and electrolyte abnormalities Continuous telemetry monitoring #Human metapneumovirus hMPV (+) on arrival CXR revealed no acute findings Droplet/contact isolation precautions Supportive care Acetaminophen as needed for pain/fever IS, flutter valve DuoNebs 3 mL PRN Guaifenesin 600 mg p.o. BID #Left lower extremity neuropathy Patient reports that she cannot feel anything in her left lower extremity when compared to the right, and she occasionally has "throbbing" pain in her leg Clinically, LLE is neurovascularly intact Arterial LLE duplex ultrasound revealed no arterial narrowing or occlusion Vitamin B6 level ordered, pending While suspect this is paresthesia secondary to vitamin deficiencies (in the setting of short gut syndrome and ileostomy status), patient does relay a family history of MS/blurry vision She is requesting a brain MRI with and without contrast if vitamin B6 level comes back negative #Hypokalemia Potassium trend 2.6 -> 4.4 -> 4.3 H/o hypokalemia; on daily supplements S/p K riders 10 mEq x 5 S/p potassium supplementation p.o. 20mEq Continue to trend BMP Urine electrolytes ordered, pending Upon discharge, patient is concerned that she will become hypokalemic again, and that her home p.o. supplementation is not working May consider changing to powder or liquid formulation upon discharge #Hyponatremia | Hypochloremia | Dehydration (resolved) Na 135 -> 140 on arrival Additional IVF as needed Suspect that her dehydration is largely secondary to ostomy output and dumping syndrome Imodium 4 mg QID (patient reports she takes Imodium 48 mg at home daily); max dose 16 mg while in the hospital # Iron deficiency anemia Chronic; Hgb 11.6 on arrival Clinically, no signs of active bleeding on physical exam Iron panel: Iron 25, TIBC 620, transferrin 443 Poor candidate for p.o. given short gut syndrome/ileostomy status Patient reports she has anaphylactic reactions to IV Venofer infusions Per review of prior hematology notes, it has been recommended that Feraheme 510 mg IV x 2 doses to be administered with premedication (Pepcid 20 mg IV, Tylenol 650 mg p.o., dexamethasone 20 mg IV) Feraheme is currently non-formulary here Recommend following up with his PCP for outpatient infusion Trend CBC #Vitamin B12 deficiency Vitamin B12 low at 167 on arrival Cyanocobalamin 1000 mcg IM x 1 #Crohn's disease | short gut syndrome | ileostomy status | chronic steroid use Patient currently takes prednisone 10 mg daily; however, in the week AUDIT LEAD, 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-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 While patient is not hypotensive on admission, given acute illness + low/normal blood pressure, will increase prednisone dosage to 20 mg BID while inpatient Daily ileostomy care Strict I&O monitoring of ostomy output Added on loperamide 4 mg QID (max of 16 mg daily) to slow patient's frequent ostomy output in the setting of acute illness, volume loss, and electrolyte deficiencies Disposition: Continued stay on [facility] telemetry; from a respiratory standpoint, she has had significant since arrival; possible D/C on 03/14 or 03/15 pending clinical progression and slowing of ostomy output/dumping VTE PPx: Fondaparinux 2.5 mg SQ q24h Would benefit from referral/being set up with [facility] as well as PCP referral on discharge. Admission and Anticipated Discharge Date Admission Date: March 12, 2025 Results & Data Results & Data Vital Signs (Past 12 Hours) Vital Signs Temp Pulse Resp BP Pulse Ox O2 Del Method 03/15/25 07:42 97.9 F 18 110/72 98 Room Air 03/15/25 03:24 98.2 F 59 L 16 126/75 98 Room Air 03/14/25 22:00 98.2 F 60 16 110/73 98 Room Air PG Care Time/CCT Total # of Minutes Spent Total Time Spent with Patient: Total time spent is greater than 50% in coordination of care (as documented) at patient's floor/unit and/or counseling patient: Coding Diagnoses Syncope R55 Infection due to human metapneumovirus (hMPV) B34.8 Hypokalemia E87.6 Hyponatremia E87.1 Ileostomy status Z93.2 Neuropathy of left lower extremity G57.92
[2025-03-15] MEDS: CYANOCOBALAMIN 1000 MCG/ML VIAL IM SCH (08:59)
--- NOTE | 2025-03-15 13:43 | History & Physical Report ---
Date of Service March 15, 2025 Assessment & Plan Admission and Anticipated Discharge Date Admission Date: March 12, 2025 History of Present Illness Chief Complaint: Evangelina is a pleasant 39-year-old female with severe Crohn's disease. She is admitted currently for a pneumonia which is improving and they are planning discharge later today. As requested by Dr. Bryan to take a look at a [place] drain that has been in her abdominal wall for over a year. She had what according to the patient is a total proctocolectomy with a permanent ileostomy. She states that she was told that visiting nurses would pull the Rigober[place] drain out 2 weeks after discharge however they told her they were not allowed to pull it. She therefore is just been living with it. Primary Care Provider: NO PCP Allergies Allergy/AdvReac Type Severity Reaction Status Date / Time adalimumab [From Humira] Allergy Severe Anaphylaxis Verified 12/30/24 15:51 aspirin Allergy Severe ANAPHYLAXIS Verified 12/30/24 15:51 bee venom protein (honey bee) Allergy Severe Anaphylaxis Verified 12/30/24 15:51 infliximab Allergy Severe ANAPHYLAXIS Verified 12/30/24 15:51 ketorolac [From Toradol] Allergy Severe Swelling Verified 12/30/24 15:51 of Lip/Tongue/Throat NSAIDS (Non-Steroidal Allergy Severe THROAT Verified 12/30/24 15:51 Anti-Inflamma SWELLING Penicillins Allergy Severe Anaphylaxis/FULL Verified 12/30/24 15:51 BODY RASH Sulfa (Sulfonamide Allergy Severe throat Verified 12/30/24 15:51 Antibiotics) swelling azathioprine AdvReac Intermediate MIGRAINE Verified 12/30/24 15:51 Home Medications Medication Instructions Recorded Confirmed Type epinephrine 0.3 mg/0.3 mL 0.3 mg IM Q4H PRN Allergic Reaction 08/26/22 03/12/25 History injection, auto-injector buprenorphine HCl 8 mg sublingual 8 mg sublingual UD 10/02/23 03/12/25 History tablet calcium carbonate 500 mg PO QDL 12/30/24 03/12/25 History pantoprazole 40 mg tablet,delayed 40 mg PO DAILY 03/12/25 03/12/25 History release (Protonix) potassium 1 tab PO QAM 03/12/25 03/12/25 History fondaparinux 2.5 mg/0.5 mL 2.5 mg (0.5 mL) subcut .EVERY 24 03/15/25 Rx subcutaneous solution syringe HOURS #30 mL loperamide 2 mg capsule 4 mg (2 x 2 mg) PO QID #120 caps 03/15/25 Rx potassium chloride 20 mEq 20 meq PO QAM #30 tabs 03/15/25 Rx tablet,extended release(part/cryst) prednisone 10 mg tablet 10 mg PO QAM #30 tabs 03/15/25 Rx Past Med/Surg History Problem List (Updated 03/14/25 @ 14:49 by Kiran Cunningham PA-C) Neuropathy of left lower extremity Infection due to human metapneumovirus (hMPV) (Acute) Acute hypokalemia (Acute) Syncope and collapse (Acute) Hyponatremia Infection due to human metapneumovirus (hMPV) Syncope Immunocompromised (Acute) Failure of outpatient treatment (Acute) Hypokalemia (Acute) Cellulitis (Acute) Hypomagnesemia (Acute) Acute dehydration (Acute) Precordial chest pain (Acute) Abdominal infection Anemia B12 deficiency Chest pressure Adnexal cyst Back pain Adrenal cyst Severe protein-calorie malnutrition ARIANNE (acute kidney injury) (Acute) Acute cellulitis (Acute) FTT (failure to thrive) in adult Acute hypotension (Acute) Shortness of breath (Acute) Acute dehydration (Acute) Hypomagnesemia (Acute) Microcytic anemia Hypocalcemia Hypoglycemia Lesion of ovary Abdominal pain (Acute) UTI (urinary tract infection) (Acute) Acute hypokalemia (Acute) Metabolic acidosis (Acute) Iron deficiency anemia (Acute) Endometriosis (Chronic) Medical History (Updated 03/14/25 @ 14:49 by Kiran Cunningham PA-C) Short gut syndrome Crohn's disease of colon with fistula Chest tightness Lower back pain Bilateral flank pain Postoperative abdominal pain Sepsis History of DVT (deep vein thrombosis) History of MRSA infection "per records" Chronic pain Enterocutaneous fistula Severe anemia Protein calorie malnutrition Small bowel obstruction Rheumatoid arthritis Surgical History (Updated 03/13/25 @ 05:25 by Chapin Garcia MD) Ileostomy status H/O colectomy "total colectomy with ileoanal anastomosis 03/2006" History of rectal surgery "hundreds of fistula surgeries" S/P exploratory laparotomy endometriosis H/O resection of large bowel multiple resections and clean outs Family History Other Blood clot in vein Social History Smoking Status: Former smoker Tobacco Type: Cigarettes Cigarettes Per Day: Unknown.; Second Hand Exposure: No; Do You Dip or Chew Tobacco: No; Hx Alcohol Use: No Hx Substance Use: No Preferred Language: Greek Communication Ability: Effective Director Media Required: No Beliefs That Will Affect Care: None Current Living Situation: Family Current Living Situation Comment: Lives with daughter Feels Safe at Home: Yes Assistive Devices: None Results & Data Vital Signs (Past 12 Hours) Vital Signs Temp Pulse Resp BP Pulse Ox O2 Del Method 03/15/25 11:03 36.7 C 17 104/68 98 Room Air 03/15/25 07:42 36.6 C 18 110/72 98 Room Air 03/15/25 03:24 36.8 C 59 L 16 126/75 98 Room Air Code Status & VTE Plan VTE Prophylaxis Plan VTE Prophylaxis will be ordered: Yes
--- NOTE | 2025-03-15 13:50 | Surgery Consultation ---
Date of Consultation March 15, 2025 Assessment & Plan (1) Foreign body (FB) in soft tissue: Visiting nurses were supposed to remove this 2 weeks after her discharge from [facility] last year. They felt that they were not qualified to do this and so the patient has simply been living with it. I am going to obtain a dry CT scan just to ensure I am not missing something. Presuming the CT scan does not show any alarming findings we will remove her drain prior to her discharge later this afternoon. (2) Crohn's disease: History of Present Illness Attending Physician: Reinaldo Bryan MD History of Present Illness Evangelina is a pleasant 39-year-old female with severe Crohn's disease. She is admitted currently for a pneumonia which is improving and they are planning discharge later today. As requested by Dr. Bryan to take a look at a [place] drain that has been in her abdominal wall for over a year. She had what according to the patient is a total proctocolectomy with a permanent ileostomy. She states that she was told that visiting nurses would pull the Rigoberto drain out 2 weeks after discharge however they told her they were not allowed to pull it. She therefore is just been living with it. She is currently at her baseline regarding her GI tract/Crohn's disease. Allergies Allergy/AdvReac Type Severity Reaction Status Date / Time adalimumab [From Humira] Allergy Severe Anaphylaxis Verified 12/30/24 15:51 aspirin Allergy Severe ANAPHYLAXIS Verified 12/30/24 15:51 bee venom protein (honey bee) Allergy Severe Anaphylaxis Verified 12/30/24 15:51 infliximab Allergy Severe ANAPHYLAXIS Verified 12/30/24 15:51 ketorolac [From Toradol] Allergy Severe Swelling Verified 12/30/24 15:51 of Lip/Tongue/Throat NSAIDS (Non-Steroidal Allergy Severe THROAT Verified 12/30/24 15:51 Anti-Inflamma SWELLING Penicillins Allergy Severe Anaphylaxis/FULL Verified 12/30/24 15:51 BODY RASH Sulfa (Sulfonamide Allergy Severe throat Verified 12/30/24 15:51 Antibiotics) swelling azathioprine AdvReac Intermediate MIGRAINE Verified 12/30/24 15:51 Home Medications Medication Instructions Recorded Confirmed Type epinephrine 0.3 mg/0.3 mL 0.3 mg IM Q4H PRN Allergic Reaction 08/26/22 03/12/25 History injection, auto-injector buprenorphine HCl 8 mg sublingual 8 mg sublingual UD 10/02/23 03/12/25 History tablet calcium carbonate 500 mg PO QDL 12/30/24 03/12/25 History pantoprazole 40 mg tablet,delayed 40 mg PO DAILY 03/12/25 03/12/25 History release (Protonix) potassium 1 tab PO QAM 03/12/25 03/12/25 History fondaparinux 2.5 mg/0.5 mL 2.5 mg (0.5 mL) subcut .EVERY 24 03/15/25 Rx subcutaneous solution syringe HOURS #30 mL loperamide 2 mg capsule 4 mg (2 x 2 mg) PO QID #120 caps 03/15/25 Rx potassium chloride 20 mEq 20 meq PO QAM #30 tabs 03/15/25 Rx tablet,extended release(part/cryst) prednisone 10 mg tablet 10 mg PO QAM #30 tabs 03/15/25 Rx Patient History Medical History (Updated 03/15/25 @ 13:46 by Steven Dugan DO) Short gut syndrome Crohn's disease of colon with fistula Chest tightness Lower back pain Bilateral flank pain Postoperative abdominal pain Sepsis History of DVT (deep vein thrombosis) History of MRSA infection "per records" Chronic pain Enterocutaneous fistula Severe anemia Protein calorie malnutrition Small bowel obstruction Rheumatoid arthritis Surgical History (Updated 03/13/25 @ 05:25 by Chapin Garcia MD) Ileostomy status H/O colectomy "total colectomy with ileoanal anastomosis 03/2006" History of rectal surgery "hundreds of fistula surgeries" S/P exploratory laparotomy endometriosis H/O resection of large bowel multiple resections and clean outs Family History Other Blood clot in vein Social History Smoking Status: Former smoker Tobacco Type: Cigarettes Cigarettes Per Day: Unknown.; Second Hand Exposure: No; Do You Dip or Chew Tobacco: No; Hx Alcohol Use: No Hx Substance Use: No Preferred Language: Lithuanian Communication Ability: Effective Potato Spotter Required: No Beliefs That Will Affect Care: None Current Living Situation: Family Current Living Situation Comment: Lives with daughter Feels Safe at Home: Yes Assistive Devices: None Physical Exam Constitutional: WD/WN, vitals as above no acute distress and not ill appearing Eyes: PERRL, conjunctivae normal, anicteric sclerae EOM intact bilaterally ENMT: external ear and nose normal, oropharynx normal Ears: no hearing imp airment Neck: trachea midline, no thyromegaly Respiratory: normal respiratory effort; no respiratory distress and does not use accessory muscles Cardiovascular: Rate/Rhythm: regular rate and regular rhythm Gastrointestinal (Abdomen): Soft. Nontender. Right lower quadrant ileostomy in place and looks healthy. There is a [place] drain entering the abdominal wall and exiting lateral it and then tied together in the middle externally. Small amount of cloudy drainage. No erythema or signs of infection. Well-healed midline incision present Skin: no rashes, warm and dry Psychiatric: Orientation: alert, oriented x 3 and cooperative Results & Data Vital Signs (Past 12 Hours) Vital Signs Temp Pulse Resp BP Pulse Ox O2 Del Method 03/15/25 11:03 36.7 C 17 104/68 98 Room Air 03/15/25 07:42 36.6 C 18 110/72 98 Room Air 03/15/25 03:24 36.8 C 59 L 16 126/75 98 Room Air PG Care Time/CCT Total # of Minutes Spent Total Time Spent with Patient: Total time spent is greater than 50% in coordination of care (as documented) at patient's floor/unit and/or counseling patient: Coding Level of Care Code 66464 IN/OBS CONSULT LVL 2,35M Diagnoses Foreign body (FB) in soft tissue M79.5 Crohn's disease K50.90
--- NOTE | 2025-03-15 14:32 | CT Scan Report ---
ABDOMEN AND PELVIS CT WITHOUT CONTRAST CT DOSE: 616.05 mGy.cm HISTORY: r/o fistula TECHNIQUE: Multiaxial CT images of the abdomen and pelvis were performed without contrast. A dose lo wering technique was utilized adhering to the principles of ALARA. COMPARISON STUDY: 05/23/2024 FINDINGS: ABDOMEN: Gallbladder is contracted. Liver, spleen, pancreas, and adrenal glands have an unremarkable non-IV contrast appearance. Kidneys show no hydronephrosis or calculi. No abdominal aortic aneurysm. Pelvis: There is a 9 cm greatest axial dimension by 6 cm craniocaudad lobulated cystic finding in the left pelvis which is stable, possible lymphocele. It causes mass effect on the nondistended urinary bladder. There is stable colectomy with right lower quadrant ostomy. There is a stable drain in the a nterior superficial subcutaneous tissues of the mid pelvis just left of midline. There is stable line ar/stranding soft tissue density in the superficial subcutaneous tissues at the medial aspect of the gluteal cleft bilaterally just below the anus. No other bowel inflammation or obstruction seen. No fr ee fluid or free air. No enlarged adenopathy. Osseous structures: No acute osseous findings. IMPRESSION: 1. Stable stranding/linear soft tissue density medial aspect of the gluteal clefts bilaterally just b elow the anus. Differential diagnosis includes scarring and small perianal fistulas. Suggest clinical correlation for draining fistula site. No drainable abscess seen in the region. 2. No other acute findings seen. Otherwise as described. ACT 112: Negative or not required by law. The above report was generated using voice recognition software. It may contain grammatical, syntax o r spelling errors. Electronically signed by: Genaro Mcgill M.D. 03/15/2025 2:31 PM
[2025-03-15 15:44] VITALS: BP 122/70; PULSE 63; RESP 16; TEMP 98.4; O2SAT 97
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
== END 2025-03-15 16:32 | disposition home or self-care (01) | DRG 202 ==
LOC: ED 13:40 → 2W 19:52 → SUATTDRO 19:52 → 2W 21:15

== ENCOUNTER 2025-06-04 20:22 | Observation (INO) ==
[2025-06-04] MEDS: SODIUM CHLORIDE 0.9% 1,000 ML IV ONE (20:42)
[2025-06-04 20:51] LABS: Hematocrit (blood only) 37.7 % (37.0-47.0); Hemoglobin 11.6 g/dl (12.0-16.0); Immature Granulocytes # (auto) 0.08 K/uL (0.01-0.20); Immature Granulocytes % (auto) 0.9 %; Mean Corpuscular Hemoglobin 24.2 pg (25.0-34.0); Mean Corpuscular Volume 78.7 fL (80.0-100.0); Platelet Count 208 K/uL (130-400); RDW Standard Deviation 52.5 fL (36.4-46.3); Red Blood Count 4.79 M/uL (4.20-5.40); White Blood Count 8.62 K/ul (4.8-10.8)
[2025-06-04 21:18] LABS: INR 1.0 (0.9-1.1); Prothrombin Time 10.6 Seconds (9.0-12.0)
[2025-06-04 21:47] LABS: Alanine Aminotransferase 29 U/L (7-52); Albumin Globulin Ratio 1.1 (0.9-2); Alkaline Phosphatase 65 U/L (34-104); Anion Gap 11 (3-11); Bilirubin,Total 0.8 mg/dl (0.2-1.0); Blood Urea Nitrogen 12 mg/dl (6-23); Calcium 10.6 mg/dl (8.6-10.3); Carbon Dioxide 36 mmol/L (21-32); Chloride 93 mmol/L (98-107); Creatinine Clr Calc Pharmacy 71.5 ml/min; Globulin 3.4 gm/dl (2.5-4.0); Glucose 95 mg/dl (70-99(Fasting)); Lipase 31 U/L (11-82); Magnesium 2.0 mg/dl (1.7-2.4); Sodium 140 mmol/L (136-145); Total Protein 7.0 gm/dl (6.0-8.3)
[2025-06-04 22:30] LABS: Potassium 3.4 mmol/L (3.5-5.1)
--- NOTE | 2025-06-05 | Emergency Department Note ---
History of Present Illness General Chief Complaint: Cardiac Assessment Stated Complaint: CHEST PAIN, N/V X2 DAYS Time Seen by Provider: 06/04/25 20:32 History of Present Illness Provider Complaint: chest pain Onset (ago): day(s) 2 Duration: intermittent Onset: during rest Pain Location: substernal Pain Radiation: none Severity: similar to previous episodes (Patient reports she thinks she has low magnesium and potassium as this is how she presents when she has the symptoms.) Maximum Pain Intensity: 7 Quality: + aching Relieved By: + nothing Exacerbated By: + nothing Context: no recent illness, no recent surgery, no recent immobilization, no recent travel, no trauma/injury or no new medications Associated symptoms: + nausea and + vomiting; no dyspnea, no syncope, no palpitations, no fever, no cough or no leg swelling No abdominal pain. Related Data On Oral Contraceptives: No Home Medications Medication Instructions Recorded Confirmed Type epinephrine 0.3 mg/0.3 mL 0.3 mg IM Q4H PRN Allergic Reaction 08/26/22 06/04/25 History injection, auto-injector buprenorphine HCl 8 mg sublingual 8 mg sublingual UD 10/02/23 06/04/25 History tablet ammonium lactate 5 % lotion 1 applic EXT BID dermatitis #226 04/01/25 06/04/25 Rx (Lac-Hydrin Five) grams hciuvbif-reu-yipgj acid 0.4 1 tab PO QAM #30 tabs 04/01/25 06/04/25 Rx mg-lycopene 300 mcg-lutein 250 mcg tablet (Cerovite Senior) gabapentin 300 mg capsule 300 mg PO TID #30 caps 05/02/25 06/04/25 Rx loperamide 2 mg capsule 4 mg (2 x 2 mg) PO QID #120 caps 05/12/25 06/04/25 Rx pantoprazole 40 mg tablet,delayed 40 mg PO DAILY #90 tabs 05/12/25 06/04/25 Rx release potassium chloride 20 mEq oral 20 meq PO BID #100 ea 05/12/25 06/04/25 Rx packet (Klor-Con) prednisone 10 mg tablet 20 mg (2 x 10 mg) PO DAILY #90 tabs 05/12/25 06/04/25 Rx pyridoxine (vitamin B6) 50 mg 100 mg (2 x 50 mg) PO DAILY #90 05/12/25 06/04/25 Rx capsule caps fondaparinux 2.5 mg/0.5 mL 2.5 mg (0.5 mL) subcut DAILY #15 mL 05/25/25 06/04/25 Rx subcutaneous solution syringe Allergies Allergy/AdvReac Type Severity Reaction Status Date / Time adalimumab [From Humira] Allergy Severe Anaphylaxis Verified 05/06/25 11:07 aspirin Allergy Severe ANAPHYLAXIS Verified 05/06/25 11:07 bee venom protein (honey bee) Allergy Severe Anaphylaxis Verified 05/06/25 11:07 infliximab Allergy Severe ANAPHYLAXIS Verified 05/06/25 11:07 ketorolac [From Toradol] Allergy Severe Swelling Verified 05/06/25 11:07 of Lip/Tongue/Throat NSAIDS (Non-Steroidal Allergy Severe THROAT Verified 05/06/25 11:07 Anti-Inflamma SWELLING Penicillins Allergy Severe Anaphylaxis/FULL Verified 05/06/25 11:07 BODY RASH Sulfa (Sulfonamide Allergy Severe throat Verified 05/06/25 11:07 Antibiotics) swelling azathioprine AdvReac Intermediate MIGRAINE Verified 05/06/25 11:07 Past Med/Surg History Problem List (Updated 06/05/25 @ 00:00 by Sebastien Salmon MD) Chest pain (Acute) Abnormal brain MRI Vitamin B6 deficiency Acute hypokalemia (Acute) Dizziness (Acute) Foreign body (FB) in soft tissue Crohn's disease Neuropathy of left lower extremity Infection due to human metapneumovirus (hMPV) (Acute) Acute hypokalemia (Acute) Immunocompromised (Acute) Failure of outpatient treatment (Acute) Acute dehydration (Acute) Abdominal infection Anemia B12 deficiency Adnexal cyst Back pain Adrenal cyst Severe protein-calorie malnutrition FTT (failure to thrive) in adult Acute hypotension (Acute) Acute dehydration (Acute) Hypomagnesemia (Acute) Microcytic anemia Hypocalcemia Hypoglycemia Lesion of ovary Abdominal pain (Acute) UTI (urinary tract infection) (Acute) Acute hypokalemia (Acute) Metabolic acidosis (Acute) Iron deficiency anemia (Acute) Endometriosis (Chronic) Medical History Short gut syndrome Crohn's disease of colon with fistula Chest tightness Lower back pain Bilateral flank pain Postoperative abdominal pain Sepsis History of DVT (deep vein thrombosis) History of MRSA infection "per records" Chronic pain Enterocutaneous fistula Severe anemia Protein calorie malnutrition Small bowel obstruction Rheumatoid arthritis Surgical History Ileostomy status H/O colectomy "total colectomy with ileoanal anastomosis 03/2006" History of rectal surgery "hundreds of fistula surgeries" S/P exploratory laparotomy endometriosis H/O resection of large bowel multiple resections and clean outs Family History Grandmother (Paternal) Colorectal cancer Myocardial infarction Mother Myocardial infarction Heart disease Father Myocardial infarction Grandfather (Maternal) Myocardial infarction Grandfather (Paternal) Myocardial infarction Other Blood clot in vein Ovarian cancer Denies family history of Prostate cancer Breast cancer Social History Smoking Status: Former smoker Tobacco Type: Cigarettes Age Started Using Tobacco: 14; Age Quit Using Tobacco: 35; packs per day: 1; Cigarettes Per Day: Unknown.; Second Hand Exposure: Yes; Do You Dip or Chew Tobacco: No; Hx Alcohol Use: No Hx Substance Use: No Preferred Language: Hebrew Communication Ability: Effective Visual Impairment: No Limitations Hearing Ability: Normal Adult Secondary Education Instructor Required: No Beliefs That Will Affect Care: None marital status: Current Living Situation: Other Current Living Situation Comment: home with daughter and son in law current occupational status: disabled Feels Safe at Home: Yes Childhood Exposure to Second-Hand Smoke: No Diet: regular caffeine: Yes Dental Care, Regularly: No Physical Activity Frequency: Daily Seatbelt Use: never Sunscreen Use: Yes Assistive Devices: Walker Physical Exam Vital Signs Vital Signs - 24 hr 06/04/25 20:27 06/04/25 20:27 06/04/25 20:27 Temperature 36.8 C Temperature Source Oral Pulse Rate 90 Pulse Rate [Apical] Respiratory Rate 16 Respiratory Effort / Characteristics Non-Labored Spontaneous Blood Pressure 146/101 H Blood Pressure [Right Arm] Blood Pressure Mean 116 Blood Pressure Mean [Right Arm] Pulse Oximetry 96 96 Oxygen Delivery Method Room Air Room Air Room Air Sepsis Recent Fever Within 48 Hours No Sepsis New/Unexplained Change in Mental Status No Sepsis Action Taken by Nursing No Action Required 06/04/25 20:27 06/04/25 20:27 06/04/25 20:30 Temperature Temperature Source Pulse Rate 90 92 H Pulse Rate [Apical] 90 Respiratory Rate 16 16 Respiratory Effort / Characteristics Non-Labored Spontaneous Blood Pressure Blood Pressure [Right Arm] 146/101 H Blood Pressure Mean Blood Pressure Mean [Right Arm] 116 Pulse Oximetry 96 96 Oxygen Delivery Method Room Air Room Air Sepsis Recent Fever Within 48 Hours Sepsis New/Unexplained Change in Mental Status Sepsis Action Taken by Nursing 06/04/25 20:53 06/04/25 22:00 06/04/25 23:00 Temperature Temperature Source Pulse Rate 90 90 Pulse Rate [Apical] 96 H Respiratory Rate 16 16 18 Respiratory Effort / Characteristics Non-Labored Spontaneous Blood Pressure 132/88 Blood Pressure [Right Arm] 126/83 Blood Pressure Mean 109 Blood Pressure Mean [Right Arm] 97 Pulse Oximetry 96 96 98 Oxygen Delivery Method Room Air Room Air Room Air Sepsis Recent Fever Within 48 Hours Sepsis New/Unexplained Change in Mental Status Sepsis Action Taken by Nursing 06/04/25 23:09 Temperature 36.8 C Temperature Source Oral Pulse Rate Pulse Rate [Apical] Respiratory Rate Respiratory Effort / Characteristics Blood Pressure Blood Pressure [Right Arm] Blood Pressure Mean Blood Pressure Mean [Right Arm] Pulse Oximetry Oxygen Delivery Method Sepsis Recent Fever Within 48 Hours Sepsis New/Unexplained Change in Mental Status Sepsis Action Taken by Nursing Physical Exam GENERAL: oriented to person, place, and time. appears well-developed and well- nourished. HENT: Exam performed. - Head: Normocephalic and atraumatic. EYES: Conjunctivae and EOM are normal. Right eye exhibits no discharge. Left eye exhibits no discharge. No scleral icterus. NECK: Normal range of motion. Neck supple. No JVD present. CV: Normal rate, regular rhythm, normal heart sounds and intact distal pulses. There is no peripheral edema. Palpable radial pulses bue. PULM/CHEST: Effort normal and breath sounds normal. No respiratory distress. No stridor. no wheezes. no rales. ABD: The abdomen is soft. There is no tenderness. Ostomy bag present. NEURO: Motor and sensation grossly intact. SKIN: Skin is warm and dry. He is not diaphoretic. PSYCH: normal mood and affect. Behavior is normal. Judgment and thought content normal. Course Course 2031: The patient was evaluated in room C10. A complete history and physical exam was performed Cardiac monitoring: An order was placed for continuous cardiac monitoring. The monitor shows a rate of 80 with sinus rhythm interpreted by mt 2240: Vital signs stable. Labs and imaging are unremarkable. Patient will be admitted for chest pain rule out ACS. Administered Medications Discontinued Medications Sodium Chloride (Nss) 1,000 mls @ 999 mls/hr IV .Q1H1M ONE Stop: 06/04/25 21:34 Last Infusion: 06/04/25 23:00 Dose: Infused Documented By: Admin: 06/04/25 20:42 Dose: 999 mls/hr Documented By: KIMBERLY Medical Decision Making Laboratory Data Attestation: I reviewed the patient's lab results. 06/04/25 20:35 06/04/25 21:58 Labs: Lab Results 06/04/25 06/04/25 06/04/25 Range/Units 20:35 21:58 22:07 WBC 8.62 (4.8-10.8) K/ul RBC 4.79 (4.20-5.40) M/uL Hgb 11.6 L (12.0-16.0) g/dl POC Hgb 11.2 L (12.0-16.0) g/dl Hct 37.7 (37.0-47.0) % POC Hct 33 L (37-47) % MCV 78.7 L (80.0-100.0) fL MCH 24.2 L (25.0-34.0) pg MCHC 30.8 L (32.0-36.0) g/dL RDW Std Deviation 52.5 H (36.4-46.3) fL RDW Coeff of [place] 18.2 H (11.5-14.5) % Plt Count 208 (130-400) K/uL MPV 9.4 (9.4-12.4) fL Immature Gran % (Auto) 0.9 % Neut % (Auto) 77.0 % Lymph % (Auto) 14.7 % [place] % (Auto) 6.1 % Eos % (Auto) 1.2 % Baso % (Auto) 0.1 % Neut # (Auto) 6.63 H (1.40-6.50) K/uL Lymph # (Auto) 1.27 (1.20-3.40) K/uL [place] # (Auto) 0.53 (0.11-0.59) K/uL Eos # (Auto) 0.10 (0.00-0.50) K/uL Baso # (Auto) 0.01 (0.00-0.20) K/uL Immature Gran # (Auto) 0.08 (0.01-0.20) K/uL PT 10.6 (9.0-12.0) Seconds INR 1.0 (0.9-1.1) POC Sodium 141 (135-144) mmol/L Sodium 140 (136-145) mmol/L POC Potassium 4.0 (3.3-5.0) mmol/L Potassium TNP 3.4 L POC Chloride 97 L (101-112) mmol/L Chloride 93 L (98-107) mmol/L Carbon Dioxide 36 H (21-32) mmol/L POC Total CO2 38 H (24-31) mmol/L Anion Gap 11 (3-11) POC Anion Gap 11.0 L (16-25) mmol/L POC BUN 9 (7-18) mg/dl BUN 12 (6-23) mg/dl Creatinine 0.89 (0.6-1.2) mg/dl POC Creatinine 0.9 (0.6-1.3) mg/dl Est Cr Clr Drug Dosing 71.5 ml/min eGFR 83.48 BUN/Creatinine Ratio 13.5 (10-20) Glucose 95 (70-99(Fasting)) mg/dl POC Glucose (other) 88 (70-99) mg/dl Calcium 10.6 H (8.6-10.3) mg/dl POC Ioniz Calcium Saadia 1.19 (1.12-1.32) mmol/l Magnesium 2.0 (1.7-2.4) mg/dl Total Bilirubin 0.8 (0.2-1.0) mg/dl AST TNP 27 ALT 29 (7-52) U/L Alkaline Phosphatase 65 (34-104) U/L Troponin I High Sens 2.9 (0-14) pg/ml Total Protein 7.0 (6.0-8.3) gm/dl Albumin 3.6 (3.4-5.0) gm/dl Globulin 3.4 (2.5-4.0) gm/dl Albumin/Globulin Ratio 1.1 (0.9-2) Lipase 31 (11-82) U/L Imaging Data Chest x-ray: Attestation: I personally reviewed and interpreted this imaging study as follows: My impression: Chest x-ray negative. Airway clear. No pneumothorax. No consolidation. No cardiomegaly or cephalization.. No free air under the diaphragm. No fractures of the skeletal structures. ECG Data Attestation: I personally reviewed and interpreted this ECG as follows: Rate (beats per minute): 82 Rhythm: normal sinus Findings: no ST depression, no ST elevation or no prolonged QT Additional Comments: QRS 68 MDM Narrative 2031: The patient was evaluated in room C10. A complete history and physical exam was performed Cardiac monitoring: An order was placed for continuous cardiac monitoring. The monitor shows a rate of 80 with sinus rhythm interpreted by me 2240: Vital signs stable. Labs and imaging are unremarkable. Patient will be admitted for chest pain rule out ACS. Impression & Plan Chest pain Discharge Plan Visit Data Chief Complaint: Cardiac Assessment Stated Complaint: CHEST PAIN, N/V X2 DAYS ED Provider: Sebastien Salmon Discharge Problem: Chest pain Patient Disposition: Admitted As Inpatient Condition: Fair Forms Stand Alone Forms: [facility] Prescriptions Prescriptions: No Action prednisone 10 mg tablet 20 mg PO DAILY Qty: 90 1RF loperamide 2 mg capsule 4 mg PO QID Qty: 120 0RF pantoprazole 40 mg tablet,delayed release (DR/EC) 40 mg PO DAILY Qty: 90 1RF potassium chloride [Klor-Con] 20 mEq packet 20 meq PO BID Qty: 100 1RF pyridoxine (vitamin B6) 50 mg capsule 100 mg PO DAILY Qty: 90 1RF fondaparinux 2.5 mg/0.5 mL syringe 2.5 mg subcut DAILY Qty: 15 3RF epinephrine 0.3 mg/0.3 mL Auto-Injector 0.3 mg IM Q4H PRN (Reason: Allergic Reaction) buprenorphine HCl 8 mg tablet, sublingual 8 mg SUBLINGUAL UD Rx Instructions: per pt she usually does 1 tab po qam, second tab around 3pm and half tab hs Lac-Hydrin Five 5 % Lotion 1 applic EXT BID Qty: 226 0RF Cerovite Senior 0.4 mg-300 mcg- 250 mcg Tablet 1 tab PO QAM Qty: 30 0RF gabapentin 300 mg capsule 300 mg PO TID Qty: 30 0RF Referrals Referrals: Yuri Bazzi DO [Primary Care Provider] - Discharge Problem: Chest pain Qualifiers: Chest pain type: unspecified Qualified Code(s): R07.9 - Chest pain, unspecified
[2025-06-05] MEDS: SODIUM CHLORIDE 0.9% 500 ML IV SCH (00:43)
--- NOTE | 2025-06-05 00:56 | History & Physical Report ---
Date of Service June 05, 2025 Assessment & Plan (1) Chest pain: (2) Dizziness: (3) Crohn's disease: (4) Neuropathy of left lower extremity: (5) History of DVT (deep vein thrombosis): (6) Short gut syndrome: Plan This is a 39 year old female with a PMH of short gut syndrome, hx of Crohn's s/p resection and s/p colostomy, hx of DVTs on Fondaparinux - coming in with nausea/vomiting and subsequent chest pain. Chest Pain - likely from sinus tachycardia due to dehydration - IV fluids ordered - trend trops (first one negative) - EKG done and negative for ST-T wave changes LUE Swelling - check LUE doppler r/o DVT - cont Fondaparinux Hx of Crohn's - s/p resection and ostomy - IV fluids ordered - monitor lytes History of Present Illness Chief Complaint: Chest Pain Primary Care Provider: Yuri Bazzi, DO This is a 39 year old female with a PMH of short gut syndrome, hx of Crohn's s/p resection and s/p colostomy, hx of DVTs on Fondaparinux - coming in with nausea/vomiting and subsequent chest pain. Patient states that she's had nausea/vomiting for the past 1-2 days. Has not had any significant PO intake at that time. States that she came in today due to her feeling palpitations. On arrival here, patient has sinus tachycardia. EKG done and no significant changes noted. troponin drawn and negative. Patient states she's been out of Fondaparinux and feels her L arm is tight and painful; has had blood clots in the past per patient. Allergies Allergy/AdvReac Type Severity Reaction Status Date / Time adalimumab [From Humira] Allergy Severe Anaphylaxis Verified 05/06/25 11:07 aspirin Allergy Severe ANAPHYLAXIS Verified 05/06/25 11:07 bee venom protein (honey bee) Allergy Severe Anaphylaxis Verified 05/06/25 11:07 infliximab Allergy Severe ANAPHYLAXIS Verified 05/06/25 11:07 ketorolac [From Toradol] Allergy Severe Swelling Verified 05/06/25 11:07 of Lip/Tongue/Throat NSAIDS (Non-Steroidal Allergy Severe THROAT Verified 05/06/25 11:07 Anti-Inflamma SWELLING Penicillins Allergy Severe Anaphylaxis/FULL Verified 05/06/25 11:07 BODY RASH Sulfa (Sulfonamide Allergy Severe throat Verified 05/06/25 11:07 Antibiotics) swelling azathioprine AdvReac Intermediate MIGRAINE Verified 05/06/25 11:07 Home Medications Medication Instructions Recorded Confirmed Type epinephrine 0.3 mg/0.3 mL 0.3 mg IM Q4H PRN Allergic Reaction 08/26/22 06/04/25 History injection, auto-injector buprenorphine HCl 8 mg sublingual 8 mg sublingual UD 10/02/23 06/04/25 History tablet ammonium lactate 5 % lotion 1 applic EXT BID dermatitis #226 04/01/25 06/04/25 Rx (Lac-Hydrin Five) grams psokrqhs-fxa-fdhkb acid 0.4 1 tab PO QAM #30 tabs 04/01/25 06/04/25 Rx mg-lycopene 300 mcg-lutein 250 mcg tablet (Cerovite Senior) gabapentin 300 mg capsule 300 mg PO TID #30 caps 05/02/25 06/04/25 Rx loperamide 2 mg capsule 4 mg (2 x 2 mg) PO QID #120 caps 05/12/25 06/04/25 Rx pantoprazole 40 mg tablet,delayed 40 mg PO DAILY #90 tabs 05/12/25 06/04/25 Rx release potassium chloride 20 mEq oral 20 meq PO BID #100 ea 05/12/25 06/04/25 Rx packet (Klor-Con) prednisone 10 mg tablet 20 mg (2 x 10 mg) PO DAILY #90 tabs 05/12/25 06/04/25 Rx pyridoxine (vitamin B6) 50 mg 100 mg (2 x 50 mg) PO DAILY #90 05/12/25 06/04/25 Rx capsule caps fondaparinux 2.5 mg/0.5 mL 2.5 mg (0.5 mL) subcut DAILY #15 mL 05/25/25 06/04/25 Rx subcutaneous solution syringe Past Med/Surg History Problem List (Updated 06/05/25 @ 00:00 by Sebastien Salmon MD) Chest pain (Acute) Abnormal brain MRI Vitamin B6 deficiency Acute hypokalemia (Acute) Dizziness (Acute) Foreign body (FB) in soft tissue Crohn's disease Neuropathy of left lower extremity Infection due to human metapneumovirus (hMPV) (Acute) Acute hypokalemia (Acute) Immunocompromised (Acute) Failure of outpatient treatment (Acute) Acute dehydration (Acute) Abdominal infection Anemia B12 deficiency Adnexal cyst Back pain Adrenal cyst Severe protein-calorie malnutrition FTT (failure to thrive) in adult Acute hypotension (Acute) Acute dehydration (Acute) Hypomagnesemia (Acute) Microcytic anemia Hypocalcemia Hypoglycemia Lesion of ovary Abdominal pain (Acute) UTI (urinary tract infection) (Acute) Acute hypokalemia (Acute) Metabolic acidosis (Acute) Iron deficiency anemia (Acute) Endometriosis (Chronic) Medical History Short gut syndrome Crohn's disease of colon with fistula Chest tightness Lower back pain Bilateral flank pain Postoperative abdominal pain Sepsis History of DVT (deep vein thrombosis) History of MRSA infection "per records" Chronic pain Enterocutaneous fistula Severe anemia Protein calorie malnutrition Small bowel obstruction Rheumatoid arthritis Surgical History Ileostomy status H/O colectomy "total colectomy with ileoanal anastomosis 03/2006" History of rectal surgery "hundreds of fistula surgeries" S/P exploratory laparotomy endometriosis H/O resection of large bowel multiple resections and clean outs Family History Grandmother (Paternal) Colorectal cancer Myocardial infarction Mother Myocardial infarction Heart disease Father Myocardial infarction Grandfather (Maternal) Myocardial infarction Grandfather (Paternal) Myocardial infarction Other Blood clot in vein Ovarian cancer Denies family history of Prostate cancer Breast cancer Social History Smoking Status: Former smoker Tobacco Type: Cigarettes Age Started Using Tobacco: 14; Age Quit Using Tobacco: 35; packs per day: 1; Cigarettes Per Day: Unknown.; Second Hand Exposure: Yes; Do You Dip or Chew Tobacco: No; Hx Alcohol Use: No Hx Substance Use: No Preferred Language: Belarusian Communication Ability: Effective Visual Impairment: No Limitations Hearing Ability: Normal Dental Mechanic Required: No Beliefs That Will Affect Care: None marital status: Current Living Situation: Other Current Living Situation Comment: home with daughter and son in law current occupational status: disabled Feels Safe at Home: Yes Childhood Exposure to Second-Hand Smoke: No Diet: regular caffeine: Yes Dental Care, Regularly: No Physical Activity Frequency: Daily Seatbelt Use: never Sunscreen Use: Yes Assistive Devices: Walker Review of Systems Review of Systems: Constitutional: No Weight Change, No Fever, No Chills, No Night Sweats, No Fatigue, No Malaise ENT/Mouth: No Hearing Changes, No Ear Pain, No Nasal Congestion, No Sinus P ain, No Hoarseness, No sore throat, No Rhinorrhea, No Swallowing Difficulty Eyes: No Eye Pain, No Swelling, No Redness, No Foreign Body, No Discharge, No Vision Changes Cardiovascular: +Chest Pain, No SOB, No PND, No Dyspnea on Exertion, No Orthopnea, No Claudication, No Edema, +Palpitations Respiratory: No Cough, No Sputum, No Wheezing, No Smoke Exposure, No Dyspnea Gastrointestinal: No Nausea, No Vomiting, No Diarrhea, No Constipation, No Pain, No Heartburn, No Anorexia, No Dysphagia, No Hematochezia, No Melena, No Flatulence, No Jaundice Genitourinary: No Dysmenorrhea, No DUB, No Dyspareunia, No Dysuria, No Urinary Frequency, No Hematuria, No Urinary Incontinence, No Urgency, No Flank Pain, No Urinary Flow Changes, No Hesitancy Musculoskeletal: No Arthralgias, No Myalgias, No Joint Swelling, No Joint Stiffness, No Back Pain, No Neck Pain, No Injury History Skin: No Skin Lesions, No Pruritis, No Hair Changes, No Breast/Skin Changes, No Nipple Discharge Neuro: No Weakness, No Numbness, No Paresthesias, No Loss of Consciousness, No Syncope, No Dizziness, No Headache, No Coordination Changes, No Recent Falls Psych: No Anxiety/Panic, No Depression, No Insomnia, No Personality Changes, No Delusions, No Rumination, No SI/HI/AH/VH, No Social Issues, No Memory Changes, No Violence/Abuse Hx., No Eating Concerns Heme/Lymph: No Bruising, No Bleeding, No Transfusions History, No Lymphadenopathy Endocrine: No Polyuria, No Polydipsia, No Temperature Intolerance Physical Exam Physical Exam: VITALS: Reviewed. WEIGHT/BMI reviewed. GEN: Healthy appearing, well-developed, NAD. PSYCH: Good Judgment. AOx3. Normal memory, mood, and affect. HEENT -Head: NC/AT; -Eyes: PERRL, EOMI. No discharge or redn ess; -Ears: External ears are normal. Normal TMs. -Nose: Normal nares. -Mouth and throat: MMM. Normal gums, muc deshaun, palate,. Good dentition. NECK: Supple, with no masses. CV: RRR, no m/r/g. LUNGS: CTAB, no w/r/c. ABD: Soft, NT/ND, NBS, no masses or organomegaly. +ostomy : N/A SKIN: Warm, well perfused. No skin rashes or abnormal lesions. MSK: No deformities, Normal gait. EXT: No clubbing, cyanosis, or edema. NEURO: Ambulating with no limitations. Normal muscle strength and tone. No focal deficits. Results & Data Results & Data Vital Signs (Past 12 Hours) Vital Signs Temp Pulse Pulse Resp BP BP Pulse Ox 06/04/25 23:09 36.8 C 06/04/25 23:00 90 18 132/88 98 06/04/25 22:00 96 H 16 126/83 96 06/04/25 20:53 90 16 96 06/04/25 20:30 92 H 06/04/25 20:27 90 16 96 06/04/25 20:27 90 16 146/101 H 96 06/04/25 20:27 96 06/04/25 20:27 36.8 C 90 16 146/101 H 96 06/04/25 20:27 O2 Del Method 06/04/25 23:09 06/04/25 23:00 Room Air 06/04/25 22:00 Room Air 06/04/25 20:53 Room Air 06/04/25 20:30 06/04/25 20:27 Room Air 06/04/25 20:27 Room Air 06/04/25 20:27 Room Air 06/04/25 20:27 Room Air 06/04/25 20:27 Room Air Laboratory Results 06/04/25 06/04/25 06/04/25 22:07 21:58 20:35 WBC 8.62 RBC 4.79 Hgb 11.6 L POC Hgb 11.2 L Hct 37.7 POC Hct 33 L MCV 78.7 L MCH 24.2 L MCHC 30.8 L RDW Std Deviation 52.5 H RDW Coeff of [place] 18.2 H Plt Count 208 MPV 9.4 Immature Gran % (Auto) 0.9 Neut % (Auto) 77.0 Lymph % (Auto) 14.7 [place] % (Auto) 6.1 Eos % (Auto) 1.2 Baso % (Auto) 0.1 Neut # (Auto) 6.63 H Lymph # (Auto) 1.27 [place] # (Auto) 0.53 Eos # (Auto) 0.10 Baso # (Auto) 0.01 Immature Gran # (Auto) 0.08 PT 10.6 INR 1.0 POC Sodium 141 Sodium 140 POC Potassium 4.0 Potassium 3.4 L TNP POC Chloride 97 L Chloride 93 L Carbon Dioxide 36 H POC Total CO2 38 H Anion Gap 11 POC Anion Gap 11.0 L POC BUN 9 BUN 12 Creatinine 0.89 POC Creatinine 0.9 Est Cr Clr Drug Dosing 71.5 eGFR 83.48 BUN/Creatinine Ratio 13.5 Glucose 95 POC Glucose (other) 88 Calcium 10.6 H POC Ioniz Calcium Saadia 1.19 Magnesium 2.0 Total Bilirubin 0.8 AST 27 TNP ALT 29 Alkaline Phosphatase 65 Troponin I High Sens 2.9 Total Protein 7.0 Albumin 3.6 Globulin 3.4 Albumin/Globulin Ratio 1.1 Lipase 31 Code Status & VTE Plan VTE Prophylaxis Plan VTE Prophylaxis will be ordered: Yes PG Care Time/CCT Total # of Minutes Spent Total Time Spent with Patient: Total time spent is greater than 50% in coordination of care (as documented) at patient's floor/unit and/or counseling patient: Coding Level of Care Code 31300 INT INP/OBS CARE 2/55MIN Diagnoses Chest pain R07.9 Chest pain type: unspecified Dizziness R42 Crohn's disease K50.90 Neuropathy of left lower extremity G57.92 History of DVT (deep vein thrombosis) Z86.718 Short gut syndrome K90.829 (1) Chest pain Chest pain type: unspecified Qualified Code(s): R07.9 - Chest pain, unspecified
--- NOTE | 2025-06-05 01:29 | Ultrasound Report ---
EXAM: US venous doppler UE LT CLINICAL HISTORY: r/o DVT TECHNIQUE: Ultrasound examination of left upper extremity veins was performed in real time and duplex. One or more of the following were performed- spectral analysis, waveform analysis, and pulsed Doppler. COMPARISON: None. FINDINGS: Normal phasic, non-pulsatile, and spontaneous flow is noted in the left Internal jugular, subclavian, axillary, brachial, basilic, cephalic, radial, and ulnar veins. Visualized veins of the left upper extremity demonstrate normal compressibility. No sonographic evidence of acute deep vein thrombosis (DVT) is detected in the visualized veins of the upper extremity. Limited visualization of left cephalic vein. Compression and Augmentation: All evaluated veins compress fully with applied transducer pressure. Augmentation of venous flow is noted with distal compression. Additional Findings: No evidence of intraluminal thrombus. IMPRESSION: No sonographic evidence of acute DVT detected at the time of examination. Disclaimer: DVT could be missed early in the disease when clot burden is minimal. For patients with moderate and high pretest probability of DVT and negative ultrasound, the [employer] clinical guidelines recommend testing with a D-dimer assay or repeat ultrasound in 5-7 days. If symptoms worsen, the Society of radiologists in ultrasound recommends repeating ultrasound even earlier. Electronically signed by Michael Wilkinson 06-05-2025 01:29 AM
[2025-06-05] MEDS ORDERED: MAGNESIUM HYDROXIDE SUSP 30 ML UDC PO PRN (01:42)
[2025-06-05] MEDS ORDERED: ALUMINUM/MAGNESIUM SUSP 30 ML UDC PO PRN (01:42)
[2025-06-05] MEDS ORDERED: NITROGLYCERIN SL 0.4 MG/TAB TAB SL PRN (01:42)
[2025-06-05] MEDS ORDERED: ONDANSETRON INJ 2 MG/ML 2 ML VIAL IV PRN (01:42)
[2025-06-05] MEDS: ACETAMINOPHEN 325 MG TAB PO PRN (01:53)
[2025-06-05] MEDS: MELATONIN 3 MG TAB PO PRN (01:54)
--- NOTE | 2025-06-05 02:33 | XRay Report ---
Exam(s): XR CXR 1 VIEW EXAM: XR Chest, 1 View CLINICAL HISTORY: Chest pain, nonspecific. TECHNIQUE: Frontal view of the chest. COMPARISON: 03/29/2025. FINDINGS: Lungs: No infiltrate. No atelectasis. No CHF. Pleural space: No pleural effusion. No pneumothorax. Heart: Unremarkable. No cardiomegaly. Mediastinum: Unremarkable. Normal mediastinal contour. Bones/joints: Unremarkable. No acute fracture. IMPRESSION: No acute abnormality. Electronically signed by: Amos Maguire M.D. 06/05/25 02:32 AM
[2025-06-05 06:34] LABS: Hematocrit (blood only) 36.1 % (37.0-47.0); Hemoglobin 11.1 g/dl (12.0-16.0); Immature Granulocytes # (auto) 0.06 K/uL (0.01-0.20); Immature Granulocytes % (auto) 0.8 %; Mean Corpuscular Hemoglobin 24.4 pg (25.0-34.0); Mean Corpuscular Volume 79.3 fL (80.0-100.0); Platelet Count 223 K/uL (130-400); RDW Standard Deviation 53.4 fL (36.4-46.3); Red Blood Count 4.55 M/uL (4.20-5.40); White Blood Count 7.39 K/ul (4.8-10.8)
[2025-06-05 07:52] LABS: Anion Gap 10.0 (3-11); Blood Urea Nitrogen 15.0 mg/dl (6-23); Calcium 9.4 mg/dl (8.6-10.3); Carbon Dioxide 34.0 mmol/L (21-32); Chloride 99.0 mmol/L (98-107); Cholesterol 211.0 mg/dl (0-200); Creatinine Clr Calc Pharmacy 61.6 ml/min; Glucose 118.0 mg/dl (70-99(Fasting)); HDL Cholesterol 80.0 mg/dl; Lipase 45.0 U/L (11-82); Potassium 4.1 mmol/L (3.5-5.1); Sodium 143.0 mmol/L (136-145); Triglycerides 176.0 mg/dl (0-150)
[2025-06-05] MEDS: FONDAPARINUX 2.5 MG/0.5 ML SYR SQ SCH (09:08)
[2025-06-05] MEDS: LOPERAMIDE HCL 2 MG CAP PO SCH (09:08)
[2025-06-05] MEDS: PYRIDOXINE HCL 50 MG TAB PO SCH (09:09)
[2025-06-05] MEDS: predniSONE 20 MG TAB PO SCH (09:09)
[2025-06-05] MEDS: POTASSIUM CHLORIDE PWD 20 MEQ PACK PO SCH (09:09)
[2025-06-05] MEDS: OPTIRAY 320 125ml IV ONE (10:31)
--- NOTE | 2025-06-05 10:36 | CT Scan Report ---
CT ANGIOGRAM OF THE CHEST CLINICAL HISTORY: Chest pain COMPARISON STUDY: Chest x-ray dated 06/04/2025. Chest CT dated 12/30/2024. TECHNIQUE: Following the IV administration of 61 cc of Optiray 320, CT angiogram of the chest was per formed from the upper abdomen to the thoracic inlet utilizing the pulmonary embolus protocol. Images are reviewed in the axial, sagittal, and coronal planes. 3-D MIPS images are created and assessed. IV contrast was administered without complication. A dose lowering technique was utilized adhering to the principles of ALARA. There is streak artifact from the left arm which could not be elevated above the chest. CT DOSE: 433.08 mGy.cm FINDINGS: Thyroid: Imaged portions of the thyroid gland are normal in size and attenuation. Thoracic aorta: The thoracic aorta is normal in caliber and demonstrates standard 3-vessel arch anato my. No dissection is seen. Pulmonary vasculature: The pulmonary trunk is normal in caliber. There are no filling defects identif ied in main, lobar, or segmental pulmonary branches to suggest pulmonary embolus. Heart: The heart is normal in size and without pericardial effusion. Lungs and pleural spaces: There is no airspace consolidation 2 cardiomegaly. Trace pleural effusions are observed. The trachea and central airways are clear. Mediastinum: There is no mediastinal lymphadenopathy. [place]: Clear. Axillae: There is no axillary lymphadenopathy. Upper abdomen: Partially visualized upper abdominal viscera is within normal limits. Skeletal structures: No lytic or blastic bony lesions are seen. IMPRESSION: 1. There is no evidence of pulmonary embolus in the main, lobar, or segmental pulmonary arteries. 2. No airspace consolidation is identified. 3. Trace pleural effusions. 4. Additional findings as above. ACT 112: Negative or not required by law. Electronically signed by: Olivier Camarena M.D. 06/05/2025 10:34 AM
--- NOTE | 2025-06-05 12:10 | Electrocardiogram Report ---
Test Reason : Blood Pressure : */* mmHG Vent. Rate : 82 BPM Atrial Rate : 82 BPM P-R Int : 166 ms QRS Dur : 68 ms QT Int : 342 ms P-R-T Axes : 65 3 44 degrees QTcB Int : 399 ms Normal sinus rhythm When compared with ECG of 29-Mar-2025 01:32, QT has shortened Confirmed by Emiliano Garcia ([id number]) on 06/05/2025 12:10:36 PM Referred By: REFERRED SELF Confirmed By: Emiliano Garcia
[2025-06-05 17:02] LABS: Chlamydia pneumoniae PCR Not Detected (NotDetected); Coronavirus 229E PCR Not Detected (NotDetected); Coronavirus CoV-2 (COVID19)PCR Not Detected (NotDetected); Coronavirus HKU1 PCR Not Detected (NotDetected); Coronavirus NL63 PCR Not Detected (NotDetected); Coronavirus OC43PCR Not Detected (NotDetected); Human Metapneumovirus PCR Not Detected (NotDetected); Parainfluenza Virus 1 PCR Not Detected (NotDetected); Parainfluenza Virus 2 PCR Not Detected (NotDetected); Parainfluenza Virus 3 PCR Not Detected (NotDetected); Parainfluenza Virus 4 PCR Not Detected (NotDetected); Respiratory Syncytial VirusPCR Not Detected (NotDetected); Rhinovirus/Enterovirus PCR Not Detected (NotDetected)
[2025-06-05] MEDS: CALCIUM CARBONATE 500 MG CHEWABLE TAB PO PRN (18:34)
[2025-06-05] MEDS: LORazepam 1 MG TAB PO STA (20:07)
[2025-06-05] MEDS: BUTALBITAL/ACETAMIN/CAFFEINE TAB PO PRN (20:28)
[2025-06-06 07:32] VITALS: BP 117/78; PULSE 97; RESP 20; TEMP 98.2; O2SAT 97
--- NOTE | 2025-06-06 09:15 | Discharge Summary ---
Discharge Summary Date of Service June 06, 2025 Principal Dx & Hospital Course #1 = Principal Diagnosis (1) Chest pain: - likely from sinus tachycardia due to dehydration - IV fluids ordered - trend trops (first one negative) - EKG done and negative for ST-T wave changes - CTA negative for PE -pt's symptoms resolved -atypical chest pain, likely related to anxiety (2) Crohn's disease: - s/p resection and ostomy - IV fluids ordered - monitor lytes (3) History of DVT (deep vein thrombosis): - cont Fondaparinux (4) Short gut syndrome: Plan This is a 39 year old female with a PMH of short gut syndrome, hx of Crohn's s/p resection and s/p colostomy, hx of DVTs on Fondaparinux - coming in with nausea/vomiting and subsequent chest pain. Admission HPI Per Admitting Provider This is a 39 year old female with a PMH of short gut syndrome, hx of Crohn's s/p resection and s/p colostomy, hx of DVTs on Fondaparinux - coming in with nausea/vomiting and subsequent chest pain. Patient states that she's had nausea/vomiting for the past 1-2 days. Has not had any significant PO intake at that time. States that she came in today due to her feeling palpitations. On arrival here, patient has sinus tachycardia. EKG done and no significant changes noted. troponin drawn and negative. Patient states she's been out of Fondaparinux and feels her L arm is tight and painful; has had blood clots in the past per patient. Discharge Exam GENERAL APPEARANCE NAD, activity normal for age, well developed/ well nourished, no cyanosis, pallor, or diaphoresis. EYES lids/conjunctiva normal. EARS/NOSE/THROAT Mucous membranes moist, nares normal, lips/teeth normal uvula midline without oral pharyngeal erythema, exudate or swelling TMs normal bilaterally. No lymphangitis/lymphedema. HEAD/NECK normocephalic atraumatic, no facial trauma, neck is supple. RESPIRATORY respiratory effort normal, speaks in full sentences, no tripod position, no accessory muscle use. Lungs clear to auscultation without rhonchi, wheezes, rales CARDIAC Regular rate and rhythm, no edema. ABDOMINAL Soft, ND/NT. No evidence of fluid wave. No pulsatile masses on exam, rebound tenderness, Gee sign or pain over Mcburney's point. MUSCLES/EXTREMITIES No abnormal range of motion, no swelling. SKIN Warm, pink and dry. No rashes, dermatoses, petechiae or lesions. NEUROLOGICAL Speech is clear and appropriate. Normal level of consciousness. Gait and coordination are normal. 5/5 strength in all extremities. PSYCH Normal mood and affect. Judgement/competence is appropriate Discharge Plan Discharge Items Patient Disposition: Home - Self-Care Reason For Visit: CHEST PAIN Discharge Diagnosis: Atypical chest pain Condition on Discharge: Fair Activity: Resume your previous activity Non-emergency contact: Primary Care Provider Call non-emergency contact if: you have any medication questions Follow-up/Referrals: Yuri Bazzi DO [Primary Care Provider] - Diet: Regular Addtl Attending Provider Instructions: Follow up with PMD in 2 weeks Pending Studies at Discharge: No Stand-Alone Forms: My Hoods, Smoking Cessation Medications and DC Order Prescriptions: Continued prednisone 10 mg tablet 20 mg PO DAILY Qty: 90 1RF loperamide 2 mg capsule 4 mg PO QID Qty: 120 0RF pantoprazole 40 mg tablet,delayed release (DR/EC) 40 mg PO DAILY Qty: 90 1RF potassium chloride [Klor-Con] 20 mEq packet 20 meq PO BID Qty: 100 1RF pyridoxine (vitamin B6) 50 mg capsule 100 mg PO DAILY Qty: 90 1RF fondaparinux 2.5 mg/0.5 mL syringe 2.5 mg subcut DAILY Qty: 15 3RF epinephrine 0.3 mg/0.3 mL Auto-Injector 0.3 mg IM Q4H PRN (Reason: Allergic Reaction) buprenorphine HCl 8 mg tablet, sublingual 8 mg SUBLINGUAL UD Rx Instructions: per pt she usually does 1 tab po qam, second tab around 3pm and half tab hs Lac-Hydrin Five 5 % Lotion 1 applic EXT BID Qty: 226 0RF Cerovite Senior 0.4 mg-300 mcg- 250 mcg Tablet 1 tab PO QAM Qty: 30 0RF gabapentin 300 mg capsule 300 mg PO TID Qty: 30 0RF Discharge Orders: Discharge Order (Routine); Ordered 06/06/25 Ordered By: Jason Hull Admission Data Admit Date/Time: 06/04/25 23:19 Attending Provider: Jason Hull Admit Provider: Norma Espana Primary Care Provider: Yuri Bazzi Other Providers: Norma Espana Hospital Stay Data Consultations 06/04/25 22:40 ED Decision to Admit Stat Diagnostic Imagining Performed 06/05/25 US venous doppler UE LT Stat 06/05/25 09:42 CT angio chest PE protocol Routine Pending Results Patient Have Any Pending Studies at Discharge: No Discharge Instructions Given to Patient (Per Discharging Provider) Follow up with PMD in 2 weeks Total Time Total Time Spent Total Time Spent (In Minutes): 50 Coding Level of Care Code 69582 INP/OBS DISCH >30 MIN Diagnoses Chest pain R07.9 Chest pain type: unspecified Crohn's disease K50.90 History of DVT (deep vein thrombosis) Z86.718 Short gut syndrome K90.829
== END 2025-06-06 10:17 | disposition home or self-care (01) ==
LOC: ED 20:22 → SUATTDRO 23:19 → 4W 23:19 → INTOOBSV 23:19 → 4W 06-05 01:27

== ENCOUNTER 2025-08-24 17:31 | Inpatient (IN) ==
--- NOTE | 2025-08-24 17:41 | Emergency Department Note ---
Impression & Plan Frequent falls, Short gut syndrome, Steroid dependence, Bilateral leg weakness, Fall on stairs ED Provider Note NAME: JANAY GIL AGE: 39 SEX: F : 1985 ARRIVES VIA: Ambulance INFORMANT: Patient ED PROVIDER(S): Arturo Montesinos MD CHIEF COMPLAINT: Fall admit admit PLAN: Disposition: Admit MEDICAL DECISION MAKING: The patient is a pleasant 39-year-old woman with a past medical history of shortcut syndrome in setting of history of coronary disease status post bowel resection and ileostomy, history of DVT on fondaparinux who presents to the emergency department via EMS for a fall where she was falling down several steps when her legs became weak and gave out after walking downstairs from using the bathroom. Patient reports that she frequently gets pain in her legs and weakness related to her electrolytes being low in the setting of her short gut syndrome. The patient presents in setting of being admitted to this facility from 08/08-08/10 for generalized weakness in the setting of her short gut syndrome and hypomagnesemia and hypokalemia. She denies nausea or vomiting. She reports ongoing increased ostomy output. EKG without overt acute ischemia. CXR negative for acute cardiopulmonary process per my personal preliminary review/interpretation. WBC 14.4 K with neutrophilia and slight left shift. H/H similar to prior. Platelets within normal limits. Chemistry without metabolic acidosis. Magnesium 1.9 with IV repletion provided. Electrolytes otherwise unremarkable. LFTs unremarkable. Troponin 2.5, within normal limits. Lipase normal. TSH within normal limits. hCG negative. UA without convincing evidence of infection. Random cortisol is low at 1.6 in setting of the patient's steroid- dependence. CT of the head, C-spine, chest and pelvis were negative for acute traumatic injuries. 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 Patient was treated with IVF hydration, IV APAP as well as IV magnesium and dexamethasone. Ambulatory trial was performed to see if patient would be able to proceed with outpatient follow-up. However following minimal ambulation she began to feel aching and weakness in her legs and so admission for further management was pursued. Case was discussed with Dr. Arenas, [facility] [place], who will evaluate the patient for admission. Further management per admitting team. Triage Nursing notes reviewed and agree them. Prior/external medical records reviewed Vital Signs: reviewed Differential diagnosis: Fracture, dislocation, contusion, intra-abdominal, pneumothorax, intrathoracic, intracranial, neurologic, compartment syndrome, rhabdomyolysis, as well as other pathologies. ER treatment provided: See below. Diagnostics interpreted by me: ECG: Normal sinus rhythm, 91 bpm, no ectopy, no overt ST elevation or depression, QTc 432, QRS 54. Cardiac Monitoring: An order for continuous cardiac monitoring was placed and demonstrated Normal sinus rhythm, 91 bpm, no ectopy Laboratory studies: See below Imaging studies: See below Consultation(s): Case was discussed with Dr. Arenas, [facility] hospitalist, who will evaluate the patient for admission. HPI: Per MDM. ROS: See above HPI for pertinent positives & negatives. A total of 10 systems reviewed and were otherwise negative. VITALS:See Below PHYSICAL EXAMINATION: Primary Survey Airway: Intact Breathing: Normal, breath sounds equal bilaterally Circulation: Skin warm, distal pulses 2+, capillary refill less than 2 seconds Disability Pupils: Equal and reactive to light. GCS: 15, E = 5 V=5 M= 5 Motor Function: Moves all extremities. Sensory: No deficits Secondary Survey GEN: Well developed and poorly-nourished HEAD: Normocephalic, atraumatic. EYES: Pupils round reactive to light, conjunctiva clear, extraocular movements intact, no raccoons eyes ENT: No fluid in external acoustic canals, no hemotympanum, no fitzgerald's sign, nares patent, no septal hematoma, oropharynx clear, with dry mucous membranes and otherwise unremarkable. NECK: No JVD, midline trachea, No midline tenderness to palpation or step-offs. HEART: Regular rate and rhythm LUNGS: Clear to auscultation bilaterally. CHEST: Chest wall non-tender, no bruising/deformity ABD: No Cortez-Donohue's or Vinh's sign, soft, non-tender, no rebound or guarding, right lower quadrant ileostomy site clean dry intact. PELVIS: Stable to rock BACK: No step offs or deformities, T-L spine non tender EXT: 2+ global pulses, moving all extremities well, +5/5 muscle strength globally. Right ankle contusion without gross deformity. Subcentimeter right lateral lower leg superficial abrasion. NEURO: Normal sensorium. Cranial nerves II-XII grossly intact. 5/5 strength and SILT x 4 extremities. Arturo E Cross, MD Past Med/Surg History Problem List (Updated 08/25/25 @ 01:11 by Arturo Montesinos MD) Fall on stairs (Acute) Frequent falls (Acute) Rheumatoid arthritis Bilateral leg weakness (Acute) Steroid dependence (Acute) Short gut syndrome (Acute) Chest pain (Acute) Abnormal brain MRI Vitamin B6 deficiency Acute hypokalemia (Acute) Dizziness (Acute) Foreign body (FB) in soft tissue Crohn's disease (Acute) Neuropathy of left lower extremity Infection due to human metapneumovirus (hMPV) (Acute) Acute hypokalemia (Acute) Immunocompromised (Acute) Failure of outpatient treatment (Acute) Acute dehydration (Acute) Abdominal infection Anemia B12 deficiency Adnexal cyst Back pain Adrenal cyst Severe protein-calorie malnutrition FTT (failure to thrive) in adult Acute hypotension (Acute) Acute dehydration (Acute) Hypomagnesemia (Acute) Microcytic anemia Hypocalcemia Hypoglycemia Lesion of ovary Abdominal pain (Acute) UTI (urinary tract infection) (Acute) Acute hypokalemia (Acute) Metabolic acidosis (Acute) Iron deficiency anemia (Acute) Endometriosis (Chronic) Medical History Fall Short gut syndrome Crohn's disease of colon with fistula Chest tightness Lower back pain Bilateral flank pain Postoperative abdominal pain Sepsis History of DVT (deep vein thrombosis) History of MRSA infection "per records" Chronic pain Enterocutaneous fistula Severe anemia Protein calorie malnutrition Small bowel obstruction Surgical History Ileostomy status H/O colectomy "total colectomy with ileoanal anastomosis 03/2006" History of rectal surgery "hundreds of fistula surgeries" S/P exploratory laparotomy endometriosis H/O resection of large bowel multiple resections and clean outs Family History Grandmother (Paternal) Colorectal cancer Myocardial infarction Mother Myocardial infarction Heart disease Father Myocardial infarction Grandfather (Maternal) Myocardial infarction Grandfather (Paternal) Myocardial infarction Other Blood clot in vein Ovarian cancer Denies family history of Prostate cancer Breast cancer Social History Smoking Status: Never smoker Tobacco Type: Cigarettes Age Started Using Tobacco: 14; Age Quit Using Tobacco: 35; packs per day: 1; Cigarettes Per Day: Unknown.; Second Hand Exposure: Yes; Do You Dip or Chew Tobacco: No; Hx Alcohol Use: No Hx Substance Use: Yes Substance Use Type Other:: subutex Preferred Language: Hungarian Communication Ability: Effective Visual Impairment: No Limitations Hearing Ability: Normal Citizenship Instructor Required: No Beliefs That Will Affect Care: None marital status: Current Living Situation: Family Current Living Situation Comment: with daughter current occupational status: disabled Feels Safe at Home: Yes Childhood Exposure to Second-Hand Smoke: No Diet: regular caffeine: Yes Dental Care, Regularly: No Physical Activity Frequency: Daily Seatbelt Use: never Sunscreen Use: Yes Assistive Devices: None Allergies Allergies Allergy/AdvReac Type Severity Reaction Status Date / Time adalimumab [From Humira] Allergy Severe Anaphylaxis Verified 08/24/25 20:57 aspirin Allergy Severe ANAPHYLAXIS Verified 08/24/25 20:57 bee venom protein (honey bee) Allergy Severe Anaphylaxis Verified 08/24/25 20:57 infliximab Allergy Severe ANAPHYLAXIS Verified 08/24/25 20:57 ketorolac [From Toradol] Allergy Severe Swelling Verified 08/24/25 20:57 of Lip/Tongue/Throat NSAIDS (Non-Steroidal Allergy Severe THROAT Verified 08/24/25 20:57 Anti-Inflamma SWELLING Penicillins Allergy Severe Anaphylaxis/FULL Verified 08/24/25 20:57 BODY RASH Sulfa (Sulfonamide Allergy Severe throat Verified 08/24/25 20:57 Antibiotics) swelling azathioprine AdvReac Intermediate MIGRAINE Verified 08/24/25 20:57 Home Meds Home Medications Medication Instructions Recorded Confirmed epinephrine 0.3 mg/0.3 mL 0.3 mg IM Q4H PRN Allergic Reaction 08/26/22 08/24/25 injection, auto-injector buprenorphine HCl 8 mg sublingual 8 mg sublingual UD 10/02/23 08/24/25 tablet Previous Rx's Medication Instructions Recorded ammonium lactate 5 % lotion 1 applic EXT BID dermatitis #226 04/01/25 (Lac-Hydrin Five) grams loperamide 2 mg capsule 4 mg (2 x 2 mg) PO QID #120 caps 05/12/25 pantoprazole 40 mg tablet,delayed 40 mg PO DAILY #90 tabs 05/12/25 release potassium chloride 20 mEq oral 20 meq PO BID #100 ea 05/12/25 packet (Klor-Con) pyridoxine (vitamin B6) 50 mg 100 mg (2 x 50 mg) PO DAILY #90 05/12/25 capsule caps fondaparinux 2.5 mg/0.5 mL 2.5 mg (0.5 mL) subcut DAILY #15 mL 05/25/25 subcutaneous solution syringe nystatin 100,000 unit/gram topical 1 applic EXT TID #15 grams 08/10/25 powder (Nystop) prednisone 10 mg tablet 20 mg (2 x 10 mg) PO DAILY #60 tabs 08/10/25 Results & Data (ED) Vital Signs Vital Signs - 24 hr 08/24/25 17:37 08/24/25 18:09 08/24/25 18:42 Temperature 36.8 C Temperature Source Oral Pulse Rate 97 H 87 Pulse Rate [Apical] Pulse Rate from SpO2 Sensor 87 Pulse Rhythm Regular Respiratory Rate 14 22 Respiratory Effort / Characteristics Non-Labored Spontaneous Respiratory Depth Normal Respiratory Pattern Regular Blood Pressure 132/78 115/75 Blood Pressure [Right Arm] Blood Pressure Mean 96 88 Blood Pressure Mean [Right Arm] Blood Pressure Position Semi-fowlers Pulse Oximetry 97 99 99 Oxygen Delivery Method Room Air Room Air Room Air Sepsis Recent Fever Within 48 Hours No Sepsis New/Unexplained Change in Mental Status No Sepsis Action Taken by Nursing No Action Required 08/24/25 19:00 08/24/25 20:00 08/24/25 22:00 Temperature Temperature Source Pulse Rate 82 Pulse Rate [Apical] 92 H 75 Pulse Rate from SpO2 Sensor Pulse Rhythm Respiratory Rate 12 12 Respiratory Effort / Characteristics Non-Labored Spontaneous Non-Labored Respiratory Depth Normal Normal Respiratory Pattern Regular Blood Pressure Blood Pressure [Right Arm] 121/77 127/85 Blood Pressure Mean Blood Pressure Mean [Right Arm] 91 99 Blood Pressure Position Pulse Oximetry 100 99 Oxygen Delivery Method Room Air Room Air Sepsis Recent Fever Within 48 Hours Sepsis New/Unexplained Change in Mental Status Sepsis Action Taken by Nursing 08/24/25 22:40 08/24/25 23:00 Temperature Temperature Source Pulse Rate 64 Pulse Rate [Apical] 81 Pulse Rate from SpO2 Sensor Pulse Rhythm Respiratory Rate 18 Respiratory Effort / Characteristics Non-Labored Spontaneous Respiratory Depth Normal Respiratory Pattern Blood Pressure Blood Pressure [Right Arm] 136/85 Blood Pressure Mean Blood Pressure Mean [Right Arm] 102 Blood Pressure Position Pulse Oximetry 96 Oxygen Delivery Method Room Air Sepsis Recent Fever Within 48 Hours Sepsis New/Unexplained Change in Mental Status Sepsis Action Taken by Nursing Laboratory Data Attestation: I reviewed the patient's lab results. 08/24/25 18:32 08/24/25 17:40 Lab Results 08/24/25 08/24/25 08/24/25 Range/Units 17:40 18:32 20:18 WBC Cancelled 14.49 H RBC Cancelled 4.25 Hgb Cancelled 10.8 L Hct Cancelled 35.2 L MCV Cancelled 82.8 MCH Cancelled 25.4 MCHC Cancelled 30.7 L RDW Std Deviation Cancelled 51.8 H RDW Coeff of [place] Cancelled 17.2 H Plt Count Cancelled 279 MPV Cancelled 9.8 Immature Gran % (Auto) Cancelled 1.9 Neut % (Auto) Cancelled 82.1 Lymph % (Auto) Cancelled 9.0 [place] % (Auto) Cancelled 6.3 Eos % (Auto) Cancelled 0.4 Baso % (Auto) Cancelled 0.3 Neut # (Auto) Cancelled 11.89 H Lymph # (Auto) Cancelled 1.31 [place] # (Auto) Cancelled 0.91 H Eos # (Auto) Cancelled 0.06 Baso # (Auto) Cancelled 0.04 Immature Gran # (Auto) Cancelled 0.28 H Absolute Nucleated RBC Cancelled Nucleated RBC % (auto) Cancelled Neutrophils % (Manual) Cancelled Band Neutrophils % Cancelled Lymphocytes % (Manual) Cancelled Prolymphocyte % Cancelled Reactive Lymphs % (Man) Cancelled Monocytes % (Manual) Cancelled Eosinophils % (Manual) Cancelled Basophils % (Manual) Cancelled Metamyelocytes % (Man) Cancelled Myelocytes % (Man) Cancelled Promyelocytes % (Man) Cancelled Blast Cells % (Manual) Cancelled Plasma Cell % (Manual) Cancelled Other Cells % Cancelled Nucleated RBC % Cancelled Neutrophils # (Manual) Cancelled Band Neutrophils # Cancelled Total Absolute Neuts Cancelled Lymphocytes # (Manual) Cancelled Prolymphocyte # Cancelled Reactive Lymphs # Cancelled Total Abs Lymphocytes Cancelled Monocytes # (Manual) Cancelled Eosinophils # (Manual) Cancelled Basophils # (Manual) Cancelled Metamyelocytes # (Man) Cancelled Myelocytes # (Manual) Cancelled Promyelocytes # (Man) Cancelled Blast Cells # (Man) Cancelled Plasma Cell # (Manual) Cancelled Other Cells # Cancelled Nucleated RBCs # (Man) Cancelled Hypersegmented Neuts Cancelled Hyposegmented Neuts Cancelled Hypogranular Neuts Cancelled Large Granular Lymphs Cancelled # Lrg Granular Lymphs Cancelled Hairy Cells Cancelled Smudge Cells Cancelled Toxic Granulation Cancelled Toxic Vacuolation Cancelled Dohle Bodies Cancelled Rose Rods Cancelled Platelet Estimate Cancelled Hypogranular Platelets Cancelled Giant Platelets Cancelled Platelet Satelliting Cancelled RBC Morphology Cancelled Polychromasia Cancelled Hypochromasia Cancelled Poikilocytosis Cancelled Basophilic Stippling Cancelled Anisocytosis Cancelled Microcytosis Cancelled Macrocytosis Cancelled Spherocytes Cancelled Pappenheimer Bodies Cancelled Sickle Cells Cancelled Target Cells Cancelled Tear Drop Cells Cancelled Ovalocytes Cancelled Stomatocytes Cancelled [place] Bodies Cancelled Echinocytes Cancelled Acanthocytes (Spur) Cancelled Rouleaux Cancelled RBC Agglutinates Cancelled Schistocytes Cancelled Sezary Cell Cancelled PT 10.2 (9.0-12.0) Seconds INR 1.0 (0.9-1.1) Sodium 138 (136-145) mmol/L Potassium 4.4 (3.5-5.1) mmol/L Chloride 102 (98-107) mmol/L Carbon Dioxide 31 (21-32) mmol/L Anion Gap 5 (3-11) BUN 21 (6-23) mg/dl Creatinine 0.80 (0.6-1.2) mg/dl Est Cr Clr Drug Dosing 81.6 ml/min eGFR 94.87 BUN/Creatinine Ratio 26.3 H (10-20) Glucose 94 (70-99(Fasting)) mg/dl Calcium 9.7 (8.6-10.3) mg/dl Phosphorus 3.8 (2.5-4.9) mg/dl Magnesium 1.9 (1.7-2.4) mg/dl Total Bilirubin 0.4 (0.2-1.0) mg/dl Direct Bilirubin TNP 0.1 AST 33 (13-39) U/L ALT 34 (7-52) U/L Alkaline Phosphatase 66 (34-104) U/L Total Creatine Kinase 37 (26-192) U/L Troponin I High Sens 2.5 (0-14) pg/ml Total Protein 7.1 (6.0-8.3) gm/dl Albumin 3.8 (3.4-5.0) gm/dl Globulin 3.3 (2.5-4.0) gm/dl Albumin/Globulin Ratio 1.2 (0.9-2) Lipase 38 (11-82) U/L TSH 0.715 (0.300-4.500) uIu/ml HCG, Qual Negative (Negative) Random Cortisol 1.64 mcg/dl Blood Parasites ID Cancelled Administered Medications Discontinued Medications Buprenorphine HCl (Buprenorphine Hcl 8 Mg Subl) 8 mg SL ONE ONE Stop: 08/24/25 23:04 Last Admin: 08/24/25 23:15 Dose: 8 mg Documented By: ALEKSEY Dexamethasone Sodium Phosphate (DexamethasonePf 10 Mg/Ml Vial) 10 mg IV NOW ONE Stop: 08/24/25 20:55 Last Admin: 08/24/25 21:39 Dose: 10 mg Documented By: ALEKSEY Sodium Chloride (Nss) 1,000 mls @ 999 mls/hr IV .Q1H1M STA Stop: 08/24/25 18:56 Last Infusion: 08/24/25 19:30 Dose: Infused Documented By: Admin: 08/24/25 18:16 Dose: 999 mls/hr Documented By: LISA Acetaminophen (Ofirmev) 1,000 mg in 100 mls @ 400 mls/hr IV NOW STA Stop: 08/24/25 18:24 Last Infusion: 08/24/25 18:53 Dose: Infused Documented By: Admin: 08/24/25 18:16 Dose: 400 mls/hr Documented By: LISA Magnesium Sulfate/Dextrose (Magnesium Sulfate / D5w) 1 gm in 100 mls @ 100 mls/hr IV NOW STA Stop: 08/24/25 23:16 Last Infusion: 08/24/25 23:39 Dose: Infused Documented By: Admin: 08/24/25 22:36 Dose: 100 mls/hr Documented By: ALEKSEY Sodium Chloride (Nss) 1,000 mls @ 999 mls/hr IV .Q1H1M ONE Stop: 08/24/25 23:16 Last Infusion: 08/24/25 23:39 Dose: Infused Documented By: Admin: 08/24/25 22:36 Dose: 999 mls/hr Documented By: ALEKSEY Ioversol (Optiray 320 100ml) 90 ml IV ONCE ONE Stop: 08/24/25 19:35 Last Admin: 08/24/25 19:35 Dose: 90 ml Documented By: JAMIE Imaging Data Radiologist's Impression: Abdomen/Pelvis CT 08/24/25 18:08 Exam(s): CT ABDOMEN + PELVIS With Contrast IV Amt: 90 ml optiray 320 EXAM: CT Abdomen and Pelvis With Intravenous Contrast CLINICAL HISTORY: Reason for exam: pain fall. TECHNIQUE: Axial computed tomography images of the abdomen and pelvis with intravenous contrast. CTDI is 23.91 mGy and DLP is 796.12 mGy-cm. Automated exposure control was utilized for the study. A dose lowering technique was utilized adhering to the principles of ALARA. CONTRAST: Patient received 90 ml optiray 320 of IV contrast COMPARISON: No relevant prior studies available. FINDINGS: Lung bases: Unremarkable. No mass. No consolidation. ABDOMEN: Liver: Unremarkable. No mass. Gallbladder and bile ducts: Unremarkable. No calcified stones. No ductal dilation. Pancreas: Unremarkable. No mass. No ductal dilation. Spleen: Unremarkable. No splenomegaly. Adrenals: Unremarkable. No mass. Kidneys and ureters: Unremarkable. No solid mass. No hydronephrosis. Stomach and bowel: Ostomy site seen in the right anterior abdominal wall. There is suggestion of prior colectomy. No obstruction. PELVIS: Appendix: Not visualized Bladder: Unremarkable. No mass. Reproductive: Unremarkable as visualized. ABDOMEN and PELVIS: Intraperitoneal space: 7.1 cm diameter chronic cystic focus identified in the left pelvis. No free air. No significant fluid collection. Bones/joints: No acute fracture. No dislocation. Soft tissues: Unremarkable. Vasculature: Unremarkable. No abdominal aortic aneurysm. Lymph nodes: Unremarkable. No enlarged lymph nodes. IMPRESSION: 1. No acute traumatic injury seen 2. 7.1 cm diameter cystic lesion in the left pelvis. This can further assessed on pelvic ultrasound study. Electronically signed by: Indio Baldwin MD 08/24/25 20:40 PM Ankle X-Ray 08/24/25 18:08 Clinical History: Pain after fall 3 views of the right ankle are submitted for review. Findings: No fracture or dislocation is seen. No significant arthritic changes are noted. No other osseous abnormality is identified. There are no radiopaque foreign bodies. Impression: Unremarkable radiographs of the right ankle Electronically signed by Trace Patterson 08-24-2025 6:[address] 08/24/25 18:08 Exam(s): CT C SPINE EXAM: CT Cervical Spine Without Intravenous Contrast CLINICAL HISTORY: Reason for exam: pain fall. TECHNIQUE: Axial computed tomography images of the cervical spine without intravenous contrast. CTDI is 22.59 mGy and DLP is 437.87 mGy-cm. Automated exposure control was utilized for the study. A dose lowering technique was utilized adhering to the principles of ALARA. COMPARISON: No relevant prior studies available. FINDINGS: Vertebrae: Unremarkable. No acute fracture. Discs/spinal canal/neural foramina: No acute findings. No spinal canal stenosis. Soft tissues: Unremarkable. IMPRESSION: Normal cervical spine CT. Electronically signed by: Indio Baldwin MD 08/24/25 20:[address] 08/24/25 18:08 Exam(s): CT CHEST With Contrast IV Amt: 90 ml optiray 320 EXAM: CT Chest With Intravenous Contrast CLINICAL HISTORY: Reason for exam: pain fall. TECHNIQUE: Axial computed tomography images of the chest with intravenous contrast. CTDI is 22.59 mGy and DLP is 437.87 mGy-cm. Automated exposure control was utilized for the study. A dose lowering technique was utilized adhering to the principles of ALARA. CONTRAST: Patient received 90 ml optiray 320 of IV contrast COMPARISON: No relevant prior studies available. FINDINGS: Lungs: Unremarkable. No mass. No consolidation. Pleural space: Unremarkable. No significant effusion. No pneumothorax. Heart: Unremarkable. No cardiomegaly. No significant pericardial effusion. No significant coronary artery calcifications. Bones/joints: Unremarkable. No acute fracture. Soft tissues: Unremarkable. Vasculature: Unremarkable. No thoracic aortic aneurysm. Lymph nodes: Unremarkable. No enlarged lymph nodes. IMPRESSION: Normal chest CT. Electronically signed by: Indio Baldwin MD 08/24/25 20:32 PM Foot X-Ray 08/24/25 18:08 Clinical History: Pain after fall 3 views of the right foot are submitted for review. Findings: No fracture or dislocation is seen. No significant arthritic changes are noted. No other osseous abnormality is identified. There are no radiopaque foreign bodies. Impression: Unremarkable radiographs of the right foot Electronically signed by Trace Patterson 08-24-2025 6:[address] 08/24/25 18:08 Exam(s): CT HEAD Without Contrast EXAM: CT Head Without Intravenous Contrast CLINICAL HISTORY: Reason for exam: pain fall. TECHNIQUE: Axial computed tomography images of the head/brain without intravenous contrast. CTDI is 36.9 mGy and DLP is 546.36 mGy-cm. Automated exposure control was utilized for the study. A dose lowering technique was utilized adhering to the principles of ALARA. COMPARISON: 03/12/25 FINDINGS: Brain: Unremarkable. No hemorrhage. No significant white matter disease. No edema. Ventricles: Unremarkable. No ventriculomegaly. Bones/joints: Unremarkable. No acute fracture. Soft tissues: Unremarkable. Sinuses: Unremarkable as visualized. No acute sinusitis. Mastoid air cells: Unremarkable as visualized. No mastoid effusion. IMPRESSION: Normal head/brain CT. Electronically signed by: Indio Baldwin MD 08/24/25 20:29 PM Tibia/Fibula X-Ray 08/24/25 18:08 Clinical History: Pain after fall 2 views of the right lower leg are submitted for review. Findings: No fracture or dislocation is seen. No significant arthritic changes are noted. No other osseous abnormality is identified. There are no radiopaque foreign bodies. Impression: Unremarkable radiographs of the right lower leg Electronically signed by Trace Patterson 08-24-2025 6:51 PM Chest X-Ray 08/24/25 18:10 Technique: A frontal view of the chest was obtained Comparison is made to the prior CT dated 08/08/2025 Findings: There are no confluent pulmonary infiltrates. The heart size is within normal limits. No pleural effusion or pneumothorax is seen. There is no definite pulmonary nodule. No fracture is noted. No foreign body is seen Impression: No active disease Electronically signed by Trace Patterson 08-24-2025 6:54 PM Discharge Plan Visit Data Chief Complaint: Fall Stated Complaint: FALL ED Provider: Arturo Montesinos Discharge Problem: Frequent falls, Short gut syndrome, Steroid dependence, Bilateral leg weakness, Fall on stairs Patient Disposition: Admitted As Inpatient Condition: Fair Discharge Instructions Interventions: ED Discharge Assessment Last Done: 08/25/25 00:28 Discharge Problem: Short gut syndrome Qualifiers: Short bowel syndrome type: unspecified whether colon in continuity Qualified Code(s): K90.829 - Short bowel syndrome, unspecified Fall on stairs Qualifiers: Encounter type: initial encounter Qualified Code(s): W10.9XXA - Fall (on) (from) unspecified stairs and steps, initial encounter
[2025-08-24] MEDS: SODIUM CHLORIDE 0.9% 1,000 ML IV STA (18:16)
[2025-08-24] MEDS: ACETAMINOPHEN 1,000 MG/100 ML VIAL IV STA (18:16)
[2025-08-24 18:42] LABS: Pregnancy Test, Serum Negative (Negative)
[2025-08-24 18:43] LABS: INR 1.0 (0.9-1.1); Prothrombin Time 10.2 Seconds (9.0-12.0)
[2025-08-24 18:43] LABS: Hematocrit (blood only) 35.2 % (37.0-47.0); Hemoglobin 10.8 g/dl (12.0-16.0); Immature Granulocytes # (auto) 0.28 K/uL (0.01-0.20); Immature Granulocytes % (auto) 1.9 %; Mean Corpuscular Hemoglobin 25.4 pg (25.0-34.0); Mean Corpuscular Volume 82.8 fL (80.0-100.0); Platelet Count 279 K/uL (130-400); RDW Standard Deviation 51.8 fL (36.4-46.3); Red Blood Count 4.25 M/uL (4.20-5.40); White Blood Count 14.49 K/ul (4.8-10.8)
[2025-08-24 18:50] LABS: Alanine Aminotransferase 34 U/L (7-52); Albumin Globulin Ratio 1.2 (0.9-2); Albumin Level 3.8 gm/dl (3.4-5.0); Alkaline Phosphatase 66 U/L (34-104); Anion Gap 5 (3-11); Bilirubin,Total 0.4 mg/dl (0.2-1.0); Blood Urea Nitrogen 21 mg/dl (6-23); Calcium 9.7 mg/dl (8.6-10.3); Carbon Dioxide 31 mmol/L (21-32); Chloride 102 mmol/L (98-107); Creatinine Clr Calc Pharmacy 81.6 ml/min; Globulin 3.3 gm/dl (2.5-4.0); Glucose 94 mg/dl (70-99(Fasting)); Lipase 38 U/L (11-82); Magnesium 1.9 mg/dl (1.7-2.4); Potassium 4.4 mmol/L (3.5-5.1); Sodium 138 mmol/L (136-145); Total Protein 7.1 gm/dl (6.0-8.3)
--- NOTE | 2025-08-24 18:51 | XRay Report ---
Clinical History: Pain after fall 3 views of the right ankle are submitted for review. Findings: No fracture or dislocation is seen. No significant arthritic changes are noted. No other osseous abnormality is identified. There are no radiopaque foreign bodies. Impression: Unremarkable radiographs of the right ankle Electronically signed by Trace Patterson 08-24-2025 6:51 PM
--- NOTE | 2025-08-24 18:51 | XRay Report ---
Clinical History: Pain after fall 2 views of the right lower leg are submitted for review. Findings: No fracture or dislocation is seen. No significant arthritic changes are noted. No other osseous abnormality is identified. There are no radiopaque foreign bodies. Impression: Unremarkable radiographs of the right lower leg Electronically signed by Trace Patterson 08-24-2025 6:51 PM
--- NOTE | 2025-08-24 18:52 | XRay Report ---
Clinical History: Pain after fall 3 views of the right foot are submitted for review. Findings: No fracture or dislocation is seen. No significant arthritic changes are noted. No other osseous abnormality is identified. There are no radiopaque foreign bodies. Impression: Unremarkable radiographs of the right foot Electronically signed by Trace Patterson 08-24-2025 6:52 PM
--- NOTE | 2025-08-24 18:54 | XRay Report ---
Technique: A frontal view of the chest was obtained Comparison is made to the prior CT dated 08/08/2025 Findings: There are no confluent pulmonary infiltrates. The heart size is within normal limits. No pleural effusion or pneumothorax is seen. There is no definite pulmonary nodule. No fracture is noted. No foreign body is seen Impression: No active disease Electronically signed by Trace Patterson 08-24-2025 6:54 PM
[2025-08-24 19:28] LABS: Thyroid Stimulating Hormone 0.715 uIu/ml (0.300-4.500)
[2025-08-24] MEDS: OPTIRAY 320 100ml IV ONE (19:35)
--- NOTE | 2025-08-24 20:30 | CT Scan Report ---
Exam(s): CT HEAD Without Contrast EXAM: CT Head Without Intravenous Contrast CLINICAL HISTORY: Reason for exam: pain fall. TECHNIQUE: Axial computed tomography images of the head/brain without intravenous contrast. CTDI is 36.9 mGy and DLP is 546.36 mGy-cm. Automated exposure control was utilized for the study. A dose lowering technique was utilized adhering to the principles of ALARA. COMPARISON: 03/12/25 FINDINGS: Brain: Unremarkable. No hemorrhage. No significant white matter disease. No edema. Ventricles: Unremarkable. No ventriculomegaly. Bones/joints: Unremarkable. No acute fracture. Soft tissues: Unremarkable. Sinuses: Unremarkable as visualized. No acute sinusitis. Mastoid air cells: Unremarkable as visualized. No mastoid effusion. IMPRESSION: Normal head/brain CT. Electronically signed by: Indio Baldwin MD 08/24/25 20:29 PM
--- NOTE | 2025-08-24 20:33 | CT Scan Report ---
Exam(s): CT CHEST With Contrast IV Amt: 90 ml optiray 320 EXAM: CT Chest With Intravenous Contrast CLINICAL HISTORY: Reason for exam: pain fall. TECHNIQUE: Axial computed tomography images of the chest with intravenous contrast. CTDI is 22.59 mGy and DLP is 437.87 mGy-cm. Automated exposure control was utilized for the study. A dose lowering technique was utilized adhering to the principles of ALARA. CONTRAST: Patient received 90 ml optiray 320 of IV contrast COMPARISON: No relevant prior studies available. FINDINGS: Lungs: Unremarkable. No mass. No consolidation. Pleural space: Unremarkable. No significant effusion. No pneumothorax. Heart: Unremarkable. No cardiomegaly. No significant pericardial effusion. No significant coronary artery calcifications. Bones/joints: Unremarkable. No acute fracture. Soft tissues: Unremarkable. Vasculature: Unremarkable. No thoracic aortic aneurysm. Lymph nodes: Unremarkable. No enlarged lymph nodes. IMPRESSION: Normal chest CT. Electronically signed by: Indio Baldwin MD 08/24/25 20:32 PM
--- NOTE | 2025-08-24 20:38 | CT Scan Report ---
Exam(s): CT C SPINE EXAM: CT Cervical Spine Without Intravenous Contrast CLINICAL HISTORY: Reason for exam: pain fall. TECHNIQUE: Axial computed tomography images of the cervical spine without intravenous contrast. CTDI is 22.59 mGy and DLP is 437.87 mGy-cm. Automated exposure control was utilized for the study. A dose lowering technique was utilized adhering to the principles of ALARA. COMPARISON: No relevant prior studies available. FINDINGS: Vertebrae: Unremarkable. No acute fracture. Discs/spinal canal/neural foramina: No acute findings. No spinal canal stenosis. Soft tissues: Unremarkable. IMPRESSION: Normal cervical spine CT. Electronically signed by: Indio Baldwin MD 08/24/25 20:37 PM
--- NOTE | 2025-08-24 20:41 | CT Scan Report ---
Exam(s): CT ABDOMEN + PELVIS With Contrast IV Amt: 90 ml optiray 320 EXAM: CT Abdomen and Pelvis With Intravenous Contrast CLINICAL HISTORY: Reason for exam: pain fall. TECHNIQUE: Axial computed tomography images of the abdomen and pelvis with intravenous contrast. CTDI is 23.91 mGy and DLP is 796.12 mGy-cm. Automated exposure control was utilized for the study. A dose lowering technique was utilized adhering to the principles of ALARA. CONTRAST: Patient received 90 ml optiray 320 of IV contrast COMPARISON: No relevant prior studies available. FINDINGS: Lung bases: Unremarkable. No mass. No consolidation. ABDOMEN: Liver: Unremarkable. No mass. Gallbladder and bile ducts: Unremarkable. No calcified stones. No ductal dilation. Pancreas: Unremarkable. No mass. No ductal dilation. Spleen: Unremarkable. No splenomegaly. Adrenals: Unremarkable. No mass. Kidneys and ureters: Unremarkable. No solid mass. No hydronephrosis. Stomach and bowel: Ostomy site seen in the right anterior abdominal wall. There is suggestion of prior colectomy. No obstruction. PELVIS: Appendix: Not visualized Bladder: Unremarkable. No mass. Reproductive: Unremarkable as visualized. ABDOMEN and PELVIS: Intraperitoneal space: 7.1 cm diameter chronic cystic focus identified in the left pelvis. No free air. No significant fluid collection. Bones/joints: No acute fracture. No dislocation. Soft tissues: Unremarkable. Vasculature: Unremarkable. No abdominal aortic aneurysm. Lymph nodes: Unremarkable. No enlarged lymph nodes. IMPRESSION: 1. No acute traumatic injury seen 2. 7.1 cm diameter cystic lesion in the left pelvis. This can further assessed on pelvic ultrasound study. Electronically signed by: Indio Baldwin MD 08/24/25 20:40 PM
[2025-08-24] MEDS: dexAMETHasone**PF** 10 MG/ML VIAL IV ONE (21:39)
[2025-08-24] MEDS: SODIUM CHLORIDE 0.9% 1,000 ML IV ONE (22:36)
[2025-08-24] MEDS: MAGNESIUM SULFATE / D5W 1 GM/100 ML BAG IV STA (22:36)
--- NOTE | 2025-08-24 23:09 | History & Physical Report ---
Date of Service August 24, 2025 Assessment & Plan (1) Bilateral leg weakness: (2) Crohn's disease: (3) Steroid dependence: (4) Short gut syndrome: (5) Adnexal cyst: (6) Anemia: (7) History of DVT (deep vein thrombosis): (8) Chronic pain: (9) Frequent falls: Plan 39 yo female PMHx rheumatoid arthritis on chronic steroid therapy, Crohn's disease s/p ileostomy resulting in short gut syndrome, chronic (primarily LE) pain on buprenorphine, hx of DVT on fondaparinux, chronic anemia, L-adnexal mass, GERD admitted to the hospital s/p fall down 4-5 stairs. #Frequent Falls/Chronic LE Pain and Weakness Does have history of neuropathy in legs Unclear exact etiology for this ?neurologic cause - unclear what workup has been done for this in the past Labs on admission do not suggest significant dehydration or electrolyte abnormalities Continue pain control as needed Imaging negative for fracture PT/OT Ordered #Rheumatoid Arthritis on Chronic Steroid Therapy No obvious evidence of adrenal crisis - vitals WNL Pt states she has been taking her home medications as usual prior to admission Was given 10mg Dexamethasone in ED Will continue 50mg IV hydrocortisone q6h - would taper quickly back to home dose of 20mg prednisone daily During last hospitalization it was suggested she establish with rheumatology locally for exploration of non-steroid therapy, this should be re-addressed #Chronic Pain On buprenorphine therapy Takes 8mg qAM, 8mg at 1500, 4mg HS per patient and prior notes One dose given at time of admission Per PDMP, last fill was 04/21. Will hold off scheduling at this time - will need to be discussed with patient/pharmacy #Crohn's Disease s/p Ileostomy States there has been no change in her output recently Routine ostomy care #History of Electrolyte Abnormality Follow BMP, mag daily #Anemia Chronic, likely of chronic disease Follow CBC #Left Adnexal Mass Known, stable Should follow up with her [facility] in [place] History of Present Illness Chief Complaint: Attending addendum: I have physically seen this patient, have supervised the medical residents activities, and agree with the H&P unless as otherwise noted. Assessment and Plan: The patient is a 39-year-old female with past medical history including rheumatoid arthritis on chronic prednisone, Crohn's disease status post ileostomy resulting in short gut syndrome, chronic pain syndrome lower extremities on buprenorphine, history of DVT now on fondaparinux, chronic anemia, left adnexal mass, and GERD. She presents to the emergency department with a fall down 4-5 stairs, feeling generally weak, dehydrated, and is assessme nt for PT/OT. Frequent falls/chronic lower extremity pain and weakness- Contributing factors including not limited to: Peripheral neuropathy, possible steroid myopathy, dehydration, electrolyte disturbances, ongoing pain. CT scan head is negative CT scan chest is negative CT scan cervical spine is negative CT scan abdomen pelvis shows a 7.1 cm cyst in the left pelvis. Chest x-ray negative, right tib-fib, foot, ankle all are negative. Consult PT/OT Rheumatoid arthritis on chronic prednisone therapy- She was given dexamethasone 10 mg IV from the ED Would instead place patient on hydrocortisone 50 mg IV every 6 hours, with plan to taper back to prednisone 20 mg daily dose. 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 Chronic pain syndrome- On buprenorphine therapy Dosing as noted Will ask pharmacy to verify dosing. As noted, last PDMP fill was 04/21. Crohn's disease status post ileostomy- Is at baseline with output Routine ostomy care Anemia chronic disease- Follow serial CBC Left adnexal mass- Follows with [facility] oncology in [place] Remaining orders and notations as noted Primary Care Provider: Yuri Bazzi, 39 yo female PMHx rheumatoid arthritis on chronic steroid therapy, Crohn's disease s/p ileostomy resulting in short gut syndrome, chronic (primarily LE) pain on buprenorphine, hx of DVT on fondaparinux, chronic anemia, L-adnexal mass, GERD admitted to the hospital s/p fall down 4-5 stairs. In the days leading up to hospitalization the patient was feeling increasingly painful and weak in her b/l lower extremities. On 08/20, the patient was helping to set up for a wedding and she was on her feet most of the day. She did have a fall on this day. 08/21 and 08/22 - had constant pain throughout the day and was largely bedbound due to LE pain and weakness. 08/23 - pain was more intermittent and felt that she may have been improving. Today, 08/24, she got out of bed and was attempting to do housework. States that while descending a staircase in her home she became increasingly short of breath. According to her, this happens when her electrolytes are abnormal. She made it to the last 4-5 stairs when her legs gave out and she fell. She does not believe that she had a head strike. However, when she was trying to get up the feels that she does not fully remember the fall. This is abnormal for her. She has a long standing history of LE pain and weakness and frequently falls but always remembers the full events. She does state that she has a family history of MS and believes she may have the same as her family member has very similar symptoms. Unclear if she has ever undergone testing for this. She denies having missed dosing of any of her medications in the days leading up to the fall. She has only had her fondaparinux today. At the time of admission the patient does not appear to be in any acute distress. She states that she has a long history of intermittent SOB and chest pain but is not having any at this time. Denies abdominal pain or changes in her ostomy output. She does report pain in b/l LE. She has not had any of her buprenorphine or prednisone today. ED Course: Labs reveal mild leukocytosis, anemia, very mild hypomagnesemia, normal random cortisol. CT head, CTAP, CT C-spine, Chest CT, foot, ankle, tib/fib, and chest xrays without fracture or acute abnormalities. Recieved 1g Tylenol, 10mg dexamethasone IV, 1g Mg IV, 2L NSS Allergies Allergy/AdvReac Type Severity Reaction Status Date / Time adalimumab [From Humira] Allergy Severe Anaphylaxis Verified 08/24/25 20:57 aspirin Allergy Severe ANAPHYLAXIS Verified 08/24/25 20:57 bee venom protein (honey bee) Allergy Severe Anaphylaxis Verified 08/24/25 20:57 infliximab Allergy Severe ANAPHYLAXIS Verified 08/24/25 20:57 ketorolac [From Toradol] Allergy Severe Swelling Verified 08/24/25 20:57 of Lip/Tongue/Throat NSAIDS (Non-Steroidal Allergy Severe THROAT Verified 08/24/25 20:57 Anti-Inflamma SWELLING Penicillins Allergy Severe Anaphylaxis/FULL Verified 08/24/25 20:57 BODY RASH Sulfa (Sulfonamide Allergy Severe throat Verified 08/24/25 20:57 Antibiotics) swelling azathioprine AdvReac Intermediate MIGRAINE Verified 08/24/25 20:57 Home Medications Medication Instructions Recorded Confirmed Type epinephrine 0.3 mg/0.3 mL 0.3 mg IM Q4H PRN Allergic Reaction 08/26/22 08/24/25 History injection, auto-injector buprenorphine HCl 8 mg sublingual 8 mg sublingual UD 10/02/23 08/24/25 History tablet ammonium lactate 5 % lotion 1 applic EXT BID dermatitis #226 04/01/25 08/24/25 Rx (Lac-Hydrin Five) grams loperamide 2 mg capsule 4 mg (2 x 2 mg) PO QID #120 caps 05/12/25 08/24/25 Rx pantoprazole 40 mg tablet,delayed 40 mg PO DAILY #90 tabs 05/12/25 08/24/25 Rx release potassium chloride 20 mEq oral 20 meq PO BID #100 ea 05/12/25 08/24/25 Rx packet (Klor-Con) pyridoxine (vitamin B6) 50 mg 100 mg (2 x 50 mg) PO DAILY #90 05/12/25 08/24/25 Rx capsule caps fondaparinux 2.5 mg/0.5 mL 2.5 mg (0.5 mL) subcut DAILY #15 mL 05/25/25 08/24/25 Rx subcutaneous solution syringe nystatin 100,000 unit/gram topical 1 applic EXT TID #15 grams 08/10/25 08/24/25 Rx powder (Nystop) prednisone 10 mg tablet 20 mg (2 x 10 mg) PO DAILY #60 tabs 08/10/25 08/24/25 Rx Past Med/Surg History Problem List (Updated 08/25/25 @ 01:11 by Arturo Montesinos MD) Fall on stairs (Acute) Frequent falls (Acute) Rheumatoid arthritis Bilateral leg weakness (Acute) Steroid dependence (Acute) Short gut syndrome (Acute) Chest pain (Acute) Abnormal brain MRI Vitamin B6 deficiency Acute hypokalemia (Acute) Dizziness (Acute) Foreign body (FB) in soft tissue Crohn's disease (Acute) Neuropathy of left lower extremity Infection due to human metapneumovirus (hMPV) (Acute) Acute hypokalemia (Acute) Immunocompromised (Acute) Failure of outpatient treatment (Acute) Acute dehydration (Acute) Abdominal infection Anemia B12 deficiency Adnexal cyst Back pain Adrenal cyst Severe protein-calorie malnutrition FTT (failure to thrive) in adult Acute hypotension (Acute) Acute dehydration (Acute) Hypomagnesemia (Acute) Microcytic anemia Hypocalcemia Hypoglycemia Lesion of ovary Abdominal pain (Acute) UTI (urinary tract infection) (Acute) Acute hypokalemia (Acute) Metabolic acidosis (Acute) Iron deficiency anemia (Acute) Endometriosis (Chronic) Medical History Fall Short gut syndrome Crohn's disease of colon with fistula Chest tightness Lower back pain Bilateral flank pain Postoperative abdominal pain Sepsis History of DVT (deep vein thrombosis) History of MRSA infection "per records" Chronic pain Enterocutaneous fistula Severe anemia Protein calorie malnutrition Small bowel obstruction Surgical History Ileostomy status H/O colectomy "total colectomy with ileoanal anastomosis 03/2006" History of rectal surgery "hundreds of fistula surgeries" S/P exploratory laparotomy endometriosis H/O resection of large bowel multiple resections and clean outs Family History Grandmother (Paternal) Colorectal cancer Myocardial infarction Mother Myocardial infarction Heart disease Father Myocardial infarction Grandfather (Maternal) Myocardial infarction Grandfather (Paternal) Myocardial infarction Other Blood clot in vein Ovarian cancer Denies family history of Prostate cancer Breast cancer Social History Smoking Status: Former smoker Tobacco Type: Cigarettes Age Started Using Tobacco: 14; Age Quit Using Tobacco: 35; packs per day: 1; Cigarettes Per Day: Unknown.; Second Hand Exposure: Yes; Do You Dip or Chew Tobacco: No; Hx Alcohol Use: No Hx Substance Use: No Preferred Language: Gibraltarian Communication Ability: Effective Visual Impairment: No Limitations Hearing Ability: Normal Impregnator And Drier Required: No Beliefs That Will Affect Care: None marital status: Current Living Situation: Family Current Living Situation Comment: Lives with daughter Cris current occupational status: disabled Feels Safe at Home: Yes Childhood Exposure to Second-Hand Smoke: No Diet: regular caffeine: Yes Dental Care, Regularly: No Physical Activity Frequency: Daily Seatbelt Use: never Sunscreen Use: Yes Assistive Devices: Walker Review of Systems Review of Systems: reviewed, per HPI Physical Exam Physical Exam: Constitutional: no acute distress HEENT: NCAT, no conjunctival injection CV: regular rhythm, no murmur appreciated, extremities well-perfused, no LE edema Resp: CTABL, no wheezes/rales/rhonchi appreciated, no increased work of breathing GI: nondistended, ileostomy in place with normal output MSK: significant bruising and swelling to R ankle and foot. Able to move all limbs appropriately Skin: warm, dry, no rash appreciated Neuro: alert, oriented, no focal neurologic deficit appreciated Results & Data Results & Data Vital Signs (Past 12 Hours) Vital Signs Temp Pulse Pulse Resp BP BP Pulse Ox 08/24/25 22:40 64 08/24/25 22:00 75 12 127/85 99 08/24/25 20:00 92 H 12 121/77 100 08/24/25 19:00 82 08/24/25 18:42 87 22 115/75 99 08/24/25 18:09 99 08/24/25 17:37 36.8 C 97 H 14 132/78 97 O2 Del Method 08/24/25 22:40 08/24/25 22:00 Room Air 08/24/25 20:00 Room Air 08/24/25 19:00 08/24/25 18:42 Room Air 08/24/25 18:09 Room Air 08/24/25 17:37 Room Air Code Status & VTE Plan VTE Prophylaxis Plan VTE Prophylaxis will be ordered: Yes Resident Activity Tracking Resident Involvement: Resident Care Provided Care Provided: Adult Hospital Medicine (2) Crohn's disease Digestive disease complication type: unspecified complication Gastrointestinal tract location: unspecified location Qualified Code(s): K50.919 - Crohn's disease, unspecified, with unspecified complications (4) Short gut syndrome Short bowel syndrome type: unspecified whether colon in continuity Qualified Code(s): K90.829 - Short bowel syndrome, unspecified (6) Anemia Anemia type: iron deficiency Iron deficiency anemia type: chronic blood loss Qualified Code(s): D50.0 - Iron deficiency anemia secondary to blood loss (chronic)
[2025-08-24 23:43] LABS: Appearance Urine Clear (Clear); Glucose Urine UA Negative (Negative)
[2025-08-25 00:56] LABS: Creatine Kinase 37 U/L (26-192)
[2025-08-25] MEDS ORDERED: MAGNESIUM HYDROXIDE SUSP 30 ML UDC PO PRN (01:05)
[2025-08-25] MEDS ORDERED: POLYETHYLENE (MIRALAX) 17 GM PACK PO PRN (01:05)
[2025-08-25] MEDS ORDERED: ALUMINUM/MAGNESIUM SUSP 30 ML UDC PO PRN (01:05)
[2025-08-25] MEDS ORDERED: ONDANSETRON INJ 2 MG/ML 2 ML VIAL IV PRN (01:05)
[2025-08-25] MEDS: ACETAMINOPHEN 325 MG TAB PO PRN (01:56)
--- NOTE | 2025-08-25 02:49 | Billing Data ---
Date of Service August 25, 2025 Coding Level of Care Code 40654 INT INP/OBS CARE
[2025-08-25] MEDS ORDERED: HYDROCORTISONE SOD SUCCINATE 100 MG/2 ML VIAL IV SCH (04:00)
[2025-08-25] MEDS: HYDROCORTISONE SOD 50 MG in SYRINGE 0 ML IV SCH (04:17)
[2025-08-25 06:12] LABS: Hematocrit (blood only) 38.8 % (37.0-47.0); Hemoglobin 11.8 g/dl (12.0-16.0); Mean Corpuscular Hemoglobin 25.0 pg (25.0-34.0); Mean Corpuscular Volume 82.2 fL (80.0-100.0); Platelet Count 265 K/uL (130-400); RDW Standard Deviation 50.4 fL (36.4-46.3); Red Blood Count 4.72 M/uL (4.20-5.40); White Blood Count 10.07 K/ul (4.8-10.8)
[2025-08-25 06:31] LABS: Alanine Aminotransferase 39.0 U/L (7-52); Albumin Globulin Ratio 1.1 (0.9-2); Albumin Level 3.5 gm/dl (3.4-5.0); Alkaline Phosphatase 65.0 U/L (34-104); Anion Gap 9.0 (3-11); Bilirubin,Total 0.4 mg/dl (0.2-1.0); Blood Urea Nitrogen 16.0 mg/dl (6-23); Calcium 9.2 mg/dl (8.6-10.3); Carbon Dioxide 25.0 mmol/L (21-32); Chloride 103.0 mmol/L (98-107); Creatinine Clr Calc Pharmacy 89.6 ml/min; Globulin 3.3 gm/dl (2.5-4.0); Glucose 127.0 mg/dl (70-99(Fasting)); Magnesium 2.3 mg/dl (1.7-2.4); Potassium 4.4 mmol/L (3.5-5.1); Sodium 137.0 mmol/L (136-145); Total Protein 6.8 gm/dl (6.0-8.3)
[2025-08-25 06:35] LABS: Immature Granulocytes # (auto) 0.18 K/uL (0.01-0.20); Immature Granulocytes % (auto) 1.8 %; RBC Morphology Unremarkable
[2025-08-25] MEDS: FONDAPARINUX 2.5 MG/0.5 ML SYR SQ SCH (08:40)
[2025-08-25] MEDS: NYSTATIN POWDER 15GM BTL EXT SCH (08:40)
[2025-08-25] MEDS: POTASSIUM CHLORIDE PWD 20 MEQ PACK PO SCH (08:40)
[2025-08-25] MEDS: PYRIDOXINE HCL 50 MG TAB PO SCH (08:40)
[2025-08-25] MEDS: LOPERAMIDE HCL 2 MG CAP PO SCH (08:40)
--- NOTE | 2025-08-25 18:48 | Hospitalist Progress Note ---
Date of Service August 25, 2025 Assessment & Plan (1) Ankle sprain: (2) Chronic pain: (3) Anemia: (4) Frequent falls: Plan This patient is a 39-year-old female with history of Crohn's disease status post colectomy with ileostomy in place, RA on chronic prednisone, DVT on fondapari nux, chronic anemia, left adnexal mass, and GERD, who is presenting with pain in the left ankle after falling down 4-5 stairs. #Frequent Falls/Chronic LE Pain and Weakness/neuropathy/left ankle sprain-no clear workup on neuropathy in the past. She does have a lot of GI issues and could potentially have malabsorption. With pain in the ankle, no fractures on extensive imaging. Suspect ankle sprain. Worked with PT/OT and is able to bear weight and ambulate with a walker. On chronic Subutex and previously had been on gabapentin for neuropathy - Restart home Subutex - Start gabapentin 100 mg p.o. twice daily and assess for response - Check B12, vitamin D levels, CK in the a.m. #Left adnexal mass-had been drained previously in 2022. Was present again but stable on CT A/P 03/2025 at 9 x 6 cm.Previous biopsy was benign -advised outpt f/u with [facility] in [place] where she was seen before. -During previous hospitalization, our nurse navigator was asked to forward her CT scan from here to her gynecology-oncologist and see if they need further imaging before her appt i.e pelvic MRI, pelvic US, etc.-could be ordered by [facility] vs PCP. Unfortunately she was not able to attend her hospital follow-up appointment with PCP-this needs to be done after this discharge #Rheumatoid arthritis on chronic steroid therapy/relative adrenal insufficiency patient has been able to take her prednisone like usual. She has not followed with rheumatology in years but has tried some immunotherapies in the past. Strongly recommended follow-up with rheumatology as an outpatient and referral was made last admission. She needs steroid sparing therapy No need for stress to steroids at this time-discontinue IV hydrocortisone and start prednisone 30 mg daily and decrease down to 20 mg daily in 2 days #Chronic pain Restart home buprenorphine at home dose8 mg sublingual every morning, daily at 15:00 and 4 mg nightly #Anemia-chronic, normocytic, likely of chronic disease. Hgb 11.8. No bleeding noted -follow CBC as an outpatient -reportedly has had anaphylaxis with venofer in past -Check B12 level in the morning -Follow-up with PCP #GERDstable, no complaints at present Continue Protonix 40 mg p.o. daily #Crohn's Disease s/p Ileostomy States there has been no change in her output recently Routine ostomy care #History of DVT Continue fondaparinux Dispo-continued stay Admission and Anticipated Discharge Date Admission Date: August 24, 2025 Subjective Pt has significant pain and bruising, swelling left ankle. Reports chronic severe burning type pain in both legs chronically and reports she previously had been on gabapentin. She cannot recall if she has ever had a B12 level checked. She has chronic pain in her knees and legs as well. The nurse navigator contacted her Subutex clinic where she is under a different last name of Erik and confirmed her Subutex dosing which was then ordered Telemetry with normal sinus rhythm and normal rates Physical Exam Constitutional: WD/WN, vitals as above Respiratory: normal respiratory effort, lungs clear to auscultation Cardiovascular: RRR, no murmur, no edema Gastrointestinal (Abdomen): Inspection/Auscultation: normal bowel sounds; + abdomen abnormal to inspection (Ileostomy bag intact) and abdomen not distended Percussion/Palpation: abdomen soft; abdomen nontender Musculoskeletal: Knees with bilateral crepitus, mild effusion on right knee, no erythema Left ankle with significant ecchymosis and mild edema, decreased range of motion actively with dorsiflexion, Achilles intact, inversion and eversion intact, positive tenderness to palpation over lateral ankle Psychiatric: A+Ox3, euthymic affect Results & Data Results & Data Vital Signs (Past 12 Hours) Vital Signs Temp Pulse Pulse Resp BP Pulse Ox O2 Del Method 08/25/25 15:15 36.8 C 67 18 127/79 98 Room Air 08/25/25 13:17 64 08/25/25 11:16 36.6 C 89 18 147/86 H 98 Room Air 08/25/25 07:33 50 L 08/25/25 07:26 36.4 C L 69 18 114/74 99 Room Air Laboratory Results CBC, BMP, magnesium, LFTs, UA, reviewed PG Care Time/CCT Total # of Minutes Spent Total Time Spent with Patient: Total time spent is greater than 50% in coordination of care (as documented) at patient's floor/unit and/or counseling patient: Coding Level of Care Code 72370 SUB INP/OBS CARE 2/35MIN Diagnoses Ankle sprain S93.409A Chronic pain G89.29 Iron deficiency anemia due to chronic blood loss D50.0 Anemia type: iron deficiency Iron deficiency anemia type: chronic blood loss Frequent falls R29.6 (3) Anemia Anemia type: iron deficiency Iron deficiency anemia type: chronic blood loss Qualified Code(s): D50.0 - Iron deficiency anemia secondary to blood loss (chronic)
[2025-08-25] MEDS: MELATONIN 3 MG TAB PO PRN (20:13)
[2025-08-25] MEDS: GABAPENTIN 100 MG CAP PO SCH (20:14)
--- NOTE | 2025-08-25 21:19 | Electrocardiogram Report ---
Test Reason : Blood Pressure : */* mmHG Vent. Rate : 91 BPM Atrial Rate : 91 BPM P-R Int : 144 ms QRS Dur : 64 ms QT Int : 352 ms P-R-T Axes : -20 -11 -12 degrees QTcB Int : 432 ms Normal sinus rhythm Septal infarct (cited on or before 16-Oct-2023) Inferior infarct , age undetermined Abnormal ECG When compared with ECG of 08-Aug-2025 17:15, Inferior infarct is now Present T wave inversion now evident in Inferior leads Confirmed by Beltran Aragon ([id number]) on 08/25/2025 9:19:08 PM Referred By: REFERRED SELF Confirmed By: Beltran Aragon
[2025-08-26 06:07] LABS: Hematocrit (blood only) 36.9 % (37.0-47.0); Hemoglobin 10.9 g/dl (12.0-16.0); Immature Granulocytes # (auto) 0.13 K/uL (0.01-0.20); Immature Granulocytes % (auto) 1.0 %; Mean Corpuscular Hemoglobin 24.7 pg (25.0-34.0); Mean Corpuscular Volume 83.7 fL (80.0-100.0); Platelet Count 284 K/uL (130-400); RDW Standard Deviation 53.1 fL (36.4-46.3); Red Blood Count 4.41 M/uL (4.20-5.40); White Blood Count 13.52 K/ul (4.8-10.8)
[2025-08-26 06:24] LABS: Alanine Aminotransferase 27.0 U/L (7-52); Albumin Globulin Ratio 1.1 (0.9-2); Albumin Level 3.3 gm/dl (3.4-5.0); Alkaline Phosphatase 57.0 U/L (34-104); Anion Gap 8.0 (3-11); Bilirubin,Total 0.4 mg/dl (0.2-1.0); Blood Urea Nitrogen 26.0 mg/dl (6-23); Calcium 9.0 mg/dl (8.6-10.3); Carbon Dioxide 22.0 mmol/L (21-32); Chloride 107.0 mmol/L (98-107); Creatine Kinase 18.0 U/L (26-192); Creatinine Clr Calc Pharmacy 84.5 ml/min; Globulin 3.1 gm/dl (2.5-4.0); Glucose 94.0 mg/dl (70-99(Fasting)); Magnesium 2.2 mg/dl (1.7-2.4); Potassium 4.7 mmol/L (3.5-5.1); Sodium 137.0 mmol/L (136-145); Total Protein 6.4 gm/dl (6.0-8.3)
[2025-08-26 08:03] VITALS: O2SAT 97
[2025-08-26] MEDS ORDERED: ERGOCALCIFEROL 1250 MCG (50,000 UNITS) CAP PO SCH (11:15)
[2025-08-26] MEDS: CYANOCOBALAMIN 1000 MCG/ML VIAL IM ONE (11:43)
[2025-08-26 11:47] VITALS: BP 111/70; RESP 20; TEMP 98.4
[2025-08-26] MEDS: CHOLECALCIFEROL 125 MCG (5,000 UNITS) TAB PO SCH (12:12)
--- NOTE | 2025-08-26 13:15 | Discharge Summary ---
Discharge Summary Date of Service August 26, 2025 Principal Dx & Hospital Course #1 = Principal Diagnosis (1) Ankle sprain: (2) Frequent falls: (3) Vitamin B12 deficiency (dietary) anemia: (4) Vitamin D deficiency: Plan This patient is a 39-year-old female with history of Crohn's disease status post colectomy with ileostomy in place, RA on chronic prednisone, DVT on fondaparinux, chronic anemia, left adnexal mass, and GERD, who is presenting with pain in the left ankle after falling down 4-5 stairs. #Frequent Falls/Chronic LE Pain and Weakness/neuropathy/left ankle sprain-no clear workup on neuropathy in the past. She does have a lot of GI issues and could potentially have malabsorption. With pain in the ankle, no fractures on extensive imaging. Suspect ankle sprain. Worked with PT/OT and is able to bear weight and ambulate with a walker. On chronic Subutex and previously had been on gabapentin for neuropathy - Restart home Subutex - Start gabapentin 100 mg p.o. twice daily and assess for response - Check B12, vitamin D levels, CK in the a.m. #Vitamin B12 and iron deficiency anemia-chronic, normocytic, Hgb 10-11. No bleeding noted. Has issues with malabsorption. Previous iron studies showed significant iron deficiency in 03/2025. Reportedly has had anaphylaxis with IV Venofer in the past. B12 levels here severely low at 129. She was given 1 dose of B12 IM 1000 mcg. B12 deficiency also likely contributing to her significant neuropathy in the lower extremities -follow CBC as an outpatient - Consider alternative IV iron supplementation versus iron liquid supplement - Continue vitamin B12 1000 mcg liquid or sublingual as an outpatient daily but may need further intramuscular injections in the future -Follow-up with PCP #Vitamin D deficiency-vitamin D levels checked due to ongoing significant muscle weakness, falls, and found to be undetectable at less than 7. - Start vitamin D3 5000 units once daily - Follow levels as an outpatient #Left adnexal mass-had been drained previously in 2022. Was present again but stable on CT A/P 03/2025 at 9 x 6 cm.Previous biopsy was benign -advised outpt f/u with [facility] in [place] where she was seen before. -During previous hospitalization, our nurse navigator was asked to forward her CT scan from here to her gynecology-oncologist and see if they need further imaging before her appt i.e pelvic MRI, pelvic US, etc.-could be ordered by [facility] vs PCP. Unfortunately she was not able to attend her hospital follow-up appointment with PCP-this needs to be done after this discharge #Rheumatoid arthritis on chronic steroid therapy/relative adrenal insufficiency patient has been able to take her prednisone like usual. She has not followed with rheumatology in years but has tried some immunotherapies in the past. Strongly recommended follow-up with rheumatology as an outpatient and referral was made last admission. She needs steroid sparing therapy No need for stress to steroids at this time-continue prednisone 20 mg daily #Chronic pain/neuropathy-with severe B12 and vitamin D deficiencies as noted above, likely contributing to her pain, weakness, and neuropathy. Continue home buprenorphine at home dose8 mg sublingual every morning, daily at 15:00 and 4 mg nightly - Added on gabapentin at 200 mg p.o. twice daily and can titrate up as an outpatient - Replacing B12 and vitamin D - Consider EMG/NCS with neurology as an outpatient #GERDstable, no complaints at present. She does admit to taking up to 650 mg of aspirin 3 times a day as needed for pain and does have significant GERD symptoms with this. Continue Protonix 40 mg p.o. daily - Strongly encouraged to cut down or cut out completely her aspirin intake #Crohn's Disease s/p Ileostomy-no acute issues Routine ostomy care #History of DVT Continue fondaparinux Dispo-stable for discharge to home with home health Notes For Next Care Provider Patient identified high risk for 30- day readmission. Our hospitalist team would be glad to discuss any details of the hospital stay with you, please reach out by [place] [facility] with a good call back number and we will return your call. Needs close follow-up on neuropathy and chronic pain, vitamin B12 and vitamin D deficiencies. Also needs close follow-up with gynecology/oncology as an outpatient for her left adnexal mass Recommend referral to rheumatology potentially for diagnosis of rheumatoid arthritis Medication Changes From Visit Added gabapentin 200 mg p.o. twice daily Added vitamin D3 5000 units p.o. once daily Added vitamin B12 1000 mcg p.o. once daily Admission HPI Per Admitting Provider 39 yo female PMHx rheumatoid arthritis on chronic steroid therapy, Crohn's disease s/p ileostomy resulting in short gut syndrome, chronic (primarily LE) pain on buprenorphine, hx of DVT on fondaparinux, chronic anemia, L-adnexal mass, GERD admitted to the hospital s/p fall down 4-5 stairs. In the days leading up to hospitalization the patient was feeling increasingly painful and weak in her b/l lower extremities. On 08/20, the patient was helping to set up for a wedding and she was on her feet most of the day. She did have a fall on this day. 08/21 and 08/22 - had constant pain throughout the day and was largely bedbound due to LE pain and weakness. 08/23 - pain was more intermittent and felt that she may have been improving. Today, 08/24, she got out of bed and was attempting to do housework. States that while descending a staircase in her home she became increasingly short of breath. According to her, this happens when her electrolytes are abnormal. She made it to the last 4-5 stairs when her legs gave out and she fell. She does not believe that she had a head strike. However, when she was trying to get up the feels that she does not fully remember the fall. This is abnormal for her. She has a long standing history of LE pain and weakness and frequently falls but always remembers the full events. She does state that she has a family history of MS and believes she may have the same as her family member has very similar symptoms. Unclear if she has ever undergone testing for this. She denies having missed dosing of any of her medications in the days leading up to the fall. She has only had her fondaparinux today. At the time of admission the patient does not appear to be in any acute distress. She states that she has a long history of intermittent SOB and chest pain but is not having any at this time. Denies abdominal pain or changes in her ostomy output. She does report pain in b/l LE. She has not had any of her b uprenorphine or prednisone today. ED Course: Labs reveal mild leukocytosis, anemia, very mild hypomagnesemia, normal random cortisol. CT head, CTAP, CT C-spine, Chest CT, foot, ankle, tib/fib, and chest xrays without fracture or acute abnormalities. Recieved 1g Tylenol, 10mg dexamethasone IV, 1g Mg IV, 2L NSS Discharge Exam Constitutional WD/WN, vitals as above Respiratory normal respiratory effort, lungs clear to auscultation Cardiovascular RRR, no murmur, no edema Musculoskeletal Right ankle with ecchymosis, less swelling, 2+ dorsalis pedis pulses, cap refill normal, range of motion improving with pain with dorsiflexion Psychiatric A+Ox3, euthymic affect Discharge Plan Discharge Items Patient Disposition: Home - Home Health Services Reason For Visit: FALL Discharge Diagnosis: Fall Left ankle sprain Vitamin D deficiency Vitamin B12 deficiency with neuropathy Condition on Discharge: Fair Activity: As commented below Activity Comment: Weight-bear on right foot as tolerated with walker Bathing: No limitations Exercise/Sports: Gradually increase as tolerated Non-emergency contact: Primary Care Provider Call non-emergency contact if: you have any medication questions, your symptoms worsen, your pain is not controlled and your pain is worsening Follow-up/Referrals: Yuri Bazzi DO [Primary Care Provider] - (Follow up within 1-2 weeks) Diet: Regular Addtl Attending Provider Instructions: Please continue icing the ankle 3 times a day and elevate when possible. You can weight-bear as tolerated and use a walker to help you ambulate. The caseworker intake will arrange home health for you to have physical and Occupational Therapy at home. Please follow-up with the primary care physician. You can take gabapentin for pain and try to cut down on the amount of aspirin that you take each day. If your ankle pain is not improving, your PCP can refer you to an orthopedic surgeon for further evaluation. You were started on gabapentin to help with chronic pain of neuropathy which is likely due to a vitamin B12 deficiency. Please continue taking vitamin B12 and you also may need injections of B12 once monthly with your PCP. Your vitamin D levels were also severely low and you should continue on a vitamin D supplement once daily that can be bought [id number]. As we discussed at your last hospitalization, it is very important that you follow-up with a gynecology oncologist in [place] for the left ovarian mass. It is also recommended that you follow-up with a dental assistant teacher for your ar thritis. It was a pleasure taking care of you! If you have any questions about your care before your hospital follow-up visit with your primary care provider, please call [phone] and ask to be transferred to the [facility] office. Sincerely, Alethea Osborn M.D. Pending Studies at Discharge: No Stand-Alone Forms: My [facility], Smoking Cessation Medications and DC Order Prescriptions: New gabapentin 100 mg Capsule 200 mg PO BID Qty: 120 0RF cholecalciferol (vitamin D3) 125 mcg (5,000 unit) Tablet 5,000 unit PO QAM Qty: 30 0RF Rx Instructions: [id number]-tfk-tycnsmt cyanocobalamin (vitamin B-12) 1,000 mcg/15 mL liquid 1,000 mcg PO DAILY Qty: 240 0RF Rx Instructions: OTC Continued loperamide 2 mg capsule 4 mg PO QID Qty: 120 0RF pantoprazole 40 mg tablet,delayed release (DR/EC) 40 mg PO DAILY Qty: 90 1RF potassium chloride [Klor-Con] 20 mEq packet 20 meq PO BID Qty: 100 1RF pyridoxine (vitamin B6) 50 mg capsule 100 mg PO DAILY Qty: 90 1RF fondaparinux 2.5 mg/0.5 mL syringe 2.5 mg subcut DAILY Qty: 15 3RF epinephrine 0.3 mg/0.3 mL Auto-Injector 0.3 mg IM Q4H PRN (Reason: Allergic Reaction) buprenorphine HCl 8 mg tablet, sublingual 8 mg SUBLINGUAL UD Rx Instructions: per pt she usually does 1 tab po qam, second tab around 3pm and half tab hs Lac-Hydrin Five 5 % Lotion 1 applic EXT BID Qty: 226 0RF nystatin [Nystop] 100,000 unit/gram Powder 1 applic EXT TID Qty: 15 0RF Rx Instructions: Apply to rash around your ostomy site prednisone 10 mg tablet 20 mg PO DAILY Qty: 60 0RF Changed aspirin 325 mg Tablet 325 mg PO TID PRN (Reason: Pain) Qty: 30 0RF Discharge Orders: Discharge Order (Routine); Ordered 08/26/25 Ordered By: Alethea Osborn Admission Data Admit Date/Time: 08/24/25 23:08 Attending Provider: Alethea Osborn Admit Provider: Dave Moon Primary Care Provider: Yuri Bazzi Other Providers: Jeremie Arenas Home [facility] Stay Data Consultations 08/24/25 22:16 ED Decision to Admit Stat Diagnostic Imagining Performed 08/24/25 18:08 CT abd pelvis IV con only Stat CT cervical spine wo con Stat CT chest diagnostic w con Stat CT head/brain wo con Stat Pending Results Patient Have Any Pending Studies at Discharge: No Discharge Instructions Given to Patient (Per Discharging Provider) Please continue icing the ankle 3 times a day and elevate when possible. You can weight-bear as tolerated and use a walker to help you ambulate. The caseworker intake will arrange home health for you to have physical and Occupational Therapy at home. Please follow-up with the primary care physician. You can take gabapentin for pain and try to cut down on the amount of aspirin that you take each day. If your ankle pain is not improving, your PCP can refer you to an orthopedic surgeon for further evaluation. You were started on gabapentin to help with chronic pain of neuropathy which is likely due to a vitamin B12 deficiency. Please continue taking vitamin B12 and you also may need injections of B12 once monthly with your PCP. Your vitamin D levels were also severely low and you should continue on a vitamin D supplement once daily that can be bought [id number]. As we discussed at your last hospitalization, it is very important that you follow-up with a gynecology oncologist in [place] for the left ovarian mass. It is also recommended that you follow-up with a dental assistant teacher for your arthritis. It was a pleasure taking care of you! If you have any questions about your care before your hospital follow-up visit with your primary care provider, please call [phone] and ask to be transferred to the [facility] office. Sincerely, Alethea Osborn M.D. Total Time Total Time Spent Total Time Spent (In Minutes): 40 minutes Total Time Includes: Examination of the Patient, Discharge Planning and Medication Reconciliation Coding Level of Care Code 68618 INP/OBS DISCH >30 MIN Diagnoses Ankle sprain S93.409A Frequent falls R29.6 Vitamin B12 deficiency (dietary) anemia D51.8 Vitamin D deficiency E55.9
[2025-08-26 15:18] VITALS: PULSE 87
[2025-08-27] MEDS ORDERED: CYANOCOBALAMIN (B-12) 500 MCG TABLET PO SCH (09:00)
== END 2025-08-26 15:41 | disposition home health service (06) | DRG 74 ==
LOC: SUATTDRO → ED 17:31 → SUATTDRO 23:08 → 2N 23:08